=== PATIENT | female | born 1950 | race Caucasian/White ===

== ENCOUNTER 2016-08-28 16:53 | Emergency (ER) | payer OTHER ==
[~2016-08-28] VITALS: Ht 157.5 cm; Wt 90.4 kg
[~2016-08-28 16:53] MED LIST: ALBU18002 INH; FLUO20CA35 PO; LORA-741 PO; METO50TA16 PO; ONDA4TAB46 PO; ROPI4TAB3 PO; ZOLP10TA PO
[2016-08-28 17:01] VITALS: TEMP 37; Ht 157.5 cm; Wt 90.4 kg
[2016-08-28] MEDS ORDERED: HIV POST EXPOSURE PROPHYLAXIS KIT ONE (17:15)
--- NOTE | 2016-08-28 17:26 | EMERGENCY ROOM VISIT NOTE ---
ED Visit Note First contact with patient: 16:57 I did evaluate and examine this patient myself. I did guide management for the patient. I agree with the APC's assessment as discussed. Please see the APC's dictation for further details. I did independently review the x-rays and blood work. The patient was reaching into a toilet paper dispenser and a syringe with needle attached was impaled into her hand. It is unclear if there was anything in the syringe. There is nothing visible in the syringe itself which appears to be spring-loaded. 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 She denies any history of HIV. Given the nature of the injury , one must assume malicious intent and therefore I recommended postexposure prophylaxis. I did discuss risks and benefits with her. She did agree to postexposure prophylaxis. She will follow up closely with her doctor.
[2016-08-28] MEDS ORDERED: ONDANSETRON 4MG OD TAB PO ONE (17:45)
[2016-08-28] MEDS ORDERED: ROPI2TAB6 PO (17:59)
[2016-08-28] MEDS ORDERED: ALPR-411 PO (18:01)
--- NOTE | 2016-08-28 18:03 | DIAGNOSTIC IMAGING REPORT ---
LEFT HAND MIN 3 VIEWS ROUTINE CLINICAL HISTORY: L hand needle stick COMPARISON: None FINDINGS: Alignment of left hand is anatomic. There is severe arthritis of the left first carpometacarpal joint with extensive osteophytosis. No radiopaque foreign bodies are identified. There is no acute fracture. IMPRESSION: No acute fracture or radiopaque foreign body within the left hand. Electronically signed by: Yuan Petty M.D. 08/28/2016 6:02 PM Dictated Date/Time: 08/28/2016 6:00 PM
[2016-08-28] MEDS ORDERED: ONDA4TAB10 SL (18:08)
[2016-08-28] MEDS ORDERED: RALT400T PO (18:08)
[2016-08-28] MEDS ORDERED: CEPH500C PO (18:08)
[2016-08-28] MEDS ORDERED: TRVHP PO (18:08)
[2016-08-28 18:19] LABS: BASO % 0.9 %; BASO ABS # 0.06 K/uL (0-0.2); COMPLETE YES; EOS % 1.8 %; HEMATOCRIT 37.5 % (37-47); IG% 0.1 %; LYMPH % 20.3 %; LYMPH ABS # 1.39 K/uL (1.2-3.4); MEAN CELL VOLUME 83.5 fL (80-100); MEAN CORPUSCULAR HEMOGLOBIN 27.4 pg (25-34); MEAN CORPUSCULAR HGB CONC 32.8 g/dl (32-36); MEAN PLATELET VOLUME 9.7 fL (7.4-10.4); MONO % 10.9 %; PLATELET COUNT 280 K/uL (130-400); RED BLOOD COUNT 4.49 M/uL (4.2-5.4); WHITE BLOOD COUNT 6.85 K/uL (4.8-10.8)
[2016-08-28 18:30] LABS: PARTIAL THROMBOPLASTIN RATIO 0.8; PROTHROMBIN TIME (PATIENT) 10.3 SECONDS (9.0-12.0)
[2016-08-28 18:38] LABS: ALT/SGPT 22 U/L (12-78); AST/SGOT 14 U/L (15-37); BLOOD UREA NITROGEN 7 mg/dl (7-18); BUN/CREATININE RATIO 9.6 (10-20); CALCIUM 8.9 mg/dl (8.5-10.1); CARBON DIOXIDE 27 mmol/L (21-32); CHLORIDE 100 mmol/L (98-107); CREATININE 0.71 mg/dl (0.60-1.20); GLUCOSE 88 mg/dl (70-99); POTASSIUM 3.5 mmol/L (3.5-5.1); SODIUM 135 mmol/L (136-145)
[2016-08-28 18:40] VITALS: BP 160/90; PULSE 51; O2SAT 96
[2016-08-28 18:42] LABS: ALKALINE PHOSPHATASE 123 U/L (45-117)
[2016-08-28 18:47] LABS: HEPATITIS B AB POS
--- NOTE | 2016-08-28 19:44 | EMERGENCY ROOM VISIT NOTE ---
History First contact with patient: 16:57 Chief Complaint: NEEDLE STICK Stated Complaint: NEEDLE STUCK IN HAND History of Present Illness The patient is a 65 year old female who presents to the Emergency Room for evaluation of a needle stick injury to the left palm. The patient reports that she was reaching into a toilet roll dispenser at [facility] when she felt something sharp in her hand. As she was pulling her hand out of the dispenser, she heard something rattling around, and when pulling her handout, found a syringe and needle impaled in her hand. She did not try to remove it. She advised management at the store, who called for an ambulance to transport the patient to the emergency department. The patient reports that she was feeling slightly woozy and nauseated shortly after the injury happened. 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 Her tetanus immunization is also up-to-date. The patient is [id number]. The injury happened approximately one hour prior to arrival. Review of Systems 10 system review was performed and was negative except for pertinent positives and negatives as indicated in history of present illness Past Medical/Surgical History Medical Problems: (1) Anxiety Disorder, Unspecified (2) Diab Ashlie Wo Compl, Type Ii Or Unspec Type, Not Uncntrld (3) Diaphragmatic Hernia Without Obstruction Or Gangrene (4) Diverticulosis Colon (W/O Ment Of Hemorrhage) (5) Gastro-Esophageal Reflux Disease Without Esophagitis (6) Hyperlipidemia, Unspecified (7) Hypertension Nos (8) Hypothyroidism Nos (9) Idiopathic Scoliosis (10) Iron Deficiency Anemia, Unspecified (11) Lumbago (12) Major Depressive Disorder, Single Episode, Unspecified (13) Obesity (14) Obstructive Sleep Apnea (Adult) (Pediatric) (15) Osteoporosis Nos (16) Restless Legs Syndrome Family History FH: cancer Social History Smoking Status: Never Smoker Alcohol Use: none Drug Use: none Marital Status: Housing Status: lives with family Occupation Status: employed Current/Historical Medications Scheduled Cephalexin Monohydrate (Keflex), 500 MG PO TID Emtricitabine/Temofovir (Truvada 200/300MG), 1 TAB PO DAILY Fluoxetine (Prozac), 20 MG PO QAM Lorazepam (Ativan), 0.25 MG PO Q6H Metoprolol Tartrate (Lopressor) (Lopressor), 50 MG PO QAM Metoprolol Tartrate (Lopressor) (Lopressor), 100 MG PO HS Ondasetron Odt (Zofran Odt), 4 MG SL Q6H Raltegravir Potassium (Isentress), 400 MG PO BID Ropinirole (Requip), 2 MG PO HS Scheduled PRN Albuterol Sulfate (Proair Respiclick), 1-2 PUFF INH Q4H PRN for Shortness of Breath Alprazolam (Xanax), 0.5 MG PO BID PRN for Anxiety Zolpidem Tartrate (Ambien), 10 MG PO HS PRN for Sleep Allergies Coded Allergies: Latex1 -Allergic Contact Dermititis (Verified Allergy, Mild, RASH, 08/28/16) Nitroglycerin (Verified Allergy, Unknown, ITCHY AND HEADACHE AND VOMITTING , 08/28/16) Opioid Analgesics (Verified Allergy, Unknown, "VERY SENSITIVE" N/V, 08/28/16 ) Potassium Chloride (Verified Allergy, Unknown, HAD TO HAVE A CATH, 08/28/16) Physical Exam Vital Signs Date Time Temp Pulse Resp B/P (MAP) Pulse Ox O2 Delivery O2 Flow Rate FiO2 08/28/16 18:40 51 18 160/90 96 08/28/16 17:01 37.0 68 18 192/99 96 Room Air Physical Exam CONSTITUTIONAL: Healthy and well nourished. Alert and oriented X 3 with positive affect. Patient appears in mild discomfort. HEENT: Normocephalic, atraumatic. Pupils equal, round and reactive. NECK: Full active range of motion without discomfort. MUSCULOSKELETAL: Examination of the left hand shows a syringe and attached needle entering the palm of the hand, and directed toward the fourth metacarpal head region. Patient does have discomfort with flexion and extension of the fingers. Capillary refill of the fingertips is less than 2 seconds. There is no skin blanching at the site of injection, and there is no exit wound through the dorsum of the hand or fingers. INTEGUMENTARY: No rash or other significant dermatologic conditions noted. NEUROLOGIC: Left hand and fingers are sensory intact. Medical Decision & Procedures ER Provider Diagnostic Interpretation: My interpretation of left hand x-rays does not show any obvious bony injuries or radiopaque foreign body. Radiologist report is as follows: LEFT HAND MIN 3 VIEWS ROUTINE CLINICAL HISTORY: L hand needle stick COMPARISON: None FINDINGS: Alignment of left hand is anatomic. There is severe arthritis of the left first carpometacarpal joint with extensive osteophytosis. No radiopaque foreign bodies are identified. There is no acute fracture. IMPRESSION: No acute fracture or radiopaque foreign body within the left hand. Laboratory Results 08/28/16 18:05 Red Blood Count 4.49, Mean Corpuscular Volume 83.5, Mean Corpuscular Hemoglobin 27.4, Mean Corpuscular Hemoglobin Concent 32.8, Mean Platelet Volume 9.7, Neutrophils (%) (Auto) 66.0, Lymphocytes (%) (Auto) 20.3, Monocytes (%) (Auto) 10.9, Eosinophils (%) (Auto) 1.8, Basophils (%) (Auto) 0.9, Neutrophils # (Auto ) 4.52, Lymphocytes # (Auto) 1.39, Monocytes # (Auto) 0.75, Eosinophils # (Auto ) 0.12, Basophils # (Auto) 0.06 08/28/16 18:05 Test 08/28/16 18:05 White Blood Count 6.85 K/uL (4.8-10.8) Red Blood Count 4.49 M/uL (4.2-5.4) Hemoglobin 12.3 g/dL (12.0-16.0) Hematocrit 37.5 % (37-47) Mean Corpuscular Volume 83.5 fL (80-100) Mean Corpuscular Hemoglobin 27.4 pg (25-34) Mean Corpuscular Hemoglobin Concent 32.8 g/dl (32-36) Platelet Count 280 K/uL (130-400) Mean Platelet Volume 9.7 fL (7.4-10.4) Neutrophils (%) (Auto) 66.0 % Lymphocytes (%) (Auto) 20.3 % Monocytes (%) (Auto) 10.9 % Eosinophils (%) (Auto) 1.8 % Basophils (%) (Auto) 0.9 % Neutrophils # (Auto) 4.52 K/uL (1.4-6.5) Lymphocytes # (Auto) 1.39 K/uL (1.2-3.4) Monocytes # (Auto) 0.75 K/uL (0.11-0.59) Eosinophils # (Auto) 0.12 K/uL (0-0.5) Basophils # (Auto) 0.06 K/uL (0-0.2) RDW Standard Deviation 42.3 fL (36.4-46.3) RDW Coefficient of Variation 14.0 % (11.5-14.5) Immature Granulocyte % (Auto) 0.1 % Immature Granulocyte # (Auto) 0.01 K/uL (0.00-0.02) Prothrombin Time 10.3 SECONDS (9.0-12.0) Prothromb Time International Ratio 1.0 (0.9-1.1) Activated Partial Thromboplast Time 19.8 SECONDS (21.0-31.0) Partial Thromboplastin Ratio 0.8 Anion Gap 8.0 mmol/L (3-11) Est Creatinine Clear Calc Drug Dose 80.4 ml/min Estimated GFR () 102.2 Estimated GFR (Non- 88.1 BUN/Creatinine Ratio 9.6 (10-20) Calcium Level 8.9 mg/dl (8.5-10.1) Total Bilirubin 0.4 mg/dl (0.2-1) Direct Bilirubin < 0.1 mg/dl (0-0.2) Aspartate Amino Transf (AST/SGOT) 14 U/L (15-37) Alanine Aminotransferase (ALT/SGPT) 22 U/L (12-78) Alkaline Phosphatase 123 U/L (45-117) Total Protein 7.3 gm/dl (6.4-8.2) Albumin 3.6 gm/dl (3.4-5.0) Hepatitis B Surface Antigen NEG (NEG) Hepatitis B Surface Antibody POS Medications Administered Medications (Trade) Dose Ordered Sig/Mary Route Start Time Stop Time Status Last Admin Dose Admin Miscellaneous (Hiv Post Exposure Prophylaxis Kit) 1 ea NOW ONCE N/A 08/28/16 17:15 08/28/16 17:27 DC 08/28/16 18:06 1 EA Ondansetron HCl (Zofran Odt) 4 mg ONE ONCE PO 08/28/16 17:45 08/28/16 17:46 DC 08/28/16 18:05 4 MG ED Course Patient history and physical exam were performed. Nurse's notes were reviewed. Blood pressure is elevated, but did improve while in the emergency department with persistent elevation. Physical exam showed a syringe and needle impaled within the palm of the left hand. I did suggest performing an x-ray to determine where the needle was situated, assessing the possibility of intraosseous or other bony injury. I also discussed my concern for this being a malicious event, which is concerning for possible blood-borne pathogen. I did suggest performing lab work and starting the patient on HIV post exposure prophylaxis. The patient was also seen and examined by Dr. Mathew, ED attending physician, who also expressed his concern and also suggested HIV post exposure prophylaxis. Side effects of the medication were discussed with the patient, as well as the duration of treatment. The patient did elect HIV post exposure prophylaxis, and signed an informed consent for baseline HIV testing. IV access was established, and labs were drawn, including HIV test. Lab work was grossly normal. The patient was given Zofran ODT for her nausea. An x-ray of the hand was normal, noting that the syringe/needle was removed by Dr. Mathew prior to x-ray. The patient received a home kit for HIV postexposure prophylaxis, including Truvada and Isentress, which should cover for 3 days. The patient was provided the balance prescription for these 2 medications for a total one week. She was also provided prescriptions for Keflex and Zofran ODT. The patient was instructed to follow-up with her PCP to review her test results toward middle of next week, and to see how she is tolerating her medications. The patient reports that she no longer had any drowsiness or nausea, and was discharged with her . Medical Decision See previous section. I do feel that the patient is at high risk for possible blood-borne pathogen given the duration of this event and a large hollow bore needle. Given the high risk for malicious activity, I do feel that the patient warrants HIV postexposure prophylaxis. Impression Primary Impression: Needle stick of left hand Departure Information Dispostion Home / Self-Care Prescriptions Cephalexin Monohydrate (Keflex) 500 Mg Cap 500 MG PO TID for 7 Days, #21 CAP Prov: Mick Siddiqi PA 08/28/16 Ondasetron Odt (ZOFRAN ODT) 4 Mg Tab 4 MG SL Q6H for Nausea, #20 TAB Prov: Mick Siddiqi PA 08/28/16 Raltegravir Potassium (ISENTRESS) 400 Mg Tab 400 MG PO BID, #8 TAB Prov: Mick Siddiqi PA 08/28/16 Emtricitabine/Temofovir (Truvada 200/300MG) Tab 1 TAB PO DAILY, #4 TAB Prov: Mikc Siddiqi PA 08/28/16 Forms HOME CARE DOCUMENTATION FORM, IMPORTANT VISIT INFORMATION Patient Instructions My [facility] Additional Instructions Take Truvada and Isentriss as prescribed. Zofran ODT if needed for nausea. Follow-up with your family doctor early next week to review lab work and discuss a continued three-week treatment of your medications, pending tolerance.
--- NOTE | 2016-08-31 01:22 | EMERGENCY ROOM VISIT NOTE ---
ED Visit Note First contact with patient: 16:57 I was asked by the ED charge nurse to speak again with the patient regarding her current HIV postexposure prophylaxis medications. The patient underwent outpatient x-rays of her facial bones this afternoon on 08/30/16, after suffering a fall due to weakness. These x-rays were ordered by the patient's PCP, Dr. Pettit. The patient reports that she has had noticeable weakness and nausea after starting the medications. The Zofran ODT prescription that was prescribed by me is helping with the nausea. The patient's and son were with her today as well. The reports that Kendra is now refusing to cover her medical expenses, including her prescription medication costs. She was told that her medications would cost approximately $1000 per pill, and taking 3 pills for the next 28 days is cost prohibitive. The family admits that they have not attempted to check with their pharmacist at [facility] to see what her insurance will cover. I did discuss the case with Roselia, our clinical pharmacist, who did call [facility] pharmacy to confirm the cost of her medication. She also spoke with the patient regarding the relative risk of michele blood -borne pathogens, treatment regimen and side effects. We also explained to the family that the hospital was unable to provide these medications. I have a suspicion that since the patient has had significant side effects from the medications that she may have to stop them anyway. I did suggest that she discuss this further with her PCP. The family was happy with the discussion that was provided. I also explained that they could always have her PCP refer her to the Infectious Disease office as well, and the patient reported that she did not feel that it was necessary and will discuss further with Dr. Pettit. I did review the previous note regarding the phone conversation between the patient's son and Gail Valencia, Administration and Service Excellence, regarding location of the syringe that impaled the patient's hand. The family did not make any mention of this conversation during my time with them.
== END 2016-08-28 18:42 | disposition home or self-care (01) ==
LOC: EDBD 16:53 → C.EDB 16:54
DX: S61.442A Puncture wound with foreign body of left hand, initial encounter (principal); W46.0XXA Contact with hypodermic needle, initial encounter; F41.9 Anxiety disorder, unspecified; E11.9 Type 2 diabetes mellitus without complications; K21.9 Gastro-esophageal reflux disease without esophagitis; E78.5 Hyperlipidemia, unspecified; I10 Essential (primary) hypertension; E03.9 Hypothyroidism, unspecified; M41.20 Other idiopathic scoliosis, site unspecified; F32.9 Major depressive disorder, single episode, unspecified; E66.9 Obesity, unspecified; G47.33 Obstructive sleep apnea (adult) (pediatric); M81.0 Age-related osteoporosis without current pathological fracture; Z80.9 Family history of malignant neoplasm, unspecified; Z79.899 Other long term (current) drug therapy

== ENCOUNTER → 2016-08-30 | Outpatient (CLI) | payer OTHER ==
[~2016-08-30] MED LIST changes: +ALPR-411 PO; +CEPH500C PO; +ONDA4TAB10 SL; -ONDA4TAB46 PO; +RALT400T PO; +ROPI2TAB6 PO; -ROPI4TAB3 PO; +TRVHP PO
--- NOTE | 2016-08-30 18:51 | DIAGNOSTIC IMAGING REPORT ---
FACIAL BONES MIN 3 VIEWS RTN CLINICAL HISTORY: Syncope with left facial injury. COMPARISON STUDY: Head CT May 29, 2011. FINDINGS: No acute facial fracture is identified by radiography. There are no air-fluid levels within maxillary sinuses. Orbital floors are grossly intact. IMPRESSION: No facial fracture identified by radiography. Electronically signed by: Yuan Petty M.D. 08/30/2016 6:50 PM Dictated Date/Time: 08/30/2016 6:49 PM
== END | disposition home or self-care (01) ==
LOC: C.RAD 17:48
PROVIDERS: ATTEND Family Medicine
DX: R55 Syncope and collapse (principal); S09.93XA Unspecified injury of face, initial encounter; X58.XXXA Exposure to other specified factors, initial encounter

== ENCOUNTER 2017-06-03 11:53 | Inpatient (IN) | payer OTHER ==
[2017-06-02 20:00] VITALS: O2SAT 94
[~2017-06-03] VITALS: Ht 154.9 cm; Wt 83.0 kg
[~2017-06-03 11:53] MED LIST changes: -CEPH500C PO; -ONDA4TAB10 SL; -RALT400T PO; -TRVHP PO
[2017-06-03] MEDS ORDERED: FLUO40CA8 PO (12:25)
[2017-06-03 12:30] LABS: HEMATOCRIT 43.1 % (37-47); MEAN CELL VOLUME 84.3 fL (80-100); MEAN CORPUSCULAR HEMOGLOBIN 29.4 pg (25-34); MEAN CORPUSCULAR HGB CONC 34.8 g/dl (32-36); MEAN PLATELET VOLUME 8.9 fL (7.4-10.4); PLATELET COUNT 499 K/uL (130-400); RED CELL DISTRIBUTION WIDTH CV 13.6 % (11.5-14.5); RED CELL DISTRIBUTION WIDTH SD 41.6 fL (36.4-46.3)
[2017-06-03] MEDS ORDERED: FAMOTIDINE 20MG/5ML IV PUSH IV STA (12:35)
[2017-06-03 12:38] LABS: PTT PATIENT 25.7 SECONDS (21.0-31.0)
[2017-06-03 12:42] LABS: ALBUMIN 4.3 gm/dl (3.4-5.0); ALT/SGPT 28 U/L (12-78); AST/SGOT 22 U/L (15-37); BLOOD UREA NITROGEN 7 mg/dl (7-18); CALCIUM 9.5 mg/dl (8.5-10.1); CARBON DIOXIDE 21 mmol/L (21-32); CREATININE 0.85 mg/dl (0.60-1.20); GLUCOSE 147 mg/dl (70-99); SODIUM 128 mmol/L (136-145)
[2017-06-03 12:47] LABS: ALKALINE PHOSPHATASE 151 U/L (45-117); CKMB < 0.5 ng/ml (0.5-3.6); TOTAL PROTEIN 9.3 gm/dl (6.4-8.2)
--- NOTE | 2017-06-03 13:06 | DIAGNOSTIC IMAGING REPORT ---
CHEST ONE VIEW PORTABLE CLINICAL HISTORY: Chest pain. COMPARISON STUDY: Chest CT December 30, 2014. FINDINGS: There may be calcific tendinitis of the left rotator cuff. No pneumothorax or pleural effusion is noted. There is no evidence for pulmonary edema. Cardiomediastinal silhouette is stable. There is no consolidation to suggest pneumonia. IMPRESSION: No acute cardiopulmonary findings. Electronically signed by: Yuan Petty M.D. 06/03/2017 1:04 PM Dictated Date/Time: 06/03/2017 1:04 PM
[2017-06-03] MEDS ORDERED: SODIUM CHLORIDE 0.9% 1000ML 1,000 ML IV STA (14:14)
[2017-06-03] MEDS ORDERED: POTASSIUM CHLORIDE 10 MEQ TABCR PO STA (14:14)
[2017-06-03] MEDS ORDERED: ONDANSETRON INJ 2 MG/ML 2 ML VIAL IV STA (14:36)
[2017-06-03] MEDS ORDERED: LORAZEPAM 2 MG/ML 1 ML VIAL IV STA (14:36)
--- NOTE | 2017-06-03 15:41 | History and Physical ---
History & Physical Date & Time of Service: Jun 03, 2017 at 14:46 Chief Complaint: Chest Pain Primary Care Physician: Cierra Lincoln M.D. History of Present Illness Source: patient Ms. Alexis has been having chest pain since yesterday with weakness and nausea. She has a history of hiatal hernia which she had surgery for two years ago. She is often nauseas at baseline but today she had a large coffee ground emesis. No dark tarry stools or blood in her stool. She does not take NSAIDs, ASA or anticoagulation. The chest pain is substernal and came on while she was at rest sitting. It does not get better or worse with activity or with eating. She is sob which comes and goes. She coughs all the time which is her baseline. She has had palpitations and dizziness since yesterday ROS Constitutional: no chills, aches, sweats or fever Respiratory: see HPI Cardiac: see HPI GI: see HPI : no dysuria or hesitancy Extremities: generalized weakness Skin: no rash All other systems reviewed and negative Pmhx: hypoglycemia, htn, reactive airway, bladder distention Past Medical/Surgical History Medical Problems: (1) Anemia (2) Anxiety Disorder, Unspecified (3) Diab Ashlie Wo Compl, Type Ii Or Unspec Type, Not Uncntrld (4) Diaphragmatic Hernia Without Obstruction Or Gangrene (5) Diverticulosis Colon (W/O Ment Of Hemorrhage) (6) Gastric volvulus (7) Gastro-Esophageal Reflux Disease Without Esophagitis (8) Hyperlipidemia, Unspecified (9) Hypertension Nos (10) Hypothyroidism Nos (11) LAMBERTO (iron deficiency anemia) (12) Idiopathic Scoliosis (13) Iron Deficiency Anemia, Unspecified (14) Left knee pain (15) Lumbago (16) Major Depressive Disorder, Single Episode, Unspecified (17) Obesity (18) Obstructive Sleep Apnea (Adult) (Pediatric) (19) Osteoporosis Nos (20) Popliteal cyst (21) Restless Legs Syndrome Surgical Problems: (1) Status post Hank fundoplication Family History FH: cancer Mother and father had COPD, emphysema, heart conditions Social History Smoking Status: Never Smoker Alcohol Use: occasionally Drug Use: none Marital Status: Housing status: lives with significant other Occupational Status: retired Immunizations History of Influenza Vaccine: No History of Tetanus Vaccine?: No History of Pneumococcal: No History of Hepatitis B Vaccine: Yes Allergies Coded Allergies: Latex1 -Allergic Contact Dermititis (Verified Allergy, Mild, RASH, 06/03/17) Nitroglycerin (Verified Allergy, Unknown, ITCHY AND HEADACHE AND VOMITTING , 06/03/17) Opioid Analgesics (Verified Allergy, Unknown, "VERY SENSITIVE" N/V, 06/03/17 ) Potassium Chloride (Verified Allergy, Unknown, HAD TO HAVE A CATH, 06/03/17) Home Medications Scheduled Fluoxetine (Prozac), 40 MG PO DAILY Metoprolol Tartrate (Lopressor) (Lopressor), 50 MG PO QAM Metoprolol Tartrate (Lopressor) (Lopressor), 100 MG PO HS Ropinirole (Requip), 2 MG PO HS Scheduled PRN Albuterol Sulfate (Proair Respiclick), 1-2 PUFF INH Q4H PRN for Shortness of Breath Alprazolam (Xanax), 0.5 MG PO BID PRN for Anxiety Zolpidem Tartrate (Ambien), 10 MG PO HS PRN for Sleep Physical Exam Vital Signs Date Time Temp Pulse Resp B/P (MAP) Pulse Ox O2 Delivery O2 Flow Rate FiO2 06/03/17 13:53 72 18 97 06/03/17 13:31 134/92 06/03/17 13:23 73 19 95 06/03/17 13:01 163/99 06/03/17 12:53 72 16 94 06/03/17 12:31 153/100 06/03/17 12:23 68 14 95 06/03/17 12:20 95 Room Air 06/03/17 12:10 37.0 68 18 167/101 95 Room Air 06/03/17 12:07 167/101 06/03/17 12:06 69 General: no distress Eyes: normal inspection, PERLL Respiratory: chest non tender, clear to auscultation, normal breath sounds, no respiratory distress, no accessory muscle use Cardiac: regular rate and rhythm, no rub or gallop, no murmur, no edema, no jvd , chest pain reproducible to palpation of chest left of sternum GI/: active bowel sounds, upper left quadrant tenderness to palpation, soft, non distended Extremities: normal range of motion, normal strength, non tender Neuro/Psych: alert and oriented x 3, normal mood and affect Skin: normal color, dry Diagnostics Laboratory Results Results Past 24 Hours Test 06/03/17 11:50 06/03/17 12:27 Range/Units White Blood Count 15.00 4.8-10.8 K/uL Red Blood Count 5.11 4.2-5.4 M/uL Hemoglobin 15.0 12.0-16.0 g/dL Hematocrit 43.1 37-47 % Mean Corpuscular Volume 84.3 80-100 fL Mean Corpuscular Hemoglobin 29.4 25-34 pg Mean Corpuscular Hemoglobin Concent 34.8 32-36 g/dl RDW Standard Deviation 41.6 36.4-46.3 fL RDW Coefficient of Variation 13.6 11.5-14.5 % Platelet Count 499 130-400 K/uL Mean Platelet Volume 8.9 7.4-10.4 fL Prothrombin Time 10.2 9.0-12.0 SECONDS Prothromb Time International Ratio 1.0 0.9-1.1 Activated Partial Thromboplast Time 25.7 21.0-31.0 SECONDS Partial Thromboplastin Ratio 1.0 Sodium Level 128 136-145 mmol/L Potassium Level 3.0 3.5-5.1 mmol/L Chloride Level 93 98-107 mmol/L Carbon Dioxide Level 21 21-32 mmol/L Anion Gap 14.0 3-11 mmol/L Blood Urea Nitrogen 7 7-18 mg/dl Creatinine 0.85 0.60-1.20 mg/dl Est Creatinine Clear Calc Drug Dose 62.1 ml/min Estimated GFR () 81.6 Estimated GFR (Non- 70.4 BUN/Creatinine Ratio 7.7 10-20 Random Glucose 147 70-99 mg/dl Calcium Level 9.5 8.5-10.1 mg/dl Total Bilirubin 0.5 0.2-1 mg/dl Aspartate Amino Transf (AST/SGOT) 22 15-37 U/L Alanine Aminotransferase (ALT/SGPT) 28 12-78 U/L Alkaline Phosphatase 151 45-117 U/L Total Creatine Kinase 30 26-192 U/L Creatine Kinase MB < 0.5 0.5-3.6 ng/ml Creatine Kinase MB Ratio 0-3.0 Total Protein 9.3 6.4-8.2 gm/dl Albumin 4.3 3.4-5.0 gm/dl Globulin 5.0 2.5-4.0 gm/dl Albumin/Globulin Ratio 0.9 0.9-2 Bedside Troponin I < 0.030 0-0.045 ng/ml CXR normal EKG Normal sinus rhythm Possible Left atrial enlargement Nonspecific T wave abnormality Abnormal ECG When compared with ECG of 29-DEC-2014 21:58, T wave inversion more evident in Inferior leads Nonspecific T wave abnormality now evident in Anterolateral leads Confirmed by TRINITY MCCULLOUGH ([id number]) on 06/03/2017 1:43:16 PM Impression Assessment and Plan Ms. Alexis is a 66 year old woman here for chest pain R/o CAD/CP - admit tele obs - EKG daily and with chest pain, initial EKG showed more prominent T wave inversion in inferior lead and new T wave inversions in anterolateral leads - trend troponins, initial troponin wnl - lipids, A1c am - will hold off on ASA or other platelets given coffee ground emesis - patient's chest pain is reproducible to palpation so I think it is less likely that her chest pain is cardiac Coffee ground emesis, abdominal pain - lipase, repeat hgb pending - consult GI - protonix IV push, GI cocktail - NPO except meds, chips and sips until seen by GI Dehydration, hyponatremia, hypokalemia - due to poor intake - Hgb 15, plt 499 - likely due to dehydration - NS 40K @ 120 ml/hr - patient has an allergy to IV potassium as she states that it caused her to have to go to lab head due to chest/jaw pain the last time she received it, however given the risk of administering po given her hematemesis, will add potassium to her fluids so that it runs slow enough to avoid causing her to have a pain reaction. - 1g IV magnesium - will check level in am - prp am Difficulty swallowing, chronic cough - Speech eval Anxiety - continue home Xanax Full code No chemoprophylaxis due to coffee ground emesis Resident Physician Supervision Note: I was present with Giovanni Sorensen DISPLAY MAKER during the history and exam. I discussed the case with the resident and agree with the findings and plan as documented in the note. Any exceptions or clarifications are listed here: 66 y/o F Hx hiatal hernia surgerym chronic dysphagia, GERD, HTN, DM II, HPL - presents with acute CP and SOB followed by episode of coffee ground emesis. She denies a fever or previous such episodes. She obtained relief with NTG. Initial labs are notable for hypokalemia and hyponatremia. OE AAO x 3 S1,2 R - L sided chest wall pain with palpations CTAB NT, ND No CCE P: CP - Suspect GI source - trend Hb, PPI, GI consult - we will obtain a gastro- occult if vomiting recurs - she is assigned to telemetry for R/O of an SD although we will not currently treat with ASA or any anticoagulation - initial trop and EKG do not support ischemia Electrolytes will be repleted Will obtain a swallow eval as she reports dysphagia and coughing when she eats Documented By: Leighton Sandhu Advanced Directives Existing Advance Directive: No Existing Living Will: No Existing Power of Health And Wellness Coach: No Existing Health Care Proxy: No Resuscitation Status Full code VTE Prophylaxis Will order VTE Prophylaxis: Yes Reason for no VTE drug order: Contraindicated
[2017-06-03] MEDS ORDERED: ONDANSETRON INJ 2 MG/ML 2 ML VIAL IV PRN ×2 (15:45→18:30)
[2017-06-03] MEDS ORDERED: GI COCKTAIL PO PRN (15:45)
--- NOTE | 2017-06-03 15:57 | EMERGENCY ROOM VISIT NOTE ---
History Report prepared by Harman: Mairtza Elena Under the Supervision of: Dr. William Zaragoza M.D. 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 The patient presents to the ED by EMS. Her pain was an 8/10 at onset. She received aspirin and nitro in route. She currently rates her discomfort as a 5/10 in severity. The pain sometimes changes with movement. She reports a brief hot flash with the pain. She reports an episode of coffee ground emesis today. She has had ongoing generalized weakness. She reports chronic nausea and cough. She has constipation which she attributes to Zofran. She has a history of esophageal hernia and pericarditis. She has had cardiac catheterizations in the past. Pt denies LOC, headache, fevers, chills, diaphoresis, visual changes, neck pain, breathing difficulties, abdominal pain, back pain, melena, hematochezia, urinary symptoms, numbness, lymphadenopathy, rash, or other complaints. 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 Review of Systems See HPI for pertinent positives and negatives. A total of ten systems were reviewed and were otherwise negative. Past Medical & Surgical Medical Problems: (1) Anxiety Disorder, Unspecified (2) Chest pain (3) Diab Ashlie Wo Compl, Type Ii Or Unspec Type, Not Uncntrld (4) Diaphragmatic Hernia Without Obstruction Or Gangrene (5) Diverticulosis Colon (W/O Ment Of Hemorrhage) (6) Gastric volvulus (7) Gastro-Esophageal Reflux Disease Without Esophagitis (8) Hyperlipidemia, Unspecified (9) Hypertension Nos (10) Hypothyroidism Nos (11) LAMBERTO (iron deficiency anemia) (12) Idiopathic Scoliosis (13) Iron Deficiency Anemia, Unspecified (14) Lumbago (15) Major Depressive Disorder, Single Episode, Unspecified (16) Obesity (17) Obstructive Sleep Apnea (Adult) (Pediatric) (18) Osteoporosis Nos (19) Restless Legs Syndrome Surgical Problems: (1) Status post Hank fundoplication Family History FH: cancer Social History Smoking Status: Never Smoker Alcohol Use: none Drug Use: none Marital Status: Housing Status: lives with family Occupation Status: employed Current/Historical Medications Scheduled Fluoxetine (Prozac), 40 MG PO DAILY Metoprolol Tartrate (Lopressor) (Lopressor), 50 MG PO QAM Metoprolol Tartrate (Lopressor) (Lopressor), 100 MG PO HS Ropinirole (Requip), 2 MG PO HS Scheduled PRN Albuterol Sulfate (Proair Respiclick), 1-2 PUFF INH Q4H PRN for Shortness of Breath Alprazolam (Xanax), 0.5 MG PO BID PRN for Anxiety Zolpidem Tartrate (Ambien), 10 MG PO HS PRN for Sleep Allergies Coded Allergies: Latex1 -Allergic Contact Dermititis (Verified Allergy, Mild, RASH, 06/03/17) Nitroglycerin (Verified Allergy, Unknown, ITCHY AND HEADACHE AND VOMITTING , 06/03/17) Opioid Analgesics (Verified Allergy, Unknown, "VERY SENSITIVE" N/V, 06/03/17 ) Potassium Chloride (Verified Allergy, Unknown, HAD TO HAVE A CATH, 06/03/17) Physical Exam Vital Signs Date Time Temp Pulse Resp B/P (MAP) Pulse Ox O2 Delivery O2 Flow Rate FiO2 06/03/17 15:50 71 06/03/17 15:41 71 18 96 Room Air 06/03/17 13:53 72 18 97 06/03/17 13:31 134/92 06/03/17 13:23 73 19 95 06/03/17 13:01 163/99 06/03/17 12:53 72 16 94 06/03/17 12:31 153/100 06/03/17 12:23 68 14 95 06/03/17 12:20 95 Room Air 06/03/17 12:10 37.0 68 18 167/101 95 Room Air 06/03/17 12:07 167/101 06/03/17 12:06 69 Physical Exam GENERAL: Awake, alert, well-appearing, in no distress HENT: Normocephalic, atraumatic. Oropharynx unremarkable. EYES: Normal conjunctiva. Sclera non-icteric. NECK: Supple. No nuchal rigidity. FROM. No masses. RESPIRATORY: Clear to auscultation. No wheezes. No rales. Normal respiratory effort. CARDIAC: Normal rate. Normal rhythm. No murmurs. No rubs. Extremities warm and well perfused. Pulses equal. No JVD. GI: Soft, non-distended. No tenderness to palpation. No rebound or guarding. No masses. RECTAL: Deferred. MUSCULOSKELETAL: Atraumatic. Chest examination reveals no tenderness. The back is symmetrical on inspection without obvious abnormality. There is no CVA tenderness to palpation. No joint edema. LOWER EXTREMITIES: Calves are equal size bilaterally and non-tender. No edema. No discoloration. NEURO: Normal sensorium. No sensory or motor deficits noted. SKIN: No rash or jaundice noted. Medical Decision & Procedures ER Provider Diagnostic Interpretation: Radiology results as stated below per my review and radiologist interpretation: CHEST ONE VIEW PORTABLE CLINICAL HISTORY: Chest pain. COMPARISON STUDY: Chest CT December 30, 2014. FINDINGS: There may be calcific tendinitis of the left rotator cuff. No pneumothorax or pleural effusion is noted. There is no evidence for pulmonary edema. Cardiomediastinal silhouette is stable. There is no consolidation to suggest pneumonia. IMPRESSION: No acute cardiopulmonary findings. Electronically signed by: Yuan Petty M.D. 06/03/2017 1:04 PM Dictated Date/Time: 06/03/2017 1:04 PM Laboratory Results 06/03/17 11:50 06/03/17 11:50 Test 06/03/17 11:50 06/03/17 12:27 06/03/17 15:44 Red Blood Count 5.11 M/uL (4.2-5.4) Mean Corpuscular Volume 84.3 fL (80-100) Mean Corpuscular Hemoglobin 29.4 pg (25-34) Mean Corpuscular Hemoglobin Concent 34.8 g/dl (32-36) RDW Standard Deviation 41.6 fL (36.4-46.3) RDW Coefficient of Variation 13.6 % (11.5-14.5) Mean Platelet Volume 8.9 fL (7.4-10.4) Prothrombin Time 10.2 SECONDS (9.0-12.0) Prothromb Time International Ratio 1.0 (0.9-1.1) Activated Partial Thromboplast Time 25.7 SECONDS (21.0-31.0) Partial Thromboplastin Ratio 1.0 Anion Gap 14.0 mmol/L (3-11) Est Creatinine Clear Calc Drug Dose 62.1 ml/min Estimated GFR () 81.6 Estimated GFR (Non- 70.4 BUN/Creatinine Ratio 7.7 (10-20) Calcium Level 9.5 mg/dl (8.5-10.1) Total Bilirubin 0.5 mg/dl (0.2-1) Aspartate Amino Transf (AST/SGOT) 22 U/L (15-37) Alanine Aminotransferase (ALT/SGPT) 28 U/L (12-78) Alkaline Phosphatase 151 U/L (45-117) Total Creatine Kinase 30 U/L (26-192) Creatine Kinase MB < 0.5 ng/ml (0.5-3.6) Creatine Kinase MB Ratio (0-3.0) Total Protein 9.3 gm/dl (6.4-8.2) Albumin 4.3 gm/dl (3.4-5.0) Globulin 5.0 gm/dl (2.5-4.0) Albumin/Globulin Ratio 0.9 (0.9-2) Bedside Troponin I < 0.030 ng/ml (0-0.045) Laboratory results reviewed by me Medications Administered Medications (Trade) Dose Ordered Sig/Mary Route Start Time Stop Time Status Last Admin Dose Admin Famotidine (Pepcid 20mg Iv Push) 20 mg ONE STAT IV 06/03/17 12:35 06/03/17 12:36 DC 06/03/17 12:43 20 MG Sodium Chloride 1,000 ml @ 125 mls/hr Q8H STAT IV 06/03/17 14:14 06/03/17 22:13 06/03/17 15:30 125 MLS/HR Potassium Chloride (Klor-Con M10) 20 meq NOW STAT PO 06/03/17 14:14 06/03/17 14:16 DC 06/03/17 14:25 20 MEQ Lorazepam (Ativan Inj) 0.5 mg NOW STAT IV 06/03/17 14:36 06/03/17 14:38 DC 06/03/17 14:36 0.5 MG Ondansetron HCl (Zofran Inj) 4 mg NOW STAT IV 06/03/17 14:36 06/03/17 14:38 DC 06/03/17 14:36 4 MG ECG Per My Interpretation Indication: chest pain Rate (beats per minute): 71 Rhythm: normal sinus Findings: nonspecific-ST abn, other (left atrial enlargement) Comparison ECG Date: 29-Dec-2014 Change: Nonspecific T wave abnormality in anterior new. ED Course 1227: The patient was evaluated in room A10. A complete history and physical exam was performed. 1235: Famotidine 20 mg IV. 1346: I reevaluated the patient. I updated her on the results. 1414: Potassium Chloride 20 meq PO, NSS 1000 ml @ 125 mls/hr IV. 1420: I reevaluated the patient. She was feeling nauseous and anxious. I discussed the test results and treatment plan with her. The patient will be evaluated for further management. 1433: I discussed the patient's case with Dr. Sandhu, [facility] [place]. The patient will be evaluated for further treatment and disposition. 1436: Zofran Inj 4 mg IV, Lorazepam 0.5 mg IV. Medical Decision Prior records/ancillary studies reviewed. Triage Nursing notes reviewed and agree them. Additional history obtained from the family. The patient's history was concerning for chest pain. Differential diagnosis: Etiologies such as cardiac ischemia, aortic dissection, pulmonary embolism, pneumonia, pneumothorax, musculoskeletal, infections, pericarditis, myocarditis , esophageal rupture, gastrointestinal, as well as others were entertained. Physical examination: As above. ER treatment provided: IV Pepcid Normal saline hydration Oral potassium IV Zofran IV Ativan On reassessment the patient felt better. Diagnostic interpretation by me: The electrocardiogram was negative for pathologic change. The labs revealed a mild leukocytosis on CBC. Chemistry panel revealed hyponatremia and hypokalemia. Cardiac markers negative. Imaging studies: Chest x-ray as above The patient has some acute changes on her electric cardiogram. She has electrolyte abnormalities as well as a mild leukocytosis. Further management will be necessary in the hospital. Consultation: A consultation was placed with the hospitalist. The case was discussed and diagnostics were reviewed. The patient was evaluated in the ER for further treatment. Medication Reconcilliation Current Medication List: was personally reviewed by me Blood Pressure Screening Patient's blood pressure: Elevated blood pressure Referred to hospitalist. Consults Time Called: 1425 Consulting Physician: Dr. Sandhu [facility] hospitalist Returned Call: 1433 Discussed the patient's case. The patient will be evaluated for further treatment and disposition. Impression Primary Impression: Substernal chest pain Additional Impressions: Acute electrocardiogram changes Hyponatremia Hypokalemia Scribe Attestation The scribe's documentation has been prepared under my direction and personally reviewed by me in its entirety. I confirm that the note above accurately reflects all work, treatment, procedures, and medical decision making performed by me. Departure Information Dispostion Being Evaluated By Hospitalist Referrals Cierra Lincoln M.D. (PCP) Patient Instructions My [facility] Problem Qualifiers
[2017-06-03 16:13] LABS: HEMATOCRIT 41.5 % (37-47); HEMOGLOBIN 14.4 g/dL (12.0-16.0)
[2017-06-03] MEDS ORDERED: ALBUTEROL HFA 8 GM INHALER INH PRN (16:15)
[2017-06-03 16:45] VITALS: BP 122/90; PULSE 79; TEMP 36.9; O2SAT 94; Ht 154.9 cm; Wt 83.0 kg
[2017-06-03] MEDS ORDERED: MAGNESIUM SULFATE 1GM / D5W 1 GM in PREMIXED IN D5W 100 ML IV ONE (16:45)
[2017-06-03] MEDS ORDERED: ALUMINUM/MAGNESIUM SUSP 72 ML, LIDOCAINE HCL 2% VISCOUS SOLN 24 ML, BARCODE IDENTIFIER ... PO PRN ×2 (16:45)
[2017-06-03] MEDS: POTASSIUM CHLORIDE INJ 40 MEQ in SODIUM CHLORIDE 0.9% 1000ML 1,000 ML IV SCH (16:58)
[2017-06-03 18:22] LABS: HEMATOCRIT 39.7 % (37-47); HEMOGLOBIN 13.7 g/dL (12.0-16.0)
[2017-06-03 19:59] VITALS: BP 154/90; PULSE 76; TEMP 36.8; O2SAT 94
[2017-06-03] MEDS: ROPINIROLE HCL 1 MG TAB PO SCH (21:07)
[2017-06-03] MEDS: PANTOprazole INJ 40 MG in SYRINGE 0 ML IV SCH (21:08)
[2017-06-03] MEDS: METOPROLOL TARTRATE 50 MG TAB PO SCH (21:08)
[2017-06-03] MEDS: ZOLPIDEM TARTRATE 10 MG TAB PO PRN (23:15)
[2017-06-04] VITALS (9 sets, daily range): BP systolic 106–160; BP diastolic 66–91; PULSE 52–69; TEMP 36.4–37.2; O2SAT 92–96
[2017-06-04 00:11] LABS: HEMATOCRIT 37.6 % (37-47); HEMOGLOBIN 12.9 g/dL (12.0-16.0)
[2017-06-04] MEDS: ALPRAZOLAM 0.5 MG TAB PO PRN ×2 (01:43→23:57)
[2017-06-04] MEDS: POTASSIUM CHLORIDE INJ 40 MEQ in SODIUM CHLORIDE 0.9% 1000ML 1,000 ML IV SCH ×3 (02:47→18:18)
[2017-06-04 06:34] LABS: HEMATOCRIT 36.5 % (37-47); HEMOGLOBIN 12.5 g/dL (12.0-16.0); MEAN CELL VOLUME 85.5 fL (80-100); MEAN CORPUSCULAR HEMOGLOBIN 29.3 pg (25-34); MEAN CORPUSCULAR HGB CONC 34.2 g/dl (32-36); MEAN PLATELET VOLUME 8.4 fL (7.4-10.4); PLATELET COUNT 348 K/uL (130-400); RED CELL DISTRIBUTION WIDTH SD 43.6 fL (36.4-46.3); WHITE BLOOD COUNT 10.16 K/uL (4.8-10.8)
[2017-06-04 07:20] LABS: CALCIUM 8.7 mg/dl (8.5-10.1); CREATININE 0.96 mg/dl (0.60-1.20); POTASSIUM 3.5 mmol/L (3.5-5.1)
[2017-06-04 08:09] LABS: HEMOGLOBIN A1C 5.4 % (4.5-5.6)
[2017-06-04] MEDS: PANTOprazole INJ 40 MG in SYRINGE 0 ML IV SCH ×2 (08:23→20:41)
[2017-06-04] MEDS: METOPROLOL TARTRATE 50 MG TAB PO SCH ×2 (08:23→21:00)
[2017-06-04] MEDS: FLUOXETINE HCL 20 MG CAP PO SCH (08:23)
--- NOTE | 2017-06-04 13:15 | Progress Note ---
Subjective Date of Service: Jun 04, 2017. Subjective this is having less intense symptoms but still with some chest pressure and pain , did not have any additional vomitus and is not having some melena, when quizzed she feels this is similar to her typical Hiatal hernia issues and she did have some wretching associated with it, she has has no typical angina symptoms and gives a history of pericarditis Problem List Medical Problems: (1) Acute electrocardiogram changes Status: Acute (2) Hypokalemia Status: Acute (3) Hyponatremia Status: Acute (4) Substernal chest pain Status: Acute Review of Systems Constitutional: No fever, No chills, No weakness, No fatigue ENT: No hearing loss, No sore throat Respiratory: No cough, No sputum, No shortness of breath, No dyspnea on exertion Cardiac: + chest pain, No PND Abdomen: + pain, No nausea, No vomiting, No diarrhea Neurologic: No memory loss, No weakness Psychiatric: No depression symptoms, No anxiety Objective Vital Signs Date Time Temp Pulse Resp B/P (MAP) Pulse Ox O2 Delivery O2 Flow Rate FiO2 06/04/17 07:56 37.1 63 18 137/66 (89) 93 Room Air 06/04/17 04:00 37.2 69 20 143/82 (102) 92 Room Air 06/04/17 04:00 92 Room Air 06/04/17 00:41 36.6 67 17 106/87 (93) 96 Room Air 06/04/17 00:00 96 Room Air 06/03/17 19:59 36.8 76 20 154/90 (111) 94 Room Air 06/03/17 16:45 36.9 79 18 122/90 94 Room Air 06/03/17 16:24 137/107 06/03/17 16:07 157/103 06/03/17 16:04 167/111 06/03/17 15:50 71 06/03/17 15:41 71 18 96 Room Air 06/03/17 13:53 72 18 97 06/03/17 13:31 134/92 06/03/17 13:23 73 19 95 06/03/17 13:01 163/99 06/03/17 12:53 72 16 94 06/03/17 12:31 153/100 06/03/17 12:23 68 14 95 4/6/18 12:20 95 Room Air 06/03/17 12:10 37.0 68 18 167/101 95 Room Air 06/03/17 12:07 167/101 06/03/17 12:06 69 Physical Exam General Appearance: WD/WN, + mild distress Eyes: normal inspection, sclerae normal Neck: supple, no JVD Respiratory/Chest: chest non-tender, lungs clear, normal breath sounds Cardiovascular: regular rate, rhythm, no murmur Abdomen: normal bowel sounds, non tender, soft Extremities: no pedal edema, no calf tenderness Neurologic/Psychiatric: alert, oriented x 3 Laboratory Results Last 24 Hours Test 06/03/17 11:50 06/03/17 12:27 06/03/17 15:44 06/03/17 18:00 White Blood Count 15.00 K/uL Red Blood Count 5.11 M/uL Hemoglobin 15.0 g/dL 14.4 g/dL 13.7 g/dL Hematocrit 43.1 % 41.5 % 39.7 % Mean Corpuscular Volume 84.3 fL Mean Corpuscular Hemoglobin 29.4 pg Mean Corpuscular Hemoglobin Concent 34.8 g/dl RDW Standard Deviation 41.6 fL RDW Coefficient of Variation 13.6 % Platelet Count 499 K/uL Mean Platelet Volume 8.9 fL Prothrombin Time 10.2 SECONDS Prothromb Time International Ratio 1.0 Activated Partial Thromboplast Time 25.7 SECONDS Partial Thromboplastin Ratio 1.0 Sodium Level 128 mmol/L Potassium Level 3.0 mmol/L Chloride Level 93 mmol/L Carbon Dioxide Level 21 mmol/L Anion Gap 14.0 mmol/L Blood Urea Nitrogen 7 mg/dl Creatinine 0.85 mg/dl Est Creatinine Clear Calc Drug Dose 62.1 ml/min Estimated GFR () 81.6 Estimated GFR (Non- 70.4 BUN/Creatinine Ratio 7.7 Random Glucose 147 mg/dl Calcium Level 9.5 mg/dl Total Bilirubin 0.5 mg/dl Aspartate Amino Transf (AST/SGOT) 22 U/L Alanine Aminotransferase (ALT/SGPT) 28 U/L Alkaline Phosphatase 151 U/L Total Creatine Kinase 30 U/L Creatine Kinase MB < 0.5 ng/ml Creatine Kinase MB Ratio Total Protein 9.3 gm/dl Albumin 4.3 gm/dl Globulin 5.0 gm/dl Albumin/Globulin Ratio 0.9 Bedside Troponin I < 0.030 ng/ml Lipase 82 U/L Troponin I < 0.015 ng/ml Test 06/03/17 23:57 06/04/17 00:07 06/04/17 06:04 06/04/17 06:24 Hemoglobin 12.9 g/dL 12.5 g/dL Hematocrit 37.6 % 36.5 % Troponin I < 0.015 ng/ml Urine Color DK YELLOW Urine Appearance CLOUDY Urine pH 5.0 Urine Specific [place] 1.028 Urine Protein 2+ Urine Glucose (UA) NEG Urine Ketones TRACE Urine Occult Blood 1+ Urine Nitrite NEG Urine Bilirubin NEG Urine Urobilinogen NEG Urine Leukocyte Esterase MODERATE Urine WBC (Auto) >30 /hpf Urine RBC (Auto) 0-4 /hpf Urine Hyaline Casts (Auto) 10-30 /lpf Urine Epithelial Cells (Auto) >30 /lpf Urine Bacteria (Auto) 4+ Urine Crystals CALCIUM OXALATE Urine Pathogenic Casts /lpf White Blood Count 10.16 K/uL Red Blood Count 4.27 M/uL Mean Corpuscular Volume 85.5 fL Mean Corpuscular Hemoglobin 29.3 pg Mean Corpuscular Hemoglobin Concent 34.2 g/dl RDW Standard Deviation 43.6 fL RDW Coefficient of Variation 14.0 % Platelet Count 348 K/uL Mean Platelet Volume 8.4 fL Sodium Level 133 mmol/L Potassium Level 3.5 mmol/L Chloride Level 103 mmol/L Carbon Dioxide Level 21 mmol/L Anion Gap 9.0 mmol/L Blood Urea Nitrogen 15 mg/dl Creatinine 0.96 mg/dl Est Creatinine Clear Calc Drug Dose 54.9 ml/min Estimated GFR () 70.4 Estimated GFR (Non- 60.8 BUN/Creatinine Ratio 16.0 Random Glucose 95 mg/dl Calcium Level 8.7 mg/dl Magnesium Level 2.1 mg/dl Triglycerides Level 223 mg/dl Cholesterol Level 256 mg/dl HDL Cholesterol 33 mg/dl LDL Cholesterol, Calculated 178 mg/dl VLDL Cholesterol, Calculated 45 mg/dl Cholesterol/HDL Ratio 7.8 Assessment and Plan Ms. Alexis is a 66 year old woman here for chest pain, had coffee ground emesis and history of surgery for Hiatal hermia ECG with T wave inversion that seems new she does give a history of pericarditis in the distant past associated with T wave changes, no concurrent chest pain -no abnormal trend of troponins - initially held ASA or other platelets given coffee ground emesis she does carry risk factors of htn, dm and family history Coffee ground emesis, abdominal pain, history of Hiatial hernia repair with wretching could be luana wies like issue consult GI, protonix IV bid allow clear liquids hyponatremia, hypokalemia, ivf Anxiety home Xanax, insomnia, using ambien Full code No chemoprophylaxis due to coffee ground emesis
--- NOTE | 2017-06-04 15:22 | Gastroenterology Progress Note ---
Progress Note Date of Service: Jun 04, 2017 Subjective Pt evaluation today including: conversation w/ patient, conversation w/ family (), physical exam, chart review, lab review, review of studies, review of inpatient medication list CC f/u nausea, coffee ground emesis, dysphagia HPI DR Laws saw patient in consult yesterday and told me about patient but do not see dictation in chart. Pt states she has coughing with eating but is not clear if she has bolus slowing throughout esophagus. She will get intermittent nausea also. Just prior to this admit had coffee ground emesis. Today she states mild abd pain. Tolerated clear liquids and no emesis. Small hard stool this am. Review of Systems Respiratory: + shortness of breath (she states weeks or months predating this admit) Cardiac: No chest pain Medications Current Inpatient Medications Medications (Trade) Dose Ordered Sig/Mary Route Start Time Stop Time Status Last Admin Dose Admin Potassium Chloride 40 meq/ Sodium Chloride 1,020 ml @ 120 mls/hr Q8H30M IV 06/03/17 16:45 07/03/17 16:44 06/04/17 09:57 120 MLS/HR Pantoprazole Sodium 40 mg/ Syringe 10 ml @ 5 mls/min DAILY@09,21 IV 06/03/17 21:00 07/03/17 20:59 06/04/17 08:23 5 MLS/MIN Alprazolam (Xanax Tab) 0.5 mg BID PRN PO 06/03/17 15:15 07/03/17 15:14 06/04/17 01:43 0.5 MG Fluoxetine HCl (Prozac Cap) 40 mg DAILY PO 06/04/17 09:00 07/04/17 08:59 06/04/17 08:23 40 MG Metoprolol Tartrate (Lopressor Tab) 50 mg QAM PO 06/04/17 09:00 07/04/17 08:59 06/04/17 08:23 50 MG Metoprolol Tartrate (Lopressor Tab) 100 mg HS PO 06/03/17 21:00 07/03/17 20:59 06/03/17 21:08 100 MG Ropinirole HCl (Requip Tab) 2 mg HS PO 06/03/17 21:00 07/03/17 20:59 06/03/17 21:07 2 MG Zolpidem Tartrate (Ambien Tab) 10 mg HS PRN PO 06/03/17 15:15 07/03/17 15:14 06/03/17 23:15 10 MG Albuterol (Ventolin Hfa Inhaler) 2 puffs Q4H PRN INH 06/03/17 16:15 07/03/17 16:14 Ondansetron HCl (Zofran Inj) 4 mg Q6H PRN IV 06/03/17 15:45 07/03/17 15:44 Al Hydroxide/Mg Hydroxide/ Lidocaine HCl/ Barcode Q4H PRN PO 06/03/17 16:45 07/03/17 16:44 Ondansetron HCl (Zofran Inj) 4 mg Q4H PRN IV 06/03/17 18:30 07/03/17 18:29 Objective Vital Signs Date Time Temp Pulse Resp B/P (MAP) Pulse Ox O2 Delivery O2 Flow Rate FiO2 06/04/17 12:00 Room Air 06/04/17 11:48 36.4 61 18 128/84 (99) 93 Room Air 06/04/17 08:00 Room Air 06/04/17 07:56 37.1 63 18 137/66 (89) 93 Room Air 06/04/17 04:00 37.2 69 20 143/82 (102) 92 Room Air 06/04/17 04:00 92 Room Air 06/04/17 00:41 36.6 67 17 106/87 (93) 96 Room Air 06/04/17 00:00 96 Room Air 06/03/17 19:59 36.8 76 20 154/90 (111) 94 Room Air 06/03/17 16:45 36.9 79 18 122/90 94 Room Air 06/03/17 16:24 137/107 06/03/17 16:07 157/103 06/03/17 16:04 167/111 06/03/17 15:50 71 06/03/17 15:41 71 18 96 Room Air Physical Exam General Appearance: WD/WN, no apparent distress Respiratory/Chest: lungs clear, no respiratory distress Cardiovascular: regular rate, rhythm, no murmur Abdomen: normal bowel sounds, non tender, soft, no organomegaly, no pulsatile mass Neurologic/Psych: alert, normal mood/affect, oriented x 3 Skin: normal color Laboratory Results Last 24 Hours Test 06/03/17 15:44 06/03/17 18:00 06/03/17 23:57 06/04/17 00:07 Hemoglobin 14.4 g/dL 13.7 g/dL 12.9 g/dL Hematocrit 41.5 % 39.7 % 37.6 % Lipase 82 U/L Troponin I < 0.015 ng/ml < 0.015 ng/ml Test 06/04/17 06:04 06/04/17 06:24 Urine Color DK YELLOW Urine Appearance CLOUDY Urine pH 5.0 Urine Specific [place] 1.028 Urine Protein 2+ Urine Glucose (UA) NEG Urine Ketones TRACE Urine Occult Blood 1+ Urine Nitrite NEG Urine Bilirubin NEG Urine Urobilinogen NEG Urine Leukocyte Esterase MODERATE Urine WBC (Auto) >30 /hpf Urine RBC (Auto) 0-4 /hpf Urine Hyaline Casts (Auto) 10-30 /lpf Urine Epithelial Cells (Auto) >30 /lpf Urine Bacteria (Auto) 4+ Urine Crystals CALCIUM OXALATE Urine Pathogenic Casts /lpf White Blood Count 10.16 K/uL Red Blood Count 4.27 M/uL Hemoglobin 12.5 g/dL Hematocrit 36.5 % Mean Corpuscular Volume 85.5 fL Mean Corpuscular Hemoglobin 29.3 pg Mean Corpuscular Hemoglobin Concent 34.2 g/dl RDW Standard Deviation 43.6 fL RDW Coefficient of Variation 14.0 % Platelet Count 348 K/uL Mean Platelet Volume 8.4 fL Sodium Level 133 mmol/L Potassium Level 3.5 mmol/L Chloride Level 103 mmol/L Carbon Dioxide Level 21 mmol/L Anion Gap 9.0 mmol/L Blood Urea Nitrogen 15 mg/dl Creatinine 0.96 mg/dl Est Creatinine Clear Calc Drug Dose 54.9 ml/min Estimated GFR () 70.4 Estimated GFR (Non- 60.8 BUN/Creatinine Ratio 16.0 Random Glucose 95 mg/dl Estimated Average Glucose 108 mg/dl Hemoglobin A1c 5.4 % Calcium Level 8.7 mg/dl Magnesium Level 2.1 mg/dl Triglycerides Level 223 mg/dl Cholesterol Level 256 mg/dl HDL Cholesterol 33 mg/dl LDL Cholesterol, Calculated 178 mg/dl VLDL Cholesterol, Calculated 45 mg/dl Cholesterol/HDL Ratio 7.8 Assessment and Plan nausea coffee ground emesis dysphagia s/p Hank fundoplication Hgb dropped but no melena or red stools or ongoing hematesis to suggest active bleeding. Continue ppi bid. Coughing with eating suggests oropharygeal dysphagia so recommend elective videofluoro swallow study with speech path. For workup for possible esophageal dysphagia and coffee ground emesis recommend EGD if cleared from cardio/pulmonary standpoint or barium swallow/UGI. If tolerates clears well today could advance to soft tomorrow.
--- NOTE | 2017-06-04 15:45 | ECHOCARDIOGRAM REPORT ---
*NOTICE TO RECEIVING REPUBLICAN AGENCY This information is strictly Confidential and protected under [place] law. [place] law prohibits you from making any further disclosure of this information unless further disclosure is expressly permitted by the written consent of the person to whom it pertains or is authorized by law. A general authorization for the release of medical or other information is not sufficient for this purpose. Hospital accepts no responsibility if the information is made available to any other person, INCLUDING THE PATIENT. Interpretation Summary * Name: MIGUEL ROSALES Study Date: 06/04/2017 09:06 AM BP: 137/66 mmHg * Patient Location: .2E\S\E212\S\1 HR: 49 * : 1950 (M/d/yyyy) Gender: Female Height: 61 in * Age: 66 yrs Ethnicity: [place] Weight: 183 lb * Ordering Physician: Morales Brand * Referring Physician: Self, Referred * Performed By: Obie Mohamud RDCS * * Reason For Study: Chest pain * BSA: 1.8 m2 * -- Conclusions -- * The left ventricle is normal in size. * Left ventricular systolic function is normal. * Ejection Fraction = 60-65%. * The left ventricular wall motion is normal. * There is moderate concentric left ventricular hypertrophy. * Grade I diastolic dysfunction, (abnormal relaxation pattern). * There is mild mitral regurgitation. * The left atrium is mildly dilated. * There is mild tricuspid regurgitation. * Right ventricular systolic pressure is normal. Procedure Details * A complete two-dimensional transthoracic echocardiogram was performed (2D, M-mode, Doppler and color flow Doppler). * The study was technically adequate. Left Ventricle * The left ventricle is normal in size. * There is moderate concentric left ventricular hypertrophy. * Left ventricular systolic function is normal. * Ejection Fraction = 60-65%. * The left ventricular wall motion is normal. Right Ventricle * The right ventricle is normal in size and function. Atria * The left atrium is mildly dilated. * Right atrial size is normal. * The interatrial septum is intact with no evidence for an atrial septal defect. Mitral Valve * There is mild mitral annular calcification. * There is mild mitral regurgitation. Tricuspid Valve * The tricuspid valve is normal in structure and function. * There is mild tricuspid regurgitation. * Right ventricular systolic pressure is normal. Aortic Valve * The aortic valve is trileaflet. * The aortic valve opens well. * Aortic valve sclerosis mild, without significant aortic valvular stenosis. * No hemodynamically significant valvular aortic stenosis. * There is no significant aortic regurgitation. Pulmonic Valve * The pulmonic valve is not well seen, but is grossly normal. * There is no significant pulmonary regurgitation. Great Vessels * Ascending aorta of normal dimension * The aortic root is normal size. * No obvious dissection could be visualized. * The pulmonary artery is normal size. Pericardium/Pleural * There is no pericardial effusion. Great Vessels * Normal inferior vena cava diameter and respiratory variation suggests normal central venous pressure. Left Ventricular Diastolic Function * Grade I diastolic dysfunction, (abnormal relaxation pattern). MMode 2D Measurements and Calculations IVSd 1.3 cm IVSs 1.7 cm LVIDd 5.1 cm LVIDs 3.3 cm LVPWd 1.3 cm LVPWs 1.7 cm IVS/LVPW 1.0 FS 35.4 % EDV(Teich) 123.7 ml ESV(Teich) 44.0 ml EF(Teich) 64.4 % EDV(cubed) 132.5 ml ESV(cubed) 35.8 ml EF(cubed) 73.0 % % IVS thick 29.4 % % LVPW thick 31.9 % LV mass(C)d 266.7 grams LV mass(C)dI 146.6 grams/m\S\2 LV mass(C)s 217.1 grams LV mass(C)sI 119.3 grams/m\S\2 SV(Teich) 79.7 ml SI(Teich) 43.8 ml/m\S\2 SV(cubed) 96.7 ml SI(cubed) 53.2 ml/m\S\2 EPSS 0.78 cm Ao root diam 2.9 cm Ao root area 6.6 cm\S\2 ACS 1.7 cm LA dimension 4.6 cm asc Aorta Diam 3.8 cm LA/Ao 1.6 LVOT diam 2.1 cm LVOT area 3.5 cm\S\2 LVAd ap4 28.7 cm\S\2 LVLd ap4 7.8 cm EDV(MOD-sp4) 86.7 ml EDV(sp4-el) 89.9 ml LVAs ap4 15.7 cm\S\2 LVLs ap4 6.2 cm ESV(MOD-sp4) 33.5 ml ESV(sp4-el) 33.8 ml EF(MOD-sp4) 61.4 % EF(sp4-el) 62.5 % LVAd ap2 25.5 cm\S\2 LVLd ap2 7.7 cm EDV(MOD-sp2) 69.1 ml EDV(sp2-el) 72.0 ml LVAs ap2 13.9 cm\S\2 LVLs ap2 6.3 cm ESV(MOD-sp2) 24.9 ml ESV(sp2-el) 25.7 ml EF(MOD-sp2) 64.0 % EF(sp2-el) 64.3 % LVLd %diff -1.28 % EDV(MOD-bp) 78.2 ml LVLs %diff 1.9 % ESV(MOD-bp) 28.6 ml EF(MOD-bp) 63.4 % SV(MOD-sp4) 53.2 ml SI(MOD-sp4) 29.3 ml/m\S\2 SV(MOD-sp2) 44.2 ml SI(MOD-sp2) 24.3 ml/m\S\2 SV(MOD-bp) 49.6 ml SI(MOD-bp) 27.3 ml/m\S\2 SV(sp4-el) 56.2 ml SI(sp4-el) 30.9 ml/m\S\2 SV(sp2-el) 46.3 ml SI(sp2-el) 25.4 ml/m\S\2 Doppler Measurements and Calculations MV E max raymond 67.0 cm/sec MV A max raymond 96.2 cm/sec MV E/A 0.70 MV dec time 0.25 sec Ao V2 max 155.3 cm/sec Ao max PG 9.6 mmHg Ao max PG (full) 6.5 mmHg SMILEY(V,A) 2.0 cm\S\2 SMILEY(V,D) 2.0 cm\S\2 LV V1 max PG 3.2 mmHg LV V1 max 89.3 cm/sec PA V2 max 158.4 cm/sec PA max PG 10.0 mmHg PA acc slope 582.4 cm/sec\S\2 PA acc time 0.12 sec TR max raymond 230.1 cm/sec PA pr(Accel) 24.8 mmHg
[2017-06-04] MEDS: ZOLPIDEM TARTRATE 10 MG TAB PO PRN (22:13)
[2017-06-04] MEDS: ROPINIROLE HCL 1 MG TAB PO SCH (22:14)
[2017-06-05] VITALS (7 sets, daily range): BP systolic 142–166; BP diastolic 79–96; PULSE 53–62; TEMP 36.4–37.1; O2SAT 95–96
[2017-06-05] MEDS: POTASSIUM CHLORIDE INJ 40 MEQ in SODIUM CHLORIDE 0.9% 1000ML 1,000 ML IV SCH ×2 (02:36→11:15)
[2017-06-05 07:44] LABS: BASO % 0.7 %; BASO ABS # 0.05 K/uL (0-0.2); EOS % 2.4 %; EOS ABS # 0.18 K/uL (0-0.5); HEMATOCRIT 35.4 % (37-47); HEMOGLOBIN 11.7 g/dL (12.0-16.0); IG# 0.02 K/uL (0.00-0.02); LYMPH % 27.9 %; MEAN CELL VOLUME 86.8 fL (80-100); MEAN CORPUSCULAR HEMOGLOBIN 28.7 pg (25-34); MEAN CORPUSCULAR HGB CONC 33.1 g/dl (32-36); MEAN PLATELET VOLUME 8.7 fL (7.4-10.4); MONO % 10.3 %; MONO ABS # 0.78 K/uL (0.11-0.59); NEUT % 58.4 %; NEUT ABS # 4.41 K/uL (1.4-6.5); PLATELET COUNT 324 K/uL (130-400); RED CELL DISTRIBUTION WIDTH SD 44.3 fL (36.4-46.3); WHITE BLOOD COUNT 7.54 K/uL (4.8-10.8)
[2017-06-05] MEDS: METOPROLOL TARTRATE 50 MG TAB PO SCH ×2 (07:51→23:20)
[2017-06-05] MEDS: FLUOXETINE HCL 20 MG CAP PO SCH (07:52)
[2017-06-05] MEDS: PANTOprazole INJ 40 MG in SYRINGE 0 ML IV SCH ×2 (07:52→21:09)
[2017-06-05 08:26] LABS: CALCIUM 8.4 mg/dl (8.5-10.1); CREATININE 0.61 mg/dl (0.60-1.20); POTASSIUM 3.8 mmol/L (3.5-5.1); TOTAL PROTEIN 6.3 gm/dl (6.4-8.2)
--- NOTE | 2017-06-05 08:31 | Progress Note ---
Subjective Date of Service: Jun 05, 2017. Subjective pt remains with difficulty swallowing and dropping hgb but has not had any dark bowel movements, she does not have exertional chest pain but does have some exertional dyspnea Problem List Medical Problems: (1) Acute electrocardiogram changes Status: Acute (2) Hypokalemia Status: Acute (3) Hyponatremia Status: Acute (4) Substernal chest pain Status: Acute Review of Systems Constitutional: No fever, No chills, No weakness, No fatigue Respiratory: + dyspnea on exertion, No cough, No shortness of breath Cardiac: No chest pain, No edema Abdomen: + problem reported (anorexia), No pain, No nausea, No vomiting, No diarrhea Female : + urinary frequency, No dysuria Objective Vital Signs Date Time Temp Pulse Resp B/P (MAP) Pulse Ox O2 Delivery O2 Flow Rate FiO2 06/05/17 07:58 36.4 53 18 156/88 (110) 95 Room Air 06/05/17 04:23 36.5 62 19 142/96 (111) 95 Room Air 06/05/17 04:00 Room Air 06/05/17 00:16 37.0 60 20 96 Room Air 06/05/17 00:00 96 Room Air 06/04/17 23:58 156/82 (106) 06/04/17 20:39 52 160/88 (112) 06/04/17 20:00 95 Room Air 06/04/17 16:00 Room Air 06/04/17 15:56 37.1 59 18 147/91 (109) 94 Room Air 06/04/17 12:00 Room Air 06/04/17 11:48 36.4 61 18 128/84 (99) 93 Room Air Physical Exam General Appearance: WD/WN, + mild distress Eyes: normal inspection, sclerae normal Respiratory/Chest: chest non-tender, lungs clear, normal breath sounds Cardiovascular: regular rate, rhythm, no murmur Abdomen: normal bowel sounds, non tender, soft Extremities: no pedal edema, no calf tenderness Neurologic/Psychiatric: no motor/sensory deficits, oriented x 3 Laboratory Results Last 24 Hours Test 06/05/17 06:51 White Blood Count 7.54 K/uL Red Blood Count 4.08 M/uL Hemoglobin 11.7 g/dL Hematocrit 35.4 % Mean Corpuscular Volume 86.8 fL Mean Corpuscular Hemoglobin 28.7 pg Mean Corpuscular Hemoglobin Concent 33.1 g/dl Platelet Count 324 K/uL Mean Platelet Volume 8.7 fL Neutrophils (%) (Auto) 58.4 % Lymphocytes (%) (Auto) 27.9 % Monocytes (%) (Auto) 10.3 % Eosinophils (%) (Auto) 2.4 % Basophils (%) (Auto) 0.7 % Neutrophils # (Auto) 4.41 K/uL Lymphocytes # (Auto) 2.10 K/uL Monocytes # (Auto) 0.78 K/uL Eosinophils # (Auto) 0.18 K/uL Basophils # (Auto) 0.05 K/uL RDW Standard Deviation 44.3 fL RDW Coefficient of Variation 14.0 % Immature Granulocyte % (Auto) 0.3 % Immature Granulocyte # (Auto) 0.02 K/uL Sodium Level 134 mmol/L Potassium Level 3.8 mmol/L Chloride Level 104 mmol/L Carbon Dioxide Level 21 mmol/L Anion Gap 10.0 mmol/L Blood Urea Nitrogen 7 mg/dl Creatinine 0.61 mg/dl Est Creatinine Clear Calc Drug Dose 86.4 ml/min Estimated GFR () 108.0 Estimated GFR (Non- 93.1 BUN/Creatinine Ratio 11.9 Random Glucose 80 mg/dl Calcium Level 8.4 mg/dl Total Bilirubin 0.5 mg/dl Aspartate Amino Transf (AST/SGOT) 14 U/L Alanine Aminotransferase (ALT/SGPT) 17 U/L Alkaline Phosphatase 98 U/L Total Protein 6.3 gm/dl Albumin 3.0 gm/dl Globulin 3.3 gm/dl Albumin/Globulin Ratio 0.9 Assessment and Plan Ms. Alexis is a 66 year old woman here for chest pain, had coffee ground emesis and history of surgery for Hiatal hermia ECG with T wave inversion she does give a history of previous pericarditis in the distant past associated with T wave changes, no concurrent chest pain -no abnormal trend of troponins - initially held ASA or other platelets given coffee ground emesis she does carry risk factors of htn, dm and family history, given the desire for possible EGD that would require anesthesia will have cardiology opinion but given the lack of subjective symptoms doubt that the pt has unstable angina or ACS Coffee ground emesis, abdominal pain, history of Hiatial hernia repair with wretching could be luana wies like issue consult GI Dr Sidhu, recommends radiology study, will order barium swallow and maybe EGD if cardiac issues are cleared, continue protonix IV bid allow clear liquids hyponatremia, hypokalemia, ivf replete Anxiety home Xanax, insomnia, using ambien gram negative uti poa, awaiting sensitivities and start cipro Full code No chemoprophylaxis due to coffee ground emesis
[2017-06-05] MEDS ORDERED: NURSING VERBAL MED ORDER ONE (11:30)
[2017-06-05] MEDS: CIPROFLOXACIN / D5W 400 MG in PREMIXED IN D5W 200 ML IV SCH ×2 (14:43→23:20)
--- NOTE | 2017-06-05 15:20 | Gastroenterology Progress Note ---
Progress Note Date of Service: Jun 05, 2017 Subjective Pt evaluation today including: conversation w/ patient, conversation w/ family (), physical exam, chart review, lab review, review of studies, review of inpatient medication list cc f/u dysphagia, coffee ground emesis HPI Some nausea post abx for UTI. Had in last 24 hours good bm and states was yellow in color and not black nor bloody. No abd pain. Review of Systems Respiratory: + shortness of breath (improved) Cardiac: + chest pain (off and on) Medications Current Inpatient Medications Medications (Trade) Dose Ordered Sig/Mary Route Start Time Stop Time Status Last Admin Dose Admin Pantoprazole Sodium 40 mg/ Syringe 10 ml @ 5 mls/min DAILY@ IV 06/03/17 21:00 07/03/17 20:59 06/05/17 07:52 5 MLS/MIN Alprazolam (Xanax Tab) 0.5 mg BID PRN PO 06/03/17 15:15 07/03/17 15:14 06/04/17 23:57 0.5 MG Fluoxetine HCl (Prozac Cap) 40 mg DAILY PO 06/04/17 09:00 07/04/17 08:59 06/05/17 07:52 40 MG Metoprolol Tartrate (Lopressor Tab) 50 mg QAM PO 06/04/17 09:00 07/04/17 08:59 06/05/17 07:51 50 MG Metoprolol Tartrate (Lopressor Tab) 100 mg HS PO 06/03/17 21:00 07/03/17 20:59 06/03/17 21:08 100 MG Ropinirole HCl (Requip Tab) 2 mg HS PO 06/03/17 21:00 07/03/17 20:59 06/04/17 22:14 2 MG Zolpidem Tartrate (Ambien Tab) 10 mg HS PRN PO 06/03/17 15:15 07/03/17 15:14 06/04/17 22:13 10 MG Albuterol (Ventolin Hfa Inhaler) 2 puffs Q4H PRN INH 06/03/17 16:15 07/03/17 16:14 Ondansetron HCl (Zofran Inj) 4 mg Q6H PRN IV 06/03/17 15:45 07/03/17 15:44 06/05/17 14:47 4 MG Al Hydroxide/Mg Hydroxide/ Lidocaine HCl/ Barcode Q4H PRN PO 06/03/17 16:45 07/03/17 16:44 Ondansetron HCl (Zofran Inj) 4 mg Q4H PRN IV 06/03/17 18:30 07/03/17 18:29 Ciprofloxacin/ Dextrose 400 mg/ Prmx 200 ml @ 100 mls/hr Q12 IV 06/05/17 15:00 06/10/17 14:59 06/05/17 14:43 100 MLS/HR Objective Vital Signs Date Time Temp Pulse Resp B/P (MAP) Pulse Ox O2 Delivery O2 Flow Rate FiO2 06/05/17 12:00 Room Air 06/05/17 11:46 37.1 57 18 165/79 (107) 96 Room Air 06/05/17 08:00 Room Air 06/05/17 07:58 36.4 53 18 156/88 (110) 95 Room Air 06/05/17 04:23 36.5 62 19 142/96 (111) 95 Room Air 06/05/17 04:00 Room Air 06/05/17 00:16 37.0 60 20 96 Room Air 06/05/17 00:00 96 Room Air 06/04/17 23:58 156/82 (106) 06/04/17 20:39 52 160/88 (112) 06/04/17 20:00 95 Room Air 06/04/17 16:00 Room Air 06/04/17 15:56 37.1 59 18 147/91 (109) 94 Room Air Physical Exam General Appearance: WD/WN, no apparent distress Respiratory/Chest: lungs clear, no respiratory distress Cardiovascular: no edema, no murmur Abdomen: normal bowel sounds, non tender, soft, no organomegaly, no pulsatile mass Neurologic/Psych: alert, normal mood/affect, oriented x 3 Skin: normal color Laboratory Results Last 24 Hours Test 06/05/17 06:51 White Blood Count 7.54 K/uL Red Blood Count 4.08 M/uL Hemoglobin 11.7 g/dL Hematocrit 35.4 % Mean Corpuscular Volume 86.8 fL Mean Corpuscular Hemoglobin 28.7 pg Mean Corpuscular Hemoglobin Concent 33.1 g/dl Platelet Count 324 K/uL Mean Platelet Volume 8.7 fL Neutrophils (%) (Auto) 58.4 % Lymphocytes (%) (Auto) 27.9 % Monocytes (%) (Auto) 10.3 % Eosinophils (%) (Auto) 2.4 % Basophils (%) (Auto) 0.7 % Neutrophils # (Auto) 4.41 K/uL Lymphocytes # (Auto) 2.10 K/uL Monocytes # (Auto) 0.78 K/uL Eosinophils # (Auto) 0.18 K/uL Basophils # (Auto) 0.05 K/uL RDW Standard Deviation 44.3 fL RDW Coefficient of Variation 14.0 % Immature Granulocyte % (Auto) 0.3 % Immature Granulocyte # (Auto) 0.02 K/uL Sodium Level 134 mmol/L Potassium Level 3.8 mmol/L Chloride Level 104 mmol/L Carbon Dioxide Level 21 mmol/L Anion Gap 10.0 mmol/L Blood Urea Nitrogen 7 mg/dl Creatinine 0.61 mg/dl Est Creatinine Clear Calc Drug Dose 86.4 ml/min Estimated GFR () 108.0 Estimated GFR (Non- 93.1 BUN/Creatinine Ratio 11.9 Random Glucose 80 mg/dl Calcium Level 8.4 mg/dl Total Bilirubin 0.5 mg/dl Aspartate Amino Transf (AST/SGOT) 14 U/L Alanine Aminotransferase (ALT/SGPT) 17 U/L Alkaline Phosphatase 98 U/L Total Protein 6.3 gm/dl Albumin 3.0 gm/dl Globulin 3.3 gm/dl Albumin/Globulin Ratio 0.9 Assessment and Plan nausea--off and on coffee ground emesis--resolved dysphagia--oropharyngeal and/or esophageal s/p Hank fundoplication anemia--drop in Hgb but no gross GI bleeding noted so suspect diluational Discussed with DR Brand and he is ordering cardiology consult tomorrow. In meantim recommend videofluoro swallow study and barium swallow. Elective EGD post cardiac clearance. I am going off service tomorrow 06/05/[address] Keen is assuming GI care then.
[2017-06-05] MEDS: ZOLPIDEM TARTRATE 10 MG TAB PO PRN (21:09)
[2017-06-05] MEDS: ROPINIROLE HCL 1 MG TAB PO SCH (21:09)
[2017-06-05] MEDS: ALPRAZOLAM 0.5 MG TAB PO PRN (23:20)
[2017-06-06] VITALS: BP 167/88; PULSE 60; TEMP 37; O2SAT 94
[2017-06-06 03:59] VITALS: BP 165/76; PULSE 58; TEMP 37; O2SAT 95
[2017-06-06 06:34] LABS: BASO % 0.5 %; BASO ABS # 0.04 K/uL (0-0.2); EOS % 2.6 %; EOS ABS # 0.19 K/uL (0-0.5); HEMATOCRIT 35.3 % (37-47); HEMOGLOBIN 11.9 g/dL (12.0-16.0); IG# 0.01 K/uL (0.00-0.02); LYMPH % 25.2 %; LYMPH ABS # 1.87 K/uL (1.2-3.4); MEAN CELL VOLUME 85.7 fL (80-100); MEAN CORPUSCULAR HEMOGLOBIN 28.9 pg (25-34); MEAN CORPUSCULAR HGB CONC 33.7 g/dl (32-36); MEAN PLATELET VOLUME 8.3 fL (7.4-10.4); MONO ABS # 0.67 K/uL (0.11-0.59); NEUT % 62.6 %; NEUT ABS # 4.64 K/uL (1.4-6.5); PLATELET COUNT 310 K/uL (130-400); RED CELL DISTRIBUTION WIDTH CV 13.8 % (11.5-14.5); RED CELL DISTRIBUTION WIDTH SD 42.9 fL (36.4-46.3); WHITE BLOOD COUNT 7.42 K/uL (4.8-10.8)
[2017-06-06 07:14] LABS: ALBUMIN 3.2 gm/dl (3.4-5.0); CALCIUM 8.6 mg/dl (8.5-10.1); CREATININE 0.75 mg/dl (0.60-1.20); POTASSIUM 3.3 mmol/L (3.5-5.1)
[2017-06-06 07:17] LABS: TOTAL PROTEIN 6.5 gm/dl (6.4-8.2)
[2017-06-06] MEDS: PANTOprazole INJ 40 MG in SYRINGE 0 ML IV SCH ×2 (07:36→20:58)
[2017-06-06] MEDS: CIPROFLOXACIN / D5W 400 MG in PREMIXED IN D5W 200 ML IV SCH (07:36)
[2017-06-06] MEDS: METOPROLOL TARTRATE 50 MG TAB PO SCH ×2 (07:37→20:58)
[2017-06-06] MEDS: FLUOXETINE HCL 20 MG CAP PO SCH (07:38)
--- NOTE | 2017-06-06 07:56 | GASTROINTESTINAL CONSULTATION ---
DATE OF CONSULTATION: 06/03/2017 CHIEF COMPLAINT: Chest pain, coffee-ground emesis, abdominal bloating, intermittent dysphagia. HISTORY OF PRESENT ILLNESS: Mrs. Alexis is a 66-year-old white female who presented to the Emergency Room today. Initially, consult was placed to [facility], although the patient had been seen by Dr. Keen for procedures in the past and she has had surgery at for a large hiatal hernia reduction and Hank fundoplication. The patient was experiencing approximately 1 day of nausea, vomiting, weakness and coffee-ground material that happened after some vomiting had occurred. The patient denies any melena or bright red blood per rectum. She denies the use currently of any NSAIDs, aspirin, and does not report a history of peptic ulcer disease. She did report that at times over the past couple weeks, she would have a white mucus type material that she would vomit or bring up as well as a sense of increased difficulty handling foods with bloating, intermittent solid dysphagia, although liquids can occasionally bother the patient. There is also an aspect of breathing disturbances that she has had for some time. Chronic cough has been present for many years of uncertain etiology. The patient was admitted for subsequent workup. PAST MEDICAL HISTORY: Extensive including anemia, anxiety disorder, diabetes, hiatal hernia, colonic diverticulosis, GERD with Hank fundoplication, history of gastric volvulus, iron deficiency anemia, obesity, restless leg syndrome. SOCIAL HISTORY: The patient denies tobacco use, only occasionally drinks alcoholic beverages. Is and lives with significant other, is currently retired. FAMILY HISTORY: Significant for mother and father with COPD and heart conditions but there is no history of gastrointestinal malignancy or chronic gastrointestinal disorders according to the patient. ALLERGIES: INCLUDE LATEX, NITROGLYCERIN, OPIOIDS, POTASSIUM CHLORIDE SALTS, ALTHOUGH THIS MAY BE PAIN DURING INSTALLATION AT THE IV SITE. HOME MEDICATIONS: Include Prozac, Lopressor and Requip 2 mg at bedtime. She also takes p.r.n. albuterol, Xanax and Ambien. REVIEW OF SYSTEMS: Otherwise noncontributory based on 13-point exam except for mentioned above. She did have ovary removed but her uterus is intact and had an appendectomy as well. This is in addition to the gastric surgery noted above. PHYSICAL EXAMINATION: VITAL SIGNS: On admission, heart rate 69, afebrile at 37.1, blood pressure 167/101, 95% on room air, respirations 18, heart rate 68. GENERAL: The patient is awake, alert and oriented x3. HEENT: Sclerae are somewhat pale in color, conjunctivae moist. Oral mucosa moist. HEART: Normal S1, S2. LUNGS: Overall clear to auscultation without rales, rhonchi or wheezes. I do not appreciate focal tenderness with palpation along the breast bone. NECK: Normal range of motion. There is no evidence of thyromegaly or supraclavicular adenopathy. ABDOMEN: Soft, obese, currently nontender, without rebound or guarding. There are positive bowel sounds. EXTREMITIES: Show trace edema bilaterally. RECTAL: Deferred. LABORATORY STUDIES: Include at noon white count 15. Hemoglobin has slowly trended downward through 1800 hours tonight from 14.4 to 13.7. Platelets 499,000. Potassium is low at 3.0, sodium is low at 128. BUN and creatinine are 7 and 0.85. Total bilirubin 0.5, AST 22, ALT 28, alkaline phosphatase 151, CK total 30 with MB less than 0.5. Troponins less than 0.30. Lipase 82, albumin 4.3. INR is normal at 1.0. CURRENT HOSPITAL MEDICATIONS: Include fluoxetine, metoprolol, pantoprazole 40 mg daily IV, Requip, Zofran, albuterol inhaler p.r.n., Xanax, Ambien. Imaging studies showed a chest x-ray that was unremarkable for acute disease. I did review prior EGD from Dr. Keen in February and April of 2015. Apparently, large hiatal hernias were identified and Bravos were placed, although according to the patient, the first one had dislodged and a second one was placed. She subsequently underwent surgery at [facility] for her large hiatal hernia and fundoplication. IMPRESSION AND PLAN: Mrs. Alexis is a 66-year-old white female with chest pain, report of coffee-ground emesis on a single occasion, overall stable hemoglobin, intermittent chest discomfort with dysphagia to solids greater than liquids, without weight loss. There is a sense of bloating. There is also a component of white mucus that she seems to vomit up or regurgitate. There is also chronic cough involved as well as shortness of breath and dyspnea. She is not aware of any prior pulmonary status. I made the following recommendations: Certainly, her symptoms may be related to reflux, a small Sendy-Metz tear without ongoing bleeding reported. It is possible that the surgical repair has moved or shifted such that some of the hiatal hernia has returned. I believe it is reasonable to perform a barium swallow with a barium tablet and we will attempt to arrange this for the weekend. If there is any active bleeding that occurs, upper endoscopy may be necessary over the weekend. At some point, from her breathing standpoint, it may be reasonable for the patient to have an evaluation by pulmonary medicine with PFTs and it is unclear if some of her breathing may be related to chronic reflux. All questions answered for the patient and her . Dr. Sidhu will be covering the service over the weekend. Please note this dictation was performed on the day of the consult - 06/03/2017 but was held in pending status by [employer]/trans[facility] until Tuesday06/06/17 and not visible as draft status in EMR. SUKUMAR
[2017-06-06 08:00] VITALS: BP 167/80; PULSE 56; TEMP 37.1; O2SAT 94
--- NOTE | 2017-06-06 09:37 | Cardiology Consultation ---
Cardiology Consultation Date of Consultation: Jun 06, 2017. Requesting Physician: Dr. Gonzalez Reason for Consultation: Chest pain Pt evaluation today including: conversation w/ patient, physical exam, lab review, review of studies, review of inpatient medication list History of Present Illness This is a 66-year-old woman who has a history of a chest pain syndrome, but no known coronary artery disease. She presented with coffee-ground emesis. She also has a long history of chest discomfort as well as other symptoms. She describes having chest discomfort associated with shortness of breath with exertion, she tells me she had stress testing done at [facility] several years ago before esophageal surgery and does not know for sure the results but thinks there were no abnormalities (at least it was not recommended that she have further treatment or evaluation). She told me that she has severe shortness of breath at home, she cannot get up and walk across the room to turn on the television without having shortness of breath, she tells me that that occurred over the last several months although she also told me that it occurred 2 years ago when she was at [facility] but that it was related to her surgical need at that time. She describes substernal tightness with exertion, she describes severe chest discomfort on admission at the time when she was having a cough, vomiting and shortness of breath. Evaluation here has included echocardiography which shows normal left ventricular size and function as well as electrocardiography where she does have some inferior and anterolateral T-wave abnormalities which are nonspecific. Of note, we have electrocardiograms going back to [address]-T abnormalities are present however anterior T-wave abnormalities appear to be new. Her cardiac enzymes were negative this admission despite prolonged chest discomfort. Family History FH: cancer Social History Smoking Status: Never Smoker History of Alcohol Use: No Review of Systems Constitutional: No fever, No weight loss, No weakness Respiratory: + see HPI, + shortness of breath, + dyspnea on exertion Cardiac: + see HPI, + chest pain Abdomen: + vomiting, + GI bleeding (Hematemesis reported), No pain, No nausea, No diarrhea Female : No problem reported Neurologic: No paralysis, No weakness, No numbness/tingling, No balance problems Heme: No abnormal bleeding/bruising, No clotting problems Endo: No fatigue Skin: No problem reported All Other Systems: Reviewed and Negative Allergies Coded Allergies: Latex1 -Allergic Contact Dermititis (Verified Allergy, Mild, RASH, 06/03/17) Nitroglycerin (Verified Allergy, Unknown, ITCHY AND HEADACHE AND VOMITTING , 06/03/17) Opioid Analgesics (Verified Allergy, Unknown, "VERY SENSITIVE" N/V, 06/03/17 ) Potassium Chloride (Verified Allergy, Unknown, HAD TO HAVE A CATH, 06/03/17) Medications Current Inpatient Medications Medications (Trade) Dose Ordered Sig/Mary Route Start Time Stop Time Status Last Admin Dose Admin Pantoprazole Sodium 40 mg/ Syringe 10 ml @ 5 mls/min DAILY@, IV 06/03/17 21:00 07/03/17 20:59 06/06/17 07:36 5 MLS/MIN Alprazolam (Xanax Tab) 0.5 mg BID PRN PO 06/03/17 15:15 07/03/17 15:14 06/05/17 23:20 0.5 MG Fluoxetine HCl (Prozac Cap) 40 mg DAILY PO 06/04/17 09:00 07/04/17 08:59 06/06/17 07:38 40 MG Metoprolol Tartrate (Lopressor Tab) 50 mg QAM PO 06/04/17 09:00 07/04/17 08:59 06/06/17 07:37 50 MG Metoprolol Tartrate (Lopressor Tab) 100 mg HS PO 06/03/17 21:00 07/03/17 20:59 06/05/17 23:20 100 MG Ropinirole HCl (Requip Tab) 2 mg HS PO 06/03/17 21:00 07/03/17 20:59 06/05/17 21:09 2 MG Zolpidem Tartrate (Ambien Tab) 10 mg HS PRN PO 06/03/17 15:15 07/03/17 15:14 06/05/17 21:09 10 MG Albuterol (Ventolin Hfa Inhaler) 2 puffs Q4H PRN INH 06/03/17 16:15 07/03/17 16:14 Ondansetron HCl (Zofran Inj) 4 mg Q6H PRN IV 06/03/17 15:45 07/03/17 15:44 06/05/17 14:47 4 MG Al Hydroxide/Mg Hydroxide/ Lidocaine HCl/ Barcode Q4H PRN PO 06/03/17 16:45 07/03/17 16:44 Ondansetron HCl (Zofran Inj) 4 mg Q4H PRN IV 06/03/17 18:30 07/03/17 18:29 Ciprofloxacin/ Dextrose 400 mg/ Prmx 200 ml @ 100 mls/hr Q12 IV 06/05/17 15:00 06/10/17 14:59 06/06/17 07:36 100 MLS/HR Physical Exam Vital Signs Past 12 Hours Date Time Temp Pulse Resp B/P (MAP) Pulse Ox O2 Delivery O2 Flow Rate FiO2 06/06/17 08:00 37.1 56 16 167/80 (109) 94 Room Air 06/06/17 07:30 Room Air 06/06/17 04:00 Room Air 95.0 06/06/17 03:59 37.0 58 16 165/76 (105) 95 Room Air 06/06/17 00:00 37.0 60 167/88 (114) 94 Room Air 06/06/17 00:00 Room Air 98.0 Constitutional: General Apperance: heathly-appearing Level of Distress: NAD Psychiatric: Mental Status: active & alert Head: normocephalic Eyes: EOM: EOMI ENMT: normal ENT inspection, hearing grossly normal Neck: supple, no masses Lungs: Respiratory effort: no dyspnea, good air movement Auscultation: breath sounds normal, no wheezing Cardiovascular: Heart Auscultation: RRR, no murmurs, no rubs, no gallops Peripheral Pulses: Bruits: none appreciated Abdomen: Bowel Sounds: normal Inspection & Palpation: soft, no tenderness, guarding & rebound, no masses Musculoskeletal: normal strength (5/5 throughout) Extremities: no edema Neurologic: Cranial Nerves: grossly intact Sensation: grossly intact Data Laboratory Results: Last 24 Hours Test 06/06/17 06:21 White Blood Count 7.42 K/uL Red Blood Count 4.12 M/uL Hemoglobin 11.9 g/dL Hematocrit 35.3 % Mean Corpuscular Volume 85.7 fL Mean Corpuscular Hemoglobin 28.9 pg Mean Corpuscular Hemoglobin Concent 33.7 g/dl Platelet Count 310 K/uL Mean Platelet Volume 8.3 fL Neutrophils (%) (Auto) 62.6 % Lymphocytes (%) (Auto) 25.2 % Monocytes (%) (Auto) 9.0 % Eosinophils (%) (Auto) 2.6 % Basophils (%) (Auto) 0.5 % Neutrophils # (Auto) 4.64 K/uL Lymphocytes # (Auto) 1.87 K/uL Monocytes # (Auto) 0.67 K/uL Eosinophils # (Auto) 0.19 K/uL Basophils # (Auto) 0.04 K/uL RDW Standard Deviation 42.9 fL RDW Coefficient of Variation 13.8 % Immature Granulocyte % (Auto) 0.1 % Immature Granulocyte # (Auto) 0.01 K/uL Sodium Level 133 mmol/L Potassium Level 3.3 mmol/L Chloride Level 101 mmol/L Carbon Dioxide Level 23 mmol/L Anion Gap 9.0 mmol/L Blood Urea Nitrogen 6 mg/dl Creatinine 0.75 mg/dl Est Creatinine Clear Calc Drug Dose 70.3 ml/min Estimated GFR () 94.9 Estimated GFR (Non- 81.9 BUN/Creatinine Ratio 7.7 Random Glucose 94 mg/dl Calcium Level 8.6 mg/dl Total Bilirubin 0.5 mg/dl Aspartate Amino Transf (AST/SGOT) 14 U/L Alanine Aminotransferase (ALT/SGPT) 16 U/L Alkaline Phosphatase 99 U/L Total Protein 6.5 gm/dl Albumin 3.2 gm/dl Globulin 3.3 gm/dl Albumin/Globulin Ratio 1.0 Imaging: Echocardiography shows normal left ventricular size and function and no other significant abnormality. EKG: Sinus rhythm with nonspecific inferior ST-T abnormalities, nonspecific anterolateral T-wave abnormalities as well. Telemetry reviewed: Sinus rhythm and sinus bradycardia with premature atrial beats. No significant arrhythmia. Assessment & Plan 1. Chest discomfort: Her symptoms are little hard to evaluate, she has a long history of chest discomfort but tells me that she had quite severe discomfort when she presented this time. She tells me it lasted about an hour, the enzymes are negative. This would make it unlikely that this is cardiac in etiology however her electrocardiogram is a little bit abnormal, she has had inferior T-wave abnormalities in the past but not anterior ones which are now present. Although these are nonspecific I think it is worrisome in light of the chest discomfort. I think I would feel better performing a stress test, she tells me that she cannot walk on a treadmill therefore I am going to schedule a dobutamine echo for this morning. 2. Dyspnea on exertion: She does not appear to be in heart failure and she does not have left ventricular dysfunction. It is possible this is an anginal equivalent, if the stress test is negative then I doubt this is cardiac symptoms. Thank you for allowing me to participate in her care.
[2017-06-06] MEDS ORDERED: DOBUTamine HCL 12.5 MG/ML 20 ML VIAL ONE (10:12)
[2017-06-06] MEDS ORDERED: ATROPINE SULFATE 0.1 MG/ML 5ML SYR ONE ×3 (10:12→11:06)
[2017-06-06] MEDS ORDERED: METOPROLOL TARTRATE 1 MG/ML VIAL ONE ×2 (10:12→10:13)
[2017-06-06] MEDS ORDERED: PERFLUTREN LIPID MICROSPHERE (DEFINITY) IV ONE (11:18)
--- NOTE | 2017-06-06 12:36 | DOBUTAMINE ECHO ---
*NOTICE TO RECEIVING CONSTITUTION PARTY AGENCY This information is strictly Confidential and protected under [place] law. [place] law prohibits you from making any further disclosure of this information unless further disclosure is expressly permitted by the written consent of the person to whom it pertains or is authorized by law. A general authorization for the release of medical or other information is not sufficient for this purpose. Hospital accepts no responsibility if the information is made available to any other person, INCLUDING THE PATIENT. Interpretation Summary * Name: MIGUEL ROSALES Study Date: 06/06/2017 09:57 AM BP: 145/95 mmHg * Patient Location: .2E\S\E212\S\1 HR: 59 * : 1950 (M/d/yyyy) Gender: Female Height: 61 in * Age: 66 yrs Ethnicity: CA Weight: 183 lb * Ordering Physician: lAexis Boucher * Performed By: Kennedi Juares RDCS * * Reason For Study: CHEST PAIN * BSA: 1.8 m2 * -- Conclusions -- * Normal dobutamine echocardiogram without evidence of inducible ischemia At the workload achieved (82% MPHR) Procedure Details * DOBUTAMINE ECHO, CPT#08638 * A contrast injection of Definity was performed to improve assessment of LV function. * Contrast was injected into an intravenous site in the left arm. * One vial of Definity ultrasound contrast was diluted in normal saline to a total volume of 10 ml. A total of '5' ml of solution was administered during imaging. * Lot # [id number] of Definity utilized for procedure. * Expiration date 06/16. * The attending nurse who injected the contrast agent was VIK WILL RN. Stress Parameters * Normal baseline electrocardiogram. * Stress ECG: No ST changes. No arrhythmias. * There were occasional PVCs * Rest heart rate was '59' BPM. * Rest blood pressure was '145/95' * Maximum heart rate achieved was 125 bpm. * Maximum heart rate was 82 % of maximum age-predicted heart rate. * Maximum blood pressure was '221/110' * Total exercise time was '10:38' * Maximum Dobutamine infusion rate was '50' mcg/kg/min. * A total of 2 mg of intravenous Atropine was used to supplement Dobutamine for heart rate response. * Dobutamine infusion was terminated due to end of protocol/maximum medication doses * A total of 10 mg of IV Metoprolol was administered to reverse Dobutamine-induced tachycardia. * Target Heart Rate was not achieved due to chest pain. * The patient exhibited chest pain during the drug infusion. * Target heart rate not achieved. Left Ventricular Findings with Stress * Baseline EKG was normal. There was an occasional PVC with dobutamine infusion but no significant ST segement changes Baseline echocardiogram was normal with normal augmentation during peak dobutamine infusion and no inducible wall motion abnormalities.
--- NOTE | 2017-06-06 13:32 | Progress Note ---
Subjective Date of Service: Jun 06, 2017. Subjective Pt evaluation today including: conversation w/ patient, physical exam, chart review, lab review, review of inpatient medication list Pain: controlled PO Intake: adequate feeling good currently has no chest pain Problem List Medical Problems: (1) Acute electrocardiogram changes Status: Acute (2) Hypokalemia Status: Acute (3) Hyponatremia Status: Acute (4) Substernal chest pain Status: Acute Review of Systems Review of system Constitutional: No fever / no chills / no sweats / no weakness / no fatigue Eyes: no blurring of vision / no eye pain / no discharge / no redness ENT: no hearing loss / no epistaxis /no swallowing problems Respiratory: no cough / no wheezing / no SOB / no hemoptysis Cardiovascular: no Chest pain / no lower extremity edema / no palpitation Abdomen: no pain / no nausea / no vomiting / no constipation Musculoskeletal: no joint pain / no muscle pain / no joint swelling Genitourinary: no dysuria / no incontinence / no urinary retention Neurologic: no focal weakness / no numbness/tingling / no ataxia Psychiatric: no depression symptoms / no anxiety / no insomnia Endocrine: no excessive thirst / no excessive urination Hematologic: no abnormal bleeding / no bruising / no LN swelling Skin: No rash / no pallor Objective Vital Signs Date Time Temp Pulse Resp B/P (MAP) Pulse Ox O2 Delivery O2 Flow Rate FiO2 06/06/17 08:00 37.1 56 16 167/80 (109) 94 Room Air 06/06/17 07:30 Room Air 06/06/17 04:00 Room Air 95.0 06/06/17 03:59 37.0 58 16 165/76 (105) 95 Room Air 06/06/17 00:00 37.0 60 167/88 (114) 94 Room Air 06/06/17 00:00 Room Air 98.0 06/05/17 20:00 Room Air 06/05/17 19:17 37.0 61 18 161/89 (113) 96 Room Air 06/05/17 16:00 36.7 59 18 166/79 (108) 95 Room Air 06/05/17 16:00 Room Air Physical Exam Comments: Physical examination General patient appears to be comfortable, not in acute distress HEENT: Atraumatic , normocephalic /no jaundice /no pallor /anicteric /no dry mucous membrane /normal external ear inspection Neck: Supple /no swelling /central trach Heart: S1/S2 normal/regular rate and rhythm/no gallop /no rub /no murmur Lungs: Clear to auscultation bilaterally/normal chest with expansion/no rhonchi/ no rales/no wheezing/no use of accessory muscles of respiration Abdomen: Soft/nontender/no guarding/no rebound/no organomegaly/no pulsatile mass Musculoskeletal: No swelling/no edema/no tenderness/normal range of motion Neuro exam: Awake alert oriented 3/cranial nerves II through XII appear to be intact/sensation intact/moves all extremities/no abnormal movements Psychiatric evaluation: No depressed mood/normal affect Skin: No rash on exposed skin area/no erythema Extremity: Normal pulse/no pitting edema/no clubbing or cyanosis Endocrine/lymphatic: No obvious lymphadenopathy /no lymphedema Laboratory Results Last 24 Hours Test 06/06/17 06:21 White Blood Count 7.42 K/uL Red Blood Count 4.12 M/uL Hemoglobin 11.9 g/dL Hematocrit 35.3 % Mean Corpuscular Volume 85.7 fL Mean Corpuscular Hemoglobin 28.9 pg Mean Corpuscular Hemoglobin Concent 33.7 g/dl Platelet Count 310 K/uL Mean Platelet Volume 8.3 fL Neutrophils (%) (Auto) 62.6 % Lymphocytes (%) (Auto) 25.2 % Monocytes (%) (Auto) 9.0 % Eosinophils (%) (Auto) 2.6 % Basophils (%) (Auto) 0.5 % Neutrophils # (Auto) 4.64 K/uL Lymphocytes # (Auto) 1.87 K/uL Monocytes # (Auto) 0.67 K/uL Eosinophils # (Auto) 0.19 K/uL Basophils # (Auto) 0.04 K/uL RDW Standard Deviation 42.9 fL RDW Coefficient of Variation 13.8 % Immature Granulocyte % (Auto) 0.1 % Immature Granulocyte # (Auto) 0.01 K/uL Sodium Level 133 mmol/L Potassium Level 3.3 mmol/L Chloride Level 101 mmol/L Carbon Dioxide Level 23 mmol/L Anion Gap 9.0 mmol/L Blood Urea Nitrogen 6 mg/dl Creatinine 0.75 mg/dl Est Creatinine Clear Calc Drug Dose 70.3 ml/min Estimated GFR () 94.9 Estimated GFR (Non- 81.9 BUN/Creatinine Ratio 7.7 Random Glucose 94 mg/dl Calcium Level 8.6 mg/dl Total Bilirubin 0.5 mg/dl Aspartate Amino Transf (AST/SGOT) 14 U/L Alanine Aminotransferase (ALT/SGPT) 16 U/L Alkaline Phosphatase 99 U/L Total Protein 6.5 gm/dl Albumin 3.2 gm/dl Globulin 3.3 gm/dl Albumin/Globulin Ratio 1.0 Assessment and Plan Mrs. Alexis is a 66-year-old white female with Hx of hiatal hernia s/p fundal plication 2 years ago. 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
--- NOTE | 2017-06-06 14:17 | DIAGNOSTIC IMAGING REPORT ---
(BARIUM SWALLOW) ESOPHAGUS CLINICAL HISTORY: 66 years-old Female presenting with odynophagia, coffee grounds and previous Hank fundoplication. TECHNIQUE: A standard air contrast barium esophagram is performed. Multiple spot images of the esophagus are acquired both upright and prone. COMPARISON: 12/31/2014. FINDINGS: The patient was able to ingest barium, but was unable to ingest the barium pill. Normal mucosal pattern of the esophagus. No evidence of intrinsic or extrinsic mass lesion. No aspiration observed. No gross evidence of a pharyngeal mass. Tertiary contractions indicating dysmotility. The gastroesophageal junction distended normally. The gastroesophageal junction appears to be located above the diaphragm, although this may in part be related to postsurgical change. No gastroesophageal reflux could be elicited despite provocative maneuvers. Fluoroscopy dosage (mGy): Not available. Fluoroscopy time: 1.3 minutes. Number of fluoroscopic spot images: 24. IMPRESSION: 1. Dysmotility suggests presbyesophagus. 2. Small hiatal hernia versus postsurgical changes of the gastroesophageal junction from prior Hank. 3. The patient was unable to ingest the barium pill, which was expectorated. Electronically signed by: Matt Galeano M.D. 06/06/2017 2:16 PM Dictated Date/Time: 06/06/2017 2:13 PM
[2017-06-06 15:38] VITALS: BP 172/94; PULSE 64; TEMP 37; O2SAT 95
--- NOTE | 2017-06-06 15:50 | PROGRESS NOTE ---
DATE: 06/06/2017 Patient has had no further vomiting. Her hemoglobin today is 11.9, which is down from 13.7, 3 days ago. She did undergo a barium swallow today which was successful only for liquids. She was not able to swallow the barium tablet. She could not get it from the back of her throat into her esophagus which usually indicates some oropharyngeal dysphagia. 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 There was evidence of a previous Hank fundoplication at the GE junction. IMPRESSION: Patient is having difficulty swallowing, probably from a motility disorder. She did have some vomiting of blood earlier. I plan on proceeding with an EGD tomorrow to evaluate for that. Dr. Laws will actually be doing the procedure tomorrow afternoon.
[2017-06-06 19:31] VITALS: BP 162/76; PULSE 61; TEMP 36.8; O2SAT 95
[2017-06-06 20:00] VITALS: O2SAT 95
[2017-06-06] MEDS: CEFAZOLIN IV 1,000 MG in SYRINGE 0 ML IV SCH (20:57)
[2017-06-06] MEDS: ZOLPIDEM TARTRATE 10 MG TAB PO PRN (20:58)
[2017-06-06] MEDS: ROPINIROLE HCL 1 MG TAB PO SCH (20:58)
[2017-06-07] VITALS (10 sets, daily range): BP systolic 134–156; BP diastolic 67–79; PULSE 46–59; TEMP 36.6–36.7; O2SAT 94–96
[2017-06-07] MEDS: ALPRAZOLAM 0.5 MG TAB PO PRN ×2 (00:41→16:47)
[2017-06-07] MEDS: CEFAZOLIN IV 1,000 MG in SYRINGE 0 ML IV SCH ×3 (03:34→20:22)
[2017-06-07 06:38] LABS: HEMATOCRIT 35.7 % (37-47); MEAN CELL VOLUME 85.6 fL (80-100); MEAN CORPUSCULAR HEMOGLOBIN 28.8 pg (25-34); MEAN CORPUSCULAR HGB CONC 33.6 g/dl (32-36); MEAN PLATELET VOLUME 8.5 fL (7.4-10.4); PLATELET COUNT 303 K/uL (130-400); RED CELL DISTRIBUTION WIDTH CV 13.6 % (11.5-14.5); RED CELL DISTRIBUTION WIDTH SD 42.2 fL (36.4-46.3)
[2017-06-07 07:12] LABS: CALCIUM 8.8 mg/dl (8.5-10.1); CREATININE 0.77 mg/dl (0.60-1.20); POTASSIUM 3.2 mmol/L (3.5-5.1)
[2017-06-07] MEDS: METOPROLOL TARTRATE 50 MG TAB PO SCH ×2 (08:58→20:38)
[2017-06-07] MEDS: PANTOprazole INJ 40 MG in SYRINGE 0 ML IV SCH ×2 (09:00→20:22)
[2017-06-07] MEDS ORDERED: NURSING VERBAL MED ORDER ONE ×2 (09:30→16:15)
[2017-06-07] MEDS ORDERED: POTASSIUM CHLR 10MEQ / WTR IV ONE (09:45)
--- NOTE | 2017-06-07 13:50 | History & Physical Bridge Note ---
H&P Re-Evaluation Bridge Note: I have examined the patient, reviewed the History & Physical and in the interval since the performance of the History & Physical I have noted the following changes of clinical significance: No changes noted
--- NOTE | 2017-06-07 14:37 | GI REPORT ---
Procedure Date: 06/07/2017 2:03 PM Procedure: Upper GI endoscopy Indications: Dysphagia Medicines: Propofol per Anesthesia Complications: No immediate complications. Estimated blood loss: Minimal. Estimated Blood Loss: Estimated blood loss was minimal. Procedure: Pre-Anesthesia Assessment: - Prior to the procedure, a History and Physical was performed, and patient medications and allergies were reviewed. The patient's tolerance of previous anesthesia was also reviewed. The risks and benefits of the procedure and the sedation options and risks were discussed with the patient. All questions were answered, and informed consent was obtained. Prior Anticoagulants: The patient has taken no previous anticoagulant or antiplatelet agents. ASA Grade Assessment: III - A patient with severe systemic disease. After reviewing the risks and benefits, the patient was deemed in satisfactory condition to undergo the procedure. After obtaining informed consent, the endoscope was passed under direct vision. Throughout the procedure, the patient's blood pressure, pulse, and oxygen saturations were monitored continuously. The Scope was introduced through the mouth, and advanced to the second part of duodenum. The upper GI endoscopy was accomplished without difficulty. The patient tolerated the procedure well. Findings: LA Grade A (one or more mucosal breaks less than 5 mm, not extending between tops of 2 mucosal folds) esophagitis with no bleeding was found 35 to 36 cm from the incisors. A low-grade of narrowing, non-obstructing and mild Schatzki ring (acquired) was found at the gastroesophageal junction. A guidewire was placed and the scope was withdrawn. Dilation was performed with a Savary dilator with no resistance at 54 Fr. A medium amount of food (residue) was found in the gastric body. Diffuse mildly erythematous mucosa without bleeding was found in the gastric antrum. Biopsies were taken with a cold forceps for histology. Estimated blood loss was minimal. Verification of patient identification for the specimen was done by the physician and order entry technician using the patient's name and medical record number. The exam of the stomach was otherwise normal. The examined duodenum was normal. The cardia and gastric fundus were normal on retroflexion. Impression: - LA Grade A reflux esophagitis. - Low-grade of narrowing, non-obstructing and mild Schatzki ring. Dilated. - A medium amount of food (residue) in the stomach. - Erythematous mucosa in the antrum. Biopsied. - Normal examined duodenum. Recommendation: - Discharge patient to home (ambulatory). - Resume regular diet. - Continue present medications. - Await pathology results. - Return to referring physician as previously scheduled. - Consider gastric emptying scan. Gastroparesis diet. PPI therapy for mild esophagitis MD Joe Sheridan MD 06/07/2017 2:37:30 PM This report has been signed electronically. Note Initiated On: 06/07/2017 2:03 PM I attest to the content of the Intraoperative Record and orders documented therein, exceptions below
[2017-06-07] MEDS ORDERED: PROPOFOL IV EMULSION 10 MG/ML 20 ML VIAL IV ONE (14:38)
[2017-06-07] MEDS ORDERED: LIDOCAINE HCL 2% 2 ML VIAL (20MG/ML) ONE (14:38)
--- NOTE | 2017-06-07 14:50 | Anesthesiology Progress Note ---
Anesthesia Post Op Note Date & Time Jun 07, 2017 at 14:50 Vital Signs Pain Intensity: 0 Vital Signs Past 12 Hours Date Time Temp Pulse Resp B/P (MAP) Pulse Ox O2 Delivery O2 Flow Rate FiO2 06/07/17 14:36 57 16 140/98 (112) 95 Room Air 06/07/17 13:43 36.8 48 16 175/80 (111) 96 Room Air 06/07/17 11:54 36.6 50 16 144/71 (95) 94 Room Air 06/07/17 11:30 Room Air 06/07/17 08:57 50 06/07/17 08:01 36.6 53 20 142/67 (92) 96 Room Air 06/07/17 08:00 Room Air 06/07/17 04:00 95 Room Air 06/07/17 03:38 36.6 53 18 148/79 (102) 95 Room Air Notes Mental Status: alert / awake / arousable, participated in evaluation Pt Amnestic to Procedure: Yes Nausea / Vomiting: adequately controlled Pain: adequately controlled Airway Patency, RR, SpO2: stable & adequate BP & HR: stable & adequate Hydration State: stable & adequate Anesthetic Complications: no major complications apparent
[2017-06-07] MEDS ORDERED: POTASSIUM CHLORIDE 20 MEQ/15 ML UDC PO ONE (16:15)
--- NOTE | 2017-06-07 16:30 | Cardiology Follow-Up ---
Subjective Date of Service: Jun 07, 2017. Pt evaluation today including: conversation w/ patient, physical exam, lab review, review of studies, review of inpatient medication list History of Present Illness This is a 66-year-old woman who has a history of a chest pain syndrome, but no known coronary artery disease. She presented with coffee-ground emesis. She also has a long history of chest discomfort as well as other symptoms. She describes having chest discomfort associated with shortness of breath with exertion, she tells me she had stress testing done at [facility] several years ago before esophageal surgery and does not know for sure the results but thinks there were no abnormalities (at least it was not recommended that she have further treatment or evaluation). She told me that she has severe shortness of breath at home, she cannot get up and walk across the room to turn on the television without having shortness of breath, she tells me that that occurred over the last several months although she also told me that it occurred 2 years ago when she was at [place] but that it was related to her surgical need at that time. She describes substernal tightness with exertion, she describes severe chest discomfort on admission at the time when she was having a cough, vomiting and shortness of breath. Evaluation here has included echocardiography which shows normal left ventricular size and function as well as electrocardiography where she does have some inferior and anterolateral T-wave abnormalities which are nonspecific. Of note, we have electrocardiograms going back to [address]-T abnormalities are present however anterior T-wave abnormalities appear to be new. Her cardiac enzymes were negative this admission despite prolonged chest discomfort. A dobutamine stress echo done June 06, 2017 was negative for ischemia. She therefore underwent EGD. Today she feels fairly well, she is still complaining of some mild chest discomfort, similar to before. No other complaints. Social History Smoking Status: Never Smoker History of Alcohol Use: No Review of Systems Respiratory: + see HPI, + shortness of breath, + dyspnea on exertion Cardiac: + see HPI, + chest pain Medications Cardiovascular: Item Value Date Time Metoprolol 50 mg 06/04/17 0900 Tartrate QAM/PO (Lopressor Tab) Metoprolol 100 mg 06/03/17 2100 Tartrate HS/PO 06/06/172057 (Lopressor Tab) Objective Vital Signs Past 12 Hours Date Time Temp Pulse Resp B/P (MAP) Pulse Ox O2 Delivery O2 Flow Rate FiO2 06/07/17 15:45 Room Air 06/07/17 15:05 51 16 167/89 (115) 95 Room Air 06/07/17 14:50 50 16 146/90 (108) 94 Room Air 06/07/17 14:36 57 16 140/98 (112) 95 Room Air 06/07/17 13:43 36.8 48 16 175/80 (111) 96 Room Air 06/07/17 11:54 36.6 50 16 144/71 (95) 94 Room Air 06/07/17 11:30 Room Air 06/07/17 08:57 50 06/07/17 08:01 36.6 53 20 142/67 (92) 96 Room Air 06/07/17 08:00 Room Air Last Recorded Weight-Kilograms: 83.500 Intake & Output 8-Hour Column 06/07/17 06/08/17 06/08/17 16:00 00:00 08:00 Output Total 550 ml Balance -550 ml 24-Hour Column 06/08/17 08:00 Output Total 550 ml Balance -550 ml Physical Exam Constitutional: General Apperance: heathly-appearing Level of Distress: NAD Lungs: Respiratory effort: no dyspnea, good air movement Auscultation: breath sounds normal, no wheezing Cardiovascular: Heart Auscultation: RRR, no murmurs, no rubs, no gallops Peripheral Pulses: Bruits: none appreciated Extremities: no edema Data Laboratory Results: Last 24 Hours Test 06/07/17 06:25 White Blood Count 7.80 K/uL Red Blood Count 4.17 M/uL Hemoglobin 12.0 g/dL Hematocrit 35.7 % Mean Corpuscular Volume 85.6 fL Mean Corpuscular Hemoglobin 28.8 pg Mean Corpuscular Hemoglobin Concent 33.6 g/dl RDW Standard Deviation 42.2 fL RDW Coefficient of Variation 13.6 % Platelet Count 303 K/uL Mean Platelet Volume 8.5 fL Sodium Level 131 mmol/L Potassium Level 3.2 mmol/L Chloride Level 99 mmol/L Carbon Dioxide Level 24 mmol/L Anion Gap 8.0 mmol/L Blood Urea Nitrogen 8 mg/dl Creatinine 0.77 mg/dl Est Creatinine Clear Calc Drug Dose 68.5 ml/min Estimated GFR () 92.0 Estimated GFR (Non- 79.3 BUN/Creatinine Ratio 10.1 Random Glucose 97 mg/dl Calcium Level 8.8 mg/dl Telemetry reviewed: Sinus bradycardia, no significant arrhythmia Assessment and Plan 1. Chest discomfort: She continues to have vague chest discomfort, there is no evidence that this is cardiac and I believe it to be noncardiac, very possibly GI. I would not pursue any further cardiovascular testing. 2. Dyspnea on exertion: She does not appear to be in heart failure and she does not have left ventricular dysfunction. She does have a resting bradycardia , perhaps she has an appropriate heart rate response with activity which could explain dyspnea on exertion. At the moment we cannot test for that, perhaps we can ambulate her in the marshall before she goes home. If not we can consider ambulatory monitoring to see if the shortness of breath correlates in any way with heart rate. 3. Bradycardia: She has sinus bradycardia, her heart rate has been running quite low here although she is on fairly high doses of metoprolol tartrate. It may be worth a consideration of switching her to by systolic which has less effect on heart rate, it is also good antihypertensive. She tells me that the blood pressures only thing that has controlled her blood pressure although that still remained somewhat high. Avoiding negative chronotropic medications might be a good idea although it is possible she will need beta-blockade for adequate blood pressure control. I have not made these changes. Thank you for allowing me to participate in her care.
[2017-06-07] MEDS: FLUOXETINE HCL 20 MG CAP PO SCH (16:43)
--- NOTE | 2017-06-07 16:58 | GASTROENTEROLOGY PROGRESS NOTE ---
DATE: 06/07/2017 Gastroenterology inpatient update note. The patient underwent upper endoscopy today. Evidence of mild esophagitis, small hiatal hernia, nonobstructing Schatzki ring low grade, and mild erythema in the stomach which was biopsied. There was also retained gastric contents. The patient is not diabetic by her history. Barium study performed yesterday showed evidence of presbyesophagus and hiatal hernia, although a barium tablet could not be tolerated by the patient. IMPRESSION: 1. Await biopsies from the stomach to rule out H. pylori. 2. Advance diet as tolerated. Would consider a course of PPI therapy, Protonix 40 mg daily or equivalent for 4 months. Would adhere to gastroparesis diet and could consider gastric emptying scan if not recently performed. The patient denied a history of diabetes although is currently not on any antidiabetic medications at home or here.
--- NOTE | 2017-06-07 20:11 | Progress Note ---
Subjective Date of Service: Jun 07, 2017. Subjective Pt evaluation today including: conversation w/ patient, physical exam, chart review, lab review, review of studies, review of inpatient medication list Pain: Controlled PO Intake: Adequate Voiding: no voiding problems, no incontinence Status post EGD Tolerating procedure well Problem List Medical Problems: (1) Acute electrocardiogram changes Status: Acute (2) Hypokalemia Status: Acute (3) Hyponatremia Status: Acute (4) Substernal chest pain Status: Acute Review of Systems Review of system Constitutional: No fever / no chills / no sweats / no weakness / no fatigue Eyes: no blurring of vision / no eye pain / no discharge / no redness ENT: no hearing loss / no epistaxis /no swallowing problems Respiratory: Chronic intermittent cough occasionally productive with clear sputum/ no wheezing / no SOB / no hemoptysis Cardiovascular: no Chest pain / no lower extremity edema / no palpitation Abdomen: no pain / no nausea / no vomiting / no constipation Musculoskeletal: no joint pain / no muscle pain / no joint swelling Genitourinary: no dysuria / no incontinence / no urinary retention Neurologic: no focal weakness / no numbness/tingling / no ataxia Psychiatric: no depression symptoms / no anxiety / no insomnia Endocrine: no excessive thirst / no excessive urination Hematologic: no abnormal bleeding / no bruising / no LN swelling Skin: No rash / no pallor Objective Vital Signs Date Time Temp Pulse Resp B/P (MAP) Pulse Ox O2 Delivery O2 Flow Rate FiO2 06/07/17 19:25 36.6 52 18 134/74 (94) 94 Room Air 06/07/17 15:45 Room Air 06/07/17 15:44 36.6 46 18 151/76 (101) 96 Room Air 06/07/17 15:05 51 16 167/89 (115) 95 Room Air 06/07/17 14:50 50 16 146/90 (108) 94 Room Air 06/07/17 14:36 57 16 140/98 (112) 95 Room Air 06/07/17 13:43 36.8 48 16 175/80 (111) 96 Room Air 06/07/17 11:54 36.6 50 16 144/71 (95) 94 Room Air 06/07/17 11:30 Room Air 06/07/17 08:57 50 06/07/17 08:01 36.6 53 20 142/67 (92) 96 Room Air 06/07/17 08:00 Room Air 06/07/17 04:00 95 Room Air 06/07/17 03:38 36.6 53 18 148/79 (102) 95 Room Air 06/07/17 00:16 36.7 57 18 156/78 (104) 94 Room Air 06/07/17 00:00 95 Room Air Physical Exam Comments: Physical examination General patient appears to be comfortable, not in acute distress HEENT: Atraumatic , normocephalic /no jaundice /no pallor /anicteric /no dry mucous membrane /normal external ear inspection Neck: Supple /no swelling /central trach Heart: S1/S2 normal/regular rate and rhythm/no gallop /no rub /no murmur Lungs: Clear to auscultation bilaterally/normal chest with expansion/no rhonchi/ no rales/no wheezing/no use of accessory muscles of respiration Abdomen: Soft with mild epigastric tenderness r/no guarding/no rebound/no organomegaly/no pulsatile mass Musculoskeletal: No swelling/no edema/no tenderness/normal range of motion Neuro exam: Awake alert oriented 3/cranial nerves II through XII appear to be intact/sensation intact/moves all extremities/no abnormal movements Psychiatric evaluation: No depressed mood/normal affect Skin: No rash on exposed skin area/no erythema Extremity: Normal pulse/no pitting edema/no clubbing or cyanosis Endocrine/lymphatic: No obvious lymphadenopathy /no lymphedema Laboratory Results Last 24 Hours Test 06/07/17 06:25 White Blood Count 7.80 K/uL Red Blood Count 4.17 M/uL Hemoglobin 12.0 g/dL Hematocrit 35.7 % Mean Corpuscular Volume 85.6 fL Mean Corpuscular Hemoglobin 28.8 pg Mean Corpuscular Hemoglobin Concent 33.6 g/dl RDW Standard Deviation 42.2 fL RDW Coefficient of Variation 13.6 % Platelet Count 303 K/uL Mean Platelet Volume 8.5 fL Sodium Level 131 mmol/L Potassium Level 3.2 mmol/L Chloride Level 99 mmol/L Carbon Dioxide Level 24 mmol/L Anion Gap 8.0 mmol/L Blood Urea Nitrogen 8 mg/dl Creatinine 0.77 mg/dl Est Creatinine Clear Calc Drug Dose 68.5 ml/min Estimated GFR () 92.0 Estimated GFR (Non- 79.3 BUN/Creatinine Ratio 10.1 Random Glucose 97 mg/dl Calcium Level 8.8 mg/dl Assessment and Plan Mrs. Alexis is a 66-year-old white female with Hx of hiatal hernia s/p fundal plication 2 years ago. 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 there was some food remnants and stomach indicating possible delayed emptying No history of diabetes but gastric emptying study is being considered by GI Continue Protonix as per GI recommendations hyponatremia, hypokalemia, ivf replete Anxiety continue home Xanax, insomnia, using ambien sensitive kleb pneumo UTI, continue cefazolin add lactinex No chemoprophylaxis due to possible upper GI bleed SCDs Full code
[2017-06-07] MEDS: ROPINIROLE HCL 1 MG TAB PO SCH (20:25)
[2017-06-07] MEDS: ZOLPIDEM TARTRATE 10 MG TAB PO PRN (20:25)
[2017-06-08] MEDS: CEFAZOLIN IV 1,000 MG in SYRINGE 0 ML IV SCH ×3 (03:09→11:42)
[2017-06-08 03:13] VITALS: BP 168/78; PULSE 62; TEMP 36.6; O2SAT 94
[2017-06-08 07:47] LABS: BASO % 0.8 %; BASO ABS # 0.06 K/uL (0-0.2); EOS % 2.1 %; EOS ABS # 0.16 K/uL (0-0.5); HEMATOCRIT 36.9 % (37-47); HEMOGLOBIN 12.5 g/dL (12.0-16.0); IG# 0.02 K/uL (0.00-0.02); LYMPH % 24.3 %; LYMPH ABS # 1.82 K/uL (1.2-3.4); MEAN CORPUSCULAR HEMOGLOBIN 28.8 pg (25-34); MEAN CORPUSCULAR HGB CONC 33.9 g/dl (32-36); MONO % 9.2 %; MONO ABS # 0.69 K/uL (0.11-0.59); NEUT % 63.3 %; NEUT ABS # 4.74 K/uL (1.4-6.5); PLATELET COUNT 330 K/uL (130-400); RED CELL DISTRIBUTION WIDTH CV 13.6 % (11.5-14.5); RED CELL DISTRIBUTION WIDTH SD 42.2 fL (36.4-46.3); WHITE BLOOD COUNT 7.49 K/uL (4.8-10.8)
[2017-06-08 08:08] VITALS: BP 157/89; PULSE 62; TEMP 36.3; O2SAT 96
[2017-06-08 08:15] LABS: ALBUMIN 3.3 gm/dl (3.4-5.0); CALCIUM 8.6 mg/dl (8.5-10.1); CREATININE 0.6 mg/dl (0.60-1.20)
[2017-06-08 08:18] LABS: TOTAL PROTEIN 6.7 gm/dl (6.4-8.2)
[2017-06-08] MEDS: METOPROLOL TARTRATE 50 MG TAB PO SCH (08:40)
[2017-06-08] MEDS: LACTOBACILLUS ACIDOPHILUS (FLORANEX) TAB PO SCH ×2 (08:40→11:42)
[2017-06-08] MEDS: PANTOprazole INJ 40 MG in SYRINGE 0 ML IV SCH (08:40)
[2017-06-08] MEDS: FLUOXETINE HCL 20 MG CAP PO SCH (09:16)
--- NOTE | 2017-06-08 09:42 | Cardiology Follow-Up ---
Subjective Date of Service: Jun 08, 2017. Pt evaluation today including: conversation w/ patient, physical exam, lab review, review of inpatient medication list History of Present Illness This is a 66-year-old woman who has a history of a chest pain syndrome, but no known coronary artery disease. She presented with coffee-ground emesis. She also has a long history of chest discomfort as well as other symptoms. She describes having chest discomfort associated with shortness of breath with exertion, she tells me she had stress testing done at [facility] several years ago before esophageal surgery and does not know for sure the results but thinks there were no abnormalities (at least it was not recommended that she have further treatment or evaluation). She told me that she has severe shortness of breath at home, she cannot get up and walk across the room to turn on the television without having shortness of breath, she tells me that that occurred over the last several months although she also told me that it occurred 2 years ago when she was at [place] but that it was related to her surgical need at that time. She describes substernal tightness with exertion, she describes severe chest discomfort on admission at the time when she was having a cough, vomiting and shortness of breath. Evaluation here has included echocardiography which shows normal left ventricular size and function as well as electrocardiography where she does have some inferior and anterolateral T-wave abnormalities which are nonspecific. Of note, we have electrocardiograms going back to [address]-T abnormalities are present however anterior T-wave abnormalities appear to be new. Her cardiac enzymes were negative this admission despite prolonged chest discomfort. A dobutamine stress echo done June 06, 2017 was negative for ischemia. She therefore underwent EGD. Today she she is complaining of some abdominal discomfort and some diarrhea, no cardiovascular complaints. Social History Smoking Status: Never Smoker History of Alcohol Use: No Review of Systems Respiratory: + see HPI, + shortness of breath, + dyspnea on exertion Cardiac: + see HPI Medications Cardiovascular: Item Value Date Time Metoprolol 50 mg 06/04/17 0900 Tartrate QAM/PO 06/08/17 0840 (Lopressor Tab) Metoprolol 100 mg 06/03/17 2100 Tartrate HS/PO (Lopressor Tab) Objective Vital Signs Past 12 Hours Date Time Temp Pulse Resp B/P (MAP) Pulse Ox O2 Delivery O2 Flow Rate FiO2 06/08/17 08:08 36.3 62 20 157/89 (111) 96 Room Air 06/08/17 04:00 Room Air 06/08/17 03:13 36.6 62 16 168/78 (108) 94 Room Air 06/08/17 00:01 Room Air 06/07/17 23:37 36.6 59 18 153/77 (102) 94 Room Air Last Recorded Weight-Kilograms: 83.000 Physical Exam Constitutional: General Apperance: heathly-appearing Level of Distress: NAD Lungs: Respiratory effort: no dyspnea, good air movement Auscultation: breath sounds normal, no wheezing Cardiovascular: Heart Auscultation: RRR, no murmurs, no rubs, no gallops Peripheral Pulses: Bruits: none appreciated Extremities: no edema Data Laboratory Results: Last 24 Hours Test 06/08/17 07:04 White Blood Count 7.49 K/uL Red Blood Count 4.34 M/uL Hemoglobin 12.5 g/dL Hematocrit 36.9 % Mean Corpuscular Volume 85.0 fL Mean Corpuscular Hemoglobin 28.8 pg Mean Corpuscular Hemoglobin Concent 33.9 g/dl Platelet Count 330 K/uL Mean Platelet Volume 9.0 fL Neutrophils (%) (Auto) 63.3 % Lymphocytes (%) (Auto) 24.3 % Monocytes (%) (Auto) 9.2 % Eosinophils (%) (Auto) 2.1 % Basophils (%) (Auto) 0.8 % Neutrophils # (Auto) 4.74 K/uL Lymphocytes # (Auto) 1.82 K/uL Monocytes # (Auto) 0.69 K/uL Eosinophils # (Auto) 0.16 K/uL Basophils # (Auto) 0.06 K/uL RDW Standard Deviation 42.2 fL RDW Coefficient of Variation 13.6 % Immature Granulocyte % (Auto) 0.3 % Immature Granulocyte # (Auto) 0.02 K/uL Sodium Level 134 mmol/L Potassium Level 3.0 mmol/L Chloride Level 102 mmol/L Carbon Dioxide Level 24 mmol/L Anion Gap 8.0 mmol/L Blood Urea Nitrogen 6 mg/dl Creatinine 0.60 mg/dl Est Creatinine Clear Calc Drug Dose 87.6 ml/min Estimated GFR () 108.5 Estimated GFR (Non- 93.7 BUN/Creatinine Ratio 9.4 Random Glucose 86 mg/dl Calcium Level 8.6 mg/dl Magnesium Level 1.9 mg/dl Total Bilirubin 0.4 mg/dl Aspartate Amino Transf (AST/SGOT) 13 U/L Alanine Aminotransferase (ALT/SGPT) 13 U/L Alkaline Phosphatase 100 U/L Total Protein 6.7 gm/dl Albumin 3.3 gm/dl Globulin 3.4 gm/dl Albumin/Globulin Ratio 1.0 Telemetry reviewed: Sinus rhythm and sinus bradycardia, heart rate as low as the 40s overnight. Assessment and Plan 1. Chest discomfort: This has improved and there is no evidence that this is cardiac and I believe it to be noncardiac, very possibly GI. I would not pursue any further cardiovascular testing. 2. Dyspnea on exertion: She described worsening of dyspnea on exertion on admission however she does not appear to be in heart failure and she does not have left ventricular dysfunction. She does have a resting bradycardia, perhaps she has an appropriate heart rate response with activity which could explain dyspnea on exertion. At the moment we cannot test for that, perhaps we can ambulate her in the marshall before she goes home. If not we can consider ambulatory monitoring to see if the shortness of breath correlates in any way with heart rate. 3. Bradycardia: She continues to have sinus bradycardia, with heart rates as low as about 40 bpm. This is at night and is not dangerous, however I am concerned that her bradycardia may be responsible for some of her symptoms, additionally her blood pressure has been quite high. I am going to stop her metoprolol tartrate and switch her to Bystolic. 4. Hypertension: She has ongoing hypertension as well as sinus bradycardia, her rate does not get dangerously low and she is on high dose beta-blockade. She tells me that beta-blockade is the only thing that has helped her hypertension, but her blood pressure is still quite elevated. I am going to try Bystolic which often works better for her hypertension has less effect on heart rate but is in the same class. Thank you for allowing me to participate in her care.
[2017-06-08] MEDS ORDERED: POTASSIUM CHLORIDE 20 MEQ/15 ML UDC PO SCH (09:57)
[2017-06-08] MEDS ORDERED: NEBIVOLOL HCL 5 MG TAB PO SCH (11:00)
[2017-06-08 11:19] VITALS: BP 161/86; PULSE 55; TEMP 37; O2SAT 96
[2017-06-08] MEDS ORDERED: PANT40TA PO (15:35)
[2017-06-08] MEDS ORDERED: NEBI20TA2 PO (15:35)
[2017-06-08] MEDS ORDERED: POTA10SO10 PO (15:35)
--- NOTE | 2017-06-08 15:36 | Discharge Instructions ---
Discharge Instructions Date of Service Jun 08, 2017. Admission Reason for Admission: Chest Pain Discharge Discharge Diagnosis / Problem: chest pain secondary to GERD Discharge Goals Goal(s): Decrease discomfort Activity Recommendations Activity Limitations: resume your previous activity . Current Hospital Diet Patient's current hospital diet: Clear Liquid Diet Discharge Diet Recommended Diet: Regular Diet, Low Sodium Diet (2gm Na) Procedures Procedures Performed: EGD, BX, ESOPHAGEAL DILATION Pending Studies Studies pending at discharge: yes List of pending studies: stomach biopsy results to be followed up with GI physician in 2 weeks Laboratory Results Hemoglobin A1c Test 06/04/17 06:24 Range/Units Estimated Average Glucose 108 mg/dl Hemoglobin A1c 5.4 4.5-5.6 % Lipid Panel Test 06/04/17 06:24 Range/Units Triglycerides Level 223 H 0-150 mg/dl Cholesterol Level 256 H 0-200 mg/dl HDL Cholesterol 33 mg/dl Cholesterol/HDL Ratio 7.8 LDL Cholesterol, Calculated 178 mg/dl Medical Emergencies . Who to Call and When: Medical Emergencies: If at any time you feel your situation is an emergency, please call 911 immediately. . Non-Emergent Contact Non-Emergency issues call your: Primary Care Provider, Catalogue Librarian, Circuit Breaker Supervisor Call Non-Emergent contact if: you have a fever . . "Provider Documentation" section prepared by Franko Varner. .
--- NOTE | 2017-06-08 15:53 | Discharge Summary ---
Discharge Summary Date of Service Jun 08, 2017. Discharge Summary Admission Date: Jun 03, 2017 at 15:24 Discharge Date: Jun 08, 2017 Discharge Disposition: Home Principal Diagnosis: coffee ground emesis Problems/Secondary Diagnoses: Chest pain likely musculoskeletal , ACS ruled out coffee ground emesis sensitive kleb pneumo UTI POA Essential HTN Immunizations: Have You Had Influenza Vaccine: No History of Tetanus Vaccine?: No History of Pneumococcal: No History of Hepatitis B Vaccine: Yes Procedures: stress test * -- Conclusions -- * Normal dobutamine echocardiogram without evidence of inducible ischemia At the workload achieved (82% MPHR) * echo * -- Conclusions -- * The left ventricle is normal in size. * Left ventricular systolic function is normal. * Ejection Fraction = 60-65%. * The left ventricular wall motion is normal. * There is moderate concentric left ventricular hypertrophy. * Grade I diastolic dysfunction, (abnormal relaxation pattern). * There is mild mitral regurgitation. * The left atrium is mildly dilated. * There is mild tricuspid regurgitation. * Right ventricular systolic pressure is normal. Medication Reconciliation New Medications: Nebivolol Hcl (Bystolic) 20 Mg Tab 1 TAB PO DAILY for 30 Days, #30 TAB 1 Refill Pantoprazole Sodium (Protonix) 40 Mg Tab 40 MG PO DAILY for 120 Days, #120 TAB Potassium Chloride (Potassium Chloride) 10 % Liq 40 MEQ PO QAM for 30 Days, #450 ML Continued Medications: Albuterol Sulfate (Proair Respiclick) 108 Mcg/Act Aer 1-2 PUFF INH Q4H PRN for Shortness of Breath Alprazolam (Xanax) 0.5 Mg Tab 0.5 MG PO BID PRN for Anxiety, TAB Fluoxetine (Prozac) 40 Mg Cap 40 MG PO DAILY, CAP Ropinirole (Requip) 2 Mg Tab 2 MG PO HS, TAB TAKE 2 MG AT BEDTIME NEEDED FOR RESTLESS LEGS Zolpidem Tartrate (Ambien) 10 Mg Tab 10 MG PO HS PRN for Sleep, TAB Discontinued Medications: Metoprolol Tartrate (Lopressor) (Lopressor) 50 Mg Tab 50 MG PO QAM, TAB Metoprolol Tartrate (Lopressor) (Lopressor) 50 Mg Tab 100 MG PO HS, TAB Referrals At Discharge Follow up Referrals: Single Stroke Preformer Referral - Within 1-2 Weeks with Alexis Boucher M.D. Waste Picker Referral - Within 1-2 Weeks with Joe Laws M.D. Discharge Exam Review of system Constitutional: No fever / no chills / no sweats / no weakness / no fatigue Eyes: no blurring of vision / no eye pain / no discharge / no redness ENT: no hearing loss / no epistaxis /no swallowing problems Respiratory: no cough / no wheezing / no SOB / no hemoptysis Cardiovascular: no Chest pain / no lower extremity edema / no palpitation Abdomen: no pain / no nausea / no vomiting / no constipation Musculoskeletal: no joint pain / no muscle pain / no joint swelling Genitourinary: no dysuria / no incontinence / no urinary retention Neurologic: no focal weakness / no numbness/tingling / no ataxia Psychiatric: no depression symptoms / no anxiety / no insomnia Endocrine: no excessive thirst / no excessive urination Hematologic: no abnormal bleeding / no bruising / no LN swelling Skin: No rash / no pallor Physical examination General patient appears to be comfortable, not in acute distress HEENT: Atraumatic , normocephalic /no jaundice /no pallor /anicteric /no dry mucous membrane /normal external ear inspection Neck: Supple /no swelling /central trach Heart: S1/S2 normal/regular rate and rhythm/no gallop /no rub /no murmur Lungs: Clear to auscultation bilaterally/normal chest with expansion/no rhonchi/ no rales/no wheezing/no use of accessory muscles of respiration Abdomen: Soft/nontender/no guarding/no rebound/no organomegaly/no pulsatile mass Musculoskeletal: No swelling/no edema/no tenderness/normal range of motion Neuro exam: Awake alert oriented 3/cranial nerves II through XII appear to be intact/sensation intact/moves all extremities/no abnormal movements Psychiatric evaluation: No depressed mood/normal affect Skin: No rash on exposed skin area/no erythema Extremity: Normal pulse/no pitting edema/no clubbing or cyanosis Endocrine/lymphatic: No obvious lymphadenopathy /no lymphedema Hospital Course HPI as per admission note "Ms. Alexis has been having chest pain since yesterday with weakness and nausea. She has a history of hiatal hernia which she had surgery for two years ago. She is often nauseas at baseline but today she had a large coffee ground emesis. No dark tarry stools or blood in her stool. She does not take NSAIDs, ASA or anticoagulation. The chest pain is substernal and came on while she was at rest sitting. It does not get better or worse with activity or with eating. She is sob which comes and goes. She coughs all the time which is her baseline. She has had palpitations and dizziness since yesterday" Mrs. Alexis is a 66-year-old white female with Hx of hiatal hernia s/p fundal plication 2 years ago. presented with intermittent substernal chest, dysphagia to solids>liquids and coffee-ground emesis started on PPI BID IV. seen by GI who requested a facilities engineer clearance for EGD seen by facilities engineer, S/P negative nuclear stress test. her metoprolol was switched to Bystolic. she was found to have sensitive kleb pneumo UTI POA, initially started on levofloxacin then switched to cefazolin plus lactinex 2D echo noted, normal EF consult GI Dr Sidhu appreciated, status post barium swallow and EGD Both show evidence of previous by esophagus/hiatal hernia/mild esophagitis/ nonobstructive schatzki ring/mild erythema And despite of patient being n.p.o. there was some food remnants and stomach indicating possible delayed emptying No history of diabetes but gastric emptying study is being considered by GI Continue Protonix for 4 month as per GI recommendations started on potassium supplement for hypokalemia, if bystolic is not sufficient to fix her blood pressure then consider potassium sparing diuretic or ACEI stable for discharge Total Time Spent: Greater than 30 minutes This includes examination of the patient, discharge planning, medication reconciliation, and communication with other providers. Discharge Instructions Please refer to the electronic Patient Visit Report (Discharge Instructions) for additional information.
[2017-06-08 16:06] VITALS: BP 161/86; PULSE 55; TEMP 37; O2SAT 96
--- NOTE | 2017-06-08 17:07 | GASTROENTEROLOGY PROGRESS NOTE ---
DATE: 06/08/2017 HISTORY OF PRESENT ILLNESS: Chart reviewed, patient examined. The patient doing well overall. No significant dysphagia, though she has not had any solid foods today. The endoscope yesterday revealed a nonobstructing Schatzki ring, small hiatal hernia and retained gastric contents. The gastric biopsies are pending. Medications were reviewed and include Bystolic, potassium, Ancef, fluoxetine, Requip, Zofran, pantoprazole, Xanax. LABORATORY STUDIES: Blood work today, white count 7.4, hemoglobin 12.5, BUN and creatinine 6 and 0.6, potassium is low at 3.0. REVIEW OF SYSTEMS: Otherwise noncontributory based on 13-point exam except for mentioned above. PHYSICAL EXAMINATION: VITAL SIGNS: The patient's vital signs today, afebrile 37.0, blood pressure 161/86, heart rate 55, respirations 28, pulse ox 96% on room air. GENERAL: The patient is awake, alert and oriented x3, resting comfortably in bed. HEENT: Sclerae are anicteric, conjunctivae moist. Oral mucosa moist. HEART: Normal S1, S2. LUNGS: Clear to auscultation. ABDOMEN: Soft, flat, nontender, nondistended. Good bowel sounds. EXTREMITIES: Without clubbing, cyanosis or edema. RECTAL: Deferred. IMPRESSION AND PLAN: The patient with symptoms of dysphagia with barium study showing presbyesophagus, small hiatal hernia. This endoscopy showed a small Schatzki ring that was dilated to 52 [place] and retained gastric contents of unclear etiology. There is no outlet obstruction. Biopsies were taken of the antrum for H. pylori status. The patient may be discharged this evening or tomorrow. Would continue PPI, at least 40 mg daily of Protonix or similar agent. Await biopsy results and will follow with the patient in GI clinic in several weeks. At some point, a gastric emptying scan may be beneficial and this will be arranged in the outpatient setting. All questions answered.
== END 2017-06-08 17:00 | disposition home or self-care (01) | DRG 690 ==
LOC: EDBD 11:53 → C.EDA 11:54 → C.2E 15:24 → ENRESERV 15:36
PROVIDERS: ADMIT Internal Medicine; ATTEND Internal Medicine
PROC: 0DB68ZX Excision of Stomach, Via Natural or Artificial Opening Endoscopic, Diagnostic (ICD-10-PCS; principal; 2017-06-07 13:37)
PROC: 0D748ZZ Dilation of Esophagogastric Junction, Via Natural or Artificial Opening Endoscopic (ICD-10-PCS; principal; 2017-06-07 13:37)
DX: N39.0 Urinary tract infection, site not specified (principal); E87.0 Hyperosmolality and hypernatremia; Z82.49 Family history of ischemic heart disease and other diseases of the circulatory system; Z88.5 Allergy status to narcotic agent; I25.10 Atherosclerotic heart disease of native coronary artery without angina pectoris; E86.0 Dehydration; E87.6 Hypokalemia; R13.10 Dysphagia, unspecified; F41.9 Anxiety disorder, unspecified; I10 Essential (primary) hypertension; R11.10 Vomiting, unspecified

== ENCOUNTER 2019-10-16 10:21 | Inpatient (IN) ==
[2019-10-16 10:51] LABS: Basophils # (auto) 0.05 K/uL (0-0.2); Basophils % (auto) 0.4 %; Eosinophils # (auto) 0.22 K/uL (0-0.5); Eosinophils % (auto) 1.7 %; Hematocrit (blood only) 39.6 % (37-47); Hemoglobin 13.6 g/dL (12.0-16.0); Immature Granulocytes # (auto) 0.05 K/uL (0.00-0.02); Immature Granulocytes % (auto) 0.4 %; Lymphocytes # (auto) 1.65 K/uL (1.2-3.4); Lymphocytes % (auto) 12.9 %; Mean Corpuscular Hemoglobin 28.2 pg (25-34); Mean Corpuscular Hgb Conc 34.3 g/dL (32-36); Mean Platelet Volume 8.9 fL (7.4-10.4); Monocytes # (auto) 1.13 K/uL (0.11-0.59); Monocytes % (auto) 8.9 %; Neutrophils # (auto) 9.66 K/uL (1.4-6.5); Neutrophils % (auto) 75.7 %; Platelet Count 373 K/uL (130-400); RDW Coefficient of Variation 13.9 % (11.5-14.5); RDW Standard Deviation 41.8 fL (36.4-46.3); Red Blood Count 4.83 M/uL (4.2-5.4); White Blood Count 12.76 K/uL (4.8-10.8)
--- NOTE | 2019-10-16 10:51 | Emergency Department Note ---
Impression & Plan Pulmonary embolism, Chest pain, Pneumonia ED Provider Note NAME: MIGUEL ROSALES AGE: 68 SEX: F : 1950 ARRIVES VIA: Walk-In INFORMANT: Patient, ED PROVIDER(S): Raymond Duffy DO CHIEF COMPLAINT: Chest pain HPI: The patient is a 68-year-old female who presented to the emergency department for an evaluation of cough and difficulty breathing as well as chest pain. The patient states that her symptoms began approximately 3 weeks ago. She started noticing a cough. She states the cough was not overly productive. She states that she started to notice difficulty breathing. She started having worsening difficulty breathing and called her primary care physician. She was not seen at her primary care physician's office but was sent for a COVID-19 swab which reportedly was negative approximately 10 days ago. She states that she then started to notice right upper quadrant pain as well as right shoulder pain. She states she has right lower chest pain which radiates into her right neck and her right jaw. She states the symptoms are significantly worsened with any ambulation. She denies having any nausea or vomiting. She denies having any rectal bleeding. She has noticed low-grade fever at home. The patient states he is taken no medication for pain. She states this chest pain is worsened with movement as well as breathing. She denies having any lower extremity swelling or pain. ROS: See above HPI for pertinent positives & negatives. A total of 10 systems reviewed and were otherwise negative. PAST MEDICAL HISTORY: See Below PAST SURGICAL HISTORY: See Below FAMILY HISTORY: See Below SOCIAL HISTORY: See Below HOME MEDICATIONS: See Below ALLERGIES: See Below VITALS: See Below PHYSICAL EXAMINATION: GENERAL: The patient is awake and alert. She is somewhat anxious appearing and appears to be uncomfortable. EYES: The conjunctivae are clear. The pupils are round and reactive. EARS, NOSE, MOUTH AND THROAT: The nose is without any evidence of any deformity. Mucous membranes are moist. Tongue is midline. NECK: The neck is nontender and supple. RESPIRATORY: Splinting respirations were noted. Lung sounds were clear. CARDIOVASCULAR: Regular rate and rhythm noted there no murmurs rubs or gallops normal S1 normal S2. GASTROINTESTINAL: The abdomen is mildly distended but soft. There is no specific guarding rigidity appreciated. MUSCULOSKELETAL/EXTREMITIES: There is no evidence of gross deformity full range of motion is noted in the hips and shoulders. SKIN: There is no obvious evidence of any rash. No calf tenderness was elicited. NEUROLOGIC: Patient is awake alert and oriented x3. MEDICAL DECISION MAKING: The patient is a 68-year-old female who presented to the emergency department for an evaluation of 3 weeks of cough and chest pain. The patient initially called her primary care physician but was sent for a COVID test. When the cover test was returned negative she was told that this was likely bronchitis. She was not evaluated by the primary care physician. Today she started having worsening symptoms including chest pain which was worsened over the last 3 days. The patient's EKG does not show significant ischemic changes compared to previous but her d-dimer was elevated. She had noted infiltrates on chest x- ray. For this reason CT of the chest was obtained to evaluate for pulmonary venous thromboembolic disease. I discussed the patient's laboratory and radiographic studies with her. She was treated with IV antibiotics in the emergency department. She was also treated with IV pain medication. She was feeling somewhat improved on subsequent reevaluation. I discussed her case with the on-call [facility] hospitalist group. They have agreed to evaluate the patient in the emergency department for further management and disposition. The patient was started on heparin in the emergency department. Triage Nursing notes reviewed. Prior medical records reviewed Vital Signs: reviewed and remarkable for elevated blood pressure. Differential diagnosis: Cardiac ischemia, aortic dissection, pulmonary embolism, pneumothorax, pneumonia, pericarditis, myocarditis, esophageal rupture, GERD, cholecystitis, pancreatitis, musculoskeletal, as well as other pathologies. ER treatment provided: See below Diagnostics interpreted by me: ECG: EKG was obtained in the emergency department. My interpretation is normal sinus rhythm at 86 bpm. There is no ectopy. Low lateral ST depressions were noted. This was compared to a tracing from April 282018. The lateral ch anges appear new compared to the earlier tracing. Otherwise no specific changes were noted. A second EKG was obtained in the emergency department. My interpretation is normal sinus rhythm at 80 bpm. There is no ectopy. There is no acute ST segment abnormalities noted. This was compared to the earlier tracing. A resolution of the previously noted ST segment abnormalities was noted. Cardiac Monitoring: An order was placed for continuous cardiac monitoring. The monitor shows a rate of 85 with sinus rhythm. Laboratory studies: As stated above and show below. Imaging studies: See below Consultation(s): 1300: I discussed this case with Dr. Dumont [facility] to evaluate the patient in the emergency department for further management and disposition. ED COURSE: Procedures: none PDMP:reviewed and no issues Critical Care: I have personally spent greater than 45 minutes of critical care time in the direct management of this patient. This includes bedside care, interpretation of diagnostic studies, and testing, discussion with consultants, patient, and family members, and other required patient management activities. This 45 minutes is in excess of all separately billable procedures. Past Med/Surg History Medical History Anxiety Anxiety disorder, unspecified Balance problem NO DEFINITIVE DX= PCP MONITORING; PLAN FOR FUTURE NEURO REFERRAL Borderline personality disorder Chronic pain of left knee Depression Dyspnea GERD (gastroesophageal reflux disease) CONTROLLED History of blood transfusion S/P CHILDBIRTH History of endometriosis HTN (hypertension) Hyperlipidemia Hyperlipidemia, unspecified Hypokalemia LAMBERTO (iron deficiency anemia) Idiopathic scoliosis Iron deficiency anemia, unspecified Lumbago Major depressive disorder, single episode, unspecified Obesity Panic attacks Panic disorder Premature ventricular contractions (PVCs) (VPCs) Reactive airway disease Restless leg Restless legs syndrome Tremor Weakness generalized Surgical History History of bladder suspension procedure History of cardiac cath X2; 15 YEARS AGO= NO STENTS History of hernia repair History of surgery ENDOMETRIOMA REMOVAL + PARTIAL UNILATERAL OOPHORECTOMY + APPENDECTOMY History of surgical removal of ganglion cyst LEFT WRIST History of tooth extraction S/p bilateral blepharoplasty Status post Hank fundoplication Family History Grandmother (Paternal) Family hx of colon cancer Grandmother (Maternal) Family hx of colon cancer Social History Smoking Status: Never smoker Second Hand Exposure: Yes (as a child); Hx Alcohol Use: No Hx Substance Use: Yes Substance Use Type Other:: HX BENZODIAZEPINE ABUSE PER RECORDS Preferred Language: Montserratian Communication Ability: Effective Therapist Respiratory Required: No Beliefs That Will Affect Care: None Current Living Situation: Spouse Feels Safe at Home: Yes Allergies Allergies Allergy/AdvReac Type Severity Reaction Status Date / Time nitroglycerin Allergy Severe PRURITIS, Verified 03/09/19 09:45 HEADACHE, VOMITING latex Allergy Mild RASH Verified 03/09/19 09:45 potassium chloride AdvReac Mild "DID NOT Verified 03/09/19 09:45 TOLERATE" WITH IV Opioid Analgesics AdvReac Intermediate "VERY Uncoded 03/09/19 09:45 SENSITIVE" N/V Home Meds Home Medications Medication Instructions Recorded Confirmed fluoxetine 80 mg PO QAM 02/08/18 11/29/18 levalbuterol tartrate 2 puff INHALATION Q6 PRN 02/08/18 11/29/18 ondansetron HCl 4 mg PO TID PRN 02/08/18 11/29/18 pantoprazole 40 mg PO QPM 02/08/18 11/29/18 valsartan 160 mg PO QAM 02/08/18 11/29/18 ropinirole 4 mg PO HS 07/07/18 11/29/18 Previous Rx's Medication Instructions Recorded primidone 50 mg tablet 50 mg PO TID 30 Days #90 tab 05/15/19 Results & Data (ED) Vital Signs Vital Signs - 24 hr 10/16/19 10:09 10/16/19 10:25 10/16/19 10:38 Temperature 36.8 C Temperature Source Oral Pulse Rate 84 91 H Pulse Rate from SpO2 Sensor Pulse Rhythm Regular Pulse Strength Normal Respiratory Rate 24 24 Respiratory Effort / Characteristics Non-Labored Spontaneous Respiratory Depth Normal Respiratory Pattern Regular Blood Pressure 147/87 H 167/95 H Blood Pressure Mean 100 119 Blood Pressure Position Sitting Pulse Oximetry 95 Oxygen Delivery Method Room Air Nasal Cannula Oxygen Flow Rate 2 Sepsis Recent Fever Within 48 Hours No Sepsis New/Unexplained Change in Mental Status No Sepsis Action Taken by Nursing No Action Required 10/16/19 10:43 10/16/19 11:00 10/16/19 11:30 Temperature Temperature Source Pulse Rate 83 78 79 Pulse Rate from SpO2 Sensor Pulse Rhythm Pulse Strength Respiratory Rate 20 21 25 H Respiratory Effort / Characteristics Respiratory Depth Respiratory Pattern Blood Pressure Blood Pressure Mean Blood Pressure Position Pulse Oximetry Oxygen Delivery Method Oxygen Flow Rate Sepsis Recent Fever Within 48 Hours Sepsis New/Unexplained Change in Mental Status Sepsis Action Taken by Nursing 10/16/19 11:40 10/16/19 12:00 10/16/19 12:37 Temperature Temperature Source Pulse Rate 85 72 79 Pulse Rate from SpO2 Sensor 72 78 Pulse Rhythm Pulse Strength Respiratory Rate 15 21 Respiratory Effort / Characteristics Respiratory Depth Respiratory Pattern Blood Pressure 159/119 H 163/82 H Blood Pressure Mean 139 92 Blood Pressure Position Pulse Oximetry 96 93 Oxygen Delivery Method Oxygen Flow Rate Sepsis Recent Fever Within 48 Hours Sepsis New/Unexplained Change in Mental Status Sepsis Action Taken by Detention Medications Current Medication List: was personally reviewed by me Laboratory Data Attestation: I reviewed the patient's lab results. Result diagrams: 10/16/19 10:40 10/16/19 10:40 Lab Results 10/16/19 10/16/19 10/16/19 Range/Units 10:40 10:40 10:40 WBC 12.76 H (4.8-10.8) K/uL RBC 4.83 (4.2-5.4) M/uL Hgb 13.6 (12.0-16.0) g/dL Hct 39.6 (37-47) % MCV 82.0 (80-100) fL MCH 28.2 (25-34) pg MCHC 34.3 (32-36) g/dL RDW Std Deviation 41.8 (36.4-46.3) fL RDW Coeff of Ldai 13.9 (11.5-14.5) % Plt Count 373 (130-400) K/uL MPV 8.9 (7.4-10.4) fL Immature Gran % (Auto) 0.4 % Neut % (Auto) 75.7 % Lymph % (Auto) 12.9 % Atkinson % (Auto) 8.9 % Eos % (Auto) 1.7 % Baso % (Auto) 0.4 % Neut # (Auto) 9.66 H (1.4-6.5) K/uL Lymph # (Auto) 1.65 (1.2-3.4) K/uL Atkinson # (Auto) 1.13 H (0.11-0.59) K/uL Eos # (Auto) 0.22 (0-0.5) K/uL Baso # (Auto) 0.05 (0-0.2) K/uL Immature Gran # (Auto) 0.05 H (0.00-0.02) K/uL PT 11.0 (9.0-12.0) Seconds INR 1.0 (0.9-1.1) APTT 25.6 (21.0-31.0) Seconds PTT Ratio 0.9 D-Dimer (0-500) ug/L FEU Sodium 129 L (136-145) mmol/L Potassium 3.5 (3.5-5.1) mmol/L Chloride 94 L (98-107) mmol/L Carbon Dioxide 24 (21-32) mmol/L Anion Gap 11.0 (3-11) BUN 12 (7-18) mg/dl Creatinine 0.95 (0.6-1.2) mg/dl Est Cr Clr Drug Dosing 56.0 ml/min Est GFR ( Amer) 70.3 Est GFR (Non-Af Amer) 60.7 BUN/Creatinine Ratio 12.6 (10-20) Glucose 119 H (70-99) mg/dl Lactate (0.4-2.0) mmol/L Calcium 8.9 (8.5-10.1) mg/dl Magnesium 1.9 (1.8-2.4) mg/dl Total Bilirubin 0.6 (0.2-1) mg/dl AST 17 (15-37) U/L ALT 20 (12-78) U/L Alkaline Phosphatase 162 H (45-117) U/L Troponin I < 0.015 (0-0.045) ng/ml Total Protein 8.1 (6.4-8.2) gm/dl Albumin 3.7 (3.4-5.0) gm/dl Globulin 4.4 H (2.5-4.0) gm/dl Albumin/Globulin Ratio 0.8 L (0.9-2) Lipase 94 (73-393) U/L COVID-19 Eval Order COVID-19 PCR (Negative) 10/16/19 10/16/19 10/16/19 Range/Units 11:37 11:37 12:12 WBC (4.8-10.8) K/uL RBC (4.2-5.4) M/uL Hgb (12.0-16.0) g/dL Hct (37-47) % MCV (80-100) fL MCH (25-34) pg MCHC (32-36) g/dL RDW Std Deviation (36.4-46.3) fL RDW Coeff of Ladi (11.5-14.5) % Plt Count (130-400) K/uL MPV (7.4-10.4) fL Immature Gran % (Auto) % Neut % (Auto) % Lymph % (Auto) % Atkinson % (Auto) % Eos % (Auto) % Baso % (Auto) % Neut # (Auto) (1.4-6.5) K/uL Lymph # (Auto) (1.2-3.4) K/uL Atkinson # (Auto) (0.11-0.59) K/uL Eos # (Auto) (0-0.5) K/uL Baso # (Auto) (0-0.2) K/uL Immature Gran # (Auto) (0.00-0.02) K/uL PT (9.0-12.0) Seconds INR (0.9-1.1) APTT (21.0-31.0) Seconds PTT Ratio D-Dimer 1480 H* (0-500) ug/L FEU Sodium (136-145) mmol/L Potassium (3.5-5.1) mmol/L Chloride (98-107) mmol/L Carbon Dioxide (21-32) mmol/L Anion Gap (3-11) BUN (7-18) mg/dl Creatinine (0.6-1.2) mg/dl Est Cr Clr Drug Dosing ml/min Est GFR ( Amer) Est GFR (Non-Af Amer) BUN/Creatinine Ratio (10-20) Glucose (70-99) mg/dl Lactate 0.9 (0.4-2.0) mmol/L Calcium (8.5-10.1) mg/dl Magnesium (1.8-2.4) mg/dl Total Bilirubin (0.2-1) mg/dl AST (15-37) U/L ALT (12-78) U/L Alkaline Phosphatase (45-117) U/L Troponin I (0-0.045) ng/ml Total Protein (6.4-8.2) gm/dl Albumin (3.4-5.0) gm/dl Globulin (2.5-4.0) gm/dl Albumin/Globulin Ratio (0.9-2) Lipase (73-393) U/L COVID-19 Eval Order Covid19 Done at [facility] COVID-19 PCR (Negative) 10/16/19 Range/Units 12:12 WBC (4.8-10.8) K/uL RBC (4.2-5.4) M/uL Hgb (12.0-16.0) g/dL Hct (37-47) % MCV (80-100) fL MCH (25-34) pg MCHC (32-36) g/dL RDW Std Deviation (36.4-46.3) fL RDW Coeff of Ladi (11.5-14.5) % Plt Count (130-400) K/uL MPV (7.4-10.4) fL Immature Gran % (Auto) % Neut % (Auto) % Lymph % (Auto) % Atkinson % (Auto) % Eos % (Auto) % Baso % (Auto) % Neut # (Auto) (1.4-6.5) K/uL Lymph # (Auto) (1.2-3.4) K/uL Atkinson # (Auto) (0.11-0.59) K/uL Eos # (Auto) (0-0.5) K/uL Baso # (Auto) (0-0.2) K/uL Immature Gran # (Auto) (0.00-0.02) K/uL PT (9.0-12.0) Seconds INR (0.9-1.1) APTT (21.0-31.0) Seconds PTT Ratio D-Dimer (0-500) ug/L FEU Sodium (136-145) mmol/L Potassium (3.5-5.1) mmol/L Chloride (98-107) mmol/L Carbon Dioxide (21-32) mmol/L Anion Gap (3-11) BUN (7-18) mg/dl Creatinine (0.6-1.2) mg/dl Est Cr Clr Drug Dosing ml/min Est GFR ( Amer) Est GFR (Non-Af Amer) BUN/Creatinine Ratio (10-20) Glucose (70-99) mg/dl Lactate (0.4-2.0) mmol/L Calcium (8.5-10.1) mg/dl Magnesium (1.8-2.4) mg/dl Total Bilirubin (0.2-1) mg/dl AST (15-37) U/L ALT (12-78) U/L Alkaline Phosphatase (45-117) U/L Troponin I (0-0.045) ng/ml Total Protein (6.4-8.2) gm/dl Albumin (3.4-5.0) gm/dl Globulin (2.5-4.0) gm/dl Albumin/Globulin Ratio (0.9-2) Lipase (73-393) U/L COVID-19 Eval Order COVID-19 PCR NEGATIVE (Negative) Administered Medications Fentanyl Citrate (Fentanyl Citrate 100 Mcg/2 Ml Vial) 50 mcg IV Q15M PRN PRN Reason: Pain Stop: 10/30/19 11:39 Last Admin: 10/16/19 11:44 Dose: 50 mcg Documented by: [id number] Discontinued Medications Ioversol (Optiray 320 125ml) 119 ml IV ONCE ONE Stop: 10/16/19 12:31 Last Admin: 10/16/19 12:33 Dose: 119 ml Documented by: [id number] Ondansetron HCl (Ondansetron Inj 2 Mg/Ml 2 Ml Vial) 4 mg IV NOW STA Stop: 10/16/19 11:41 Last Admin: 10/16/19 11:44 Dose: 4 mg Documented by: [id number] Imaging Data Radiologist's Impression: CT ANGIOGRAM OF THE CHEST; CT SCAN OF THE ABDOMEN AND PELVIS WITH IV CONTRAST CLINICAL HISTORY: Atypical chest pain. Right upper quadrant abdominal pain. COMPARISON STUDY: Chest CT dated 12/30/2014. TECHNIQUE: Following the IV administration of 119 of Optiray 320, CT angiogram of the chest is performed from the upper abdomen to the thoracic inlet utilizing the pulmonary embolus protocol. Images are reviewed in the axial, sagittal, coronal planes. 3-D MIPS images are created and assessed. Subsequently, CT scan of the abdomen and pelvis was performed from the lung bases to the proximal femora. Images are reviewed in the axial, sagittal, and coronal planes. IV contrast was administered without complication. A dose lowering technique was utilized adhering to the principles of ALARA. The examination is degraded by streak artifact from the right arm which could not be elevated above the chest or abdomen. There is also motion artifact. CT DOSE: 1625.55 mGycm FINDINGS: CHEST: Thyroid: Imaged portions of the thyroid gland are normal in size and attenuation. Thoracic aorta: There is atherosclerotic calcification of the thoracic aorta, which is normal in caliber and demonstrates standard 3-vessel arch anatomy. No dissection is seen. Pulmonary vasculature: The pulmonary trunk is normal in caliber. There is pulmonary embolus within the distal right main pulmonary artery. This extends into the right upper and right lower lobar pulmonary arteries. Segmental and subsegmental pulmonary emboli are present within branches of the right upper, middle, and lower lobes. Segmental and subsegmental pulmonary emboli are also seen within branches of the left upper and left lower lobe pulmonary arteries. Evaluation of the peripheral branches is degraded by motion artifact. Heart: The heart is normal in size noting trace pericardial effusion. Lungs and pleural spaces: Evaluation of the lung parenchyma is degraded by motion artifact. There is volume loss in the right lung with atelectasis at the right lung base and mild hyperinflation of the left lung. There is trace right pleural effusion. The trachea and central airways are clear. Subpleural opacities are noted at the right lung base. Additional foci of scarring are seen throughout the right lung. Mediastinum: There is no mediastinal lymphadenopathy. Josie: Clear. Axillae: There is no axillary lymphadenopathy. Bony thorax: The skeletal structures are osteopenic. Degenerative change and hyperkyphosis is noted throughout the thoracic spine. Arthritic change is seen in the shoulders. No lytic or blastic lesions are identified. ABDOMEN AND PELVIS: Liver: The contrast-enhanced liver is normal in size, contour, and attenuation. There is no intrahepatic or ductal dilatation. The hepatic veins and portal veins are patent. Gallbladder: Unremarkable. Spleen: Normal in size and attenuation. Pancreas: Unremarkable. Adrenal glands: Nodular thickening of the adrenal glands is similar to the [address] Kidneys: The contrast enhanced kidneys demonstrate cortical atrophy and are without hydronephrosis. The kidneys enhance symmetrically. A 2 cm cyst arises from the lower pole on the left. Abdominal vasculature: The abdominal aorta is normal in course and caliber noting moderate atherosclerotic calcification. Stomach and bowel: A small hiatal hernia is noted. Fundoplication change is suggested at the fundus. There is mild colonic diverticulosis without CT evidence of acute diverticulitis. No bowel obstruction is seen. The cecum is located in the left lower quadrant. The appendix is not clearly visualized. Peritoneum: There is no intraperitoneal free air or abdominal ascites. Lymphadenopathy: None. Pelvic viscera: The bladder is normal as visualized. The endometrium appears significantly thickened for age measuring up to 1.5 cm. No adnexal lesion is seen. Skeletal structures: The skeletal structures are osteopenic. There is moderate lumbosacral spondylosis. No lytic or blastic lesions are seen. IMPRESSION: 1. Streak and motion degraded examination. 2. Bilateral pulmonary embolus as above. 3. Trace right pleural effusion. 4. Subpleural opacities are seen at the right lung base and there is volume loss in the right lung. This is nonspecific and could represent atelectasis, a mild infectious/inflammatory pneumonitis, and/or possibly developing pulmonary infarct. Clinical correlation will be required. 5. No acute infectious or inflammatory findings are identified in the abdomen or pelvis. 6. The endometrium appears significantly thickened and abnormal for age measuring up to 1.5 cm. Nonemergent gynecology follow-up and pelvic ultrasound is recommended for further assessment. 7. Additional findings as above. ACT 112: Negative or not required by law. Electronically signed by: Dennys Fontenot M.D. 10/16/2019 12:52 PM Dictated: 10/16/19 1239 Transcribed: 10/16/19 1239 SINGLE VIEW CHEST CLINICAL HISTORY: Dyspnea. FINDINGS: An AP, portable, upright chest radiograph is compared to study dated 04/28/2018 and correlated with chest CT dated 12/30/2014. The examination is mildly degraded by portable technique and patient rotation. The heart is mildly enlarged noting atherosclerotic calcification of the thoracic aorta. The pulmonary vasculature is noncongested. Chronic interstitial thickening is similar to previous. Airspace opacities are noted at both lung bases. No air space consolidation or large pleural effusion is identified. No pneumothorax is seen. The skeletal structures are osteopenic. The bony thorax is grossly intact. Calcific tendinopathy is noted in left shoulder. IMPRESSION: Airspace opacities are noted at both lung bases an likely represent scarring/atelectasis. Correlate clinically for evidence of a superimposed infectious/inflammatory pneumonitis. ACT 112: Negative or not required by law. Electronically signed by: Dennys Fontenot M.D. 10/16/2019 10:59 AM Dictated: 10/16/19 1056 Transcribed: 10/16/19 1056 Blood Pressure Blood Pressure Findings: Elevated blood pressure Blood Pressure Disposition: further management by hospitalist Discharge Plan Visit Data Chief Complaint: Shortness of Breath/Dyspnea Stated Complaint: SOB ED Provider: Raymond Duffy Discharge Problem: Pulmonary embolism, Chest pain, Pneumonia Patient Disposition: Being Evaluated by Hospitalist Condition: Good Forms Stand Alone Forms: My [facility] Medical Prescriptions Prescriptions: No Action primidone 50 mg tablet 50 mg PO TID 30 Days Qty: 90 RF: 5 fluoxetine 40 mg capsule 80 mg PO QAM RF: 0 ondansetron HCl 4 mg tablet 4 mg PO TID PRN (Reason: Nausea) RF: 0 pantoprazole 40 mg tablet,delayed release (DR/EC) 40 mg PO QPM RF: 0 valsartan 160 mg tablet 160 mg PO QAM RF: 0 levalbuterol tartrate 45 mcg/actuation HFA aerosol inhaler 2 puff Inhalation Q6 PRN (Reason: Shortness Of Breath Or Wheezing) RF: 0 ropinirole 4 mg Tablet 4 mg PO HS RF: 0 Referrals Referrals: Cierra Lincoln MD [Primary Care Provider] - Discharge Problem: Pulmonary embolism Qualifiers: Pulmonary embolism type: unspecified Chronicity: acute Acute cor pulmonale presence: unspecified Qualified Code(s): I26.99 - Other pulmonary embolism without acute cor pulmonale Chest pain Qualifiers: Chest pain type: unspecified Qualified Code(s): R07.9 - Chest pain, unspecified Pneumonia Qualifiers: Pneumonia type: due to unspecified organism Laterality: right Lung location: lower lobe of lung Qualified Code(s): J18.9 - Pneumonia, unspecified organism
--- NOTE | 2019-10-16 11:00 | XRay Report ---
SINGLE VIEW CHEST CLINICAL HISTORY: Dyspnea. FINDINGS: An AP, portable, upright chest radiograph is compared to study dated 04/28/2018 and correlate d with chest CT dated 12/30/2014. The examination is mildly degraded by portable technique and patient rotation. The heart is mildly enlarged noting atherosclerotic calcification of the thoracic aorta. The pulmonary vasculature is noncongested. Chronic interstitial thickening is similar to previous. A irspace opacities are noted at both lung bases. No airspace consolidation or large pleural effusion i s identified. No pneumothorax is seen. The skeletal structures are osteopenic. The bony thorax is je ssly intact. Calcific tendinopathy is noted in left shoulder. IMPRESSION: Airspace opacities are noted at both lung bases an likely represent scarring/atelectasis. Correlate clinically for evidence of a superimposed infectious/inflammatory pneumonitis. ACT 112: Negative or not required by law. Electronically signed by: Dennys Fontenot M.D. 10/16/2019 10:59 AM
[2019-10-16 11:06] LABS: Partial Thromboplastin Ratio 0.9; Partial Thromboplastin Time 25.6 Seconds (21.0-31.0)
[2019-10-16 11:16] LABS: Alanine Aminotransferase 20 U/L (12-78); Albumin Level 3.7 gm/dl (3.4-5.0); Aspartate Aminotransferase 17 U/L (15-37); BUN Creatinine Ratio 12.6 (10-20); Blood Urea Nitrogen 12 mg/dl (7-18); Calcium 8.9 mg/dl (8.5-10.1); Carbon Dioxide 24 mmol/L (21-32); Chloride 94 mmol/L (98-107); Est GFR (African American) 70.3; Est GFR (Non-African American) 60.7; Glucose 119 mg/dl (70-99); Lipase 94 U/L (73-393); Magnesium 1.9 mg/dl (1.8-2.4); Potassium 3.5 mmol/L (3.5-5.1); Sodium 129 mmol/L (136-145)
[2019-10-16 11:21] LABS: Albumin Globulin Ratio 0.8 (0.9-2); Alkaline Phosphatase 162 U/L (45-117); Bilirubin,Total 0.6 mg/dl (0.2-1); Globulin 4.4 gm/dl (2.5-4.0); Total Protein 8.1 gm/dl (6.4-8.2); Troponin I < 0.015 ng/ml (0-0.045)
[2019-10-16] MEDS ORDERED: fentaNYL citrate 100 MCG/2 ML VIAL IV PRN (11:40)
[2019-10-16] MEDS ORDERED: ONDANSETRON INJ 2 MG/ML 2 ML VIAL IV STA (11:40)
[2019-10-16 12:28] LABS: D Dimer 1480 ug/L FEU (0-500)
[2019-10-16] MEDS ORDERED: OPTIRAY 320 125ml IV ONE (12:30)
[2019-10-16] MEDS ORDERED: PIPERACILLIN/TAZOBACTAM 4.5 GM/120 ML BAG IV ONE (12:54)
[2019-10-16] MEDS ORDERED: PIPERACILL/TAZOBAC CONSULT ACTIVE PRN (12:54)
--- NOTE | 2019-10-16 12:54 | CT Scan Report ---
CT ANGIOGRAM OF THE CHEST; CT SCAN OF THE ABDOMEN AND PELVIS WITH IV CONTRAST CLINICAL HISTORY: Atypical chest pain. Right upper quadrant abdominal pain. COMPARISON STUDY: Chest CT dated 12/30/2014. TECHNIQUE: Following the IV administration of 119 of Optiray 320, CT angiogram of the chest is perfor med from the upper abdomen to the thoracic inlet utilizing the pulmonary embolus protocol. Images are reviewed in the axial, sagittal, coronal planes. 3-D MIPS images are created and assessed. Subsequen tly, CT scan of the abdomen and pelvis was performed from the lung bases to the proximal femora. Imag es are reviewed in the axial, sagittal, and coronal planes. IV contrast was administered without comp lication. A dose lowering technique was utilized adhering to the principles of ALARA. The examination is degraded by streak artifact from the right arm which could not be elevated above the chest or abd omen. There is also motion artifact. CT DOSE: 1625.55 mGycm FINDINGS: CHEST: Thyroid: Imaged portions of the thyroid gland are normal in size and attenuation. Thoracic aorta: There is atherosclerotic calcification of the thoracic aorta, which is normal in ryley molly and demonstrates standard 3-vessel arch anatomy. No dissection is seen. Pulmonary vasculature: The pulmonary trunk is normal in caliber. There is pulmonary embolus within th e distal right main pulmonary artery. This extends into the right upper and right lower lobar pulmona ry arteries. Segmental and subsegmental pulmonary emboli are present within branches of the right upp er, middle, and lower lobes. Segmental and subsegmental pulmonary emboli are also seen within branche s of the left upper and left lower lobe pulmonary arteries. Evaluation of the peripheral branches is degraded by motion artifact. Heart: The heart is normal in size noting trace pericardial effusion. Lungs and pleural spaces: Evaluation of the lung parenchyma is degraded by motion artifact. There is volume loss in the right lung with atelectasis at the right lung base and mild hyperinflation of the left lung. There is trace right pleural effusion. The trachea and central airways are clear. Subpleur al opacities are noted at the right lung base. Additional foci of scarring are seen throughout the ri ght lung. Mediastinum: There is no mediastinal lymphadenopathy. Josie: Clear. Axillae: There is no axillary lymphadenopathy. Bony thorax: The skeletal structures are osteopenic. Degenerative change and hyperkyphosis is noted t hroughout the thoracic spine. Arthritic change is seen in the shoulders. No lytic or blastic lesions are identified. ABDOMEN AND PELVIS: Liver: The contrast-enhanced liver is normal in size, contour, and attenuation. There is no intrahepa tic or ductal dilatation. The hepatic veins and portal veins are patent. Gallbladder: Unremarkable. Spleen: Normal in size and attenuation. Pancreas: Unremarkable. Adrenal glands: Nodular thickening of the adrenal glands is similar to the [address] Kidneys: The contrast enhanced kidneys demonstrate cortical atrophy and are without hydronephrosis. T he kidneys enhance symmetrically. A 2 cm cyst arises from the lower pole on the left. Abdominal vasculature: The abdominal aorta is normal in course and caliber noting moderate atheroscle rotic calcification. Stomach and bowel: A small hiatal hernia is noted. Fundoplication change is suggested at the fundus. There is mild colonic diverticulosis without CT evidence of acute diverticulitis. No bowel obstructio n is seen. The cecum is located in the left lower quadrant. The appendix is not clearly visualized. Peritoneum: There is no intraperitoneal free air or abdominal ascites. Lymphadenopathy: None. Pelvic viscera: The bladder is normal as visualized. The endometrium appears significantly thickened for age measuring up to 1.5 cm. No adnexal lesion is seen. Skeletal structures: The skeletal structures are osteopenic. There is moderate lumbosacral spondylosi s. No lytic or blastic lesions are seen. IMPRESSION: 1. Streak and motion degraded examination. 2. Bilateral pulmonary embolus as above. 3. Trace right pleural effusion. 4. Subpleural opacities are seen at the right lung base and there is volume loss in the right lung. T his is nonspecific and could represent atelectasis, a mild infectious/inflammatory pneumonitis, and/o r possibly developing pulmonary infarct. Clinical correlation will be required. 5. No acute infectious or inflammatory findings are identified in the abdomen or pelvis. 6. The endometrium appears significantly thickened and abnormal for age measuring up to 1.5 cm. Nonem ergent gynecology follow-up and pelvic ultrasound is recommended for further assessment. 7. Additional findings as above. ACT 112: Negative or not required by law. Electronically signed by: Dennys Fontenot M.D. 10/16/2019 12:52 PM
--- NOTE | 2019-10-16 13:10 | Electrocardiogram Report ---
Test Reason : Blood Pressure : / mmHG Vent. Rate : 086 BPM Atrial Rate : 086 BPM P-R Int : 166 ms QRS Dur : 092 ms QT Int : 414 ms P-R-T Axes : 032 015 024 degrees QTc Int : 495 ms Normal sinus rhythm Nonspecific ST abnormality Prolonged QT Abnormal ECG When compared with ECG of 28-APR-2018 15:10, Premature ventricular complexes are no longer Present Confirmed by Raymond Downs ([id number]) on 10/16/2019 1:10:26 PM Referred By: SELF Confirmed By:Raymond Downs
--- NOTE | 2019-10-16 13:15 | History & Physical Report ---
Date of Service October 16, 2019 Assessment & Plan (1) Pulmonary embolism: Unprovoked. IV heparin standard with bolus (2) Pneumonia: Possible. Will cover with antibiotics given degree of consolidation on CT I do not feel she requires pseudomonas coverage however and will continue treatment with IV Unasyn to be stepped down to Augmentin + azithromycin once improving COVID-19 negative, isolation precautions removed Procalcitonin negative, will repeat in AM to assess continued need for antibiotics (3) Chest pain: Pleuritic pain secondary to PE above Use acetaminophen 1st line, then oxycodone. Toradol if oxycodone inneffective or having side effects to this - give prior Hank's Fundoplication and concurrent anticoagulation will need to monitor for worsening epigastric pain. (4) Abnormal CT scan, pelvis: US pelvis to assess endometrial lining given if cancerous would make her PEs provoked therefore justifying further inpatient workup. If suspected can cerous would also guide anticoagulation choice. (5) Restless legs syndrome: Continue ropinirole 4 mg p.o. at bedtime (6) HTN (hypertension): Continue amlodipine 10 mg p.o. every morning, valsartan 320 mg p.o. every morning, clonidine as needed (7) Hyponatremia: IV normal saline for hydration and correction of sodium. Would recommend against hydrochlorothiazide use. Repeat BMP in a.m, if not improving consider SIADH. (8) GERD (gastroesophageal reflux disease): Continue pantoprazole 40 mg p.o. at bedtime (9) Essential tremor: Continue primidone 50 mg p.o. 3 times daily (10) Peripheral neuropathy: Notable history of this been on any medication (11) Anxiety disorder, unspecified: Continue fluoxetine 80 mg p.o. every morning, hydroxyzine as needed (12) Hyperlipidemia, unspecified: Continue simvastatin 20 mg p.o. at bedtime Admission and Anticipated Discharge Date Admission Date: 10/16/2019 History of Present Illness Chief Complaint: Shortness of breath and chest pain Primary Care Provider: Cierra Lincoln MD Brook Alexis is a 68-year-old female who presents to the ER with shortness of breath and right sided chest pain. She has a chronic cough which is been present for years secondary to reactive airway disease and reflux. However 3 weeks ago she had slow progression of worsening cough which was originally treated with [id number] medications for bronchitis. She used her inhaler without much benefit. Over the last 3 days she has had progressively worse right-sided chest pain below her ribs with radiation to her clavicle and jaw. Better when lying on her right side and she is much more comfortable after fentanyl given in the ER. Is a sharp and aching pain worse on inspiration and exertion. She feels less short of breath since coming to the ER. No recent long-haul flights, car journeys, surgeries. She denies any leg swelling or pain in her calves. With regards to her abnormal CAT scan with thickening of uterus wall she denies any abdominal pain, bloating, vagina bleeding. Menopause at 56-57 years old abdominal pain or bloating. Her periods were regular throughout her life. Prior endometriosis which resolved after 1 surgery. . Not seen a creche attendant in a long time. Other cancer screening is up-to-date per patient recollection with prior normal colonoscopy per patient recollection 1.5 years ago. Last mammogram was unremarkable 2 years ago. Allergies Allergy/AdvReac Type Severity Reaction Status Date / Time nitroglycerin Allergy Severe PRURITIS, Verified 10/16/19 14:51 HEADACHE, VOMITING latex Allergy Mild RASH Verified 10/16/19 14:51 potassium chloride AdvReac Mild "DID NOT Verified 10/16/19 14:51 TOLERATE" WITH IV Opioid Analgesics AdvReac Intermediate "VERY Uncoded 10/16/19 14:51 SENSITIVE" N/V Home Medications Home Medications Medication Instructions Recorded Confirmed Type fluoxetine 80 mg PO QAM 02/08/18 10/16/19 History levalbuterol tartrate 2 puff INHALATION Q6 PRN 02/08/18 10/16/19 History ondansetron HCl 4 mg PO TID PRN 02/08/18 10/16/19 History pantoprazole 40 mg PO HS 02/08/18 10/16/19 History ropinirole 4 mg PO HS 07/07/18 10/16/19 History primidone 50 mg tablet 50 mg PO TID 30 Days #90 tab 05/15/19 10/16/19 Rx amlodipine 10 mg PO QAM 10/16/19 10/16/19 History clonidine HCl 0.1 mg PO BID PRN 10/16/19 10/16/19 History cyanocobalamin (vitamin B-12) 1,000 mcg IM MONTHLY 10/16/19 10/16/19 History hydrochlorothiazide 25 mg PO DAILY PRN 10/16/19 10/16/19 History hydroxyzine HCl 10 mg PO TID PRN 10/16/19 10/16/19 History simvastatin 20 mg PO HS 10/16/19 10/16/19 History valsartan 320 mg PO QAM 10/16/19 10/16/19 History Past Med/Surg History Medical History (Updated 10/17/19 @ 16:13 by Raymond Downs MD) Anxiety Anxiety disorder, unspecified Balance problem NO DEFINITIVE DX= PCP MONITORING; PLAN FOR FUTURE NEURO REFERRAL Borderline personality disorder Chronic pain of left knee Depression Dyspnea GERD (gastroesophageal reflux disease) CONTROLLED History of blood transfusion 1969' S/P CHILDBIRTH History of endometriosis HTN (hypertension) Hyperlipidemia Hyperlipidemia, unspecified Hypokalemia LAMBERTO (iron deficiency anemia) Idiopathic scoliosis Iron deficiency anemia, unspecified Lumbago Major depressive disorder, single episode, unspecified Obesity Panic attacks Panic disorder Premature ventricular contractions (PVCs) (VPCs) Reactive airway disease Restless leg Restless legs syndrome Tremor Weakness generalized Surgical History History of bladder suspension procedure History of cardiac cath X2; 15 YEARS AGO= NO STENTS History of hernia repair History of surgery ENDOMETRIOMA REMOVAL + PARTIAL UNILATERAL OOPHORECTOMY + APPENDECTOMY History of surgical removal of ganglion cyst LEFT WRIST History of tooth extraction S/p bilateral blepharoplasty Status post Hank fundoplication Family History Grandmother (Paternal) Family hx of colon cancer Grandmother (Maternal) Family hx of colon cancer Social History Smoking Status: Never smoker Second Hand Exposure: Yes (as a child); Hx Alcohol Use: No Hx Substance Use: No Preferred Language: Mosotho Communication Ability: Effective Vending Machine Technician Required: No Beliefs That Will Affect Care: None Current Living Situation: Spouse Feels Safe at Home: Yes Safety Concerns: Feels Safe At This Time Review of Systems Review of Systems: All systems reviewed & are unremarkable except as noted in HPI & below Physical Exam Constitutional: well developed, well nourished and + obese; no acute distress (While lying on her right side) Eyes: PERRL, conjunctivae normal, anicteric sclerae ENMT: external ear and nose normal, oropharynx normal Neck: trachea midline, no thyromegaly Respiratory: normal respiratory effort, + cough and able to speak in complete sentences; no respiratory distress Auscultation: + crackles (Right-sided throughout); no diminished lung sounds, no rales and no rhonchi Cardiovascular: Rate/Rhythm: regular rate and regular rhythm Heart Sounds: no murmur Vessels: no JVD Extremities: normal capillary refill and + pedal edema (Trace ankles bilaterally equal); no calf tenderness Gastrointestinal (Abdomen): normal bowel sounds, soft, nontender, no h epatosplenomegaly Musculoskeletal: no cyanosis or clubbing, extremities motor strength 5/5 Skin: no rashes, warm and dry Neurologic: moves all extremities and awake; not confused Psychiatric: A+Ox3, euthymic affect Lymphatic: no cervical or axillary lymphadenopathy Results & Data Results & Data ([facility]) Vital Signs (Past 12 Hours) Vital Signs Temp Pulse Resp BP Pulse Ox 10/16/19 12:37 79 21 163/82 H 93 10/16/19 12:00 72 15 96 10/16/19 11:40 85 159/119 H 10/16/19 11:30 79 25 H 10/16/19 11:00 78 21 10/16/19 10:43 83 20 10/16/19 10:25 36.8 C 91 H 24 167/95 H 95 10/16/19 10:09 84 24 147/87 H Diagnostic Findings SINGLE VIEW CHEST IMPRESSION: Airspace opacities are noted at both lung bases an likely represent scarring/atelectasis. Correlate clinically for evidence of a superimposed infectious/inflammatory pneumonitis. CT ANGIOGRAM OF THE CHEST; CT SCAN OF THE ABDOMEN AND PELVIS WITH IV CONTRAST IMPRESSION: 1. Streak and motion degraded examination. 2. Bilateral pulmonary embolus as above. 3. Trace right pleural effusion. 4. Subpleural opacities are seen at the right lung base and there is volume loss in the right lung. This is nonspecific and could represent atelectasis, a mild infectious/inflammatory pneumonitis, and/or possibly developing pulmonary infarct. Clinical correlation will be required. 5. No acute infectious or inflammatory findings are identified in the abdomen or pelvis. 6. The endometrium appears significantly thickened and abnormal for age measuring up to 1.5 cm. Nonemergent gynecology follow-up and pelvic ultrasound is recommended for further assessment. 7. Additional findings as above. ECG Indication: chest pain Rate (beats per minute): 80 Rhythm: normal sinus Findings: no acute ischemic change Comparison ECG Date: from (October 16, 2019) Change: no significant change Code Status & VTE Plan Code Status Full VTE Prophylaxis Plan VTE Prophylaxis will be ordered: Yes PG Care Time/CCT Total # of Minutes Spent Total Time Spent with Patient: Total time spent is greater than 50% in coordination of care (as documented) at patient's floor/unit and/or counseling patient: Coding Level of Care Code 83258 Initial Inpt Care Lvl 3 Diagnoses Pulmonary embolism I26.99 Acute cor pulmonale presence: unspecified Chronicity: acute Pulmonary embolism type: unspecified Pneumonia J18.9 Laterality: right Lung location: lower lobe of lung Pneumonia type: due to unspecified organism Chest pain R07.[address] scan, pelvis R93.5 Restless legs syndrome G25.81 HTN (hypertension) I10 Hyponatremia E87.1 GERD (gastroesophageal reflux disease) K21.9 Essential tremor G25.0 Peripheral neuropathy G62.9 Anxiety disorder, unspecified F41.9 Hyperlipidemia, unspecified E78.5 (1) Pulmonary embolism Acute cor pulmonale presence: unspecified Chronicity: acute Pulmonary embolism type: unspecified Qualified Code(s): I26.99 - Other pulmonary embolism without acute cor pulmonale (2) Pneumonia Laterality: right Lung location: lower lobe of lung Pneumonia type: due to unspecified organism Qualified Code(s): J18.9 - Pneumonia, unspecified organism
[2019-10-16] MEDS ORDERED: HEPARIN SOD 5,000 UNIT/0.5 ML VIAL ONE (13:28)
[2019-10-16] MEDS: HEPARIN SODIUM/DEXTROSE 25,000 UNITS/500 ML BAG IV SCH (14:15)
--- NOTE | 2019-10-16 15:46 | Electrocardiogram Report ---
Test Reason : Blood Pressure : / mmHG Vent. Rate : 080 BPM Atrial Rate : 080 BPM P-R Int : 176 ms QRS Dur : 092 ms QT Int : 426 ms P-R-T Axes : 021 020 019 degrees QTc Int : 491 ms Poor data quality, interpretation may be adversely affected Normal sinus rhythm Normal ECG When compared with ECG of 16-OCT-2019 10:38, No significant change was found Confirmed by Raymond Downs ([id number]) on 10/16/2019 3:46:06 PM Referred By: Cierra Lincoln Confirmed By:Raymond Downs
[2019-10-16] MEDS ORDERED: KETOROLAC TROMETHAMINE 15 MG/ML VIAL IV PRN (17:00)
[2019-10-16] MEDS ORDERED: ALUMINUM/MAGNESIUM SUSP 30 ML UDC PO PRN (17:00)
[2019-10-16] MEDS ORDERED: POLYETHYLENE (MIRALAX) 17 GM PACK PO PRN (17:00)
[2019-10-16] MEDS ORDERED: ACETAMINOPHEN 325 MG TAB PO PRN (17:00)
[2019-10-16] MEDS: SODIUM CHLORIDE 0.9% 1000ML 1,000 ML IV SCH (17:15)
[2019-10-16] MEDS ORDERED: AZITHROMYCIN 500 MG in DEXTROSE 5% 250 ML IV ONE (17:30)
[2019-10-16 19:08] LABS: Appearance Urine Clear (Clear); Bacteria Urine Automated 1+ (Negative); Bilirubin Urine Negative (Negative); Blood Urine Negative (Negative); Cast Urine Automated 0 /lpf (0-5); Color Urine Yellow; Epithelial Cell Urine Auto 20-30 /lpf (0-5); Glucose Urine UA Negative (Negative); Ketones Urine Negative (Negative); Leukocyte Esterase Urine Negative (Negative); Nitrite Urine Positive (Negative); Protein Urine Negative (Negative); RBC Urine Automated 0-4 /hpf (0-4); Specific Gravity Urine > 1.045 (1.000-1.030); Urobilinogen Urine Negative (Negative); pH Urine 6.5 (4.5-7.5)
--- NOTE | 2019-10-16 19:47 | Ultrasound Report ---
EXAMINATION: PELVIC ULTRASOUND (transabdominal and endovaginal scanning) CLINICAL HISTORY: Abnormal wall thickening of uterus on CT COMPARISON STUDY: CT scan dated 10/16/2019 FINDINGS: Following transabdominal scanning, endovaginal scanning was performed to better evaluate the endometr ium given the abnormal CT findings. The uterus was poorly visualized transabdominally. The uterus measured 6.4 x 3.9 x 5.6 cm. There is a suspected complex 1 cm nabothian gland cyst versus fibroid The endometrial stripe measured 14 mm with cystic spaces.. Neither ovary was visualized. There was no evidence of pathologic free pelvic fluid. IMPRESSION: 1. Thickened endometrium measuring 14 mm with cystic spaces. This is abnormal for age and raises the possibility of cystic hyperplasia or endometrial carcinoma. Gynecologic consultation is recommended. ACT 112: Negative or not required by law. Electronically signed by: Mohinder Moore M.D. 10/16/2019 7:46 PM
[2019-10-16] MEDS: OXYCODONE HCL IR 5 MG TAB (IMMEDIATE RELEASE) PO PRN (20:29)
[2019-10-16] MEDS: PANTOprazole 40 MG TAB PO SCH (20:29)
[2019-10-16] MEDS: SIMVASTATIN 20 MG TAB PO SCH (20:29)
[2019-10-16] MEDS: ROPINIROLE HCL 1 MG TABLET PO SCH (20:29)
[2019-10-16] MEDS: PRIMIDONE 50 MG TAB PO SCH (20:30)
[2019-10-16] MEDS: ONDANSETRON INJ 2 MG/ML 2 ML VIAL IV PRN (20:34)
[2019-10-16 20:45] LABS: Partial Thromboplastin Ratio 1.5; Partial Thromboplastin Time 41.7 Seconds (21.0-31.0)
[2019-10-16] MEDS: AMPICILLIN/SULBACTAM SOD 1,500 MG in 0.9 % SODIUM CHLORIDE 100 ML IV SCH (22:25)
[2019-10-16] MEDS ORDERED: HEPARIN IV BOLUS 3,000 UNITS in SYRINGE 0 ML IV ONE (23:32)
[2019-10-17] MEDS: SODIUM CHLORIDE 0.9% 1000ML 1,000 ML IV SCH ×4 (00:08→23:19)
[2019-10-17] MEDS: AMPICILLIN/SULBACTAM SOD 1,500 MG in 0.9 % SODIUM CHLORIDE 100 ML IV SCH ×4 (03:18→22:42)
[2019-10-17] MEDS: OXYCODONE HCL IR 5 MG TAB (IMMEDIATE RELEASE) PO PRN ×3 (03:20→20:11)
[2019-10-17] MEDS: ONDANSETRON INJ 2 MG/ML 2 ML VIAL IV PRN ×3 (03:20→20:10)
[2019-10-17 07:00] LABS: Basophils # (auto) 0.04 K/uL (0-0.2); Basophils % (auto) 0.4 %; Eosinophils # (auto) 0.28 K/uL (0-0.5); Hematocrit (blood only) 33.9 % (37-47); Hemoglobin 11.3 g/dL (12.0-16.0); Immature Granulocytes # (auto) 0.02 K/uL (0.00-0.02); Immature Granulocytes % (auto) 0.2 %; Lymphocytes # (auto) 2.34 K/uL (1.2-3.4); Lymphocytes % (auto) 25.2 %; Mean Corpuscular Hemoglobin 27.4 pg (25-34); Mean Corpuscular Hgb Conc 33.3 g/dL (32-36); Mean Corpuscular Volume 82.1 fL (80-100); Mean Platelet Volume 8.6 fL (7.4-10.4); Monocytes # (auto) 0.86 K/uL (0.11-0.59); Monocytes % (auto) 9.2 %; Neutrophils # (auto) 5.76 K/uL (1.4-6.5); Platelet Count 328 K/uL (130-400); RDW Standard Deviation 42.6 fL (36.4-46.3); Red Blood Count 4.13 M/uL (4.2-5.4)
[2019-10-17 07:11] LABS: INR 1.1 (0.9-1.1); Prothrombin Time 11.2 Seconds (9.0-12.0)
[2019-10-17 07:21] LABS: Partial Thromboplastin Ratio 2.2
[2019-10-17 07:39] LABS: BUN Creatinine Ratio 11.9 (10-20); Est GFR (African American) 104.8; Est GFR (Non-African American) 90.4
[2019-10-17] MEDS: PRIMIDONE 50 MG TAB PO SCH ×3 (07:46→20:12)
[2019-10-17] MEDS: AMLODIPINE BESYLATE 5 MG TAB PO SCH (07:47)
[2019-10-17] MEDS: AZITHROMYCIN 250 MG TAB PO SCH (07:47)
[2019-10-17] MEDS: VALSARTAN 80 MG TAB PO SCH (07:47)
[2019-10-17] MEDS: FLUOXETINE HCL 20 MG CAP PO SCH (07:47)
[2019-10-17 09:00] LABS: Calcium 8.2 mg/dl (8.5-10.1)
[2019-10-17] MEDS ORDERED: METOPROLOL TARTRATE 1 MG/ML VIAL IV STA ×3 (13:21→14:16)
[2019-10-17] MEDS: HEPARIN SODIUM/DEXTROSE 25,000 UNITS/500 ML BAG IV SCH (13:30)
[2019-10-17] MEDS: POTASSIUM CHLORIDE / WTR 10 MEQ/100 ML PLCT IV SCH ×4 (13:56→17:44)
[2019-10-17] MEDS: POTASSIUM CHLORIDE 20 MEQ TABCR PO SCH ×2 (13:56→20:12)
[2019-10-17] MEDS ORDERED: AMIODARONE / D5W 150 MG/100 ML BAG IV STA (14:09)
[2019-10-17] MEDS ORDERED: AMIODARONE IV BOLUS & DRIP IV STA (14:09)
[2019-10-17] MEDS ORDERED: AMIODARONE / D5W 360 MG/200 ML BAG IV ONE (14:09)
[2019-10-17] MEDS ORDERED: STAT IV Infusion **Titration per Protocol STA (14:09)
[2019-10-17] MEDS ORDERED: 0.2 MICRON FILTER SET 1 EA IV ONE (14:09)
[2019-10-17] MEDS ORDERED: MAGNESIUM OXIDE 400 MG TAB PO ONE (15:00)
--- NOTE | 2019-10-17 16:16 | Cardiology Consultation ---
Date of Consultation October 17, 2019 Assessment & Plan (1) PAF (paroxysmal atrial fibrillation): -the patient has converted to sinus rhythm with intravenous amiodarone. -this is her 1st and only episode according to her report. -would plan to use amiodarone for 6-8 weeks while her pulmonary status improves. (2) Pulmonary embolism: -apparently an unprovoked event. -continues on intravenous heparin at this time. -will be on long-term anticoagulation as an outpatient. (3) HTN (hypertension): -borderline control at this time. (4) Hyperlipidemia, unspecified: -continue simvastatin. History of Present Illness Attending Physician: Ion Pena History of Present Illness Mrs. Alexis is a 68-year-old female admitted yesterday with acute bilateral pulmonary emboli. The patient developed atrial fibrillation earlier today, therefore, this consultation was ordered. The patient was in her usual state of health until approximately 3 days prior to presentation. She began to note progressive shortness of breath and right-sided pleuritic chest pain. She presented to the emergency room and her evaluation revealed a pulmonary embolus within the distal right main pulmonary artery extending into the right upper right lower lobe pulmonary arteries. There also pulmonary emboli seen within the branches of the left upper and left lower lobe pulmonary arteries. Her event was felt to be unprovoked. At approximately 1:00 this afternoon, the patient had the abrupt onset of palpitations. The monitor noted atrial fibrillation with a rapid ventricular response. I spoke with Dr. Pena and we decided to start the patient on intravenous amiodarone. Fortunately, she converted to sinus rhythm at approximately 3:30 p.m.. The patient noted her palpitations to resolve. The patient has never had a prior history of atrial fibrillation. She has never been on long-term anticoagulation. The patient did have a cardiac catheterization performed back in 1999 which showed no evidence of coronary artery disease. Currently, patient is resting comfortably in bed without complaints. Past medical and surgical history 1. Hypertension 2. Hypercholesterolemia 3. Paroxysmal atrial fibrillation-September 2019 4. Reactive airways disease 5. GERD 6. Restless legs syndrome 7. Anxiety 8. Borderline personality disorder 9. Obesity 10. Essential tremor 11. Chronic anemia 12. Chronic low back pain 13. Peripheral neuropathy 14. History of endometriosis 15. Hank fundoplication 16. Unilateral oophorectomy 17. Appendectomy 18. 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 Allergies Allergy/AdvReac Type Severity Reaction Status Date / Time nitroglycerin Allergy Severe PRURITIS, Verified 10/16/19 14:51 HEADACHE, VOMITING latex Allergy Mild RASH Verified 10/16/19 14:51 potassium chloride AdvReac Mild "DID NOT Verified 10/16/19 14:51 TOLERATE" WITH IV Opioid Analgesics AdvReac Intermediate "VERY Uncoded 10/16/19 14:51 SENSITIVE" N/V Home Medications Home Medications Medication Instructions Recorded Confirmed Type fluoxetine 80 mg PO QAM 02/08/18 10/16/19 History levalbuterol tartrate 2 puff INHALATION Q6 PRN 02/08/18 10/16/19 History ondansetron HCl 4 mg PO TID PRN 02/08/18 10/16/19 History pantoprazole 40 mg PO HS 02/08/18 10/16/19 History ropinirole 4 mg PO HS 07/07/18 10/16/19 History primidone 50 mg tablet 50 mg PO TID 30 Days #90 tab 05/15/19 10/16/19 Rx amlodipine 10 mg PO QAM 10/16/19 10/16/19 History clonidine HCl 0.1 mg PO BID PRN 10/16/19 10/16/19 History cyanocobalamin (vitamin B-12) 1,000 mcg IM MONTHLY 10/16/19 10/16/19 History hydrochlorothiazide 25 mg PO DAILY PRN 10/16/19 10/16/19 History hydroxyzine HCl 10 mg PO TID PRN 10/16/19 10/16/19 History simvastatin 20 mg PO HS 10/16/19 10/16/19 History valsartan 320 mg PO QAM 10/16/19 10/16/19 History Patient History Medical History (Updated 10/17/19 @ 16:13 by Raymond Downs MD) Anxiety Anxiety disorder, unspecified Balance problem NO DEFINITIVE DX= PCP MONITORING; PLAN FOR FUTURE NEURO REFERRAL Borderline personality disorder Chronic pain of left knee Depression Dyspnea GERD (gastroesophageal reflux disease) CONTROLLED History of blood transfusion 1969' S/P CHILDBIRTH History of endometriosis HTN (hypertension) Hyperlipidemia Hyperlipidemia, unspecified Hypokalemia LAMBERTO (iron deficiency anemia) Idiopathic scoliosis Iron deficiency anemia, unspecified Lumbago Major depressive disorder, single episode, unspecified Obesity Panic attacks Panic disorder Premature ventricular contractions (PVCs) (VPCs) Reactive airway disease Restless leg Restless legs syndrome Tremor Weakness generalized Surgical History History of bladder suspension procedure History of cardiac cath X2; 15 YEARS AGO= NO STENTS History of hernia repair History of surgery ENDOMETRIOMA REMOVAL + PARTIAL UNILATERAL OOPHORECTOMY + APPENDECTOMY History of surgical removal of ganglion cyst LEFT WRIST History of tooth extraction S/p bilateral blepharoplasty Status post Hank fundoplication Family History Grandmother (Paternal) Family hx of colon cancer Grandmother (Maternal) Family hx of colon cancer Social History Smoking Status: Never smoker Second Hand Exposure: Yes (as a child); Hx Alcohol Use: No Hx Substance Use: No Preferred Language: Cuban Communication Ability: Effective 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 HEENT exam is negative. Neck is supple with full carotid upstrokes. There are no carotid bruits. Jugular venous pressure is flat at 90. There is no thyromegaly. Cardiovascular exam reveals regular rhythm with a normal S1 and S2. No S3 or murmurs are noted. Lungs are clear without rales, rhonchi, or wheezes. Abdomen is soft and nontender without bruits. Extremities reveal intact radial artery pulses bilaterally. There is no peripheral edema. Results & Data ([facility]) Vital Signs (Past 12 Hours) Vital Signs Temp Pulse Pulse Resp BP Pulse Ox 10/17/19 15:46 37.3 C 79 18 153/78 H 94 10/17/19 15:20 81 10/17/19 13:12 162/91 H 10/17/19 11:30 36.9 C 79 18 193/102 H 93 10/17/19 08:00 73 10/17/19 07:11 37.3 C 72 18 158/89 H 91 Laboratory Results CBC notes hemoglobin 11.3, crit 33.9, white count 9.3, and platelet count [id number]. Electrolytes note a sodium of 132, potassium 3.2, chloride 101, bicarb 23, BUN 8, creatinine 0.64, glucose of 106. Troponin I level is undetectable less than 0.015. Diagnostic Findings EKG notes normal sinus rhythm with a nonspecific ST abnormality. monitoring coordinator currently notes sinus rhythm. Chest x-ray showed airspace opacities and bases. CT scan of the chest is described above. PG Care Time/CCT Total # of Minutes Spent Total Time Spent with Patient: Total time spent is greater than 50% in coordination of care (as documented) at patient's floor/unit and/or counseling patient: Coding Level of Care Code 86771 Initial Inpt Care Lvl 3 Diagnoses PAF (paroxysmal atrial fibrillation) I48.0 Pulmonary embolism I26.99 Acute cor pulmonale presence: unspecified Chronicity: acute Pulmonary embolism type: unspecified HTN (hypertension) I10 Hyperlipidemia, unspecified E78.5 (1) Pulmonary embolism Acute cor pulmonale presence: unspecified Chronicity: acute Pulmonary embolism type: unspecified Qualified Code(s): I26.99 - Other pulmonary embolism without acute cor pulmonale
[2019-10-17] MEDS ORDERED: Nursing to Pharmacy Communication SCH (16:45)
[2019-10-17] MEDS ORDERED: AMIODARONE / D5W 360 MG/200 ML BAG IV SCH (20:09)
[2019-10-17] MEDS: METOPROLOL TARTRATE 25 MG TAB PO SCH (20:11)
[2019-10-17] MEDS: MAGNESIUM OXIDE 400 MG TAB PO SCH (20:11)
[2019-10-17] MEDS: ROPINIROLE HCL 1 MG TABLET PO SCH (20:13)
[2019-10-17] MEDS: SIMVASTATIN 20 MG TAB PO SCH (20:13)
[2019-10-17] MEDS: PANTOprazole 40 MG TAB PO SCH (20:13)
--- NOTE | 2019-10-17 21:13 | Hospitalist Progress Note ---
Date of Service October 17, 2019 Assessment & Plan (1) Pulmonary embolism: Unprovoked. IV heparin standard with bolus Patient will likely be discharged on eliquis. However due to new A. fib, will monitor for another day. (2) PAF (paroxysmal atrial fibrillation): Patient developed Atrial fibrillation. Likely secondary to pulmonary embolism. Patient required 3 doses of metoprolol, patient was being monitored, with the first 2 doses she improved but HR remained in the 110s. Once she received her third dose, her HR improved and she converted. I also had a discussion with the new car make ready worker who had recommended amiodarone, however given that she spontaenously converted. This order was discontinued prior to administration. (3) Pneumonia: Possible. Will cover with antibiotics given degree of consolidation on CT I do not feel she requires pseudomonas coverage however and will continue treatment with IV Unasyn to be stepped down to Augmentin + azithromycin once improving COVID-19 negative, isolation precautions removed Procalcitonin negative (4) Chest pain: Pleuritic pain secondary to PE above Use acetaminophen 1st line, then oxycodone. Toradol if oxycodone inneffective or having side effects to this - give prior Hank's Fundoplication and concurrent anticoagulation will need to monitor for worsening epigastric pain. (5) Abnormal CT scan, pelvis: US pelvis to assess lining of uterus given if cancerous would make her PEs provoked therefore justifying further inpatient workup. If suspected cancerous would also guide anticoagulation choice. (6) Restless legs syndrome: Continue ropinirole 4 mg p.o. at bedtime (7) HTN (hypertension): Continue amlodipine 10 mg p.o. every morning, valsartan 320 mg p.o. every morning, clonidine as needed (8) Hyponatremia: IV normal saline for hydration and correction of sodium. Would recommend against hydrochlorothiazide use. Repeat BMP in a.m, if not improving consider SIADH. (9) GERD (gastroesophageal reflux disease): Continue pantoprazole 40 mg p.o. at bedtime (10) Essential tremor: Continue primidone 50 mg p.o. 3 times daily (11) Peripheral neuropathy: Notable history of this been on any medication (12) Anxiety disorder, unspecified: Continue fluoxetine 80 mg p.o. every morning, hydroxyzine as needed (13) Hyperlipidemia, unspecified: Continue simvastatin 20 mg p.o. at bedtime Admission and Anticipated Discharge Date Admission Date: October 16, 2019 Subjective 68 yo female reports feeling well She has no new complaints. On second visit, she reports having palpitations and A FEELING OF UNEASINESS. On thrid visit, patient felt back to normal after 3rd dose of metoprolol. Review of Systems Review of Systems: All systems reviewed & are unremarkable except as noted in HPI & below Physical Exam Physical Exam: On initial eval: Constitutional: well developed, well nourished and + obese; no acute distress (While lying on her right side) Eyes: PERRL, conjunctivae normal, anicteric sclerae ENMT: external ear and nose normal, oropharynx normal Neck: trachea midline, no thyromegaly Respiratory: normal respiratory effort, + cough and able to speak in complete sentences; no respiratory distress Auscultation: + crackles (Right- sided throughout); no diminished lung sounds, no rales and no rhonchi Cardiovascular: Rate/Rhythm: regular rate and regular rhythm Heart Sounds: no murmur Vessels: no JVD Extremities: normal capillary refill and + pedal edema (Trace ankles bilaterally equal); no calf tenderness Gastrointestinal (Abdomen): normal bowel sounds, soft, nontender, no hepatosplenomegaly Musculoskeletal: no cyanosis or clubbing, extremities motor strength 5/5 Skin: no rashes, warm and dry Neurologic: moves all extremities and awake; not confused Psychiatric: A+Ox3, euthymic affect Lymphatic: no cervical or axillary lymphadenopathy On repeat: heart rate was irregularly irregular Results & Data Results & Data ([facility]) Vital Signs (Past 12 Hours) Vital Signs Temp Pulse Pulse Resp BP Pulse Ox 10/17/19 19:32 37.1 C 78 19 155/94 H 95 10/17/19 15:46 37.3 C 79 18 153/78 H 94 10/17/19 15:20 81 10/17/19 13:12 162/91 H 10/17/19 11:30 36.9 C 79 18 193/102 H 93 PG Care Time/CCT Total # of Minutes Spent Total Time Spent with Patient: Total time spent is greater than 50% in coordination of care (as documented) at patient's floor/unit and/or counseling patient: Prolonged Care Time Prolonged Care Time: Yes Total Prolonged Care Time: 75 from 12:50 to 13:00 13:10 to 13:50 14:02 to 14:22 16:00 to 16:05 Coding Level of Care Code 75777 Subseq Hosp Care Lvl 3 Diagnoses Pulmonary embolism I26.99 Acute cor pulmonale presence: unspecified Chronicity: acute Pulmonary embolism type: unspecified PAF (paroxysmal atrial fibrillation) I48.0 Pneumonia J18.9 Laterality: right Lung location: lower lobe of lung Pneumonia type: due to unspecified organism Chest pain R07.[address] scan, pelvis R93.5 Restless legs syndrome G25.81 HTN (hypertension) I10 Hyponatremia E87.1 GERD (gastroesophageal reflux disease) K21.9 Essential tremor G25.0 Peripheral neuropathy G62.9 Anxiety disorder, unspecified F41.9 Hyperlipidemia, unspecified E78.5 Additional Codes Prolonged Care Time - Prolonged Care Time: Yes ([id number]) Time Spent (min) 65 (1) Pulmonary embolism Acute cor pulmonale presence: unspecified Chronicity: acute Pulmonary embolism type: unspecified Qualified Code(s): I26.99 - Other pulmonary embolism without acute cor pulmonale (2) Pneumonia Laterality: right Lung location: lower lobe of lung Pneumonia type: due to unspecified organism Qualified Code(s): J18.9 - Pneumonia, unspecified organism
[2019-10-18] MEDS: OXYCODONE HCL IR 5 MG TAB (IMMEDIATE RELEASE) PO PRN ×2 (03:05→15:24)
[2019-10-18] MEDS: ONDANSETRON INJ 2 MG/ML 2 ML VIAL IV PRN ×2 (03:05→15:24)
[2019-10-18] MEDS: AMPICILLIN/SULBACTAM SOD 1,500 MG in 0.9 % SODIUM CHLORIDE 100 ML IV SCH ×4 (04:14→23:06)
[2019-10-18 06:48] LABS: INR 1.1 (0.9-1.1); Partial Thromboplastin Ratio 1.8; Partial Thromboplastin Time 49.9 Seconds (21.0-31.0); Prothrombin Time 11.3 Seconds (9.0-12.0)
[2019-10-18] MEDS: SODIUM CHLORIDE 0.9% 1000ML 1,000 ML IV SCH ×3 (08:06→23:47)
[2019-10-18] MEDS: FLUOXETINE HCL 20 MG CAP PO SCH (08:06)
[2019-10-18] MEDS: AMLODIPINE BESYLATE 5 MG TAB PO SCH (08:07)
[2019-10-18] MEDS: MAGNESIUM OXIDE 400 MG TAB PO SCH ×2 (08:07→20:21)
[2019-10-18] MEDS: AZITHROMYCIN 250 MG TAB PO SCH (08:07)
[2019-10-18] MEDS: VALSARTAN 80 MG TAB PO SCH (08:08)
[2019-10-18] MEDS: METOPROLOL TARTRATE 25 MG TAB PO SCH ×2 (08:08→20:21)
[2019-10-18] MEDS: PRIMIDONE 50 MG TAB PO SCH ×3 (08:08→20:21)
[2019-10-18] MEDS: POTASSIUM CHLORIDE 20 MEQ TABCR PO SCH ×3 (08:08→20:21)
--- NOTE | 2019-10-18 09:49 | Cardiology Progress Note ---
Date of Service October 18, 2019 Assessment & Plan (1) PAF (paroxysmal atrial fibrillation): -converted to sinus rhythm with intravenous amiodarone. -this is her 1st and only episode according to her report. -would plan to use amiodarone 200 mg b.i.d. for 6-8 weeks while her pulmo nary status improves. (2) Pulmonary embolism: -apparently an unprovoked event. -continues on intravenous heparin at this time. -will be on long-term anticoagulation as an outpatient. (3) HTN (hypertension): -borderline control at this time. (4) Hyperlipidemia, unspecified: -continue simvastatin. Admission and Anticipated Discharge Date Admission Date: October 16, 2019 Subjective The patient is resting comfortably at the bedside without complaints of chest pain, dyspnea, or palpitations. Physical Exam Physical Exam: In general is obese white female lying supine in bed without complaints. HEENT exam is negative. Neck is supple with full carotid upstrokes. There are no carotid bruits. Jugular venous pressure is flat at 90. There is no thyromegaly. Cardiovascular exam reveals regular rhythm with a normal S1 and S2. No S3 or murmurs are noted. Lungs are clear without rales, rhonchi, or wheezes. Abdomen is soft and nontender without bruits. Extremities reveal intact radial artery pulses bilaterally. There is no peripheral edema. Results & Data ([facility]) Vital Signs (Past 12 Hours) Vital Signs Temp Pulse Pulse Resp BP Pulse Ox 10/18/19 07:29 36.7 C 65 18 179/93 H 96 10/18/19 03:58 37 C 60 19 148/84 H 94 10/18/19 00:13 82 10/17/19 23:16 37 C 72 18 153/80 H 90 Diagnostic Findings laundry presser notes normal sinus rhythm. PG Care Time/CCT Total # of Minutes Spent Total Time Spent with Patient: Total time spent is greater than 50% in coordination of care (as documented) at patient's floor/unit and/or counseling patient: Coding Level of Care Code 91497 Subseq Hosp Care Lvl 3 Diagnoses PAF (paroxysmal atrial fibrillation) I48.0 Pulmonary embolism I26.99 Acute cor pulmonale presence: unspecified Chronicity: acute Pulmonary embolism type: unspecified HTN (hypertension) I10 Hyperlipidemia, unspecified E78.5 (1) Pulmonary embolism Acute cor pulmonale presence: unspecified Chronicity: acute Pulmonary embolism type: unspecified Qualified Code(s): I26.99 - Other pulmonary embolism without acute cor pulmonale
[2019-10-18] MEDS: HEPARIN SODIUM/DEXTROSE 25,000 UNITS/500 ML BAG IV SCH (11:15)
[2019-10-18 11:30] LABS: BUN Creatinine Ratio 6.9 (10-20); Calcium 8.1 mg/dl (8.5-10.1); Creatinine Clr Calc Pharmacy 89.8 ml/min; Est GFR (Non-African American) 92.4; Potassium 3.4 mmol/L (3.5-5.1)
[2019-10-18 11:41] LABS: Basophils # (auto) 0.08 K/uL (0-0.2); Basophils % (auto) 0.8 %; Eosinophils # (auto) 0.56 K/uL (0-0.5); Eosinophils % (auto) 5.9 %; Hematocrit (blood only) 34.8 % (37-47); Hemoglobin 11.3 g/dL (12.0-16.0); Immature Granulocytes # (auto) 0.04 K/uL (0.00-0.02); Immature Granulocytes % (auto) 0.4 %; Lymphocytes # (auto) 2.51 K/uL (1.2-3.4); Lymphocytes % (auto) 26.6 %; Mean Corpuscular Hemoglobin 27.2 pg (25-34); Mean Corpuscular Hgb Conc 32.5 g/dL (32-36); Mean Corpuscular Volume 83.9 fL (80-100); Mean Platelet Volume 9.3 fL (7.4-10.4); Monocytes # (auto) 0.97 K/uL (0.11-0.59); Monocytes % (auto) 10.3 %; Neutrophils # (auto) 5.26 K/uL (1.4-6.5); Platelet Count 399 K/uL (130-400); RDW Standard Deviation 42.9 fL (36.4-46.3); Red Blood Count 4.15 M/uL (4.2-5.4); White Blood Count 9.42 K/uL (4.8-10.8)
--- NOTE | 2019-10-18 13:37 | OB/GYN Consultation ---
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 Concern for endometrial malignancy, particularly in the setting of pulmonary emboli. Patient was counseled that the next steps in her care depend upon obtaining a biopsy of the endometrium to determine if a malignancy is in fact present. This can be accomplished via pipelle biopsy in an office setting once she is able to tolerate supine position without desaturating; therefore not performed today, and defer until after anticoagulant therapy is successful in reducing the symptoms of her PEs. She is to make an outpatient appointment with my office, info added to her discharge paperwork accordingly. Once results of biopsy are obtained, if malignancy is present she is aware that her care will require transfer to a Clinical Care Coordinator eligibility specialist at a tertiary center; likely [facility] or [place]. History of Present Illness Reason for Consultation: Endometrial abnormality on imaging, PE's Attending Physician: Ion Pena History of Present Illness 68yo with admission on internal medicine service currently. She presented due to acute SOB and cough with chest pain, and was found to have large pulmonary emboli. In the course of her workup, CT of the Abd/Pelv revealed abnormal thickening of the uterine wall. A follow up ultrasound was done showing the uterine lining to be 14mm and cystic in nature. The pelvis was otherwise normal with nonvisualized ovaries. I am asked to consult on this patient due to suspicion of endometrial malignancy, possibly contributing to the formation of PE's. The patient is interviewed in her room, where a support person is seated with her. She is cooperative but not an excellent historian with regards to her prior [employer] care. She denies any vaginal bleeding, not even a streak, since menopause which was at a "normal age." She denies ever using HRT. She does note her last visit with [facility] or any form of pelvic healthcare was 10 plus years ago. She thinks she may have had one abnormal pap that was normal when repeated, but does not believe she had colpo or LEEP. She does have a history of unilateral oophorectomy due to endometrioma but cannot remember with certainty which ovary remains. She had appendectomy concurrently so thinks it may have been the right ovary that was removed. She had three normal pregnancies with term vaginal births, but notes each delivery was complicated by retained placenta and hemorrhage. She denies having ever had D&C or surgery to remove any placental portions and states her only management was "they gave me a lot of blood." Allergies Allergy/AdvReac Type Severity Reaction Status Date / Time nitroglycerin Allergy Severe PRURITIS, Verified 10/16/19 14:51 HEADACHE, VOMITING latex Allergy Mild RASH Verified 10/16/19 14:51 potassium chloride AdvReac Mild "DID NOT Verified 10/16/19 14:51 TOLERATE" WITH IV Opioid Analgesics AdvReac Intermediate "VERY Uncoded 10/16/19 14:51 SENSITIVE" N/V Home Medications Home Medications Medication Instructions Recorded Confirmed Type fluoxetine 80 mg PO QAM 02/08/18 10/16/19 History levalbuterol tartrate 2 puff INHALATION Q6 PRN 02/08/18 10/16/19 History ondansetron HCl 4 mg PO TID PRN 02/08/18 10/16/19 History pantoprazole 40 mg PO HS 02/08/18 10/16/19 History ropinirole 4 mg PO HS 07/07/18 10/16/19 History primidone 50 mg tablet 50 mg PO TID 30 Days #90 tab 05/15/19 10/16/19 Rx amlodipine 10 mg PO QAM 10/16/19 10/16/19 History clonidine HCl 0.1 mg PO BID PRN 10/16/19 10/16/19 History cyanocobalamin (vitamin B-12) 1,000 mcg IM MONTHLY 10/16/19 10/16/19 History hydrochlorothiazide 25 mg PO DAILY PRN 10/16/19 10/16/19 History hydroxyzine HCl 10 mg PO TID PRN 10/16/19 10/16/19 History simvastatin 20 mg PO HS 10/16/19 10/16/19 History valsartan 320 mg PO QAM 10/16/19 10/16/19 History Patient History Medical History Anxiety Anxiety disorder, unspecified Balance problem NO DEFINITIVE DX= PCP MONITORING; PLAN FOR FUTURE NEURO REFERRAL Borderline personality disorder Chronic pain of left knee Depression Dyspnea GERD (gastroesophageal reflux disease) CONTROLLED History of blood transfusion 1969' S/P CHILDBIRTH History of endometriosis HTN (hypertension) Hyperlipidemia Hyperlipidemia, unspecified Hypokalemia LAMBERTO (iron deficiency anemia) Idiopathic scoliosis Iron deficiency anemia, unspecified Lumbago Major depressive disorder, single episode, unspecified Obesity Panic attacks Panic disorder Premature ventricular contractions (PVCs) (VPCs) Reactive airway disease Restless leg Restless legs syndrome Tremor Weakness generalized Surgical History History of bladder suspension procedure History of cardiac cath X2; 15 YEARS AGO= NO STENTS History of hernia repair History of surgery ENDOMETRIOMA REMOVAL + PARTIAL UNILATERAL OOPHORECTOMY + APPENDECTOMY History of surgical removal of ganglion cyst LEFT WRIST History of tooth extraction S/p bilateral blepharoplasty Status post Hank fundoplication Family History Grandmother (Paternal) Family hx of colon cancer Grandmother (Maternal) Family hx of colon cancer Social History Smoking Status: Never smoker Second Hand Exposure: Yes (as a child); Hx Alcohol Use: No Hx Substance Use: No Preferred Language: Jordanian Communication Ability: Effective [employer] Information [employer] Officer Required: No Beliefs That Will Affect Care: None Current Living Situation: Spouse Feels Safe at Home: Yes Safety Concerns: Feels Safe At This Time Review of Systems Review of Systems: All systems reviewed & are unremarkable except as noted in HPI & below Physical Exam Constitutional: WD/WN, vitals as above Sitting semi-vance's, receiving IV heparin, calm, cooperative, well groomed. Eyes: PERRL, conjunctivae normal, anicteric sclerae ENMT: external ear and nose normal, oropharynx normal (either dentures or veneers suspected; teeth very straight and white) Neck: trachea midline, no thyromegaly Respiratory: normal respiratory effort; no respiratory distress and does not use accessory muscles Cardiovascular: Rate/Rhythm: regular rate Skin: no rashes, warm and dry Neurologic: awake; not confused Speech / Cognition: normal speech Psychiatric: A+Ox3, euthymic affect Results & Data ([facility]) Vital Signs (Past 12 Hours) Vital Signs Temp Pulse Resp BP Pulse Ox 10/18/19 11:24 98.6 F 63 20 164/87 H 96 10/18/19 07:29 98.1 F 65 18 179/93 H 96 10/18/19 03:58 98.6 F 60 19 148/84 H 94 Laboratory Results Laboratory Results - last 24 hr 10/18/19 10/18/19 10/18/19 05:55 05:59 05:59 WBC 9.42 RBC 4.15 L Hgb 11.3 L Hct 34.8 L MCV 83.9 MCH 27.2 MCHC 32.5 RDW Std Deviation 42.9 RDW Coeff of Ladi 14.0 Plt Count 399 MPV 9.3 Immature Gran % (Auto) 0.4 Neut % (Auto) 56.0 Lymph % (Auto) 26.6 Callahan % (Auto) 10.3 Eos % (Auto) 5.9 Baso % (Auto) 0.8 Neut # (Auto) 5.26 Lymph # (Auto) 2.51 Callahan # (Auto) 0.97 H Eos # (Auto) 0.56 H Baso # (Auto) 0.08 Immature Gran # (Auto) 0.04 H PT 11.3 INR 1.1 APTT 49.9 H* PTT Ratio 1.8 Sodium 137 Potassium 3.4 L Chloride 105 Carbon Dioxide 24 Anion Gap 8.0 BUN 4 L Creatinine 0.60 Est Cr Clr Drug Dosing 89.8 Est GFR ( Amer) 107.0 Est GFR (Non-Af Amer) 92.4 BUN/Creatinine Ratio 6.9 L Glucose 108 H Calcium 8.1 L Diagnostic Findings Laboratory Results WBC 9.42 K/uL (4.8-10.8) 10/18/19 05:59 RBC 4.15 M/uL (4.2-5.4) L 10/18/19 05:59 Hgb 11.3 g/dL (12.0-16.0) L 10/18/19 05:59 Hct 34.8 % (37-47) L 10/18/19 05:59 MCV 83.9 fL (80-100) 10/18/19 05:59 MCH 27.2 pg (25-34) 10/18/19 05:59 MCHC 32.5 g/dL (32-36) 10/18/19 05:59 RDW Std Deviation 42.9 fL (36.4-46.3) 10/18/19 05:59 RDW Coeff of Ladi 14.0 % (11.5-14.5) 10/18/19 05:59 Plt Count 399 K/uL (130-400) 10/18/19 05:59 MPV 9.3 fL (7.4-10.4) 10/18/19 05:59 Immature Gran % (Auto) 0.4 % 10/18/19 05:59 Neut % (Auto) 56.0 % 10/18/19 05:59 Lymph % (Auto) 26.6 % 10/18/19 05:59 Callahan % (Auto) 10.3 % 10/18/19 05:59 Eos % (Auto) 5.9 % 10/18/19 05:59 Baso % (Auto) 0.8 % 10/18/19 05:59 Neut # (Auto) 5.26 K/uL (1.4-6.5) 10/18/19 05:59 Lymph # (Auto) 2.51 K/uL (1.2-3.4) 10/18/19 05:59 Callahan # (Auto) 0.97 K/uL (0.11-0.59) H 10/18/19 05:59 Eos # (Auto) 0.56 K/uL (0-0.5) H 10/18/19 05:59 Baso # (Auto) 0.08 K/uL (0-0.2) 10/18/19 05:59 Immature Gran # (Auto) 0.04 K/uL (0.00-0.02) H 10/18/19 05:59 PT 11.3 Seconds (9.0-12.0) 10/18/19 05:55 INR 1.1 (0.9-1.1) 10/18/19 05:55 APTT 49.9 Seconds (21.0-31.0) H* 10/18/19 05:55 PTT Ratio 1.8 10/18/19 05:55 D-Dimer 1480 ug/L FEU (0-500) H* 10/16/19 11:37 Sodium 137 mmol/L (136-145) 10/18/19 05:59 Potassium 3.4 mmol/L (3.5-5.1) L 10/18/19 05:59 Chloride 105 mmol/L (98-107) 10/18/19 05:59 Carbon Dioxide 24 mmol/L (21-32) 10/18/19 05:59 Anion Gap 8.0 (3-11) 10/18/19 05:59 BUN 4 mg/dl (7-18) L 10/18/19 05:59 Creatinine 0.60 mg/dl (0.6-1.2) 10/18/19 05:59 Est Cr Clr Drug Dosing 89.8 ml/min 10/18/19 05:59 Est GFR ( Amer) 107.0 10/18/19 05:59 Est GFR (Non-Af Amer) 92.4 10/18/19 05:59 BUN/Creatinine Ratio 6.9 (10-20) L 10/18/19 05:59 Glucose 108 mg/dl (70-99) H 10/18/19 05:59 Lactate 0.9 mmol/L (0.4-2.0) 10/16/19 11:37 Calcium 8.1 mg/dl (8.5-10.1) L 10/18/19 05:59 Magnesium 1.9 mg/dl (1.8-2.4) 10/16/19 10:40 Iron 31 mcg/dl (35-150) L 10/17/19 06:46 Transferrin 207 mg/dl (200-360) 10/17/19 06:46 Transferrin % Sat 11 % (15-50) L 10/17/19 06:46 Total Bilirubin 0.6 mg/dl (0.2-1) 10/16/19 10:40 AST 17 U/L (15-37) 10/16/19 10:40 ALT 20 U/L (12-78) 10/16/19 10:40 Alkaline Phosphatase 162 U/L (45-117) H 10/16/19 10:40 Troponin I < 0.015 ng/ml (0-0.045) 10/16/19 10:40 Total Protein 8.1 gm/dl (6.4-8.2) 10/16/19 10:40 Albumin 3.7 gm/dl (3.4-5.0) 10/16/19 10:40 Globulin 4.4 gm/dl (2.5-4.0) H 10/16/19 10:40 Albumin/Globulin Ratio 0.8 (0.9-2) L 10/16/19 10:40 Lipase 94 U/L (73-393) 10/16/19 10:40 Procalcitonin 0.06 ng/ml (0-0.5) 10/17/19 06:46 Urine Color Yellow 10/16/19 18:40 Urine Appearance Clear (Clear) 10/16/19 18:40 Urine pH 6.5 (4.5-7.5) 10/16/19 18:40 Ur Specific [place] > 1.045 (1.000-1.030) H 10/16/19 18:40 Urine Protein Negative (Negative) 10/16/19 18:40 Urine Glucose (UA) Negative (Negative) 10/16/19 18:40 Urine Ketones Negative (Negative) 10/16/19 18:40 Urine Blood Negative (Negative) 10/16/19 18:40 Urine Nitrite Positive (Negative) A 10/16/19 18:40 Urine Bilirubin Negative (Negative) 10/16/19 18:40 Urine Urobilinogen Negative (Negative) 10/16/19 18:40 Ur Leukocyte Esterase Negative (Negative) 10/16/19 18:40 Urine WBC (Auto) 5-10 /hpf (0-5) H 10/16/19 18:40 Urine RBC (Auto) 0-4 /hpf (0-4) 10/16/19 18:40 U Hyaline Cast (Auto) 0 /lpf (0-5) 10/16/19 18:40 U Epithel Cells (Auto) 20-30 /lpf (0-5) H 10/16/19 18:40 Urine Bacteria (Auto) 1+ (Negative) H 10/16/19 18:40 COVID-19 Eval Order Covid19 Done at [facility] 10/16/19 12:12 COVID-19 PCR NEGATIVE (Negative) 10/16/19 12:12 CT and US of pelvis reviewed personally. PG Care Time/CCT Total # of Minutes Spent Total Time Spent with Patient: Total time spent is greater than 50% in coordination of care (as documented) at patient's floor/unit and/or counseling patient: Coding Level of Care Code 35656 Inpt Consult Level 5 Diagnoses Endometrial thickening on ultrasound R93.89
[2019-10-18] MEDS: hydrOXYzine HCl 10 MG TAB PO PRN ×2 (15:25→20:26)
[2019-10-18] MEDS: PANTOprazole 40 MG TAB PO SCH (20:21)
[2019-10-18] MEDS: SIMVASTATIN 20 MG TAB PO SCH (20:21)
[2019-10-18] MEDS: ROPINIROLE HCL 1 MG TABLET PO SCH (20:21)
--- NOTE | 2019-10-18 22:38 | Hospitalist Progress Note ---
Date of Service October 18, 2019 Assessment & Plan (1) Pulmonary embolism: Unprovoked. IV heparin standard with bolus Continue ON IV heparin. Patient will likely be discharged on eliquis. Atrial fib subsided, it was short lived, likely precipated by P/E will remain on beta sohail, may require this as outpatient. (2) PAF (paroxysmal atrial fibrillation): Patient developed Atrial fibrillation. Likely secondary to pulmonary embolism. Patient required 3 doses of metoprolol, patient was being monitored, with the first 2 doses she improved but HR remained in the 110s. Once she received her third dose, her HR improved and she converted. (3) Pneumonia: Possible. Will cover with antibiotics given degree of consolidation on CT I do not feel she requires pseudomonas coverage however and will continue dakota atment with IV Unasyn to be stepped down to Augmentin + azithromycin once improving COVID-19 negative, isolation precautions removed Procalcitonin negative (4) Chest pain: Pleuritic pain secondary to PE above Use acetaminophen 1st line, then oxycodone. Toradol if oxycodone inneffective or having side effects to this - give prior Hank's Fundoplication and concurrent anticoagulation will need to monitor for worsening epigastric pain. (5) Abnormal CT scan, pelvis: US pelvis to assess endometrial lining given if cancerous would make her PEs provoked therefore justifying further inpatient workup. If suspected cancerous would also guide anticoagulation choice. (6) Restless legs syndrome: Continue ropinirole 4 mg p.o. at bedtime (7) HTN (hypertension): Continue amlodipine 10 mg p.o. every morning, valsartan 320 mg p.o. every morning, clonidine as needed (8) Hyponatremia: IV normal saline for hydration and correction of sodium. Would recommend against hydrochlorothiazide use. Repeat BMP in a.m, if not improving consider SIADH. (9) GERD (gastroesophageal reflux disease): Continue pantoprazole 40 mg p.o. at bedtime (10) Essential tremor: Continue primidone 50 mg p.o. 3 times daily (11) Peripheral neuropathy: Notable history of this been on any medication (12) Anxiety disorder, unspecified: Continue fluoxetine 80 mg p.o. every morning, hydroxyzine as needed (13) Hyperlipidemia, unspecified: Continue simvastatin 20 mg p.o. at bedtime (14) Endometrial thickening on ultrasound: consulted associate product integrity engineer, patient will need an outpatient biopsy. Patient is aware, and will get this scheduled. Admission and Anticipated Discharge Date Admission Date: October 16, 2019 Subjective Patient reports feeling better. She has no new complaints at this time. is at bedside, would prefer that she stay another night. Review of Systems Review of Systems: All systems reviewed & are unremarkable except as noted in HPI & below Physical Exam Physical Exam: Constitutional: well developed, well nourished and + obese; no acute distress (While lying on her right side) Eyes: PERRL, conjunctivae normal, anicteric sclerae ENMT: external ear and nose normal, oropharynx normal Neck: trachea midline, no thyromegaly Respiratory: normal respiratory effort, no diminished lung sounds, no rales and no rhonchi Cardiovascular: Rate/Rhythm: regular rate and regular rhythm Heart Sounds: no murmur Vessels: no JVD Extremities: normal capillary refill and + pedal edema (Trace ankles bilaterally equal); no calf tenderness Gastrointestinal (Abdomen): normal bowel sounds, soft, nontender, no hepatosplenomegaly Musculoskeletal: no cyanosis or clubbing, extremities motor strength 5/5 Skin: no rashes, warm and dry Neurologic: moves all extremities and awake; not confused Psychiatric: A+Ox3, euthymic affect Lymphatic: no cervical or axillary lymphadenopathy Results & Data Results & Data ([facility]) Vital Signs (Past 12 Hours) Vital Signs Temp Pulse Resp BP Pulse Ox 10/18/19 19:00 36.8 C 96 H 18 180/98 H 95 10/18/19 15:51 36.9 C 69 20 186/118 H 96 10/18/19 11:24 37 C 63 20 164/87 H 96 PG Care Time/CCT Total # of Minutes Spent Total Time Spent with Patient: Total time spent is greater than 50% in coordination of care (as documented) at patient's floor/unit and/or counseling patient: Coding Level of Care Code 86694 Subseq Hosp Care Lvl 3 Diagnoses Pulmonary embolism I26.99 Acute cor pulmonale presence: unspecified Chronicity: acute Pulmonary embolism type: unspecified PAF (paroxysmal atrial fibrillation) I48.0 Pneumonia J18.9 Laterality: right Lung location: lower lobe of lung Pneumonia type: due to unspecified organism Chest pain R07.[address] scan, pelvis R93.5 Restless legs syndrome G25.81 HTN (hypertension) I10 Hyponatremia E87.1 GERD (gastroesophageal reflux disease) K21.9 Essential tremor G25.0 Peripheral neuropathy G62.9 Anxiety disorder, unspecified F41.9 Hyperlipidemia, unspecified E78.5 Endometrial thickening on ultrasound R93.89 Time Spent (min) 40 (1) Pulmonary embolism Acute cor pulmonale presence: unspecified Chronicity: acute Pulmonary embolism type: unspecified Qualified Code(s): I26.99 - Other pulmonary embolism without acute cor pulmonale (2) Pneumonia Laterality: right Lung location: lower lobe of lung Pneumonia type: due to unspecified organism Qualified Code(s): J18.9 - Pneumonia, unspecified organism
[2019-10-19] MEDS: AMPICILLIN/SULBACTAM SOD 1,500 MG in 0.9 % SODIUM CHLORIDE 100 ML IV SCH ×2 (04:27→09:42)
[2019-10-19] MEDS: HEPARIN SODIUM/DEXTROSE 25,000 UNITS/500 ML BAG IV SCH ×2 (06:50→10:37)
[2019-10-19 09:41] LABS: INR 1.1 (0.9-1.1); Partial Thromboplastin Ratio 1.7; Prothrombin Time 11.3 Seconds (9.0-12.0)
[2019-10-19] MEDS: FLUOXETINE HCL 20 MG CAP PO SCH (09:42)
[2019-10-19] MEDS: SODIUM CHLORIDE 0.9% 1000ML 1,000 ML IV SCH (09:42)
[2019-10-19] MEDS: VALSARTAN 80 MG TAB PO SCH (09:43)
[2019-10-19] MEDS: METOPROLOL TARTRATE 25 MG TAB PO SCH (09:43)
[2019-10-19] MEDS: MAGNESIUM OXIDE 400 MG TAB PO SCH (09:43)
[2019-10-19] MEDS: AMLODIPINE BESYLATE 5 MG TAB PO SCH (09:43)
[2019-10-19] MEDS: POTASSIUM CHLORIDE 20 MEQ TABCR PO SCH (09:43)
[2019-10-19] MEDS: AZITHROMYCIN 250 MG TAB PO SCH (09:43)
[2019-10-19] MEDS: PRIMIDONE 50 MG TAB PO SCH (09:43)
[2019-10-19 09:47] LABS: Partial Thromboplastin Time 46.1 Seconds (21.0-31.0)
[2019-10-19] MEDS ORDERED: STOP HEPARIN DRIP ORDER ONE (10:30)
[2019-10-19] MEDS ORDERED: hydroCHLOROthiazide 25 MG TAB PO STA (10:38)
[2019-10-19] MEDS ORDERED: APIXABAN 5 MG TABLET PO SCH (11:00)
--- NOTE | 2019-10-19 11:32 | Cardiology Progress Note ---
Date of Service October 19, 2019 Assessment & Plan (1) PAF (paroxysmal atrial fibrillation): -converted to sinus rhythm with intravenous metoprolol. -this is her 1st and only episode and clearly related to her pulmonary embolism. (2) Pulmonary embolism: -apparently an unprovoked event. -converted from heparin to Eliquis. (3) HTN (hypertension): -borderline control at this time. (4) Hyperlipidemia, unspecified: -continue simvastatin. Admission and Anticipated Discharge Date Admission Date: October 16, 2019 Subjective The patient is resting comfortably in bed and notices mild pleuritic chest discomfort. No palpitations. Physical Exam Physical Exam: In general is obese white female lying supine in bed without complaints. HEENT exam is negative. Neck is supple with full carotid upstrokes. There are no carotid bruits. Jugular venous pressure is flat at 90. There is no thyromegaly. Cardiovascular exam reveals regular rhythm with a normal S1 and S2. No S3 or murmurs are noted. Lungs are clear without rales, rhonchi, or wheezes. Abdomen is soft and nontender without bruits. Extremities reveal intact radial artery pulses bilaterally. There is no peripheral edema. Results & Data ([facility]) Vital Signs (Past 12 Hours) Vital Signs Temp Pulse Pulse Resp BP Pulse Ox 10/19/19 11:28 36.9 C 67 17 188/91 H 96 10/19/19 08:05 36.9 C 67 17 96 10/19/19 03:55 36.7 C 89 20 188/91 H 94 10/19/19 00:07 66 10/18/19 23:31 148/82 H Diagnostic Findings shelter monitor notes normal sinus rhythm with an occasional PVC. PG Care Time/CCT Total # of Minutes Spent Total Time Spent with Patient: Total time spent is greater than 50% in coordin ation of care (as documented) at patient's floor/unit and/or counseling patient: Coding Level of Care Code 26016 Subseq Hosp Care Lvl 3 Diagnoses PAF (paroxysmal atrial fibrillation) I48.0 Pulmonary embolism I26.99 Acute cor pulmonale presence: unspecified Chronicity: acute Pulmonary embolism type: unspecified HTN (hypertension) I10 Hyperlipidemia, unspecified E78.5 (1) Pulmonary embolism Acute cor pulmonale presence: unspecified Chronicity: acute Pulmonary embolism type: unspecified Qualified Code(s): I26.99 - Other pulmonary embolism without acute cor pulmonale
--- NOTE | 2019-10-28 09:27 | Discharge Summary ---
Date of Service October 19, 2019 Admission HPI Per Admitting Provider Brook Alexis is a 68-year-old female who presents to the ER with shortness of breath and right sided chest pain. She has a chronic cough which is been present for years secondary to reactive airway disease and reflux. However 3 weeks ago she had slow progression of worsening cough which was originally treated with [id number] medications for bronchitis. She used her inhaler without much benefit. Over the last 3 days she has had progressively worse right-sided chest pain below her ribs with radiation to her clavicle and jaw. Better when lying on her right side and she is much more comfortable after f entanyl given in the ER. Is a sharp and aching pain worse on inspiration and exertion. She feels less short of breath since coming to the ER. No recent long-haul flights, car journeys, surgeries. She denies any leg swelling or pain in her calves. With regards to her abnormal CAT scan with thickening of uterus wall she denies any abdominal pain, bloating, vagina bleeding. Menopause at 56-57 years old abdominal pain or bloating. Her periods were regular throughout her life. Prior endometriosis which resolved after 1 surgery. . Not seen a rn security in a long time. Other cancer screening is up-to-date per patient recollection with prior normal colonoscopy per patient recollection 1.5 years ago. Last mammogram was unremarkable 2 years ago. Principal Diagnosis Acute Pulmonary Emboli Discharge Exam Constitutional: well developed, well nourished and + obese; no acute distress (While lying on her right side) Eyes: PERRL, conjunctivae normal, anicteric sclerae ENMT: external ear and nose normal, oropharynx normal Neck: trachea midline, no thyromegaly Respiratory: normal respiratory effort, no diminished lung sounds, no rales and no rhonchi Cardiovascular: Rate/Rhythm: regular rate and regular rhythm Heart Sounds: no murmur Vessels: no JVD Extremities: normal capillary refill and + pedal edema (Trace ankles bilaterally equal); no calf tenderness Gastrointestinal (Abdomen): normal bowel sounds, soft, nontender, no hepatosplenomegaly Musculoskeletal: no cyanosis or clubbing, extremities motor strength 5/5 Skin: no rashes, warm and dry Neurologic: moves all extremities and awake; not confused Psychiatric: A+Ox3, euthymic affect Lymphatic: no cervical or axillary lymphadenopathy Discharge Data Allergies Allergy/AdvReac Type Severity Reaction Status Date / Time nitroglycerin Allergy Severe PRURITIS, Verified 10/26/19 12:08 HEADACHE, VOMITING latex Allergy Mild RASH Verified 10/26/19 12:08 potassium chloride AdvReac Mild "DID NOT Verified 10/26/19 12:08 TOLERATE" WITH IV Opioid Analgesics AdvReac Intermediate "VERY Uncoded 10/16/19 14:51 SENSITIVE" N/V Consultations 10/16/19 12:55 ED Decision to Admit Stat 10/17/19 14:17 Consult Cardiology Routine 10/18/19 12:12 Consult Gynecology Routine Ordered Studies 10/16/19 11:52 CT abd pelvis IV con only Stat CT angio chest PE protocol Stat 10/16/19 17:00 US pelvic complete Routine US transvaginal Routine Hospital Course (1) Pulmonary embolism: Unprovoked. IV heparin standard with bolus Was treated ON IV heparin. Patient will be discharged on eliquis. Discussed side effects and bleeding risk with patient. Atrial fib subsided, it was short lived, likely precipitated by P/E will remain on beta sohail, may require this as outpatient. (2) PAF (paroxysmal atrial fibrillation): Patient developed Atrial fibrillation. Likely secondary to pulmonary embolism. Patient required 3 doses of metoprolol, patient was being monitored, with the first 2 doses she improved but HR remained in the 110s. Once she received her third dose, her HR improved and she converted. Will place her on long acting metorpolol, this will also help with the BP. (3) Pneumonia: Possible. Will cover with antibiotics given degree of consolidation on CT I do not feel she requires pseudomonas coverage however and will continue treatment with IV Unasyn to be stepped down to Augmentin + azithromycin once improving COVID-19 negative, isolation precautions removed Procalcitonin negative (4) Chest pain: Pleuritic pain secondary to PE above Use acetaminophen 1st line, then oxycodone. Toradol if oxycodone inneffective or having side effects to this - give prior Hank's Fundoplication and concurrent anticoagulation will need to monitor for worsening epigastric pain. (5) Abnormal CT scan, pelvis: US pelvis to assess endometrial lining given if cancerous would make her PEs provoked therefore justifying further inpatient workup. If suspected cancerous would also guide anticoagulation choice. (6) Restless legs syndrome: Continue ropinirole 4 mg p.o. at bedtime (7) HTN (hypertension): Continue amlodipine 10 mg p.o. every morning, valsartan 320 mg p.o. every morning, clonidine as needed (8) Hyponatremia: IV normal saline for hydration and correction of sodium. Would recommend against hydrochlorothiazide use. Repeat BMP in a.m, if not improving consider SIADH. (9) GERD (gastroesophageal reflux disease): Continue pantoprazole 40 mg p.o. at bedtime (10) Essential tremor: Continue primidone 50 mg p.o. 3 times daily (11) Peripheral neuropathy: Notable history of this been on any medication (12) Anxiety disorder, unspecified: Continue fluoxetine 80 mg p.o. every morning, hydroxyzine as needed (13) Hyperlipidemia, unspecified: Continue simvastatin 20 mg p.o. at bedtime (14) Endometrial thickening on ultrasound: consulted heating engineer, patient will need an outpatient biopsy. Patient is aware, and will get this scheduled. Total Time Total Time Spent Total Time Spent (In Minutes): 32 Discharge Plan Discharge Items Patient Disposition: Home - Self-Care Reason For Visit: PE, PNEUMONIA Discharge Diagnosis: Pneumonia Condition on Discharge: Good Activity: Resume your previous activity Non-emergency contact: Primary Care Provider Call non-emergency contact if: you have any medication questions Follow-up/Referrals: Cierra Lincoln MD [Primary Care Provider] - Diet: Regular Addtl Attending Provider Instructions: You have been hospitalized for an acute medical problem. During your stay at [facility], we have made an effort to correct the problem that brought you to the hospital while keeping you as comfortable as possible. Medications were used to bring your condition under control and your discharge instructions will include directions for any medications you should take after leaving the hospital. Please make sure you see your Primary Care Provider as pa rt of your follow up plan. Continue Eliquis 10 mg by more twice a day for 13 doses (6 days and a half), then 5 mg PO BID. Addtl Frozen Food Department Manager Provider Instructions: Please contact the NURSERY ATTENDANT Office to make an appointment for endometrial biopsy. This test should be done as soon as you are able to lie flat on your back for 10 minutes without becoming short of breath. The [facility] NURSERY ATTENDANT office is reachable at [phone]. Pending Studies at Discharge: No Stand-Alone Forms: My [facility], Smoking Cessation Medications and DC Order Prescriptions: New Eliquis 5 mg tablet See Rx Instructions .ROUTE .COMPLEX Qty: 73 RF: 0 metoprolol succinate 50 mg tablet extended release 24 hr 50 mg PO PM Qty: 30 RF: 0 potassium chloride 10 mEq tablet,ER particles/crystals 10 meq PO DAILY Qty: 30 RF: 0 Continued primidone 50 mg tablet 50 mg PO TID 30 Days Qty: 90 RF: 5 fluoxetine 40 mg capsule 80 mg PO QAM RF: 0 ondansetron HCl 4 mg tablet 4 mg PO TID PRN (Reason: Nausea) RF: 0 pantoprazole 40 mg tablet,delayed release (DR/EC) 40 mg PO HS RF: 0 levalbuterol tartrate 45 mcg/actuation HFA aerosol inhaler 2 puff Inhalation Q6 PRN (Reason: Shortness Of Breath Or Wheezing) RF: 0 ropinirole 4 mg Tablet 4 mg PO HS RF: 0 amlodipine 10 mg tablet 10 mg PO QAM RF: 0 simvastatin 20 mg tablet 20 mg PO HS RF: 0 cyanocobalamin (vitamin B-12) 1,000 mcg/mL solution 1,000 mcg IM MONTHLY RF: 0 hydroxyzine HCl 10 mg tablet 10 mg PO TID PRN (Reason: Anxiety) RF: 0 valsartan 320 mg tablet 320 mg PO QAM RF: 0 Changed hydrochlorothiazide 25 mg tablet 25 mg PO DAILY Qty: 0 RF: 0 Discontinued clonidine HCl 0.1 mg tablet 0.1 mg PO BID PRN (Reason: Hypertension) RF: 0 Discharge Orders: Discharge Order (Routine); Ordered 10/19/19 Ordered By: Ion Pena Admission Data Admit Date/Time: 10/16/19 13:13 Attending Provider: Ion Pena Admit Provider: Timi Dumont Primary Care Provider: Cierra Lincoln Other Providers: Timi Dumont ; Raymond Downs ; Lana Hodges Other Interventions: Discharge Summary Assessment (RN) Last Done: 10/19/19 11:28 Coding Level of Care Code D/C Day Management >30 mins Diagnoses Pulmonary embolism I26.99 Acute cor pulmonale presence: unspecified Chronicity: acute Pulmonary embolism type: unspecified PAF (paroxysmal atrial fibrillation) I48.0 Pneumonia J18.9 Laterality: right Lung location: lower lobe of lung Pneumonia type: due to unspecified organism Chest pain R07.[address] scan, pelvis R93.5 Restless legs syndrome G25.81 HTN (hypertension) I10 Hyponatremia E87.1 GERD (gastroesophageal reflux disease) K21.9 Essential tremor G25.0 Peripheral neuropathy G62.9 Anxiety disorder, unspecified F41.9 Hyperlipidemia, unspecified E78.5 Endometrial thickening on ultrasound R93.89 Time Spent (min) 32
== END 2019-10-19 11:45 | disposition home or self-care (01) | DRG 175 ==
LOC: ED 10:21 → SUATTDRO 13:13 → 2N 13:13 → 2W 10-17 09:27

== ENCOUNTER 2020-05-27 13:48 | Observation (INO) ==
[2020-05-27] MEDS ORDERED: diphenhydrAMINE 50 MG/ML VIAL IV STA (14:07)
[2020-05-27] MEDS ORDERED: METOCLOPRAMIDE HCL INJ 5 MG/ML 2 ML VIAL IV ONE (14:07)
[2020-05-27] MEDS ORDERED: SODIUM CHLORIDE 0.9% 1000ML 1,000 ML IV ONE (14:07)
[2020-05-27] MEDS ORDERED: ACETAMINOPHEN 1,000 MG/100 ML VIAL IV STA (14:07)
--- NOTE | 2020-05-27 14:28 | Emergency Department Note ---
Impression & Plan Hypertensive urgency, Hypercalcemia, Headache, Hypomagnesemia, Dehydration ED Provider Note NAME: MIGUEL ROSALES AGE: 69 SEX: F ARRIVES VIA: Walk-In INFORMANT: Patient, ED PROVIDER(S): Ludwig Orozco MD CHIEF COMPLAINT: Headache, elevated blood pressure. PLAN: Disposition: Admit MEDICAL DECISION MAKING: The patient is a pleasant 69-year-old woman with a past medical history of hypertension, anxiety, essential tremor, PE on Eliquis, GERD who presents to the emergency department with progressive worsening headache which began yesterday with radiation down her right side of her neck where she noted her blood pressure was increasingly elevated and reports she worried about all night and did not sleep and so her headache became worsened today as did her blood pressure. She reports that she takes her blood pressure as prescribed and does not miss doses. She further reports taking an extra dose of all her blood pressure medications today but did not feel this helped. Otherwise she reports some associated nausea but is similar to her chronic nausea. She reports some mild shortness of breath but this is similar to her chronic shortness of breath. She denies any diarrhea or urinary symptoms. Of note, she did receive her second vaccination for COVID-19 2 weeks ago. On arrival the patient is anxious appearing but no acute distress, afebrile with blood pressure 190/118's and vital signs otherwise stable. She appears clinically dry. She has no focal neurologic deficits. EKG without overt acute ischemia. Chest x-ray negative for acute cardiopulmonary process. WBC, H/H within normal limits. Platelets 418, n onspecific. Chemistry without metabolic acidosis. Potassium 3.3 and magnesium 1.3 with repletion provided. Calcium is 12.5 likely contributing to the patient's symptoms. Troponin negative/undetectable. Lipase within normal limits. TSH 5.1 but free T4 within normal limits. CT of the head and CT of the head and neck were performed negative for ICH, ischemia or severe narrowing or occlusion of large vessels. Upon reevaluation the patient was feeling improved after IV fluid hydration, APAP, Reglan, diphenhydramine. BP improved. However, given the patient's electrolyte abnormalities she was in agreement for plan for admission. Dr. Dumont, [place] [facility] [place] hospitalist will evaluate the patient for admission. Triage Nursing notes reviewed and agree them. Prior medical records reviewed Vital Signs: reviewed and remarkable for hypertension Differential diagnosis: Migraine headache, meningitis, sinusitis, CO exposure, ICH, SAH, infection, tumor, headache, sinus thrombosis, arterial dissection, as well as other pathologies. ER treatment provided: See below. Diagnostics interpreted by me: ECG: Normal sinus rhythm, 79 bpm, no ectopy, no overt ST elevation or depression, QTC 447, QRS 100. Cardiac Monitoring: An order for continuous cardiac monitoring was placed and demonstrated Normal sinus rhythm, 79 bpm, no ectopy Laboratory studies: See below Imaging studies: XR chest 1V portable CLINICAL HISTORY: Atypical chest pain. COMPARISON STUDY: Chest CT February 26, 2020. FINDINGS: Lung volumes are normal. No consolidation is noted. There is no evidence for pulmonary edema. Cardiomegaly is noted. This is unchanged. There may be calcific tendinitis of the left rotator cuff. There is elevation of the right humeral head. There is osteoarthritis of both glenohumeral joints. IMPRESSION: No acute cardiopulmonary findings. -- UNENHANCED CT OF THE BRAIN; CT ANGIOGRAM OF THE BRAIN; CT ANGIOGRAM OF THE NECK CLINICAL HISTORY: Headache. Hypertension. Neck pain. Dizziness. COMPARISON STUDY: CT angiogram of the head and neck dated 08/13/2017. TECHNIQUE: Unenhanced axial CT scan of the brain is performed. Subsequently, following the IV administration of 119 of Optiray 320, CT angiogram of the head and neck was performed from the aortic arch to the vertex. Images are reviewed in the axial, sagittal, and coronal planes. 3-D MIPS images are created and asse ssed. IV contrast was administered without complication. All measurements were calculated based on NASCET criteria. A dose lowering technique was utilized adhering to the principles of ALARA. CT DOSE: 1054.54 mGy.cm FINDINGS: Brain parenchyma: There is age-related involutional change noting moderate subcortical and periventricular microangiopathic disease. There is no hemorrhage, mass effect, or evidence of acute territorial ischemia by CT criteria. There is no evidence of enhancing mass lesion on the angiogram phase images. The ventricles, sulci, and cisterns are prominent secondary to in volutional change. Crane-white matter differentiation is preserved. No extra- axial fluid collection is seen. Thoracic aorta: There is mild atherosclerotic calcification of the thoracic aorta. Visualized portions of the thoracic aorta are normal in caliber. The aortic arch demonstrates standard 3-vessel anatomy. Right carotid arterial system: The right common carotid artery is widely patent. Atherosclerotic plaque causes less than 50% stenosis of the proximal right internal carotid artery. The remainder of the right internal carotid artery and the right external carotid artery are patent. Left carotid arterial system: The left common carotid artery is widely patent, as are the left internal and external carotid arteries. Calcified plaque is noted in the carotid bulb. Vertebral arteries: The vertebral arteries are widely patent bilaterally and codominant in the neck. Subclavian arteries: Widely patent bilaterally. Intracranial vasculature: There is atherosclerotic calcification of the cavernous carotid and vertebral arteries The internal carotid arteries are patent at the skull base, as are the anterior and middle cerebral arteries bilaterally. The vertebrobasilar system and posterior cerebral arteries are widely patent. There is mild left-sided dominance. There is no aneurysm, high- grade stenosis, or focal vessel cut off seen throughout the intracranial circulation. Jugular veins: Patent bilaterally. Dural sinuses: Patent. Lung apices: Partially visualized upper lobe lung parenchyma appears clear. Soft tissues: The visualized pharyngeal soft tissues are normal in appearance noting angiographic phase technique. The oropharyngeal airway appears widely patent. The salivary and thyroid glands are normal in appearance. No cervical lymphadenopathy is seen. Skeletal structures: The skeletal structures are osteopenic. The calvarium appears intact. The cervical spine is maintained noting multilevel spondylosis. No lytic or blastic lesion is seen. Orbits: The bony orbits are intact. Orbital contents are normal as imaged. Sinuses and mastoids: The paranasal sinuses are clear. The mastoid air cells are well pneumatized. IMPRESSION: 1. There is no hemorrhage, mass effect, or evidence of acute territorial ischemia by CT criteria. 2. Unremarkable CT angiogram of the brain. 3. Unremarkable CT angiogram of the neck. Consultation(s): Dr. Dumont, [place] [facility] [place] hospitalist will evaluate the patient for admission. HPI: The patient is a pleasant 69-year-old woman with a past medical history of hypertension, anxiety, essential tremor, PE on Eliquis, GERD who presents to the emergency department with progressive worsening headache which began yesterday with radiation down her right side of her neck where she noted her blood pressure was increasingly elevated and reports she worried about all night and did not sleep and so her headache became worsened today as did her blood pressure. She reports that she takes her blood pressure as prescribed and does not miss doses. She further reports taking an extra dose of all her blood pressure medications today but did not feel this helped. Otherwise she reports some associated nausea but is similar to her chronic nausea. She reports some mild shortness of breath but this is similar to her chronic shortness of breath. She denies any diarrhea or urinary symptoms. Of note, she did receive her second vaccination for COVID-19 2 weeks ago. ROS: See above HPI for pertinent positives & negatives. A total of 10 systems reviewed and were otherwise negative. PAST MEDICAL HISTORY:See Below PAST SURGICAL HISTORY:See Below FAMILY HISTORY:See Below SOCIAL HISTORY:See Below HOME MEDICATIONS:See Below ALLERGIES:See Below VITALS:See Below PHYSICAL EXAMINATION: GENERAL: Awake, alert, anxious-appearing, in no distress HENT: Normocephalic, atraumatic. Oropharynx with dry mucous membranes and otherwise unremarkable. EYES: Normal conjunctiva. Sclera non-icteric. EOMI. No nystamgus. PEARRL. NECK: Supple. No nuchal rigidity. FROM. No JVD. RESPIRATORY: Clear to auscultation. CARDIAC: Regular rate, normal rhythm. Extremities warm and well perfused. Pulses equal. ABDOMEN: Soft, non-distended. No tenderness to palpation. No rebound or guarding. No masses. RECTAL: Deferred. MUSCULOSKELETAL: Chest examination reveals no tenderness. The back is symmetrical on inspection without obvious abnormality. There is no CVA tenderness to palpation. No joint edema. LOWER EXTREMITIES: Calves are equal size bilaterally and non-tender. No edema. No discoloration. NEURO: Normal sensorium. No sensory or motor deficits noted. 5/5 strength and SILT x 4 extremities. Cerebellar function intact including [id number], alternating palms, [id number]. SKIN: No rash or jaundice noted. ED COURSE: Critical Care: I have personally spent greater than 35 minutes of critical care time in the direct management of this patient. This includes bedside care, interpretation of diagnostic studies, and testing, discussion with consultants, patient, and family members, and other required patient management activities. This 35 minutes is in excess of all separately billable procedures. Ludwig Orozco MD Past Med/Surg History Medical History Anxiety Atrial fibrillation single episode 09/2019 converted with IV amiodarone in setting of PNA/PE- did not feel that further cardiac evaluation/testing needed from cardiology perspective during admission Balance problem under surveillance by PCP, no definitive diagnosis Depression GERD (gastroesophageal reflux disease) controlled History of blood transfusion 1970s after each childbirth History of endometriosis HTN (hypertension) Hx pulmonary embolism 09/2019- on Eliquis Hyperlipidemia LAMBERTO (iron deficiency anemia) Idiopathic scoliosis Osteoporosis Panic attacks Premature ventricular contractions (PVCs) (VPCs) Reactive airway disease Restless leg Tremor benign essential tremor (left hand)- controlled on primidone Surgical History History of bladder suspension procedure History of cardiac cath X2; 15+ years ago- no stents History of hernia repair open ventral hernia repair: 07/20/18: Grade view 1, MAC#3, ETT 7.0 at [facility] History of surgery ENDOMETRIOMA REMOVAL + PARTIAL UNILATERAL OOPHORECTOMY + APPENDECTOMY History of surgical removal of ganglion cyst LEFT WRIST History of tooth extraction Hx of colonoscopy S/p bilateral blepharoplasty Status post Hank fundoplication Family History Grandmother (Paternal) Family hx of colon cancer Grandmother (Maternal) Family hx of colon cancer Social History Smoking Status: Never smoker Second Hand Exposure: No; Hx Alcohol Use: Yes Alcohol type: wine Hx Substance Use: No Preferred Language: Wolof Communication Ability: Effective 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 Beliefs That Will Affect Care: None Current Living Situation: Spouse Feels Safe at Home: Yes Assistive Devices: Cane, Denture - Upper, Denture - Lower and Glasses Allergies Allergies Allergy/AdvReac Type Severity Reaction Status Date / Time nitroglycerin Allergy Severe pruritis, Verified 05/27/20 15:19 headache, vomiting with patch (see comments) latex Allergy Mild rash Verified 05/27/20 15:19 potassium chloride AdvReac Mild "did not Verified 05/27/20 15:19 tolerate" IV potassium Opioid Analgesics AdvReac Intermediate N/V, "very Uncoded 05/27/20 15:19 sensitive" Home Meds Home Medications Medication Instructions Recorded Confirmed levalbuterol tartrate 2 puff INHALATION Q6 PRN 02/08/18 05/27/20 ondansetron HCl 4 mg PO TID PRN 02/08/18 05/27/20 pantoprazole 40 mg PO BID 02/08/18 05/27/20 ropinirole 4 mg PO HS 07/07/18 05/27/20 cyanocobalamin (vitamin B-12) 1,000 mcg IM MONTHLY 10/16/19 05/27/20 hydroxyzine HCl 10 mg PO TID PRN 10/16/19 05/27/20 simvastatin 20 mg PO HS 10/16/19 05/27/20 valsartan 320 mg PO QAM 10/16/19 05/27/20 Eliquis 5 mg PO BID 12/25/19 05/27/20 potassium chloride 10 meq PO DAILY 12/25/19 05/27/20 levothyroxine 25 mcg PO QAM 05/27/20 05/27/20 Previous Rx's Medication Instructions Recorded primidone 50 mg tablet 50 mg PO TID 30 Days #90 tab 04/11/20 amlodipine [Norvasc] 10 mg PO PM #30 tab 05/29/20 carvedilol 6.25 mg PO BID #60 tab 05/29/20 spironolactone 50 mg PO QAM #30 tab 05/29/20 Results & Data (ED) Vital Signs Vital Signs - 24 hr 05/27/20 13:50 05/27/20 14:37 05/27/20 14:39 Temperature 36.7 C Temperature Source Temporal Artery Scan Pulse Rate 85 81 80 Pulse Rate [Right Finger] Pulse Rate from SpO2 Sensor 74 81 Respiratory Rate 20 13 18 Respiratory Effort / Characteristics Non-Labored Spontaneous Respiratory Depth Normal Blood Pressure 197/118 H 150/82 H Blood Pressure [Right Arm] Blood Pressure Mean 144 104 Blood Pressure Mean [Right Arm] Pulse Oximetry 93 92 94 Oxygen Delivery Method Room Air Sepsis Recent Fever Within 48 Hours Yes Sepsis New/Unexplained Change in Mental Status N/A Sepsis Action Taken by Nursing No Action Required 05/27/20 14:40 05/27/20 14:50 05/27/20 15:00 Temperature Temperature Source Pulse Rate 78 72 70 Pulse Rate [Right Finger] Pulse Rate from SpO2 Sensor 78 73 70 Respiratory Rate 17 16 16 Respiratory Effort / Characteristics Respiratory Depth Blood Pressure 165/92 H Blood Pressure [Right Arm] Blood Pressure Mean 116 Blood Pressure Mean [Right Arm] Pulse Oximetry 95 97 97 Oxygen Delivery Method Sepsis Recent Fever Within 48 Hours Sepsis New/Unexplained Change in Mental Status Sepsis Action Taken by Nursing 05/27/20 15:01 05/27/20 15:10 05/27/20 15:20 Temperature Temperature Source Pulse Rate 69 72 73 Pulse Rate [Right Finger] Pulse Rate from SpO2 Sensor 69 68 64 Respiratory Rate 17 18 17 Respiratory Effort / Characteristics Respiratory Depth Blood Pressure Blood Pressure [Right Arm] Blood Pressure Mean Blood Pressure Mean [Right Arm] Pulse Oximetry 97 98 94 Oxygen Delivery Method Sepsis Recent Fever Within 48 Hours Sepsis New/Unexplained Change in Mental Status Sepsis Action Taken by Nursing 05/27/20 15:30 05/27/20 15:31 05/27/20 15:40 Temperature Temperature Source Pulse Rate 72 84 78 Pulse Rate [Right Finger] Pulse Rate from SpO2 Sensor 65 Respiratory Rate 20 18 28 H Respiratory Effort / Characteristics Respiratory Depth Blood Pressure 157/87 H Blood Pressure [Right Arm] Blood Pressure Mean 110 Blood Pressure Mean [Right Arm] Pulse Oximetry 94 Oxygen Delivery Method Sepsis Recent Fever Within 48 Hours Sepsis New/Unexplained Change in Mental Status Sepsis Action Taken by Nursing 05/27/20 16:20 Temperature Temperature Source Pulse Rate Pulse Rate [Right Finger] 70 Pulse Rate from SpO2 Sensor Respiratory Rate 20 Respiratory Effort / Characteristics Non-Labored Respiratory Depth Normal Blood Pressure Blood Pressure [Right Arm] 186/92 H Blood Pressure Mean Blood Pressure Mean [Right Arm] 123 Pulse Oximetry Oxygen Delivery Method Sepsis Recent Fever Within 48 Hours Sepsis New/Unexplained Change in Mental Status Sepsis Action Taken by Nursing Laboratory Data Result diagrams: 05/28/20 06:48 05/29/20 07:11 Lab Results 05/27/20 05/27/20 05/27/20 Range/Units 14:23 14:23 16:21 WBC 10.18 (4.8-10.8) K/uL RBC 4.77 (4.2-5.4) M/uL Hgb 13.4 (12.0-16.0) g/dL Hct 38.6 (37-47) % MCV 80.9 (80-100) fL MCH 28.1 (25-34) pg MCHC 34.7 (32-36) g/dL RDW Std Deviation 41.8 (36.4-46.3) fL RDW Coeff of Ladi 14.0 (11.5-14.5) % Plt Count 418 H (130-400) K/uL MPV 8.9 (7.4-10.4) fL Immature Gran % (Auto) 0.3 % Neut % (Auto) 69.1 % Lymph % (Auto) 19.9 % Benson % (Auto) 8.1 % Eos % (Auto) 1.9 % Baso % (Auto) 0.7 % Neut # (Auto) 7.04 H (1.4-6.5) K/uL Lymph # (Auto) 2.03 (1.2-3.4) K/uL Benson # (Auto) 0.82 H (0.11-0.59) K/uL Eos # (Auto) 0.19 (0-0.5) K/uL Baso # (Auto) 0.07 (0-0.2) K/uL Immature Gran # (Auto) 0.03 H (0.00-0.02) K/uL Sodium 133 L (136-145) mmol/L Potassium 3.3 L (3.5-5.1) mmol/L Chloride 98 (98-107) mmol/L Carbon Dioxide 28 (21-32) mmol/L Anion Gap 7.0 (3-11) BUN 9 (7-18) mg/dl Creatinine 0.91 (0.6-1.2) mg/dl Est Cr Clr Drug Dosing 58.5 ml/min Est GFR ( Amer) 73.6 Est GFR (Non-Af Amer) 63.5 BUN/Creatinine Ratio 9.6 L (10-20) Glucose 131 H (70-99) mg/dl Calcium 12.5 H* (8.5-10.1) mg/dl Phosphorus 4.6 (2.5-4.9) mg/dl Magnesium 1.3 L (1.8-2.4) mg/dl Total Bilirubin 0.4 (0.2-1) mg/dl Direct Bilirubin < 0.1 (0-0.2) mg/dl AST 19 (15-37) U/L ALT 26 (12-78) U/L Alkaline Phosphatase 163 H (45-117) U/L Troponin I < 0.015 (0-0.045) ng/ml Total Protein 8.5 H (6.4-8.2) gm/dl Albumin 4.1 (3.4-5.0) gm/dl Globulin 4.4 H (2.5-4.0) gm/dl Albumin/Globulin Ratio 0.9 (0.9-2) Lipase 108 (73-393) U/L TSH 5.180 H (0.300-4.500) uIu/ml Free T4 0.86 (0.8-1.6) ng/dl Urine Color Yellow Urine Appearance Clear (Clear) Urine pH 7.0 (4.5-7.5) Ur Specific [place] 1.015 (1.000-1.030) Urine Protein Negative (Negative) Urine Glucose (UA) Negative (Negative) Urine Ketones Negative (Negative) Urine Blood Trace-intact H (Negative) Urine Nitrite Negative (Negative) Urine Bilirubin Negative (Negative) Urine Urobilinogen Negative (Negative) Ur Leukocyte Esterase Negative (Negative) Urine RBC 0-4 (0-4) /hpf Urine WBC 0-5 (0-5) /hpf Ur Epithelial Cells 0-5 (0-5) /lpf Urine Bacteria 1+ H (Negative) COVID-19 Eval Order SARS-CoV-2 (PCR) (Negative) Influenza Type A (PCR) (Neg) Influenza Type B (PCR) (Neg) RSV (RT-PCR) (Neg) 05/27/20 05/27/20 Range/Units 16:47 16:47 WBC (4.8-10.8) K/uL RBC (4.2-5.4) M/uL Hgb (12.0-16.0) g/dL Hct (37-47) % MCV (80-100) fL MCH (25-34) pg MCHC (32-36) g/dL RDW Std Deviation (36.4-46.3) fL RDW Coeff of Ladi (11.5-14.5) % Plt Count (130-400) K/uL MPV (7.4-10.4) fL Immature Gran % (Auto) % Neut % (Auto) % Lymph % (Auto) % Benson % (Auto) % Eos % (Auto) % Baso % (Auto) % Neut # (Auto) (1.4-6.5) K/uL Lymph # (Auto) (1.2-3.4) K/uL Benson # (Auto) (0.11-0.59) K/uL Eos # (Auto) (0-0.5) K/uL Baso # (Auto) (0-0.2) K/uL Immature Gran # (Auto) (0.00-0.02) K/uL Sodium (136-145) mmol/L Potassium (3.5-5.1) mmol/L Chloride (98-107) mmol/L Carbon Dioxide (21-32) mmol/L Anion Gap (3-11) BUN (7-18) mg/dl Creatinine (0.6-1.2) mg/dl Est Cr Clr Drug Dosing ml/min Est GFR ( Amer) Est GFR (Non-Af Amer) BUN/Creatinine Ratio (10-20) Glucose (70-99) mg/dl Calcium (8.5-10.1) mg/dl Phosphorus (2.5-4.9) mg/dl Magnesium (1.8-2.4) mg/dl Total Bilirubin (0.2-1) mg/dl Direct Bilirubin (0-0.2) mg/dl AST (15-37) U/L ALT (12-78) U/L Alkaline Phosphatase (45-117) U/L Troponin I (0-0.045) ng/ml Total Protein (6.4-8.2) gm/dl Albumin (3.4-5.0) gm/dl Globulin (2.5-4.0) gm/dl Albumin/Globulin Ratio (0.9-2) Lipase (73-393) U/L TSH (0.300-4.500) uIu/ml Free T4 (0.8-1.6) ng/dl Urine Color Urine Appearance (Clear) Urine pH (4.5-7.5) Ur Specific [place] (1.000-1.030) Urine Protein (Negative) Urine Glucose (UA) (Negative) Urine Ketones (Negative) Urine Blood (Negative) Urine Nitrite (Negative) Urine Bilirubin (Negative) Urine Urobilinogen (Negative) Ur Leukocyte Esterase (Negative) Urine RBC (0-4) /hpf Urine WBC (0-5) /hpf Ur Epithelial Cells (0-5) /lpf Urine Bacteria (Negative) COVID-19 Eval Order CovFluRsv at [facility] SARS-CoV-2 (PCR) NEGATIVE (Negative) Influenza Type A (PCR) Negative (Neg) Influenza Type B (PCR) Negative (Neg) RSV (RT-PCR) Negative (Neg) Administered Medications Discontinued Medications Acetaminophen (Acetaminophen 325 Mg Tab) 650 mg PO Q4H PRN PRN Reason: Pain or Fever Stop: 06/26/20 19:55 Last Admin: 05/28/20 06:01 Dose: 650 mg Documented by: [id number] Amlodipine Besylate (Amlodipine Besylate 5 Mg Tab) 10 mg PO QAM ANA Stop: 06/27/20 08:59 Last Admin: 05/28/20 08:24 Dose: 10 mg Documented by: [id number] Apixaban (Apixaban 5 Mg Tablet) 5 mg PO BID ANA Stop: 06/26/20 20:59 Last Admin: 05/29/20 09:03 Dose: 5 mg Documented by: [id number] Admin: 05/28/20 20:32 Dose: 5 mg Documented by: [id number] Admin: 05/28/20 08:27 Dose: 5 mg Documented by: [id number] Admin: 05/27/20 20:45 Dose: 5 mg Documented by: [id number] Carvedilol (Carvedilol 6.25 Mg Tab) 6.25 mg PO BID ANA Stop: 06/27/20 08:59 Last Admin: 05/29/20 09:03 Dose: 6.25 mg Documented by: [id number] Admin: 05/28/20 20:31 Dose: 6.25 mg Documented by: [id number] Admin: 05/28/20 08:24 Dose: 6.25 mg Documented by: [id number] Diphenhydramine HCl (Diphenhydramine 50 Mg/Ml Vial) 12.5 mg IV NOW STA Stop: 05/27/20 14:08 Last Admin: 05/27/20 14:33 Dose: 12.5 mg Documented by: [id number] Famotidine (Famotidine 20 Mg Tab) 20 mg PO Q24H PRN PRN Reason: GERD Stop: 06/26/20 19:55 Last Admin: 05/27/20 20:46 Dose: 20 mg Documented by: [id number] Hydroxyzine HCl (Hydroxyzine Hcl 10 Mg Tab) 10 mg PO TID PRN PRN Reason: Anxiety Stop: 06/26/20 19:55 Last Admin: 05/28/20 21:15 Dose: 10 mg Documented by: [id number] Admin: 05/28/20 13:54 Dose: 10 mg Documented by: [id number] Admin: 05/28/20 08:28 Dose: 10 mg Documented by: [id number] Admin: 05/27/20 20:45 Dose: 10 mg Documented by: [id number] Sodium Chloride (Nss 1000ml) 1,000 mls @ 999 mls/hr IV .Q1H1M ONE Stop: 05/27/20 15:07 Last Infusion: 05/27/20 19:04 Dose: 0 mls/hr Documented by: [id number] Admin: 05/27/20 14:32 Dose: 999 mls/hr Documented by: [id number] Acetaminophen (Ofirmev) 1,000 mg in 100 mls @ 400 mls/hr IV NOW STA Stop: 05/27/20 14:21 Last Infusion: 05/27/20 19:03 Dose: 0 mls/hr Documented by: [id number] Admin: 05/27/20 14:33 Dose: 400 mls/hr Documented by: [id number] Magnesium Sulfate/Dextrose (Magnesium Sulfate / D5w) 1 gm in 100 mls @ 100 mls/hr IV Q1H ANA Stop: 05/27/20 17:35 Last Infusion: 05/27/20 19:04 Dose: 0 mls/hr Documented by: [id number] Admin: 05/27/20 17:33 Dose: 100 mls/hr Documented by: [id number] Infusion: 05/27/20 17:15 Dose: 100 mls/hr Documented by: [id number] Admin: 05/27/20 16:15 Dose: 100 mls/hr Documented by: [id number] Sodium Chloride (Nss 1000ml) 1,000 mls @ 250 mls/hr IV .Q4H ANA Stop: 06/26/20 15:44 Last Admin: 05/28/20 08:29 Dose: Not Given Documented by: [id number] Infusion: 05/28/20 02:50 Dose: 0 mls/hr Documented by: [id number] Infusion: 05/27/20 23:18 Dose: 250 mls/hr Documented by: [id number] Infusion: 05/27/20 20:49 Dose: 0 mls/hr Documented by: [id number] Admin: 05/27/20 20:01 Dose: 250 mls/hr Documented by: [id number] Sodium Chloride (Nss 1000ml) 1,000 mls @ 80 mls/hr IV .[id number] ANA Stop: 05/28/20 11:14 Last Infusion: 05/28/20 13:55 Dose: 0 mls/hr Documented by: [id number] Admin: 05/28/20 02:01 Dose: 80 mls/hr Documented by: [id number] Ioversol (Optiray 320 125ml) 119 ml IV ONCE ONE Stop: 05/27/20 15:53 Last Admin: 05/27/20 15:53 Dose: 119 ml Documented by: [id number] Levothyroxine Sodium (Levothyroxine Sodium 25 Mcg Tablet) 25 mcg PO DAILYBB ANA Stop: 06/27/20 06:29 Last Admin: 05/29/20 05:48 Dose: 25 mcg Documented by: [id number] Admin: 05/28/20 05:59 Dose: 25 mcg Documented by: [id number] Magnesium Oxide (Magnesium Oxide 400 Mg Tab) 400 mg PO BID ANA Stop: 06/26/20 20:59 Last Admin: 05/29/20 09:03 Dose: 400 mg Documented by: [id number] Admin: 05/28/20 20:32 Dose: 400 mg Documented by: [id number] Admin: 05/28/20 08:26 Dose: 400 mg Documented by: [id number] Admin: 05/27/20 20:45 Dose: 400 mg Documented by: [id number] Metoclopramide HCl (Metoclopramide Hcl Inj 5 Mg/Ml 2 Ml Vial) 5 mg IV ONE ONE Stop: 05/27/20 14:08 Last Admin: 05/27/20 14:32 Dose: 5 mg Documented by: [id number] Pantoprazole Sodium (Pantoprazole 40 Mg Tab) 40 mg PO BID ANA Stop: 06/26/20 20:59 Last Admin: 05/29/20 09:04 Dose: 40 mg Documented by: [id number] Admin: 05/28/20 20:31 Dose: 40 mg Documented by: [id number] Admin: 05/28/20 08:24 Dose: 40 mg Documented by: [id number] Admin: 05/27/20 20:46 Dose: 40 mg Documented by: [id number] Potassium Chloride (Potassium Chloride Crtab 20 Meq Tabcr) 40 meq PO NOW STA Stop: 05/27/20 15:37 Last Admin: 05/27/20 16:09 Dose: 40 meq Documented by: [id number] Potassium Chloride (Potassium Chloride 10 Meq Tabcr) 10 meq PO BID17 ANA Stop: 06/27/20 08:59 Last Admin: 05/29/20 09:03 Dose: 10 meq Documented by: [id number] Admin: 05/28/20 16:23 Dose: 10 meq Documented by: [id number] Admin: 05/28/20 08:25 Dose: 10 meq Documented by: [id number] Primidone (Primidone 50 Mg Tab) 50 mg PO TID ANA Stop: 06/26/20 20:59 Last Admin: 05/29/20 09:03 Dose: 50 mg Documented by: [id number] Admin: 05/28/20 20:31 Dose: 50 mg Documented by: [id number] Admin: 05/28/20 13:54 Dose: 50 mg Documented by: [id number] Admin: 05/28/20 08:26 Dose: 50 mg Documented by: [id number] Admin: 05/27/20 20:46 Dose: 50 mg Documented by: [id number] Ropinirole HCl (Ropinirole Hcl 1 Mg Tablet) 4 mg PO HS ANA Stop: 06/26/20 20:59 Last Admin: 05/28/20 20:33 Dose: 4 mg Documented by: [id number] Admin: 05/27/20 20:47 Dose: 4 mg Documented by: [id number] Simvastatin (Simvastatin 20 Mg Tab) 20 mg PO HS [facility] Stop: 06/26/20 20:59 Last Admin: 05/28/20 20:30 Dose: 20 mg Documented by: [id number] Admin: 05/27/20 20:47 Dose: 20 mg Documented by: [id number] Spironolactone (Spironolactone 25 Mg Tab) 50 mg PO QAM ANA Stop: 06/27/20 08:59 Last Admin: 05/29/20 09:03 Dose: 50 mg Documented by: [id number] Admin: 05/28/20 08:25 Dose: 50 mg Documented by: [id number] Valsartan (Valsartan 80 Mg Tab) 320 mg PO QAM ANA Stop: 06/27/20 08:59 Last Admin: 05/29/20 09:03 Dose: 320 mg Documented by: [id number] Admin: 05/28/20 08:25 Dose: 320 mg Documented by: [id number] Zolpidem Tartrate (Zolpidem Tartrate 5 Mg Tab) 5 mg PO HS PRN PRN Reason: Sleep Stop: 06/26/20 19:55 Last Admin: 05/28/20 20:47 Dose: 5 mg Documented by: [id number] Admin: 05/27/20 20:55 Dose: 5 mg Documented by: [id number] Discharge Plan Visit Data Chief Complaint: Hypertension Stated Complaint: ELEVATED BLOODPRESSURE/NECK PAIN RIGHT SIDE ED Provider: Ludwig Orozco Discharge Problem: Hypertensive urgency, Hypercalcemia, Headache, Hypomagnesemia, Dehydration Patient Disposition: Admitted As Inpatient Discharge Instructions Interventions: ED Discharge Assessment Last Done: 05/27/20 19:32 Discharge Problem: Headache Qualifiers: Headache type: tension-type Headache chronicity pattern: unspecified pattern Intractability: not intractable Qualified Code(s): G44.209 - Tension-type headache, unspecified, not intractable
[2020-05-27 14:46] LABS: Basophils # (auto) 0.07 K/uL (0-0.2); Basophils % (auto) 0.7 %; Eosinophils # (auto) 0.19 K/uL (0-0.5); Eosinophils % (auto) 1.9 %; Hematocrit (blood only) 38.6 % (37-47); Hemoglobin 13.4 g/dL (12.0-16.0); Immature Granulocytes # (auto) 0.03 K/uL (0.00-0.02); Immature Granulocytes % (auto) 0.3 %; Lymphocytes # (auto) 2.03 K/uL (1.2-3.4); Lymphocytes % (auto) 19.9 %; Mean Corpuscular Hemoglobin 28.1 pg (25-34); Mean Corpuscular Hgb Conc 34.7 g/dL (32-36); Mean Corpuscular Volume 80.9 fL (80-100); Mean Platelet Volume 8.9 fL (7.4-10.4); Monocytes # (auto) 0.82 K/uL (0.11-0.59); Monocytes % (auto) 8.1 %; Neutrophils # (auto) 7.04 K/uL (1.4-6.5); Neutrophils % (auto) 69.1 %; Platelet Count 418 K/uL (130-400); RDW Standard Deviation 41.8 fL (36.4-46.3); Red Blood Count 4.77 M/uL (4.2-5.4); White Blood Count 10.18 K/uL (4.8-10.8)
--- NOTE | 2020-05-27 14:48 | XRay Report ---
XR chest 1V portable CLINICAL HISTORY: Atypical chest pain. COMPARISON STUDY: Chest CT February 26, 2020. FINDINGS: Lung volumes are normal. No consolidation is noted. There is no evidence for pulmonary joe a. Cardiomegaly is noted. This is unchanged. There may be calcific tendinitis of the left rotator cuf f. There is elevation of the right humeral head. There is osteoarthritis of both glenohumeral joints. IMPRESSION: No acute cardiopulmonary findings. ACT 112: Negative or not required by law. Electronically signed by: Yuan Petty M.D. 05/27/2020 2:47 PM
[2020-05-27 15:15] LABS: Alanine Aminotransferase 26 U/L (12-78); Albumin Level 4.1 gm/dl (3.4-5.0); Aspartate Aminotransferase 19 U/L (15-37); BUN Creatinine Ratio 9.6 (10-20); Bilirubin Direct < 0.1 mg/dl (0-0.2); Blood Urea Nitrogen 9 mg/dl (7-18); Calcium 12.5 mg/dl (8.5-10.1); Carbon Dioxide 28 mmol/L (21-32); Chloride 98 mmol/L (98-107); Creatinine Clr Calc Pharmacy 58.5 ml/min; Est GFR (African American) 73.6; Est GFR (Non-African American) 63.5; Glucose 131 mg/dl (70-99); Lipase 108 U/L (73-393); Magnesium 1.3 mg/dl (1.8-2.4); Phosphorus 4.6 mg/dl (2.5-4.9); Potassium 3.3 mmol/L (3.5-5.1); Sodium 133 mmol/L (136-145)
[2020-05-27 15:19] LABS: Albumin Globulin Ratio 0.9 (0.9-2); Alkaline Phosphatase 163 U/L (45-117); Bilirubin,Total 0.4 mg/dl (0.2-1); Globulin 4.4 gm/dl (2.5-4.0); Total Protein 8.5 gm/dl (6.4-8.2); Troponin I < 0.015 ng/ml (0-0.045)
[2020-05-27 15:34] LABS: T4 Free Thyroxine 0.86 ng/dl (0.8-1.6)
[2020-05-27] MEDS ORDERED: POTASSIUM CHLORIDE CRTAB 20 MEQ TABCR PO STA (15:36)
[2020-05-27] MEDS ORDERED: OPTIRAY 320 125ml IV ONE (15:52)
--- NOTE | 2020-05-27 16:14 | CT Scan Report ---
UNENHANCED CT OF THE BRAIN; CT ANGIOGRAM OF THE BRAIN; CT ANGIOGRAM OF THE NECK CLINICAL HISTORY: Headache. Hypertension. Neck pain. Dizziness. COMPARISON STUDY: CT angiogram of the head and neck dated 08/13/2017. TECHNIQUE: Unenhanced axial CT scan of the brain is performed. Subsequently, following the IV adminis tration of 119 of [address] [address], CT angiogram of the head and neck was performed from the aortic arch t o the vertex. Images are reviewed in the axial, sagittal, and coronal planes. 3-D MIPS images are cre ated and assessed. IV contrast was administered without complication. All measurements were calculate d based on NASCET criteria. A dose lowering technique was utilized adhering to the principles of ALA RA. CT DOSE: 1054.54 mGy.cm FINDINGS: Brain parenchyma: There is age-related involutional change noting moderate subcortical and periventri cular microangiopathic disease. There is no hemorrhage, mass effect, or evidence of acute territorial ischemia by CT criteria. There is no evidence of enhancing mass lesion on the angiogram phase images . The ventricles, sulci, and cisterns are prominent secondary to involutional change. Crane-white serina er differentiation is preserved. No extra-axial fluid collection is seen. Thoracic aorta: There is mild atherosclerotic calcification of the thoracic aorta. Visualized portion s of the thoracic aorta are normal in caliber. The aortic arch demonstrates standard 3-vessel anatomy . Right carotid arterial system: The right common carotid artery is widely patent. Atherosclerotic plaq ue causes less than 50% stenosis of the proximal right internal carotid artery. The remainder of the right internal carotid artery and the right external carotid artery are patent. Left carotid arterial system: The left common carotid artery is widely patent, as are the left automotive internet sales consultant al and external carotid arteries. Calcified plaque is noted in the carotid bulb. Vertebral arteries: The vertebral arteries are widely patent bilaterally and codominant in the neck. Subclavian arteries: Widely patent bilaterally. Intracranial vasculature: There is atherosclerotic calcification of the cavernous carotid and vertebr al arteries The internal carotid arteries are patent at the skull base, as are the anterior and middl e cerebral arteries bilaterally. The vertebrobasilar system and posterior cerebral arteries are widel y patent. There is mild left-sided dominance. There is no aneurysm, high-grade stenosis, or focal ves paula cut off seen throughout the intracranial circulation. Jugular veins: Patent bilaterally. Dural sinuses: Patent. Lung apices: Partially visualized upper lobe lung parenchyma appears clear. Soft tissues: The visualized pharyngeal soft tissues are normal in appearance noting angiographic pha se technique. The oropharyngeal airway appears widely patent. The salivary and thyroid glands are nor mal in appearance. No cervical lymphadenopathy is seen. Skeletal structures: The skeletal structures are osteopenic. The calvarium appears intact. The cervic al spine is maintained noting multilevel spondylosis. No lytic or blastic lesion is seen. Orbits: The bony orbits are intact. Orbital contents are normal as imaged. Sinuses and mastoids: The paranasal sinuses are clear. The mastoid air cells are well pneumatized. IMPRESSION: 1. There is no hemorrhage, mass effect, or evidence of acute territorial ischemia by CT criteria. 2. Unremarkable CT angiogram of the brain. 3. Unremarkable CT angiogram of the neck. ACT 112: Negative or not required by law. Electronically signed by: Dennys Fontenot M.D. 05/27/2020 4:13 PM
[2020-05-27] MEDS: MAGNESIUM SULFATE / D5W 1 GM/100 ML BAG IV SCH ×2 (16:15→17:33)
[2020-05-27 16:39] LABS: Appearance Urine Clear (Clear); Bilirubin Urine Negative (Negative); Blood Urine Trace-intact (Negative); Color Urine Yellow; Glucose Urine UA Negative (Negative); Ketones Urine Negative (Negative); Leukocyte Esterase Urine Negative (Negative); Nitrite Urine Negative (Negative); Protein Urine Negative (Negative); Specific Gravity Urine 1.015 (1.000-1.030); Urobilinogen Urine Negative (Negative)
[2020-05-27 16:48] LABS: Epithelial Cell Urine 0-5 /lpf (0-5)
[2020-05-27 16:49] LABS: Bacteria Urine 1+ (Negative); RBC Urine 0-4 /hpf (0-4); WBC Urine 0-5 /hpf (0-5)
--- NOTE | 2020-05-27 18:04 | History & Physical Report ---
Date of Service May 27, 2020 Assessment & Plan (1) Hypertensive urgency: If MRI negative for an acute stroke will switch metoprolol succinate for carvedilol twice daily in addition to increasing spironolactone from 25 mg to 50 mg p.o. daily Labile hypertension with 80/40 2 weeks ago (suspect secondary to clonidine use). Recently as high as 218. (2) Hypercalcemia: Suspect secondary to recent tums use. IV fluids overnight and will repeat level in AM prior to any more extensive workup. Treatment for GERD as below Possibly symptomatic due to underlying anxiety and gastrointestinal symptoms (3) GERD (gastroesophageal reflux disease): Recommend small meals due to reduced gastric motility. Continue pantoprazole 40mg PO BID. Add famotidine or Carafate if continued GERD (4) Essential tremor: Continue primidone 50 mg 3 times daily (5) Headache: Suspect tension headache due to increased trapezius muscle spasm Acetaminophen as needed. Stretching exercises. (6) Restless legs syndrome: Continue ropinirole 4 mg p.o. at bedtime. Possibly contributing towards orthostatic hypotension/hypertension/dizziness/headache/gastrointestinal symptoms. Consider reducing dose if symptoms persistent. (7) Anxiety disorder, unspecified: Will defer to PCP to consider SSRI if necessary. (8) Hx pulmonary embolism: Continue apixaban 5 mg p.o. twice daily Admission and Anticipated Discharge Date Admission Date: May 27, 2020 History of Present Illness Chief Complaint: Headache, elevated blood pressure, neck pain Primary Care Provider: Cierra Lincoln MD Brook Alexis is a 69 year old right hand dominant female who presents to the ER with multiple symptoms but mainly concerned about her elevated blood pressure. She reports her problems started 3 days ago with an increase in her blood pressure. She reports usually having a labile blood pressure for which she takes additional clonidine if sBP > 160 but it can dip as low as 80/40 within the last few weeks. Systolic as high as 218 at home. This elevated blood pressure has caused her significant anxiety and she has slept well for the past 2 nights. Her symptoms started yesterday including bilateral aching headache (severity 5/10 currently, 7-8/10 on arrival to ER), right neck pain, little off balance, generally not her normal self, bilateral eyes burning (which she relates to not sleeping) and increased anxiety. She reports having similar symptoms every time her blood pressure increases. She was very concerned she may have a stroke therefore this morning she took double dose of her metoprolol, amlodipine and valsartan however reports this made no difference to her blood pressure therefore decided to come to the ER. In the ER she was noted to be significantly hypercalcemic. She reports taking excessive amounts of tums (x5/day) the last 2 weeks due to worsening reflux but cannot relate to any specific foods that have made this worse. She feel the majority of her symptoms are related to slow GI motility although EGD from February also showed esophagitis at that time. Allergies Allergy/AdvReac Type Severity Reaction Status Date / Time nitroglycerin Allergy Severe pruritis, Verified 05/27/20 15:19 headache, vomiting with patch (see comments) latex Allergy Mild rash Verified 05/27/20 15:19 potassium chloride AdvReac Mild "did not Verified 05/27/20 15:19 tolerate" IV potassium Opioid Analgesics AdvReac Intermediate N/V, "very Uncoded 05/27/20 15:19 sensitive" Home Medications Medication Instructions Recorded Confirmed Type levalbuterol tartrate 2 puff INHALATION Q6 PRN 02/08/18 05/27/20 History ondansetron HCl 4 mg PO TID PRN 02/08/18 05/27/20 History pantoprazole 40 mg PO BID 02/08/18 05/27/20 History ropinirole 4 mg PO HS 07/07/18 05/27/20 History amlodipine 10 mg PO QAM 10/16/19 05/27/20 History cyanocobalamin (vitamin B-12) 1,000 mcg IM MONTHLY 10/16/19 05/27/20 History hydroxyzine HCl 10 mg PO TID PRN 10/16/19 05/27/20 History simvastatin 20 mg PO HS 10/16/19 05/27/20 History valsartan 320 mg PO QAM 10/16/19 05/27/20 History Eliquis 5 mg PO BID 12/25/19 05/27/20 History potassium chloride 10 meq PO DAILY 12/25/19 05/27/20 History spironolactone 25 mg PO QAM 03/24/20 05/27/20 History primidone 50 mg tablet 50 mg PO TID 30 Days #90 tab 04/11/20 05/27/20 Rx clonidine HCl 0.1 mg PO BID PRN 05/27/20 05/27/20 History levothyroxine 25 mcg PO QAM 05/27/20 05/27/20 History metoprolol succinate 50 mg PO QAM 05/27/20 05/27/20 History Past Med/Surg History Medical History Anxiety Atrial fibrillation single episode 09/2019 converted with IV amiodarone in setting of PNA/PE- did not feel that further cardiac evaluation/testing needed from cardiology perspective during admission Balance problem under surveillance by PCP, no definitive diagnosis Depression GERD (gastroesophageal reflux disease) controlled History of blood transfusion 1970s after each childbirth History of endometriosis HTN (hypertension) Hx pulmonary embolism 09/2019- on Eliquis Hyperlipidemia LAMBERTO (iron deficiency anemia) Idiopathic scoliosis Osteoporosis Panic attacks Premature ventricular contractions (PVCs) (VPCs) Reactive airway disease Restless leg Tremor benign essential tremor (left hand)- controlled on primidone Surgical History History of bladder suspension procedure History of cardiac cath X2; 15+ years ago- no stents History of hernia repair open ventral hernia repair: 07/20/18: Grade view 1, MAC#3, ETT 7.0 at [facility] History of surgery ENDOMETRIOMA REMOVAL + PARTIAL UNILATERAL OOPHORECTOMY + APPENDECTOMY History of surgical removal of ganglion cyst LEFT WRIST History of tooth extraction Hx of colonoscopy S/p bilateral blepharoplasty Status post Hank fundoplication Family History Grandmother (Paternal) Family hx of colon cancer Grandmother (Maternal) Family hx of colon cancer Social History Smoking Status: Never smoker Second Hand Exposure: No; Do You Dip or Chew Tobacco: No; Hx Alcohol Use: Yes Alcohol type: wine Hx Substance Use: No Preferred Language: Canadian Communication Ability: Effective Operator Control Room Required: No Beliefs That Will Affect Care: None Current Living Situation: Spouse Other Information That Helps Us Care for You: No Feels Safe at Home: Yes Safety Concerns: Feels Safe At This Time Assistive Devices: Cane and Glasses Review of Systems Review of Systems: All systems reviewed & are unremarkable except as noted in HPI & below Physical Exam Constitutional: WD/WN, vitals as above + obese Eyes: PERRL, conjunctivae normal, anicteric sclerae ENMT: external ear and nose normal, oropharynx normal Neck: trachea midline Respiratory: normal respiratory effort, lungs clear to auscultation Cardiovascular: RRR, no murmur, no edema Gastrointestinal (Abdomen): normal bowel sounds, soft, nontender, no hepatosplenomegaly Musculoskeletal: no cyanosis or clubbing, extremities motor strength 5/5 Skin: no rashes, warm and dry Neurologic: CN's II-XI intact bilaterally, moves all extremities, + focal motor deficit (mild reduced pants presser strength on right) and awake; not confused Speech / Cognition: normal speech Motor/Sensory: + pronator drift (RUE mildly weak compared to left); no tremor Psychiatric: A+Ox3, euthymic affect Genitourinary: no CVA tenderness Results & Data Results & Data ([facility]) Vital Signs (Past 12 Hours) Vital Signs Temp Pulse Pulse Resp BP BP Pulse Ox 05/27/20 16:20 70 20 186/92 H 05/27/20 15:40 78 28 H 05/27/20 15:31 84 18 157/87 H 94 05/27/20 15:30 72 20 05/27/20 15:20 73 17 94 05/27/20 15:10 72 18 98 05/27/20 15:01 69 17 97 05/27/20 15:00 70 16 165/92 H 97 05/27/20 14:50 72 16 97 05/27/20 14:40 78 17 95 05/27/20 14:39 80 18 94 05/27/20 14:37 81 13 150/82 H 92 05/27/20 13:50 36.7 C 85 20 197/118 H 93 [address] OF THE BRAIN; CT ANGIOGRAM OF THE BRAIN; CT ANGIOGRAM OF THE NECK IMPRESSION: 1. There is no hemorrhage, mass effect, or evidence of acute territorial ischemia by CT criteria. 2. Unremarkable CT angiogram of the brain. 3. Unremarkable CT angiogram of the neck. XR chest 1V portable IMPRESSION: No acute cardiopulmonary findings. Medications Administered ER Medications Given: NSS 1L bolus, then 250 ml/hr Acetaminophen 1g IV Metoclopramide 5mg IV Diphenhydramine 12.5mg IV Mg sulphate 1g IV Potassium chloride 40 meq PO ECG Indication: other Rate (beats per minute): 79 Rhythm: normal sinus Findings: + T-wave inversion (inferior) Comparison ECG Date: from (Feb 26, 2020) Change: the following changes noted (Inverted T waves in inferior leads replaced T wave flattening) Code Status & VTE Plan Code Status Full VTE Prophylaxis Plan VTE Prophylaxis will be ordered: Yes PG Care Time/CCT Total # of Minutes Spent Total Time Spent with Patient: Total time spent is greater than 50% in coordination of care (as documented) at patient's floor/unit and/or counseling patient: Coding Level of Care Code 44163 Initial Inpt Care Lvl 3 Diagnoses Hypertensive urgency I16.0 Hypercalcemia E83.52 GERD (gastroesophageal reflux disease) K21.9 Essential tremor G25.0 Headache R51.9 Restless legs syndrome G25.81 Anxiety disorder, unspecified F41.9 Hx pulmonary embolism Z86.711
[2020-05-27 18:06] LABS: Influenza A virus by PCR Negative (Neg); Influenza B virus by PCR Negative (Neg); RSV by PCR Negative (Neg); SARS CoV2 RNA(COVID-19) InHosp NEGATIVE (Negative)
[2020-05-27] MEDS ORDERED: FAMOTIDINE 20 MG TAB PO PRN (19:56)
[2020-05-27] MEDS ORDERED: ACETAMINOPHEN 325 MG TAB PO PRN (19:56)
[2020-05-27] MEDS: SODIUM CHLORIDE 0.9% 1000ML 1,000 ML IV SCH (20:01)
[2020-05-27] MEDS: MAGNESIUM OXIDE 400 MG TAB PO SCH (20:45)
[2020-05-27] MEDS: hydrOXYzine HCl 10 MG TAB PO PRN (20:45)
[2020-05-27] MEDS: APIXABAN 5 MG TABLET PO SCH (20:45)
[2020-05-27] MEDS: PANTOprazole 40 MG TAB PO SCH (20:46)
[2020-05-27] MEDS: PRIMIDONE 50 MG TAB PO SCH (20:46)
[2020-05-27] MEDS: rOPINIRole HCL 1 MG TABLET PO SCH (20:47)
[2020-05-27] MEDS: SIMVASTATIN 20 MG TAB PO SCH (20:47)
[2020-05-27] MEDS: ZOLPIDEM TARTRATE 5 MG TAB PO PRN (20:55)
[2020-05-27] MEDS ORDERED: hydrALAZINE HCL 20 MG/ML VIAL IV PRN (22:44)
[2020-05-27] MEDS ORDERED: SODIUM CHLORIDE 0.9% 1000ML 1,000 ML IV SCH (22:45)
[2020-05-28] MEDS: LEVOTHYROXINE SODIUM 25 MCG TABLET PO SCH (05:59)
[2020-05-28 07:30] LABS: Basophils # (auto) 0.05 K/uL (0-0.2); Basophils % (auto) 0.5 %; Eosinophils # (auto) 0.28 K/uL (0-0.5); Hematocrit (blood only) 36.6 % (37-47); Hemoglobin 12.2 g/dL (12.0-16.0); Immature Granulocytes # (auto) 0.03 K/uL (0.00-0.02); Immature Granulocytes % (auto) 0.3 %; Lymphocytes # (auto) 1.69 K/uL (1.2-3.4); Lymphocytes % (auto) 18.2 %; Mean Corpuscular Hemoglobin 27.5 pg (25-34); Mean Corpuscular Hgb Conc 33.3 g/dL (32-36); Mean Corpuscular Volume 82.4 fL (80-100); Monocytes # (auto) 0.91 K/uL (0.11-0.59); Monocytes % (auto) 9.8 %; Neutrophils # (auto) 6.35 K/uL (1.4-6.5); Neutrophils % (auto) 68.2 %; Platelet Count 324 K/uL (130-400); RDW Coefficient of Variation 14.1 % (11.5-14.5); RDW Standard Deviation 42.6 fL (36.4-46.3); Red Blood Count 4.44 M/uL (4.2-5.4); White Blood Count 9.31 K/uL (4.8-10.8)
[2020-05-28 08:15] LABS: BUN Creatinine Ratio 10.5 (10-20); Calcium 9.1 mg/dl (8.5-10.1); Creatinine Clr Calc Pharmacy 67.1 ml/min; Est GFR (Non-African American) 74.2; Magnesium 1.3 mg/dl (1.8-2.4); Potassium 3.2 mmol/L (3.5-5.1)
[2020-05-28] MEDS: PANTOprazole 40 MG TAB PO SCH ×2 (08:24→20:31)
[2020-05-28] MEDS: carvediloL 6.25 MG TAB PO SCH ×2 (08:24→20:31)
[2020-05-28] MEDS: POTASSIUM CHLORIDE 10 MEQ TABCR PO SCH ×2 (08:25→16:23)
[2020-05-28] MEDS: SPIRONOLACTONE 25 MG TAB PO SCH (08:25)
[2020-05-28] MEDS: VALSARTAN 80 MG TAB PO SCH (08:25)
[2020-05-28] MEDS: MAGNESIUM OXIDE 400 MG TAB PO SCH ×2 (08:26→20:32)
[2020-05-28] MEDS: PRIMIDONE 50 MG TAB PO SCH ×3 (08:26→20:31)
[2020-05-28] MEDS: APIXABAN 5 MG TABLET PO SCH ×2 (08:27→20:32)
--- NOTE | 2020-05-28 08:27 | Magnetic Resonance Report ---
Brain MRI WITHOUT CONTRAST HISTORY: Right upper extremity weakness. TECHNIQUE: Multiplanar multisequence MRI of the brain was performed without the use of contrast. COMPARISON STUDY: Head CT 05/27/2020. Brain MRI 08/14/2017. FINDINGS: There is no mass, hematoma, midline shift, or acute infarct. The paranasal sinuses are damari r. The mastoid air cells are clear. The ventricles and sulci demonstrate mild age-related involutiona l changes. Scattered foci of T2 hyperintensity seen within the periventricular and subcortical white matter are nonspecific but suggestive of moderate microvascular ischemic changes. The major vascular flow voids at the skull base are well-maintained. IMPRESSION: No significant change compared to the prior study. No acute intracranial abnormality. ACT 112: Negative or not required by law. Electronically signed by: Gray Sanders M.D. 05/28/2020 8:26 AM
[2020-05-28] MEDS: hydrOXYzine HCl 10 MG TAB PO PRN ×3 (08:28→21:15)
[2020-05-28] MEDS: SODIUM CHLORIDE 0.9% 1000ML 1,000 ML IV SCH (08:29)
[2020-05-28] MEDS ORDERED: amLODIPine BESYLATE 5 MG TAB PO SCH (09:00)
--- NOTE | 2020-05-28 14:29 | Electrocardiogram Report ---
Test Reason : Blood Pressure : / mmHG Vent. Rate : 079 BPM Atrial Rate : 079 BPM P-R Int : 170 ms QRS Dur : 100 ms QT Int : 390 ms P-R-T Axes : 039 005 002 degrees QTc Int : 447 ms Poor data quality, interpretation may be adversely affected Normal sinus rhythm Normal ECG When compared with ECG of 26-FEB-2020 12:15, Inverted T waves have replaced nonspecific T wave abnormality in Inferior leads Confirmed by Raymond Downs ([id number]) on 05/28/2020 2:29:01 PM Referred By: REFERRED SELF Confirmed By:Raymond Downs
[2020-05-28] MEDS: SIMVASTATIN 20 MG TAB PO SCH (20:30)
[2020-05-28] MEDS: rOPINIRole HCL 1 MG TABLET PO SCH (20:33)
[2020-05-28] MEDS: ZOLPIDEM TARTRATE 5 MG TAB PO PRN (20:47)
--- NOTE | 2020-05-28 20:56 | Hospitalist Progress Note ---
Date of Service May 28, 2020 Assessment & Plan (1) Hypertensive urgency: If MRI negative for an acute stroke will switch metoprolol succinate for carvedilol twice daily in addition to increasing spironolactone from 25 mg to 50 mg p.o. daily Labile hypertension with 80/40 2 weeks ago (suspect secondary to clonidine use). Recently as high as 218. BP appears to be more controlled today. Will monitor BP, if it maintains will discharge in AM. Will likely move amlodipine to on 05/29 (2) Hypercalcemia: Suspect secondary to recent tums use. Treatment for GERD as below Possibly symptomatic due to underlying anxiety and gastrointestinal symptoms. Calcium responded to IVF. (3) GERD (gastroesophageal reflux disease): Recommend small meals due to reduced gastric motility. Continue pantoprazole 40mg PO BID. Add famotidine or Carafate if continued GERD (4) Essential tremor: Continue primidone 50 mg 3 times daily (5) Headache: Suspect tension headache due to increased trapezius muscle spasm Acetaminophen as needed. Stretching exercises. (6) Restless legs syndrome: Continue ropinirole 4 mg p.o. at bedtime. Possibly contributing towards orthostatic hypotension/hypertension/dizziness/headache/gastrointestinal symptoms. Consider reducing dose if symptoms persistent. (7) Anxiety disorder, unspecified: Will defer to PCP to consider SSRI if necessary. (8) Hx pulmonary embolism: Continue apixaban 5 mg p.o. twice daily Admission and Anticipated Discharge Date Admission Date: May 27, 2020 Subjective 69 yo female reports feeling better. She has no new complaints at this time. Review of Systems Review of Systems: All systems reviewed & are unremarkable except as noted in HPI & below Physical Exam Physical Exam: Constitutional: WD/WN, vitals as above + obese Eyes: PERRL, conjunctivae normal, anicteric sclerae ENMT: external ear and nose normal, oropharynx normal Neck: trachea midline Respiratory: normal respiratory effort, lungs clear to auscultation Cardiovascular: RRR, no murmur, no edema Gastrointestinal (Abdomen): normal bowel sounds, soft, nontender, no hepatos plenomegaly Musculoskeletal: no cyanosis or clubbing, extremities motor strength 5/5 Skin: no rashes, warm and dry Neurologic: CN's II-XI intact bilaterally, moves all extremities, + focal motor deficit (mild reduced gas distribution and emergency clerk strength on right) and awake; not confused Speech / Cognition: normal speech Motor/Sensory: + pronator drift (RUE mildly weak compared to left); no tremor Psychiatric: A+Ox3, euthymic affect Genitourinary: no CVA tenderness Results & Data Results & Data ([facility]) Vital Signs (Past 12 Hours) Vital Signs Temp Pulse Pulse Resp BP Pulse Ox 05/28/20 20:39 36.9 C 86 18 120/80 96 05/28/20 15:19 37 C 83 18 128/82 95 05/28/20 14:40 83 05/28/20 11:16 36.8 C 97 H 18 141/85 H 94 PG Care Time/CCT Total # of Minutes Spent Total Time Spent with Patient: Total time spent is greater than 50% in coordination of care (as documented) at patient's floor/unit and/or counseling patient: Coding Level of Care Code 21047 Subseq Hosp Care Lvl 3 Diagnoses Hypertensive urgency I16.0 Hypercalcemia E83.52 GERD (gastroesophageal reflux disease) K21.9 Essential tremor G25.0 Headache R51.9 Restless legs syndrome G25.81 Anxiety disorder, unspecified F41.9 Hx pulmonary embolism Z86.711 Time Spent (min) 35
[2020-05-29] MEDS: LEVOTHYROXINE SODIUM 25 MCG TABLET PO SCH (05:48)
[2020-05-29 08:06] LABS: BUN Creatinine Ratio 17.4 (10-20); Calcium 8.4 mg/dl (8.5-10.1); Creatinine Clr Calc Pharmacy 69.7 ml/min; Est GFR (African American) 88.6; Est GFR (Non-African American) 76.5; Potassium 3.7 mmol/L (3.5-5.1)
[2020-05-29] MEDS: POTASSIUM CHLORIDE 10 MEQ TABCR PO SCH (09:03)
[2020-05-29] MEDS: carvediloL 6.25 MG TAB PO SCH (09:03)
[2020-05-29] MEDS: SPIRONOLACTONE 25 MG TAB PO SCH (09:03)
[2020-05-29] MEDS: PRIMIDONE 50 MG TAB PO SCH (09:03)
[2020-05-29] MEDS: VALSARTAN 80 MG TAB PO SCH (09:03)
[2020-05-29] MEDS: MAGNESIUM OXIDE 400 MG TAB PO SCH (09:03)
[2020-05-29] MEDS: APIXABAN 5 MG TABLET PO SCH (09:03)
[2020-05-29] MEDS: PANTOprazole 40 MG TAB PO SCH (09:04)
[2020-05-29] MEDS ORDERED: amLODIPine BESYLATE 5 MG TAB PO SCH (21:00)
--- NOTE | 2020-06-05 22:47 | Discharge Summary ---
Date of Service May 29, 2020 Admission HPI Per Admitting Provider Brook Alexis is a 69 year old right hand dominant female who presents to the ER with multiple symptoms but mainly concerned about her elevated blood pressure. She reports her problems started 3 days ago with an increase in her blood pressure. She reports usually having a labile blood pressure for which she takes additional clonidine if sBP > 160 but it can dip as low as 80/40 within the last few weeks. Systolic as high as 218 at home. This elevated blood pressure has caused her significant anxiety and she has slept well for the past 2 nights. Her symptoms started yesterday including bilateral aching headache (s everity 07/07 currently, 7-10/07 on arrival to ER), right neck pain, little off balance, generally not her normal self, bilateral eyes burning (which she relates to not sleeping) and increased anxiety. She reports having similar symptoms every time her blood pressure increases. She was very concerned she may have a stroke therefore this morning she took double dose of her metoprolol, amlodipine and valsartan however reports this made no difference to her blood pressure therefore decided to come to the ER. In the ER she was noted to be significantly hypercalcemic. She reports taking excessive amounts of tums (x5/day) the last 2 weeks due to worsening reflux but cannot relate to any specific foods that have made this worse. She feel the majority of her symptoms are related to slow GI motility although EGD from February also showed esophagitis at that time. Principal Diagnosis Hypertensive urgency Discharge Exam Constitutional: WD/WN, vitals as above + obese Eyes: PERRL, conjunctivae normal, anicteric sclerae ENMT: external ear and nose normal, oropharynx normal Neck: trachea midline Respiratory: normal respiratory effort, lungs clear to auscultation Cardiovascular: RRR, no murmur, no edema Gastrointestinal (Abdomen): normal bowel sounds, soft, nontender, no hepatosplenomegaly Musculoskeletal: no cyanosis or clubbing, extremities motor strength 5/5 Skin: no rashes, warm and dry Neurologic: CN's II-XI intact bilaterally, moves all extremities, + focal motor deficit (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) and awake; not confused Speech / Cognition: normal speech Motor/Sensory: + pronator drift (RUE mildly weak compared to left); no tremor Psychiatric: A+Ox3, euthymic affect Genitourinary: no CVA tenderness Discharge Data Allergies Allergy/AdvReac Type Severity Reaction Status Date / Time nitroglycerin Allergy Severe pruritis, Verified 05/27/20 15:19 headache, vomiting with patch (see comments) latex Allergy Mild rash Verified 05/27/20 15:19 potassium chloride AdvReac Mild "did not Verified 05/27/20 15:19 tolerate" IV potassium Opioid Analgesics AdvReac Intermediate N/V, "very Uncoded 05/27/20 15:19 sensitive" Consultations 05/27/20 16:39 ED Decision to Admit Stat Ordered Studies 05/27/20 14:07 CT head/brain wo con Stat 05/27/20 14:13 CT angio head w con Stat CT angio neck with con Stat 05/27/20 18:10 MR brain wo con Urgent Hospital Course (1) Hypertensive urgency: MRI negative for an acute stroke will switch metoprolol succinate for carvedilol twice daily in addition to increasing spironolactone from 25 mg to 50 mg p.o. daily Labile hypertension with 80/40 2 weeks ago (suspect secondary to clonidine use). Recently as high as 218. BP became more controlled. moved amlodipine to at discharge (2) Hypercalcemia: Suspect secondary to recent tums use. Treatment for GERD as below Possibly symptomatic due to underlying anxiety and gastrointestinal symptoms. Calcium responded to IVF. (3) GERD (gastroesophageal reflux disease): Recommend small meals due to reduced gastric motility. Continue pantoprazole 40mg PO BID. Add famotidine or Carafate if continued GERD (4) Essential tremor: Continue primidone 50 mg 3 times daily (5) Headache: Suspect tension headache due to increased trapezius muscle spasm Acetaminophen as needed. Stretching exercises. (6) Restless legs syndrome: Continue ropinirole 4 mg p.o. at bedtime. Possibly contributing towards orthostatic hypotension/hypertension/dizziness/headache/gastrointestinal symptoms. Consider reducing dose if symptoms persistent. (7) Anxiety disorder, unspecified: Will defer to PCP to consider SSRI if necessary. (8) Hx pulmonary embolism: Continue apixaban 5 mg p.o. twice daily Total Time Total Time Spent Total Time Spent (In Minutes): 32 Total Time Includes: Examination of the Patient, Discharge Planning and Medication Reconciliation Discharge Plan Discharge Items Patient Disposition: Home - Self-Care Reason For Visit: HYPERTENSIVE URGENCY, HYPOCALCEMIA RIGHT UPPER EXT Discharge Diagnosis: HYPERTENSIVE URGENCY Activity: Resume your previous activity Non-emergency contact: Primary Care Provider Call non-emergency contact if: you have any medication questions Follow-up/Referrals: Cierra Lincoln MD [Primary Care Provider] - 06/09/20 8:50 am Diet: Regular Addtl Attending Provider Instructions: You were found to have elevated blood pressure. Your blood pressure was better controlled while you were here. Your blood pressure medications were tweaked, and will recommend holding clonidine. Pending Studies at Discharge: No Stand-Alone Forms: My [facility] [employer], Smoking Cessation Medications and DC Order Prescriptions: New spironolactone 25 mg Tablet 50 mg PO QAM Qty: 30 RF: 0 carvedilol 6.25 mg Tablet 6.25 mg PO BID Qty: 60 RF: 0 amlodipine [Norvasc] 5 mg Tablet 10 mg PO PM Qty: 30 RF: 0 Continued primidone 50 mg tablet 50 mg PO TID 30 Days Qty: 90 RF: 5 ondansetron HCl 4 mg tablet 4 mg PO TID PRN (Reason: Nausea) RF: 0 pantoprazole 40 mg tablet,delayed release (DR/EC) 40 mg PO BID RF: 0 levalbuterol tartrate 45 mcg/actuation HFA aerosol inhaler 2 puff Inhalation Q6 PRN (Reason: Shortness Of Breath Or Wheezing) RF: 0 potassium chloride 10 mEq tablet,ER particles/crystals 10 meq PO DAILY RF: 0 Eliquis 5 mg tablet 5 mg PO BID RF: 0 ropinirole 4 mg Tablet 4 mg PO HS RF: 0 simvastatin 20 mg tablet 20 mg PO HS RF: 0 cyanocobalamin (vitamin B-12) 1,000 mcg/mL solution 1,000 mcg IM MONTHLY RF: 0 hydroxyzine HCl 10 mg tablet 10 mg PO TID PRN (Reason: Anxiety) RF: 0 valsartan 320 mg tablet 320 mg PO QAM RF: 0 levothyroxine 25 mcg tablet 25 mcg PO QAM RF: 0 Discontinued amlodipine 10 mg tablet 10 mg PO QAM RF: 0 spironolactone 25 mg Tablet 25 mg PO QAM RF: 0 clonidine HCl 0.1 mg tablet 0.1 mg PO BID PRN (Reason: SBP >160 OR DBP >90) RF: 0 metoprolol succinate 50 mg tablet extended release 24 hr 50 mg PO QAM RF: 0 Discharge Orders: Discharge Order (Routine); Ordered 05/29/20 Ordered By: Ion Pena Admission Data Admit Date/Time: 05/27/20 18:25 Attending Provider: Ion Pena Admit Provider: Timi Dumont Primary Care Provider: Cierra Lincoln Other Interventions: Discharge Summary Assessment (RN) Last Done: 05/29/20 11:41 Coding Level of Care Code D/C Day Management >30 mins Diagnoses Hypertensive urgency I16.0 Hypercalcemia E83.52 GERD (gastroesophageal reflux disease) K21.9 Essential tremor G25.0 Headache R51.9 Restless legs syndrome G25.81 Anxiety disorder, unspecified F41.9 Hx pulmonary embolism Z86.711
== END 2020-05-29 12:42 | disposition home or self-care (01) ==
LOC: ED 13:48 → INTOOBSV 18:25 → SUATTDRO 18:25 → 2N 18:25

== ENCOUNTER 2023-08-10 08:34 | Observation (INO) ==
--- NOTE | 2023-08-10 08:48 | Emergency Department Note ---
Impression & Plan Pulmonary emboli, Chest pain, Noncompliance with medication regimen ED Provider Note NAME: MIGUEL ROSALES AGE: 72 SEX: F : 1950 ARRIVES VIA: Walk-In INFORMANT: Patient, triage note, , prior records ED PROVIDER(S): Scott Foster MD CHIEF COMPLAINT: Chest pain, shortness of breath MEDICAL DECISION MAKING: Patient presents with chest pains and shortness of breath. IV was established and blood work was obtained along with a D-dimer EKG troponin. Initial EKG with PVCs but no signs of obvious ischemia. Troponin and BNP negative. Patient with a normal white count H&H and platelet count. Kidney function unremarkable. Repeat troponin ordered and bio fire negative. D-dimer is elevated so CT angiography of the chest was ordered. Patient was noted to have segmental and subsegmental right lower lobe PEs. I did speak with Dr. Luis with anticoagulation specialist stated the patient may benefit from Lovenox to Coumadin transition due to concern for cost and compliance. I did convey this to the patient subsequently did speak with the inpatient hospital service Con Mukherjee PA-C and Dr. Dumont. Patient was ordered Lovenox 1 mg/kg twice daily. Critical Care: I have personally spent 35 minutes of critical care time in direct management of this patient. This includes bedside care, interpretation of diagnostic studies, and testing, discussion with consultants, patient, and family members, and other require inpatient management activities. This 35 minutes is in excess of all separately billable procedures. Discussion w/ other healthcare providers: Dr. Luis with anticoagulation specialist Con Wright PA-C and Dr. Dumont Prior /Outside records reviewed: I reviewed a emergency department visit note from July [address] Foster. The patient was seen for leg swelling at that time. She was noted to have a Romero's cyst of the knee at that time. No evidence of DVT. Differential diagnosis: Cardiac ischemia, aortic dissection, pulmonary embolism, pneumothorax, pneumonia, pericarditis, myocarditis, GERD, cholecystitis, pancreatitis, musculoskeletal, as well as other pathologies were considered. Diagnostics, as interpreted by me: ECG: Sinus with PVCs, rate of 80, normal intervals, normal axis no ST elevations Cardiac monitoring: An order was placed for continuous cardiac monitoring. The monitor shows a rate of 82 with sinus rhythm. Patient was placed on pulse oximetry Medical decision rules: Heart score, Wells score Imaging studies: I informally interpreted the patient's Chest x-ray does not show obvious pneumonia or pneumothorax with formal report to follow. HPI: Patient presents due to concern for chest and arm pain. The patient states she has had associated shortness of breath. Patient states that her chest pain is left-sided currently 7 out of 10 described as achy is intermittent in nature. States that she does not specifically note that the pain worsens with any exertion or activity. Patient states that the pain will go to her left arm. The patient has had nonproductive cough. Patient states that symptoms been ongoing the last 2 to 3 days. Patient states that her pain has not really changed but that he she believes her breathing is worse. She reportedly was told that she had a heart murmur about 10 days ago during a wellness visit and has a pending echo. The patient does have associated ROMANO. Patient does take Eliquis but ran out of it about 2 to 3 days prior. No falls or trauma. Patient believes that her legs are more swollen. Patient denies any asymmetry. Patient states that she is not currently on a diuretic. PAST MEDICAL HISTORY: See Below PAST SURGICAL HISTORY: See Below SOCIAL HISTORY: See Below HOME MEDICATIONS: See Below ALLERGIES: See Below VITALS: See Below PHYSICAL EXAMINATION: GENERAL: NAD, non-toxic. EYE EXAM: Normal conjunctiva. PERRL, no anisocoria and EOM's grossly intact w/o pain. OROPHARYNX: Moist mucus membranes, false teeth in place. NECK: Trachea midline, no stridor. Supple, no nuchal rigidity, no adenopathy, non-tender. No signs of meningismus. FROM of the neck with good chin to chest and neck extension. LUNGS: Clear to auscultation. Normal chest wall mechanics. HEART: NSR, no MRG. ABDOMEN: Abdomen soft, non-tender, no masses, no rebound or guarding. BACK: No CVA TTP. SKIN: No rashes and no bruising. UPPER EXTREMITIES: Upper extremities are grossly normal. LOWER EXTREMITIES: Grossly normal, trace pretibial edema without calf pain or erythema. NEURO EXAM: A&O x3, cranial nerves II-XII grossly intact, normal speech, moves all 4 extremities. Past Med/Surg History Problem List Left knee pain (Acute) Obesity Altered mental status Chest pain Lethargic Weakness generalized (Chronic) Restless legs syndrome (Chronic) Panic disorder (Chronic) Major depressive disorder, single episode, unspecified (Chronic) Lumbago (Chronic) Hypokalemia (Chronic) Hyperlipidemia, unspecified (Chronic) Dyspnea (Chronic) Chronic pain of left knee (Chronic) Anxiety disorder, unspecified (Chronic) Ataxia (Chronic) Essential tremor Cerebrovascular disease Peripheral neuropathy Pulmonary embolism (Acute) Chest pain (Acute) Pneumonia (Acute) Abnormal CT scan, pelvis Endometrial thickening on ultrasound Hypercalcemia Hypertensive urgency Headache Hypertensive urgency (Acute) Hypercalcemia (Acute) Headache (Acute) Hypomagnesemia (Acute) Dehydration (Acute) Perioral tremor COVID-19 (Acute) History of colon polyps Encounter for pre-operative examination Colon cancer screening Urinary incontinence Change in bowel movement Osteoarthritis of right foot Hallux valgus (acquired), right foot Hammertoe of second toe of right foot Pain in right foot Hx pulmonary embolism 09/2019- on Eliquis Idiopathic scoliosis (Chronic) Status post Hank fundoplication Depression GERD (gastroesophageal reflux disease) has chronic cough HTN (hypertension) Medical History Anxiety and depression History of COVID-19 11/2020; cough, congestion, loss of taste, fatigue; c/o ongoing fatigue Atrial fibrillation single episode 09/2019 converted with IV amiodarone in setting of PNA/PE Follows with [facility] Cardiology Osteoporosis PAF (paroxysmal atrial fibrillation) Hyponatremia Tremor benign essential tremor (left hand)- controlled History of blood transfusion after each childbirth--last 1984 Restless leg Balance problem under surveillance by PCP, no definitive diagnosis History of endometriosis Panic attacks Premature ventricular contractions (PVCs) (VPCs) Hyperlipidemia Reactive airway disease LAMBERTO (iron deficiency anemia) Surgical History H/O foot surgery Right foot first tarsometatarsal joint arthrodesis with application of Lapiplasty plates History of anesthesia reaction difficulty waking History of esophagogastroduodenoscopy (EGD) Hx of colonoscopy last 05/2021 @ [facility] History of surgery ENDOMETRIOMA REMOVAL + PARTIAL UNILATERAL OOPHORECTOMY + APPENDECTOMY History of hernia repair open ventral hernia repair: 07/20/18: Grade view 1, MAC#3, ETT 7.0 at [facility] History of bladder suspension procedure History of tooth extraction History of surgical removal of ganglion cyst LEFT WRIST S/p bilateral blepharoplasty History of cardiac cath X2; 15+ years ago- no stents Family History Grandmother (Paternal) Family hx of colon cancer Grandmother (Maternal) Family hx of colon cancer Other No family history of adverse response to anesthesia Social History Smoking Status: Never smoker Second Hand Exposure: No; Do You Dip or Chew Tobacco: No; Hx Alcohol Use: Yes Alcohol type: wine Preferred Language: Urdu Communication Ability: Effective Core Manager Required: No Beliefs That Will Affect Care: None Current Living Situation: Spouse Feels Safe at Home: Yes Assistive Devices: Cane, Denture - Upper, Denture - Lower and Glasses Allergies Allergies Allergy/AdvReac Type Severity Reaction Status Date / Time nitroglycerin Allergy Severe pruritis, Verified 09/16/22 12:40 headache, vomiting with patch (see comments) latex Allergy Mild rash Verified 09/16/22 12:40 potassium chloride AdvReac Mild "did not Verified 09/16/22 12:40 tolerate" IV potassium Opioid Analgesics AdvReac Intermediate N/V, "very Uncoded 09/16/22 12:40 sensitive" Home Meds Home Medications Medication Instructions Recorded Confirmed ondansetron HCl 4 mg tablet 4 mg PO TID PRN Nausea 02/08/18 09/16/22 pantoprazole 40 mg tablet,delayed 40 mg PO BID 02/08/18 09/16/22 release cyanocobalamin (vitamin B-12) 1,000 mcg IM MONTHLY 10/16/19 09/16/22 1,000 mcg/mL injection solution hydroxyzine HCl 10 mg tablet 10 mg PO TID 10/16/19 09/16/22 simvastatin 20 mg tablet 20 mg PO HS 10/16/19 09/16/22 apixaban 5 mg tablet (Eliquis) 5 mg PO BID 12/25/19 09/16/22 amlodipine 10 mg tablet 10 mg PO QPM 12/04/20 09/16/22 ropinirole 3 mg tablet 3 mg PO HS 12/04/20 09/16/22 metoprolol succinate 25 mg 25 mg PO HS 06/22/21 09/16/22 tablet,extended release 24 hr (Toprol XL) levothyroxine 50 mcg tablet See Rx Instructions .Route .COMPLEX 02/05/22 09/16/22 sucralfate 1 gram tablet 1 g PO ACHS 06/29/22 09/16/22 famotidine 20 mg tablet 40 mg PO BID 08/14/22 09/16/22 hydralazine 10 mg tablet 10 mg PO BID 08/14/22 09/16/22 ropinirole 4 mg tablet 4 mg PO HS 08/14/22 09/16/22 Previous Rx's Medication Instructions Recorded bumetanide 0.5 mg tablet 0.5 mg PO Q OTHER DAY #9 tabs 08/14/22 gabapentin 100 mg capsule 200 mg (2 x 100 mg) PO TID 30 days 07/27/23 #180 caps Results & Data (ED) Vital Signs Vital Signs - 24 hr 08/10/23 08:41 08/10/23 08:54 08/10/23 08:55 Temperature 36.9 C Temperature Source Temporal Artery Scan Pulse Rate 84 83 Pulse Rate from SpO2 Sensor Pulse Rhythm Regular Pulse Strength Normal Respiratory Rate 20 Respiratory Effort / Characteristics Non-Labored Spontaneous Non-Labored Spontaneous Respiratory Depth Normal Normal Respiratory Pattern Regular Blood Pressure 122/76 Blood Pressure Mean 91 Blood Pressure Position Sitting Pulse Oximetry 99 Oxygen Delivery Method Room Air Room Air Sepsis Recent Fever Within 48 Hours No Sepsis New/Unexplained Change in Mental Status No Sepsis Action Taken by Nursing No Action Required 08/10/23 09:05 08/10/23 09:33 08/10/23 10:06 Temperature Temperature Source Pulse Rate 83 75 73 Pulse Rate from SpO2 Sensor 74 73 Pulse Rhythm Regular Pulse Strength Respiratory Rate 20 19 16 Respiratory Effort / Characteristics Respiratory Depth Respiratory Pattern Blood Pressure 106/68 120/69 Blood Pressure Mean 80 86 Blood Pressure Position Pulse Oximetry 99 94 93 Oxygen Delivery Method Room Air Sepsis Recent Fever Within 48 Hours Sepsis New/Unexplained Change in Mental Status Sepsis Action Taken by Nursing 08/10/23 11:00 08/10/23 11:30 Temperature Temperature Source Pulse Rate 75 70 Pulse Rate from SpO2 Sensor 75 Pulse Rhythm Pulse Strength Respiratory Rate 16 17 Respiratory Effort / Characteristics Respiratory Depth Respiratory Pattern Blood Pressure 105/69 123/85 Blood Pressure Mean 81 97 Blood Pressure Position Pulse Oximetry 95 Oxygen Delivery Method Sepsis Recent Fever Within 48 Hours Sepsis New/Unexplained Change in Mental Status Sepsis Action Taken by Long Term Medications Current Medication List: was personally reviewed by me Laboratory Data Attestation: I reviewed the patient's lab results. 08/10/23 09:02 08/10/23 09:02 Lab Results 08/10/23 08/10/23 08/10/23 Range/Units 09:02 09:10 11:14 WBC 10.01 (4.8-10.8) K/ul RBC 4.98 (4.20-5.40) M/uL Hgb 12.6 (12.0-16.0) g/dl Hct 39.9 (37.0-47.0) % MCV 80.1 (80.0-100.0) fL MCH 25.3 (25.0-34.0) pg MCHC 31.6 L (32.0-36.0) g/dL RDW Std Deviation 43.9 (36.4-46.3) fL RDW Coeff of Ladi 15.3 H (11.5-14.5) % Plt Count 357 (130-400) K/uL MPV 9.4 (9.4-12.4) fL Immature Gran % (Auto) 0.5 % Neut % (Auto) 69.2 % Lymph % (Auto) 19.8 % [place] % (Auto) 6.9 % Eos % (Auto) 2.6 % Baso % (Auto) 1.0 % Neut # (Auto) 6.93 H (1.40-6.50) K/uL Lymph # (Auto) 1.98 (1.20-3.40) K/uL [place] # (Auto) 0.69 H (0.11-0.59) K/uL Eos # (Auto) 0.26 (0.00-0.50) K/uL Baso # (Auto) 0.10 (0.00-0.20) K/uL Immature Gran # (Auto) 0.05 (0.01-0.20) K/uL PT 10.3 (9.0-12.0) Seconds INR 0.9 (0.9-1.1) APTT 25 (21-31) Seconds PTT Ratio 0.9 D-Dimer 1320 H* (0-500) ug/L FEU Sodium 138 (136-145) mmol/L Potassium 3.9 (3.5-5.1) mmol/L Chloride 105 (98-107) mmol/L Carbon Dioxide 23 (21-32) mmol/L Anion Gap 10 (3-11) BUN 23 (6-23) mg/dl Creatinine 0.92 (0.6-1.2) mg/dl Est Cr Clr Drug Dosing Not Reportable Est GFR ( Amer) 71.1 ml/min Est GFR (Non-Af Amer) 61.3 ml/min BUN/Creatinine Ratio 25.0 H (10-20) Glucose 134 H (70-99(Fasting)) mg/dl Calcium 9.7 (8.6-10.3) mg/dl Total Bilirubin 0.5 (0.2-1.0) mg/dl AST 19 (13-39) U/L ALT 15 (7-52) U/L Alkaline Phosphatase 108 H (34-104) U/L Troponin I High Sens 9.9 7.3 (0-14) pg/ml B-Natriuretic Peptide 44 (0-100) pg/ml Total Protein 8.2 (6.0-8.3) gm/dl Albumin 4.5 (3.4-5.0) gm/dl Globulin 3.7 (2.5-4.0) gm/dl Albumin/Globulin Ratio 1.2 (0.9-2) Lipase 28 (11-82) U/L Adenovirus (PCR) Not Detected (NotDetected) B. pertussis DNA (PCR) Not Detected (NotDetected) B.parapertussis DNA PCR Not Detected (NotDetected) C. pneumoniae DNA (PCR) Not Detected (NotDetected) Coronavirus OC43 (PCR) Not Detected (NotDetected) Coronavirus HKU1 (PCR) Not Detected (NotDetected) Coronavirus 229E (PCR) Not Detected (NotDetected) SARS-CoV-2 (PCR) Not Detected (NotDetected) Coronavirus NL63 (PCR) Not Detected (NotDetected) Human Metapneumovir PCR Not Detected (NotDetected) Influenza Type A (PCR) Not Detected (NotDetected) Influenza Type B (PCR) Not Detected (NotDetected) M. pneumoniae (PCR) Not Detected (NotDetected) Parainfluenza 1 (PCR) Not Detected (NotDetected) Parainfluenza 2 (PCR) Not Detected (NotDetected) Parainfluenza 3 (PCR) Not Detected (NotDetected) Parainfluenza 4 (PCR) Not Detected (NotDetected) RSV (PCR) Not Detected (NotDetected) Entero/Rhino (PCR) Not Detected (NotDetected) Administered Medications Discontinued Medications Ioversol (Optiray 320 125ml) 118 ml IV ONCE ONE Stop: 08/10/23 10:33 Last Admin: 08/10/23 10:33 Dose: 118 ml Documented By: [facility] Imaging Data Radiologist's Impression: Chest X-Ray 08/10/23 09:01 XR chest 1V portable HISTORY: 72 years-old Female Chest pain, nonspecific acute chest pain COMPARISON: 08/14/2022 TECHNIQUE: AP view of the chest FINDINGS: Cardiomediastinal and hilar silhouettes are unchanged. Mild chronic interstitial coarsening. No pneumothorax, pleural effusion or lobar airspace consolidation. Bones appear grossly intact. Right-sided rotator cuff calcific tendinosis. IMPRESSION: Cardiomegaly with chronic interstitial coarsening. ACT 112: Negative or not required by law. The above report was generated using voice recognition software. It may contain grammatical, syntax or spelling errors. Electronically signed by: John Valdez M.D. 08/10/2023 9:49 AM Chest CTA 08/10/23 10:16 CT ANGIOGRAPHY OF THE CHEST, PULMONARY EMBOLUS PROTOCOL CLINICAL HISTORY: PE, +dimer, off meds COMPARISON STUDY: Chest CT February 26, 2020. Chest radiograph performed earlier today. TECHNIQUE: Following IV administration of 118 mL of Optiray, helical axial images of the chest were obtained utilizing the pulmonary embolus protocol. Maximal intensity projections and sagittal and coronal reformats were viewed on an independent 3D workstation. IV contrast was administered without complication. Automated exposure control was utilized for the study. A dose lowering technique was utilized adhering to the principles of ALARA. CT DOSE: 726.85 mGy.cm FINDINGS: There are several segmental and subsegmental pulmonary emboli within the right lower lobe. No central pulmonary emboli are present. The heart is moderately enlarged. No thoracic aortic dissection. There is no thoracic lymphadenopathy. Central airways are patent. There is no pneumothorax or pleural effusion. Lungs are suboptimally assessed due to respiratory motion. Groundglass favor atelectasis. There is no evidence for pulmonary infarct. Visualized portions of the upper abdomen are unremarkable. IMPRESSION: 1. Several segmental and subsegmental pulmonary emboli within the right lower lobe. 2. Cardiomegaly. ACT 112: Negative or not required by law. Electronically signed by: Yuan Petty M.D. 08/10/2023 10:59 AM Discharge Plan Visit Data Chief Complaint: Chest Pain Stated Complaint: CHEST PAINS, SOB, LEFT ARM PAIN , COUGHING ED Provider: Scott Foster Discharge Problem: Pulmonary emboli, Chest pain, Noncompliance with medication regimen Forms Stand Alone Forms: [facility] [place] Prescriptions Prescriptions: No Action gabapentin 100 mg capsule 200 mg PO TID 30 Days Qty: 180 5RF Patient Comments: PT ONLY TAKING 100MG TID ondansetron HCl 4 mg tablet 4 mg PO TID PRN (Reason: Nausea) pantoprazole 40 mg tablet,delayed release (DR/EC) 40 mg PO BID Eliquis 5 mg tablet 5 mg PO BID Rx Instructions: LAST FILLED 04/23/22 FOR 30 DAYS/60 TABS. simvastatin 20 mg tablet 20 mg PO HS Rx Instructions: LAST FILLED 12/07/21 FOR 90 DAYS/90 TABS. cyanocobalamin (vitamin B-12) 1,000 mcg/mL solution 1,000 mcg IM MONTHLY hydroxyzine HCl 10 mg tablet 10 mg PO TID Rx Instructions: LAST FILLED 07/10/22 FOR 30 DAYS/90 TABS. ropinirole 3 mg tablet 3 mg PO HS Rx Instructions: FILLED 08/11/22 amlodipine 10 mg tablet 10 mg PO QPM metoprolol succinate [Toprol XL] 25 mg Tablet Extended Release 24 Hr 25 mg PO HS levothyroxine 50 mcg Tablet See Rx Instructions .ROUTE .COMPLEX Rx Instructions: LAST FILLED 10/14/21 FOR 90 DAYS. TAKES 50 MCG EVERY DAY, ON SUNDAYS TAKES 100 MCG. sucralfate 1 gram Tablet 1 g PO ACHS hydralazine 10 mg tablet 10 mg PO BID famotidine 20 mg tablet 40 mg PO BID ropinirole 4 mg tablet 4 mg PO HS Rx Instructions: FILLED 08/11/22 bumetanide 0.5 mg tablet 0.5 mg PO Q OTHER DAY Qty: 9 0RF Rx Instructions: Tuesday dosing Referrals Referrals: Cierra Lincoln MD [Primary Care Provider] - Discharge Problem: Pulmonary emboli Qualifiers: Pulmonary embolism type: other Chronicity: acute Acute cor pulmonale presence: without acute cor pulmonale Qualified Code(s): I26.99 - Other pulmonary embolism without acute cor pulmonale Chest pain Qualifiers: Chest pain type: unspecified Qualified Code(s): R07.9 - Chest pain, unspecified
[2023-08-10 09:28] LABS: Eosinophils # (auto) 0.26 K/uL (0.00-0.50); Eosinophils % (auto) 2.6 %; Hematocrit (blood only) 39.9 % (37.0-47.0); Hemoglobin 12.6 g/dl (12.0-16.0); Immature Granulocytes # (auto) 0.05 K/uL (0.01-0.20); Immature Granulocytes % (auto) 0.5 %; Lymphocytes # (auto) 1.98 K/uL (1.20-3.40); Lymphocytes % (auto) 19.8 %; Mean Corpuscular Hemoglobin 25.3 pg (25.0-34.0); Mean Corpuscular Hgb Conc 31.6 g/dL (32.0-36.0); Mean Corpuscular Volume 80.1 fL (80.0-100.0); Mean Platelet Volume 9.4 fL (9.4-12.4); Monocytes # (auto) 0.69 K/uL (0.11-0.59); Monocytes % (auto) 6.9 %; Neutrophils # (auto) 6.93 K/uL (1.40-6.50); Neutrophils % (auto) 69.2 %; Platelet Count 357 K/uL (130-400); RDW Coefficient of Variation 15.3 % (11.5-14.5); RDW Standard Deviation 43.9 fL (36.4-46.3); Red Blood Count 4.98 M/uL (4.20-5.40); White Blood Count 10.01 K/ul (4.8-10.8)
[2023-08-10 09:41] LABS: Alanine Aminotransferase 15 U/L (7-52); Albumin Globulin Ratio 1.2 (0.9-2); Albumin Level 4.5 gm/dl (3.4-5.0); Alkaline Phosphatase 108 U/L (34-104); Anion Gap 10 (3-11); Aspartate Aminotransferase 19 U/L (13-39); Bilirubin,Total 0.5 mg/dl (0.2-1.0); Blood Urea Nitrogen 23 mg/dl (6-23); Calcium 9.7 mg/dl (8.6-10.3); Carbon Dioxide 23 mmol/L (21-32); Chloride 105 mmol/L (98-107); Est GFR (African American) 71.1 ml/min; Est GFR (Non-African American) 61.3 ml/min; Globulin 3.7 gm/dl (2.5-4.0); Glucose 134 mg/dl (70-99(Fasting)); Lipase 28 U/L (11-82); Potassium 3.9 mmol/L (3.5-5.1); Sodium 138 mmol/L (136-145); Total Protein 8.2 gm/dl (6.0-8.3)
[2023-08-10 09:47] LABS: Troponin I High Sensitivity 9.9 pg/ml (0-14)
--- NOTE | 2023-08-10 09:51 | XRay Report ---
XR chest 1V portable HISTORY: 72 years-old Female Chest pain, nonspecific acute chest pain COMPARISON: 08/14/2022 TECHNIQUE: AP view of the chest FINDINGS: Cardiomediastinal and hilar silhouettes are unchanged. Mild chronic interstitial coarsening. No pneum othorax, pleural effusion or lobar airspace consolidation. Bones appear grossly intact. Right-sided r otator cuff calcific tendinosis. IMPRESSION: Cardiomegaly with chronic interstitial coarsening. ACT 112: Negative or not required by law. The above report was generated using voice recognition software. It may contain grammatical, syntax o r spelling errors. Electronically signed by: John Valdez M.D. 08/10/2023 9:49 AM
[2023-08-10 09:56] LABS: INR 0.9 (0.9-1.1); Partial Thromboplastin Ratio 0.9; Partial Thromboplastin Time 25 Seconds (21-31); Prothrombin Time 10.3 Seconds (9.0-12.0)
--- NOTE | 2023-08-10 09:58 | Electrocardiogram Report ---
Test Reason : Blood Pressure : / mmHG Vent. Rate : 080 BPM Atrial Rate : 080 BPM P-R Int : 182 ms QRS Dur : 090 ms QT Int : 388 ms P-R-T Axes : 054 047 068 degrees QTc Int : 447 ms Sinus rhythm with frequent Premature ventricular complexes Nonspecific T wave abnormality Abnormal ECG When compared with ECG of 14-AUG-2022 15:39, Premature ventricular complexes are now Present Nonspecific T wave abnormality no longer evident in Inferior leads Nonspecific T wave abnormality no longer evident in Anterior leads Confirmed by Julio Harper ([id number]) on 08/10/2023 9:58:24 AM Referred By: Confirmed By:Jono Haprer
[2023-08-10 10:10] LABS: D Dimer 1320 ug/L FEU (0-500)
[2023-08-10 10:11] LABS: Adenovirus PCR Not Detected (NotDetected); Bordetella parapertussis PCR Not Detected (NotDetected); Bordetella pertussis PCR Not Detected (NotDetected); Chlamydia pneumoniae PCR Not Detected (NotDetected); Coronavirus 229E PCR Not Detected (NotDetected); Coronavirus CoV-2 (COVID19)PCR Not Detected (NotDetected); Coronavirus HKU1 PCR Not Detected (NotDetected); Coronavirus NL63 PCR Not Detected (NotDetected); Coronavirus OC43PCR Not Detected (NotDetected); Human Metapneumovirus PCR Not Detected (NotDetected); Influenza A PCR Not Detected (NotDetected); Influenza B PCR Not Detected (NotDetected); Mycoplasma pneumoniae PCR Not Detected (NotDetected); Parainfluenza Virus 1 PCR Not Detected (NotDetected); Parainfluenza Virus 2 PCR Not Detected (NotDetected); Parainfluenza Virus 3 PCR Not Detected (NotDetected); Parainfluenza Virus 4 PCR Not Detected (NotDetected); Respiratory Syncytial VirusPCR Not Detected (NotDetected); Rhinovirus/Enterovirus PCR Not Detected (NotDetected)
[2023-08-10] MEDS: OPTIRAY 320 125ml IV ONE (10:33)
--- NOTE | 2023-08-10 11:00 | CT Scan Report ---
CT ANGIOGRAPHY OF THE CHEST, PULMONARY EMBOLUS PROTOCOL CLINICAL HISTORY: PE, +dimer, off meds COMPARISON STUDY: Chest CT February 26, 2020. Chest radiograph performed earlier today. TECHNIQUE: Following IV administration of 118 mL of Optiray, helical axial images of the chest were o btained utilizing the pulmonary embolus protocol. Maximal intensity projections and sagittal and cor onal reformats were viewed on an independent 3D workstation. IV contrast was administered without co mplication. Automated exposure control was utilized for the study. A dose lowering technique was ut ilized adhering to the principles of ALARA. CT DOSE: 726.85 mGy.cm FINDINGS: There are several segmental and subsegmental pulmonary emboli within the right lower lobe. No central pulmonary emboli are present. The heart is moderately enlarged. No thoracic aortic dissec tion. There is no thoracic lymphadenopathy. Central airways are patent. There is no pneumothorax or p leural effusion. Lungs are suboptimally assessed due to respiratory motion. Groundglass favor atelect asis. There is no evidence for pulmonary infarct. Visualized portions of the upper abdomen are unrema rkable. IMPRESSION: 1. Several segmental and subsegmental pulmonary emboli within the right lower lobe. 2. Cardiomegaly. ACT 112: Negative or not required by law. Electronically signed by: Yuan Petty M.D. 08/10/2023 10:59 AM
--- NOTE | 2023-08-10 11:47 | History & Physical Report ---
Date of Service August 10, 2023 Assessment & Plan (1) Pulmonary embolism: Plan: Admit to med/telemetry on pulse oximetry. Currently hemodynamically stable, stable on room air, nontoxic-appearing Presented to the ED today due to approximately 4 days of increased dyspnea on exertion, shortness of breath at rest, left-sided chest/arm pain with exertion. Found to have several segmental and subsegmental pulmonary emboli within the right lower lobe Patient has had 2 high-sensitivity troponin levels within normal limits, no acute ST segment or T wave changes on EKG Suspect her pulmonary emboli are due to running out of [place] approximately 4 days ago and multiple long car trips in the past 72 hours Will start patient on 1 mg/kg SQ Lovenox twice daily, and bridge to warfarin Will start Lovenox at the time of admission and start 10 mg p.o. warfarin this afternoon x 2 doses, can plan to start 5 mg warfarin daily on day 3 depending on INR level Incentive spirometry, as needed O2 to keep SpO2 at or above 92% Will obtain echocardiogram and bilateral venous Dopplers for further assessment As needed Tylenol and morphine for pain Heart healthy diet with 2 g sodium restriction A.m. CBC, BMP, mag, PT/INR (2) Chest pain: Plan: Patient has been experiencing left-sided chest/left arm pain with exertion over the past 4 days Also notes pleuritic chest pain with deep inspiration Cardiac workup in the ER including EKG and 2 high-sensitivity troponin levels have been within normal limits Suspect her chest and left upper extremity discomfort is due to her recently diagnosed pulmonary emboli Continue Lovenox/ warfarin Will continue to monitor on telemetry, will follow echocardiogram ordered on admission (3) HTN (hypertension): Plan: Currently stable Will plan to continue hydralazine, metoprolol, amlodipine, and home Bumex (4) Atrial fibrillation: Plan: EKG today shows rate controlled sinus rhythm with frequent PVCs Starting Lovenox/warfarin bridge today Continue home metoprolol (5) GERD (gastroesophageal reflux disease): Plan: Continue twice daily pantoprazole Plan The patient was discussed with Dr. Dumont at the time of the admission History of Present Illness Chief Complaint: Chest pain, left arm pain, SOB/ROMANO Primary Care Provider: Cierra Lincoln MD Brook is a 72-year-old female with a past medical history significant for previous PE/A-fib on Eliquis, hypertension, GERD, anxiety, and hyperlipidemia who presented to the [facility] ER on 08/10/2023 with a chief complaint of approximately 2 to 3 days of chest pain with associated left arm pain and shortness of breath. Vitals remained stable in the ER. Labs were significant for a D-dimer of 1320, high-sensitivity troponin within normal limits, and full respiratory bio fire negative. Chest x-ray was read as cardiomegaly with chronic interstitial coarsening. CTA of the chest with PE protocol was read as several segmental and sub-segmental pulmonary emboli with right lower lobe. The ED staff spoke with the on-call anticoagulation specialist who recommended starting Lovenox at 1 mg/kg twice daily and transitioning to Coumadin. Prior to admission the patient was ordered her initial dose of SQ Lovenox. Patient was sitting in bed in no acute distress at time of exam with her bedside, she had just returned from walking to and from the bathroom and did note increased dyspnea on exertion/shortness of breath. She states that approximately 4 days ago she started to develop increased lower extremity swelling, left-sided chest/left arm pain exacerbated with exertion, shortness of breath even at rest, and nonproductive cough starting yesterday. She ran out of her home Eliquis 4 days ago as well due to cost and unfortunately her r equiring recent pacemaker placement and being started on multiple new medications which are expensive as well. When asked, she denies reducing her recent dose of Eliquis to try make it last longer, she was taking it as prescribed until it ran out 4 days ago. When asked, they state that they recently had grandchildren born at [facility] approximately 4 days ago and have been driving 2 hours there and back on Tuesday and Tuesday of this past week. She denies having to hold her Eliquis in the recent past for any procedures. Denies recent alcohol or tobacco use. The patient denies recent fever, chills, new paresthesias/unilateral weakness, changes in vision, hearing, taste, smell, hemoptysis, abdominal pain, nausea, vomiting, diarrhea, dysuria, hematuria, melena, bloody BM's, recent trauma. We discussed CODE STATUS, she wishes to be full code. Please refer to Dr. Dumont attestation for any changes to the treatment plan. Allergies Allergy/AdvReac Type Severity Reaction Status Date / Time nitroglycerin Allergy Severe pruritis, Verified 08/10/23 12:38 headache, vomiting with patch (see comments) latex Allergy Mild rash Verified 08/10/23 12:38 potassium chloride AdvReac Mild "did not Verified 08/10/23 12:38 tolerate" IV potassium Home Medications Medication Instructions Recorded Confirmed Type ondansetron HCl 4 mg tablet 4 mg PO TID PRN Nausea 02/08/18 08/10/23 History pantoprazole 40 mg tablet,delayed 40 mg PO BID 02/08/18 08/10/23 History release simvastatin 20 mg tablet 20 mg PO HS 10/16/19 08/10/23 History amlodipine 10 mg tablet 10 mg PO QPM 12/04/20 08/10/23 History famotidine 20 mg tablet 20 mg PO QAM 08/14/22 08/10/23 History ropinirole 4 mg tablet 4 mg PO HS 08/14/22 08/10/23 History gabapentin 100 mg capsule 200 mg (2 x 100 mg) PO TID 30 days 07/27/23 08/10/23 Rx #180 caps esomeprazole magnesium 40 mg 40 mg PO QAM 08/10/23 08/10/23 History capsule,delayed release hydroxyzine HCl 10 mg tablet 10 mg PO BID PRN Anxiety 08/10/23 08/10/23 History valsartan 320 mg tablet 320 mg PO QAM 08/10/23 08/10/23 History warfarin 3 mg tablet 3 mg PO DAILY@1600 #30 tabs 08/14/23 Rx Past Med/Surg History Problem List Left knee pain (Acute) Obesity Altered mental status Chest pain Lethargic Weakness generalized (Chronic) Restless legs syndrome (Chronic) Panic disorder (Chronic) Major depressive disorder, single episode, unspecified (Chronic) Lumbago (Chronic) Hypokalemia (Chronic) Hyperlipidemia, unspecified (Chronic) Dyspnea (Chronic) Chronic pain of left knee (Chronic) Anxiety disorder, unspecified (Chronic) Ataxia (Chronic) Essential tremor Cerebrovascular disease Peripheral neuropathy Pulmonary embolism (Acute) Chest pain (Acute) Pneumonia (Acute) Abnormal CT scan, pelvis Endometrial thickening on ultrasound Hypercalcemia Hypertensive urgency Headache Hypertensive urgency (Acute) Hypercalcemia (Acute) Headache (Acute) Hypomagnesemia (Acute) Dehydration (Acute) Perioral tremor COVID-19 (Acute) History of colon polyps Encounter for pre-operative examination Colon cancer screening Urinary incontinence Change in bowel movement Osteoarthritis of right foot Hallux valgus (acquired), right foot Hammertoe of second toe of right foot Pain in right foot Hx pulmonary embolism 09/2019- on Eliquis Idiopathic scoliosis (Chronic) Status post Hank fundoplication Depression GERD (gastroesophageal reflux disease) has chronic cough HTN (hypertension) Medical History Anxiety and depression History of COVID-19 11/2020; cough, congestion, loss of taste, fatigue; c/o ongoing fatigue Atrial fibrillation single episode 09/2019 converted with IV amiodarone in setting of PNA/PE Follows with [facility] Cardiology Osteoporosis PAF (paroxysmal atrial fibrillation) Hyponatremia Tremor benign essential tremor (left hand)- controlled History of blood transfusion after each childbirth--last 1984 Restless leg Balance problem under surveillance by PCP, no definitive diagnosis History of endometriosis Panic attacks Premature ventricular contractions (PVCs) (VPCs) Hyperlipidemia Reactive airway disease LAMBERTO (iron deficiency anemia) Surgical History H/O foot surgery Right foot first tarsometatarsal joint arthrodesis with application of Lapiplasty plates History of anesthesia reaction difficulty waking History of esophagogastroduodenoscopy (EGD) Hx of colonoscopy last 05/2021 @ [facility] History of surgery ENDOMETRIOMA REMOVAL + PARTIAL UNILATERAL OOPHORECTOMY + APPENDECTOMY History of hernia repair open ventral hernia repair: 07/20/18: Grade view 1, MAC#3, ETT 7.0 at [facility] History of bladder suspension procedure History of tooth extraction History of surgical removal of ganglion cyst LEFT WRIST S/p bilateral blepharoplasty History of cardiac cath X2; 15+ years ago- no stents Family History Grandmother (Paternal) Family hx of colon cancer Grandmother (Maternal) Family hx of colon cancer Other No family history of adverse response to anesthesia Social History Smoking Status: Never smoker Second Hand Exposure: No; Do You Dip or Chew Tobacco: No; Hx Alcohol Use: Yes Alcohol type: wine Preferred Language: [place] Communication Ability: Effective 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 Beliefs That Will Affect Care: None Current Living Situation: Spouse Feels Safe at Home: Yes Assistive Devices: None Physical Exam Physical Exam: Physical Exam: General: In no acute distress, stated age, well-nourished, non-toxic appearing HEENT: Normocephalic, atraumatic, no scleral icterus, pupils around round, symmetrical, and reactive to light, moist mucus membranes, no JVD, trachea midline, no thyromegaly Chest/Pulm: No respiratory distress, symmetrical chest expansion, clear breath sounds throughout Cardiac: RRR, 3/6 systolic murmur noted Abdomen: Negative for ascites and bruising, normoactive bowel sounds, soft, non-tender to palpation throughout Musculoskeletal: Symmetrical and without signs of acute trauma, upper and lower extremities with full ROM, no atrophy, spasticity, or flaccidity Extremities: Radial, dorsalis pedis, and posterior tibial pulses are intact and symmetrical, symmetrical 1+ edema noted in the BL LE's Skin: Warm, dry, no rashes , lesions, or scars noted Neuro: Alert and oriented to person, place, month, year, and president, no focal defects, no tremors noted Psych: No acute distress, calm and cooperative during the exam Results & Data Results & Data Vital Signs (Past 12 Hours) Vital Signs Temp Pulse Resp BP Pulse Ox O2 Del Method 08/10/23 11:00 75 16 105/69 95 08/10/23 10:06 73 16 120/69 93 08/10/23 09:33 75 19 106/68 94 08/10/23 09:05 83 20 99 Room Air 08/10/23 08:55 83 08/10/23 08:54 Room Air 08/10/23 08:41 36.9 C 84 20 122/76 99 Room Air Laboratory Results Abnormal lab results 08/10/23 Range/Units 09:02 MCHC 31.6 L (32.0-36.0) g/dL RDW Coeff of Ladi 15.3 H (11.5-14.5) % Neut # (Auto) 6.93 H (1.40-6.50) K/uL [place] # (Auto) 0.69 H (0.11-0.59) K/uL D-Dimer 1320 H* (0-500) ug/L FEU BUN/Creatinine Ratio 25.0 H (10-20) Glucose 134 H (70-99(Fasting)) mg/dl Alkaline Phosphatase 108 H (34-104) U/L Diagnostic Findings Chest X-Ray 08/10/23 09:01 XR chest 1V portable HISTORY: 72 years-old Female Chest pain, nonspecific acute chest pain COMPARISON: 08/14/2022 TECHNIQUE: AP view of the chest FINDINGS: Cardiomediastinal and hilar silhouettes are unchanged. Mild chronic interstitial coarsening. No pneumothorax, pleural effusion or lobar airspace consolidation. Bones appear grossly intact. Right-sided rotator cuff calcific tendinosis. IMPRESSION: Cardiomegaly with chronic interstitial coarsening. ACT 112: Negative or not required by law. The above report was generated using voice recognition software. It may contain grammatical, syntax or spelling errors. Electronically signed by: John Valdez M.D. 08/10/2023 9:49 AM Chest CTA 08/10/23 10:16 CT ANGIOGRAPHY OF THE CHEST, PULMONARY EMBOLUS PROTOCOL CLINICAL HISTORY: PE, +dimer, off meds COMPARISON STUDY: Chest CT February 26, 2020. Chest radiograph performed earlier today. TECHNIQUE: Following IV administration of 118 mL of Optiray, helical axial images of the chest were obtained utilizing the pulmonary embolus protocol. Maximal intensity projections and sagittal and coronal reformats were viewed on an independent 3D workstation. IV contrast was administered without complication. Automated exposure control was utilized for the study. A dose lowering technique was utilized adhering to the principles of ALARA. CT DOSE: 726.85 mGy.cm FINDINGS: There are several segmental and subsegmental pulmonary emboli within the right lower lobe. No central pulmonary emboli are present. The heart is moderately enlarged. No thoracic aortic dissection. There is no thoracic lymphadenopathy. Central airways are patent. There is no pneumothorax or pleural effusion. Lungs are suboptimally assessed due to respiratory motion. Groundglass favor atelectasis. There is no evidence for pulmonary infarct. Visualized portions of the upper abdomen are unremarkable. IMPRESSION: 1. Several segmental and subsegmental pulmonary emboli within the right lower lobe. 2. Cardiomegaly. ACT 112: Negative or not required by law. Electronically signed by: Yuan Petty M.D. 08/10/2023 10:59 AM ECG Additional Comments: Sinus rhythm with frequent Premature ventricular complexes Nonspecific T wave abnormality Abnormal ECG When compared with ECG of 14-AUG-2022 15:39, Premature ventricular complexes are now Present Nonspecific T wave abnormality no longer evident in Inferior leads Nonspecific T wave abnormality no longer evident in Anterior leads Confirmed by Julio Harper ([id number]) on 08/10/2023 9:58:24 AM Code Status & VTE Plan Code Status Full code VTE Prophylaxis Plan VTE Prophylaxis will be ordered: Yes Supervising Physician Co-Signing Physician Notes I personally saw and examined the patient. I verified all conway points and agree with Con Wright PA-C with the following exceptions and/or additions: 72 year old female with history of PE presents to the ER with shortness of breath on exertion and bilateral lower extremity swelling. She is supposed to be taking Eliquis but ran out 4 days ago O/E HS RRR, systolic murmur, Chest CTAB, Abdo SNT, 1+ b/l equal LE edema A/P Pulmonary embolism - Lovenox 1mg/kg BID with plan to bridge to wararin 10mg daily, US venous dopplers. PG Care Time/CCT Total # of Minutes Spent Total Time Spent with Patient: Total time spent is greater than 50% in coordination of care (as documented) at patient's floor/unit and/or counseling patient: Coding [place] [id number] INT INP/OBS CARE 2/55MIN Patient Type Established Medical Decision Making Moderate Complexity Diagnoses Pulmonary embolism I26.99 Acute cor pulmonale presence: unspecified Chronicity: acute Pulmonary embolism type: unspecified Chest pain R07.9 Chest pain type: unspecified HTN (hypertension) I10 Atrial fibrillation I48.91 GERD (gastroesophageal reflux disease) K21.9 (1) Pulmonary embolism Acute cor pulmonale presence: unspecified Chronicity: acute Pulmonary embolism type: unspecified Qualified Code(s): I26.99 - Other pulmonary embolism without acute cor pulmonale (2) Chest pain Chest pain type: unspecified Qualified Code(s): R07.9 - Chest pain, unspecified
[2023-08-10] MEDS ORDERED: ACETAMINOPHEN 325 MG TAB PO PRN (12:07)
[2023-08-10] MEDS ORDERED: MoRPHine SULFATE 2 MG/ML CARP IV PRN (12:07)
[2023-08-10] MEDS ORDERED: ENOXAPARIN 1 MG/KG SQ SCH ×2 (12:15)
[2023-08-10] MEDS ORDERED: hydrOXYzine HCl 10 MG TAB PO PRN (13:54)
--- NOTE | 2023-08-10 15:29 | Ultrasound Report ---
BILATERAL LOWER EXTREMITY VENOUS DOPPLER CLINICAL HISTORY: New PE's, please monitor for DVT COMPARISON STUDY: Bilateral lower extremity venous Doppler ultrasound August 14, 2022. TECHNIQUE: Sonography of the deep venous system of the bilateral lower extremities was performed. Co mpression and augmentation were evaluated. FINDINGS: The bilateral common femoral, superficial femoral and popliteal veins were compressible. A ugmentation was normal. Flow was shown within the deep calf vessels. A tiny right popliteal cyst niurka ures 3.3 x 2.8 x 0.7 cm. IMPRESSION: No evidence of deep venous thrombus within the bilateral lower extremities. ACT 112: Negative or not required by law. Electronically signed by: Yuan Petty M.D. 08/10/2023 3:26 PM
[2023-08-10] MEDS: WARFARIN SOD 10 MG TAB PO SCH (17:45)
[2023-08-10] MEDS: ENOXAPARIN 100 MG/1ML SYR SQ SCH (17:45)
[2023-08-10] MEDS: GABAPENTIN 100 MG CAP PO SCH (17:46)
[2023-08-10] MEDS: ONDANSETRON INJ 2 MG/ML 2 ML VIAL IV PRN (19:33)
[2023-08-10] MEDS: amLODIPine BESYLATE 5 MG TAB PO SCH (20:00)
[2023-08-10] MEDS: PANTOprazole 40 MG TAB PO SCH (20:02)
[2023-08-10] MEDS: rOPINIRole HCL 2 MG TABLET PO SCH (20:02)
[2023-08-10] MEDS: SIMVASTATIN 20 MG TAB PO SCH (20:03)
--- OUTSIDE RECORDS SUMMARY | 2023-08-11 04:20 | External Medical Summary | Continuity of Care Document ---
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 Role Phone Cierra Lincoln Primary Care Physician [phone] Encounter [id number] Date(s): 08/05/23 - 08/05/23 [facility] [address], [address] [place] [address] [phone] Discharge Disposition: Home or Self Care Attending Physician: MD Lincoln Amy L Allergies, Adverse Reactions, Alerts Substance Criticality Severity Reaction Reaction Severity Status potassium chloride 1 Shortne ss of breath pain in arm IV Active benzodiazepines addiction Acti ve Nitroglyn E-R flushing headache Vomiting Active Latex contact rash Active Allergy Not found in Search 2 Unable to assess criticality Severe severe sensitivity to any opiate Active 1Only if IV infused per patient 2severe sensitivity to any opiate Immunizations Given and Recorded Vaccine Date Status Refusal Reason SARS-CoV-2 (COVID-19) mRNA-vacc - [id number] 12/15/22 Recorded zoster vaccine, inactivated 11/13/22 Recorded SARS-CoV-2 mRNA (Pfizer 12+) bivalent 12/11/21 Rec orded SARS-CoV-2 (COVID-19) mRNA BNT-162b2 vax 1 01/10/21 Recorded SARS-CoV-2 (COVID-19) mRNA BNT-162b2 vax 2 05/17/20 Recorded SARS-CoV-2 (COVID-19) mRNA BNT-162b2 vax 3 04/26/20 Recorded influenza virus vaccine, inactivated 12/11/19 Give n influenza virus vaccine, inactivated 01/12/19 Give n influenza virus vaccine, inactivated 11/29/16 Give n influenza virus vaccine, inactivated 11/18/15 Give n 1Result Comment: 2022-01-20: Historical information-source unspecified 2Result Comment: 2020-12-08: Historical information-source unspecified 3Result Comment: 2020-12-08: Historical information-source unspecified Medications BD 1 mL Allergy Syringe 28G x 1/2" Start: 06/25/19 2:27:00 PM EDT, See Instructions, Disp# 1 kit, Refills: 5, to be used to adminster Vitamin B12 injection, Pharmacy: [id number] Start Date: 06/25/19 Status: Ordered BD TB SYRINGE 27GX1/2" BD TB SYRINGE 27GX1/2", See Instructions, Disp# 1 syringe, Refills: 5, TO BE USED TO ADMINSTER VITAMIN B12 INJECTION, Pharmacy [id number] Start Date: 07/11/20 Status: Ordered BD TB SYRINGE 27GX1/2" Start: 10/15/21 8:14:00 PM EDT, BD TB SYRINGE 27GX1/2", See Instructions, Disp# 1 unknown unit, Refills: 5, TO BE USED TO ADMINSTER VITAMIN B12 INJECTION, Pharmacy [id number] Start Date: 10/15/21 Status: Ordered BD TB SYRINGE 27GX1/2" Start: 06/25/19 2:27:00 PM EDT, See Instructions, Disp# 1, Refills: 5, TO BE USED TO ADMINSTER VITAMIN B12 INJECTION, Pharmacy: [facility] #[id number], TO BE USED TO ADMINSTER VITAMIN B12 INJECTION Start Date: 06/25/19 Status: Ordered cyanocobalamin 1000 mcg/mL injectable solution Start: 10/15/21 8:14:00 PM EDT, See Instructions, Disp# 3 mL, Refills: 5, INJECT 1,000MCG EVERY MONTH, Pharmacy: [id number] Start Date: 10/15/21 Status: Ordered Eliquis 5 mg oral tablet Start: 04/25/23 11:53:00 AM EST, 1 tab, PO, bid, Disp# 60 tab, Refills: 11, Pharmacy: [id number] Start Date: 04/25/23 Stop Date: 04/19/24 Status: Ordered esomeprazole 40 mg oral delayed release capsule Start: 04/21/23 7:14:00 AM EST, 1 cap, PO, Daily, Disp# 90 cap, Refills: 1, Pharmacy: [facility] Start Date: 04/21/23 Status: Ordered famotidine 20 mg oral tablet Start: 05/27/22 11:29:00 AM EDT, 2 tab, PO, bid, Disp# 360 tab, Refills: 1, Pharmacy: [facility] Start Date: 05/27/22 Stop Date: 11/23/22 Status: Ordered hydrALAZINE 10 mg oral tablet Start: 08/27/22 8:19:00 AM EDT, 1 tab, PO, bid, Disp# 180 tab, Refills: 3, for BLOOD PRESSURE, Pharmacy: [facility] Start Date: 08/27/22 Status: Ordered hydrOXYzine hydrochloride 10 mg oral tablet Start: 05/30/23 7:53:00 AM EDT, 1 tab, PO, bid, Disp# 180 tab, Refills: 1, PRN: NEEDED FOR ANXIETY, Pharmacy: [facility] [address] Start Date: 05/30/23 Status: Ordered levothyroxine 50 mcg (0.05 mg) oral tablet Start: 06/30/21 4:51:00 PM EDT, See Instructions, Disp# 34 tab, Refills: 3, 1 tab PO Daily for 6 days, then 2 po daily on one day of week, Note to Pharmacy: Please cancel rx for 25 mcg once daily, Pharmacy: [facility] Start Date: 06/30/21 Status: Ordered Lexapro 10 mg oral tablet Start: 06/09/21 5:50:00 PM EDT, 1 tab, PO, Daily, Disp# 30 tab, Refills: 6, Pharmacy: [facility] [address] Start Date: 06/09/21 Status: Ordered Lidocaine Viscous 2% mucous membrane solution Start: 05/27/22 11:26:00 AM EDT, 5 mL, topical, ac, Disp# 100 mL, Refills: 1, PRN: as needed for mouth sore pain, Pharmacy: [facility] [address] Start Date: 05/27/22 Stop Date: 07/08/22 Status: Ordered metoprolol succinate 25 mg oral tablet, extended release Start: 05/07/21 10:02:00 AM EST, 1 tab, PO, Daily, Disp# 30 tab, Refills: 5, Pharmacy: [facility] [address] Start Date: 05/07/21 Status: Ordered ondansetron 4 mg oral tablet See Instructions, Disp# 270 tab, Refills: 0, TAKE 1 TABLET BY MOUTH EVERY 8 HOURS, Pharmacy: [facility] [id number] Start Date: 07/11/20 Status: Ordered pantoprazole 40 mg oral delayed release tablet Start: 04/21/23 7:14:00 AM EST, See Instructions, Disp# 90 tab, Refills: 1, TAKE 1 TABLET BY MOUTH EVERY DAY, Pharmacy: [facility] [address] Start Date: 04/21/23 Status: Ordered rOPINIRole 4 mg oral tablet Start: 07/06/23 8:00:00 AM EDT, 1 tab, PO, qhs, Disp# 30 tab, Refills: 5, Pharmacy: [facility] [address] Start Date: 07/06/23 Status: Ordered simvastatin 40 mg oral tablet Start: 08/30/22 5:20:00 PM EDT, 1 tab, PO, qPM, Disp# 90 tab, Refills: 3, Note to Pharmacy: D/C 20 mgdose, Pharmacy: [facility] [address] Start Date: 08/30/22 Stop Date: 08/25/23 Status: Ordered sucralfate 1 g oral tablet Start: 05/27/22 11:24:00 AM EDT, 1 tab, PO, ac and hs, Disp# 120 tab, Refills: 1, on an empty stomach, Pharmacy: [facility] [address] Start Date: 05/27/22 Stop Date: 07/26/22 Status: Ordered valsartan 320 mg oral tablet See Instructions, Disp# 90 tab, Refills: 3, TAKE 1 TABLET BY MOUTH EVERY DAY, Pharmacy: [facility] [id number] Start Date: 05/12/21 Status: Ordered Vitamin D3 50,000 intl units (1250 mcg) oral capsule Start: 06/15/20 9:37:00 AM EDT, 1 cap, PO, q7days, Disp# 8 cap, Pharmacy: [facility] #[id number] Start Date: 06/15/20 Stop Date: 08/10/20 Status: Ordered Voltaren 1% topical gel Start: 05/08/18 8:59:00 AM EDT, 1 appl, topical, qid, Disp# 100 g, Refills: 2, not to exceed 16 grams/day/single joint of lower extremities, PRN: Pain, Pharmacy: [facility] #[id number] Start Date: 05/08/18 Stop Date: 08/06/18 Status: Ordered Problem List Condition Confirmation Course Effective Dates Status H ealth Status Informant Adjustment disorder with depressed mood Confirmed Active Ankle edema Confirmed Active Anxiety Confirmed Active Aortic heart murmur Confirmed Active Generalized weakness Confirmed Active Benzodiazepine (tranquilizer) overdose Confirmed Active Pes anserine bursitis Confirmed Active 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 Active Chronic cough Confirmed Active Urinary and fecal incontinence Confirmed Active Dysphagia Confirmed Active Edema Confirmed Active Endometrial thickening on ultrasound Confirmed Active Benign essential tremor Confirmed Active Facial tic Confirmed Active Fatigue Confirmed Active Esophagitis, reflux Confirmed Active Gastroparesis Confirmed Active Hiatal hernia with GERD and esophagitis Confirmed Active Left hip pain Confirmed Active HTN (hypertension) Confirmed Active HTN (hypertension) Confirmed Active Hypothyroidism Confirmed Active Balance problem Confirmed Active Intestinal metaplasia of gastric cardia Confirmed Active Mild persistent reactive airway disease without complication Confirmed Active Anxious depression Confirmed Active Panic disorder Confirmed Active Annual physical exam Confirmed Active Encounter for PPD test Confirmed Active Meniscus tear Confirmed Active Chest tightness Confirmed Active Weight disorder Confirmed Active Procedures Procedure Date Related Diagnosis Body Site Status GASTRIC EMPTYING IMAG STUDY 1, 2 10/13/22 Completed Upper GI (gastrointestinal) endoscopy 3 07/07/22 Completed Colonoscopy 4 06/24/21 Completed Colonoscopy 5 06/24/21 Completed Colonoscopy 6, 7 01/08/21 Complete d Mammogram 8 08/19/20 Completed Chest x-ray 9 05/27/[address] angio of head/neck 10 05/27/20 Completed MRI 11 05/27/20 Completed Videoswallow 12 04/11/20 Completed Upper GI endoscopy 13 03/28/20 Com pleted Diagnostic hysteroscopy 01/28/20 C ompleted CXR - Chest X-ray 14 11/24/19 Comp leted Hernia repair 15 07/20/18 Complete d Ultrasound 16 05/11/18 Completed CXR - Chest X-ray 17 08/23/17 Comp leted Barium swallow 18 08/15/17 Complet ed MRA of neck 19 08/14/17 Completed MRI of brain and brain stem with contrast 20 08/14/[address] angiogram of head, neck a nd thorax 21 08/13/[address] of cervical spine 22 08/13/[address] of head 23 08/13/[address] of head 24 08/13/17 Completed CXR - Chest X-ray 25 08/13/17 Comp leted Pathology report 26 06/07/17 Compl eted Barium swallow 27 06/06/17 Complet ed Stress echocardiography usin g dobutamine 28 06/06/17 Completed Cardiac echo 29 06/04/17 Completed Chest x-ray 30 06/03/17 Completed Stress echocardiography usin g dobutamine 06/03/17 Completed Upper GI endoscopy 31, 32 06/03/17 Completed Facial bones X-ray 33 08/30/16 Com pleted Hand X-ray 34 08/28/16 Completed Colonoscopy 35, 36 01/08/16 Comple oz Spirometry 37 11/25/15 Completed Paraesophageal hernia 07/11/15 Com pleted Perez pH capsule 38 05/16/15 Compl eted Upper GI endoscopy 39 05/16/15 Com pleted Ambulatory pH monitoring with Perez 40 03/07/15 Completed Upper GI endoscopy 41 03/07/15 Com pleted Colonoscopy 42 02/28/09 Completed Cystectomy hand 2005 Completed Eyelid lift 43 2005 Completed Cardiac catheterization 2003 C ompleted Sling procedure of bladder neck 1991 Completed EA - Endometrial ablation 1989 Completed Excision of ganglion cyst 44 Completed Oral surgery Completed 1Tracer remaining was 66% at 1 hour, 35 % at 2 hours and 10% at 4 hours with normals being 30-90%, 30-60% and 10%. 2Normal gastric emptying study without evidence of gastroparesis or rapid gastric emptying 3[facility] Impression: 1. LA Grade D reflux esophagitis with no bleeding 2. Excessive gastric fluid 3. Normal examined duodenum 4. No specimens collected 4int. hemorrhoids, poor prep; repeat in 3 yrs due to poor prep 5Internal hemorrhoids. Prep poor in placed obscuring mucosa, particularly in the right colon. The examination was otherwise normal on direct and retroflexion views. No specimens collected. 6Three 3 to 5 mm polyps in the transverse colon and in the ascending colon, removed with a cold snare. Resected and retrieved. Non bleeding hemorrhoids. 7path - tubular adenoma X 2; next scope in 3 yrs 8NO mammographic evidence of malignancy. 1 year screening is recommended. 9[facility] Impression: 1. No acute cardiopulmonary findings 10[facility] Impression: 1. Therre is no hemorrhage, mass effect, or evidence of acute territorial eschemia by CT criteria 2. Unremarkable CT angiogram of the brain 3. Unremarkable CT angiogram of the neck 11BRAIN MRI WITHOUT CONTRAST IMPRESSION: No significant change compared to the prior study. No acute intracranial abnormality. 12[facility] Video swallow by speech path normal radiology reading and normal speech path evaluation of swallowing. 13LA Grade B reflux esophagitis. Z-line regular, 35 cm from donald incisors. A medium amount of food (residue) in the stomach. Normal examined duodenum. No specimens collected. Full liquid diet for 1 week 14No acute process. 15ventral 16US abdomen limited Impression: A fat-containing nonreducible right upper quandrant abdominal wall hernia. This correspounds to the patient's palpable abnormality. 17Cardiomegaly without acute process. 18[facility] Impression: 1. Mild esophageal dysmotility 2. Postoperative changes from prior Hank fundoplication 3. No appreciable gastroesophageal reflux 19No significant stenosis within the bilateral common carotid, internal carotid or vertebral arteries. 201. No acute intracranial findings. 2. No intracranial mass or pathologic enhancement. 3. Moderate presumed small vessel disease. 21No evidence of hemodynamically significant carotid or vertebral artery stenosis. No evidence of dissection. 22No evidence of acute fracute or traumatic subluxation. 23No significant abnormalities. 24No acute intracranial findings. 25Stable mild chronic interstitial thickening. No acute findings. 26[facility] Stomach, antrum/body: 1. Mild chronic gastritis with intestinal metaplasia 2. Negative for dysplasia and carcinoma 3. H. Pylori immunoperoxidase stain negative 271. Dysmotility suggests presbyesophagus. 2. Small hiatal hernia versus postsurgical changes of the gastroesophageal junction from prior Hank. 3. The patient was unable to ingest the barium pill, which was expectorated. 28nml without inducible ischemia @ 82% MPHR 29LV size & function nml; EF 60-65%; mod. concentric LVH; Grade I diastolic dysfunction; mild MR & TR; LA mildly dilated 30[facility] Impression: 1. No acute cardiopulmonary findings 31Pathology results: Stomach, antrum/body, biopsies: 1) Mild chronic gastritis with intestinal metaplasia. 2) Negative for dysplasia and carcinoma. 3) H. pylori immunoperoxidase stain negative. 32Impression: LA Grade A reflux esophagitis. Low-grade of narrowing, non-obstructing and mild Schatzki ring. Dilated. a medium amount of food (residue) in the stomach. Erythematous mucosa in the antrum. Biopsied. Normal examined duodenum. 33IMPRESSION: NO FACIAL FRACTURE IDENTIFIED BY RADIOGRAPHY. 34[facility] Impression: 1. No acute fracture or radiopaque foreign body within the left hand 35[facility] Impression: 1. One 5 mm polyp in the descending colon. Resected and retrieved 2. Non bleeding internal hemorrhoids 36tubular adenoma 37[facility] Impression: 1. The spirometry reveals mild obstruction with no change in the airflow with the use of albuterol 38Significant acid reflux with positive correlation with chest pain symptom. 39Large hiatus hernia The examination was otherwise normal Normal mucosa was found in the entire esophagus The Perez ph capsule was deployed. No specimens collected 40Premature displacement of the Perez clip after only a few hrs after the pt's first meal makes the results uninterpretable and invalid. 41Large hiatus hernia Normal mucosa was found in the entire esophagus The examination was otherwise normal The Perez pH capsule was deployed. No specimens collected. 42polyps 43blepharoplasty 44left wrist Social History Social History Type Response Smoking Status Never smoked cigaret padmini Sex Female Patient Care team information Care Team Personnel Name: GATITO Breaux Tara Position: Nurse Pract - Family Med Member Role: Lifetime Relationship Address: Address: [address] [place] [id number] [place] Name: MD Salazar, Cierra Burrows Position: Physician - Family Med Member Role: Primary Care Provider Address: Address: [address] [facility] [address] [place] [address] [place] Name: GATITO Dean Shari A Position: Nurse Pract - Family Med Member Role: Lifetime Relationship Address: Address: [address] [facility] [address] [place] [address] [place] Care Team Related Persons Name: OKSANA ROSALES Name: KOLBY ROSALES Address: home [address] [place] [address], [phone]
--- OUTSIDE RECORDS SUMMARY | 2023-08-11 04:20 | External Medical Summary | Continuity of Care Document ---
Author Name Unknown Organization [place] [id number] [facility] Address [address] [place] [phone] Care Team Providers Care Ironer Hand Name Role Phone Cierra Lincoln Primary Care Physician [phone] [id number] Date(s): 07/26/23 - 07/26/23 [facility] [address], [address] [place] [address] [phone] Encounter Diagnosis Chest tightness(Discharge Diagnosis) - 07/26/23 HTN (hypertension)(Discharge Diagnosis) - 07/25/23 Esophagitis, reflux(Discharge Diagnosis) - 07/25/23 Balance problem(Discharge Diagnosis) - 07/26/23 Urinary and fecal incontinence(Discharge Diagnosis) - 07/26/23 Anxious depression(Discharge Diagnosis) - 07/25/23 Acute pulmonary embolus(Discharge Diagnosis) - 07/25/23 Ankle edema(Discharge Diagnosis) - 07/26/23 Encounter for PPD test(Discharge Diagnosis) - 07/26/23 Aortic heart murmur(Discharge Diagnosis) - 07/26/23 Discharge Disposition: Home or Self Care Attending [...] per patient 2severe sensitivity to any opiate Assessment and Plan Extracted from: Title:Office Visit Note Author:MD Lincoln Amy L D ate:07/26/23 1.Chest tightness STATUS: new complaint,stable. DATA: hx, exam&EKGreviewed. GOAL: evaluate& txcauseofsx. PLAN: her sx arenot entirelytypicalforangina, however,thereissome slightlateral T-waveflattening oncurrentEKG, whichis more noticeable oncurrenttracing.WillorderstressECHO. I didadviseher that if sxwouldworsen or accelerate inany way, sheneeds togo to ER,immediately. 2.Aortic heart murmur STATUS : newfinding, stable. DATA : hx & exam reviewed. GOAL : evaluatefor valvulards. PLAN : obtainECHO,consider cardiology eval,pending these results. 3.Balance problem STATUS: newcomplaint, worse. DATA: hx, exam&gaitreviewed. GOAL: eval & txcauseof sx/gait dysfunction. PLAN: unclearcause, iewhetherduetodeconditioningvs multiple otherpossiblecauses.Her gaitwas observedupon leaving the exam& appeared normal,butslow.Cont current monitoring. Once cardiac status has been evaluated, may need to consider PT eval. 4.Esophagitis, reflux STATUS: Chronic, stable. DATA: hx & examreviewed. GOAL: relieve sx of acid reflux. PLAN: unclearwhatother tx couldbe offered,sinceshe vibha Famotidine, Carafate & 2 PPI's. Will needtofollowupwithGI, onceotherissuesare stabilized, as above.Stay vigilant with diet & non-pharmacological measures. 5.Urinary and fecal incontinence STATUS: Chronic stable. DATA: hxreviewed. GOAL: restorecontinence. PLAN: she may needrepeaturogyneeval,onceotherissueshavebeenevaluated. 6.HTN (hypertension) Status : chronic, controlled. Data : BP readings reviewed. Goal : maintain normal BP. Plan : continue current BP meds. Get electrolytes & renal function. 7.Acute pulmonary embolus STATUS: Chronic stable. DATA: hxreviewed. GOAL: preventrecurrence PL AN: unclear whyshe wasadvisedtobe onindefiniteanti-coagulation.I willreviewchartnotes&/or hospitalrecordstoverify.If this iscorrect,candiscussconvertingtoCoumadin. 8.Ankle edema STATUS: Chronic stable. DATA: hx & exam reviewed. GOAL: resolve edema. PLAN: unclearetiology.Obtainpro-BNP, CBC& TSH.Awaitresults of ECHO.If alltesting isconsistent withvenous insufficiency,will need todiscusssalt restriction & elevation. 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 10.Anxious depression Status : chronic, improved. Data : hx reviewed. Goal : maintain remission. Plan : continue same meds. Return in 2-3 months, after cardiac eval. Time:Total time spent with this patient on day of evaluation including chart review, ordering, education and coordination of care elements: 48_ minutes Immunizations Given and Recorded Vaccine Date Status Refusal Reason SARS-CoV-2 (COVID-19) mRNA-vacc - [id number] 12/15/22 Recorded zoster vaccine, inactivated 11/13/22 Recorded [...] used to adminster Vitamin B12 injection, Pharmacy: [id number] Start Date: 06/25/19 Status: Ordered BD TB SYRINGE 27GX1/2" BD TB SYRINGE 27GX1/2", See Instructions, Disp# 1 syringe, Refills: 5, TO BE USED TO ADMINSTER VITAMIN B12 INJECTION, Pharmacy [id number] Start Date: 07/11/20 Status: Ordered BD TB SYRINGE 27GX1/2" Start: 10/15/21 8:14:00 PM EDT, BD TB SYRINGE 27GX1/2", See Instructions, Disp# 1 unknown unit, Refills: 5, TO BE USED TO ADMINSTER VITAMIN B12 INJECTION, Pharmacy [id number] Start Date: 10/15/21 Status: Ordered BD TB SYRINGE 27GX1/2" Start: 06/25/19 2:27:00 PM EDT, See Instructions, Disp# 1, Refills: 5, TO BE USED TO ADMINSTER VITAMIN B12 INJECTION, Pharmacy: [facility]/pharmacy #[id number], TO BE USED TO ADMINSTER VITAMIN B12 INJECTION Start Date: 06/25/19 Status: Ordered cyanocobalamin 1000 mcg/mL injectable solution Start: 10/15/21 8:14:00 PM EDT, See Instructions, Disp# 3 mL, Refills: 5, INJECT 1,000MCG EVERY MONTH, Pharmacy: [facility] [place] [id number] Start Date: 10/15/21 Status: Ordered Eliquis 5 mg oral tablet Start: 04/25/23 11:53:00 AM EST, 1 tab, PO, bid, Disp# 60 tab, Refills: 11, Pharmacy: [id number] Start Date: 04/25/23 Stop Date: 04/19/24 Status: Ordered esomeprazole 40 mg oral delayed release capsule Start: 04/21/23 7:14:00 AM EST, 1 cap, PO, Daily, Disp# 90 cap, Refills: 1, Pharmacy: [facility] Start Date: 04/21/23 Status: Ordered famotidine 20 mg oral tablet Start: 05/27/22 11:29:00 AM EDT, 2 tab, PO, bid, Disp# 360 tab, Refills: 1, Pharmacy: [facility] Start Date: 05/27/22 Stop Date: 11/23/22 Status: Ordered hydrALAZINE 10 mg oral tablet Start: 08/27/22 8:19:00 AM EDT, 1 tab, PO, bid, Disp# 180 tab, Refills: 3, for BLOOD PRESSURE, Pharmacy: [facility] Start Date: 08/27/22 Status: Ordered hydrOXYzine hydrochloride 10 mg oral tablet Start: 05/30/23 7:53:00 AM EDT, 1 tab, PO, bid, Disp# 180 tab, Refills: 1, PRN: NEEDED FOR ANXIETY, Pharmacy: [facility] Start Date: 05/30/23 Status: Ordered levothyroxine 50 mcg (0.05 mg) oral tablet Start: 06/30/21 4:51:00 PM EDT, See Instructions, Disp# 34 tab, Refills: 3, 1 tab PO Daily for 6 days, then 2 po daily on one day of week, Note to Pharmacy: Please cancel rx for 25 mcg once daily, Pharmacy: [facility] 2[facility] Start Date: 06/30/21 Status: Ordered Lexapro 10 mg oral tablet Start: 06/09/21 5:50:00 PM EDT, 1 tab, PO, Daily, Disp# 30 tab, Refills: 6, Pharmacy: [facility] [address] Start Date: 06/09/21 Status: Ordered Lidocaine Viscous 2% mucous membrane solution Start: 05/27/22 11:26:00 AM EDT, 5 mL, topical, ac, Disp# 100 mL, Refills: 1, PRN: as needed for mouth sore pain, Pharmacy: [facility] [address] Start Date: 05/27/22 Stop Date: 07/08/22 Status: Ordered metoprolol succinate 25 mg oral tablet, extended release Start: 05/07/21 10:02:00 AM EST, 1 tab, PO, Daily, Disp# 30 tab, Refills: 5, Pharmacy: [facility] [address] Start Date: 05/07/21 Status: Ordered ondansetron 4 mg oral tablet See Instructions, Disp# 270 tab, Refills: 0, TAKE 1 TABLET BY MOUTH EVERY 8 HOURS, Pharmacy: [facility] [id number] Start Date: 07/11/20 Status: Ordered pantoprazole 40 mg oral delayed release tablet Start: 04/21/23 7:14:00 AM EST, See Instructions, Disp# 90 tab, Refills: 1, TAKE 1 TABLET BY MOUTH EVERY DAY, Pharmacy: [facility] [address] Start Date: 04/21/23 Status: Ordered rOPINIRole 4 mg oral tablet Start: 07/06/23 8:00:00 AM EDT, 1 tab, PO, qhs, Disp# 30 tab, Refills: 5, Pharmacy: [facility] Start Date: 07/06/23 Status: Ordered simvastatin 40 mg oral tablet Start: 08/30/22 5:20:00 PM EDT, 1 tab, PO, qPM, Disp# 90 tab, Refills: 3, Note to Pharmacy: D/C 20 mgdose, Pharmacy: [facility] Start Date: 08/30/22 Stop Date: 08/25/23 Status: Ordered sucralfate 1 g oral tablet Start: 05/27/22 11:24:00 AM EDT, 1 tab, PO, ac and hs, Disp# 120 tab, Refills: 1, on an empty stomach, Pharmacy: [facility] Start Date: 05/27/22 Stop Date: 07/26/22 Status: Ordered valsartan 320 mg oral tablet See Instructions, Disp# 90 tab, Refills: 3, TAKE 1 TABLET BY MOUTH EVERY DAY, Pharmacy: [id number] Start Date: 05/12/21 Status: Ordered Vitamin D3 50,000 intl units (1250 mcg) oral capsule Start: 06/15/20 9:37:00 AM EDT, 1 cap, PO, q7days, Disp# 8 cap, Pharmacy: [facility] #[id number] Start Date: 06/15/20 Stop Date: 08/10/20 Status: Ordered Voltaren 1% topical gel Start: 05/08/18 8:59:00 AM EDT, 1 appl, topical, qid, Disp# 100 g, Refills: 2, not to exceed 16 grams/day/single joint of lower extremities, PRN: Pain, Pharmacy: [id number] Start Date: 05/08/18 Stop Date: 08/06/18 Status: Ordered Mental Status 07/26/23 Barriers to Learning one year None evide nt Mandatory Health Literacy Documentation Yes Health Literacy Communication Barriers N ever Primary Language Belarusian Problem List Condition Confirmation Course Effective Dates [...] tightness Confirmed Active Weight disorder Confirmed Active Diagnosis Diagnosis Type Effective Dates Health Status Clinical Service Informant HTN (hypertension) Discharge Diagnosis 07/25/23 Non-Specified Anxious depression Discharge Diagnosis 07/25/23 Non-Specified Esophagitis, reflux Discharge Diagnosis 07/25/23 Non-Specified Acute pulmonary embolus Discharge Diagnosis 07/25/23 Non-Specified Chest tightness Discharge Diagnosis 07/26/23 Non-Specified Balance problem Discharge Diagnosis 07/26/23 Non-Specified Aortic heart murmur Discharge Diagnosis 07/26/23 Non-Specified Ankle edema Discharge Diagnosis 07/26/23 Non-Specified Encounter for PPD test Discharge Diagnosis 07/26/23 Non-Specified Urinary and fecal incontinence Discharge Diagnosis 07/26/23 Non-Specified Procedures Procedure Date Related Diagnosis Body Site [...] of gastroparesis or rapid gastric emptying 3[facility] Impression: 1. LA Grade D reflux esophagitis [...] malignancy. 1 year screening is recommended. 9[facility] Impression: 1. No acute cardiopulmonary findings 10[facility] Impression: 1. Therre is no hemorrhage, mass effect, or evidence of acute territorial eschemia by CT criteria 2. Unremarkable CT angiogram of the brain 3. Unremarkable CT angiogram of the neck 11BRAIN MRI WITHOUT CONTRAST IMPRESSION: No significant change compared to the prior study. No acute intracranial abnormality. 12[facility] Video swallow by speech path normal radiology [...] palpable abnormality. 17Cardiomegaly without acute process. 18[facility] Impression: 1. Mild esophageal dysmotility 2. Postoperative [...] chronic interstitial thickening. No acute findings. 26[facility] Stomach, antrum/body: 1. Mild chronic gastritis with [...] MR & TR; LA mildly dilated 30[facility] Impression: 1. No acute cardiopulmonary findings 31Pathology [...] NO FACIAL FRACTURE IDENTIFIED BY RADIOGRAPHY. 34[facility] Impression: 1. No acute fracture or radiopaque foreign body within the left hand 35[facility] Impression: 1. One 5 mm polyp in the descending colon. Resected and retrieved 2. Non bleeding internal hemorrhoids 36tubular adenoma 37[facility] Impression: 1. The spirometry reveals mild obstruction [...] No specimens collected. 42polyps 43blepharoplasty 44left wrist Vital Signs Most recent to oldest [Reference Range]: 1 Patient Weight 86 kg (07/26/23 11:05 AM) Heart Rate 90 bpm (07/26/23 11:05 AM) Respiratory Rate 18 br/min (07/26/23 11:05 AM) Blood Pressure 122/78mmHg (07/26/23 11:05 AM) Cuff Pulse Pressure 44 mmHg (07/26/23 11:05 AM) BP Location # 1 Right Arm (07/26/23 11:05 AM) Social History Social History Type Response Smoking Status Never smoked cigaret padmini Sex Female Radiology * Contributor_system, MUSE01: VERIFY, PERFORM Event Display: EKG Authored Date: Please click on link to see image. FCM Outpt Note * MD Salazar, Cierra L: PERFORM Event Display: FCM Outpt Note Authored Date: Chief Complaint check up, would like ppd test, discuss reflux, fluid in lower extremities, BP fluctuations, balanceissues History of Present Illness * This patient is being followed longitudinally for chronic serious medical problems by Dr. Cierra Lincoln. Their most recent visitwith Dr. Lincoln: 08/26/21. SEPARATE PROBLEMS IN ADDITION TO HEALTH MAINTENANCE: Also presents to address NEW or CHRONIC medical issues. NEW CONCERNS(s): 1) Swelling in ankles& feet - currentepisodehasbeenpresentforpast2 weeks. Shefeels thatthis started after she had bunionectomy about 1 yr ago. Herlegs& feetswell e veryday, thoughthey dogo downa little bit overnight.She has pain in legs "like zippy little pains." 2) Pulmonaryembolus-this was found bpnjo1irzzo ago, when she was sick with pneumonia. It was her first blood clot & she has nofamilyhxof clots.Shethinks that she was told that she hadstay onblood thinner forever. She has had trouble with not being able to afford it. 3) Balanceproblems-she reports "I can't walk." She feelsthat thisisbecauseshe'ssoslow& haspoorbalance. Inaddition,she'soSOB that shecan hardlygoveryfar. Sheoftenstumbles. 4) Chesttightnessin center ofchest - shecan get this sometimes with exertion, & itcanbe associatedwithSOB, &nausea, butnot sweating.Shedoesnot know ifthis isrelatedtoherheartburn,or not. 5)GERD- eventhoughshe isonmultiplemedsfor this,shefeels thattheyonlyhelp alittlebit. Sheadmits thatshemissedherlastappt withGI& wassupposed tore scheduleit. She hasnotcalledthemback. Shestillhas heartburnalmost everyday. 6)Fecal/urinaryincontinence- shehadseenaspecialistatH[place],whotold herto have surgery. However,shenever gotback tothem& wonderedif sheshouldtry toschedulesurgerynow. CHRONIC PROBLEMS FOLLOW UP: See list detailed in the Assessment and Plan. Review of Systems Review of Systems- Constitutional: +fatigue, +weight gain. HEENT: no vision changes, or sinus congestion. Respiratory: no cough, +SOB, nowheezing. Cardiac: +chest pain, somepalpitations, +pedal edema. GI: + abdominal pain&nausea, novomiting, + fecal incontinence. : + urinaryincontinence. Neurologic: no headaches. Musculoskeletal: +joint pains. Physical Exam Vitals & Measurements HR:90(Monitored) RR:18 BP:122/78 SpO2:96% WT:86.000kg(Dosing) WT:86kg PHQ2 Data(Data Documented on:07/26/2023 11:05) Emotional health assessment NEGATIVE PE : Alert, in NAD. HEENT - PERRL. TM's - normal. Nares - clear. Oropharynx - normal. Neck - supple, without thyromegaly or lymphadenopathy. Lungs - clear, with good breath sounds bilaterally. Heart - RRR with II/ harshholosystolicmurmur at RUSB. LE's- 2+pedal edema of ankles & feet. Pedal pulses palpable bilat, despite edema. Abdomen - +BS, soft, NT without HSM or mass. Neuro - alert & oriented, speech & cognition normal. Skin - warm & dry. Psych - affect appropriate. EKG - NSR @ 77 BPM, with several PVC's, Diffuse mild T-wave flattening in lateral leads, comparedto previous tracing from 2021. Assessment/Plan 1.Chest tightness STATUS: new complaint,stable. DATA: hx, exam&EKGreviewed. GOAL: evaluate& txcauseofsx. PLAN: her sx arenot entirelytypicalforangina, however,thereissome slightlateral T-waveflattening oncurrentEKG, whichis more noticeable oncurrenttracing.WillorderstressECHO. I didadviseher that if sxwouldworsen or accelerate inany way, sheneeds togo to ER,immediately. 2.Aortic heart murmur STATUS : newfinding, stable. DATA : hx & exam reviewed. GOAL : evaluatefor valvulards. PLAN : obtainECHO,consider cardiology eval,pending these results. 3.Balance problem STATUS: newcomplaint, worse. DATA: hx, exam&gaitreviewed. GOAL: eval & txcauseof sx/gait dysfunction. PLAN: unclearcause, iewhetherduetodeconditioningvs multiple otherpossiblecauses.Her gaitwas observedupon leaving the exam& appeared normal,butslow.Cont current monitoring. Once cardiac status has been evaluated, may need to consider PT eval. 4.Esophagitis, reflux STATUS: Chronic, stable. DATA: hx & examreviewed. GOAL: relieve sx of acid reflux. PLAN: unclearwhatother tx couldbe offered,sinceshe vibha Famotidine, Carafate & 2 PPI's. Will needtofollowupwithGI, onceotherissuesare stabilized, as above.Stayvigilant with diet & non-pharmacological measures. 5.Urinary and fecal incontinence STATUS: Chronic stable. DATA: hxreviewed. GOAL: restorecontinence. PLAN: she may needrepeaturogyneeval,onceotherissueshavebeenevaluated. 6.HTN (hypertension) Status : chronic, controlled. Data : BP readings reviewed. Goal : maintain normal BP. Plan : continue current BP meds. Get electrolytes & renal function. 7.Acute pulmonary embolus STATUS: Chronic stable. DATA: hxreviewed. GOAL: preventrecurrence PLAN: unclear whyshe wasadvisedtobe onindefiniteanti- coagulation.I willreviewchartnotes&/or hospitalrecordstoverify.If this iscorrect,candiscussconverting toCoumadin. 8.Ankle edema STATUS: Chronic stable. DATA: hx & exam reviewed. GOAL: resolve edema. PLAN: unclearetiology.Obtainpro-BNP, CBC& TSH.Awaitresults of ECHO.If alltesting isconsistent withvenous insufficiency,will need todiscusssalt restriction & elevation. 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 10.Anxious depression Status : chronic, improved. Data : hx reviewed. Goal : maintain remission. Plan : continue same meds. Return in 2-3 months, after cardiac eval. 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 Dysphagia Edema Encounter for PPD test Endometrial thickening on ultrasound Esophagitis, reflux Facial tic Fatigue Gastroparesis Generalized weakness Hiatal hernia with GERD and esophagitis HTN (hypertension) HTN (hypertension) Hypothyroidism Intestinal metaplasia of gastric cardia Left hip pain Meniscus tear Mild persistent reactive airway disease without complication Panic disorder Pes anserine bursitis Urinary and fecal incontinence Weight disorder Resolved Acute dyspnea Acute head injury Acute pulmonary embolus Bereavement Cerebral concussion Chest discomfort Cough Facial trauma Fever Left arm pain Left knee pain Needlestick injury accident Needlestick injury of finger Syncope, vasovagal Procedure/Surgical History GASTRIC EMPTYING IMAG STUDY| Service Date: 10/13/2022Upper GI (gastrointestinal) endoscopy| Service Date: 3Colonoscopy| Service Date: 06/24/2021olonoscopy| Service Date: 06/24/2021olonoscopy| Service Date: 01/08/2021Mammogram| Service Date: 08/19/2020MRI| Service Date: 1CT angio of head/neck| Service Date: 05/27/2020hest x-ray| Service Date: 05/27/2020Videoswallow| Service Date: 04/11/2020Upper GI endoscopy| Service Date: 03/28/2020iagnostic hysteroscopy| Service Date: 01/28/2020CXR - Chest X-ray| Service Date: 11/24/2019Hernia repair| Service Date: 07/20/2018Ultrasound| Service Date: 05/11/2018CXR - Chest X- ray| Service Date: 08/23/2017Barium swallow| Service Date: 08/15/2017MRI of brain and brain stem with contrast| Service Date: 08/14/2017MRA of neck| Service Date: 08/14/2017CT of head| Service Date: 08/13/2017CT angiogram of head, neck and thorax| Service Date: 08/13/2017CXR - Chest X-ray| Service Date: 08/13/2017CT of cervical spine| Service Date: 08/13/2017CT of head| Service Date: 08/13/2017Pathology report| Service Date: 06/07/2017Barium swallow| Service Date: 06/06/2017Stress echocardiography using dobutamine| Service Date: 06/06/2017Cardiac echo| Service Date: 06/04/2017Upper GI endoscopy| Service Date: 06/03/2017Stress echocardiography using dobutamine| Service Date: 06/03/2017Chest x-ray| Service Date: 06/03/2017Facial bones X-ray| Service Date: 08/30/2016Hand X-ray| Service Date: 08/28/2016Colonoscopy| Service Date: 01/08/2016Spirometry| Service Date: 11/25/2015Paraesophageal hernia| Service Date: 07/11/2015Bravo pH capsule| Service Date: 05/16/2015Upper GI endoscopy| Service Date: 05/16/2015Ambulatory pH monitoring with Perez| Service Date: 03/07/2015Upper GI endoscopy| Service Date: 03/07/2015Colonoscopy| Service Date: 02/28/2009Eyelid lift| Service Date: 2005Cystectomy hand| Service Date: 2005Cardiac catheterization| Service Date: 2003Sling procedure of bladder neck| Service Date: 1991EA - Endometrial ablation| Service Date: 1989Excision of ganglion cystOral surgery Medications apixaban(Eliquis 5 mg oral tablet), 5 mg= 1 tab, PO, bid, 11 refills cholecalciferol(Vitamin D3 50,000 intl units (1250 mcg) oral capsule), 37798 Int_Unit= 1 cap, PO, q7days cyanocobalamin(cyanocobalamin 1000 mcg/mL injectable solution), See Instructions diclofenac topical(Voltaren 1% topical gel), 1 appl, topical, qid, PRN, 2 refills escitalopram(Lexapro 10 mg oral tablet), 10 mg= 1 tab, PO, Daily, 6 refills esomeprazole(esomeprazole 40 mg oral delayed release capsule), 40 mg= 1 cap, PO, Daily, 1 refills famotidine(famotidine 20 mg oral tablet), 40 mg= 2 tab, PO, bid, 1 refills hydrALAZINE(hydrALAZINE 10 mg oral tablet), 10 mg= 1 tab, PO, bid, 3 refills hydrOXYzine(hydrOXYzine hydrochloride 10 mg oral tablet), 1 tab, PO, bid, PRN, 1 refills levothyroxine(levothyroxine 50 mcg (0.05 mg) oral tablet), See Instructions, 3 refills lidocaine topical(Lidocaine Viscous 2% mucous membrane solution), 0.1 g= 5 mL, topical, ac, PRN, 1 refills metoprolol(metoprolol succinate 25 mg oral tablet, extended release), 25 mg= 1 tab, PO, Daily, 5 refills ondansetron(ondansetron 4 mg oral tablet), See Instructions pantoprazole(pantoprazole 40 mg oral delayed release tablet), See Instructions, 1 refills rOPINIRole(rOPINIRole 4 mg oral tablet), 1 tab, PO, qhs simvastatin(simvastatin 40 mg oral tablet), 40 mg= 1 tab, PO, qPM, 3 refills sucralfate(sucralfate 1 g oral tablet), 1 g= 1 tab, PO, ac and hs, 1 refills syringe(BD 1 mL Allergy Syringe 28G x 1/2"), See Instructions, 5 refills syringe(BD TB SYRINGE 27GX1/2"), See Instructions, 5 refills unlisted medication(BD TB SYRINGE 27GX1/2"), See Instructions unlisted medication(BD TB SYRINGE 27GX1/2"), See Instructions valsartan(valsartan 320 mg oral tablet), See Instructions Allergies Allergy Not found in Search(Severe)severe sensitivity to any opiate Latexcontact rash Nitroglyn E-Rflushing, headache, Vomiting benzodiazepinesaddiction potassium chlorideShortness of breath, pain in arm, IV Social History Smoking Status Never smoked cigarettes Alcohol Frequency:1-2 times per year Exercise - Does not exercise Sexual Sexually active:No Self described orientation:Heterosexual Tobacco - Denies Tobacco Use Use:Never smoker Family History Alcoholism: Mother, Father, Brother, PGF and PGM. Cancer of colon: MGF, MGM and PGM. Heart attack: Father and Brother. Hypertension: Mother, Father, Sister, Brother, MGM and PGM. Respiratory disease: Mother, Father and MGF. Stroke: MGM. Health Status Family Member(s) Immunizations Vaccine Date Status SARS-CoV-2 (COVID-19) mRNA-vacc - [id number] 12/15/2022 Recorded zoster vaccine, inactivated 11/13/2022 Recorded SARS-CoV-2 mRNA (Pfizer 12+) bivalent 12/11/2021 Recorded SARS-CoV-2 (COVID-19) mRNA BNT-162b2 vax 01/10/2021 Recorded Comments : 2022-01-20: Historical information-source unspecified SARS-CoV-2 (COVID-19) mRNA BNT-162b2 vax 05/17/2020 Recorded Comments : 2020-12-08: Historical information-source unspecified SARS-CoV-2 (COVID-19) mRNA BNT-162b2 vax 04/26/2020 Recorded Comments : 2020-12-08: Historical information-source unspecified influenza virus vaccine, inactivated 12/11/2019 Given influenza virus vaccine, inactivated 01/12/2019 Given influenza virus vaccine, inactivated 11/29/2016 Given influenza virus vaccine, inactivated 11/18/2015 Given Recommendations Health Maintenance Pending(in the next year) OverDue Breast Cancer Screening due08/20/22and every 731day Adult Influenza Vaccine due08/27/22and every 1year Due Adult COVID-19 Vaccination due07/26/23Unknown Frequency Adult Social Determinants of Health Screening due07/26/23Unknown Frequency Adult Tdap/Td Vaccine due07/26/23Unknown Frequency Medicare Annual Wellness Visit due07/26/23and every 1year Pneumococcal Vaccine Older Adults due07/26/23One-time only Shingles Vaccine due07/26/23One-time only Satisfied(in the past 1 year) Satisfied Body Mass Index on04/25/23.Satisfied by MAT Handy, Ashlye Lipid Screening on08/27/22.Satisfied by Contributor_system, [email or web address] Shingles Vaccine on11/13/22.Satisfied by MD Salazar, Cierra Burrows Electronic Signature on File Electronically Reviewed/Signed by: Cierra Lincoln MD Author Signature Dt/Tm:07/26/2023 04:29 PM Medical Transcription Editor [facility] [address], [address] [place] [address] [facility] Patient Care team information Care Team Personnel Name: GATITO Breaux Tara Position: Nurse Pract - Family Med Member Role: Lifetime Relationship Address: Address: [address] [place] [address] [place] Name: MD Lincoln Amy L Position: Physician - Family Med Member Role: Primary Care Provider Address: Address: [address] [facility] [address] [place] [address] Name: GATITO Dean Shari A Position: Nurse Pract - Family Med Member Role: Lifetime Relationship Address: Address: [address] [facility] [address] [place] [address] Care Team Related Persons Name: OKSANA ROSALES Name: KOLBY ROSALES Address: home [address] [place] [address], [phone]
--- OUTSIDE RECORDS SUMMARY | 2023-08-11 04:20 | External Medical Summary | Continuity of Care Document ---
Author Name Unknown Organization [address] Address [address] [place] [id number] Care Team Providers Care Merchandise Examiner Name Role Phone Cierra Lincoln Stormy Primary Care Physician [phone] Encounter [facility] [id number] Date(s): 04/25/23 - 04/25/[address] [place] [address] [place] [phone] Encounter Diagnosis Body mass index [BMI] 34.0-34.9, adult(Discharge Diagnosis) - 04/25/23 Chronic GERD(Discharge Diagnosis) - 04/25/23 Anticoagulated(Discharge Diagnosis) - 04/25/23 Discharge Disposition: Home or Self Care Attending Physician: GATITO Rob Katy Marie Allergies, Adverse Reactions, Alerts Substance Reaction Severity Status potassium chloride 1 Shortness of breath pain in arm IV Active benzodiazepines addiction Active Nitroglyn E-R flushing headache Vomiting Active Latex contact rash Active Allergy Not found in Search 2 severe sensitivity to an y opiate Severe Active 1Only if IV infused per patient 2severe sensitivity to any opiate Assessment and Plan Extracted from: Title:Office Visit Note Author:GATITO Rob Kat y Marie Date:04/25/23 Anticoagulated Problem isChronic Goal:maintenance Data:_ Plan:Discussed the importance of taking her medications as prescribed. Discussedpossiblerisk of not taking anticoagulation therapy. Encouraged her to follow-up with her PCP. She needs a new prescription for Eliquis. We did discuss other medication optionsshe would like to trythe Eliquis again and see if they can get financial assistance. Body mass index [BMI] 34.0-34.9, adult Chronic GERD Problem isChronic Goal:maintenance Data:_ Plan:Since the patient is on several different medications and high doses we discussed the option of referring Rito down in [place] for second opinion or further management. Encouraged bland diet and symptomatic control at this time. Patient verbalizes understanding and agreement with the plan. We discussed return and ER precautions. Immunizations Given and Recorded Vaccine Date Status Refusal Reason SARS-CoV-2 (COVID-19) mRNA BNT-162b2 vax 1 01/10/21 [...] Allergy Syringe 28G x 1/2" Start: 06/25/19 14:27:00 EDT, See Instructions, Disp# 1 kit, Refills: 5, to be used to adminster Vitamin B12 injection, Pharmacy: [id number] Start Date: 06/25/19 Status: Ordered BD TB SYRINGE 27GX1/2" BD TB SYRINGE 27GX1/2", See Instructions, Disp# 1 syringe, Refills: 5, TO BE USED TO ADMINSTER VITAMIN B12 INJECTION, Pharmacy [id number] Start Date: 07/11/20 Status: Ordered BD TB SYRINGE 27GX1/2" Start: 10/15/21 20:14:00 EDT, BD TB SYRINGE 27GX1/2", See Instructions, Disp# 1 unknown unit, Refills: 5, TO BE USED TO ADMINSTER VITAMIN B12 INJECTION, Pharmacy [id number] Start Date: 10/15/21 Status: Ordered BD TB SYRINGE 27GX1/2" Start: 06/25/19 14:27:00 EDT, See Instructions, Disp# 1, Refills: 5, TO BE USED TO ADMINSTER VITAMIN B12 INJECTION, Pharmacy: [facility] #[id number], TO BE USED TO ADMINSTER VITAMIN B12 INJECTION Start Date: 06/25/19 Status: Ordered cyanocobalamin 1000 mcg/mL injectable solution Start: 10/15/21 20:14:00 EDT, See Instructions, Disp# 3 mL, Refills: 5, INJECT 1,000MCG EVERY MONTH, Pharmacy: [id number] Start Date: 10/15/21 Status: Ordered Eliquis 5 mg oral tablet Start: 04/25/23 11:53:00 EST, 1 tab, PO, bid, Disp# 60 tab, Refills: 11, Pharmacy: [facility] Start Date: 04/25/23 Stop Date: 04/19/24 Status: Ordered esomeprazole 40 mg oral delayed release capsule Start: 04/21/23 7:14:00 EST, 1 cap, PO, Daily, Disp# 90 cap, Refills: 1, Pharmacy: [facility] Start Date: 04/21/23 Status: Ordered famotidine 20 mg oral tablet Start: 05/27/22 11:29:00 EDT, 2 tab, PO, bid, Disp# 360 tab, Refills: 1, Pharmacy: [facility] Start Date: 05/27/22 Stop Date: 11/23/22 Status: Ordered hydrALAZINE 10 mg oral tablet Start: 08/27/22 8:19:00 EDT, 1 tab, PO, bid, Disp# 180 tab, Refills: 3, for BLOOD PRESSURE, Pharmacy: [facility] Start Date: 08/27/22 Status: Ordered hydrOXYzine hydrochloride 10 mg oral tablet Start: 03/09/23 8:01:00 EST, 1 tab, PO, bid, Disp# 180 tab, Refills: 1, PRN: NEEDED FOR ANXIETY,Pharmacy: [id number] Start Date: 03/09/23 Status: Ordered levothyroxine 50 mcg (0.05 mg) oral tablet Start: 06/30/21 16:51:00 EDT, See Instructions, Disp# 34 tab, Refills: 3, 1 tab PO Daily for 6 days, then 2 po daily on one day of week, Note to Pharmacy: Please cancel rx for 25 mcg once daily, Pharmacy: [facility] Start Date: 06/30/21 Status: Ordered Lexapro 10 mg oral tablet Start: 06/09/21 17:50:00 EDT, 1 tab, PO, Daily, Disp# 30 tab, Refills: 6, Pharmacy: [facility] Start Date: 06/09/21 Status: Ordered Lidocaine Viscous 2% mucous membrane solution Start: 05/27/22 11:26:00 EDT, 5 mL, topical, ac, Disp# 100 mL, Refills: 1, PRN: as needed for mouthsore pain, Pharmacy: [facility] Start Date: 05/27/22 Stop Date: 07/08/22 Status: Ordered metoprolol succinate 25 mg oral tablet, extended release Start: 05/07/21 10:02:00 EST, 1 tab, PO, Daily, Disp# 30 tab, Refills: 5, Pharmacy: [facility] Start Date: 05/07/21 Status: Ordered ondansetron 4 mg oral tablet See Instructions, Disp# 270 tab, Refills: 0, TAKE 1 TABLET BY MOUTH EVERY 8 HOURS, Pharmacy: [facility] [id number] Start Date: 07/11/20 Status: Ordered pantoprazole 40 mg oral delayed release tablet Start: 04/21/23 7:14:00 EST, See Instructions, Disp# 90 tab, Refills: 1, TAKE 1 TABLET BY MOUTH EVERY DAY, Pharmacy: [facility] Start Date: 04/21/23 Status: Ordered rOPINIRole 4 mg oral tablet Start: 12/13/22 16:07:00 EDT, 1 tab, PO, qhs, Disp# 30 tab, Refills: 6, Pharmacy: [facility] Start Date: 12/13/22 Status: Ordered simvastatin 40 mg oral tablet Start: 08/30/22 17:20:00 EDT, 1 tab, PO, qPM, Disp# 90 tab, Refills: 3, Note to Pharmacy: D/C 20 mgdose, Pharmacy: [facility] Start Date: 08/30/22 Stop Date: 08/25/23 Status: Ordered sucralfate 1 g oral tablet Start: 05/27/22 11:24:00 EDT, 1 tab, PO, ac and hs, Disp# 120 tab, Refills: 1, on an empty stomach,Pharmacy: [facility] Start Date: 05/27/22 Stop Date: 07/26/22 Status: Ordered valsartan 320 mg oral tablet See Instructions, Disp# 90 tab, Refills: 3, TAKE 1 TABLET BY MOUTH EVERY DAY, Pharmacy: [id number] Start Date: 05/12/21 Status: Ordered Vitamin D3 50,000 intl units (1250 mcg) oral capsule Start: 06/15/20 9:37:00 EDT, 1 cap, PO, q7days, Disp# 8 cap, Pharmacy: [id number] Start Date: 06/15/20 Stop Date: 08/10/20 Status: Ordered Voltaren 1% topical gel Start: 05/08/18 8:59:00 EDT, 1 appl, topical, qid, Disp# 100 g, Refills: 2, not to exceed 16 grams/day/single joint of lower extremities, PRN: Pain, Pharmacy: [facility][id number] Start Date: 05/08/18 Stop Date: 08/06/18 Status: Ordered Mental Status 04/25/23 Barriers to Learning one year None evide nt Mandatory Health Literacy Documentation Yes Health Literacy Communication Barriers N ever Primary Language Citizen Of [place] Problem List Condition Confirmation Course Effective Dates Status H ealth Status Informant Adjustment disorder with depressed mood Confirmed Active Anxiety Confirmed Active Generalized weakness Confirmed Active Benzodiazepine (tranquilizer) overdose Confirmed Active Pes anserine bursitis Confirmed Active Chronic cough Confirmed Active Dysphagia Confirmed Active Edema Confirmed Active Endometrial thickening on ultrasound Confirmed Active Benign essential tremor Confirmed Active Facial tic Confirmed Active Fatigue Confirmed Active Esophagitis, reflux Confirmed Active Gastroparesis Confirmed Active Hiatal hernia with GERD and esophagitis Confirmed Active Left hip pain Confirmed Active HTN (hypertension) Confirmed Active HTN (hypertension) Confirmed Active Hypothyroidism Confirmed Active Intestinal metaplasia of gastric cardia Confirmed Active Mild persistent reactive airway disease without complication Confirmed Active Anxious depression Confirmed Active Panic disorder Confirmed Active Meniscus tear Confirmed Active Weight disorder Confirmed Active Diagnosis Diagnosis Type Effective Dates Health Status Clinical Service Informant Anticoagulated Discharge Diagnosis 04/25/23 Non-Specified Body mass index [BMI] 34.0-34.9, adult Discharge Diagnosis 04/25/23 Non-Specified Chronic GERD Discharge Diagnosis 04/25/23 Non-Specified Procedures Procedure Date Related Diagnosis Body [...] of gastroparesis or rapid gastric emptying 3[facility] Impression: 1. LA Grade D reflux esophagitis [...] malignancy. 1 year screening is recommended. 9[facility] Impression: 1. No acute cardiopulmonary findings 10[facility] Impression: 1. Therre is no hemorrhage, mass effect, or evidence of acute territorial eschemia by CT criteria 2. Unremarkable CT angiogram of the brain 3. Unremarkable CT angiogram of the neck 11BRAIN MRI WITHOUT CONTRAST IMPRESSION: No significant change compared to the prior study. No acute intracranial abnormality. 12[facility] Video swallow by speech path [...] palpable abnormality. 17Cardiomegaly without acute process. 18[facility] Impression: 1. Mild esophageal dysmotility 2. Postoperative [...] chronic interstitial thickening. No acute findings. 26[facility] Stomach, antrum/body: 1. Mild chronic gastritis with [...] MR & TR; LA mildly dilated 30[facility] Impression: 1. No acute cardiopulmonary findings 31Pathology [...] NO FACIAL FRACTURE IDENTIFIED BY RADIOGRAPHY. 34[facility] Impression: 1. No acute fracture or radiopaque foreign body within the left hand 35[facility] Impression: 1. One 5 mm polyp in the descending colon. Resected and retrieved 2. Non bleeding internal hemorrhoids 36tubular adenoma 37[facility] Impression: 1. The spirometry reveals mild obstruction [...] Most recent to oldest [Reference Range]: 1 Height 159 cm (04/25/23 11:29 AM) Patient Weight 87.3 kg (04/25/23 11:29 AM) Body Mass Index 34.53 kg/m2 (04/25/23 11:29 AM) Temperature [36.5-37.9 DegC] 37.6 DegC (04/25/23 11:29 AM) Blood Pressure 150/100mmHg (04/25/23 11:29 AM) Cuff Pulse Pressure 50 mmHg (04/25/23 11:29 AM) Social History Social History Type Response Smoking Status Never smoked cigaret padmini Sex Female FCM Outpt Note * GATITO Rob, Ashley Douglass: PERFORM Event Display: FCM Outpt Note Authored Date: [id number] Chief Complaint Pt is here to discuss digestive issues heartburn, gagging, nausea, diarrhea and constipation. Also having left jaw pain for about 2 weeks History of Present Illness Brook is a 72 year old female who presents for ongoing and worsening GERD symptoms. She reports that 3+ times a week she have an attack of epigastric pain and burning that makes her throat and jaw hurt. She will usually get a coughing fit right before this occurs. She also notes that she ate chili the other night which made her symptoms much worse. She also notes that she has not been taking her Eliquis "for some time" because it is expensive andthey fell into the donut hole with insurance. She was on thisfora PE. Review of Systems A total of 10 systems were reviewed. Pertinent positive and negatives addressed in HPI, all other findings are negative. Physical Exam Vitals & Measurements T:37.6C BP:150/100 SpO2:96% HT:159cm WT:87.3kg WT:87.300kg(Dosing) BMI:34.53 PHQ2 Data(Data Documented on:04/25/2023 11:24) Emotional health assessment NEGATIVE Constitutional: Alert and oriented, No acute distress, Well-appearing, Normal mood and affect Respiratory: Lung sounds are clear, equal chest rise and fall with breathing, no pursed lip breathing Cardiovascular: Heart sounds regular rate and rhythm, without gallop or murmur, no edema HEENT: Normocephalic, atraumatic, conjunctiva are clear, sclera non-icteric Gastrointestinal: abdomen is soft and non-tender to palpation, normoactive BS, no organomegaly/masses/hernia Skin: Warm, pink, dry, intact Assessment/Plan Anticoagulated Problem isChronic Goal:maintenance Data:_ Plan:Discussed the importance of taking her medications as prescribed. Discussedpossiblerisk of not taking anticoagulation therapy. Encouraged her to follow-up with her PCP. She needs a new prescription for Eliquis. We did discuss other medication optionsshe would like to trythe Eliquis again and see if they can get financial assistance. Body mass index [BMI] 34.0-34.9, adult Chronic GERD Problem isChronic Goal:maintenance Data:_ Plan:Since the patient is on several different medications and high doses we discussed the optionof referring toGI down in [place] for second opinion or further management. Encouraged bland diet and symptomatic control at this time. Patient verbalizes understanding and agreement with the plan. We discussed return and ER precautions. Problem List/Past Medical History Ongoing Adjustment disorder with depressed mood Anxiety Anxious depression Benign essential tremor Benzodiazepine (tranquilizer) overdose Chronic cough Dysphagia Edema Endometrial thickening on ultrasound Esophagitis, reflux Facial tic Fatigue Gastroparesis Generalized weakness Hiatal hernia with GERD and esophagitis HTN (hypertension) HTN (hypertension) Hypothyroidism Intestinal metaplasia of gastric cardia Left hip pain Meniscus tear Mild persistent reactive airway disease without complication Panic disorder Pes anserine bursitis Weight disorder Historical Acute dyspnea Acute head injury Acute pulmonary embolus Bereavement Cerebral concussion Chest discomfort Cough Facial trauma Fever Left arm pain Left knee pain Needlestick injury accident Needlestick injury of finger Syncope, vasovagal Procedure/Surgical History GASTRIC EMPTYING IMAG STUDY (10/13/2022)Upper GI (gastrointestinal) endoscopy (07/07/2022)Colonoscopy (06/24/2021)Colonoscopy (06/24/2021)Colonoscopy (01/08/2021)Mammogram (08/19/2020)MRI (05/27/2020)CT angio of head/neck (05/27/2020)Chest x-ray (05/27/2020)Videoswallow (04/11/2020)Upper GI endoscopy (03/28/2020)Diagnostic hysteroscopy (01/28/2020)CXR - Chest X-ray (11/24/2019)Hernia repair (07/20/2018)Ultrasound (05/11/2018)CXR - Chest X-ray (08/23/2017)Barium swallow (08/15/2017)MRI of brain and brain stem with contrast (08/14/2017)MRA of neck (08/14/2017)CT of head (08/13/2017)CT angiogram of head, neck and thorax (08/13/2017)CXR - Chest X-ray (08/13/2017)CT of cervical spine (08/13/2017)CT of head (08/13/2017)Pathology report (06/07/2017)Barium swallow (06/06/2017)Stress echocardiography using dobutamine (06/06/2017)Cardiac echo (06/04/2017)Upper GI endoscopy (06/03/2017)Stress echocardiography using dobutamine (06/03/2017)Chest x-ray (06/03/2017)Facial bones X-ray (08/30/2016)HandX-ray (08/28/2016)Colonoscopy (01/08/2016)Spirometry (11/25/2015)Paraesophageal hernia (07/11/2015)Perez pH capsule (05/16/2015)Upper GI endoscopy (05/16/2015)Ambulatory pH monitoring with Perez (03/07/2015)Upper GI endoscopy (03/07/2015)Colonoscopy (02/28/2009)Eyelid lift (2005)Cystectomy hand (2005)Cardiac catheterization (2003)Sling procedure of bladder neck(1991)EA - Endometrial ablation (1989)Excision of ganglion cystOral surgery Medications apixaban(Eliquis 5 mg oral tablet), 5 mg= 1 tab, PO, bid, 11 refills cholecalciferol(Vitamin D3 50,000 intl units (1250 mcg) oral capsule), [address]70 Int_Unit= 1 cap, PO, q7days cyanocobalamin(cyanocobalamin 1000 [...] mg oral tablet), 1 tab, PO, bid, PRN levothyroxine(levothyroxine 50 mcg (0.05 mg) oral tablet), [...] Member(s) Immunizations Vaccine Date Status SARS-CoV-2 (COVID-19) mRNA BNT-162b2 vax 01/10/2021 Recorded [...] due08/27/22and every 1year Due Adult COVID-19 Vaccination due04/25/23Unknown Frequency Adult Social Determinants of Health Screening due04/25/23Unknown Frequency Adult Tdap/Td Vaccine due04/25/23Unknown Frequency Medicare Annual Wellness Visit due04/25/23and every 1year Pneumococcal Vaccine Older Adults due04/25/23One-time only Shingles Vaccine due04/25/23One-time only Satisfied(in the past 1 year) Satisfied Body Mass Index on04/25/23.Satisfied by MAT Handy Carli Lipid Screening on08/27/22.Satisfied by Contributor_system, [employer] Electronic Signature on File CC: Elaine Orozco, DO [address] [address] Electronically Reviewed/Signed by: GATITO Millard Author Signature Dt/Tm:04/25/2023 12:49 PM Department of Family Medicine [facility] Patient Care team information Care Team Personnel Name: GATITO Breaux Tara Position: Nurse Pract - Family Med Member Role: Lifetime Relationship Address: Address: [address] [place] [address], [place] [address] [place] Name: MD Salazar, Cierra L Position: Physician - Family Med Member Role: Primary Care Provider Address: Address: [address] [facility] [address] [place] [address] [place] Name: GATITO Dean Shari A Position: Nurse Pract - Family Med Member Role: Lifetime Relationship Address: Address: [address] [facility] [address] [place] [address] Care Team Related Persons Name: OKSANA ROSALES Name: KOLBY ROSALES Address: [address], [id number]
--- OUTSIDE RECORDS SUMMARY | 2023-08-11 04:20 | External Medical Summary | Continuity of Care Document ---
Author Name Unknown Organization [facility] [address] Address [address] [place], [place] [id number] Care Team Providers Care Information Technology Instructor Name Role Phone Cierra Lincoln Primary Care Physician [phone] [facility]counter [facility] [id number] Date(s): 07/27/23 - 07/27/23 [facility] [address] SHAI 1 [facility] 303 [facility], [facility] 1 [place], [place] [phone] Encounter Diagnosis Other chest pain(Final) - Other nonrheumatic aortic valve disorders(Final) - Effusion, unspecified ankle(Final) - Essential (primary) hypertension(Final) - Other abnormalities of gait and mobility(Final) - Discharge Disposition: Home or Self Care Attending Physician: MD Lincoln Amy L Referring Physician: MD Lincoln Amy L Allergies, Adverse [...] Status Refusal Reason SARS-CoV-2 (COVID-19) mRNA-vacc - [id number] 12/15/22 Recorded zoster vaccine, inactivated 11/13/22 Recorded [...] used to adminster Vitamin B12 injection, Pharmacy: [facility] [id number] Start Date: 06/25/19 Status: Ordered BD TB SYRINGE 27GX1/2" BD TB SYRINGE 27GX1/2", See Instructions, Disp# 1 syringe, Refills: 5, TO BE USED TO ADMINSTER VITAMIN B12 INJECTION, Pharmacy [facility] STORE [id number] Start Date: 07/11/20 Status: Ordered BD TB SYRINGE 27GX1/2" Start: 10/15/21 8:14:00 PM EDT, BD TB SYRINGE 27GX1/2", See Instructions, Disp# 1 unknown unit, Refills: 5, TO BE USED TO ADMINSTER VITAMIN B12 INJECTION, Pharmacy [facility] STORE [id number] Start Date: 10/15/21 Status: Ordered BD TB SYRINGE 27GX1/2" Start: 06/25/19 2:27:00 PM EDT, See Instructions, Disp# 1, Refills: 5, TO BE USED TO ADMINSTER VITAMIN B12 INJECTION, Pharmacy: [facility]/pharmacy #[id number], TO BE USED TO ADMINSTER VITAMIN B12 INJECTION Start Date: 06/25/19 Status: Ordered cyanocobalamin 1000 mcg/mL injectable solution Start: 10/15/21 8:14:00 PM EDT, See Instructions, Disp# 3 mL, Refills: 5, INJECT 1,000MCG EVERY MONTH, Pharmacy: [facility] STORE [id number] Start Date: 10/15/21 Status: Ordered Eliquis 5 mg oral tablet Start: 04/25/23 11:53:00 AM EST, 1 tab, PO, bid, Disp# 60 tab, Refills: 11, Pharmacy: [facility] 2229 Start Date: 04/25/23 Stop Date: 04/19/24 Status: Ordered esomeprazole 40 mg oral delayed release capsule Start: 04/21/23 7:14:00 AM EST, 1 cap, PO, Daily, Disp# 90 cap, Refills: 1, Pharmacy: [facility] 2229 Start Date: 04/21/23 Status: Ordered famotidine 20 mg oral tablet Start: 05/27/22 11:29:00 AM EDT, 2 tab, PO, bid, Disp# 360 tab, Refills: 1, Pharmacy: [facility] 2229 Start Date: 05/27/22 Stop Date: 11/23/22 Status: Ordered hydrALAZINE 10 mg oral tablet Start: 08/27/22 8:19:00 AM EDT, 1 tab, PO, bid, Disp# 180 tab, Refills: 3, for BLOOD PRESSURE, Pharmacy: [facility] 2229 Start Date: 08/27/22 Status: Ordered hydrOXYzine hydrochloride 10 mg oral tablet Start: 05/30/23 7:53:00 AM EDT, 1 tab, PO, bid, Disp# 180 tab, Refills: 1, PRN: NEEDED FOR ANXIETY, Pharmacy: [facility] 2229 Start Date: 05/30/23 Status: Ordered levothyroxine 50 mcg (0.05 mg) oral tablet Start: 06/30/21 4:51:00 PM EDT, See Instructions, Disp# 34 tab, Refills: 3, 1 tab PO Daily for 6 days, then 2 po daily on one day of week, Note to Pharmacy: Please cancel rx for 25 mcg once daily, Pharmacy: [facility] 2229 Start Date: 06/30/21 Status: Ordered Lexapro 10 mg oral tablet Start: 06/09/21 5:50:00 PM EDT, 1 tab, PO, Daily, Disp# 30 tab, Refills: 6, Pharmacy: [facility] 2229 Start Date: 06/09/21 Status: Ordered Lidocaine Viscous 2% mucous membrane solution Start: 05/27/22 11:26:00 AM EDT, 5 mL, topical, ac, Disp# 100 mL, Refills: 1, PRN: as needed for mouth sore pain, Pharmacy: [facility] 2229 Start Date: 05/27/22 Stop Date: 07/08/22 Status: Ordered metoprolol succinate 25 mg oral tablet, extended release Start: 05/07/21 10:02:00 AM EST, 1 tab, PO, Daily, Disp# 30 tab, Refills: 5, Pharmacy: [facility] 2229 Start Date: 05/07/21 Status: Ordered ondansetron 4 mg oral tablet See Instructions, Disp# 270 tab, Refills: 0, TAKE 1 TABLET BY MOUTH EVERY 8 HOURS, Pharmacy: [facility] [id number] Start Date: 07/11/20 Status: Ordered pantoprazole 40 mg oral delayed release tablet Start: 04/21/23 7:14:00 AM EST, See Instructions, Disp# 90 tab, Refills: 1, TAKE 1 TABLET BY MOUTH EVERY DAY, Pharmacy: [facility] 2229 Start Date: 04/21/23 Status: Ordered rOPINIRole 4 mg oral tablet Start: 07/06/23 8:00:00 AM EDT, 1 tab, PO, qhs, Disp# 30 tab, Refills: 5, Pharmacy: [facility] 2229 Start Date: 07/06/23 Status: Ordered simvastatin 40 mg oral tablet Start: 08/30/22 5:20:00 PM EDT, 1 tab, PO, qPM, Disp# 90 tab, Refills: 3, Note to Pharmacy: D/C 20 mgdose, Pharmacy: [facility] 2229 Start Date: 08/30/22 Stop Date: 08/25/23 Status: Ordered sucralfate 1 g oral tablet Start: 05/27/22 11:24:00 AM EDT, 1 tab, PO, ac and hs, Disp# 120 tab, Refills: 1, on an empty stomach, Pharmacy: [facility] 2229 Start Date: 05/27/22 Stop Date: 07/26/22 Status: Ordered valsartan 320 mg oral tablet See Instructions, Disp# 90 tab, Refills: 3, TAKE 1 TABLET BY MOUTH EVERY DAY, Pharmacy: [facility] [id number] Start Date: 05/12/21 Status: Ordered Vitamin D3 50,000 intl units (1250 mcg) oral capsule Start: 06/15/20 9:37:00 AM EDT, 1 cap, PO, q7days, Disp# 8 cap, [id number] Start Date: 06/15/20 Stop Date: 08/10/20 Status: Ordered Voltaren 1% topical gel Start: 05/08/18 8:59:00 AM EDT, 1 appl, topical, qid, Disp# 100 g, Refills: 2, not to exceed 16 grams/day/single joint of lower extremities, PRN: Pain, [id number] Start Date: 05/08/18 Stop Date: 08/06/18 [...] evidence of gastroparesis or rapid [facility] empt[facility]: 1. LA Grade D reflux [...] the prior study. No acute intracranial abnormality. 12[facility] Video swallow by speech path normal radiology [...] No specimens collected. 42polyps 43blepharoplasty 44left wrist Results Laboratory List Name Date Complete Blood Count w Differential (CBC ,DIFFH) 07/27/23 Comprehensive Metabolic Panel (COMP META B PANEL) 07/27/23 Hemoglobin A1C (HEMOGLOBIN, A1C) 07/27/23 Lipid Profile (LIPOPROTEINS) 07/27/23 NT-Pro BNP 07/27/23 Thyroid Stimulating Hormone (TSH) 4 Most recent to oldest [Reference Range]: 1 eGFR CKD-EPI [>60 mL/min/1.73 m2] 70 mL/ min/1.73 m2 1 (07/27/23 11:59 AM) Estimated Average Glucose 117 mg/dL (07/27/23 11:59 AM) Non-HDL 215 mg/dL 2 (07/27/23 11:59 AM) BNP, NT-Pro [<125 pg/mL] 83 pg/mL (07/27/23 11:59 AM) Estimated CrCl 58.47 mL/min (07/27/23 12:41 PM) MPV [9.0-12.2 fL] 10.1 fL (07/27/23 11:59 AM) Immature Gran% 0.7 % (07/27/23 11: AM) Neut% 63.6 % (07/27/23 11:59 AM) Lymph% 23.4 % (07/27/23 11:59 AM) Mora% 8.7 % (07/27/23 11:59 AM) Baso% 1.2 % (07/27/23 11 AM) Eos% 2.4 % (07/27/23 11:59 AM) Immat Gran, Abs [0-0.4 K/uL] 0.07 K/uL (07/27/23 11:59 AM) Neut, Abs [2.0-7.7 K/uL] 6.61 K/uL (07/27/23 11:59 AM) Lymph, Abs [1.0-3.4 K/uL] 2.44 K/uL (07/27/23 11:59 AM) Mora, Abs [0-1.0 K/uL] 0.91 K/uL (07/27/23 11:59 AM) Baso, Abs [0-0.1 K/uL] 0.13 K/uL *HI* (07/27/23 11:59 AM) Eos, Abs [0-0.5 K/uL] 0.25 K/uL (07/27/23 11:59 AM) Type of Diff: AUTO *Unknown* (07/27/23 11:59 AM) RDW [11.5-14.2 %] 15.2 % *HI* (07/27/23 11:59 AM) Anion Gap [5-14 mmol/L] 8 mmol/L (07/27/23 11:59 AM) Alb [3.5-5.0 g/dL] 4.5 g/dL (07/27/23 11:59 AM) Alk Phos [38-126 unit/L] 99 unit/L (07/27/23 AM) ALT [<35 unit/L] 20 unit/L (07/27/23 AM) AST [15-46 unit/L] 25 unit/L (07/27/23 AM) BUN [7-20 mg/dL] 13 mg/dL (07/27/23 AM) Ca [8.4-10.2 mg/dL] 9.1 mg/dL (07/27/23 AM) Chol/HDL 5 (07/27/23 AM) Chol [125-200 mg/dL] 269 mg/dL *HI* (07/27/23) Cl- [96-107 mmol/L] 108 mmol/L *HI* (07/27/23 AM) HCO3 [22-30 mmol/L] 24 mmol/L (07/27/23 AM) Cret [0.60-1.00 mg/dL] 0.87 mg/dL (07/27/23 AM) HbA1c [<5.7 %] 5.7 % 3 *HI* (07/27/23 AM) Glu [74-106 mg/dL] 130 mg/dL *HI* (07/27/23 AM) Hct [35-44 %] 40.5 % (07/27/23 AM) HDL [>35 mg/dL] 54 mg/dL (07/27/23 AM) Hgb [11.7-15.0 g/dL] 12.5 g/dL (07/27/23 AM) K [3.5-5.1 mmol/L] 3.8 mmol/L (07/27/23 AM) LDL Chol, Calculated [50-130 mg/dL] 172 mg/dL *HI* (07/27/23 AM) MCH [28-33 pg] 26.0 pg *LOW* (07/27/23 AM) MCHC [32-36 g/dL] 30.9 g/dL *LOW* (07/27/23 AM) MCV [81-96 fL] 84.2 fL (5/29/24 11:59 AM) Na [137-145 mmol/L] 140 mmol/L (07/27/23 11:59 AM) Plts [150-350 K/uL] 347 K/uL (07/27/23 11:59 AM) RBC [3.90-5.00 M/uL] 4.81 M/uL (07/27/23 11:59 AM) T Bili [0.2-1.3 mg/dL] 0.7 mg/dL (07/27/23 11:59 AM) Prot [6.3-8.2 g/dL] 8.2 g/dL (07/27/23 11:59 AM) TG [<200 mg/dL] 216 mg/dL *HI* (07/27/23 11:59 AM) TSH [0.47-4.68 uIU/mL] 2.63 uIU/mL 4 (07/27/23 11:59 AM) WBC [4.0-10.4 K/uL] 10.41 K/uL *HI* (07/27/23 11:59 AM) 1Result Comment: Testing Performed By: Dept of Pathology [facility], [address] [place] [address] 2Result Comment: Testing Performed By: Dept of Pathology [address] [address] 3Result Comment: ADA Recommended [place] Reference Range: Normal: <5.7% Prediabetes: 5.7-6.4% Diabetes: >6.4% 4Result Comment: Testing Performed By: Dept of Pathology [facility], [address] [place] [address], [place] [address] Social History Social History Type Response Smoking Status Never smoked cigaret padmini Sex Female Patient Care team information Care Team Personnel Name: GATITO Breaux Tara Position: Nurse Pract - Family Med Member Role: Lifetime Relationship Address: Address: [address] [place] [address] [place] Name: MD Lincoln Amy L Position: Physician - Family Med Member Role: Primary Care Provider Address: Address: [address] [place] [address] [place] Name: GATITO Dean Shari A Position: Nurse Pract - Family Med Member Role: Lifetime Relationship Address: Address: [address] [place] [address], [place] [address] Care Team Related Persons Name: OKSANA ROSALES Name: KOLBY ROSALES Address: [address], [id number]
--- OUTSIDE RECORDS SUMMARY | 2023-08-11 04:20 | External Medical Summary | Continuity of Care Document ---
Author Name Unknown Organization [place] [address] Address [address] [place], [place] [id number] Care Team Providers Care Materials Development Engineer Name Role Phone Cierra Lincoln Primary Care Physician [phone] [id number] Date(s): 07/29/23 - 07/29/23 [facility] [address], [address] [place] [address] [phone] Discharge Disposition: Home or Self Care Attending [...] Status Refusal Reason SARS-CoV-2 (COVID-19) mRNA-vacc - [id number] 12/15/22 Recorded zoster vaccine, inactivated 11/13/22 Recorded [...] used to adminster Vitamin B12 injection, Pharmacy: [facility] 2229 Start Date: 06/25/19 Status: Ordered BD TB SYRINGE 27GX1/2" BD TB SYRINGE 27GX1/2", See Instructions, Disp# 1 syringe, Refills: 5, TO BE USED TO ADMINSTER VITAMIN B12 INJECTION, Pharmacy [facility] STORE [id number] Start Date: 07/11/20 Status: Ordered BD TB SYRINGE 27GX1/2" Start: 10/15/21 8:14:00 PM EDT, BD TB SYRINGE 27GX1/2", See Instructions, Disp# 1 unknown unit, Refills: 5, TO BE USED TO ADMINSTER VITAMIN B12 INJECTION, Pharmacy [facility] STORE [id number] Start Date: 10/15/21 Status: Ordered BD TB SYRINGE 27GX1/2" Start: 06/25/19 2:27:00 PM EDT, See Instructions, Disp# 1, Refills: 5, TO BE USED TO ADMINSTER VITAMIN B12 INJECTION, Pharmacy: [facility]/pharmacy #[id number], TO BE USED TO ADMINSTER VITAMIN B12 INJECTION Start Date: 06/25/19 Status: Ordered cyanocobalamin 1000 mcg/mL injectable solution Start: 10/15/21 8:14:00 PM EDT, See Instructions, Disp# 3 mL, Refills: 5, INJECT 1,000MCG EVERY MONTH, Pharmacy: [facility] STORE [id number] Start Date: 10/15/21 Status: Ordered Eliquis 5 mg oral tablet Start: 04/25/23 11:53:00 AM EST, 1 tab, PO, bid, Disp# 60 tab, Refills: 11, Pharmacy: [facility] 2229 Start Date: 04/25/23 Stop Date: 04/19/24 Status: Ordered esomeprazole 40 mg oral delayed release capsule Start: 04/21/23 7:14:00 AM EST, 1 cap, PO, Daily, Disp# 90 cap, Refills: 1, Pharmacy: [facility] Start Date: 04/21/23 Status: Ordered famotidine 20 mg oral tablet Start: 05/27/22 11:29:00 AM EDT, 2 tab, PO, bid, Disp# 360 tab, Refills: 1, Pharmacy: [facility] Start Date: 05/27/22 Stop Date: 11/23/22 Status: Ordered hydrALAZINE 10 mg oral tablet Start: 08/27/22 8:19:00 AM EDT, 1 tab, PO, bid, Disp# 180 tab, Refills: 3, for BLOOD PRESSURE, Pharmacy: [facility] 2229 Start Date: 08/27/22 Status: Ordered hydrOXYzine hydrochloride 10 mg oral tablet Start: 05/30/23 7:53:00 AM EDT, 1 tab, PO, bid, Disp# 180 tab, Refills: 1, PRN: NEEDED FOR ANXIETY, Pharmacy: [facility] 2229 Start Date: 05/30/23 Status: Ordered levothyroxine 50 mcg (0.05 mg) oral tablet Start: 06/30/21 4:51:00 PM EDT, See Instructions, Disp# 34 tab, Refills: 3, 1 tab PO Daily for 6 days, then 2 po daily on one day of week, Note to Pharmacy: Please cancel rx for 25 mcg once daily, Pharmacy: [facility] 2229 Start Date: 06/30/21 Status: Ordered Lexapro 10 mg oral tablet Start: 06/09/21 5:50:00 PM EDT, 1 tab, PO, Daily, Disp# 30 tab, Refills: 6, Pharmacy: [facility] 2229 Start Date: 06/09/21 Status: Ordered Lidocaine Viscous 2% mucous membrane solution Start: 05/27/22 11:26:00 AM EDT, 5 mL, topical, ac, Disp# 100 mL, Refills: 1, PRN: as needed for mouth sore pain, Pharmacy: [facility] 2229 Start Date: 05/27/22 Stop Date: 07/08/22 Status: Ordered metoprolol succinate 25 mg oral tablet, extended release Start: 05/07/21 10:02:00 AM EST, 1 tab, PO, Daily, Disp# 30 tab, Refills: 5, Pharmacy: [facility] 2229 Start Date: 05/07/21 Status: Ordered ondansetron 4 mg oral tablet See Instructions, Disp# 270 tab, Refills: 0, TAKE 1 TABLET BY MOUTH EVERY 8 HOURS, Pharmacy: [facility] [address]11 Start Date: 07/11/20 Status: Ordered pantoprazole 40 mg oral delayed release tablet Start: 04/21/23 7:14:00 AM EST, See Instructions, Disp# 90 tab, Refills: 1, TAKE 1 TABLET BY MOUTH EVERY DAY, Pharmacy: [facility] 2229 Start Date: 04/21/23 Status: Ordered rOPINIRole 4 mg oral tablet Start: 07/06/23 8:00:00 AM EDT, 1 tab, PO, qhs, Disp# 30 tab, Refills: 5, Pharmacy: [facility] 2229 Start Date: 07/06/23 Status: Ordered simvastatin 40 mg oral tablet Start: 08/30/22 5:20:00 PM EDT, 1 tab, PO, qPM, Disp# 90 tab, Refills: 3, Note to Pharmacy: D/C 20 mgdose, Pharmacy: [facility] 2229 Start Date: 08/30/22 Stop Date: 08/25/23 Status: Ordered sucralfate 1 g oral tablet Start: 05/27/22 11:24:00 AM EDT, 1 tab, PO, ac and hs, Disp# 120 tab, Refills: 1, on an empty stomach, Pharmacy: [facility] 2229 Start Date: 05/27/22 Stop Date: 07/26/22 Status: Ordered valsartan 320 mg oral tablet See Instructions, Disp# 90 tab, Refills: 3, TAKE 1 TABLET BY MOUTH EVERY DAY, Pharmacy: [facility] [id number] Start Date: 05/12/21 Status: Ordered Vitamin D3 50,000 intl units (1250 mcg) oral capsule Start: 06/15/20 9:37:00 AM EDT, 1 cap, PO, q7days, Disp# 8 cap, Pharmacy: [facility]/pharmacy #[id number] Start Date: 06/15/20 Stop Date: 08/10/20 Status: Ordered Voltaren 1% topical gel Start: 05/08/18 8:59:00 AM EDT, 1 appl, topical, qid, Disp# 100 g, Refills: 2, not to exceed 16 grams/day/single joint of lower extremities, PRN: Pain, Pharmacy: [facility]/pharmacy #[id number] Start Date: 05/08/18 Stop Date: 08/06/18 [...] of gastroparesis or rapid gastric emptying 3[facility] Impression: 1. LA Grade D [...] malignancy. 1 year screening is recommended. 9[facility] Impression: 1. No acute cardiopulmonary findings 10[facility] Impression: 1. Therre is no hemorrhage, mass effect, or evidence of acute territorial eschemia by CT criteria 2. Unremarkable CT angiogram of the brain 3. Unremarkable CT angiogram of the neck 11BRAIN MRI WITHOUT CONTRAST IMPRESSION: No significant change compared to the prior study. No acute intracranial abnormality. 12[facility] Video swallow by speech path normal radiology [...] palpable abnormality. 17Cardiomegaly without acute process. 18[facility] Impression: 1. Mild esophageal dysmotility [...] chronic interstitial thickening. No acute findings. 26[facility] Stomach, antrum/body: 1. Mild chronic [...] MR & TR; LA mildly dilated 30[facility] Impression: 1. No acute cardiopulmonary [...] NO FACIAL FRACTURE IDENTIFIED BY RADIOGRAPHY. 34[facility] Impression: 1. No acute fracture or radiopaque foreign body within the left hand 35[facility] Impression: 1. One 5 mm polyp in the descending colon. Resected and retrieved 2. Non bleeding internal hemorrhoids 36tubular adenoma 37[facility] Impression: 1. The spirometry reveals [...] 44left wrist Results Laboratory List Name Date PPD Reading Outpt 07/29/23 Most recent to oldest [Reference Range]: 1 PPD mm of Induration 0 mm (07/29/23 10:27 AM) PPD Interpretation Negative (07/29/23 10:27 AM) Social History Social History Type Response Smoking Status Never smoked cigaret padmini Sex Female Patient Care team information Care Team Personnel Name: GATITO Breaux Tara Position: Nurse Pract - Family Med Member Role: Lifetime Relationship Address: Address: [address] [place] [address] [place] Name: MD Salazar, Cierra Burrows Position: Physician - Family Med Member Role: Primary Care Provider Address: Address: [address] [place] [address] [place] Name: GATITO Dean Shari A Position: Nurse Pract - Family Med Member Role: Lifetime Relationship Address: Address: [address] [facility] [address] [place] [address] [place] Care Team Related Persons Name: OKSANA ROSALES Name: KOLBY ROSALES Address: [address], [id number]
[2023-08-11] MEDS: FAMOTIDINE 20 MG TAB PO SCH (08:18)
[2023-08-11] MEDS: VALSARTAN 80 MG TAB PO SCH (08:21)
[2023-08-11 08:25] LABS: Basophils # (auto) 0.07 K/uL (0.00-0.20); Basophils % (auto) 0.9 %; Eosinophils # (auto) 0.21 K/uL (0.00-0.50); Eosinophils % (auto) 2.8 %; Hematocrit (blood only) 34.4 % (37.0-47.0); Hemoglobin 10.7 g/dl (12.0-16.0); Immature Granulocytes # (auto) 0.02 K/uL (0.01-0.20); Immature Granulocytes % (auto) 0.3 %; Lymphocytes # (auto) 2.31 K/uL (1.20-3.40); Lymphocytes % (auto) 30.7 %; Mean Corpuscular Hemoglobin 25.4 pg (25.0-34.0); Mean Corpuscular Hgb Conc 31.1 g/dL (32.0-36.0); Mean Corpuscular Volume 81.7 fL (80.0-100.0); Mean Platelet Volume 9.3 fL (9.4-12.4); Monocytes # (auto) 0.62 K/uL (0.11-0.59); Monocytes % (auto) 8.2 %; Neutrophils # (auto) 4.29 K/uL (1.40-6.50); Neutrophils % (auto) 57.1 %; Platelet Count 301 K/uL (130-400); RDW Coefficient of Variation 15.2 % (11.5-14.5); RDW Standard Deviation 45.6 fL (36.4-46.3); Red Blood Count 4.21 M/uL (4.20-5.40); White Blood Count 7.52 K/ul (4.8-10.8)
[2023-08-11 08:38] LABS: Albumin Globulin Ratio 1.3 (0.9-2); Albumin Level 3.7 gm/dl (3.4-5.0); BUN Creatinine Ratio 21.2 (10-20); Bilirubin,Total 0.4 mg/dl (0.2-1.0); Calcium 8.8 mg/dl (8.6-10.3); Creatinine Clr Calc Pharmacy 58.2 ml/min; Est GFR (African American) 78.2 ml/min; Est GFR (Non-African American) 67.5 ml/min; Globulin 2.8 gm/dl (2.5-4.0); Potassium 3.9 mmol/L (3.5-5.1); Total Protein 6.5 gm/dl (6.0-8.3)
[2023-08-11] MEDS ORDERED: PANTOprazole 40 MG TAB PO SCH (09:00)
--- NOTE | 2023-08-11 10:46 | Hospitalist Progress Note ---
Date of Service August 11, 2023 Assessment & Plan (1) Pulmonary embolism: Plan: Admit to med/telemetry on pulse oximetry. Currently hemodynamically stable, stable on room air, nontoxic-appearing Presented to the ED today due to approximately 4 days of increased dyspnea on exertion, shortness of breath at rest, left-sided chest/arm pain with exertion. Found to have several segmental and subsegmental pulmonary emboli within the right lower lobe Patient has had 2 high-sensitivity troponin levels within normal limits, no acute ST segment or T wave changes on EKG Suspect her pulmonary emboli are due to running out of CHOBOLABS approximately 4 days ago and multiple long car trips in the past 72 hours on 1 mg/kg SQ Lovenox twice daily, and bridge to warfarin Lovenox at the time of admission and start 10 mg p.o. warfarin this afternoon x 2 doses, can plan to start 5 mg warfarin daily on day 3 depending on INR level Incentive spirometry, as needed O2 to keep SpO2 at or above 92% Will obtain echocardiogram and bilateral venous Dopplers for further assessment As needed Tylenol and morphine for pain Heart healthy diet with 2 g sodium restriction A.m. CBC, BMP, mag, PT/INR (2) Chest pain: Plan: Patient has been experiencing left-sided chest/left arm pain with exertion over the past 4 days Also notes pleuritic chest pain with deep inspiration Cardiac workup in the ER including EKG and 2 high-sensitivity troponin levels have been within normal limits Suspect her chest and left upper extremity discomfort is due to her recently diagnosed pulmonary emboli Continue Lovenox/ warfarin Will continue to monitor on telemetry, will follow echocardiogram ordered on admission (3) HTN (hypertension): Plan: Currently stable Will plan to continue hydralazine, metoprolol, amlodipine, and home Bumex (4) Atrial fibrillation: Plan: EKG today shows rate controlled sinus rhythm with frequent PVCs Starting Lovenox/warfarin bridge today Continue home metoprolol (5) GERD (gastroesophageal reflux disease): Plan: Continue twice daily pantoprazole Plan The patient was discussed with Dr. Dumont at the time of the admission Admission and Anticipated Discharge Date Admission Date: August 10, 2023 Subjective Patient denies any chest pain or shortness of breath Review of Systems Review of Systems: All systems reviewed & are unremarkable except as noted in Subjective Physical Exam Physical Exam: head atraumatic neck supple chest CTA b/l heart S1S2 regular abdomen soft, nt, nd , bs extremities no edema neuro AAO X 3 Results & Data Results & Data Vital Signs (Past 12 Hours) Vital Signs Temp Pulse Pulse Resp BP Pulse Ox O2 Del Method 08/11/23 08:15 111/71 08/11/23 07:54 36.7 C 71 20 95/59 L 92 Room Air 08/11/23 07:13 73 08/11/23 03:44 36.7 C 78 20 110/68 93 Room Air 08/11/23 01:42 Room Air 08/10/23 23:50 37.0 C 75 20 103/62 93 Room Air Laboratory Results Abnormal lab results 08/11/23 Range/Units 07:52 Hgb 10.7 L (12.0-16.0) g/dl Hct 34.4 L (37.0-47.0) % MCHC 31.1 L (32.0-36.0) g/dL RDW Coeff of Ladi 15.2 H (11.5-14.5) % MPV 9.3 L (9.4-12.4) fL [place] # (Auto) 0.62 H (0.11-0.59) K/uL BUN/Creatinine Ratio 21.2 H (10-20) Glucose 107 H (70-99(Fasting)) mg/dl PG Care Time/CCT Total # of Minutes Spent Total Time Spent with Patient: Total time spent is greater than 50% in coordination of care (as documented) at patient's floor/unit and/or counseling patient: Coding Level of Care Code 01254 SUB INP/OBS CARE 2/35MIN Diagnoses Pulmonary embolism I26.99 Acute cor pulmonale presence: unspecified Chronicity: acute Pulmonary embolism type: unspecified Chest pain R07.9 Chest pain type: unspecified HTN (hypertension) I10 Atrial fibrillation I48.91 GERD (gastroesophageal reflux disease) K21.9 (1) Pulmonary embolism Acute cor pulmonale presence: unspecified Chronicity: acute Pulmonary embolism type: unspecified Qualified Code(s): I26.99 - Other pulmonary embolism without acute cor pulmonale (2) Chest pain Chest pain type: unspecified Qualified Code(s): R07.9 - Chest pain, unspecified
--- NOTE | 2023-08-11 12:01 | XCELERA ---
[id number] \\[email or web address]\[id number]
[2023-08-11 14:00] LABS: INR 1.1 (0.9-1.1); Prothrombin Time 12.2 Seconds (9.0-12.0)
[2023-08-11 15:18] LABS: INR 1.1 (0.9-1.1); Prothrombin Time 12.3 Seconds (9.0-12.0)
[2023-08-11] MEDS: hydrOXYzine HCl 10 MG TAB PO PRN (20:53)
[2023-08-12 05:52] LABS: Basophils # (auto) 0.08 K/uL (0.00-0.20); Eosinophils # (auto) 0.27 K/uL (0.00-0.50); Eosinophils % (auto) 3.5 %; Hematocrit (blood only) 34.5 % (37.0-47.0); Hemoglobin 10.9 g/dl (12.0-16.0); Immature Granulocytes # (auto) 0.02 K/uL (0.01-0.20); Immature Granulocytes % (auto) 0.3 %; Lymphocytes # (auto) 2.43 K/uL (1.20-3.40); Lymphocytes % (auto) 31.1 %; Mean Corpuscular Hemoglobin 25.7 pg (25.0-34.0); Mean Corpuscular Hgb Conc 31.6 g/dL (32.0-36.0); Mean Corpuscular Volume 81.4 fL (80.0-100.0); Mean Platelet Volume 9.3 fL (9.4-12.4); Monocytes # (auto) 0.72 K/uL (0.11-0.59); Monocytes % (auto) 9.2 %; Neutrophils % (auto) 54.9 %; Platelet Count 290 K/uL (130-400); RDW Coefficient of Variation 15.2 % (11.5-14.5); Red Blood Count 4.24 M/uL (4.20-5.40); White Blood Count 7.82 K/ul (4.8-10.8)
[2023-08-12 06:04] LABS: Albumin Globulin Ratio 1.3 (0.9-2); Albumin Level 3.8 gm/dl (3.4-5.0); BUN Creatinine Ratio 22.2 (10-20); Bilirubin,Total 0.3 mg/dl (0.2-1.0); Creatinine Clr Calc Pharmacy 61.1 ml/min; Est GFR (African American) 82.9 ml/min; Est GFR (Non-African American) 71.5 ml/min; Magnesium 1.9 mg/dl (1.7-2.4); Potassium 3.7 mmol/L (3.5-5.1); Total Protein 6.8 gm/dl (6.0-8.3)
[2023-08-12] MEDS ORDERED: ACETAMINOPHEN 500 MG TAB PO PRN (06:04)
[2023-08-12 06:21] LABS: INR 1.9 (0.9-1.1); Prothrombin Time 19.4 Seconds (9.0-12.0)
--- NOTE | 2023-08-12 13:39 | Hospitalist Progress Note ---
Date of Service August 12, 2023 Assessment & Plan (1) Pulmonary embolism: Plan: Admit to med/telemetry on pulse oximetry. Currently hemodynamically stable, stable on room air, nontoxic-appearing Presented to the ED today due to approximately 4 days of increased dyspnea on exertion, shortness of breath at rest, left-sided chest/arm pain with exertion. Found to have several segmental and subsegmental pulmonary emboli within the right lower lobe Patient has had 2 high-sensitivity troponin levels within normal limits, no acute ST segment or T wave changes on EKG Suspect her pulmonary emboli are due to running out of [employer] approximately 4 days ago and multiple long car trips in the past 72 hours on 1 mg/kg SQ Lovenox twice daily, and bridge to warfarin Lovenox at the time of admission and start 10 mg p.o. warfarin this afternoon x 2 doses, can plan to start 5 mg warfarin daily on day 3 depending on INR level Incentive spirometry, as needed O2 to keep SpO2 at or above 92% Will obtain echocardiogram and bilateral venous Dopplers for further assessment As needed Tylenol and morphine for pain Heart healthy diet with 2 g sodium restriction INR 1.9 , on Lovenox, coumadin 5 mg today repeat INR in am (2) Chest pain: Plan: Patient has been experiencing left-sided chest/left arm pain with exertion over the past 4 days Also notes pleuritic chest pain with deep inspiration Cardiac workup in the ER including EKG and 2 high-sensitivity troponin levels have been within normal limits Suspect her chest and left upper extremity discomfort is due to her recently diagnosed pulmonary emboli Continue Lovenox/ warfarin Will continue to monitor on telemetry,echocardiogram report noticed (3) HTN (hypertension): Plan: Currently stable Will plan to continue hydralazine, metoprolol, amlodipine, and home Bumex (4) Atrial fibrillation: Plan: EKG today shows rate controlled sinus rhythm with frequent PVCs Starting Lovenox/warfarin bridge today Continue home metoprolol (5) GERD (gastroesophageal reflux disease): Plan: Continue twice daily pantoprazole Plan The patient was discussed with Dr. Dumont at the time of the admission Admission and Anticipated Discharge Date Admission Date: August 10, 2023 Subjective Patient denies any chest pain or shortness of breath Results & Data Results & Data Vital Signs (Past 12 Hours) Vital Signs Temp Pulse Pulse Resp BP BP Pulse Ox 08/12/23 11:39 36.4 C L 65 18 111/72 93 08/12/23 08:18 08/12/23 07:47 69 08/12/23 07:44 36.6 C 71 17 115/71 92 08/12/23 03:51 36.4 C L 65 16 101/63 96 O2 Del Method 08/12/23 11:39 Room Air 08/12/23 08:18 Room Air 08/12/23 07:47 08/12/23 07:44 Room Air 08/12/23 03:51 Room Air PG Care Time/CCT Total # of Minutes Spent Total Time Spent with Patient: Total time spent is greater than 50% in coordination of care (as documented) at patient's floor/unit and/or counseling patient: Coding Level of Care Code 08072 SUB INP/OBS CARE 3/50MIN Diagnoses Pulmonary embolism I26.99 Acute cor pulmonale presence: unspecified Chronicity: acute Pulmonary embolism type: unspecified Chest pain R07.9 Chest pain type: unspecified HTN (hypertension) I10 Atrial fibrillation I48.91 GERD (gastroesophageal reflux disease) K21.9 (1) Pulmonary embolism Acute cor pulmonale presence: unspecified Chronicity: acute Pulmonary embolism type: unspecified Qualified Code(s): I26.99 - Other pulmonary embolism without acute cor pulmonale (2) Chest pain Chest pain type: unspecified Qualified Code(s): R07.9 - Chest pain, unspecified
[2023-08-12] MEDS ORDERED: guaiFENesin SUGAR FREE 200 MG/10 ML UDC PO PRN (14:28)
[2023-08-12] MEDS: WARFARIN SOD 5 MG TAB PO SCH (15:23)
[2023-08-13 07:10] LABS: Basophils % (auto) 1.3 %; Eosinophils # (auto) 0.17 K/uL (0.00-0.50); Eosinophils % (auto) 2.1 %; Hematocrit (blood only) 36.1 % (37.0-47.0); Hemoglobin 11.5 g/dl (12.0-16.0); Immature Granulocytes # (auto) 0.03 K/uL (0.01-0.20); Immature Granulocytes % (auto) 0.4 %; Lymphocytes # (auto) 2.14 K/uL (1.20-3.40); Lymphocytes % (auto) 26.9 %; Mean Corpuscular Hemoglobin 25.5 pg (25.0-34.0); Mean Corpuscular Hgb Conc 31.9 g/dL (32.0-36.0); Mean Platelet Volume 9.2 fL (9.4-12.4); Monocytes # (auto) 0.63 K/uL (0.11-0.59); Monocytes % (auto) 7.9 %; Neutrophils # (auto) 4.89 K/uL (1.40-6.50); Neutrophils % (auto) 61.4 %; Platelet Count 298 K/uL (130-400); RDW Coefficient of Variation 14.9 % (11.5-14.5); RDW Standard Deviation 43.2 fL (36.4-46.3); Red Blood Count 4.51 M/uL (4.20-5.40); White Blood Count 7.96 K/ul (4.8-10.8)
[2023-08-13 07:34] LABS: INR 3.7 (0.9-1.1); Prothrombin Time 36.2 Seconds (9.0-12.0)
[2023-08-13 07:38] LABS: Albumin Globulin Ratio 1.2 (0.9-2); Albumin Level 3.8 gm/dl (3.4-5.0); BUN Creatinine Ratio 18.6 (10-20); Bilirubin,Total 0.3 mg/dl (0.2-1.0); Creatinine Clr Calc Pharmacy 71.2 ml/min; Est GFR (African American) 98.9 ml/min; Est GFR (Non-African American) 85.4 ml/min; Globulin 3.1 gm/dl (2.5-4.0); Magnesium 1.9 mg/dl (1.7-2.4); Potassium 3.8 mmol/L (3.5-5.1); Total Protein 6.9 gm/dl (6.0-8.3)
--- NOTE | 2023-08-13 13:15 | Hospitalist Progress Note ---
Date of Service August 13, 2023 Assessment & Plan (1) Pulmonary embolism: Plan: Admit to med/telemetry on pulse oximetry. Currently hemodynamically stable, stable on room air, nontoxic-appearing Presented to the ED today due to approximately 4 days of increased dyspnea on exertion, shortness of breath at rest, left-sided chest/arm pain with exertion. Found to have several segmental and subsegmental pulmonary emboli within the right lower lobe Patient has had 2 high-sensitivity troponin levels within normal limits, no acute ST segment or T wave changes on EKG Suspect her pulmonary emboli are due to running out of [employer] approximately 4 days ago and multiple long car trips in the past 72 hours on 1 mg/kg SQ Lovenox twice daily, and bridge to warfarin Lovenox at the time of admission and start 10 mg p.o. warfarin this afternoon x 2 doses, can plan to start 5 mg warfarin daily on day 3 depending on INR level Incentive spirometry, as needed O2 to keep SpO2 at or above 92% Will obtain echocardiogram and bilateral venous Dopplers for further assessment As needed Tylenol and morphine for pain Heart healthy diet with 2 g sodium restriction INR 1.9 , on Lovenox, coumadin 5 mg today 08/12 INR 3.5 , stop Lovenox, Coumadin 3 mg, repeat INR in am (2) Chest pain: Plan: Patient has been experiencing left-sided chest/left arm pain with exertion over the past 4 days Also notes pleuritic chest pain with deep inspiration Cardiac workup in the ER including EKG and 2 high-sensitivity troponin levels have been within normal limits Suspect her chest and left upper extremity discomfort is due to her recently diagnosed pulmonary emboli Continue Lovenox/ warfarin Will continue to monitor on telemetry,echocardiogram report noticed stress test as outpatient (3) HTN (hypertension): Plan: Currently stable Will plan to continue hydralazine, metoprolol, amlodipine, and home Bumex (4) Atrial fibrillation: Plan: EKG today shows rate controlled sinus rhythm with frequent PVCs Continue home metoprolol - on Coumadin , INR 3.5 (5) GERD (gastroesophageal reflux disease): Plan: Continue twice daily pantoprazole Plan The patient was discussed with Dr. Dumont at the time of the admission Admission and Anticipated Discharge Date Admission Date: August 10, 2023 Subjective Patient reports intermittent chest pain Review of Systems Review of Systems: All systems reviewed & are unremarkable except as noted in Subjective Physical Exam Physical Exam: head atraumatic neck supple chest CTA b/l heart S1S2 regular abdomen soft, nt, nd , bs extremities no edema neuro AAO X 3 Results & Data Results & Data Vital Signs (Past 12 Hours) Vital Signs Temp Pulse Pulse Resp BP Pulse Ox O2 Del Method 08/13/23 12:30 36.4 C L 82 18 144/71 H 96 Room Air 08/13/23 10:54 Room Air 08/13/23 07:58 36.7 C 69 18 130/79 92 Room Air 08/13/23 07:09 66 08/13/23 03:37 36.6 C 70 18 114/72 95 Room Air PG Care Time/CCT Total # of Minutes Spent Total Time Spent with Patient: Total time spent is greater than 50% in coordination of care (as documented) at patient's floor/unit and/or counseling patient: Coding Level of Care Code 16178 SUB INP/OBS CARE 2/35MIN Diagnoses Pulmonary embolism I26.99 Acute cor pulmonale presence: unspecified Chronicity: acute Pulmonary embolism type: unspecified Chest pain R07.9 Chest pain type: unspecified HTN (hypertension) I10 Atrial fibrillation I48.91 GERD (gastroesophageal reflux disease) K21.9 (1) Pulmonary embolism Acute cor pulmonale presence: unspecified Chronicity: acute Pulmonary embolism type: unspecified Qualified Code(s): I26.99 - Other pulmonary embolism without acute cor pulmonale (2) Chest pain Chest pain type: unspecified Qualified Code(s): R07.9 - Chest pain, unspecified
[2023-08-13] MEDS: WARFARIN SOD 3 MG TAB PO SCH (15:44)
[2023-08-14 08:02] LABS: INR 3.6 (0.9-1.1); Prothrombin Time 34.7 Seconds (9.0-12.0)
--- NOTE | 2023-08-14 11:09 | Discharge Summary ---
Date of Service August 14, 2023 Admission HPI Per Admitting Provider Brook is a 72-year-old female with a past medical history significant for previous PE/A-fib on Eliquis, hypertension, GERD, anxiety, and hyperlipidemia who presented to the [facility] ER on 08/10/2023 with a chief complaint of approximately 2 to 3 days of chest pain with associated left arm pain and shortness of breath. Vitals remained stable in the ER. Labs were significant for a D-dimer of 1320, high-sensitivity troponin within normal limits, and full respiratory bio fire negative. Chest x-ray was read as cardiomegaly with chronic interstitial coarsening. CTA of the chest with PE protocol was read as several segmental and sub-segmental pulmonary emboli with right lower lobe. The ED staff spoke with the on-call anticoagulation specialist who recommended starting Lovenox at 1 mg/kg twice daily and transitioning to Coumadin. Prior to admission the patient was ordered her initial dose of SQ Lovenox. Patient was sitting in bed in no acute distress at time of exam with her bedside, she had just returned from walking to and from the bathroom and did note increased dyspnea on exertion/shortness of breath. She states that approximately 4 days ago she started to develop increased lower extremity swelling, left-sided chest/left arm pain exacerbated with exertion, shortness of breath even at rest, and nonproductive cough starting yesterday. She ran out of her home Eliquis 4 days ago as well due to cost and unfortunately her requiring recent pacemaker placement and being started on multiple new medications which are expensive as well. When asked, she denies reducing her recent dose of Eliquis to try make it last longer, she was taking it as prescribed until it ran out 4 days ago. When asked, they state that they recently had grandchildren born at [facility] approximately 4 days ago and have been driving 2 hours there and back on Tuesday and Tuesday of this past week. She denies having to hold her Eliquis in the recent past for any procedures. Denies recent alcohol or tobacco use. The patient denies recent fever, chills, new paresthesias/unilateral weakness, changes in vision, hearing, taste, smell, hemoptysis, abdominal pain, nausea, vomiting, diarrhea, dysuria, hematuria, melena, bloody BM's, recent trauma. We discussed CODE STATUS, she wishes to be full code. Please refer to Dr. Dumont attestation for any changes to the treatment plan. Principal Diagnosis PE Discharge Exam head atraumatic neck supple chest CTA b/l heart S1S2 regular abdomen soft, nt, nd , bs extremities no edema neuro AAO X 3 Discharge Data Allergies Allergy/AdvReac Type Severity Reaction Status Date / Time nitroglycerin Allergy Severe pruritis, Verified 08/10/23 12:38 headache, vomiting with patch (see comments) latex Allergy Mild rash Verified 08/10/23 12:38 potassium chloride AdvReac Mild "did not Verified 08/10/23 12:38 tolerate" IV potassium Consultations 08/10/23 12:20 ED Decision to Admit Stat Ordered Studies 08/10/23 10:16 CT angio chest PE protocol Stat 08/10/23 12:07 US venous doppler [facility] Urgent Hospital Course (1) Pulmonary embolism: Admit to med/telemetry on pulse oximetry. Currently hemodynamically stable, stable on room air, nontoxic-appearing Presented to the ED today due to approximately 4 days of increased dyspnea on exertion, shortness of breath at rest, left-sided chest/arm pain with exertion. Found to have several segmental and subsegmental pulmonary emboli within the right lower lobe Patient has had 2 high-sensitivity troponin levels within normal limits, no acute ST segment or T wave changes on EKG Suspect her pulmonary emboli are due to running out of [employer] approximately 4 days ago and multiple long car trips in the past 72 hours on 1 mg/kg SQ Lovenox twice daily, and bridge to warfarin Lovenox at the time of admission and start 10 mg p.o. warfarin this afternoon x 2 doses, can plan to start 5 mg warfarin daily on day 3 depending on INR level Incentive spirometry, as needed O2 to keep SpO2 at or above 92% Will obtain echocardiogram and bilateral venous Dopplers for further assessment As needed Tylenol and morphine for pain Heart healthy diet with 2 g sodium restriction INR 1.9 , on Lovenox, coumadin 5 mg today 08/12 INR 3.7, stop Lovenox, Coumadin 3 mg, repeat INR in am 08/13 INR 3.6 , continue Coumadin 3 mg , INR in AM discharge home (2) Atrial fibrillation: EKG today shows rate controlled sinus rhythm with frequent PVCs Continue home metoprolol - on Coumadin , INR 3.5 Plan The patient was discussed with Dr. Dumont at the time of the admission Total Time Total Time Spent Total Time Spent (In Minutes): 45 minutes Discharge Plan Discharge Items Patient Disposition: Home - Self-Care Reason For Visit: NEW PE'S Discharge Diagnosis: PE Activity: Resume your previous activity Non-emergency contact: Primary Care Provider Call non-emergency contact if: your symptoms worsen Follow-up/Referrals: Cierra Lincoln MD [Primary Care Provider] - (PLEASE CALL YOUR PRIMARY CARE PROVIDER TO SCHEDULE A HOSPITAL DISCHARGE FOLLOW-UP APPOINTMENT WITHIN 7-10 DAYS) Diet: Heart Healthy Ambulatory Orders: Prothrombin Time INR (Timed) Timeframe: 1 Day Location: Determined by Patient Ordered By: Nancy Boone Attending Provider Instructions: please check INR tomorrow Pending Studies at Discharge: No Studies:: inr tomorrow Stand-Alone Forms: [employer], Work/School Release, Smoking Cessation Medications and DC Order Prescriptions: New warfarin 3 mg Tablet 3 mg PO DAILY@1600 Qty: 30 0RF Continued gabapentin 100 mg capsule 200 mg PO TID 30 Days Qty: 180 5RF Patient Comments: PT ONLY TAKING 100MG TID ondansetron HCl 4 mg tablet 4 mg PO TID PRN (Reason: Nausea) pantoprazole 40 mg tablet,delayed release (DR/EC) 40 mg PO BID simvastatin 20 mg tablet 20 mg PO HS amlodipine 10 mg tablet 10 mg PO QPM famotidine 20 mg tablet 20 mg PO QAM ropinirole 4 mg tablet 4 mg PO HS Rx Instructions: FILLED 08/11/22 esomeprazole magnesium 40 mg capsule,delayed release(DR/EC) 40 mg PO QAM valsartan 320 mg Tablet 320 mg PO QAM hydroxyzine HCl 10 mg tablet 10 mg PO BID PRN (Reason: Anxiety) Discontinued Eliquis 5 mg tablet 5 mg PO QAM Discharge Orders: Discharge Order (Routine); Ordered 08/14/23 Ordered By: Nancy Hercules/Other Patient Handouts: Warfarin Oral Tablet Admission Data Admit Date/Time: 08/10/23 11:47 Attending Provider: Nancy Soto Admit Provider: Timi Dumont Primary Care Provider: Cierra Lincoln Other Providers: Julia,Timi M. Other Interventions: Discharge Summary Assessment (RN) Last Done: 08/14/23 11:26 Coding Level of Care Code 04354 INP/OBS DISCH >30 MIN Diagnoses Pulmonary embolism I26.99 Acute cor pulmonale presence: unspecified Chronicity: acute Pulmonary embolism type: unspecified Atrial fibrillation I48.91
== END 2023-08-14 11:55 | disposition home or self-care (01) | DRG 176 ==
LOC: ED 08:34 → INTOOBSV 11:47 → SUATTDRO 11:47 → EDINP 11:47 → 2N 15:34

== ENCOUNTER 2023-11-04 09:06 | Inpatient (IN) ==
--- NOTE | 2023-11-04 10:00 | Pre Anesthesia Assessment ---
Date of Service November 04, 2023 Pre Sedation Assessment Vital Signs Pulse Resp BP Pulse Ox O2 Del Method 11/04/23 09:21 73 18 119/75 96 Room Air Cardiovascular RRR, no murmur, no edema Respiratory normal respiratory effort, lungs clear to auscultation Pre-Sedation Airway Assessment Smoking Status: Never smoker Short, Thick Neck: Yes Thyromental Distance: < 3.5 Finger Breadths Oral Cavity: + Dentures Mallampati Class: III ASA: ASA3 NPO Status Date of Last Intake of Fluids: 11/03/23 Time of Last Intake of Fluids: : Date of Last Intake of Solid Food: 11/03/23 Time of Last Intake of Solid Foods: : Notes The planned sedation has been discussed with the patient. Informed Consent was obtained. I have identified the patient, determined the appropriateness of sedation and have assessed the patient immediately prior to the procedure. All medicine(s) and interventions are by my order.
--- NOTE | 2023-11-04 10:02 | History & Physical Bridge Note ---
Date of Service November 04, 2023 History & Physical Bridge Note I have examined the patient, reviewed the History & Physical and in the interval since the performance of the History & Physical I have noted the following changes of clinical significance: no changes noted Persistent worsening ROMANO treatment for PE/DVT ongoing with coumadin. Dr Vela requests [facility], C, cors.
[2023-11-04] MEDS: niCARdipine HCL INJ 2.5 MG/ML 10 ML AMP ONE (10:39)
[2023-11-04] MEDS: NITROGLYCERIN/D5W 100MCG/ML 20ML SYR ONE (10:40)
--- OUTSIDE RECORDS SUMMARY | 2023-11-04 10:45 | External Medical Summary | Continuity of Care Document ---
Author Name Unknown Organization [facility] [address] Address [address] [place], [place] [id number] Care Team Providers Care Solar Sales Advisor Name Role Phone Cierra Lincoln Primary Care Physician [phone] [id number] Date(s): 10/28/23 - 10/28/23 [facility] [address] 1 [facility], [facility] 1 [place], [place] [phone] Encounter Diagnosis Gastro-esophageal reflux disease with esophagitis, without bleeding(Final) - Ulcer of esophagus without bleeding(Final) - Discharge Disposition: Home or Self Care Attending Physician: MD Sidhu Brian D Referring Physician: MD Sidhu Brian D Allergies, Adverse Reactions, Alerts Substance Criticality Severity [...] Status Refusal Reason SARS-CoV-2 (COVID-19) mRNA-vacc - [id number] 12/15/22 Recorded zoster vaccine, inactivated 11/13/22 Recorded SARS-CoV-2 mRNA (Pfizer 12+) bivalent 12/11/21 Rec orded SARS-CoV-2 (COVID-19) mRNA BNT-162b2 vax 1 01/10/21 Recorded SARS-CoV-2 (COVID-19) mRNA BNT-162b2 vax 2 05/17/20 Recorded SARS-CoV-2 (COVID-19) mRNA BNT-162b2 vax 3 2/27/21 Recorded influenza virus vaccine, inactivated 12/11/19 Give n influenza virus vaccine, inactivated 01/12/19 Give n influenza virus vaccine, inactivated 11/29/16 Give n influenza virus vaccine, inactivated 11/18/15 Give n 1Result Comment: 2022-01-20: Historical information-source unspecified 2Result Comment: 2020-12-08: Historical information-source unspecified 3Result Comment: 2020-12-08: Historical information-source unspecified Medications amLODIPine 10 mg oral tablet Start: 09/21/23 12:11:00 PM EDT, 1 tab, PO, Daily, Disp# 90 tab, Refills: 3, Pharmacy: [facility] Start Date: 09/21/23 Status: Ordered BD 1 mL Allergy Syringe 28G x 1/2" Start: 06/25/19 2:27:00 PM EDT, See Instructions, Disp# 1 kit, Refills: 5, to be used to adminster Vitamin B12 injection, Pharmacy: [facility] Start Date: 06/25/19 Status: Ordered BD TB SYRINGE 27GX1/2" BD TB SYRINGE 27GX1/2", See Instructions, Disp# 1 syringe, Refills: 5, TO BE USED TO ADMINSTER VITAMIN B12 INJECTION, Pharmacy [id number] Start Date: 07/11/20 Status: Ordered BD TB SYRINGE 27GX1/2" Start: 10/15/21 8:14:00 PM EDT, BD TB SYRINGE 27GX1/2", See Instructions, Disp# 1 unknown unit, Refills: 5, TO BE USED TO ADMINSTER VITAMIN B12 INJECTION, Pharmacy [id number] Start Date: 10/15/21 Status: Ordered BD TB SYRINGE 27GX1/2" Start: 06/25/19 2:27:00 PM EDT, See Instructions, Disp# 1, Refills: 5, TO BE USED TO ADMINSTER VITAMIN B12 INJECTION, Pharmacy: [facility]/pharmacy #[id number], TO BE USED TO ADMINSTER VITAMIN B12 INJECTION Start Date: 06/25/19 Status: Ordered cyanocobalamin 1000 mcg/mL injectable solution Start: 10/15/21 8:14:00 PM EDT, See Instructions, Disp# 3 mL, Refills: 5, INJECT 1,000MCG EVERY MONTH, Pharmacy: [id number] Start Date: 10/15/21 Status: Ordered esomeprazole 40 mg oral delayed release capsule Start: 04/21/23 7:14:00 AM EST, 1 cap, PO, Daily, Disp# 90 cap, Refills: 1, Pharmacy: [facility] 2229 Start Date: 04/21/23 Status: Ordered famotidine 20 mg oral tablet Start: 05/27/22 11:29:00 AM EDT, 2 tab, PO, bid, Disp# 360 tab, Refills: 1, Pharmacy: [facility] 2229 Start Date: 05/27/22 Stop Date: 11/23/22 Status: Ordered FLUoxetine 10 mg oral capsule Start: 10/07/23 9:41:00 AM EDT, 1 cap, PO, Daily, Disp# 30 cap, Refills: 6, Pharmacy: [facility] 2229 Start Date: 10/07/23 Status: Ordered hydrALAZINE 10 mg oral tablet Start: 08/27/22 8:19:00 AM EDT, 1 tab, PO, bid, Disp# 180 tab, Refills: 3, for BLOOD PRESSURE, Pharmacy: [facility] 2229 Start Date: 08/27/22 Status: Ordered hydrOXYzine hydrochloride 10 mg oral tablet Start: 05/30/23 7:53:00 AM EDT, 1 tab, PO, bid, Disp# 180 tab, Refills: 1, PRN: NEEDED FOR ANXIETY, Pharmacy: [facility] 2229 Start Date: 05/30/23 Status: Ordered levothyroxine 50 mcg (0.05 mg) oral tablet Start: 06/30/21 4:51:00 PM EDT, See Instructions, Disp# 34 tab, Refills: 3, 1 tab PO Daily for 6 days, then 2 po daily on one day of week, Note to Pharmacy: Please cancel rx for 25 mcg once daily, Pharmacy: [facility] 2229 Start Date: 06/30/21 Status: Ordered Lidocaine Viscous 2% mucous membrane solution Start: 05/27/22 11:26:00 AM EDT, 5 mL, topical, ac, Disp# 100 mL, Refills: 1, PRN: as needed for mouth sore pain, Pharmacy: [facility] 2229 Start Date: 05/27/22 Stop Date: 07/08/22 Status: Ordered Lovenox 100 mg/mL injectable solution Start: 10/25/23 1:24:00 PM EDT, 0.9 mL, subQ, q12h, Disp# 10 pen_needle, Refills: 1, bridging for cardiac cath pre and post-date to be determined, Note to Pharmacy: q 12 hours as directed for procedure, Stop: 11/25/23 1:29:00 PM EDT, Pharmacy: [facility] 2229, Earliest Fill Date: 10/26/23 Start Date: 10/25/23 Stop Date: 11/25/23 Status: Ordered ondansetron 4 mg oral tablet See Instructions, Disp# 270 tab, Refills: 0, TAKE 1 TABLET BY MOUTH EVERY 8 HOURS, Pharmacy: [facility] Start Date: 07/11/20 Status: Ordered pantoprazole 40 mg oral delayed release tablet Start: 09/23/23 7:25:00 AM EDT, See Instructions, Disp# 90 tab, Refills: 0, TAKE 1 TABLET BY MOUTH EVERY DAY, Note to Pharmacy: Pt will need an appt for further refills., Pharmacy: [facility] Start Date: 09/23/23 Status: Ordered rOPINIRole 4 mg oral tablet Start: 07/06/23 8:00:00 AM EDT, 1 tab, PO, qhs, Disp# 30 tab, Refills: 5, Pharmacy: [facility] Start Date: 07/06/23 Status: Ordered simvastatin 40 mg oral tablet Start: 08/30/22 5:20:00 PM EDT, 1 tab, PO, qPM, Disp# 90 tab, Refills: 3, Note to Pharmacy: D/C 20 mgdose, Pharmacy: [facility] Start Date: 08/30/22 Stop Date: 08/25/23 Status: Ordered sucralfate 1 g oral tablet Start: 05/27/22 11:24:00 AM EDT, 1 tab, PO, ac and hs, Disp# 120 tab, Refills: 1, on an empty stomach, Pharmacy: [facility] Start Date: 05/27/22 Stop Date: 07/26/22 Status: Ordered valsartan 320 mg oral tablet See Instructions, Disp# 90 tab, Refills: 3, TAKE 1 TABLET BY MOUTH EVERY DAY, Pharmacy: [facility] Start Date: 05/12/21 Status: Ordered Vitamin D3 50,000 intl units (1250 mcg) oral capsule Start: 06/15/20 9:37:00 AM EDT, 1 cap, PO, q7days, Disp# 8 cap, Pharmacy: [facility]/pharmacy #[id number] Start Date: 06/15/20 Stop Date: 08/10/20 Status: Ordered Voltaren 1% topical gel Start: 05/08/18 8:59:00 AM EDT, 1 appl, topical, qid, Disp# 100 g, Refills: 2, not to exceed 16 grams/day/single joint of lower extremities, PRN: Pain, Pharmacy: [facility]/pharmacy #[id number] Start Date: 05/08/18 Stop Date: 08/06/18 Status: Ordered Voquezna 20 mg oral tablet Start: 10/12/23 2:57:00 PM EDT, 1 tab, PO, Daily, Disp# 30 tab, Refills: 1, do not crush or chew, for 2 months and then back down to 10 mg, Pharmacy: [facility] Start Date: 10/12/23 Status: Ordered warfarin 3 mg oral tablet Start: 09/14/23 5:38:00 PM EDT, 2 tab, PO, Daily, Disp# 90 tab, Refills: 2, Pharmacy: [facility] Start Date: 09/14/23 Status: Ordered Problem List Condition Confirmation Course Effective Dates Status H ealth Status Informant Adjustment disorder with depressed mood Confirmed Active Ankle edema Confirmed Active Anxiety Confirmed Active Aortic heart murmur Confirmed Active Generalized weakness Confirmed Active Benzodiazepine (tranquilizer) overdose Confirmed Active Pes anserine bursitis Confirmed Active Chronic cough Confirmed Active Urinary and fecal incontinence Confirmed Active Urinary and fecal incontinence Confirmed Active Dysphagia Confirmed Active Edema Confirmed Active Endometrial thickening on ultrasound Confirmed Active Erosive esophagitis Confirmed Active Benign essential tremor Confirmed Active [...] complication Confirmed Active Anxious depression Confirmed Active Nonadherence to medication Confirmed Active Panic disorder Confirmed Active Annual physical exam Confirmed Active Encounter for PPD test Confirmed Active Poor balance Confirmed Active Meniscus tear Confirmed Active Chest [...] pleted Colonoscopy 42 02/28/09 Completed Cystectomy hand 2006 Completed Eyelid lift 43 2006 Completed Cardiac catheterization 2003 C ompleted Sling [...] of gastroparesis or rapid gastric emptying 3[facility] Impression: 1. LA Grade D reflux [...] malignancy. 1 year screening is recommended. 9[facility] Impression: 1. No acute cardiopulmonary findings 10[facility] Impression: 1. Therre is no hemorrhage, mass effect, or evidence of acute territorial eschemia by CT criteria 2. Unremarkable CT angiogram of the brain 3. Unremarkable CT angiogram of the neck 11BRAIN MRI WITHOUT CONTRAST IMPRESSION: No significant change compared to the prior study. No acute intracranial abnormality. 12[facility] Video swallow by speech path normal [...] palpable abnormality. 17Cardiomegaly without acute process. 18[facility] Impression: 1. Mild esophageal dysmotility 2. [...] chronic interstitial thickening. No acute findings. 26[facility] Stomach, antrum/body: 1. Mild chronic gastritis [...] MR & TR; LA mildly dilated 30[facility] Impression: 1. No acute cardiopulmonary findings [...] NO FACIAL FRACTURE IDENTIFIED BY RADIOGRAPHY. 34[facility] Impression: 1. No acute fracture or radiopaque foreign body within the left hand 35[facility] Impression: 1. One 5 mm polyp in the descending colon. Resected and retrieved 2. Non bleeding internal hemorrhoids 36tubular adenoma 37[facility] Impression: 1. The spirometry reveals mild [...] 44left wrist Results Laboratory List Name Date Magnesium Level (MAGNESIUM) 10/28/23 Vitamin B12 Level (VITAMIN B12) 10/28/23 Most recent to oldest [Reference Range]: 1 B12 [211-946 pg/mL] 345 pg/mL (10/28/23 11:27 AM) Mg [1.6-2.3 mg/dL] 1.8 mg/dL 1 (10/28/23 11:27 AM) 1Result Comment: Testing Performed By: [facility] [address] [place] [id number] Social History Social History Type Response Smoking Status Never smoked cigaret padmini Sex Female Sex Representation Female (finding) Patient Care team information Care Team Personnel Name: GATITO Breaux Tara Position: Nurse Pract - Family Med Member Role: Lifetime Relationship Address: [address] [place] [address] [place] Name: MD Lincoln Amy L Position: Physician - Family Med Member Role: Primary Care Provider Address: [address] [place] [address] [place] Name: GATITO Dean Shari A Position: Nurse Pract - Family Med Member Role: Lifetime Relationship Address: [address] [place] [address] [place] Care Team Related Persons Name: OKSANA ROSALES Name: KOLBY ROSALES
--- OUTSIDE RECORDS SUMMARY | 2023-11-04 10:45 | External Medical Summary | Continuity of Care Document ---
Author Name Unknown Organization [facility] [address] Address [address] [place], [place] [address] Care Team Providers Care Vice President Quality Improvement Name Role Phone Cierra Lincoln Stormy Primary Care Physician [phone] [id number] Date[facility]s): 10/28/23 - 10/28/23 [facility] [address] 1 [facility] [address] [facility], [facility] 1 [place], [place] [phone] Encounter Diagnosis Shortness of breath(Final) - Nonrheumatic aortic (valve) stenosis(Final) - Pulmonary hypertension, unspecified(Final) - Discharge Disposition: Home or Self Care Attending Physician: DO Vela Michelle L Referring Physician: DO Vela Michelle L Allergies, Adverse Reactions, Alerts Substance Criticality [...] Status Refusal Reason SARS-CoV-2 (COVID-19) mRNA-vacc - [id number] 12/15/22 Recorded zoster vaccine, inactivated 11/13/22 Recorded [...] Daily, Disp# 90 tab, Refills: 3, Pharmacy: [facility] Start Date: 09/21/23 Status: Ordered BD 1 mL Allergy Syringe 28G x 1/2" Start: 06/25/19 2:27:00 PM EDT, See Instructions, Disp# 1 kit, Refills: 5, to be used to adminster Vitamin B12 injection, Pharmacy: [facility] Start Date: 06/25/19 Status: Ordered BD TB SYRINGE 27GX1/2" BD TB SYRINGE 27GX1/2", See Instructions, Disp# 1 syringe, Refills: 5, TO BE USED TO ADMINSTER VITAMIN B12 INJECTION, [id number] Start Date: 07/11/20 Status: Ordered BD TB SYRINGE 27GX1/2" Start: 10/15/21 8:14:00 PM EDT, BD TB SYRINGE 27GX1/2", See Instructions, Disp# 1 unknown unit, Refills: 5, TO BE USED TO ADMINSTER VITAMIN B12 INJECTION, [id number] Start Date: 10/15/21 Status: Ordered BD TB SYRINGE 27GX1/2" Start: 06/25/19 2:27:00 PM EDT, See Instructions, Disp# 1, Refills: 5, TO BE USED TO ADMINSTER VITAMIN B12 INJECTION, Pharmacy: [facility]/pharmacy #[id number], TO BE USED TO ADMINSTER VITAMIN B12 INJECTION Start Date: 06/25/19 Status: Ordered cyanocobalamin 1000 mcg/mL injectable solution Start: 10/15/21 8:14:00 PM EDT, See Instructions, Disp# 3 mL, Refills: 5, INJECT 1,000MCG EVERY MONTH, Pharmacy: [facility] Start Date: 10/15/21 Status: Ordered esomeprazole 40 mg oral delayed release capsule Start: 04/21/23 7:14:00 AM EST, 1 cap, PO, Daily, Disp# 90 cap, Refills: 1, Pharmacy: [facility]229 Start Date: 04/21/23 Status: Ordered famotidine 20 mg oral tablet Start: 05/27/22 11:29:00 AM EDT, 2 tab, PO, bid, Disp# 360 tab, Refills: 1, Pharmacy: [facility] Start Date: 05/27/22 Stop Date: 11/23/22 Status: Ordered FLUoxetine 10 mg oral capsule Start: 10/07/23 9:41:00 AM EDT, 1 cap, PO, Daily, Disp# 30 cap, Refills: 6, Pharmacy: [facility] Start Date: 10/07/23 Status: Ordered hydrALAZINE 10 mg oral tablet Start: 08/27/22 8:19:00 AM EDT, 1 tab, PO, bid, Disp# 180 tab, Refills: 3, for BLOOD PRESSURE, Pharmacy: [facility] Start Date: 08/27/22 Status: Ordered hydrOXYzine hydrochloride 10 mg oral tablet Start: 05/30/23 7:53:00 AM EDT, 1 tab, PO, bid, Disp# 180 tab, Refills: 1, PRN: NEEDED FOR ANXIETY, Pharmacy: [facility] Start Date: 05/30/23 Status: Ordered levothyroxine 50 mcg (0.05 mg) oral tablet Start: 06/30/21 4:51:00 PM EDT, See Instructions, Disp# 34 tab, Refills: 3, 1 tab PO Daily for 6 days, then 2 po daily on one day of week, Note to Pharmacy: Please cancel rx for 25 mcg once daily, Pharmacy: [facility] Start Date: 06/30/21 Status: Ordered Lidocaine Viscous 2% mucous membrane solution Start: 05/27/22 11:26:00 AM EDT, 5 mL, topical, ac, Disp# 100 mL, Refills: 1, PRN: as needed for mouth sore pain, Pharmacy: [facility] Start Date: 05/27/22 Stop Date: 07/08/22 Status: Ordered Lovenox 100 mg/mL injectable solution Start: 10/25/23 1:24:00 PM EDT, 0.9 mL, subQ, q12h, Disp# 10 pen_needle, Refills: 1, bridging for cardiac cath pre and post-date to be determined, Note to Pharmacy: q 12 hours as directed for procedure, Stop: 11/25/23 1:29:00 PM EDT, Pharmacy: [facility], Earliest Fill Date: 10/26/23 Start Date: 10/25/23 Stop Date: 11/25/23 Status: Ordered ondansetron 4 mg oral tablet See Instructions, Disp# 270 tab, Refills: 0, TAKE 1 TABLET BY MOUTH EVERY 8 HOURS, Pharmacy: [id number] Start Date: 07/11/20 Status: Ordered pantoprazole 40 mg oral delayed release tablet Start: 09/23/23 7:25:00 AM EDT, See Instructions, Disp# 90 tab, Refills: 0, TAKE 1 TABLET BY MOUTH EVERY DAY, Note to Pharmacy: Pt will need an appt for further refills., Pharmacy: [facility] Start Date: 09/23/23 Status: Ordered rOPINIRole 4 mg oral tablet Start: 07/06/23 8:00:00 AM EDT, 1 tab, PO, qhs, Disp# 30 tab, Refills: 5, Pharmacy: [facility] Start Date: 07/06/23 Status: Ordered simvastatin 40 mg oral tablet Start: 08/30/22 5:20:00 PM EDT, 1 tab, PO, qPM, Disp# 90 tab, Refills: 3, Note to Pharmacy: D/C 20 mgdose, Pharmacy: [facility] Start Date: 08/30/22 Stop Date: 08/25/23 Status: Ordered sucralfate 1 g oral tablet Start: 05/27/22 11:24:00 AM EDT, 1 tab, PO, ac and hs, Disp# 120 tab, Refills: 1, on an empty stomach, Pharmacy: [facility] Start Date: 05/27/22 Stop Date: 07/26/22 Status: Ordered valsartan 320 mg oral tablet See Instructions, Disp# 90 tab, Refills: 3, TAKE 1 TABLET BY MOUTH EVERY DAY, Pharmacy: [facility] Start Date: 05/12/21 Status: Ordered Vitamin D3 50,000 intl units (1250 mcg) oral capsule Start: 06/15/20 9:37:00 AM EDT, 1 cap, PO, q7days, Disp# 8 cap, [id number] Start Date: 06/15/20 Stop Date: 08/10/20 Status: Ordered Voltaren 1% topical gel Start: 05/08/18 8:59:00 AM EDT, 1 appl, topical, qid, Disp# 100 g, Refills: 2, not to exceed 16 grams/day/single joint of lower extremities, PRN: Pain, Pharmacy: [id number] Start Date: 05/08/18 Stop Date: 08/06/18 Status: Ordered Voquezna 20 mg oral tablet Start: 10/12/23 2:57:00 PM EDT, 1 tab, PO, Daily, Disp# 30 tab, Refills: 1, do not crush or chew, for 2 months and then back down to 10 mg, Pharmacy: [facility] Start Date: 10/12/23 Status: Ordered warfarin 3 mg oral tablet Start: 09/14/23 5:38:00 PM EDT, 2 tab, PO, Daily, Disp# 90 tab, Refills: 2, Pharmacy: [facility] Start Date: 09/14/23 Status: Ordered [...] Cystectomy hand 2006 Completed Eyelid lift 43 2005 Completed Cardiac [...] of gastroparesis or rapid gastric emptying 3[facility] Impression: 1. LA Grade D [...] malignancy. 1 year screening is recommended. 9[facility] Impression: 1. No acute cardiopulmonary findings 10[facility] Impression: 1. Therre is no hemorrhage, mass effect, or evidence of acute territorial eschemia by CT criteria 2. Unremarkable CT angiogram of the brain 3. Unremarkable CT angiogram of the neck 11BRAIN MRI WITHOUT CONTRAST IMPRESSION: No significant change compared to the prior study. No acute intracranial abnormality. 12[facility] Video swallow by speech path normal [...] palpable abnormality. 17Cardiomegaly without acute process. 18[facility] Impression: 1. Mild esophageal dysmotility [...] chronic interstitial thickening. No acute findings. 26[facility] Stomach, antrum/body: 1. Mild chronic [...] MR & TR; LA mildly dilated 30[facility] Impression: 1. No acute cardiopulmonary [...] NO FACIAL FRACTURE IDENTIFIED BY RADIOGRAPHY. 34[facility] Impression: 1. No acute fracture or radiopaque foreign body within the left hand 35[facility] Impression: 1. One 5 mm polyp in the descending colon. Resected and retrieved 2. Non bleeding internal hemorrhoids 36tubular adenoma 37[facility] Impression: 1. The spirometry reveals [...] 44left wrist Results Laboratory List Name Date Anti-Thrombin III.Level (ANTITHROMBIN II I) 10/28/23 Basic Metabolic Panel (BASIC METAB PANEL ) 10/28/23 Complete Blood Count w Differential (CBC ,DIFFH) 10/28/23 Homocysteine.Level (HOMOCYSTEINE, PLASMA ) 10/28/23 NT-Pro BNP 10/28/23 Prothrombin Time w/ INR (PROTIME WITH IN R) 10/28/23 Most recent to oldest [Reference Range]: 1 Homocysteine(p) [<15.0 umol/L] 11.8 umol /L (10/28/23 11:30 AM) eGFR CKD-EPI [>60 mL/min/1.73 m2] 83 mL/ min/1.73 m2 1 (10/28/23 11:29 AM) BNP, NT-Pro [<125 pg/mL] 114 pg/mL (10/28/23 11:30 AM) Estimated CrCl 70.28 mL/min (10/28/23 12:09 PM) MPV [9.0-12.2 fL] 9.8 fL (10/28/23 11:29 AM) Immature Gran% 0.8 % (10/28/23 11:29 AM) Neut% 65.5 % (10/28/23 11:29 AM) Lymph% 21.9 % (10/28/23 11:29 AM) Apache% 8.1 % (10/28/23 11:29 AM) Baso% 1.1 % (10/28/23 11:29 AM) Eos% 2.6 % (10/28/23 11:29 AM) Immat Gran, Abs [0-0.4 K/uL] 0.08 K/uL (10/28/23 11:29 AM) Neut, Abs [2.0-7.7 K/uL] 6.78 K/uL (10/28/23 11:29 AM) Lymph, Abs [1.0-3.4 K/uL] 2.27 K/uL (10/28/23 11:29 AM) Apache, Abs [0-1.0 K/uL] 0.84 K/uL (10/28/23 AM) Baso, Abs [0-0.1 K/uL] 0.11 K/uL *HI* (10/28/23 AM) Eos, Abs [0-0.5 K/uL] 0.27 K/uL (10/28/23 AM) Type of Diff: AUTO *Unknown* (10/28/23) RDW [11.5-14.2 %] 14.7 % *HI* (10/28/23 AM) Anion Gap [5-14 mmol/L] 7 mmol/L (10/28/23 AM) BUN [7-20 mg/dL] 16 mg/dL (10/28/23 AM) Ca [8.4-10.2 mg/dL] 9.1 mg/dL (10/28/23 AM) Cl- [96-107 mmol/L] 106 mmol/L (10/28/23 AM) HCO3 [22-30 mmol/L] 24 mmol/L (10/28/23 AM) Cret [0.60-1.00 mg/dL] 0.75 mg/dL (10/28/23 AM) Glu [74-106 mg/dL] 124 mg/dL *HI* (10/28/23 AM) Hct [35-44 %] 36.6 % (10/28/23 AM) Hgb [11.7-15.0 g/dL] 11.4 g/dL *LOW* (10/28/23 AM) INR [0.9-1.1] 3.4 2 *HI* (10/28/23 AM) K [3.5-5.1 mmol/L] 3.5 mmol/L (10/28/23 AM) MCH [28-33 pg] 26.0 pg *LOW* (10/28/23 AM) MCHC [32-36 g/dL] 31.1 g/dL *LOW* (8/30/24 11:29 AM) MCV [81-96 fL] 83.6 fL (10/28/23 11:29 AM) Na [137-145 mmol/L] 137 mmol/L (10/28/23 11:29 AM) Plts [150-350 K/uL] 369 K/uL *HI* (10/28/23 11:29 AM) PT [12.0-14.2 seconds] 33.5 seconds *HI* (10/28/23 11:29 AM) RBC [3.90-5.00 M/uL] 4.38 M/uL (10/28/23 11:29 AM) WBC [4.0-10.4 K/uL] 10.35 K/uL (10/28/23 11:29 AM) AT III [80-123 %] 130 % *HI* (10/28/23 11:30 AM) 1Result Comment: Testing Performed By: Dept of Pathology [facility], [address] [place] [id number] 2Result Comment: Suggested therapeutic range for low-intensity Coumadin therapy for venous thromboembolism is INR 2.0-3.0 (ex: atrial fibrillation, history of TIA/stroke). For high risk patients, the suggested therapeutic range is INR 2.5-3.5 (ex: mechanical prosthetic valves). Testing Performed By: Dept of Pathology [facility], [address] [place] [address] Social History Social History Type Response Smoking Status Never smoked cigaret padmini Sex Female Sex Representation Female (finding) Patient Care team information Care Team Personnel Name: GATITO Breaux Tara Position: Nurse Pract - Family Med Member Role: Lifetime Relationship Address: [address] [place] [id number] [place] Name: MD Salazar, Cierra Burrows Position: Physician - Family Med Member Role: Primary Care Provider Address: [address] [place] [address] 1 [place] [address] [place] Name: GATITO Dean Shari A Position: Nurse Pract - Family Med Member Role: Lifetime Relationship Address: [address] [facility] [address] [place] [address] [place] Care Team Related Persons Name: OKSANA ROSALES Name: KOLBY ROSALES
--- OUTSIDE RECORDS SUMMARY | 2023-11-04 10:45 | External Medical Summary | Continuity of Care Document ---
Author Name Unknown Organization [place] [address] [address] Address [address], [place] [id number] Care Team Providers Care Racking Technician Name Role Phone Cierra Lincoln Primary Care Physician [phone] [id number] Date(s): 10/18/23 - 10/18/23 [facility] [address], [address] [place] [address] [phone] Discharge Disposition: Home or Self Care Attending [...] Status Refusal Reason SARS-CoV-2 (COVID-19) mRNA-vacc - [id number] 12/15/22 Recorded zoster vaccine, inactivated 11/13/22 Recorded [...] Daily, Disp# 90 tab, Refills: 3, Pharmacy: [id number] Start Date: 09/21/23 Status: Ordered BD 1 mL Allergy Syringe 28G x 1/2" Start: 06/25/19 2:27:00 PM EDT, See Instructions, Disp# 1 kit, Refills: 5, to be used to adminster Vitamin B12 injection, Pharmacy: [id number] Start Date: 06/25/19 Status: Ordered BD TB SYRINGE 27GX1/2" BD TB SYRINGE 27GX1/2", See Instructions, Disp# 1 syringe, Refills: 5, TO BE USED TO ADMINSTER VITAMIN B12 INJECTION, Pharmacy [id number] Start Date: 07/11/20 Status: Ordered BD TB SYRINGE 27GX1/2" Start: 10/15/21 8:14:00 PM EDT, BD TB SYRINGE 27GX1/2", See Instructions, Disp# 1 unknown unit, Refills: 5, TO BE USED TO ADMINSTER VITAMIN B12 INJECTION, Pharmacy [id number] Start Date: 10/15/21 Status: Ordered BD TB [...] INJECT 1,000MCG EVERY MONTH, Pharmacy: [id number] Start Date: 10/15/21 Status: Ordered esomeprazole 40 mg oral delayed release capsule Start: 04/21/23 7:14:00 AM EST, 1 cap, PO, Daily, Disp# 90 cap, Refills: 1, Pharmacy: [facility] Start Date: 04/21/23 Status: Ordered famotidine 20 mg oral tablet Start: 05/27/22 11:29:00 AM EDT, 2 tab, PO, bid, Disp# 360 tab, Refills: 1, Pharmacy: [facility] Start Date: 05/27/22 Stop Date: 11/23/22 Status: Ordered FLUoxetine 10 mg oral capsule Start: 10/07/23 9:41:00 AM EDT, 1 cap, PO, Daily, Disp# 30 cap, Refills: 6, Pharmacy: [facility] Start Date: 10/07/23 Status: Ordered hydrALAZINE 10 mg oral tablet Start: 08/27/22 8:19:00 AM EDT, 1 tab, PO, bid, Disp# 180 tab, Refills: 3, for BLOOD PRESSURE, Pharmacy: [facility] Start Date: 08/27/22 Status: Ordered hydrOXYzine hydrochloride 10 mg oral tablet Start: 05/30/23 7:53:00 AM EDT, 1 tab, PO, bid, Disp# 180 tab, Refills: 1, PRN: NEEDED FOR ANXIETY, Pharmacy: [facility] Start Date: 05/30/23 Status: Ordered levothyroxine 50 mcg (0.05 mg) oral tablet Start: 06/30/21 4:51:00 PM EDT, See Instructions, Disp# 34 tab, Refills: 3, 1 tab PO Daily for 6 days, then 2 po daily on one day of week, Note to Pharmacy: Please cancel rx for 25 mcg once daily, Pharmacy: [facility] Start Date: 06/30/21 Status: Ordered Lidocaine Viscous 2% mucous membrane solution Start: 05/27/22 11:26:00 AM EDT, 5 mL, topical, ac, Disp# 100 mL, Refills: 1, PRN: as needed for mouth sore pain, Pharmacy: [facility] Start Date: 05/27/22 Stop Date: 07/08/22 Status: Ordered metoprolol succinate 25 mg oral tablet, extended release Start: 05/07/21 10:02:00 AM EST, 1 tab, PO, Daily, Disp# 30 tab, Refills: 5, Pharmacy: [facility] Start Date: 05/07/21 Status: Ordered ondansetron 4 mg oral tablet See Instructions, Disp# 270 tab, Refills: 0, TAKE 1 TABLET BY MOUTH EVERY 8 HOURS, Pharmacy: [facility] [id number] Start Date: 07/11/20 Status: Ordered pantoprazole 40 mg oral delayed release tablet Start: 09/23/23 7:25:00 AM EDT, See Instructions, Disp# 90 tab, Refills: 0, TAKE 1 TABLET BY MOUTH EVERY DAY, Note to Pharmacy: Pt will need an appt for further refills., Pharmacy: [facility] Start Date: 09/23/23 Status: Ordered rOPINIRole 4 mg oral tablet Start: 07/06/23 8:00:00 AM EDT, 1 tab, PO, qhs, Disp# 30 tab, Refills: 5, Pharmacy: [facility] Start Date: 07/06/23 Status: Ordered simvastatin 40 mg oral tablet Start: 08/30/22 5:20:00 PM EDT, 1 tab, PO, qPM, Disp# 90 tab, Refills: 3, Note to Pharmacy: D/C 20 mgdose, Pharmacy: [facility] Start Date: 08/30/22 Stop Date: 08/25/23 Status: Ordered sucralfate 1 g oral tablet Start: 05/27/22 11:24:00 AM EDT, 1 tab, PO, ac and hs, Disp# 120 tab, Refills: 1, on an empty stomach, Pharmacy: [facility] Start Date: 05/27/22 Stop Date: 07/26/22 Status: Ordered valsartan 320 mg oral tablet See Instructions, Disp# 90 tab, Refills: 3, TAKE 1 TABLET BY MOUTH EVERY DAY, Pharmacy: [id number] Start Date: 05/12/21 Status: Ordered Vitamin D3 50,000 intl units (1250 mcg) oral capsule Start: 06/15/20 9:37:00 AM EDT, 1 cap, PO, q7days, Disp# 8 cap, Pharmacy: [id number] Start Date: 06/15/20 Stop Date: 08/10/20 Status: Ordered Voltaren 1% topical gel Start: 05/08/18 8:59:00 AM EDT, 1 appl, topical, qid, Disp# 100 g, Refills: 2, not to exceed 16 grams/day/single joint of lower extremities, PRN: Pain, Pharmacy: [facility][id number] Start Date: 05/08/18 Stop Date: 08/06/18 Status: Ordered Voquezna 20 mg oral tablet Start: 10/12/23 2:57:00 PM EDT, 1 tab, PO, Daily, Disp# 30 tab, Refills: 1, do not crush or chew, for 2 months and then back down to 10 mg, Pharmacy: [facility] Start Date: 10/12/23 Status: Ordered warfarin 3 mg oral tablet Start: 09/14/23 5:38:00 PM EDT, 2 tab, PO, Daily, Disp# 90 tab, Refills: 2, Pharmacy: [facility] Start Date: 09/14/23 Status: [...] evidence of gastroparesis or rapid gastric emptying [address] [place] [address] Impression: 1. LA Grade D reflux esophagitis [...] malignancy. 1 year screening is recommended. 9[facility] Impression: 1. No acute cardiopulmonary findings 10[facility] Impression: 1. Therre is no hemorrhage, mass effect, or evidence of acute territorial eschemia by CT criteria 2. Unremarkable CT angiogram of the brain 3. Unremarkable CT angiogram of the neck 11BRAIN MRI WITHOUT CONTRAST IMPRESSION: No significant change compared to the prior study. No acute intracranial abnormality. 12[facility] Video swallow by speech path normal [...] palpable abnormality. 17Cardiomegaly without acute process. 18[facility] Impression: 1. Mild esophageal dysmotility 2. Postoperative [...] chronic interstitial thickening. No acute findings. 26[facility] Stomach, antrum/body: 1. Mild chronic gastritis with [...] MR & TR; LA mildly dilated 30[facility] Impression: 1. No acute cardiopulmonary findings 31Pathology [...] NO FACIAL FRACTURE IDENTIFIED BY RADIOGRAPHY. 34[facility] Impression: 1. No acute fracture or radiopaque foreign body within the left hand 35[facility] Impression: 1. One 5 mm polyp in the descending colon. Resected and retrieved 2. Non bleeding internal hemorrhoids 36tubular adenoma 37[facility] Impression: 1. The spirometry reveals mild obstruction [...] specimens collected. 42polyps 43blepharoplasty 44left wrist Results Radiology Reports * Exam Date Time Procedure Performing Provider Status 10/18/23 4:02 PM Echo TransTHORacic TTE Complete Claudia Portillo; Final Notes: (Echo TransTHORacic TTE Complete) Reason For Exam: new murmur Echo TransTHORacic TTE Complete Report Signatures Finalized by Dr. Citlali Vela DO on 10/18/2023 07:32 PM [place] Act 112: No-No further action needed Summary 1. Normal left ventricular size and systolic function with no regional wall motion abnormalities. 2. Ejection fraction as calculated by Biplane Simpsons method is 70%. 3. Mild to moderate left ventricular hypertrophy. 4. Grade I diastolic dysfunction of the left ventricle (impaired relaxation pattern) with elevated left atrial pressure. 5. Mildly dilated left atrium size. 6. Normal right ventricular size and function. 7. Calcified, tricuspid aortic valve with restriction of the non-coronary cusp. Mild to moderate aortic stenosis (LVOT/AV ratio 0.40; AV mean PG 19 mmHg). 8. Mild to moderate tricuspid valve regurgitation. 9. Top normal estimated pulmonary artery pressures, estimated PASP is 33 mmHg. 10. Compared to the previous study performed 01/22/2020, the degree of aortic stenosis has worsened from mild to mild-moderate. 11. Cardiology consultation is scheduled 10/24/2023. Patient Info Name: MIGUEL ROSALES Age: 72 years : 1950 Gender: Female Ht: 155 cm Wt: 86 kg BSA: 1.97 m2 HR: 74 bpm Heart Rhythm: Sinus Rhythm Technical Quality: Good Exam Date: 10/18/2023 3:19 PM Exam Location: [facility] Patient Status: Outpatient Staff Ordering Physician: Cierra Lincoln Smalltalk Developer: Claudia Portillo RDCS, T Attending Physician: Cierra Lincoln Study Info CPT 80793 - Indications I350 - Nonrheumatic aortic (valve) stenosis Procedure(s) * A complete two-dimensional, color flow and Doppler transthoracic echocardiogram was performed. Exam Type: Cardiac Basic Left Ventricle Normal left ventricular size and systolic function with no regional wall motion abnormalities. Ejection fraction as calculated by Biplane Simpsons method is 70%. Mild to moderate left ventricular hypertrophy. Grade I diastolic dysfunction of the left ventricle (impaired relaxation pattern) with elevated left atrial pressure. Right Ventricle Normal right ventricular size and function. TAPSE is normal, 1.9 cm. Prominent moderator band in right ventricle. Left Atrium Mildly dilated left atrium size. Right Atrium Normal right atrial size. Atrial Septum Lipomatous hypertrophy of the atrial septum; Appears intact. Aortic Valve Calcified, tricuspid aortic valve with restriction of the non-coronary cusp. Mild to moderate aortic stenosis (LVOT/AV ratio 0.40; AV mean PG 19 mmHg). Pulmonic Valve Unremarkable pulmonic valve. Mitral Valve Mildly calcified mitral valve annulus. Trace to mild mitral valve regurgitation. Tricuspid Valve Mild to moderate tricuspid valve regurgitation. Top normal estimated pulmonary artery pressures, estimated PASP is 33 mmHg. Pericardium/Pleural No pericardial effusion. Inferior Vena Cava Normal IVC size and inspiratory collapse. Estimated right atrial pressure is 3 mmHg. Aorta Normal aortic root, ascending aorta and aortic arch. Calcified aortic root, sinotubular junction and aortic arch. Left Ventricular Outflow Tract Name Value Normal LVOT 2D LVOT Diameter 2.3 cm LVOT Doppler LVOT Peak Velocity 1.20 m/s LVOT Mean Gradient 3 mmHg LVOT VTI 25.30 cm LVOT VTI/AV VTI Ratio 0.40 LVOT Stroke Volume 109.62 ml LVOT Stroke Volume Index 0.06 l/m2 LVOT Cardiac Output 8.11 l/min LVOT Cardiac Index 4.12 L/min/m2 Pulmonic Valve Name Value Normal PV 2D RVOT Diameter (2D) 3.0 cm 1.7-2.7 RVOT Doppler RVOT Peak Velocity 0.49 m/s PV Doppler PV Peak Velocity 0.93 m/s Mitral Valve Name Value Normal MV Doppler MV PHT 75 ms MV Diastolic Function MV E Peak Velocity 0.65 m/s <=0.50 MV A Peak Velocity 0.90 m/s MV E/A 0.72 <=0.80 MV Decel Time 257 ms MV Annular TDI MV Septal s' Velocity 5.25 cm/s MV Septal e' Velocity 4.58 cm/s >=7.00 MV E/e' (Septal) 14.2 <=8.0 MV Lateral s' Velocity 7.13 cm/s MV Lateral e' Velocity 4.50 cm/s >=10.00 MV E/e' (Lateral) 14.49 <=8.00 MV e' Average 4.54 MV E/e' (Average) 14.36 <=14.00 Tricuspid Valve Name Value Normal TV Regurgitation Doppler TR Peak Velocity 2.73 m/s <=2.80 Estimated PAP/RSVP RA Pressure 3 mmHg <=5 PA Systolic Pressure 33 mmHg <40 TV Diastolic Function TV E Peak Velocity 0.46 m/s TV A Peak Velocity 0.57 m/s TV E/A 0.81 0.80-2.00 TV Decel Time 232 ms >=120 TV Annular TDI TV Lateral Magdalena s' Velocity 20.2 cm/s 9.5-18.7 TV Lateral Magdalena e' Velocity 11.3 cm/s <7.8 TV E/e' 4.05 2.00-6.00 Aorta Name Value Normal Ascending Aorta Sinus of Valsalva Diameter 3.1 cm 2.7-3.3 Sinus of Valsalva Index 1.58 cm/m2 1.60-2.00 Prox Asc Ao Diameter 3.5 cm 2.3-3.1 Prox Asc Ao Diameter Index 1.80 cm/m2 1.30-1.90 Thoracic Aorta Ao Arch Diameter 2.6 cm Desc Ao Peak Velocity 0.59 m/s Desc Ao Peak Gradient 1 mmHg Venous Name Value Normal IVC/SVC IVC Diameter (Insp 2D) 0.5 cm IVC Diameter (Exp 2D) 1.0 cm <=2.1 IVC Diameter Percent Change (2D) 47 % >=50 Aortic Valve Name Value Normal AV Doppler AV Peak Velocity 3.01 m/s <2.00 AV Peak Gradient 36 mmHg AV Mean Gradient 19 mmHg <20 AV VTI 62.86 cm AV Area (Cont Eq VTI) 1.7 cm2 >=2.0 AV Area Index (Cont Eq VTI) 0.89 cm2/m2 AV Area (Cont Eq [place]) 1.7 cm2 AV Area Index (Cont Eq [place]) 0.88 cm2/m2 AV V1/V2 Ratio 0.40 AV Regurgitation 2D LVOT Area 4.3 cm2 Ventricles Name Value Normal LV Dimensions 2D/MM IVS Diastolic Thickness (2D) 1.3 cm 0.6-0.9 LVID Diastole (2D) 4.5 cm 3.3-5.1 LVIW Diastolic Thickness (2D) 1.2 cm 0.6-0.9 LVID Systole (2D) 2.9 cm 2.2-3.5 LVOT Diameter 2.3 cm LV Mass (2D Cubed) 204.03 g 67.00-162.00 LV Mass Index (2D Cubed) 0.01 g/cm2 0.00-0.01 Relative Wall Thickness (2D) 0.53 LV Fractional Shortening/Ejection Fraction 2D/MM LV Fractional Shortening (2D) 35 % 27-45 LV Diastolic Volume (4C MOD) 101 ml LV Diastolic Volume (2C MOD) 96 ml LV Diastolic Volume (BP MOD) 98 ml 46-106 LV Diastolic Volume Index (BP MOD) 49.80 ml/m2 29.00-61.00 LV Systolic Volume (BP MOD) 29 ml 14-42 LV Systolic Volume Index (BP MOD) 14.51 ml/m2 8.00-24.00 LV EF (BP MOD) 70 % 58-69 LV SV (BP MOD) 69.44 ml RV Dimensions 2D/MM RV Basal Diastolic Dimension 3.6 cm 2.5-4.1 TAPSE 1.9 cm >=1.7 Atria Name Value Normal LA Dimensions LA Area (4C) 21.5 cm2 LA Length (4C) 5.6 cm LA Area (2C) 19.9 cm2 LA Length (2C) 5.7 cm LA Volume (4C A-L) 69.93 ml LA Volume (2C A-L) 59.15 ml LA Volume (BP A-L) 65 ml 22-52 LA Volume Index (BP A-L) 32.88 ml/m2 <=34.00 RA Dimensions RA Area (4C) 15.5 cm2 <=18.0 Final Signed by:DO Vela Michelle L Signed (Electronic Signature):10/18/2023 3:19 p Social History Social History Type Response Smoking Status Never smoked cigaret padmini Sex Female Sex Representation Female (finding) Patient Care team information Care Team Personnel Name: GATITO Breaux Tara Position: Nurse Pract - Family Med Member Role: Lifetime Relationship Address: [address] [place] [address] Name: MD Salazar, Cierra Burrows Position: Physician - Family Med Member Role: Primary Care Provider Address: [address] [place] [address] Name: GATITO Dean Shari A Position: Nurse Pract - Family Med Member Role: Lifetime Relationship Address: [address] Care Team Related Persons Name: OKSANA ROSALES Name: KOLBY ROSALES
--- OUTSIDE RECORDS SUMMARY | 2023-11-04 10:45 | External Medical Summary | Continuity of Care Document ---
Author Name Unknown Organization [place] [address] [facility] Address [address] [place] [address] [id number] Care Team Providers Care Manager Lvn Name Role Phone Cierra Lincoln Primary Care Physician [phone] [id number] Date(s): 10/24/23 - 10/24/23 [facility] [address], [address] [place] [address] [phone] Encounter Diagnosis SOB (shortness of breath)(Discharge Diagnosis) - 10/24/23 Aortic stenosis, moderate(Discharge Diagnosis) - 10/24/23 Pulmonary hypertension(Discharge Diagnosis) - 10/24/23 Pulmonary embolus(Discharge Diagnosis) - 10/24/23 Paroxysmal atrial fibrillation(Discharge Diagnosis) - 10/25/23 Discharge Disposition: Home or Self Care Attending Physician: DO Vela Michelle L Referring Physician: MD Lincoln Amy L [...] any opiate Assessment and Plan Extracted from: Title:Cardiology Office Visit Note Author:DO Vela Michelle L Date:10/25/23 1.SOB (shortness of breath ) 2.Pulmonary embolus Recurrentpulmonary embolus:InitialPE was in 2020in setting of pneumonia also developed paroxysmal atrial fibrillationon Eliquis Recurrent pulmonary emboluswhile takingEliquisEliquis now switched towarfarin. 3.Aortic stenosis, moderate By gradients heraortic stenosis appears to be moremild to perhaps moderate. 4.Pulmonary hypertension 5.Paroxysmal atrial fibrillation As far as I can tell this only occurred in the setting of her prior pneumonia back in 2019with the pulmonary embolus. Will recommend that she undergo right and left heart catheterization to define her pulmonarypressures as well asassess theaortic valvular disease. I am not suspicious that she has coronary disease at this point however that will also be ruled out. She will need to be bridged with Lovenox given the recurrent pulmonary embolus. Depending on the results of her catheterization, further recommendations will follow. I have also ordered her to have pulmonary function test performedas well asambulatory pulse oxto assess her oxygen saturations with exercise. If her PFTs or the pulse ox come back abnormalshe may need to seepulmonary medicine as well. I ordered a hypercoagulable workup on herminus the protein S and protein C given that she is onCoumadin at this time. Thank you for allowing me to participate in the care of this very nice woman. I look forward to participating in her care with you. Depending on the results of her catheterization further recommendations will follow. I will follow-up with her after the procedureand make further recommendations. I will also manage the bridging of her Lovenox for the catheterization. Immunizations Given and Recorded Vaccine Date Status Refusal Reason SARS-CoV-2 (COVID-19) mRNA-vacc - [id number] 12/15/22 Recorded zoster vaccine, inactivated 11/13/22 Recorded [...] Daily, Disp# 90 tab, Refills: 3, Pharmacy: [facility] 2229 Start Date: 09/21/23 Status: Ordered BD 1 mL Allergy Syringe 28G x 1/2" Start: 06/25/19 2:27:00 PM EDT, See Instructions, Disp# 1 kit, Refills: 5, to be used to adminster Vitamin B12 injection, Pharmacy: [facility] 2229 Start Date: 06/25/19 Status: Ordered BD TB SYRINGE 27GX1/2" BD TB SYRINGE 27GX1/2", See Instructions, Disp# 1 syringe, Refills: 5, TO BE USED TO ADMINSTER VITAMIN B12 INJECTION, Pharmacy [id number] Start Date: 07/11/20 Status: Ordered BD TB SYRINGE 27GX1/2" Start: 10/15/21 8:14:00 PM EDT, BD TB SYRINGE 27GX1/2", See Instructions, Disp# 1 unknown unit, Refills: 5, TO BE USED TO ADMINSTER VITAMIN B12 INJECTION, Pharmacy [id number] Start Date: 10/15/21 Status: Ordered BD TB SYRINGE 27GX1/2" Start: 06/25/19 2:27:00 PM EDT, See Instructions, Disp# 1, Refills: 5, TO BE USED TO ADMINSTER VITAMIN B12 INJECTION, Pharmacy: [facility]/pharmacy #[id number], TO BE USED TO ADMINSTER VITAMIN B12 INJECTION Start Date: 06/25/19 Status: Ordered cyanocobalamin 1000 mcg/mL injectable solution Start: 10/15/21 8:14:00 PM EDT, See Instructions, Disp# 3 mL, Refills: 5, INJECT 1,000MCG EVERY MONTH, Pharmacy: [facility] Start Date: 10/15/21 Status: Ordered esomeprazole 40 mg oral delayed release capsule Start: 04/21/23 7:14:00 AM EST, 1 cap, PO, Daily, Disp# 90 cap, Refills: 1, Pharmacy: [facility] 2229 Start Date: 04/21/23 Status: Ordered famotidine 20 mg oral tablet Start: 05/27/22 11:29:00 AM EDT, 2 tab, PO, bid, Disp# 360 tab, Refills: 1, Pharmacy: [facility] 2229 Start Date: 05/27/22 Stop Date: 11/23/22 Status: Ordered FLUoxetine 10 mg oral capsule Start: 10/07/23 9:41:00 AM EDT, 1 cap, PO, Daily, Disp# 30 cap, Refills: 6, Pharmacy: [facility] 2229 Start Date: 10/07/23 Status: Ordered hydrALAZINE 10 mg oral tablet Start: 08/27/22 8:19:00 AM EDT, 1 tab, PO, bid, Disp# 180 tab, Refills: 3, for BLOOD PRESSURE, Pharmacy: [facility] 2229 Start Date: 08/27/22 Status: Ordered hydrOXYzine hydrochloride 10 mg oral tablet Start: 05/30/23 7:53:00 AM EDT, 1 tab, PO, bid, Disp# 180 tab, Refills: 1, PRN: NEEDED FOR ANXIETY, Pharmacy: [facility] 2229 Start Date: 05/30/23 Status: Ordered levothyroxine 50 mcg (0.05 mg) oral tablet Start: 06/30/21 4:51:00 PM EDT, See Instructions, Disp# 34 tab, Refills: 3, 1 tab PO Daily for 6 days, then 2 po daily on one day of week, Note to Pharmacy: Please cancel rx for 25 mcg once daily, Pharmacy: [facility] 2229 Start Date: 06/30/21 Status: Ordered Lidocaine Viscous 2% mucous membrane solution Start: 05/27/22 11:26:00 AM EDT, 5 mL, topical, ac, Disp# 100 mL, Refills: 1, PRN: as needed for mouth sore pain, Pharmacy: [facility] 2229 Start Date: 05/27/22 Stop Date: 07/08/22 Status: Ordered Lovenox 100 mg/mL injectable solution Start: 10/25/23 1:24:00 PM EDT, 0.9 mL, subQ, q12h, Disp# 10 pen_needle, Refills: 1, bridging for cardiac cath pre and post-date to be determined, Note to Pharmacy: q 12 hours as directed for procedure, Stop: 11/25/23 1:29:00 PM EDT, Pharmacy: [facility] 223, Earliest Fill Date: 10/26/23 Start Date: 10/25/23 Stop Date: 11/25/23 Status: Ordered ondansetron 4 mg oral tablet See Instructions, Disp# 270 tab, Refills: 0, TAKE 1 TABLET BY MOUTH EVERY 8 HOURS, Pharmacy: [facility] [id number] Start Date: 07/11/20 Status: Ordered pantoprazole 40 mg oral delayed release tablet Start: 09/23/23 7:25:00 AM EDT, See Instructions, Disp# 90 tab, Refills: 0, TAKE 1 TABLET BY MOUTH EVERY DAY, Note to Pharmacy: Pt will need an appt for further refills., Pharmacy: [facility] Start Date: 09/23/23 Status: Ordered rOPINIRole 4 mg oral tablet Start: 07/06/23 8:00:00 AM EDT, 1 tab, PO, qhs, Disp# 30 tab, Refills: 5, Pharmacy: [facility] Start Date: 07/06/23 Status: [...] 1 TABLET BY MOUTH EVERY DAY, Pharmacy: [id number] Start Date: 05/12/21 Status: Ordered Vitamin D3 50,000 intl units (1250 mcg) oral capsule Start: 06/15/20 9:37:00 AM EDT, 1 cap, PO, q7days, Disp# 8 cap, Pharmacy: [facility]/pharmacy #[id number] Start Date: 06/15/20 Stop Date: 08/10/20 Status: Ordered Voltaren 1% topical gel Start: 05/08/18 8:59:00 AM EDT, 1 appl, topical, qid, Disp# 100 g, Refills: 2, not to exceed 16 grams/day/single joint of lower extremities, PRN: Pain, Pharmacy: [facility]/pharmacy #[id number] Start Date: 05/08/18 Stop Date: 08/06/18 [...] Pharmacy 2229 Start Date: 09/14/23 Status: Ordered Mental Status 10/24/23 Barriers to Learning one year None evide nt Mandatory Health Literacy Documentation Yes Health Literacy Communication Barriers N ever Primary Language Maldivian Problem List Condition Confirmation Course Effective Dates [...] Effective Dates Health Status Clinical Service Informant Aortic stenosis, moderate Discharge Diagnosis 10/24/23 Non-Specified SOB (shortness of breath) Discharge Diagnosis 10/24/23 Non-Specified Pulmonary hypertension Discharge Diagnosis 10/24/23 Non-Specified Pulmonary embolus Discharge Diagnosis 10/24/23 Non-Specified Paroxysmal atrial fibrillation Discharge Diagnosis 10/25/23 Non-Specified Procedures Procedure Date Related Diagnosis Body [...] of gastroparesis or rapid gastric emptying 3[facility] Impression: 1. LA Grade D reflux esophagitis [...] malignancy. 1 year screening is recommended. 9[facility] Impression: 1. No acute cardiopulmonary findings 10[facility] Impression: 1. Therre is no hemorrhage, mass effect, or evidence of acute territorial eschemia by CT criteria 2. Unremarkable CT angiogram of the brain 3. Unremarkable CT angiogram of the neck 11BRAIN MRI WITHOUT CONTRAST IMPRESSION: No significant change compared to the prior study. No acute intracranial abnormality. 12[facility] Video swallow by speech path normal [...] palpable abnormality. 17Cardiomegaly without acute process. 18[facility] Impression: 1. Mild esophageal dysmotility 2. Postoperative [...] chronic interstitial thickening. No acute findings. 26[facility] Stomach, antrum/body: 1. Mild chronic gastritis with [...] MR & TR; LA mildly dilated 30[facility] Impression: 1. No acute cardiopulmonary findings 31Pathology [...] NO FACIAL FRACTURE IDENTIFIED BY RADIOGRAPHY. 34[facility] Impression: 1. No acute fracture or radiopaque foreign body within the left hand 35[facility] Impression: 1. One 5 mm polyp in the descending colon. Resected and retrieved 2. Non bleeding internal hemorrhoids 36tubular adenoma 37[facility] Impression: 1. The spirometry reveals mild obstruction [...] to oldest [Reference Range]: 1 Patient Weight 91.9 kg (10/24/23 3:15 PM) Heart Rate 82 bpm (10/24/23 3:15 PM) Respiratory Rate 18 br/min (10/24/23 3:15 PM) Blood Pressure 144/84mmHg (10/24/23 3:15 PM) Cuff Pulse Pressure 60 mmHg (10/24/23 3:15 PM) Social History Social History Type Response Smoking Status Never smoked cigaret padmini Sex Female Sex Representation Female (finding) Cardiology Outpatient Note * DO Vela Michelle L: PERFORM, MODIFY Event Display: Cardiology Outpt Note Authored Date: [id number] Primary Care Provider MD Lincoln Amy L Referring Provider MD Lincoln Amy L Reason for Consultation Evaluate shortness of breathrecent echo withincreasing aortic stenosis Chief Complaint here for new heart murmur, had ekg, echo. c/o sob and fatigue + swelling to bilateral lower extremities. this has gone on for a couple of months- getting worse. hx of htn. History of Present Illness Lalo a72 Elly is here for evaluation ofrecent increase and worsening of her shortness of breath. She has had shortness of breath for quite some time. She has a history of 2 prior catheterizations however these were both done decades ago she thinks when she was in her 40s orearly 50s. She was told that she hadnormal coronary arteries at the time.She was recently noted to have aheart murmurand a2D echo shows mild to perhaps moderateaortic stenosiswith gradients that were slightly higher than her priorecho [id number]. She has noted the increasing shortness of breath however since back in 2019 in the setting of pneumoniaand (not COVID however)she developeda pulmonary embolusas well as paroxysmal atrial fibrillation. She was treated with Eliquis and was on thisforthe last 3to 4 years. She is quick to admit that due to the cost of the medication however at times she wasskipping doses. Earlierthis summ er in July, while she reports that she was actually takingthe Eliquisshe becamemuch more short of breathandpresented to the emergency roomand was found to havemultipleright lower lobesegmental and subsegmental pulmonary embolus. At this time becausethis occurred in the settingof her taking Eliquis, she was changed over toCoumadin. So she has been on Coumadin since July and I wouldmention however reviewing her protimesthat she has been subtherapeutic with an INR under 2much of the time sincethe Coumadin was started. She reportsshortness of breath with mosthousehold ADLs. She is unable to vacuum. She is unable to walk 1 flight of stairs she is unable to walk 1 block without having to stop and catch her breath. I do not think we have done an assessment on her of her oxygen saturationswith ambulation at this point. I was able to pull up her records from in the hospital andmarah did not undergo blood work to evaluate her for a hypercoagulable state. Unfortunately now because she is on Coumadinwe will not be able to check protein S or protein C levels however we can check some the otherconditions. Her shortness of breath seems to be fairly significantand her aortic stenosismaybe contributing to this to some extent however it is difficult to say. Because she has had stress testingwithin the last 2 yearswith a dobutamine stress echo that wasinterpreted as normal, I am not going to repeat stress testing on her however I am going torecommend we go right to right and left heart catheterization to define herpulmonary pressuresas well as the significance of the aortic stenosis contributing toher shortness of breath. She is aware that we will need to bridge her with Lovenox forthe procedure. She will need to take 1 mg/kg SQ every 12 hours. That we will give her a dose of approximately 90mg every 12 hours. When we schedule the catheterization I will come upwith a Lovenox schedule for her to follow. If were going to maintain her on Coumadin, we need to make sure her INR stay therapeutic and is close to 25 aspossible. If her hypercoagulable workup comes back abnormal I would considerreferring her onto hematology as well. I will have further recommendations after the catheterization is performed. In the meantimeIwill continueon her current medications. I would note however thatmetoprolol is listed as an active medication on her list however she reports that she is not taking this medication. Review of Systems General: no fevers, chills, weight loss of gain HEENT: no changes in vision or hearing; no recent falls or head trauma Cardiac: No other symptoms other than reported in HPI Pulmonary: No symptoms other than reported in HPI Abdomen: No changes in bowel habits, nausea, vomiting, no BRBPR : no changes in urine frequency Extremities: no edema or claudication Physical Exam Vitals & Measurements HR:82(Monitored) RR:18 BP:144/84 SpO2:98% WT:91.9kg WT:91.900kg(Dosing) Patient is awake alert and oriented x3and in no acute distress;she does have some conversational dyspnea HEENT:2+ carotid upstrokes, no evidence of carotid bruits;mild JVD LUNGS:Diminished breath sounds bilaterally but are essentially clear HEART:Regular rate and rhythmgrade 1/6 to 2/6 systoliccrescendo decrescendo murmur at thebase of the heartconsistent with aorticstenosis ABDOMEN:Soft nontender nondistended positive bowel sounds EXTREMITIES:No evidence of clubbing cyanosis. Trace edema PSYCHIATRIC:Patients affect appeared appropriate EKG ,08/10/2023EKG in the hospital in the setting of pulmonary embolus shows normal sinus rhythm with ventricular bigeminy Assessment/Plan 1.SOB (shortness of breath) 2.Pulmonary embolus Recurrentpulmonary embolus:InitialPE was in 2020in setting of pneumonia also developed paroxysmal atrial fibrillationon Eliquis Recurrent pulmonary emboluswhile takingEliquisEliquis now switched towarfarin. 3.Aortic stenosis, moderate By gradients heraortic stenosis appears to be moremild to perhaps moderate. 4.Pulmonary hypertension 5.Paroxysmal atrial fibrillation As far as I can tell this only occurred in the setting of her prior pneumonia back in 2020with the pulmonary embolus. Will recommend that she undergo right and left heart catheterization to define her pulmonarypressures as well asassess theaortic valvular disease. I am not suspicious that she has coronary disease at this point however that will also be ruled out. She will need to be bridged with Lovenox given the recurrent pulmonary embolus. Depending on the results of her catheterization, further recommendations will follow. I have also ordered her to have pulmonary function test performedas well asambulatory pulse oxto assess her oxygen saturations with exercise. If her PFTs or the pulse ox come back abnormalshe may need to seepulmonary medicine as well. I ordered a hypercoagulable workup on herminus the protein S and protein C given that she is onCoumadin at this time. Thank you for allowing me to participate in the care of this very nice woman. I look forward to participating in her care with you. Depending on the results of her catheterization further recommendations will follow. I will follow-up with her after the procedureand make further recommendations. I will also manage the bridging of her Lovenox for the catheterization. Problem List/Past Medical History Ongoing Adjustment disorder with depressed mood Ankle edema Annual physical exam Anxiety Anxious depression Aortic heart murmur Balance problem Benign essential tremor Benzodiazepine (tranquilizer) overdose Chest tightness Chronic cough Dysphagia Edema Encounter for PPD test Endometrial thickening on ultrasound Erosive esophagitis Esophagitis, reflux Facial tic Fatigue Gastroparesis Generalized weakness Hiatal hernia with GERD and esophagitis HTN (hypertension) Hypothyroidism Intestinal metaplasia of gastric cardia Left hip pain Meniscus tear Mild persistent reactive airway disease without complication Nonadherence to medication Panic disorder Pes anserine bursitis Poor balance Urinary and fecal incontinence Weight disorder Resolved Acute dyspnea Acute head injury Bereavement Cerebral concussion Chest discomfort Cough Facial trauma Fever Left arm pain Left knee pain Needlestick injury accident Needlestick injury of finger Syncope, vasovagal Procedure/Surgical History GASTRIC EMPTYING IMAG STUDY| Service Date: 10/13/2022Upper GI (gastrointestinal) endoscopy| Service Date: 3Colonoscopy| Service Date: 06/24/2021olonoscopy| Service Date: 06/24/2021olonoscopy| Service Date: 01/08/2021Mammogram| Service Date: 08/19/2020MRI| Service Date: 05/27/2020T angio of head/neck| Service Date: 05/27/2020hest x-ray| [...] Service Date: 1989Excision of ganglion cystOral surgery Cardiac History History of2 prior cardiac catheterizations in her 40s and 48spatient reports having normal coronary arteries. Pulmonary embolus in the setting ofpneumonia 2020 also developed paroxysmal atrial fibrillationstarted on Eliquis. Recurrent pulmonary embolus while on Eliquis08/18/2023 Mild to perhaps moderate aortic stenosisby echo10/18/2023EKGs from the hospital showed normal sinus rhythm there are noacute ST-T wave changes noted Medications amLODIPine(amLODIPine 10 mg oral tablet), 1 tab, PO, Daily cholecalciferol(Vitamin D3 50,000 intl units (1250 mcg) oral capsule), 17472 Int_Unit= 1 cap, PO, q7days cyanocobalamin(cyanocobalamin 1000 mcg/mL injectable solution), See Instructions diclofenac topical(Voltaren 1% topical gel), 1 appl, topical, qid, PRN, 2 refills enoxaparin(Lovenox 100 mg/mL injectable solution), 90 mg= 0.9 mL, 1 mg/kg, subQ, q12h, 1 refills esomeprazole(esomeprazole 40 mg oral delayed release capsule), 40 mg= 1 cap, PO, Daily, 1 refills famotidine(famotidine 20 mg oral tablet), 40 mg= 2 tab, PO, bid, 1 refills FLUoxetine(FLUoxetine 10 mg oral capsule), 10 mg= 1 cap, PO, Daily, 6 refills hydrALAZINE(hydrALAZINE 10 mg oral tablet), 10 mg= 1 tab, PO, bid, 3 refills hydrOXYzine(hydrOXYzine hydrochloride 10 mg oral tablet), 1 tab, PO, bid, PRN, 1 refills levothyroxine(levothyroxine 50 mcg (0.05 mg) oral tablet), See Instructions, 3 refills lidocaine topical(Lidocaine Viscous 2% mucous membrane solution), 0.1 g= 5 mL, topical, ac, PRN, 1 refills ondansetron(ondansetron 4 mg oral tablet), See Instructions pantoprazole(pantoprazole 40 mg oral delayed release tablet), See Instructions rOPINIRole(rOPINIRole 4 mg oral tablet), 1 tab, [...] valsartan(valsartan 320 mg oral tablet), See Instructions vonoprazan(Voquezna 20 mg oral tablet), 20 mg= 1 tab, PO, Daily, 1 refills warfarin(warfarin 3 mg oral tablet), 6 mg= 2 tab, PO, Daily, 2 refills Allergies Allergy Not found in Search(Severe)severe sensitivity [...] MGF. Stroke: MGM. Health Status Family Member(s) Lab Results Test Name Test Result Date/Time INR 1.3 10/07/2023 09:51 EDT INR 2.5 09/22/2023 11:35 EDT INR 1.8 09/09/2023 13:47 EDT INR 1.5 09/02/2023 14:39 EDT INR 3.1 08/25/2023 14:07 EDT INR 2.9 08/18/2023 14:06 EDT INR 2.4 08/15/2023 13:53 EDT PT 16.3 seconds 10/07/2023 09:51 EDT PT 27.6 seconds 09/22/2023 11:35 EDT PT 21.0 seconds 09/09/2023 13:47 EDT PT 17.8 seconds 09/02/2023 14:39 EDT PT 32.8 seconds 08/25/2023 14:07 EDT PT 30.9 seconds 08/18/2023 14:06 EDT PT 26.2 seconds 08/15/2023 13:53 EDT Electronic Signature on File Electronically Reviewed/Signed by: Citlali Vela DO Author Signature Dt/Tm:10/25/2023 01:34 PM Division of General Cardiology Electronically Reviewed/Signed by: Citlali Vela DO Cosigner Signature Dt/Tm: 10/25/2023 01:36PM Division of General Cardiology MLS Patient Care team information Care Team Personnel Name: GATITO Breaux Tara Position: Nurse Pract - Family Med Member Role: Lifetime Relationship Address: [address] [place] [id number] [place] Name: MD Salazar, Cierra Burrows Position: Physician - Family Med Member Role: Primary Care Provider Address: [address] [address] [place] Name: GATITO Dean Shari A Position: Nurse Pract - Family Med Member Role: Lifetime Relationship Address: [address] [facility] [address] [place] [id number] [place] Care Team Related Persons Name: OKSANA ROSALES Name: KOLBY ROSALES
--- OUTSIDE RECORDS SUMMARY | 2023-11-04 10:46 | External Medical Summary | Continuity of Care Document ---
Author Name Unknown Organization [facility] [address] [facility] Address [address] [place] [address] [phone] Care Team Providers Care Semiconductor Assembler Name Role Phone Cierra Lincoln Primary Care Physician [phone] Encounter [facility] [id number] Date(s): 10/07/23 - 10/07/23 [facility] [address], [address] [place] [address] [phone] Encounter Diagnosis Chest tightness(Discharge Diagnosis) - 10/06/23 Aortic heart murmur(Discharge Diagnosis) - 10/06/23 Mild persistent reactive airway disease without complication(Discharge Diagnosis) - 10/06/23 HTN (hypertension)(Discharge Diagnosis) - 10/06/23 Benign essential tremor(Discharge Diagnosis) - 10/06/23 Balance problem(Discharge Diagnosis) - 10/06/23 Anxious depression(Discharge Diagnosis) - 10/06/23 Discharge Disposition: Home or Self Care Attending [...] Visit Note Author:MD Lincoln Amy L D ate:10/07/23 1.Chest tightness STATUS : chronic, stable. DATA : hx & exam reviewed. GOAL : evaluate& txcauseofchestpain. Maintain euvolemia, stable cardiac rhythm. PLAN : she willbe establishing with cardiology in next fewweeks. She needsstress test,butwill need toinvestigatewhen thiscanbe done,inconjunction withher PE/anticoagulation. 2.Aortic heart murmur STATUS: Chronic stable. DATA: hx & examreviewed. GOAL: evaluate& tx causeof murmur. PLAN: murmurwas muchlessprominentontoday'svisit.[place] scheduledon10/17.Cont current monitoring. 3.HTN (hypertension) Status : chronic, controlled. Data : BP readings reviewed. Goal : maintain normal BP. Plan : continue current BPmeds. Hadstableelectrolytes & renal function done in 07/21. 4.Balance problem STATUS: Chronic, worse. DATA: hx, exam& neuronotereviewed. GOAL: evaluate& tx causeofher neuro sx. PLAN: discussedthat in hisnote,hementionednormal pressurehydrocephalus as something jerrell ruledout, notasdefinitedx.Discussedparkinsonism & use of Sinemetfor this. 5.Anxious depression Status : chronic, worse. Data : hx reviewed. Goal : achieve&maintain remission. Plan : thankfully, sheconvincinglydeniesSI.Butwouldsuspect thisisexacerbating allofherotherproblems.Shequitgoingtopsychiatry &quittaking hermedsfor unclearreasons.Discussed, will start Fluoxetine 10mg daily. GISSELL. Phone follow up in 3-4 weeks. 6.Benign essential tremor STATUS: Chronic, worse. DATA: hx, exam& neuronotereviewed. GOAL: evaluate& tx causeofher tremor. PLAN: Discussedparkinsonism & use of Sinemetfor this. 7.Mild persistent reactive airway disease without complication STATUS: Chronic, stable. DATA: hx & examreviewed. GOAL: control allergic sx.Maintain respiratory stability. PLAN: ifallofhrcardiac work up provesto benegative,may needtoconsiderpulm eval. Return [id number]. Time:Total time spent with this patient on day of evaluation including chart review, ordering, education and coordination of care elements: 42_ minutes Immunizations Given and Recorded Vaccine Date Status Refusal Reason SARS-CoV-2 (COVID-19) mRNA-vacc - [id number] 12/15/22 Recorded zoster vaccine, inactivated 11/13/22 Recorded [...] Daily, Disp# 90 tab, Refills: 3, Pharmacy: [id number] Start Date: 09/21/23 Status: Ordered BD 1 mL Allergy Syringe 28G x 1/2" Start: 06/25/19 2:27:00 PM EDT, See Instructions, Disp# 1 kit, Refills: 5, to be used to adminster Vitamin B12 injection, Pharmacy: [facility] Start Date: 06/25/19 Status: Ordered BD TB SYRINGE 27GX1/2" BD TB SYRINGE 27GX1/2", See Instructions, Disp# 1 syringe, Refills: 5, TO BE USED TO ADMINSTER VITAMIN B12 INJECTION, Pharmacy [id number] Start Date: 07/11/20 Status: Ordered BD TB SYRINGE 27GX1/2" Start: 10/15/21 8:14:00 PM EDT, BD TB SYRINGE 27GX1/2", See Instructions, Disp# 1 unknown unit, Refills: 5, TO BE USED TO ADMINSTER VITAMIN B12 INJECTION, Pharmacy [id number] Start Date: 10/15/21 Status: Ordered BD TB SYRINGE 27GX1/2" Start: 06/25/19 2:27:00 PM EDT, See Instructions, Disp# 1, Refills: 5, TO BE USED TO ADMINSTER VITAMIN B12 INJECTION, Pharmacy: [facility]/pharmacy #[id number], TO BE USED TO ADMINSTER VITAMIN B12 INJECTION Start Date: 06/25/19 Status: Ordered cyanocobalamin 1000 mcg/mL injectable solution Start: 10/15/21 8:14:00 PM EDT, See Instructions, Disp# 3 mL, Refills: 5, INJECT 1,000MCG EVERY MONTH, Pharmacy: [id number] Start Date: 10/15/21 Status: Ordered esomeprazole 40 mg oral delayed release capsule Start: 04/21/23 7:14:00 AM EST, 1 cap, PO, Daily, Disp# 90 cap, Refills: 1, Pharmacy: [facility] Start Date: 04/21/23 Status: Ordered famotidine 20 mg oral tablet Start: 05/27/22 11:29:00 AM EDT, 2 tab, PO, bid, Disp# 360 tab, Refills: 1, Pharmacy: [facility] Start Date: 05/27/22 Stop Date: 11/23/22 Status: Ordered FLUoxetine 10 mg oral capsule Start: 10/07/23 9:41:00 AM EDT, 1 cap, PO, Daily, Disp# 30 cap, Refills: 6, Pharmacy: [facility] Start Date: 10/07/23 Status: Ordered hydrALAZINE 10 mg oral tablet Start: 08/27/22 8:19:00 AM EDT, 1 tab, PO, bid, Disp# 180 tab, Refills: 3, for BLOOD PRESSURE, Pharmacy: [facility] Start Date: 08/27/22 Status: Ordered hydrOXYzine hydrochloride 10 mg oral tablet Start: 05/30/23 7:53:00 AM EDT, 1 tab, PO, bid, Disp# 180 tab, Refills: 1, PRN: NEEDED FOR ANXIETY, Pharmacy: [facility] Start Date: 05/30/23 Status: Ordered levothyroxine 50 mcg (0.05 mg) oral tablet Start: 06/30/21 4:51:00 PM EDT, See Instructions, Disp# 34 tab, Refills: 3, 1 tab PO Daily for 6 days, then 2 po daily on one day of week, Note to Pharmacy: Please cancel rx for 25 mcg once daily, Pharmacy: [facility] 2229 Start Date: 06/30/21 Status: Ordered Lexapro 10 mg oral tablet Start: 06/09/21 5:50:00 PM EDT, 1 tab, PO, Daily, Disp# 30 tab, Refills: 6, Pharmacy: [facility] 2229 Start Date: 06/09/21 Status: Ordered Lidocaine Viscous 2% mucous membrane solution Start: 05/27/22 11:26:00 AM EDT, 5 mL, topical, ac, Disp# 100 mL, Refills: 1, PRN: as needed for mouth sore pain, Pharmacy: [facility] 2229 Start Date: 05/27/22 Stop Date: 07/08/22 Status: Ordered metoprolol succinate 25 mg oral tablet, extended release Start: 05/07/21 10:02:00 AM EST, 1 tab, PO, Daily, Disp# 30 tab, Refills: 5, Pharmacy: [facility] 2229 Start Date: 05/07/21 Status: Ordered ondansetron 4 mg oral tablet See Instructions, Disp# 270 tab, Refills: 0, TAKE 1 TABLET BY MOUTH EVERY 8 HOURS, Pharmacy: [facility] [id number] Start Date: 07/11/20 Status: Ordered pantoprazole 40 mg oral delayed release tablet Start: 09/23/23 7:25:00 AM EDT, See Instructions, Disp# 90 tab, Refills: 0, TAKE 1 TABLET BY MOUTH EVERY DAY, Note to Pharmacy: Pt will need an appt for further refills., Pharmacy: [facility] Start Date: 09/23/23 Status: Ordered rOPINIRole 4 mg oral tablet Start: 07/06/23 8:00:00 AM EDT, 1 tab, PO, qhs, Disp# 30 tab, Refills: 5, Pharmacy: [facility] Start Date: 07/06/23 Status: Ordered simvastatin 40 mg oral tablet Start: 08/30/22 5:20:00 PM EDT, 1 tab, PO, qPM, Disp# 90 tab, Refills: 3, Note to Pharmacy: D/C 20 mgdose, Pharmacy: [facility] 2229 Start Date: 08/30/22 Stop Date: 08/25/23 Status: Ordered sucralfate 1 g oral tablet Start: 05/27/22 11:24:00 AM EDT, 1 tab, PO, ac and hs, Disp# 120 tab, Refills: 1, on an empty stomach, Pharmacy: [facility] Start Date: 05/27/22 Stop Date: 07/26/22 Status: Ordered valsartan 320 mg oral tablet See Instructions, Disp# 90 tab, Refills: 3, TAKE 1 TABLET BY MOUTH EVERY DAY, Pharmacy: [id number] Start Date: 05/12/21 Status: Ordered Vitamin D3 50,000 intl units (1250 mcg) oral capsule Start: 06/15/20 9:37:00 AM EDT, 1 cap, PO, q7days, Disp# 8 cap, [id number] Start Date: 06/15/20 Stop Date: 08/10/20 Status: Ordered Voltaren 1% topical gel Start: 05/08/18 8:59:00 AM EDT, 1 appl, topical, qid, Disp# 100 g, Refills: 2, not to exceed 16 grams/day/single joint of lower extremities, PRN: Pain, [id number] Start Date: 05/08/18 Stop Date: 08/06/18 Status: Ordered warfarin 3 mg oral tablet Start: 09/14/23 5:38:00 PM EDT, 2 tab, PO, Daily, Disp# 90 tab, Refills: 2, Pharmacy: [facility] Start Date: 09/14/23 Status: Ordered Mental Status 10/07/23 Barriers to Learning one year None evide nt Mandatory Health Literacy Documentation Yes Health Literacy Communication Barriers N ever Primary Language Turkish Problem List Condition Confirmation Course Effective Dates [...] Effective Dates Health Status Clinical Service Informant Mild persistent reactive airway disease without complication Discharge Diagnosis 10/06/23 Non-Specified HTN (hypertension) Discharge Diagnosis 10/06/23 Non-Specified Aortic heart murmur Discharge Diagnosis 10/06/23 Non-Specified Anxious depression Discharge Diagnosis 10/06/23 Non-Specified Balance problem Discharge Diagnosis 10/06/23 Non-Specified Benign essential tremor Discharge Diagnosis 10/06/23 Non-Specified Chest tightness Discharge Diagnosis 10/06/23 Non-Specified Procedures Procedure Date Related Diagnosis Body [...] of gastroparesis or rapid gastric emptying 3[facility] Impression: 1. LA Grade D reflux esophagitis [...] malignancy. 1 year screening is recommended. 9[facility] Impression: 1. No acute cardiopulmonary findings 10[facility] Impression: 1. Therre is no hemorrhage, mass effect, or evidence of acute territorial eschemia by CT criteria 2. Unremarkable CT angiogram of the brain 3. Unremarkable CT angiogram of the neck 11BRAIN MRI WITHOUT CONTRAST IMPRESSION: No significant change compared to the prior study. No acute intracranial abnormality. 12[facility] Video swallow by speech path [...] palpable abnormality. 17Cardiomegaly without acute process. 18[facility] Impression: 1. Mild esophageal dysmotility 2. Postoperative [...] chronic interstitial thickening. No acute findings. 26[facility] Stomach, antrum/body: 1. Mild chronic gastritis with [...] MR & TR; LA mildly dilated 30[facility] Impression: 1. No acute cardiopulmonary findings 31Pathology [...] NO FACIAL FRACTURE IDENTIFIED BY RADIOGRAPHY. 34[facility] Impression: 1. No acute fracture or radiopaque foreign body within the left hand 35[facility] Impression: 1. One 5 mm polyp in the descending colon. Resected and retrieved 2. Non bleeding internal hemorrhoids 36tubular adenoma 37[facility] Impression: 1. The spirometry reveals mild obstruction [...] Most recent to oldest [Reference Range]: 1 Heart Rate 74 bpm (10/07/23 9:19 AM) Respiratory Rate 18 br/min (10/07/23 9:19 AM) Blood Pressure 112/80mmHg (10/07/23 9:19 AM) Cuff Pulse Pressure 32 mmHg (10/07/23 9:19 AM) BP Location # 1 Left Arm (10/07/23 9:19 AM) Social History Social History Type Response Smoking Status Never smoked cigaret padmini Sex Female Sex Representation Female (finding) [facility] Outpt Note * MD Salazar, Cierra Burrows: PERFORM Event Display: [facility] Outpt Note Authored Date: [id number] Chief Complaint Check up, feeling overwhelmed with all her health issues History of Present Illness * This patient is being followed longitudinally for chronic serious medical problems by Dr. Cierra Lincoln. Their most recent visitwith Dr. Lincoln:09/02/23. Here for recheckoffollowing concerns : 1) Chest pain - she is still getting chest tightness & left shoulder pain. She gets it a few times per week. It is not getting any worse. 2) AFib- she is not having any problems with palpitations. No bleeding or recent falls. 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 She felt that he told her that it was also due to normal pressure hydrocephalus. He talked to her about getting a shunt, which scared her. She does have return visit, but did not want to try taking Sinemet. However, it really bothers her that "I can't walk." 4) Adjustment d/o w/depressed mood - she admits that she is depressed. At times, wonders about "letting all my problems go." She means that she wonders whether she should just stop all of her meds &quit going to doctors. She would never try to kill or hurt herself. Herenergyis poor. Review of Systems Review of Systems- Constitutional: +fatigue, nochanges in weight. HEENT: no vision changes, or sinus congestion. Respiratory: no cough, +SOB, or wheezing. Cardiac: +chest pain, nopalpitations or pedal edema. GI: no abdominal pain, vomiting or change in bowel habits. : no dysuria. Neurologic: no headaches. Physical Exam Vitals & Measurements HR:74(Monitored) RR:18 BP:112/80 SpO2:98% PHQ2 Data(Data Documented on:10/07/2023 09:19) Emotional health assessment NEGATIVE PE : Alert, in NAD. HEENT - PERRL. TM's - clear. Nares - clear. Oropharynx - normal. Neck - supple, without thyromegaly or lymphadenopathy. Lungs - clear, with good breath sounds bilaterally. Heart - RRR. No pedal edema. Abdomen - +BS, soft, NT without HSM or mass. Neuro - alert & oriented, speech & cognition normal. Skin - warm & dry. Psych - affect appropriate. Assessment/Plan 1.Chest tightness STATUS : chronic, stable. DATA : hx & exam reviewed. GOAL : evaluate& txcauseofchestpain. Maintain euvolemia, stable cardiac rhythm. PLAN : she willbe establishing with cardiology in next fewweeks. She needsstress test,butwill need toinvestigatewhen thiscanbe done,inconjunction withher PE/anticoagulation. 2.Aortic heart murmur STATUS: Chronic stable. DATA: hx & examreviewed. GOAL: evaluate& tx causeof murmur. PLAN: murmurwas muchlessprominentontoday'svisit.[place] scheduledon[place]17.Cont current monitoring. 3.HTN (hypertension) Status : chronic, controlled. Data : BP readings reviewed. Goal : maintain normal BP. Plan : continue current BPmeds. Hadstableelectrolytes & renal function done in 07/21. 4.Balance problem STATUS: Chronic, worse. DATA: hx, exam& neuronotereviewed. GOAL: evaluate& tx causeofher neuro sx. PLAN: discussedthat in hisnote,hementionednormal pressurehydrocephalus as something jerrell ruledout, notasdefinitedx.Discussedparkinsonism & use of Sinemetfor this. 5.Anxious depression Status : chronic, worse. Data : hx reviewed. Goal : achieve&maintain remission. Plan : thankfully, sheconvincinglydeniesSI.Butwouldsuspect thisisexacerbating all ofherotherproblems.Shequitgoingtopsychiatry &quittaking hermedsfor unclearreasons.Discussed, will start Fluoxetine 10mg daily. GISSELL. Phone follow up in 3-4 weeks. 6.Benign essential tremor STATUS: Chronic, worse. DATA: hx, exam& neuronotereviewed. GOAL: evaluate& tx causeofher tremor. PLAN: Discussedparkinsonism & use of Sinemetfor this. 7.Mild persistent reactive airway disease without complication STATUS: Chronic, stable. DATA: hx & examreviewed. GOAL: control allergic sx.Maintain respiratory stability. PLAN: ifallofhrcardiac work up provesto benegative,may needtoconsiderpulm eval. Return [id number]. Time:Total time spent with this patient on day of evaluation including chart review, ordering, education and coordination of care elements: 42_ minutes Problem List/Past Medical History Ongoing Adjustment [...] bursitis Poor balance Urinary and fecal incontinence Urinary and fecal incontinence Weight disorder Resolved [...] X-ray| Service Date: 08/30/2016Hand X-ray| Service Date: 07/01/2017Colonoscopy| Service Date: 01/08/2016Spirometry| Service Date: 11/25/2015Paraesophageal hernia| [...] Date: 1989Excision of ganglion cystOral surgery Medications amLODIPine(amLODIPine 10 mg oral tablet), 1 tab, PO, Daily cholecalciferol(Vitamin D3 50,000 intl units (1250 mcg) oral capsule), [address]267 Int_Unit= 1 cap, PO, q7days cyanocobalamin(cyanocobalamin 1000 [...] valsartan(valsartan 320 mg oral tablet), See Instructions warfarin(warfarin 3 mg oral tablet), 6 mg= [...] Vaccine Date Status SARS-CoV-2 (COVID-19) mRNA-vacc - [id number] 12/15/2022 Recorded zoster vaccine, inactivated 11/13/2022 Recorded [...] Screening due08/20/22and every 731day Adult Influenza Vaccine due08/28/23and every 1year Due Adult COVID-19 Vaccination due10/07/23Unknown Frequency Adult Social Determinants of Health Screening due10/07/23Unknown Frequency Adult Tdap/Td Vaccine due10/07/23Unknown Frequency Medicare Annual Wellness Visit due10/07/23and every 1year Pneumococcal Vaccine Older Adults due10/07/23One-time only Shingles Vaccine due10/07/23One-time only Due In Future Body Mass Index not due until09/02/24and every day Satisfied(in the past 1 year) Satisfied Body Mass Index on04/25/23.Satisfied by MAT Handy, Ashley Lipid Screening on07/27/23.Satisfied by Contributor_system, [id number] Shingles Vaccine on11/13/22.Satisfied by MD Lincoln Amy L Electronic Signature on File Electronically Reviewed/Signed by: Cierra Lincoln MD Author Signature Dt/Tm:10/07/2023 01:04 PM [facility] [address] [place] [address] [facility] Patient Care team information Care Team Personnel Name: GATITO Breaux Tara Position: Nurse Pract - Family Med Member Role: Lifetime Relationship Address: [address] [place] [id number] [place] Name: MD Lincoln Amy L Position: Physician - Family Med Member Role: Primary Care Provider Address: [address] [place] [id number] [place] Name: GATITO Dean Shari A Position: Nurse Pract - Family Med Member Role: Lifetime Relationship Address: [address] [place] [address], [address] Care Team Related Persons Name: OKSANA ROSALES Name: KOLBY ROSALES
--- OUTSIDE RECORDS SUMMARY | 2023-11-04 10:46 | External Medical Summary | Continuity of Care Document ---
Author Name Unknown Organization [facility] [address] Address [address] [place], [place] [id number] Care Team Providers Care Ditch Rider Name Role Phone Cierra Lincoln Primary Care Physician [phone] [facility]counter [id number] Date(s): 10/07/23 - 10/07/23 [facility] [address] [facility] [address] [facility] [address] [place], [place] [phone] Encounter Diagnosis Other pulmonary embolism without acute cor pulmonale(Final) - Discharge Disposition: Home or Self Care [...] Status Refusal Reason SARS-CoV-2 (COVID-19) mRNA-vacc - [id number] 12/15/22 Recorded zoster vaccine, inactivated 11/13/22 Recorded [...] Daily, Disp# 90 tab, Refills: 3, Pharmacy: [id number] Start Date: 09/21/23 Status: Ordered BD 1 mL Allergy Syringe 28G x 1/2" Start: 06/25/19 2:27:00 PM EDT, See Instructions, Disp# 1 kit, Refills: 5, to be used to adminster Vitamin B12 injection, Pharmacy: [id number] Start Date: 06/25/19 Status: Ordered BD TB SYRINGE 27GX1/2" BD TB SYRINGE 27GX1/2", See Instructions, Disp# 1 syringe, Refills: 5, TO BE USED TO ADMINSTER VITAMIN B12 INJECTION, [facility]acy [id number] Start Date: 07/11/20 Status: Ordered BD TB SYRINGE 27GX1/2" Start: 10/15/21 8:14:00 PM EDT, BD TB SYRINGE 27GX1/2", See Instructions, Disp# 1 unknown unit, Refills: 5, TO BE USED TO ADMINSTER VITAMIN B12 INJECTION, [facility]acy [id number] Start Date: 10/15/21 Status: Ordered BD TB SYRINGE 27GX1/2" Start: 06/25/19 2:27:00 PM EDT, See Instructions, Disp# 1, Refills: 5, TO BE USED TO ADMINSTER VITAMIN B12 INJECTION, Pharmacy: [facility]/pharmacy #[id number], TO BE USED TO ADMINSTER VITAMIN B12 INJECTION Start Date: 06/25/19 Status: Ordered cyanocobalamin 1000 mcg/mL injectable solution Start: 10/15/21 8:14:00 PM EDT, See Instructions, Disp# 3 mL, Refills: 5, INJECT 1,000MCG EVERY MONTH, Pharmacy: [id number] Start Date: 10/15/21 Status: Ordered esomeprazole 40 mg oral delayed release capsule Start: 04/21/23 7:14:00 AM EST, 1 cap, PO, Daily, Disp# 90 cap, Refills: 1, Pharmacy: [facility] Start Date: 04/21/23 Status: Ordered famotidine 20 mg oral tablet Start: 05/27/22 11:29:00 AM EDT, 2 tab, PO, bid, Disp# 360 tab, Refills: 1, Pharmacy: [facility] Start Date: 05/27/22 Stop Date: 11/23/22 Status: Ordered FLUoxetine 10 mg oral capsule Start: 10/07/23 9:41:00 AM EDT, 1 cap, PO, Daily, Disp# 30 cap, Refills: 6, Pharmacy: [facility] Start Date: 10/07/23 Status: Ordered hydrALAZINE 10 mg oral tablet Start: 08/27/22 8:19:00 AM EDT, 1 tab, PO, bid, Disp# 180 tab, Refills: 3, for BLOOD PRESSURE, Pharmacy: [facility] Start Date: 08/27/22 Status: Ordered hydrOXYzine hydrochloride 10 mg oral tablet Start: 05/30/23 7:53:00 AM EDT, 1 tab, PO, bid, Disp# 180 tab, Refills: 1, PRN: NEEDED FOR ANXIETY, Pharmacy: [facility] Start Date: 05/30/23 Status: Ordered levothyroxine 50 mcg (0.05 mg) oral tablet Start: 06/30/21 4:51:00 PM EDT, See Instructions, Disp# 34 tab, Refills: 3, 1 tab PO Daily for 6 days, then 2 po daily on one day of week, Note to Pharmacy: Please cancel rx for 25 mcg once daily, Pharmacy: [facility] Start Date: 06/30/21 Status: Ordered Lexapro 10 mg oral tablet Start: 06/09/21 5:50:00 PM EDT, 1 tab, PO, Daily, Disp# 30 tab, Refills: 6, Pharmacy: [facility] Start Date: 06/09/21 Status: Ordered Lidocaine Viscous 2% mucous membrane solution Start: 05/27/22 11:26:00 AM EDT, 5 mL, topical, ac, Disp# 100 mL, Refills: 1, PRN: as needed for mouth sore pain, Pharmacy: [facility] Start Date: 05/27/22 Stop Date: 07/08/22 Status: Ordered metoprolol succinate 25 mg oral tablet, extended release Start: 05/07/21 10:02:00 AM EST, 1 tab, PO, Daily, Disp# 30 tab, Refills: 5, Pharmacy: [facility] Start Date: 05/07/21 Status: Ordered ondansetron 4 mg oral tablet See Instructions, Disp# 270 tab, Refills: 0, TAKE 1 TABLET BY MOUTH EVERY 8 HOURS, Pharmacy: [facility] Start Date: 07/11/20 Status: Ordered pantoprazole 40 mg oral delayed release tablet Start: 09/23/23 7:25:00 AM EDT, See Instructions, Disp# 90 tab, Refills: 0, TAKE 1 TABLET BY MOUTH EVERY DAY, Note to Pharmacy: Pt will need an appt for further refills., Pharmacy: [facility] Start Date: 09/23/23 Status: Ordered rOPINIRole 4 mg oral tablet Start: 07/06/23 8:00:00 AM EDT, 1 tab, PO, qhs, Disp# 30 tab, Refills: 5, Pharmacy: [facility] Start Date: 07/06/23 Status: Ordered simvastatin 40 mg oral tablet Start: 08/30/22 5:20:00 PM EDT, 1 tab, PO, qPM, Disp# 90 tab, Refills: 3, Note to Pharmacy: D/C 20 mgdose, Pharmacy: [facility] Start Date: 08/30/22 Stop Date: 08/25/23 Status: Ordered sucralfate 1 g oral tablet Start: 05/27/22 11:24:00 AM EDT, 1 tab, PO, ac and hs, Disp# 120 tab, Refills: 1, on an empty stomach, Pharmacy: [facility] Start Date: 05/27/22 Stop Date: 07/26/22 Status: Ordered valsartan 320 mg oral tablet See Instructions, Disp# 90 tab, Refills: 3, TAKE 1 TABLET BY MOUTH EVERY DAY, Pharmacy: [facility] Start Date: 05/12/21 Status: Ordered Vitamin D3 50,000 intl units (1250 mcg) oral capsule Start: 06/15/20 9:37:00 AM EDT, 1 cap, PO, q7days, Disp# 8 cap, [id number] Start Date: 06/15/20 Stop Date: 08/10/20 Status: Ordered Voltaren 1% topical gel Start: 05/08/18 8:59:00 AM EDT, 1 appl, topical, qid, Disp# 100 g, Refills: 2, not to exceed 16 grams/day/single joint of lower extremities, PRN: Pain, Pharmacy: [facility] #[id number] Start Date: 05/08/18 Stop Date: 08/06/18 Status: Ordered warfarin 3 mg oral tablet Start: 09/14/23 5:38:00 PM EDT, 2 tab, PO, Daily, Disp# 90 tab, Refills: 2, Pharmacy: [facility] Start Date: 09/14/23 [...] evidence of gastroparesis or rapid [facility]: 1. LA Grade D reflux esophagitis [...] malignancy. 1 year screening is recommended. 9[facility] Impression: 1. No acute cardiopulmonary findings 10[facility] Impression: 1. Therre is no hemorrhage, mass effect, or evidence of acute territorial eschemia by CT criteria 2. Unremarkable CT angiogram of the brain 3. Unremarkable CT angiogram of the neck 11BRAIN MRI WITHOUT CONTRAST IMPRESSION: No significant change compared to the prior study. No acute intracranial abnormality. 12[facility] Video swallow by speech path [...] palpable abnormality. 17Cardiomegaly without acute process. 18[facility] Impression: 1. Mild esophageal dysmotility 2. [...] chronic interstitial thickening. No acute findings. 26[facility] Stomach, antrum/body: 1. Mild chronic gastritis [...] MR & TR; LA mildly dilated 30[facility] Impression: 1. No acute cardiopulmonary findings [...] NO FACIAL FRACTURE IDENTIFIED BY RADIOGRAPHY. 34[facility] Impression: 1. No acute fracture or radiopaque foreign body within the left hand 35[facility] Impression: 1. One 5 mm polyp in the descending colon. Resected and retrieved 2. Non bleeding internal hemorrhoids 36tubular adenoma 37[facility] Impression: 1. The spirometry reveals mild [...] 44left wrist Results Laboratory List Name Date Prothrombin Time w/ INR (PROTIME WITH IN R) 10/07/23 Most recent to oldest [Reference Range]: 1 INR [0.9-1.1] 1.3 1 *HI* (10/07/23 9:51 AM) PT [12.0-14.2 seconds] 16.3 seconds *HI* (10/07/23 9:51 AM) 1Result Comment: Suggested therapeutic range for low-intensity Coumadin therapy for venous thromboembolism is INR 2.0-3.0 (ex: atrial fibrillation, history of TIA/stroke). For high risk patients, the suggested therapeutic range is INR 2.5-3.5 (ex: mechanical prosthetic valves). Testing Performed By: Dept of Pathology [facility], [address] [place] [address] Social History Social History Type Response Smoking Status Never smoked cigaret padmini Sex Female Sex Representation Female (finding) Patient Care team information Care Team Personnel Name: GATITO Breaux Tara Position: Nurse Pract - Family Med Member Role: Lifetime Relationship Address: [address] [place] [id number] [place] Name: MD Salazar, Cierra Burrows Position: Physician - Family Med Member Role: Primary Care Provider Address: [address] [place] [address] 1 [place] [address] [place] Name: GATITO Dean Shari A Position: Nurse Pract - Family Med Member Role: Lifetime Relationship Address: [address] [place] [id number] [place] Care Team Related Persons Name: OKSANA ROSALES Name: KOLBY ROSALES
--- OUTSIDE RECORDS SUMMARY | 2023-11-04 10:46 | External Medical Summary | Continuity of Care Document ---
Author Name Unknown Organization [address] [id number] Care Team Providers Care Pilot Instructor Name Role Phone Cierra Lincoln Primary Care Physician [phone] Encounter [facility] [id number] Date(s): 10/12/23 - 10/12/[address] [address] [phone] Encounter Diagnosis Esophagitis, reflux(Discharge Diagnosis) - 10/12/23 Erosive esophagitis(Discharge Diagnosis) - 10/12/23 Discharge Disposition: Home or Self Care Attending Physician: MD Sidhu Brian D Allergies, Adverse [...] any opiate Assessment and Plan Extracted from: Title:GI follow up Author:MD Sidhu Brian D Da te:10/12/23 Patient: MIGUEL ROSALES Age: 72 years Sex: Female : 1950 Associated Diagnoses: None Author: MD Sidhu Brian D Chief Complaint 10/12/2023 14:39 EDT Yearly follow up. History of Present Illness 03/20/20 Consult Kell GomezA-C for GERD and nausea. Reviewed summary of 2016 EGD with perez with significant gerd correlating with chest pain, and large HH. [place] [facility]. Reviewed EGD report [address] Laws at [facility] for dysphagia which showed grade A esophagitis, mild schatzis ring dilated with 54F Savarya, medium food residue in stomach, antral erythema path mild gastritis with intestinal metaplasia, neg for H.pylori, Reviewed 05/2017 barium swallow esophageal dysmotility c/w presbyesophagus, small hiatal hernia, s/p Steve, and she could not ingest the barium pill. Repeat barium swallow 07/2017 report reviewed mild esophageal dysmotility, s/p steve and no reflux Reviwed colonscopy done at [facility] 12/2015 shwoing tubular adenoma colon polyp. Reviewed US limited for RUQ mass showing 4.5 cm ventral hernia. Reviewed [facility] OV with Kell Ledesma in uncontrolled GERD noted and protonix 40 mg bid suggested and also nausea being treated with Zofran. Pt also with hx of PE being managed on apixaban. Pt has been taking zofran and protoonix for several years. She states she continued on protonix after the steve. She states 09/2019 she had pneumonia and pulm embolus and states reflux and GERD worse. She states she has burning in substernal and up in back of throat. Has mucous and jaw pain. She feels fluid in back of throat and will cough and dry heave. She has some symptoms every day but will get severe attacks 4 days a week. She is not sure is protonix 40 mg bid ac is any better than once daily. Evening may be worse. Feels better with head elevated in positiion on right it helps some. Pt has gained 178 to 205 over 5 years. She has coughing with eating but no definite esophageal dysphagia (no food catching). 04/18/2020 This is a telephone visit. Pt had appointment scheduled by scheduling. I informed patient of billable nature of visit and any co-pays apply. The nurse called patient at and did medicine reconciliation then transferred the phone call to me. I identified the patient with name and date of . The call was not related to a visit or procedure that occurred within 7 days prior. I am at [facility] and patient at home located in [place]. I spent 18 minutes speaking with the patient. Reviewed report of EGD done by Dr Keen at [facility] Grade B esophagitis noted and medium amount of food in gastric body. She thinks she ate normal meal no later then about 6 pm. Reviewed video fluoro swallow study by speech path done 04/11/2020 normal. 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 GERD is better overall but still some burning and choking. Continues on protonix bid. Shortness of breathe and wheezing improved. Pt states blood pressure fluctuating wildly. 08/05/2022 DATA reviewed: COLO 12/2020 Case 3 polyps TC/AC 3-5 mm removed path tubular adenoma, small internal hemorrhoids. COLO to TI 05/2021 Dr Sidhu at [facility] medium IH, poor prep in places, repeat colo 12/2023. PCP OV DR Yarbrough for GERD EGD 07/07/2022 at [facility] with DR Washington grade D esophagitis, excessive fluid in fundus/body/antrum. Takes sucralfate before each meal and at bedtime. Takes Zofran prn Nexium 40 mg once a day in am after a meal. Also on protonix 40 mg before breakast ant before supper. Take famotidine 2 of the 20 mg tabs in mornning and at bedtime. Burning in chest and throat and mouth mostly in evening. Sometimes early evening and sometimes will wake up at night. Does a lot of gagging but does not vomit. She has head of bed elevated about 4 inches. Wedge pillow now and again. Chronic dysphagia. Has trouble with lot of foods such as lettuce and bread. 10/11/2022 DATA reviewed: Labs by me 08/30/2022 gastrin 359 H (upper normal 100) Gastric empty study ordered by me 09/2022 normal. Labs by others 07/27/2023 CMP gluc 130, CBC WBC 10.4 H, lipids chol 269 H, trigs 216 H, ER visits 07/2023 for chest pain and diagnosed with pulm emboli Labs from ER 07/2023 CBC nl, CMP gluc 134 H, alk phos 108 H, OV DR Lincoln 10/07/2023 afib, tremor, HTN, depression, balance problems. She states she had the pulmonary emboli while Elliquis, She states recent heart murmur and may have normal pressure hydrocephalus. She states she has to really watch what she eats and when she eats it to help control GERD. She drinks mildkshakes and ice cream to help control gerd but can still can get flares. She takes protonix 40 mg once a day opposite of Esomeprazole 40 mg once a day, famotidine 40 mg bid an sucralfate prn (she takes if mouth is sore. Head of bed is elevated. Review of Systems Constitutional: Fatigue. Eye: Negative. Ear/Nose/Mouth/Throat: Negative. Respiratory: Shortness of breath, Cough, Wheezing. Cardiovascular: Peripheral edema. Gastrointestinal: Negative except as documented in history of present illness. Genitourinary: Negative. Hematology/Lymphatics: Negative. Endocrine: Negative. Immunologic: Negative. Musculoskeletal: Joint pain, muscle weakness. Integumentary: Negative. Neurologic: Abnormal balance. Psychiatric: Anxiety, Depression. Health Status Allergies: Allergic Reactions (Selected) Severe Allergy Not found in Search- Severe sensitivity to any opiate. Severity Not Documented Nitroglyn E-R- Vomiting, flushing and headache. Potassium chloride- Shortness of breath, pain in arm and iv. Nonallergic Reactions (Selected) Severity Not Documented Benzodiazepines- Addiction. Latex- Contact rash.. Current medications: (Selected) Prescriptions Prescribed BD 1 mL Allergy Syringe 28G x 1/2": See Instructions, to be used to adminster Vitamin B12 injection, 1 kit, 5 Refill(s) BD TB SYRINGE 27GX1/2": See Instructions, TO BE USED TO ADMINSTER VITAMIN B12 INJECTION, 1 syringe, 5 Refill(s) BD TB SYRINGE 27GX1/2": See Instructions, TO BE USED TO ADMINSTER VITAMIN B12 INJECTION, 1 syringe, 5 Refill(s) BD TB SYRINGE 27GX1/2": See Instructions, TO BE USED TO ADMINSTER VITAMIN B12 INJECTION, 1 unknown unit, 5 Refill(s) FLUoxetine 10 mg oral capsule: 1 cap, PO, Daily, 30 cap, 6 Refill(s) Lexapro 10 mg oral tablet: 1 tab, PO, Daily, 30 tab, 6 Refill(s) Lidocaine Viscous 2% mucous membrane solution: 5 mL, topical, ac, for 21 day, PRN: as needed for mouth sore pain, 100 mL, 1 Refill(s) Vitamin D3 50,000 intl units (1250 mcg) oral capsule: 1 cap, PO, q7days, for 8 weeks, 8 cap Voltaren 1% topical gel: 1 appl, topical, qid, for 30 day, not to exceed 16 grams/day/single joint of lower extremities, PRN: Pain, 100 g, 2 Refill(s) amLODIPine 10 mg oral tablet: 1 tab, PO, Daily, 90 tab, 3 Refill(s) cyanocobalamin 1000 mcg/mL injectable solution: See Instructions, INJECT 1,000MCG EVERY MONTH, 3 mL, 5 Refill(s) esomeprazole 40 mg oral delayed release capsule: 1 cap, PO, Daily, 90 cap, 1 Refill(s) famotidine 20 mg oral tablet: 2 tab, PO, bid, for 90 day, 360 tab, 1 Refill(s) hydrALAZINE 10 mg oral tablet: 1 tab, PO, bid, for BLOOD PRESSURE, 180 tab, 3 Refill(s) hydrOXYzine hydrochloride 10 mg oral tablet: 1 tab, PO, bid, PRN: NEEDED FOR ANXIETY, 180 tab, 1 Refill(s) levothyroxine 50 mcg (0.05 mg) oral tablet: See Instructions, 1 tab PO Daily for 6 days, then 2 po daily on one day of week, 34 tab, 3 Refill(s) metoprolol succinate 25 mg oral tablet, extended release: 1 tab, PO, Daily, 30 tab, 5 Refill(s) ondansetron 4 mg oral tablet: See Instructions, TAKE 1 TABLET BY MOUTH EVERY 8 HOURS, 270 tab, 0 Refill(s) pantoprazole 40 mg oral delayed release tablet: See Instructions, TAKE 1 TABLET BY MOUTH EVERY DAY, 90 tab, 0 Refill(s) rOPINIRole 4 mg oral tablet: 1 tab, PO, qhs, 30 tab, 5 Refill(s) simvastatin 40 mg oral tablet: 1 tab, PO, qPM, for 90 day, 90 tab, 3 Refill(s) sucralfate 1 g oral tablet: 1 tab, PO, ac and hs, for 30 day, on an empty stomach, 120 tab, 1 Refill(s) valsartan 320 mg oral tablet: See Instructions, TAKE 1 TABLET BY MOUTH EVERY DAY, 90 tab, 3 Refill(s) warfarin 3 mg oral tablet: 2 tab, PO, Daily, 90 tab, 2 Refill(s). Problem list: Medical Adjustment disorder with depressed mood / SNOMED CT 89088008 / Confirmed Ankle edema / SNOMED CT 92040889 / Confirmed Annual physical exam / SNOMED CT 017841002 / Confirmed Anxiety / SNOMED CT 18914633 / Confirmed Anxious depression / SNOMED CT 787732512 / Confirmed Aortic heart murmur / SNOMED CT 308529518 / Confirmed Balance problem / SNOMED CT 5857521104 / Confirmed Benign essential tremor / SNOMED CT 8269262526 / Confirmed Benzodiazepine (tranquilizer) overdose / SNOMED CT 695924665 / Confirmed Chest tightness / SNOMED CT 913650682 / Confirmed Chronic cough / SNOMED CT 236384599 / Confirmed Dysphagia / SNOMED CT 79020182 / Confirmed Edema / SNOMED CT 222829739 / Confirmed Encounter for PPD test / SNOMED CT 308616032 / Confirmed Endometrial thickening on ultrasound / SNOMED CT 5906704603 / Confirmed Esophagitis, reflux / SNOMED CT 469619087 / Confirmed Facial tic / SNOMED CT 892793243 / Confirmed Fatigue / SNOMED CT 525467626 / Confirmed Gastroparesis / SNOMED CT 001317512 / Confirmed Generalized weakness / SNOMED CT 31519164 / Confirmed Hiatal hernia with GERD and esophagitis / SNOMED CT 5719181223 / Confirmed HTN (hypertension) / SNOMED CT 8032426375 / Confirmed HTN (hypertension) / SNOMED CT 9730733787 / Confirmed Hypothyroidism / SNOMED CT 13823470 / Confirmed Intestinal metaplasia of gastric cardia / SNOMED CT 7546384261 / Confirmed Left hip pain / SNOMED CT 05400676 / Confirmed Meniscus tear / SNOMED CT 287442221 / Confirmed Mild persistent reactive airway disease without complication / SNOMED CT 9789444311 / Confirmed Nonadherence to medication / SNOMED CT 047816509 / Confirmed Panic disorder / SNOMED CT 0678661272 / Confirmed Pes anserine bursitis / SNOMED CT 241016080 / Confirmed Poor balance / SNOMED CT 576389706 / Confirmed Urinary and fecal incontinence / SNOMED CT 572537038 / Confirmed Urinary and fecal incontinence / SNOMED CT 046800025 / Confirmed Weight disorder / SNOMED CT 626479661 / Confirmed Resolved: Acute dyspnea / SNOMED CT 153879892 Resolved: Acute head injury / SNOMED CT 204016059 Resolved: Acute pulmonary embolus / SNOMED CT 7655683302 Resolved: Bereavement / SNOMED CT 193813809 Resolved: Cerebral concussion / SNOMED CT 3195522711 Resolved: Chest discomfort / SNOMED CT 507187486 Resolved: Cough / SNOMED CT 93005902 Resolved: Facial trauma / SNOMED CT 347288092 Resolved: Fever / SNOMED CT 7871950900 Resolved: Left arm pain / SNOMED CT 050862967 Resolved: Left knee pain / SNOMED CT 27798665 Resolved: Needlestick injury accident / SNOMED CT 981510589 Resolved: Needlestick injury of finger / SNOMED CT 548687675 Resolved: Syncope, vasovagal / SNOMED CT 8240570983 Canceled: Acute COVID-19 / SNOMED CT 3324146149 Canceled: Acute UTI / SNOMED CT 8103769110 Canceled: Benzodiazepine misuse / SNOMED CT 5057062258 Canceled: Breast cancer screening by mammogram / SNOMED CT 655948831 Canceled: Chest tightness / SNOMED CT 328861161 Canceled: Combined urinary and fecal incontinence in child / SNOMED CT 2259427050 Canceled: Cough / SNOMED CT 75779334 Canceled: GERD (gastroesophageal reflux disease) / SNOMED CT 924238660 Canceled: GERD without esophagitis / SNOMED CT 8115467566 Canceled: Nausea / SNOMED CT 4428350952 Canceled: Paraesophageal hernia / SNOMED CT 8575992 Canceled: Pre-op exam / SNOMED CT 347463365 Canceled: Recurrent UTI / SNOMED CT 928344021 Canceled: Urgency of urination / SNOMED CT 687835653 All Problems Adjustment disorder with depressed mood / SNOMED CT 64593703 / Confirmed Ankle edema / SNOMED CT 03825612 / Confirmed Annual physical exam / SNOMED CT 114524116 / Confirmed Anxiety / SNOMED CT 05581965 / Confirmed Anxious depression / SNOMED CT 223179445 / Confirmed Aortic heart murmur / SNOMED CT 583219070 / Confirmed Balance problem / SNOMED CT 3552923107 / Confirmed Benign essential tremor / SNOMED CT 9142142930 / Confirmed Benzodiazepine (tranquilizer) overdose / SNOMED CT 436209768 / Confirmed Chest tightness / SNOMED CT 701073275 / Confirmed Chronic cough / SNOMED CT 920355255 / Confirmed Dysphagia / SNOMED CT 47728324 / Confirmed Edema / SNOMED CT 932772656 / Confirmed Encounter for PPD test / SNOMED CT 508191337 / Confirmed Endometrial thickening on ultrasound / SNOMED CT 7986733253 / Confirmed Esophagitis, reflux / SNOMED CT 310191497 / Confirmed Facial tic / SNOMED CT 873483386 / Confirmed Fatigue / SNOMED CT 409103208 / Confirmed Gastroparesis / SNOMED CT 427313542 / Confirmed Generalized weakness / SNOMED CT 61405585 / Confirmed Hiatal hernia with GERD and esophagitis / SNOMED CT 0990710874 / Confirmed HTN (hypertension) / SNOMED CT 8469858898 / Confirmed HTN (hypertension) / SNOMED CT 4736836964 / Confirmed Hypothyroidism / SNOMED CT 48536681 / Confirmed Intestinal metaplasia of gastric cardia / SNOMED CT 5179578258 / Confirmed Left hip pain / SNOMED CT 47594927 / Confirmed Meniscus tear / SNOMED CT 601268714 / Confirmed Mild persistent reactive airway disease without complication / SNOMED CT 3998882161 / Confirmed Nonadherence to medication / SNOMED CT 160528783 / Confirmed Panic disorder / SNOMED CT 8153843967 / Confirmed Pes anserine bursitis / SNOMED CT 066817284 / Confirmed Poor balance / SNOMED CT 428925954 / Confirmed Urinary and fecal incontinence / SNOMED CT 487952998 / Confirmed Urinary and fecal incontinence / SNOMED CT 995956627 / Confirmed Weight disorder / SNOMED CT 201187168 / Confirmed Resolved: Acute dyspnea / SNOMED CT 693570015 Resolved: Acute head injury / SNOMED CT 862306627 Resolved: Acute pulmonary embolus / SNOMED CT 4418764371 Resolved: Bereavement / SNOMED CT 017633182 Resolved: Cerebral concussion / SNOMED CT 4627549159 Resolved: Chest discomfort / SNOMED CT 564306918 Resolved: Cough / SNOMED CT 74238989 Resolved: Facial trauma / SNOMED CT 358824901 Resolved: Fever / SNOMED CT 7875763923 Resolved: Left arm pain / SNOMED CT 948768470 Resolved: Left knee pain / SNOMED CT 82876078 Resolved: Needlestick injury accident / SNOMED CT 864179931 Resolved: Needlestick injury of finger / SNOMED CT 039624231 Resolved: Syncope, vasovagal / SNOMED CT 5913432731 Canceled: Acute COVID-19 / SNOMED CT 2661209173 Canceled: Acute UTI / SNOMED CT 8278776962 Canceled: Benzodiazepine misuse / SNOMED CT 2049981577 Canceled: Breast cancer screening by mammogram / SNOMED CT 638915294 Canceled: Chest tightness / SNOMED CT 387596167 Canceled: Combined urinary and fecal incontinence in child / SNOMED CT 9160148358 Canceled: Cough / SNOMED CT 90317317 Canceled: GERD (gastroesophageal reflux disease) / SNOMED CT 312731684 Canceled: GERD without esophagitis / SNOMED CT 2737080001 Canceled: Nausea / SNOMED CT 8683771279 Canceled: Paraesophageal hernia / SNOMED CT 6045599 Canceled: Pre-op exam / SNOMED CT 784065348 Canceled: Recurrent UTI / SNOMED CT 571759842 Canceled: Urgency of urination / SNOMED CT 000579618. Histories Past Medical History: Resolved Left knee pain (78957842): Resolved. Acute dyspnea (904706141): Resolved. Chest discomfort (919585639): Resolved. Bereavement (539410240): Resolved. Needlestick injury of finger (475529317): Resolved. Syncope, vasovagal (1504432171): Resolved. Facial trauma (829349098): Resolved. Needlestick injury accident (795805625): Resolved. Acute head injury (746531796): Resolved. Cerebral concussion (9749101737): Resolved. Left arm pain (621071215): Resolved. Fever (4283755776): Resolved. Cough (77905793): Resolved. Acute pulmonary embolus (9228443453): Resolved.. Family History: Hypertension Mother Father Sister Brother MGM PGM Respiratory disease Mother Father MGF Alcoholism Father Mother PGM PGF Brother Cancer of colon MGM MGF PGM Stroke MGM Heart attack Father Brother . Procedure history: GASTRIC EMPTYING IMAG STUDY (16410) on 10/13/2022 at 71 Years. Comments: 10/14/2022 12:13 TIFFANY Sidhu MD, Jaswant Stone Tracer remaining was 66% at 1 hour, 35 % at 2 hours and 10% at 4 hours with normals being 30-90%, 30-60% and 10%. 10/14/2022 10:57 TIFFANY Salazar LPN, Linda Normal gastric emptying study without evidence of gastroparesis or rapid gastric emptying Upper GI (gastrointestinal) endoscopy ([id number]) on 07/07/2022 at 71 Years. Comments: 07/08/2022 07:34 TIFFANY Candelaria LPN, Jorge Mckeon [facility] Impression: 1. LA Grade D reflux esophagitis with no bleeding 2. Excessive gastric fluid 3. Normal examined duodenum 4. No specimens collected Colonoscopy ([id number]) on 06/24/2021 at 70 Years. Comments: 06/24/2021 16:50 TIFFANY Lozada LPN, Karli R Internal hemorrhoids. Prep poor in placed obscuring mucosa, particularly in the right colon. The examination was otherwise normal on direct and retroflexion views. No specimens collected. Colonoscopy ([id number]) on 06/24/2021 at 70 Years. Comments: 06/25/2021 20:28 TIFFANY Lincoln MD, Cierra Burrows int. hemorrhoids, poor prep; repeat in 3 yrs due to poor prep Colonoscopy ([id number]) on 01/08/2021 at 70 Years. Comments: 05/19/2021 21:37 TIFFANY Lincoln MD, Amy L path - tubular adenoma X 2; next scope in 3 yrs 05/19/2021 17:12 TIFFANY Lozada LPN, Karli R Three 3 to 5 mm polyps in the transverse colon and in the ascending colon, removed with a cold snare. Resected and retrieved. Non bleeding hemorrhoids. Mammogram ([id number]) on 08/19/2020 at 69 Years. Comments: 08/20/2020 15:30 TIFFANY Lozada LPN, Karli R NO mammographic evidence of malignancy. 1 year screening is recommended. Chest x-ray ([id number]) on 05/27/2020 at 69 Years. Comments: 05/30/2020 09:20 TIFFANY Candelaria LPN, Andrew E [facility] Impression: 1. No acute cardiopulmonary findings CT angio of head/neck (20005) on 05/27/2020 at 69 Years. Comments: 05/30/2020 09:24 TIFFANY Candelaria LPN, Andrew E [facility] Impression: 1. Therre is no hemorrhage, mass effect, or evidence of acute territorial eschemia by CT criteria 2. Unremarkable CT angiogram of the brain 3. Unremarkable CT angiogram of the neck MRI ([id number]) on 05/27/2020 at 69 Years. Comments: 06/09/2020 14:27 TIFFANY Lee LPN, Diah BRAIN MRI WITHOUT CONTRAST IMPRESSION: No significant change compared to the prior study. No acute intracranial abnormality. Videoswallow ([id number]) on 04/11/2020 at 69 Years. Comments: 04/14/2020 06:32 ROSSANA Sidhu MD, Jaswant Stone [facility] Video swallow by speech path normal radiology reading and normal speech path evaluation of swallowing. Upper GI endoscopy ([id number]) on 03/28/2020 at 69 Years. Comments: 04/02/2020 10:48 ROSSANA Salazar LPN, Erin LA Grade B reflux esophagitis. Z-line regular, 35 cm from donald incisors. A medium amount of food (residue) in the stomach. Normal examined duodenum. No specimens collected. Full liquid diet for 1 week Diagnostic hysteroscopy ([id number]) on 01/28/2020 at 69 Years. CXR - Chest X-ray ([id number]) on 11/24/2019 at 69 Years. Comments: 11/26/2019 09:40 TIFFANY Lozada LPN, Karli R No acute process. Hernia repair ([id number]) on 07/20/2018 at 67 Years. Comments: 07/21/2018 13:36 TIFFANY Ledesma PA-C, Jessica A ventral Ultrasound ([id number]) on 05/11/2018 at 67 Years. Comments: 05/12/2018 07:26 TIFFANY Lee LPN, Diah US abdomen limited Impression: A fat-containing nonreducible right upper quandrant abdominal wall hernia. This correspounds to the patient's palpable abnormality. CXR - Chest X-ray ([id number]) on 08/23/2017 at 66 Years. Comments: 08/24/2017 10:07 TIFFANY Lozada LPN, Karli R Cardiomegaly without acute process. Barium swallow ([id number]) on 08/15/2017 at 66 Years. Comments: 08/15/2017 17:03 TIFFANY Candelaria LPN, Andrew E [facility] Impression: 1. Mild esophageal dysmotility 2. Postoperative changes from prior Steve fundoplication 3. No appreciable gastroesophageal reflux MRA of neck ([id number]) on 08/14/2017 at 66 Years. Comments: 08/15/2017 08:36 TIFFANY Lozada LPN, Karli R No significant stenosis within the bilateral common carotid, internal carotid or vertebral arteries. MRI of brain and brain stem with contrast ([id number]) on 08/14/2017 at 66 Years. Comments: 08/15/2017 08:38 TIFFANY Lozada LPN, Karli R 1. No acute intracranial findings. 2. No intracranial mass or pathologic enhancement. 3. Moderate presumed small vessel disease. CT of head ([id number]) on 08/13/2017 at 66 Years. Comments: 08/15/2017 07:51 TIFFANY Lozada LPN, Karli R No acute intracranial findings. CT of cervical spine ([id number]) on 08/13/2017 at 66 Years. Comments: 08/15/2017 07:52 TIFFANY Lozada LPN, Karli R No evidence of acute fracute or traumatic subluxation. CXR - Chest X-ray ([id number]) on 08/13/2017 at 66 Years. Comments: 08/15/2017 07:53 TIFFANY Lozdaa LPN, Karli R Stable mild chronic interstitial thickening. No acute findings. CT angiogram of head, neck and thorax ([id number]) on 08/13/2017 at 66 Years. Comments: 08/15/2017 08:07 TIFFANY Lozada LPN, Karli R No evidence of hemodynamically significant carotid or vertebral artery stenosis. No evidence of dissection. CT of head ([id number]) on 08/13/2017 at 66 Years. Comments: 08/15/2017 08:08 TIFFANY Lozada LPN, Karli R No significant abnormalities. Pathology report ([id number]) on 06/07/2017 at 66 Years. Comments: 06/14/2017 07:44 TIFFANY Candelaria LPN, Andrew E [facility] Stomach, antrum/body: 1. Mild chronic gastritis with intestinal metaplasia 2. Negative for dysplasia and carcinoma 3. H. Pylori immunoperoxidase stain negative Barium swallow ([id number]) on 06/06/2017 at 66 Years. Comments: 06/07/2017 07:40 TIFFANY Lozada LPN, Karli R 1. Dysmotility suggests presbyesophagus. 2. Small hiatal hernia versus postsurgical changes of the gastroesophageal junction from prior Steve. 3. The patient was unable to ingest the barium pill, which was expectorated. Stress echocardiography using dobutamine ([id number]) on 06/06/2017 at 66 Years. Comments: 06/08/2017 20:16 TIFFANY Lincoln MD, Amy L nml without inducible ischemia @ 82% MPHR Cardiac echo ([id number]) on 06/04/2017 at 66 Years. Comments: 06/08/2017 20:15 TIFFANY Lincoln MD, Amy L LV size & function nml; EF 60-65%; mod. concentric LVH; Grade I diastolic dysfunction; mild MR & TR; LA mildly dilated Chest x-ray ([id number]) on 06/03/2017 at 66 Years. Comments: 06/06/2017 11:00 TIFFANY Candelaria LPN, Andrew E [facility] Impression: 1. No acute cardiopulmonary findings Stress echocardiography using dobutamine ([id number]) on 06/03/2017 at 66 Years. Upper GI endoscopy ([id number]) on 06/03/2017 at 66 Years. Comments: 06/09/2017 17:52 TIFFANY Salazar LPN, Erin Pathology results: Stomach, antrum/body, biopsies: 1) Mild chronic gastritis with intestinal metaplasia. 2) Negative for dysplasia and carcinoma. 3) H. pylori immunoperoxidase stain negative. 06/07/2017 17:22 TIFFANY Waters LPN, Kimbra J Impression: LA Grade A reflux esophagitis. Low-grade of narrowing, non-obstructing and mild Schatzki ring. Dilated. a medium amount of food (residue) in the stomach. Erythematous mucosa in the antrum. Biopsied. Normal examined duodenum. Facial bones X-ray ([id number]) on 08/30/2016 at 65 Years. Comments: 09/01/2016 09:42 TIFFANY Henry LPN, Allison IMPRESSION: NO FACIAL FRACTURE IDENTIFIED BY RADIOGRAPHY. Hand X-ray ([id number]) on 08/28/2016 at 65 Years. Comments: 08/30/2016 13:26 TIFFANY Candelaria LPN, Andrew [facility] Impression: 1. No acute fracture or radiopaque foreign body within the left hand Colonoscopy ([id number]) on 01/08/2016 at 65 Years. Comments: 01/13/2016 21:25 ROSSANA Lincoln MD, Amy L tubular adenoma 01/08/2016 17:11 ROSSANA Candelaria LPN, Jorge [facility] Impression: 1. One 5 mm polyp in the descending colon. Resected and retrieved 2. Non bleeding internal hemorrhoids Spirometry ([id number]) on 11/25/2015 at 65 Years. Comments: 11/27/2015 15:14 TIFFANY Candelaria LPN Jorge [facility] Impression: 1. The spirometry reveals mild obstruction with no change in the airflow with the use of albuterol Paraesophageal hernia ([id number]) on 07/11/2015 at 64 Years. Upper GI endoscopy ([id number]) on 05/16/2015 at 64 Years. Comments: 05/16/2015 17:31 TIFFANY Esparza LPN, Mayerling L Large hiatus hernia The examination was otherwise normal Normal mucosa was found in the entire esophagus The Perez ph capsule was deployed. No specimens collected Perez pH capsule ([id number]) on 05/16/2015 at 64 Years. Comments: 05/23/2015 17:05 TIFFANY Salazar LPN, Erin Significant acid reflux with positive correlation with chest pain symptom. Upper GI endoscopy ([id number]) on 03/07/2015 at 64 Years. Comments: 03/10/2015 08:09 ROSSANA Esparza LPN, Mayerling L Large hiatus hernia Normal mucosa was found in the entire esophagus The examination was otherwise normal The Perez pH capsule was deployed. No specimens collected. Ambulatory pH monitoring with Perez ([id number]) on 03/07/2015 at 64 Years. Comments: 03/17/2015 17:37 ROSSANA Esparza LPN, Mayerling L Premature displacement of the Perez clip after only a few hrs after the pt's first meal makes the results uninterpretable and invalid. Colonoscopy ([id number]) on 02/28/2009 at 58 Years. Comments: 11/18/2015 16:37 TIFFANY Lincoln MD, Amy L polyps Cystectomy hand ([id number]) in 2005 at 55 Years. Eyelid lift ([id number]) in 2005 at 55 Years. Comments: 11/18/2015 16:35 TIFFANY Lincoln MD, Amy L blepharoplasty Cardiac catheterization ([id number]) in 2003 at 53 Years. Sling procedure of bladder neck ([id number]) in 1991 at 41 Years. EA - Endometrial ablation ([id number]) in 1989 at 39 Years. Oral surgery ([id number]). Excision of ganglion cyst ([id number]). Comments: 11/18/2015 16:36 TIFFANY Lincoln MD, Amy L left wrist. Social History Social & Psychosocial Habits Alcohol 10/12/2023 Frequency: 1-2 times per year Exercise 10/12/2023 Risk Assessment: Does not exercise Sexual 10/12/2023 Sexually active: No Self described orientation: Heterosexual Tobacco 10/12/2023 Risk Assessment: Denies Tobacco Use 10/12/2023 Use: Never smoker . Physical Examination Vital Signs 10/12/2023 14:39 EDT Heart Rate 85 bpm Respiratory Rate 17 br/min Systolic Blood Pressure 120 mmHg Diastolic Blood Pressure 76 mmHg SpO2 97 % Measurements from flowsheet : Measurements 10/12/2023 14:41 EDT Osteoporosis Screening Tool 3.42 10/12/2023 14:39 EDT Patient Weight 91.1 kg Weight 91.100 kg Weight Method Standing Scale Gastrointestinal: Soft, Non-tender, Non-distended, Normal bowel sounds. Impression and Plan gerd--grade D esophagitis on PPI, gastrin 359 08/2022 c/w PPI and not gastrinoma, contine the nexium, protonix and famotidone. A repeat Steve would be difficult. Continue elevation of head of bed. use prn sucralfate. Discussed new product on market Voquenza will order and if not expensive then patient states she can try it. Will add that to regiment for now. gastric intestinal metaplasia-----no surveillance at this point given high risk for sedation and also cannot be off anticoagulation hx of colon polyps--colo due 12/2023 2 day prep but no further surveillance given high risk of sedation and cannot be off anticoagulatin. pulmonary embolus 07/2023 while on Elliquis--now on coumadine OV 2 months. Addendum by MD Nahum, Roselia Stone on October 12, 2023 15:02 EDT per package insert Voquenza 20 mg for 8 weeks then 10 mg up to 6 months. Will check Mg and B12 also since that can go low on PPI and Voqueza Pt states bowels seems to be impacted and hard or else incontinent with diarrhea. Would recommend miralax 1 scoop of miralax for obstipation. Immunizations Given and Recorded Vaccine Date Status Refusal Reason SARS-CoV-2 (COVID-19) mRNA-vacc - [id number] 12/15/22 Recorded zoster vaccine, inactivated 11/13/22 Recorded [...] Daily, Disp# 90 tab, Refills: 3, Pharmacy: [id number] Start Date: 09/21/23 Status: Ordered BD 1 mL Allergy Syringe 28G x 1/2" Start: 06/25/19 2:27:00 PM EDT, See Instructions, Disp# 1 kit, Refills: 5, to be used to adminster Vitamin B12 injection, Pharmacy: [id number] Start Date: 06/25/19 Status: Ordered BD TB SYRINGE 27GX1/2" BD TB SYRINGE 27GX1/2", See Instructions, Disp# 1 syringe, Refills: 5, TO BE USED TO ADMINSTER VITAMIN B12 INJECTION, Pharmacy [id number] Start Date: 07/11/20 Status: Ordered BD TB SYRINGE 27GX1/2" Start: 10/15/21 8:14:00 PM EDT, BD TB SYRINGE 27GX1/2", See Instructions, Disp# 1 unknown unit, Refills: 5, TO BE USED TO ADMINSTER VITAMIN B12 INJECTION, Pharmacy [id number] Start Date: 10/15/21 Status: Ordered BD TB SYRINGE 27GX1/2" Start: 06/25/19 2:27:00 PM EDT, See Instructions, Disp# 1, Refills: 5, TO BE USED TO ADMINSTER VITAMIN B12 INJECTION, Pharmacy: [id number], TO BE USED TO ADMINSTER VITAMIN B12 INJECTION Start Date: 06/25/19 Status: Ordered cyanocobalamin 1000 mcg/mL injectable solution Start: 10/15/21 8:14:00 PM EDT, See Instructions, Disp# 3 mL, Refills: 5, INJECT 1,000MCG EVERY MONTH, Pharmacy: [id number] Start Date: 10/15/21 Status: Ordered esomeprazole 40 mg oral delayed release capsule Start: 04/21/23 7:14:00 AM EST, 1 cap, PO, Daily, Disp# 90 cap, Refills: 1, Pharmacy: [facility] Start Date: 04/21/23 Status: Ordered famotidine 20 mg oral tablet Start: 05/27/22 11:29:00 AM EDT, 2 tab, PO, bid, Disp# 360 tab, Refills: 1, Pharmacy: [facility] Start Date: 05/27/22 Stop Date: 11/23/22 Status: Ordered FLUoxetine 10 mg oral capsule Start: 10/07/23 9:41:00 AM EDT, 1 cap, PO, Daily, Disp# 30 cap, Refills: 6, Pharmacy: [facility] Start Date: 10/07/23 Status: Ordered hydrALAZINE 10 mg oral tablet Start: 08/27/22 8:19:00 AM EDT, 1 tab, PO, bid, Disp# 180 tab, Refills: 3, for BLOOD PRESSURE, Pharmacy: [facility] Start Date: 08/27/22 Status: Ordered hydrOXYzine hydrochloride 10 mg oral tablet Start: 05/30/23 7:53:00 AM EDT, 1 tab, PO, bid, Disp# 180 tab, Refills: 1, PRN: NEEDED FOR ANXIETY, Pharmacy: [facility] Start Date: 05/30/23 Status: Ordered levothyroxine 50 mcg (0.05 mg) oral tablet Start: 06/30/21 4:51:00 PM EDT, See Instructions, Disp# 34 tab, Refills: 3, 1 tab PO Daily for 6 days, then 2 po daily on one day of week, Note to Pharmacy: Please cancel rx for 25 mcg once daily, Pharmacy: [facility] Start Date: 06/30/21 Status: Ordered Lidocaine Viscous 2% mucous membrane solution Start: 05/27/22 11:26:00 AM EDT, 5 mL, topical, ac, Disp# 100 mL, Refills: 1, PRN: as needed for mouth sore pain, Pharmacy: [facility] Start Date: 05/27/22 Stop Date: 07/08/22 Status: Ordered metoprolol succinate 25 mg oral tablet, extended release Start: 05/07/21 10:02:00 AM EST, 1 tab, PO, Daily, Disp# 30 tab, Refills: 5, Pharmacy: [facility] Start Date: 05/07/21 Status: Ordered ondansetron 4 mg oral tablet See Instructions, Disp# 270 tab, Refills: 0, TAKE 1 TABLET BY MOUTH EVERY 8 HOURS, Pharmacy: [facility] [id number] Start Date: 07/11/20 Status: Ordered pantoprazole 40 mg oral delayed release tablet Start: 09/23/23 7:25:00 AM EDT, See Instructions, Disp# 90 tab, Refills: 0, TAKE 1 TABLET BY MOUTH EVERY DAY, Note to Pharmacy: Pt will need an appt for further refills., Pharmacy: [facility] Start Date: 09/23/23 Status: Ordered rOPINIRole 4 mg oral tablet Start: 07/06/23 8:00:00 AM EDT, 1 tab, PO, qhs, Disp# 30 tab, Refills: 5, Pharmacy: [facility] Start Date: 07/06/23 Status: Ordered simvastatin 40 mg oral tablet Start: 08/30/22 5:20:00 PM EDT, 1 tab, PO, qPM, Disp# 90 tab, Refills: 3, Note to Pharmacy: D/C 20 mgdose, Pharmacy: [facility] Start Date: 08/30/22 Stop Date: 08/25/23 Status: Ordered sucralfate 1 g oral tablet Start: 05/27/22 11:24:00 AM EDT, 1 tab, PO, ac and hs, Disp# 120 tab, Refills: 1, on an empty stomach, Pharmacy: [facility] Start Date: 05/27/22 Stop Date: 07/26/22 Status: Ordered valsartan 320 mg oral tablet See Instructions, Disp# 90 tab, Refills: 3, TAKE 1 TABLET BY MOUTH EVERY DAY, Pharmacy: [id number] Start Date: 05/12/21 Status: Ordered Vitamin D3 50,000 intl units (1250 mcg) oral capsule Start: 06/15/20 9:37:00 AM EDT, 1 cap, PO, q7days, Disp# 8 cap, [id number] Start Date: 06/15/20 Stop Date: 08/10/20 Status: Ordered Voltaren 1% topical gel Start: 05/08/18 8:59:00 AM EDT, 1 appl, topical, qid, Disp# 100 g, Refills: 2, not to exceed 16 grams/day/single joint of lower extremities, PRN: Pain, Pharmacy: [id number] Start Date: 05/08/18 Stop Date: 08/06/18 Status: Ordered Voquezna 20 mg oral tablet Start: 10/12/23 2:57:00 PM EDT, 1 tab, PO, Daily, Disp# 30 tab, Refills: 1, do not crush or chew, for 2 months and then back down to 10 mg, Pharmacy: [facility] Start Date: 10/12/23 Status: Ordered warfarin 3 mg oral tablet Start: 09/14/23 5:38:00 PM EDT, 2 tab, PO, Daily, Disp# 90 tab, Refills: 2, Pharmacy: [facility] Start Date: 09/14/23 Status: Ordered Mental Status 10/12/23 Barriers to Learning one year None evide nt Mandatory Health Literacy Documentation Yes Health Literacy Communication Barriers N ever Primary Language Tristanian Problem List Condition Confirmation Course Effective Dates [...] Effective Dates Health Status Clinical Service Informant Esophagitis, reflux Discharge Diagnosis 10/12/23 Erosive esophagitis Discharge Diagnosis 10/12/23 Procedures Procedure Date Related Diagnosis Body Site [...] evidence of gastroparesis or rapid gastric emptying [address] [place] [address] Impression: 1. LA Grade D reflux esophagitis [...] malignancy. 1 year screening is recommended. 9[facility] Impression: 1. No acute cardiopulmonary findings 10[facility] Impression: 1. Therre is no hemorrhage, mass effect, or evidence of acute territorial eschemia by CT criteria 2. Unremarkable CT angiogram of the brain 3. Unremarkable CT angiogram of the neck 11BRAIN MRI WITHOUT CONTRAST IMPRESSION: No significant change compared to the prior study. No acute intracranial abnormality. 12[facility] Video swallow by speech path normal radiology [...] palpable abnormality. 17Cardiomegaly without acute process. 18[facility] Impression: 1. Mild esophageal dysmotility 2. Postoperative changes from prior Steve fundoplication 3. No appreciable gastroesophageal reflux 19No [...] chronic interstitial thickening. No acute findings. 26[facility] Stomach, antrum/body: 1. Mild chronic gastritis with intestinal metaplasia 2. Negative for dysplasia and carcinoma 3. H. Pylori immunoperoxidase stain negative 271. Dysmotility suggests presbyesophagus. 2. Small hiatal hernia versus postsurgical changes of the gastroesophageal junction from prior Steve. 3. The patient was unable to ingest the barium pill, which was expectorated. 28nml without inducible ischemia @ 82% MPHR 29LV size & function nml; EF 60-65%; mod. concentric LVH; Grade I diastolic dysfunction; mild MR & TR; LA mildly dilated 30[facility] Impression: 1. No acute cardiopulmonary findings [...] NO FACIAL FRACTURE IDENTIFIED BY RADIOGRAPHY. 34[facility] Impression: 1. No acute fracture or radiopaque foreign body within the left hand 35[facility] Impression: 1. One 5 mm polyp in the descending colon. Resected and retrieved 2. Non bleeding internal hemorrhoids 36tubular adenoma 37[facility] Impression: 1. The spirometry reveals mild [...] to oldest [Reference Range]: 1 Patient Weight 91.1 kg (10/12/23 2:39 PM) Heart Rate 85 bpm (10/12/23 2:39 PM) Respiratory Rate 17 br/min (10/12/23 2:39 PM) Blood Pressure 120/76mmHg (10/12/23 2:39 PM) Social History Social History Type Response Smoking Status Never smoked cigaret padmini Sex Female Sex Representation Female (finding) Gastroenterology Outpatient Note * MD Sidhu Brian D: PERFORM, SIGN, VERIFY, SIGN, MODIFY Event Display: Gastroenterology Outpt Note Authored Date: [id number] Patient: MIGUEL ROSALES Age: 72 years Sex: Female : 1950 Associated Diagnoses: None Author: MD Sidhu Brian D Chief Complaint 10/12/2023 14:39 EDT Yearly follow up. History of Present Illness 03/20/20 Consult Kell Ledesma fPA-C for GERD and nausea. Reviewed summary of 2015 EGD with perez withsignificant gerd correlating with chest pain, and large HH. [place] [facility] [place]. Reviewed EGD report [address] Laws at [facility] for dysphagia which showed grade A esophagitis, mild schatzis ring dilated with 54F Savarya, medium food residue in stomach, antral erythema path mild gastritis with intestinal metaplasia, neg for H.pylori, Reviewed 05/2017 barium swallow esophageal dysmotility c/w presbyesophagus, small hiatal hernia, s/p Steve, and she could not ingest the barium pill. Repeat barium swallow 07/2017 report reviewed mild esophageal dysmotility, s/p steve and no refluxReviwed colonscopy done at [facility] 12/2015 shwoing tubular adenoma colon polyp. Reviewed US limited for RUQ mass showing 4.5 cm ventral hernia. Reviewed [facility] OV with Kell Ledesma in uncontrolled GERD noted and protonix 40 mg bid suggested and also nausea being treated with Zofran. Pt also with hx of PE being managed on apixaban. Pt has been taking zofran and protoonix for several years. She states she continued on protonix after the steve. She states 09/2019 she had pneumonia and pulm embolus and states reflux and GERD worse. She states she has burning in substernal and up in back of throat. Has mucous and jaw pain. She feels fluid in back of throat and will cough and dry heave. She has some symptoms every day but will get severe attacks 4 days a week. She is not sure is protonix 40 mg bid ac is any better than once daily. Evening may be worse. Feels better with head elevated in positiion on right it helps some. Pt has gained 178 to 205 over 5 years. She has coughing with eating but no definite esophageal dysphagia (no food catching). 04/18/2020 This is a telephone visit. Pt had appointment scheduled by scheduling. I informed patientof billable nature of visit and any co-pays apply. The nurse called patient at and did medicine reconciliation then transferred the phone call to me. I identified the patient with name and date of . The call was not related to a visit or procedure that occurred within 7 days prior. I am at [facility] office and patient at home located in [place]. I spent 18 minutes speaking with the patient. Reviewed report of EGD done by Dr Keen at [facility] Grade B esophagitis noted and medium amount of food in gastric body. She thinks she ate normal meal no later then about 6 pm. Reviewed video fluoro swallow study by speech path done 04/11/2020 normal. 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 GERD is better overall butstill some burning and choking. Continues on protonix bid. Shortness of breathe and wheezing improved. Pt states blood pressure fluctuating wildly. 08/05/2022 DATA reviewed: COLO 12/2020 Case 3 polyps TC/AC 3-5 mm removed path tubular adenoma, small internal hemorrhoids. COLO to TI 05/2021 Dr Sidhu at [facility] medium IH, poor prep in places, repeat colo 12/2023. PCP OV DR Yarbrough for GERD EGD 07/07/2022 at [facility] with DR Washington grade D esophagitis, excessive fluid in fundus/body/antrum. Takes sucralfate before each meal and at bedtime. Takes Zofran prn Nexium 40 mg once a day in am after a meal. Also on protonix 40 mg before breakast ant before supper. Take famotidine 2 of the 20 mg tabs in mornning and at bedtime. Burning in chest and throat and mouth mostly in evening. Sometimes early evening and sometimes willwake up at night. Does a lot of gagging but does not vomit. She has head of bed elevated about 4 inches. Wedge pillow now and again. Chronic dysphagia. Has trouble with lot of foods such as lettuce and bread. 10/11/2022 DATA reviewed: Labs by me 08/30/2022 gastrin 359 H (upper normal 100) Gastric empty study ordered by me 09/2022 normal. Labs by others 07/27/2023 CMP gluc 130, CBC WBC 10.4 H, lipids chol 269 H, trigs 216 H, ER visits 07/2023 for chest pain and diagnosed with pulm emboli Labs from ER 07/2023 CBC nl, CMP gluc 134 H, alk phos 108 H, OV DR Lincoln 10/07/2023 afib, tremor, HTN, depression, balance problems. She states she had the pulmonary emboli while Elliquis, She states recent heart murmur and may havenormal pressure hydrocephalus. She states she has to really watch what she eats and when she eats it to help control GERD. She drinks mildkshakes and ice cream to help control gerd but can still can get flares. She takes protonix 40 mg once a day opposite of Esomeprazole 40 mg once a day, famotidine 40 mg bid an sucralfate prn (she takes if mouth is sore. Head of bed is elevated. Review of Systems Constitutional: Fatigue. Eye: Negative. Ear/Nose/Mouth/Throat: Negative. Respiratory: Shortness of breath, Cough, Wheezing. Cardiovascular: Peripheral edema. Gastrointestinal: Negative except as documented in history of present illness. Genitourinary: Negative. Hematology/Lymphatics: Negative. Endocrine: Negative. Immunologic: Negative. Musculoskeletal: Joint pain, muscle weakness. Integumentary: Negative. Neurologic: Abnormal balance. Psychiatric: Anxiety, Depression. Health Status Allergies: Allergic Reactions (Selected) Severe Allergy Not found in Search- Severe sensitivity to any opiate. Severity Not Documented Nitroglyn E-R- Vomiting, flushing and headache. Potassium chloride- Shortness of breath, pain in arm and iv. Nonallergic Reactions (Selected) Severity Not Documented Benzodiazepines- Addiction. Latex- Contact rash.. Current medications: (Selected) Prescriptions Prescribed BD 1 mL Allergy Syringe 28G x 1/2": See Instructions, to be used to adminster Vitamin B12 injection, 1 kit, 5 Refill(s) BD TB SYRINGE 27GX1/2": See Instructions, TO BE USED TO ADMINSTER VITAMIN B12 INJECTION, 1 syringe,5 Refill(s) BD TB SYRINGE 27GX1/2": See Instructions, TO BE USED TO ADMINSTER VITAMIN B12 INJECTION, 1 syringe,5 Refill(s) BD TB SYRINGE 27GX1/2": See Instructions, TO BE USED TO ADMINSTER VITAMIN B12 INJECTION, 1 unknown unit, 5 Refill(s) FLUoxetine 10 mg oral capsule: 1 cap, PO, Daily, 30 cap, 6 Refill(s) Lexapro 10 mg oral tablet: 1 tab, PO, Daily, 30 tab, 6 Refill(s) Lidocaine Viscous 2% mucous membrane solution: 5 mL, topical, ac, for 21 day, PRN: as needed for mouth sore pain, 100 mL, 1 Refill(s) Vitamin D3 50,000 intl units (1250 mcg) oral capsule: 1 cap, PO, q7days, for 8 weeks, 8 cap Voltaren 1% topical gel: 1 appl, topical, qid, for 30 day, not to exceed 16 grams/day/single joint of lower extremities, PRN: Pain, 100 g, 2 Refill(s) amLODIPine 10 mg oral tablet: 1 tab, PO, Daily, 90 tab, 3 Refill(s) cyanocobalamin 1000 mcg/mL injectable solution: See Instructions, INJECT 1,000MCG EVERY MONTH, 3 mL, 5 Refill(s) esomeprazole 40 mg oral delayed release capsule: 1 cap, PO, Daily, 90 cap, 1 Refill(s) famotidine 20 mg oral tablet: 2 tab, PO, bid, for 90 day, 360 tab, 1 Refill(s) hydrALAZINE 10 mg oral tablet: 1 tab, PO, bid, for BLOOD PRESSURE, 180 tab, 3 Refill(s) hydrOXYzine hydrochloride 10 mg oral tablet: 1 tab, PO, bid, PRN: NEEDED FOR ANXIETY, 180 tab, 1Refill(s) levothyroxine 50 mcg (0.05 mg) oral tablet: See Instructions, 1 tab PO Daily for 6 days, then 2 po daily on one day of week, 34 tab, 3 Refill(s) metoprolol succinate 25 mg oral tablet, extended release: 1 tab, PO, Daily, 30 tab, 5 Refill(s) ondansetron 4 mg oral tablet: See Instructions, TAKE 1 TABLET BY MOUTH EVERY 8 HOURS, 270 tab, 0 Refill(s) pantoprazole 40 mg oral delayed release tablet: See Instructions, TAKE 1 TABLET BY MOUTH EVERY DAY,90 tab, 0 Refill(s) rOPINIRole 4 mg oral tablet: 1 tab, PO, qhs, 30 tab, 5 Refill(s) simvastatin 40 mg oral tablet: 1 tab, PO, qPM, for 90 day, 90 tab, 3 Refill(s) sucralfate 1 g oral tablet: 1 tab, PO, ac and hs, for 30 day, on an empty stomach, 120 tab, 1 Refill(s) valsartan 320 mg oral tablet: See Instructions, TAKE 1 TABLET BY MOUTH EVERY DAY, 90 tab, 3 Refill(s) warfarin 3 mg oral tablet: 2 tab, PO, Daily, 90 tab, 2 Refill(s). Problem list: Medical Adjustment disorder with depressed mood / SNOMED CT 07943139 / Confirmed Ankle edema / SNOMED CT 78121283 / Confirmed Annual physical exam / SNOMED CT 732018846 / Confirmed Anxiety / SNOMED CT 71515791 / Confirmed Anxious depression / SNOMED CT 156501333 / Confirmed Aortic heart murmur / SNOMED CT 114489540 / Confirmed Balance problem / SNOMED CT 5820002879 / Confirmed Benign essential tremor / SNOMED CT 1697810248 / Confirmed Benzodiazepine (tranquilizer) overdose / SNOMED CT 969211747 / Confirmed Chest tightness / SNOMED CT 102290889 / Confirmed Chronic cough / SNOMED CT 435136468 / Confirmed Dysphagia / SNOMED CT 45679766 / Confirmed Edema / SNOMED CT 317400307 / Confirmed Encounter for PPD test / SNOMED CT 008549424 / Confirmed Endometrial thickening on ultrasound / SNOMED CT 0108147137 / Confirmed Esophagitis, reflux / SNOMED CT 135492642 / Confirmed Facial tic / SNOMED CT 369559439 / Confirmed Fatigue / SNOMED CT 801892055 / Confirmed Gastroparesis / SNOMED CT 121667093 / Confirmed Generalized weakness / SNOMED CT 10733020 / Confirmed Hiatal hernia with GERD and esophagitis / SNOMED CT 7681302051 / Confirmed HTN (hypertension) / SNOMED CT 0292208592 / Confirmed HTN (hypertension) / SNOMED CT 2759083009 / Confirmed Hypothyroidism / SNOMED CT 13595623 / Confirmed Intestinal metaplasia of gastric cardia / SNOMED CT 4418566175 / Confirmed Left hip pain / SNOMED CT 61771948 / Confirmed Meniscus tear / SNOMED CT 624891238 / Confirmed Mild persistent reactive airway disease without complication / SNOMED CT 2780101549 / Confirmed Nonadherence to medication / SNOMED CT 302538009 / Confirmed Panic disorder / SNOMED CT 0654482969 / Confirmed Pes anserine bursitis / SNOMED CT 149330873 / Confirmed Poor balance / SNOMED CT 238356490 / Confirmed Urinary and fecal incontinence / SNOMED CT 890484967 / Confirmed Urinary and fecal incontinence / SNOMED CT 219245813 / Confirmed Weight disorder / SNOMED CT 583570160 / Confirmed Resolved: Acute dyspnea / SNOMED CT 181150145 Resolved: Acute head injury / SNOMED CT 019875369 Resolved: Acute pulmonary embolus / SNOMED CT 9619271898 Resolved: Bereavement / SNOMED CT 804348424 Resolved: Cerebral concussion / SNOMED CT 9740352954 Resolved: Chest discomfort / SNOMED CT 638836734 Resolved: Cough / SNOMED CT 95542523 Resolved: Facial trauma / SNOMED CT 509785457 Resolved: Fever / SNOMED CT 5797338007 Resolved: Left arm pain / SNOMED CT 658450210 Resolved: Left knee pain / SNOMED CT 68885592 Resolved: Needlestick injury accident / SNOMED CT 669728054 Resolved: Needlestick injury of finger / SNOMED CT 585511970 Resolved: Syncope, vasovagal / SNOMED CT 5547600868 Canceled: Acute COVID-19 / SNOMED CT 0655814999 Canceled: Acute UTI / SNOMED CT 7537771435 Canceled: Benzodiazepine misuse / SNOMED CT 8293965853 Canceled: Breast cancer screening by mammogram / SNOMED CT 918406567 Canceled: Chest tightness / SNOMED CT 427129547 Canceled: Combined urinary and fecal incontinence in child / SNOMED CT 0687937018 Canceled: Cough / SNOMED CT 99424850 Canceled: GERD (gastroesophageal reflux disease) / SNOMED CT 012129384 Canceled: GERD without esophagitis / SNOMED CT 5048249177 Canceled: Nausea / SNOMED CT 7405819729 Canceled: Paraesophageal hernia / SNOMED CT 3220335 Canceled: Pre-op exam / SNOMED CT 170570907 Canceled: Recurrent UTI / SNOMED CT 420548304 Canceled: Urgency of urination / SNOMED CT 757744114 All Problems Adjustment disorder with depressed mood / SNOMED CT 89821866 / Confirmed Ankle edema / SNOMED CT 92280335 / Confirmed Annual physical exam / SNOMED CT 415273203 / Confirmed Anxiety / SNOMED CT 07944705 / Confirmed Anxious depression / SNOMED CT 273390165 / Confirmed Aortic heart murmur / SNOMED CT 774772029 / Confirmed Balance problem / SNOMED CT 0665196087 / Confirmed Benign essential tremor / SNOMED CT 6995648633 / Confirmed Benzodiazepine (tranquilizer) overdose / SNOMED CT 150215674 / Confirmed Chest tightness / SNOMED CT 224742791 / Confirmed Chronic cough / SNOMED CT 590167126 / Confirmed Dysphagia / SNOMED CT 15802239 / Confirmed Edema / SNOMED CT 780540591 / Confirmed Encounter for PPD test / SNOMED CT 083213939 / Confirmed Endometrial thickening on ultrasound / SNOMED CT 1665904396 / Confirmed Esophagitis, reflux / SNOMED CT 819911704 / Confirmed Facial tic / SNOMED CT 550462354 / Confirmed Fatigue / SNOMED CT 672545471 / Confirmed Gastroparesis / SNOMED CT 933947457 / Confirmed Generalized weakness / SNOMED CT 21374406 / Confirmed Hiatal hernia with GERD and esophagitis / SNOMED CT 8611818136 / Confirmed HTN (hypertension) / SNOMED CT 5692072352 / Confirmed HTN (hypertension) / SNOMED CT 0115084168 / Confirmed Hypothyroidism / SNOMED CT 32392945 / Confirmed Intestinal metaplasia of gastric cardia / SNOMED CT 0443579919 / Confirmed Left hip pain / SNOMED CT 79457665 / Confirmed Meniscus tear / SNOMED CT 201745817 / Confirmed Mild persistent reactive airway disease without complication / SNOMED CT 5345392865 / Confirmed Nonadherence to medication / SNOMED CT 109782653 / Confirmed Panic disorder / SNOMED CT 6317251936 / Confirmed Pes anserine bursitis / SNOMED CT 997347682 / Confirmed Poor balance / SNOMED CT 934599843 / Confirmed Urinary and fecal incontinence / SNOMED CT 166699343 / Confirmed Urinary and fecal incontinence / SNOMED CT 705364727 / Confirmed Weight disorder / SNOMED CT 749697416 / Confirmed Resolved: Acute dyspnea / SNOMED CT 355556727 Resolved: Acute head injury / SNOMED CT 573408401 Resolved: Acute pulmonary embolus / SNOMED CT 8218877630 Resolved: Bereavement / SNOMED CT 930423016 Resolved: Cerebral concussion / SNOMED CT 9832586388 Resolved: Chest discomfort / SNOMED CT 957285072 Resolved: Cough / SNOMED CT 10881043 Resolved: Facial trauma / SNOMED CT 249969849 Resolved: Fever / SNOMED CT 3793735218 Resolved: Left arm pain / SNOMED CT 656586464 Resolved: Left knee pain / SNOMED CT 87300720 Resolved: Needlestick injury accident / SNOMED CT 015788215 Resolved: Needlestick injury of finger / SNOMED CT 370211992 Resolved: Syncope, vasovagal / SNOMED CT 9601218475 Canceled: Acute COVID-19 / SNOMED CT 4314940845 Canceled: Acute UTI / SNOMED CT 1115661908 Canceled: Benzodiazepine misuse / SNOMED CT 5987025444 Canceled: Breast cancer screening by mammogram / SNOMED CT 201781514 Canceled: Chest tightness / SNOMED CT 643073914 Canceled: 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 Histories Past Medical History: Resolved Left knee pain (91345051): Resolved. Acute dyspnea (821535148): Resolved. Chest discomfort (355514653): Resolved. Bereavement (863270451): Resolved. Needlestick injury of finger (062018136): Resolved. Syncope, vasovagal (4613346233): Resolved. Facial trauma (612774886): Resolved. Needlestick injury accident (355870994): Resolved. Acute head injury (864748948): Resolved. Cerebral concussion (8897763916): Resolved. Left arm pain (215808157): Resolved. Fever (3524194920): Resolved. Cough (32914071): Resolved. Acute pulmonary embolus (0703456362): Resolved.. Family History: Hypertension Mother Father Sister Brother MGM PGM Respiratory disease Mother Father MGF Alcoholism Father Mother PGM PGF Brother Cancer of colon MGM MGF PGM Stroke MGM Heart attack Father Brother . Procedure history: GASTRIC EMPTYING IMAG STUDY (44031) on 10/13/2022 at 71 Years. Comments: 10/14/2022 12:13 TIFFANY Sidhu MD, Jaswant Stone Tracer remaining was 66% at 1 hour, 35 % at 2 hours and 10% at 4 hours with normals being 30-90%, 30-60% and 10%. 10/14/2022 10:57 TIFFANY Salazar LPN, Erin Normal gastric emptying study without evidence of gastroparesis or rapid gastric emptying Upper GI (gastrointestinal) endoscopy ([id number]) on 07/07/2022 at 71 Years. Comments: 07/08/2022 07:34 TIFFANY Candelaria LPN, Andrew E [facility] Impression: 1. LA Grade D reflux esophagitis with no bleeding 2. Excessive gastric fluid 3. Normal examined duodenum 4. No specimens collected Colonoscopy ([id number]) on 06/24/2021 at 70 Years. Comments: 06/24/2021 16:50 TIFFAYN Lozada LPN, Karli R Internal hemorrhoids. Prep poor in placed obscuring mucosa, particularly in the right colon. The examination was otherwise normal on direct and retroflexion views. No specimens collected. Colonoscopy ([id number]) on 06/24/2021 at 70 Years. Comments: 06/25/2021 20:28 TIFFANY Lincoln MD, Cierra Burrows int. hemorrhoids, poor prep; repeat in 3 yrs due to poor prep Colonoscopy ([id number]) on 01/08/2021 at 70 Years. Comments: 05/19/2021 21:37 TIFFANY Lincoln MD, Cierra Burrows path - tubular adenoma X 2; next scope in 3 yrs 05/19/2021 17:12 TIFFANY Lozada LPN, Karli R Three 3 to 5 mm polyps in the transverse colon and in the ascending colon, removed with a cold snare. Resected and retrieved. Non bleeding hemorrhoids. Mammogram ([id number]) on 08/19/2020 at 69 Years. Comments: 08/20/2020 15:30 TIFFANY Lozada LPN, Karli R NO mammographic evidence of malignancy. 1 year screening is recommended. Chest x-ray ([id number]) on 05/27/2020 at 69 Years. Comments: 05/30/2020 09:20 TIFFANY Candelaria LPN, Andrew E [facility] Impression: 1. No acute cardiopulmonary findings CT angio of head/neck (46347) on 05/27/2020 at 69 Years. Comments: 05/30/2020 09:24 TIFFANY Candelaria LPN, Andrew E [facility] Impression: 1. Therre is no hemorrhage, mass effect, or evidence of acute territorial eschemia by CT criteria 2. Unremarkable CT angiogram of the brain 3. Unremarkable CT angiogram of the neck MRI ([id number]) on 05/27/2020 at 69 Years. Comments: 06/09/2020 14:27 TIFFANY Lee LPN, Diah BRAIN MRI WITHOUT CONTRAST IMPRESSION: No significant change compared to the prior study. No acute intracranial abnormality. Videoswallow ([id number]) on 04/11/2020 at 69 Years. Comments: 04/14/2020 06:32 ROSSANA Sidhu MD, Jaswant Stone [facility] Video swallow by speech path normal radiology reading and normal speech path evaluation of swallowing. Upper GI endoscopy ([id number]) on 03/28/2020 at 69 Years. Comments: 04/02/2020 10:48 ROSSANA Salazar LPN, Erin LA Grade B reflux esophagitis. Z-line regular, 35 cm from donald incisors. A medium amount of food (residue) in the stomach. Normal examined duodenum. No specimens collected. Full liquid diet for 1 week Diagnostic hysteroscopy ([id number]) on 01/28/2020 at 69 Years. CXR - Chest X-ray ([id number]) on 11/24/2019 at 69 Years. Comments: 11/26/2019 09:40 TIFFANY Lozada LPN, Karli R No acute process. Hernia repair ([id number]) on 07/20/2018 at 67 Years. Comments: 07/21/2018 13:36 TIFFANY Ledesma PA-C, Jessica A ventral Ultrasound ([id number]) on 05/11/2018 at 67 Years. Comments: 05/12/2018 07:26 TIFFANY Lee LPN, Diah US abdomen limited Impression: A fat-containing nonreducible right upper quandrant abdominal wall hernia. This correspounds to the patient's palpable abnormality. CXR - Chest X-ray ([id number]) on 08/23/2017 at 66 Years. Comments: 08/24/2017 10:07 TIFFANY Lozada LPN, Karli R Cardiomegaly without acute process. Barium swallow ([id number]) on 08/15/2017 at 66 Years. Comments: 08/15/2017 17:03 TIFFANY Candelaria LPN, Andrew E [facility] Impression: 1. Mild esophageal dysmotility 2. Postoperative changes from prior Steve fundoplication 3. No appreciable gastroesophageal reflux MRA of neck ([id number]) on 08/14/2017 at 66 Years. Comments: 08/15/2017 08:36 TIFFANY Lozada LPN, Karli R No significant stenosis within the bilateral common carotid, internal carotid or vertebral arteries. MRI of brain and brain stem with contrast ([id number]) on 08/14/2017 at 66 Years. Comments: 08/15/2017 08:38 TIFFANY Lozada LPN, Karli R 1. No acute intracranial findings. 2. No intracranial mass or pathologic enhancement. 3. Moderate presumed small vessel disease. CT of head ([id number]) on 08/13/2017 at 66 Years. Comments: 08/15/2017 07:51 TIFFANY Lozada LPN, Karli R No acute intracranial findings. CT of cervical spine ([id number]) on 08/13/2017 at 66 Years. Comments: 08/15/2017 07:52 TIFFANY Lozada LPN, Karli R No evidence of acute fracute or traumatic subluxation. CXR - Chest X-ray ([id number]) on 08/13/2017 at 66 Years. Comments: 08/15/2017 07:53 TIFFANY Lozada LPN, Karli R Stable mild chronic interstitial thickening. No acute findings. CT angiogram of head, neck and thorax ([id number]) on 08/13/2017 at 66 Years. Comments: 08/15/2017 08:07 TIFFANY Lozada LPN, Karli R No evidence of hemodynamically significant carotid or vertebral artery stenosis. No evidence of dissection. CT of head ([id number]) on 08/13/2017 at 66 Years. Comments: 08/15/2017 08:08 TIFFANY Lozada LPN, Karli R No significant abnormalities. Pathology report ([id number]) on 06/07/2017 at 66 Years. Comments: 06/14/2017 07:44 TIFFANY Candelaria LPN, Andrew E [facility] Stomach, antrum/body: 1. Mild chronic gastritis with intestinal metaplasia 2. Negative for dysplasia and carcinoma 3. H. Pylori immunoperoxidase stain negative Barium swallow ([id number]) on 06/06/2017 at 66 Years. Comments: 06/07/2017 07:40 TIFFANY Lozada LPN, Karli R 1. Dysmotility suggests presbyesophagus. 2. Small hiatal hernia versus postsurgical changes of the gastroesophageal junction from prior Steve. 3. The patient was unable to ingest the barium pill, which was expectorated. Stress echocardiography using dobutamine ([id number]) on 06/06/2017 at 66 Years. Comments: 06/08/2017 20:16 TIFFANY Lincoln MD, Cierra Burrows nml without inducible ischemia @ 82% MPHR Cardiac echo ([id number]) on 06/04/2017 at 66 Years. Comments: 06/08/2017 20:15 TIFFANY Lincoln MD, Amy L LV size & function nml; EF 60-65%; mod. concentric LVH; Grade I diastolic dysfunction; mild MR & TR; LA mildly dilated Chest x-ray ([id number]) on 06/03/2017 at 66 Years. Comments: 06/06/2017 11:00 TIFAFNY Candelaria LPN, Andrew E [facility] Impression: 1. No acute cardiopulmonary findings Stress echocardiography using dobutamine ([id number]) on 06/03/2017 at 66 Years. Upper GI endoscopy ([id number]) on 06/03/2017 at 66 Years. Comments: 06/09/2017 17:52 TIFFANY Salazar LPN, Erin Pathology results: Stomach, antrum/body, biopsies: 1) Mild chronic gastritis with intestinal metaplasia. 2) Negative for dysplasia and carcinoma. 3) H. pylori immunoperoxidase stain negative. 06/07/2017 17:22 TIFFANY Waters LPN, Kimbra J Impression: LA Grade A reflux esophagitis. Low-grade of narrowing, non-obstructing and mild Schatzki ring. Dilated. a medium amount of food (residue) in the stomach. Erythematous mucosa in the antrum. Biopsied. Normal examined duodenum. Facial bones X-ray ([id number]) on 08/30/2016 at 65 Years. Comments: 09/01/2016 09:42 TIFFANY Henry LPN, Allison IMPRESSION: NO FACIAL FRACTURE IDENTIFIED BY RADIOGRAPHY. Hand X-ray ([id number]) on 08/28/2016 at 65 Years. Comments: 08/30/2016 13:26 TIFFANY Candelaria LPN, Andrew E [facility] Impression: 1. No acute fracture or radiopaque foreign body within the left hand Colonoscopy ([id number]) on 01/08/2016 at 65 Years. Comments: 01/13/2016 21:25 ROSSANA Lincoln MD, Amy L tubular adenoma 01/08/2016 17:11 ROSSANA Candelaria LPN, Andrew E [facility] Impression: 1. One 5 mm polyp in the descending colon. Resected and retrieved 2. Non bleeding internal hemorrhoids Spirometry ([id number]) on 11/25/2015 at 65 Years. Comments: 11/27/2015 15:14 TIFFANY Candelaria LPN, Andrew E [facility] Impression: 1. The spirometry reveals mild obstruction with no change in the airflow with the use of albuterol Paraesophageal hernia ([id number]) on 07/11/2015 at 64 Years. Upper GI endoscopy ([id number]) on 05/16/2015 at 64 Years. Comments: 05/16/2015 17:31 TIFFANY Esparza LPN, Mayerling L Large hiatus hernia The examination was otherwise normal Normal mucosa was found in the entire esophagus The Perez ph capsule was deployed. No specimens collected Perez pH capsule ([id number]) on 05/16/2015 at 64 Years. Comments: 05/23/2015 17:05 TIFFANY Salazar LPN, Erin Significant acid reflux with positive correlation with chest pain symptom. Upper GI endoscopy ([id number]) on 03/07/2015 at 64 Years. Comments: 03/10/2015 08:09 ROSSANA Esparza LPN, Mayerling L Large hiatus hernia Normal mucosa was found in the entire esophagus The examination was otherwise normal The Perez pH capsule was deployed. No specimens collected. Ambulatory pH monitoring with Perez ([id number]) on 03/07/2015 at 64 Years. Comments: 03/17/2015 17:37 ROSSANA Esparza LPN, Mayerling L Premature displacement of the Perez clip after only a few hrs after the pt's first meal makes the results uninterpretable and invalid. Colonoscopy ([id number]) on 02/28/2009 at 58 Years. Comments: 11/18/2015 16:37 TIFFANY Lincoln MD, Cierra Burrows polyps Cystectomy hand ([id number]) in 2005 at 55 Years. Eyelid lift ([id number]) in 2005 at 55 Years. Comments: 11/18/2015 16:35 TIFFANY Lincoln MD, Amy L blepharoplasty Cardiac catheterization ([id number]) in 2003 at 53 Years. Sling procedure of bladder neck ([id number]) in 1991 at 41 Years. EA - Endometrial ablation ([id number]) in 1989 at 39 Years. Oral surgery ([id number]). Excision of ganglion cyst ([id number]). Comments: 11/18/2015 16:36 EDT - MD Salazar, Cierra Stormy left wrist. Social History Social & Psychosocial Habits Alcohol 10/12/2023 Frequency: 1-2 times per year Exercise 10/12/2023 Risk Assessment: Does not exercise Sexual 10/12/2023 Sexually active: No Self described orientation: Heterosexual Tobacco 10/12/2023 Risk Assessment: Denies Tobacco Use 10/12/2023 Use: Never smoker . Physical Examination Vital Signs 10/12/2023 14:39 EDT Heart Rate 85 bpm Respiratory Rate 17 br/min Systolic Blood Pressure 120 mmHg Diastolic Blood Pressure 76 mmHg SpO2 97 % Measurements from flowsheet : Measurements 10/12/2023 14:41 EDT Osteoporosis Screening Tool 3.42 10/12/2023 14:39 EDT Patient Weight 91.1 kg Weight 91.100 kg Weight Method Standing Scale Gastrointestinal: Soft, Non-tender, Non-distended, Normal bowel sounds. Impression and Plan gerd--grade D esophagitis on PPI, gastrin 359 08/2022 c/w PPI and not gastrinoma, contine the nexium, protonix and famotidone. A repeat Steve would be difficult. Continue elevation of head of bed. use prn sucralfate. Discussed new product on market Voquenza will order and if not expensive then patient states she can try it. Will add that to regiment for now. gastric intestinal metaplasia-----no surveillance at this point given high risk for sedation and also cannot be off anticoagulation hx of colon polyps--colo due 12/2023 2 day prep but no further surveillance given high risk of sedation and cannot be off anticoagulatin. pulmonary embolus 07/2023 while on Elliquis--now on coumadine OV 2 months. Electronic Signature on File Electronically Reviewed/Signed by: Jaswant Sidhu MD Author Signature Dt/Tm:10/12/2023 02:56 PM Division of Gastroenterology BDD * MD Nahum, Jaswant Stone: PERFORM Event Display: Gastroenterology Outpt Note Authored Date: [id number] per package insert Voquenza 20 mg for 8 weeks then 10 mg up to 6 months. Will check Mg and B12 alsosince that can go low on PPI and Voqueza Pt states bowels seems to be impacted and hard or else incontinent with diarrhea. Would recommend miralax 1 scoop of miralax for obstipation. Electronic Signature on File Electronically Reviewed/Signed by: Jaswant Sidhu MD Author Signature Dt/Tm:10/12/2023 03:02 PM Division of Gastroenterology BDD Patient Care team information Care Team Personnel Name: GATITO Breaux Tara Position: Nurse Pract - Family Med Member Role: Lifetime Relationship Address: [address] [place] [id number] [place] Name: MD Lincoln Amy L Position: Physician - Family Med Member Role: Primary Care Provider Address: [address] [address] [place] Name: GATITO Dean Shari A Position: Nurse Pract - Family Med Member Role: Lifetime Relationship Address: [address] [address] [place] Care Team Related Persons Name: OKSANA ROSALES Name: KOLBY ROSALES
[2023-11-04] MEDS: OPTIRAY 350 ONE (10:49)
[2023-11-04] MEDS: MIDAZOLAM HCL 1 MG/ML 2ML VIAL ONE (10:50)
[2023-11-04] MEDS: fentaNYL citrate PF 100 MCG/2 ML VIAL ONE (10:50)
[2023-11-04] MEDS: HEPARIN (PORCINE) 1000 UNIT/ML 10 ML (CATH LAB USE ONLY) ONE (10:50)
--- NOTE | 2023-11-04 11:19 | Post Anesthesia Assessment ---
Date of Service November 04, 2023 Post Sedation Assessment Vital Signs Pulse Resp BP Pulse Ox O2 Del Method 11/04/23 09:21 73 18 119/75 96 Room Air Recovery Score Activity: Moves 4 extremities Respiration: Deep Breath/Cough Circulation: +/-20% PreAnes Value Consciousness: Fully Awake Oxygen Saturation: > 92% On Room Air Discharge Sedation Level of Care: Fast Track Phase II Post Sedation Plan On clinical assessment, the patient appears to have tolerated the sedation without complications. Patient is recovering as anticipated. Patient will continue to be monitored by nursing and may be discharged when sedation discharge criteria are met per below protocol. Upon Completions of procedure up to 15 minutes continue every 5 minute vital signs and the P.A.R. score; then discharge to a Phase I or Fast Track to Phase II per the following guidelines: * Discharge Patient to appropriate Phase II area if PAR is 8 or greater or return to pre- procedure baseline. The post - procedure orders will be as directed. * If PAR score is less than 8 or not return to pre-procedure baseline then patient will follow Phase I monitoring till PAR is reached for Phase II. The Phase I may be done in procedure room or may call to secure a Phase I area. * If naloxone or flumazenil are used for reversal, hold in Phase I for continued monitoring from when last reversal dose was given for a minimum of 60 minutes or longer pending the nurse and/or physician discretion of patient condition before discharge to Phase II. Please call the Sedation Physician to re-evaluate and complete post-note for discharge to Phase II area. Do NOT discharge from procedure sedation or Phase 1 until post- sedation evaluation note is complete by procedure /sedation MD Sedation Discharge Instructions to be given to the patient at discharge to home. [facility] Procedure Codes (Charges) Indication for Procedure Indication for procedure: ROMANO Sedation/Anesthesia Procedure 1: Sedation/Anesthesia: 21543 Mod Sedation by the same physician;Init15 Min Child Age 5 & Up (Initial 15-minute, start time 1008) Total Sedation Time (minutes): 40 Procedure 2: Sedation/Anesthesia: 90310 Mod Sedation by the same physician; Ea [id number] Minutes (Additional 25 minutes, end time 1048) Total Sedation Time (minutes): 40
--- NOTE | 2023-11-04 15:33 | Cardiac Catheterization ---
[facility] Data: Heat Treater Head Cardiac Status Clinical evaluation leading to the procedure CAD Presenation: Stable angina Anginal Classification: CCS III Heart Failure: No Cardiogenic Shock within 24 Hours: No Cardiac Arrest within 24 Hours: No Imaging Studies Past 6 Months: Yes Stress Studies Past 6 Months: Yes Coronary Anatomy Dominant: Right Left Main (% Stenosis): Ostial (80-90%) LAD (% Stenosis): Mid (Up to 70%) and Distal (Early 30 to 40%) D1 (% Stenosis): Ostial (60 to 70%) D2 (% Stenosis): Normal Circumflex (% Stenosis): Distal (40 to 50%) OM1 (% Stenosis): Normal (Mild diffuse) OM2 (% Stenosis): Proximal (70%) RCA (% Stenosis): Normal (Scattered less than 20 to 30%) R PDA (% Stenosis): Normal R PL1 (% Stenosis): Normal Diagnostic Physicians Name: Jean Diaz MD, PhD Closure Device Percutaneous Entry Location: Radial and femoral Closure Device: None-Manual Hold and Radial Band Recommendations: CABG Cardiac Cath Procedure Full Procedure Date November 04, 2023 Pre-Procedure Diagnosis Pre-Procedure Diagnosis: Angina and Valvular Disease AUC Score AUC Score: 07 Post-Procedure Diagnosis Post-Procedure Diagnosis: Severe CAD Procedure(s) Performed Procedure(s) Performed: Coronary Angiography and Ultrasound Guided Vascular Access Nuclear Security Officer Jean Diaz MD, PhD Estimated Blood Loss Estimated Blood Loss: 10 cc Medication(s) Medication(s): Fentanyl, Heparin, Lidocaine 1%, Nicardipine, Nitroglycerin and Versed Summary of Findings Brief description: Patient was brought to the cardiac catheterization suite where she was shaved and prepped in a sterile fashion. Sedated using IV Versed and fentanyl. Soft tissues of the right wrist were anesthetized using 2 mL of 1% Xylocaine. The right radial artery was accessed with a modified Seldinger technique and a 6 [place] Islander radial artery glide sheath was placed. Patient was provided anticoagulation with IV heparin and antispasmodics including nicardipine and nitroglycerin. Left coronary angiography was attempted using a 5 [place]er Kirksey 4 diagnostic catheter. This did require use of a Wholey wire. Unfortunately the catheter could not be manipulated to engage the left main. It was therefore exchanged over a 0.035 J-tip wire for a 5 [place]er JL 3.5 diagnostic catheter. Left coronary angiography was performed in orthogonal views with this catheter. We next attempted right coronary angiography with a 5 [place]er JR4 diagnostic catheter, then a 5 [place]er 3 DRC diagnostic catheter, and finally a 4 [place]er 3 DRC diagnostic catheter. However, the patient's vascular anatomy did not allow us to torque the catheter into the right coronary ostium despite the additional use of an Amplatz stiff wire. Decision was made to abandon further attempts from the radial artery approach. Soft tissues of the right groin were anesthetized using 10 mL of 1% Xylocaine. Using the ultrasound for guidance (image saved), the right femoral artery was accessed with a 4 [place] Islander micropuncture kit and then exchanged for a 5 [place]er femoral artery sheath. The right coronary angiography was then performed in orthogonal views using a 5 [place]er JR4 diagnostic catheter. Diagnostic catheter was then removed. We had initially intended to perform right heart cath, however, the femoral vein was positioned behind the femoral artery and additionally the femoral artery had a high bifurcation. Since the patient had already received heparin we decided to forego right heart catheterization at this time. We felt the explanation for her exertional dyspnea was evident on her coronary angiography. Limited right femoral artery angiography was performed to evaluate for closure. Findings were not favorable and therefore the femoral artery sheath was removed when the ACT was less than 170 seconds and hemostasis was obtained with manual compression. The radial artery sheath was removed and hemostasis there was obtained using a vascular band. Patient was hemodynamically stable and asymptomatic. She was returned to the recovery area. This ended the case. Coronary angiography findings: LMT-arises from the left coronary sinus of Valsalva and there is significant calcification superior to the ostium. There is an ostial 80 to 90% stenosis. Could never fully engage the left main because of this lesion. Pressure dampened. IAQ-dxzrl-wexdkoa vessel. Proximal vessel has mild diffuse disease and is tortuous once it gets to the mid segment. There is a good bit of overlap here with the origin of a large first diagonal and a medium second diagonal. The ostium of the first diagonal appears to be 60 to 70% narrowed. The mid LAD also appears to have aneurysmal segment with napkin ring lesion of up to 70%. The distal vessel is less tortuous and has no more than 30 to 40% stenosis in the earlier portion. LCx-this is large caliber and nondominant. Proximal AV groove vessel has no disease. Gives a small to medium caliber OM1 which has mild diffuse disease. Mid AV groove vessel also has no angiographically significant disease and then provides a large branching OM 2 with proximal 70% stenosis. The distal AV groove vessel has 40 to 50% stenosis before it eventually terminates. RCA-originates in the right coronary sinus of Valsalva and there is significant calcification inferior to the ostium of the vessel. This is large caliber and dominant. It is tortuous in the mid to distal vessel and has scattered mild less than 20-30% stenosis. It then bifurcates into a large PDA and large posterior lateral branch. These vessels have no more than mild luminal irregularities. Summary: 1. Severe multivessel coronary disease involving the left main, OM 2, LAD, and borderline D1. 2. Recommend heart team evaluation regarding coronary artery bypass grafting versus high risk multivessel PCI. 3. Guideline directed medical therapy for secondary prevention of coronary disorders per primary printer slotter feeder Hemodynamics Rest Ao:: 104/63 mmHg Final Ao: 115/68 mmHg LV: Not performed Recommendations Recommendations: CABG Radiation Exposure (mGy) 1413 mGy, fluoroscopy time 10.9 minutes Contrast (mls) 135 Anesthesia 1 mg Versed, 25 mcg fentanyl IV. Start time 1008, end time 1048 Procedural Complication(s) None Disposition Heat Treater Head Holding/Recovery I attest to the content of the Intraoperative Record and any orders documented therein. Any exceptions are noted below. [facility] Card Cath Procedure Codes Cardiac Catheterization Procedure 1: Cardiovascular Cath Procedures: 92125 Coronaries Therapeutic Services & Ancillary Procedure 1: Cardiovascular Tx and Anc Procedures: 81434 Ultrasonic Guidance Vascular Access Moderate Sedation Procedure 1: Sedation/Anesthesia: 33712 Mod Sedation by the same physician;Init15 Min Child Age 5 & Up (Initial 15-minute, start time 1008) Procedure 2: Sedation/Anesthesia: 15544 Mod Sedation by the same physician; Ea [id number] Minutes (Additional 25 min, end time 1048) PG Care Time/CCT Total # of Minutes Spent Total Time Spent with Patient: Total time spent is greater than 50% in coordination of care (as documented) at patient's floor/unit and/or counseling patient:
--- NOTE | 2023-11-04 16:31 | History & Physical Report ---
Date of Service November 04, 2023 Assessment & Plan (1) Coronary artery disease: Plan: Planned transfer to [facility] with bed already assigned awaiting transport No current chest pain at rest EKG and baseline labs ordered Routine medications ordered if she is still here tonight Discussed with Dr Vela and will start aspirin, recommending IV heparin drip although by the time we get a baseline PTT suspect she will be off to [place] therefore can likely be started there. (2) Hx pulmonary embolism: Plan: Diagnosed in July (3) Restless legs syndrome: (4) Major depressive disorder, single episode, unspecified: (5) Essential tremor: (6) Status post Hank fundoplication: (7) GERD (gastroesophageal reflux disease): (8) HTN (hypertension): Plan Chronic conditions - continue her usual medications as above VTE Prophylaxis - IV heparin Diet - heart healthy Disposition - admit to PCU Admission and Anticipated Discharge Date Admission Date: November 04, 2023 History of Present Illness Chief Complaint: Severe coronary artery disease Primary Care Provider: Cierra Lincoln MD Brook Alexis is a 72-year-old female admitted following elective outpatient cardiac catheterization. Plan transfer to [place] from the [facility] however due to no immediate bed availability was admitted under the medicine service. She reports progressive worsening chest pain, presyncope and shortness of breath on exertion. She is currently chest pain-free. She denies any palpitations, current presyncope, claudication. She confirms taking both Nexium and pantoprazole for severe esophagitis however is currently under control with these medications. Allergies Allergy/AdvReac Type Severity Reaction Status Date / Time nitroglycerin Allergy Severe pruritis, Verified 11/04/23 09:32 headache, vomiting with patch (see comments) latex Allergy Mild rash Verified 11/04/23 09:32 potassium chloride AdvReac Mild "did not Verified 11/04/23 09:32 tolerate" IV potassium Home Medications Medication Instructions Recorded Confirmed Type ondansetron HCl 4 mg tablet 4 mg PO TID PRN Nausea 02/08/18 11/04/23 History pantoprazole 40 mg tablet,delayed 40 mg PO BID 02/08/18 11/04/23 History release simvastatin 20 mg tablet 20 mg PO HS 10/16/19 11/04/23 History amlodipine 10 mg tablet 10 mg PO QPM 12/04/20 11/04/23 History famotidine 20 mg tablet 20 mg PO QAM 08/14/22 11/04/23 History ropinirole 4 mg tablet 4 mg PO HS 08/14/22 11/04/23 History gabapentin 100 mg capsule 200 mg (2 x 100 mg) PO TID 30 days 07/27/23 11/04/23 Rx #180 caps esomeprazole magnesium 40 mg 40 mg PO QAM 08/10/23 11/04/23 History capsule,delayed release hydroxyzine HCl 10 mg tablet 10 mg PO BID PRN Anxiety 08/10/23 11/04/23 History valsartan 320 mg tablet 320 mg PO QAM 08/10/23 11/04/23 History warfarin 3 mg tablet 3 mg PO DAILY@1600 #30 tabs 08/14/23 11/04/23 Rx Lovenox 90 mg SC Q12 11/04/23 11/04/23 History fluoxetine 10 mg PO DAILY 11/04/23 11/04/23 History hydralazine 10 mg PO BID 11/04/23 11/04/23 History Past Med/Surg History Problem List (Updated 11/04/23 @ 23:48 by Timi Dumont MD) Coronary artery disease Gait apraxia Obesity Chest pain Lethargic Weakness generalized (Chronic) Restless legs syndrome (Chronic) Panic disorder (Chronic) Major depressive disorder, single episode, unspecified (Chronic) Lumbago (Chronic) Hyperlipidemia, unspecified (Chronic) Dyspnea (Chronic) Chronic pain of left knee (Chronic) Anxiety disorder, unspecified (Chronic) Ataxia (Chronic) Essential tremor Cerebrovascular disease Peripheral neuropathy Chest pain (Acute) Pneumonia (Acute) Abnormal CT scan, pelvis Endometrial thickening on ultrasound Dehydration (Acute) Perioral tremor Urinary incontinence Change in bowel movement Osteoarthritis of right foot Hallux valgus (acquired), right foot Hammertoe of second toe of right foot Pain in right foot Idiopathic scoliosis (Chronic) Status post Hank fundoplication Depression GERD (gastroesophageal reflux disease) has chronic cough HTN (hypertension) Medical History (Updated 11/04/23 @ 23:48 by Timi Dumont MD) History of colon polyps Hx pulmonary embolism 09/2019- on Eliquis Anxiety and depression History of COVID-19 11/2020; cough, congestion, loss of taste, fatigue; c/o ongoing fatigue Atrial fibrillation single episode 09/2019 converted with IV amiodarone in setting of PNA/PE Follows with [facility] Cardiology Osteoporosis PAF (paroxysmal atrial fibrillation) Hyponatremia Tremor benign essential tremor (left hand)- controlled History of blood transfusion after each childbirth--last 1984 Restless leg Balance problem under surveillance by PCP, no definitive diagnosis History of endometriosis Panic attacks Premature ventricular contractions (PVCs) (VPCs) Hyperlipidemia Reactive airway disease LAMBERTO (iron deficiency anemia) Surgical History H/O foot surgery Right foot first tarsometatarsal joint arthrodesis with application of Lapiplasty plates History of anesthesia reaction difficulty waking History of esophagogastroduodenoscopy (EGD) Hx of colonoscopy last 05/2021 @ [facility] History of surgery ENDOMETRIOMA REMOVAL + PARTIAL UNILATERAL OOPHORECTOMY + APPENDECTOMY History of hernia repair open ventral hernia repair: 07/20/18: Grade view 1, MAC#3, ETT 7.0 at [facility] History of bladder suspension procedure History of tooth extraction History of surgical removal of ganglion cyst LEFT WRIST S/p bilateral blepharoplasty History of cardiac cath X2; 15+ years ago- no stents Family History Grandmother (Paternal) Family hx of colon cancer Grandmother (Maternal) Family hx of colon cancer Other No family history of adverse response to anesthesia Social History Smoking Status: Never smoker Second Hand Exposure: No; Do You Dip or Chew Tobacco: No; Hx Alcohol Use: No Hx Substance Use: No Preferred Language: Scottish Communication Ability: Effective Field Crop I Farmworker Required: No Beliefs That Will Affect Care: None Current Living Situation: Spouse Feels Safe at Home: Yes Safety Concerns: Feels Safe At This Time Assistive Devices: None Review of Systems Review of Systems: All systems reviewed & are unremarkable except as noted in HPI & below Physical Exam Constitutional: WD/WN, vitals as above ENMT: external ear and nose normal, oropharynx normal Respiratory: normal respiratory effort, lungs clear to auscultation Cardiovascular: Rate/Rhythm: regular rate and regular rhythm Heart Sounds: + murmur (systolic) Extremities: normal capillary refill; no calf tenderness and no pedal edema Gastrointestinal (Abdomen): normal bowel sounds, soft, nontender, no hepatosplenomegaly Skin: no rashes, warm and dry Neurologic: moves all extremities and awake; not confused Psychiatric: A+Ox3, euthymic affect Results & Data Results & Data Vital Signs (Past 12 Hours) Vital Signs Pulse Resp BP Pulse Ox O2 Del Method 11/04/23 15:01 72 16 114/87 95 Room Air 11/04/23 14:00 70 17 114/51 L 98 Room Air 11/04/23 13:08 68 17 125/75 98 Room Air 11/04/23 12:45 69 18 98 Room Air 11/04/23 12:30 62 18 129/77 97 Room Air 11/04/23 12:15 61 18 122/74 97 Room Air 11/04/23 11:59 66 18 132/78 98 Room Air 11/04/23 11:40 62 18 120/72 98 Room Air 11/04/23 11:24 62 18 133/75 98 Room Air 11/04/23 09:21 73 18 119/75 96 Room Air Code Status & VTE Plan Code Status Full VTE Prophylaxis Plan VTE Prophylaxis will be ordered: Yes PG Care Time/CCT Total # of Minutes Spent Total Time Spent with Patient: Total time spent is greater than 50% in coordination of care (as documented) at patient's floor/unit and/or counseling patient: Coding Level of Care Code 75847 INT INP/OBS CARE 140MIN Diagnoses Coronary artery disease I25.10 Hx pulmonary embolism Z86.711 Restless legs syndrome G25.81 Major depressive disorder, single episode, unspecified F32.9 Essential tremor G25.0 Status post Hank fundoplication Z98.890 GERD (gastroesophageal reflux disease) K21.9 HTN (hypertension) I10
[2023-11-04] MEDS ORDERED: ONDANSETRON 4 MG OD TAB PO PRN (16:54)
[2023-11-04 17:29] LABS: Basophils # (auto) 0.09 K/uL (0.00-0.20); Basophils % (auto) 0.9 %; Eosinophils # (auto) 0.17 K/uL (0.00-0.50); Eosinophils % (auto) 1.6 %; Hematocrit (blood only) 37.7 % (37.0-47.0); Hemoglobin 11.7 g/dl (12.0-16.0); Immature Granulocytes # (auto) 0.04 K/uL (0.01-0.20); Immature Granulocytes % (auto) 0.4 %; Lymphocytes # (auto) 2.25 K/uL (1.20-3.40); Lymphocytes % (auto) 21.5 %; Mean Corpuscular Volume 80.6 fL (80.0-100.0); Mean Platelet Volume 9.4 fL (9.4-12.4); Monocytes % (auto) 7.7 %; Neutrophils % (auto) 67.9 %; Platelet Count 278 K/uL (130-400); RDW Coefficient of Variation 14.8 % (11.5-14.5); RDW Standard Deviation 43.2 fL (36.4-46.3); Red Blood Count 4.68 M/uL (4.20-5.40); White Blood Count 10.45 K/ul (4.8-10.8)
[2023-11-04 17:44] LABS: Bilirubin,Total 0.5 mg/dl (0.2-1.0); Calcium 8.8 mg/dl (8.6-10.3); Magnesium 1.7 mg/dl (1.7-2.4); Potassium 3.8 mmol/L (3.5-5.1)
[2023-11-04] MEDS: ASPIRIN 81 MG ECTAB PO STA (17:49)
[2023-11-04 17:50] LABS: Albumin Globulin Ratio 1.3 (0.9-2); BUN Creatinine Ratio 12.6 (10-20); Creatinine Clr Calc Pharmacy 48.1 ml/min; Est GFR (Non-African American) 53.5 ml/min; Globulin 3.1 gm/dl (2.5-4.0); Total Protein 7.1 gm/dl (6.0-8.3)
[2023-11-04 18:02] LABS: INR 1.1 (0.9-1.1); Partial Thromboplastin Time 27 Seconds (21-31); Prothrombin Time 11.9 Seconds (9.0-12.0)
[2023-11-04 18:07] LABS: Troponin I High Sensitivity 9.4 pg/ml (0-14)
[2023-11-04] MEDS ORDERED: Heparin IV Adult Wt-Based Standard *NO* INITIAL Bolus Protocol IV SCH (18:39)
[2023-11-04] MEDS: HEPARIN SODIUM/DEXTROSE 25,000 UNITS/500 ML BAG IV SCH (19:10)
[2023-11-04] MEDS: SIMVASTATIN 20 MG TAB PO SCH (20:05)
[2023-11-04] MEDS: hydrOXYzine HCl 10 MG TAB PO PRN (20:05)
[2023-11-04] MEDS: rOPINIRole HCL 2 MG TABLET PO SCH (20:06)
[2023-11-04] MEDS: GABAPENTIN 100 MG CAP PO SCH (20:06)
[2023-11-04] MEDS: PANTOprazole 40 MG TAB PO SCH (20:06)
[2023-11-04] MEDS: amLODIPine BESYLATE 5 MG TAB PO SCH (20:07)
[2023-11-04] MEDS: hydrALAZINE 10 MG TAB PO SCH (20:09)
[2023-11-04 23:49] VITALS: BP 146/67; RESP 18; TEMP 98.4; O2SAT 95
[2023-11-05 02:09] LABS: ANTI-Xa, UFH(UnfractionatedHep 0.43 IU/ml (0.3-0.7)
[2023-11-05 03:46] VITALS: PULSE 78
[2023-11-05] MEDS ORDERED: VALSARTAN 80 MG TAB PO SCH (09:00)
[2023-11-05] MEDS ORDERED: FLUoxetine HCL 10 MG CAP PO SCH (09:00)
[2023-11-05] MEDS ORDERED: FAMOTIDINE 20 MG TAB PO SCH (09:00)
[2023-11-05] MEDS ORDERED: ASPIRIN 81 MG ECTAB PO SCH (09:00)
--- NOTE | 2023-11-06 11:54 | Discharge Summary ---
Discharge Summary Date of Service November 05, 2023 Principal Dx & Hospital Course #1 = Principal Diagnosis (1) Coronary artery disease: Plan Patient was briefly admitted after outpatient cardiac catheterization. Recommended transfer to [facility] due to severe coronary artery disease for evaulation of coronary artyery bypass versus high risk multivessel PCI. She was transferred to [facility] later the same night. Admission HPI Per Admitting Provider Brook Alexis is a 72-year-old female admitted following elective outpatient cardiac catheterization. Plan transfer to [place] from the [facility] however due to no immediate bed availability was admitted under the medicine service. She reports progressive worsening chest pain, presyncope and shortness of breath on exertion. She is currently chest pain-free. She denies any palpitations, current presyncope, claudication. She confirms taking both Nexium and pantoprazole for severe esophagitis however is currently under control with these medications. Discharge Exam Patient not seen on day of discharge. Discharge Plan Discharge Items Patient Disposition: Transfer Acute Care Hospital Reason For Visit: CHEST PAIN Discharge Diagnosis: severe CAD Activity: Per Instructions section Non-emergency contact: Primary Care Provider Call non-emergency contact if: you have any medication questions, your symptoms worsen, your pain is not controlled, you have a fever, your wound has increased redness and your wound has increased drainage Follow-up/Referrals: Cierra Lincoln MD [Primary Care Provider] - Citlali Vela DO [Physician] - Diet: Heart Healthy [facility] Attending Provider Instructions: ACTIVITY RECOMMENDATIONS: It is common to feel weak and fatigue for a few days. * Do not drive or operate any motorized equipment for the next three days. * Limit stair usage (2 or 3 trips a day only) for the next three days. * Do not lift anything heavier than 10 pounds for the next three days. * Do not engage in vigorous exercise or any sports for the next five days. * You may shower the day after your procedure, but do not immerse the area for three days. Cleanse the site gently with soap and water. SPECIAL CARE INSTRUCTIONS: * You may replace the pressure dressing or band-aid the morning after the procedure. * After your procedure, it is normal to have a small bruise or small lump at the site. Examine your site daily for any change in the bruise or lump, redness, swelling, drainage or numbness. Notify your doctor if any change. BLEEDING: * If there is a small amount of bleeding at the site, lie down and apply firm pressure with a clean cloth for ten minutes. When the bleeding stops, lie quietly keeping the procedure limb straight for six hours. Notify your doctor as soon as possible. * If the bleeding does not stop after ten minutes or if there is a large amount of bleeding or spurting, call 911 immediately. Continue to lie down and hold firm pressure until help arrives. SKIN IRRITATION: * You may experience some redness and/or swelling in the area where radiation was administered. If any skin irritation occurs, please contact your family physician. FOLLOW UP VISIT: Keep any scheduled doctor appointments. Pending Studies at Discharge: No Stand-Alone Forms: My [facility] Skilled Items Patient informed of condition?: Yes DNR: No Discharge Level of Care: Other Communicable Disease: No Discharge Prognosis: Stable Lines: Peripheral IV Urinary Catheter: No Medications and DC Order Prescriptions: Continued gabapentin 100 mg capsule 200 mg PO TID 30 Days Qty: 180 5RF Patient Comments: PT ONLY TAKING 100MG TID ondansetron HCl 4 mg tablet 4 mg PO TID PRN (Reason: Nausea) pantoprazole 40 mg tablet,delayed release (DR/EC) 40 mg PO BID simvastatin 20 mg tablet 20 mg PO HS amlodipine 10 mg tablet 10 mg PO QPM famotidine 20 mg tablet 20 mg PO QAM ropinirole 4 mg tablet 4 mg PO HS Rx Instructions: FILLED 08/11/22 esomeprazole magnesium 40 mg capsule,delayed release(DR/EC) 40 mg PO QAM valsartan 320 mg Tablet 320 mg PO QAM hydroxyzine HCl 10 mg tablet 10 mg PO BID PRN (Reason: Anxiety) Lovenox 90 mg SC Q12 fluoxetine 10 mg PO DAILY hydralazine 10 mg PO BID Held warfarin 3 mg Tablet 3 mg PO DAILY@1600 Qty: 30 0RF Hold Instructions: Resume on 11/05/23. Discharge Orders: Discharge Order (Routine); Ordered 11/05/23 Ordered By: Monique Meadows Admission Data Admit Date/Time: 11/04/23 14:53 Attending Provider: Timi Dumont Admit Provider: Timi Dumont Primary Care Provider: Cierra Lincoln Other Providers: Baylee Cr; Jean Diaz Hospital Stay Data Consultations 11/04/23 16:43 Consult Cardiology Stat Procedures Performed Operation Date: 11/04/23 09:30 Actual Procedures p Cineradiography w/Routine Exam - Jean Diaz MD, PhD p Cath, Coronaries ONLY (no LV) - Jean Diaz MD, PhD Diagnostic Imagining Performed 11/04/23 06:37 CL Cath Imgs for PACS use only Routine Pending Results Patient Have Any Pending Studies at Discharge: No Discharge Instructions Given to Patient (Per Discharging Provider) ACTIVITY RECOMMENDATIONS: It is common to feel weak and fatigue for a few days. * Do not drive or operate any motorized equipment for the next three days. * Limit stair usage (2 or 3 trips a day only) for the next three days. * Do not lift anything heavier than 10 pounds for the next three days. * Do not engage in vigorous exercise or any sports for the next five days. * You may shower the day after your procedure, but do not immerse the area for three days. Cleanse the site gently with soap and water. SPECIAL CARE INSTRUCTIONS: * You may replace the pressure dressing or band-aid the morning after the procedure. * After your procedure, it is normal to have a small bruise or small lump at the site. Examine your site daily for any change in the bruise or lump, redness, swelling, drainage or numbness. Notify your doctor if any change. BLEEDING: * If there is a small amount of bleeding at the site, lie down and apply firm pressure with a clean cloth for ten minutes. When the bleeding stops, lie quietly keeping the procedure limb straight for six hours. Notify your doctor as soon as possible. * If the bleeding does not stop after ten minutes or if there is a large amount of bleeding or spurting, call 911 immediately. Continue to lie down and hold firm pressure until help arrives. SKIN IRRITATION: * You may experience some redness and/or swelling in the area where radiation was administered. If any skin irritation occurs, please contact your family physician. FOLLOW UP VISIT: Keep any scheduled doctor appointments. Total Time Total Time Spent Total Time Spent (In Minutes): 5 Coding Level of Care Code None Diagnoses Coronary artery disease I25.10
--- NOTE | 2023-11-06 22:14 | Electrocardiogram Report ---
Test Reason : Blood Pressure : */* mmHG Vent. Rate : 77 BPM Atrial Rate : 77 BPM P-R Int : 190 ms QRS Dur : 92 ms QT Int : 402 ms P-R-T Axes : 42 35 53 degrees QTcB Int : 454 ms Normal sinus rhythm Nonspecific T wave abnormality Abnormal ECG When compared with ECG of 10-Aug-2023 08:49, Premature ventricular complexes are no longer Present Confirmed by Jovanny German ([id number]) on 11/06/2023 10:13:43 PM Referred By: Citlali Vela Confirmed By: Jovnany German
== END 2023-11-05 01:20 | disposition short-term general hospital (02) | DRG 287 ==
LOC: CC 09:06 → SUATTDRO 14:53 → 2E 14:53
PROC: CLB.CCO (2023-11-04 09:30)

== ENCOUNTER 2024-06-15 12:08 | Observation (INO) ==
[2024-06-15 13:14] LABS: Hematocrit (blood only) 38.9 % (37.0-47.0); Mean Corpuscular Hemoglobin 27.5 pg (25.0-34.0); Mean Corpuscular Hgb Conc 33.4 g/dL (32.0-36.0); Mean Corpuscular Volume 82.4 fL (80.0-100.0); Mean Platelet Volume 9.2 fL (9.4-12.4); Platelet Count 248 K/uL (130-400); RDW Standard Deviation 48.2 fL (36.4-46.3); Red Blood Count 4.72 M/uL (4.20-5.40); White Blood Count 9.84 K/ul (4.8-10.8)
[2024-06-15 13:23] LABS: Albumin Globulin Ratio 1.4 (0.9-2); Albumin Level 4.3 gm/dl (3.4-5.0); BUN Creatinine Ratio 17.5 (10-20); Bilirubin,Total 0.5 mg/dl (0.2-1.0); Globulin 3.1 gm/dl (2.5-4.0); Potassium 3.5 mmol/L (3.5-5.1); Total Protein 7.4 gm/dl (6.0-8.3)
[2024-06-15 13:29] LABS: Troponin I High Sensitivity 26.1 pg/ml (0-14)
[2024-06-15 13:30] LABS: Partial Thromboplastin Ratio 1.3; Partial Thromboplastin Time 34 Seconds (21-31); Prothrombin Time 29.6 Seconds (9.0-12.0)
--- NOTE | 2024-06-15 13:36 | Emergency Department Note ---
Impression & Plan Weakness, Bloody stools, CLARENCE (acute kidney injury), Elevated INR ED Provider Note Provider: Jorge Tran MD CHIEF COMPLAINT: GI bleed symptoms, referred, shortness of breath HISTORY OF PRESENT ILLNESS: Patient is a 73-year-old female past medical history significant for CAD status post CABG, VTE and postoperative CABG A-fib on Eliquis, and prior fundoplication for hernia issues by her report presenting here today referred from outpatient cardiology office. Patient over the past week or so has noted some bloody stools and brown vomit. Has been developing worsening shortness of breath. Has been taking Eliquis and noting blood in the urine. Particular rectal bleeding over the last 3 days. Found to be orthostatic in the office and brought here for further evaluation. Has not taken Eliquis since yesterday. Is on a baby aspirin. Some central chest discomfort but no real abdominal pain reported. Will occasionally have some incontinence for a day and then have multiple days where she does not urinate. Did urinate some today. No falls but feels weak when she stands up. Has been able to eat or drink some. Has been taking her PPI. 1 small bloody bowel movement today. PAST MEDICAL HISTORY: As noted above MEDICATIONS: Reviewed home medications SOCIAL HISTORY: PHYSICAL EXAM: GENERAL: alert and oriented in no acute distress on stretcher Head: normocephalic and atraumatic EYES: No injection, discharge or icterus. NECK: Trachea midline. ENT: Mucous membranes pink and moist. LUNGS: Airway patent. No retractions. Breath sounds clear with good air entry without wheeze or crackles appreciable HEART: Regular rate and rhythm. No chest wall tenderness ABDOMEN: Soft and non-tender, without guarding or rebound. No masses appreciable. SKIN: Acyanotic, warm, dry, without rashes EXTREMITIES: Without tenderness trace swelling of the bilateral lower extremities. NEUROLOGICAL: No focal deficits. No aphasia. No facial droop or slurred speech. Ambulatory. EK bpm sinus tachycardia. No PVCs. Inferolateral T wave inversions without acute ST segment elevation. QTc 464. CONTINUOUS CARDIAC MONITORING: was ordered and showed a heart rate of 70s-100s bpm in normal sinus rhythm sinus tachycardia Patient's laboratory studies and imaging reviewed. Differential includes Cardiac ischemia, aortic dissection, pulmonary embolism, pneumothorax, pneumonia, pericarditis, myocarditis, esophageal rupture, GERD, cholecystitis, pancreatitis, musculoskeletal, GI bleed, colitis, kidney stone, dehydration, enteritis, as well as other pathologies. IMPRESSION/MEDICAL DECISION MAKING: Patient signs of cardiac history. Having some chest pressure. EKG with maybe some lateral T wave inversions. Troponin minimally elevated 26 today. Reports some GI bleed symptoms but not anemic on initial blood work. Denies severe abdominal pain and does not have significant abdominal tenderness at this time. Somewhat short of breath and orthostatic by report. Does have evidence of an acute kidney injury today which is new without severe electrolyte abnormality. Some slight swelling of the legs but she denies is significantly worse. Will obtain imaging of the chest as well as the abdomen pelvis without contrast given her renal dysfunction. Gently given small and IV fluid. Given a PPI given the reported GI bleed symptoms. Does not seem to be actively decompensating or vomiting blood at this time. CT chest and abdomen pelvis without findings of effusion/edema or pneumonia per radiology or findings of kidney stone or bladder distention. Trace amount of gas in the urinary bladder is noted but has not had a catheter. Will attempt to provide urine sample. Given her anticoagulated status doubt PE at this time. BNP not elevated. Given some gentle IV fluid hydration. Negative COVID flu RSV. UA pending collection. Again discussed with the patient concerns given her anticoagulation status and the reported GI bleed symptoms with the acute kidney injury and generalized weakness and mild shortness of breath coming in for further evaluation. Again not hypoxic or tachycardic of significance here and doubt this is PE especially with her anticoagulation. Given her GI history again given a PPI dose and should further be monitored here. Hospitalist team was consulted. Resident hospitalist team later contacted her pharmacy and it does not appear that she has NOT picked up her Eliquis and do question if she has been intermittently taking her Coumadin which is why her INR is elevated at 3.0 today. 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 DIAGNOSIS: CLARENCE, shortness of breath, weakness, chest pain DISPOSITION: Hospitalist will evaluate Patient was agreeable with this plan. Past Med/Surg History Problem List (Updated 06/15/24 @ 16:35 by Jorge Tran M.D.) Elevated INR (Acute) CLARENCE (acute kidney injury) (Acute) Bloody stools (Acute) Weakness (Acute) Coronary artery disease Gait apraxia Obesity Chest pain Lethargic Weakness generalized (Chronic) Restless legs syndrome (Chronic) Panic disorder (Chronic) Major depressive disorder, single episode, unspecified (Chronic) Lumbago (Chronic) Hyperlipidemia, unspecified (Chronic) Dyspnea (Chronic) Chronic pain of left knee (Chronic) Anxiety disorder, unspecified (Chronic) Ataxia (Chronic) Essential tremor Cerebrovascular disease Peripheral neuropathy Chest pain (Acute) Pneumonia (Acute) Abnormal CT scan, pelvis Endometrial thickening on ultrasound Dehydration (Acute) Perioral tremor Urinary incontinence Change in bowel movement Osteoarthritis of right foot Hallux valgus (acquired), right foot Hammertoe of second toe of right foot Pain in right foot Idiopathic scoliosis (Chronic) Status post Hank fundoplication Depression GERD (gastroesophageal reflux disease) has chronic cough HTN (hypertension) Medical History History of colon polyps Hx pulmonary embolism 09/2019- on Eliquis Anxiety and depression History of COVID-19 11/2020; cough, congestion, loss of taste, fatigue; c/o ongoing fatigue Atrial fibrillation single episode 09/2019 converted with IV amiodarone in setting of PNA/PE Follows with [facility] Cardiology Osteoporosis PAF (paroxysmal atrial fibrillation) Hyponatremia Tremor benign essential tremor (left hand)- controlled History of blood transfusion after each childbirth--last 1984 Restless leg Balance problem under surveillance by PCP, no definitive diagnosis History of endometriosis Panic attacks Premature ventricular contractions (PVCs) (VPCs) Hyperlipidemia Reactive airway disease LAMBERTO (iron deficiency anemia) Surgical History H/O foot surgery Right foot first tarsometatarsal joint arthrodesis with application of Lapiplasty plates History of anesthesia reaction difficulty waking History of esophagogastroduodenoscopy (EGD) Hx of colonoscopy last 05/2021 @ [facility] History of surgery ENDOMETRIOMA REMOVAL + PARTIAL UNILATERAL OOPHORECTOMY + APPENDECTOMY History of hernia repair open ventral hernia repair: 07/20/18: Grade view 1, MAC#3, ETT 7.0 at [facility] History of bladder suspension procedure History of tooth extraction History of surgical removal of ganglion cyst LEFT WRIST S/p bilateral blepharoplasty History of cardiac cath X2; 15+ years ago- no stents Family History Grandmother (Paternal) Family hx of colon cancer Grandmother (Maternal) Family hx of colon cancer Other No family history of adverse response to anesthesia Social History Smoking Status: Never smoker Second Hand Exposure: No; Do You Dip or Chew Tobacco: No; Hx Alcohol Use: No Hx Substance Use: No Preferred Language: Ukrainian Communication Ability: Effective Disk Recordist Required: No Beliefs That Will Affect Care: None Current Living Situation: Spouse 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 Feels Safe at Home: Yes Assistive Devices: None Allergies Allergies Allergy/AdvReac Type Severity Reaction Status Date / Time nitroglycerin Allergy Severe pruritis, Verified 11/04/23 09:32 headache, vomiting with patch (see comments) latex Allergy Mild rash Verified 11/04/23 09:32 potassium chloride AdvReac Mild "did not Verified 11/04/23 09:32 tolerate" IV potassium Home Meds Home Medications Medication Instructions Recorded Confirmed ondansetron HCl 4 mg tablet 4 mg PO TID PRN Nausea 02/08/18 06/15/24 pantoprazole 40 mg tablet,delayed 40 mg PO BID 02/08/18 06/15/24 release amlodipine 10 mg tablet 10 mg PO QPM 12/04/20 06/15/24 famotidine 20 mg tablet 20 mg PO QAM 08/14/22 06/15/24 ropinirole 4 mg tablet 4 mg PO HS 08/14/22 06/15/24 esomeprazole magnesium 40 mg 40 mg PO QAM 08/10/23 06/15/24 capsule,delayed release hydroxyzine HCl 10 mg tablet 10 mg PO BID PRN Anxiety 08/10/23 06/15/24 valsartan 320 mg tablet 320 mg PO QAM 08/10/23 06/15/24 fluoxetine 10 mg capsule 10 mg PO QAM 04/25/24 06/15/24 gabapentin 100 mg capsule 200 mg PO TID 04/25/24 06/15/24 amiodarone 200 mg tablet 100 mg PO QAM 06/15/24 06/15/24 apixaban 5 mg tablet (Eliquis) 5 mg PO BID 06/15/24 06/15/24 furosemide 40 mg tablet 40 mg PO QAM 06/15/24 06/15/24 rosuvastatin 40 mg tablet 40 mg PO HS 06/15/24 06/15/24 Results & Data (ED) Vital Signs Vital Signs - 24 hr 06/15/24 12:27 06/15/24 14:09 06/15/24 14:09 Temperature 36.6 C Temperature Source Temporal Artery Scan Pulse Rate 109 H Pulse Rate [Apical] 87 Respiratory Rate 16 18 Respiratory Effort / Characteristics Non-Labored Spontaneous Non-Labored Spontaneous Respiratory Depth Normal Normal Respiratory Pattern Regular Blood Pressure 117/90 Blood Pressure [Right Arm] 123/87 Blood Pressure Mean 99 Blood Pressure Mean [Right Arm] 99 Pulse Oximetry 96 96 96 Oxygen Delivery Method Room Air Room Air Room Air Sepsis Recent Fever Within 48 Hours No Sepsis New/Unexplained Change in Mental Status No Sepsis Action Taken by Nursing No Action Required 06/15/24 15:52 06/15/24 17:00 Temperature Temperature Source Pulse Rate 89 Pulse Rate [Apical] 77 Respiratory Rate 18 Respiratory Effort / Characteristics Non-Labored Spontaneous Respiratory Depth Normal Respiratory Pattern Regular Blood Pressure Blood Pressure [Right Arm] 140/72 Blood Pressure Mean Blood Pressure Mean [Right Arm] 94 Pulse Oximetry 97 Oxygen Delivery Method Room Air Sepsis Recent Fever Within 48 Hours Sepsis New/Unexplained Change in Mental Status Sepsis Action Taken by Nursing Laboratory Data 06/15/24 12:48 06/15/24 12:48 Lab Results 06/15/24 06/15/24 06/15/24 Range/Units 12:48 12:50 14:06 WBC 9.84 (4.8-10.8) K/ul RBC 4.72 (4.20-5.40) M/uL Hgb 13.0 (12.0-16.0) g/dl Hct 38.9 (37.0-47.0) % MCV 82.4 (80.0-100.0) fL MCH 27.5 (25.0-34.0) pg MCHC 33.4 (32.0-36.0) g/dL RDW Std Deviation 48.2 H (36.4-46.3) fL RDW Coeff of Ladi 16.0 H (11.5-14.5) % Plt Count 248 (130-400) K/uL MPV 9.2 L (9.4-12.4) fL PT 29.6 H (9.0-12.0) Seconds INR 3.0 H (0.9-1.1) APTT 34 H (21-31) Seconds PTT Ratio 1.3 Sodium 136 (136-145) mmol/L Potassium 3.5 (3.5-5.1) mmol/L Chloride 98 (98-107) mmol/L Carbon Dioxide 26 (21-32) mmol/L Anion Gap 12 H (3-11) BUN 36 H (6-23) mg/dl Creatinine 2.06 H (0.6-1.2) mg/dl Est Cr Clr Drug Dosing 24.0 ml/min eGFR 24.68 BUN/Creatinine Ratio 17.5 (10-20) Glucose 142 H (70-99(Fasting)) mg/dl Calcium 9.0 (8.6-10.3) mg/dl Total Bilirubin 0.5 (0.2-1.0) mg/dl AST 25 (13-39) U/L ALT 16 (7-52) U/L Alkaline Phosphatase 86 (34-104) U/L Troponin I High Sens 26.1 H (0-14) pg/ml B-Natriuretic Peptide 66 (0-100) pg/ml Total Protein 7.4 (6.0-8.3) gm/dl Albumin 4.3 (3.4-5.0) gm/dl Globulin 3.1 (2.5-4.0) gm/dl Albumin/Globulin Ratio 1.4 (0.9-2) Urine Color Urine Appearance (Clear) Urine pH (4.5-7.5) Ur Specific [place] (1.000-1.030) Urine Protein (Negative) Urine Glucose (UA) (Negative) Urine Ketones (Negative) Urine Blood (Negative) Urine Nitrite (Negative) Urine Bilirubin (Negative) Urine Urobilinogen (Negative) Ur Leukocyte Esterase (Negative) Urine WBC (Auto) (0-5) /hpf Urine RBC (Auto) (0-2) /hpf U Hyaline Cast (Auto) (0-2) /lpf U Epithel Cells (Auto) (0-2) /hpf Urine Bacteria (Auto) (None Seen) POC Stool Occult Blood (Negative) SARS-CoV-2 (PCR) NEGATIVE (Negative) Influenza Type A (PCR) Negative (Neg) Influenza Type B (PCR) Negative (Neg) RSV (RT-PCR) Negative (Neg) Blood Type Antibody Screen 0406/15/24 06/15/24 Range/Units 14:16 16:40 17:10 WBC (4.8-10.8) K/ul RBC (4.20-5.40) M/uL Hgb (12.0-16.0) g/dl Hct (37.0-47.0) % MCV (80.0-100.0) fL MCH (25.0-34.0) pg MCHC (32.0-36.0) g/dL RDW Std Deviation (36.4-46.3) fL RDW Coeff of Ladi (11.5-14.5) % Plt Count (130-400) K/uL MPV (9.4-12.4) fL PT (9.0-12.0) Seconds INR (0.9-1.1) APTT (21-31) Seconds PTT Ratio Sodium (136-145) mmol/L Potassium (3.5-5.1) mmol/L Chloride (98-107) mmol/L Carbon Dioxide (21-32) mmol/L Anion Gap (3-11) BUN (6-23) mg/dl Creatinine (0.6-1.2) mg/dl Est Cr Clr Drug Dosing ml/min eGFR BUN/Creatinine Ratio (10-20) Glucose (70-99(Fasting)) mg/dl Calcium (8.6-10.3) mg/dl Total Bilirubin (0.2-1.0) mg/dl AST (13-39) U/L ALT (7-52) U/L Alkaline Phosphatase (34-104) U/L Troponin I High Sens 29.0 H (0-14) pg/ml B-Natriuretic Peptide (0-100) pg/ml Total Protein (6.0-8.3) gm/dl Albumin (3.4-5.0) gm/dl Globulin (2.5-4.0) gm/dl Albumin/Globulin Ratio (0.9-2) Urine Color Yellow Urine Appearance Clear (Clear) Urine pH 5.5 (4.5-7.5) Ur Specific [place] 1.010 (1.000-1.030) Urine Protein Negative (Negative) Urine Glucose (UA) Negative (Negative) Urine Ketones Negative (Negative) Urine Blood Negative (Negative) Urine Nitrite Negative (Negative) Urine Bilirubin Negative (Negative) Urine Urobilinogen Negative (Negative) Ur Leukocyte Esterase 1+ H (Negative) Urine WBC (Auto) 0-5 (0-5) /hpf Urine RBC (Auto) 0-2 (0-2) /hpf U Hyaline Cast (Auto) 0-2 (0-2) /lpf U Epithel Cells (Auto) 0-2 (0-2) /hpf Urine Bacteria (Auto) 4+ H (None Seen) POC Stool Occult Blood (Negative) SARS-CoV-2 (PCR) (Negative) Influenza Type A (PCR) (Neg) Influenza Type B (PCR) (Neg) RSV (RT-PCR) (Neg) Blood Type A Positive Antibody Screen NEGATIVE 06/15/24 Range/Units 17:58 WBC (4.8-10.8) K/ul RBC (4.20-5.40) M/uL Hgb (12.0-16.0) g/dl Hct (37.0-47.0) % MCV (80.0-100.0) fL MCH (25.0-34.0) pg MCHC (32.0-36.0) g/dL RDW Std Deviation (36.4-46.3) fL RDW Coeff of Ladi (11.5-14.5) % Plt Count (130-400) K/uL MPV (9.4-12.4) fL PT (9.0-12.0) Seconds INR (0.9-1.1) APTT (21-31) Seconds PTT Ratio Sodium (136-145) mmol/L Potassium (3.5-5.1) mmol/L Chloride (98-107) mmol/L Carbon Dioxide (21-32) mmol/L Anion Gap (3-11) BUN (6-23) mg/dl Creatinine (0.6-1.2) mg/dl Est Cr Clr Drug Dosing ml/min eGFR BUN/Creatinine Ratio (10-20) Glucose (70-99(Fasting)) mg/dl Calcium (8.6-10.3) mg/dl Total Bilirubin (0.2-1.0) mg/dl AST (13-39) U/L ALT (7-52) U/L Alkaline Phosphatase (34-104) U/L Troponin I High Sens (0-14) pg/ml B-Natriuretic Peptide (0-100) pg/ml Total Protein (6.0-8.3) gm/dl Albumin (3.4-5.0) gm/dl Globulin (2.5-4.0) gm/dl Albumin/Globulin Ratio (0.9-2) Urine Color Urine Appearance (Clear) Urine pH (4.5-7.5) Ur Specific [place] (1.000-1.030) Urine Protein (Negative) Urine Glucose (UA) (Negative) Urine Ketones (Negative) Urine Blood (Negative) Urine Nitrite (Negative) Urine Bilirubin (Negative) Urine Urobilinogen (Negative) Ur Leukocyte Esterase (Negative) Urine WBC (Auto) (0-5) /hpf Urine RBC (Auto) (0-2) /hpf U Hyaline Cast (Auto) (0-2) /lpf U Epithel Cells (Auto) (0-2) /hpf Urine Bacteria (Auto) (None Seen) POC Stool Occult Blood Positive A (Negative) SARS-CoV-2 (PCR) (Negative) Influenza Type A (PCR) (Neg) Influenza Type B (PCR) (Neg) RSV (RT-PCR) (Neg) Blood Type Antibody Screen Administered Medications Discontinued Medications Pantoprazole Sodium 80 mg/ (Dextrose) 120 mls @ 480 mls/hr IV ONE STA Stop: 06/15/24 13:57 Last Infusion: 06/15/24 14:28 Dose: Infused Documented By: Admin: 06/15/24 14:13 Dose: 480 mls/hr Documented By: ROBERT Sodium Chloride (Nss) 250 mls @ 999 mls/hr IV .Q16M ONE Stop: 06/15/24 14:03 Last Infusion: 06/15/24 14:27 Dose: Infused Documented By: Admin: 06/15/24 14:11 Dose: 999 mls/hr Documented By: [facility] Imaging Data Radiologist's Impression: Abdomen/Pelvis CT 06/15/24 13:[address] WITHOUT CONTRAST CT DOSE: 2034 HISTORY: CLARENCE, gi bleed TECHNIQUE: Multiaxial CT images of the abdomen and pelvis were performed without contrast. A dose lowering technique was utilized adhering to the principles of ALARA. COMPARISON STUDY: 10/16/2019 FINDINGS: Abel: Liver, gallbladder, spleen, pancreas, and adrenal glands have an unremarkable non-IV contrasted appearance. There are a few stable likely small renal cysts. There is no hydronephrosis or renal calculi. There are scattered atherosclerotic calcifications. No abdominal aortic aneurysm. Pelvis: Uterus and adnexa are grossly unremarkable. Urinary bladder is nondistended. There is a small amount of gas within the urinary bladder, suggest clinical correlation for recent bladder instrumentation. There is sigmoid diverticulosis. No acute diverticulitis. There is moderate retained stool. No bowel inflammation or obstruction seen. No free fluid or free air. No enlarged adenopathy. Osseous structures: There is lumbar degenerative disc disease with grade 1 anterolisthesis of L4 on 5. No acute osseous findings. There is minimal scoliosis. IMPRESSION: No acute findings. ACT 112: Negative or not required by law. The above report was generated using voice recognition software. It may contain grammatical, syntax or spelling errors. Electronically signed by: Abdifatah Velez M.D. 06/15/2024 2:[address] 06/15/24 13:43 CT chest diagnostic wo con CT DOSE: 2035.87 mGy.cm CLINICAL HISTORY: 73 years-old Female with sob, GI bleed, CLARENCE, CP. Acute shortness of breath with GI bleed TECHNIQUE: Multiaxial CT images of the chest were performed without contrast. A dose lowering technique was utilized adhering to the principles of ALARA. COMPARISON: CTA chest 02/07/2024 FINDINGS: Heterogeneous thyroid. Cardiomegaly with prior median sternotomy, CABG and prosthetic aortic valve. Extensive [place] coronary artery calcifications. No pericardial effusion or thoracic aortic aneurysm. There is no lymphadenopathy. Descending thoracic aortic tortuosity. No pneumothorax, pleural effusion, airspace consolidation or pulmonary edema. Mild subpleural reticulation within the lateral right lung suggestive of scarring. There are no suspicious pulmonary nodules or masses. Central airways appear patent. No acute upper abdominal abnormality. Degenerative changes of the shoulders and spine. No acute fracture. IMPRESSION: 1. No acute intrathoracic abnormality. 2. No pleural effusion or airspace consolidation typical for pneumonia. ACT 112: Negative or not required by law. Electronically signed by: John Valdez M.D. 06/15/2024 2:17 PM Discharge Plan Visit Data Chief Complaint: GI Bleed Stated Complaint: RECTAL BLEEDING, ON BLOOD THINNERS ED Provider: Jorge Tran Discharge Problem: Weakness, Bloody stools, CLARENCE (acute kidney injury), Elevated INR Patient Disposition: Being Evaluated by Hospitalist Forms Stand Alone Forms: My [facility] Prescriptions Prescriptions: No Action ondansetron HCl 4 mg tablet 4 mg PO TID PRN (Reason: Nausea) pantoprazole 40 mg tablet,delayed release (DR/EC) 40 mg PO BID amlodipine 10 mg tablet 10 mg PO QPM famotidine 20 mg tablet 20 mg PO QAM ropinirole 4 mg tablet 4 mg PO HS Eliquis 5 mg Tablet 5 mg PO BID furosemide 40 mg tablet 40 mg PO QAM amiodarone 200 mg tablet 100 mg PO QAM rosuvastatin 40 mg tablet 40 mg PO HS esomeprazole magnesium 40 mg capsule,delayed release(DR/EC) 40 mg PO QAM valsartan 320 mg Tablet 320 mg PO QAM hydroxyzine HCl 10 mg tablet 10 mg PO BID PRN (Reason: Anxiety) fluoxetine 10 mg capsule 10 mg PO QAM gabapentin 100 mg capsule 200 mg PO TID Referrals Referrals: Cierra Lincoln MD [Primary Care Provider] -
[2024-06-15] MEDS: SODIUM CHLORIDE 0.9% 250 ML IV ONE (14:11)
[2024-06-15] MEDS: PANTOprazole 80 MG in DEXTROSE 5% 100 ML IV STA (14:13)
--- NOTE | 2024-06-15 14:18 | CT Scan Report ---
ABDOMEN AND PELVIS CT WITHOUT CONTRAST CT DOSE: 2034 HISTORY: CLARENCE, gi bleed TECHNIQUE: Multiaxial CT images of the abdomen and pelvis were performed without contrast. A dose lo wering technique was utilized adhering to the principles of ALARA. COMPARISON STUDY: 10/16/2019 FINDINGS: Abel: Liver, gallbladder, spleen, pancreas, and adrenal glands have an unremarkable non-IV contrasted appearance. There are a few stable likely small renal cysts. There is no hydronephrosis or renal dasha culi. There are scattered atherosclerotic calcifications. No abdominal aortic aneurysm. Pelvis: Uterus and adnexa are grossly unremarkable. Urinary bladder is nondistended. There is a small amount of gas within the urinary bladder, suggest clinical correlation for recent bladder instrument ation. There is sigmoid diverticulosis. No acute diverticulitis. There is moderate retained stool. No bowel inflammation or obstruction seen. No free fluid or free air. No enlarged adenopathy. Osseous structures: There is lumbar degenerative disc disease with grade 1 anterolisthesis of L4 on 5 . No acute osseous findings. There is minimal scoliosis. IMPRESSION: No acute findings. ACT 112: Negative or not required by law. The above report was generated using voice recognition software. It may contain grammatical, syntax o r spelling errors. Electronically signed by: Abdifatah Velez M.D. 06/15/2024 2:16 PM
--- NOTE | 2024-06-15 14:19 | CT Scan Report ---
CT chest diagnostic wo con CT DOSE: 2035.87 mGy.cm CLINICAL HISTORY: 73 years-old Female with sob, GI bleed, CLARENCE, CP. Acute shortness of breath with GI bleed TECHNIQUE: Multiaxial CT images of the chest were performed without contrast. A dose lowering techni que was utilized adhering to the principles of ALARA. COMPARISON: CTA chest 02/07/2024 FINDINGS: Heterogeneous thyroid. Cardiomegaly with prior median sternotomy, CABG and prosthetic aorti c valve. Extensive [place] coronary artery calcifications. No pericardial effusion or thoracic aortic aneurysm. There is no lymphadenopathy. Descending thoracic aortic tortuosity. No pneumothorax, pleural effusion, airspace consolidation or pulmonary edema. Mild subpleural reticul ation within the lateral right lung suggestive of scarring. There are no suspicious pulmonary nodules or masses. Central airways appear patent. No acute upper abdominal abnormality. Degenerative changes of the shoulders and spine. No acute fract ure. IMPRESSION: 1. No acute intrathoracic abnormality. 2. No pleural effusion or airspace consolidation typical for pneumonia. ACT 112: Negative or not required by law. Electronically signed by: John Valdez M.D. 06/15/2024 2:17 PM
--- NOTE | 2024-06-15 14:33 | Electrocardiogram Report ---
Test Reason : Blood Pressure : */* mmHG Vent. Rate : 101 BPM Atrial Rate : 101 BPM P-R Int : 152 ms QRS Dur : 86 ms QT Int : 358 ms P-R-T Axes : * 19 203 degrees QTcB Int : 464 ms Sinus tachycardia Abnormal ECG When compared with ECG of 25-Apr-2024 13:04, T wave inversion now evident in Inferior leads Inverted T waves have replaced nonspecific T wave abnormality in Lateral leads QT has lengthened Confirmed by Juloi Harper ([id number]) on 06/15/2024 2:32:51 PM Referred By: REFERRED SELF Confirmed By: Julio Harper
[2024-06-15 15:10] LABS: Influenza A virus by PCR Negative (Neg); Influenza B virus by PCR Negative (Neg); RSV by PCR Negative (Neg); SARS CoV2 RNA(COVID-19) Ceph NEGATIVE (Negative)
--- NOTE | 2024-06-15 15:40 | History & Physical Report ---
Date of Service June 15, 2024 Assessment & Plan (1) Elevated INR: (2) CLARENCE (acute kidney injury): (3) Bloody stools: (4) Weakness: (5) Coronary artery disease: (6) Restless legs syndrome: (7) Panic disorder: (8) Major depressive disorder, single episode, unspecified: (9) Hyperlipidemia, unspecified: (10) Anxiety disorder, unspecified: (11) Peripheral neuropathy: (12) Urinary incontinence: (13) GERD (gastroesophageal reflux disease): (14) Depression: (15) HTN (hypertension): Plan Brook is a 73 Y O Female with PMH of CAD S/P stent , Recent Open Heart Surgery(October 2023) with AVR, Obesity with BMI 39.9, Hypertension, Pulmonary Embolism, Hyperlipidemia, Restless Leg Syndrome, Anxiety with Panic Disorder, Major Depressive disorder,Ataxia, Essential Tremor, Peripheral Neuropathy, Urinary Incontinence, Osteoarthritis presented today after she was referred from cardiology office for orthostatic hypotension.She is admitted for Acute GI Bleed, Shortness of Breath with exertion S/P recent open heart surgery #Acute GI Bleed without anemia - Unclear etiology - Likely due to Eliquis . Not sure if patient is taking Eliquis or Warfarin recently. Patient reports she is adherent with Eliquis. Given her supratherapeutic INR, suspect might be some confusion with the medication -Hold Eliquis in the setting of acute GI Bleed -Protonix 40 mg IV BID -Hgb stable -GI consultation. May need endoscopy and Colonoscopy for further evaluation. Will Keep NPO overnight #Shortness of breath #Recent open heart surgery #Mild elevated troponin -Reports some pressure sensation in left chest and upper left arm since a week -CT chest: reveals no acute intrathoracic abnormality - Has h/o pulmonary emboli 2 years ago . Don't suspect PE given her supratherapeutic INR - EKG reveals new onset T wave inversion in inferior lead -Troponin mild elevated . Initial troponin 27. On repeat 29 - Has recent open heart surgery for AVR (Oct 2023) Plan -Admit in telemetry unit -Cardiology consultation. -Will trend troponin level -ECHO order placed -Repeat EKG in the AM #Orthostatic hypotension - Orthostatic vitals obtained in the clinic, consistent with orthostatic hypotension - Reports some weakness - NS 125ml/hr with total 500ml #CLARENCE -Likely due to recent decreased POI with n/v episode vs. underlying occult process - NS as above - Repeat BMP in AM. -Avoid nephrotoxic medications. #Supratherapeutic INR -INR: 3 -Normal liver enzymes -Not sure if patient is taking Eliquis or Warfarin recently. Started on Eliquis after her recent ER visit for supratherapeutic INR. She was on Warfarin before. -Called the pharmacy and pharmacy reports there is no recent refill of Eliquis - Patient reports she is adherent with Eliquis. Given her supratherapeutic INR, suspect might be some confusion with the medication -Will recheck PT/INR tomorrow morning after holding her meds today. #Chronic Conditions Hypertension: Will hold Amiodarone for now. Continue Amlodipine and valsartan Hyperlipidemia: Continue Rosuvastatin Restless leg syndrome:Continue Ropinirole GERD: will hold home meds. Give protonix IV BID Peripheral Neuropathy: Continue Gabapentin Anxiety and Depression: Continue Hydroxyzine and Fluoxetine Dispo: Telemetry unit VTE prophylaxis: Hold now in settings of Acute GI Bleed Code: Full History of Present Illness Primary Care Provider: Cierra Lincoln MD Brook is a 73 Y O Female with PMH of CAD S/P stent , Recent Open Heart Surgery(October 2023) with AVR, Obesity with BMI 39.9, Hypertension, Pulmonary Embolism, Hyperlipidemia, Restless Leg Syndrome, Anxiety with Panic Disorder, Major Depressive disorder,Ataxia, Essential Tremor, Peripheral Neuropathy, Urinary Incontinence, Osteoarthritis presented today referred from cardiology office for orthostatic hypotension. She reports having symptoms since a week. She had 1 episode of vomiting in past 1 week with bright red color blood and was black in color .She also reports having blood in stool since a week. She denies bleeding from nose, gums and other sites She also reports SOB for about a month but worsening since a week. Shortness of breath aggravated with exertion and relieved on rest. Has a little bit of pressure in left chest and upper arm. Denies palpitations . Has history of chronic cough. Has occasional incontinence and has multiple day she doesn't urinate in the past. But not having issues with urination currently. Denies abdominal pain or syncope Her Last ER visit was on end march for supratherapeutic INR. After this recent visit, Warfarin was stopped and she was started on Eliquis. She feels week currently. Her last dose of Eliquis was yesterday night. Her appetite is decreased and she is eating a lot less since a week. Normal bowel movement. Denies smoking and alcohol She lives with her . Allergies Allergy/AdvReac Type Severity Reaction Status Date / Time nitroglycerin Allergy Severe pruritis, Verified 11/04/23 09:32 headache, vomiting with patch (see comments) latex Allergy Mild rash Verified 11/04/23 09:32 potassium chloride AdvReac Mild "did not Verified 11/04/23 09:32 tolerate" IV potassium Home Medications Medication Instructions Recorded Confirmed Type ondansetron HCl 4 mg tablet 4 mg PO TID PRN Nausea 02/08/18 06/15/24 History pantoprazole 40 mg tablet,delayed 40 mg PO BID 02/08/18 06/15/24 History release amlodipine 10 mg tablet 10 mg PO QPM 12/04/20 06/15/24 History famotidine 20 mg tablet 20 mg PO QAM 08/14/22 06/15/24 History ropinirole 4 mg tablet 4 mg PO HS 08/14/22 06/15/24 History esomeprazole magnesium 40 mg 40 mg PO QAM 08/10/23 06/15/24 History capsule,delayed release hydroxyzine HCl 10 mg tablet 10 mg PO BID PRN Anxiety 08/10/23 06/15/24 History valsartan 320 mg tablet 320 mg PO QAM 08/10/23 06/15/24 History fluoxetine 10 mg capsule 10 mg PO QAM 04/25/24 06/15/24 History gabapentin 100 mg capsule 200 mg PO TID 04/25/24 06/15/24 History amiodarone 200 mg tablet 100 mg PO QAM 06/15/24 06/15/24 History apixaban 5 mg tablet (Eliquis) 5 mg PO BID 06/15/24 06/15/24 History furosemide 40 mg tablet 40 mg PO QAM 06/15/24 06/15/24 History rosuvastatin 40 mg tablet 40 mg PO HS 06/15/24 06/15/24 History Past Med/Surg History Problem List (Updated 06/15/24 @ 18:05 by Julio Naqvi MD) Elevated INR (Acute) CLARENCE (acute kidney injury) (Acute) Bloody stools (Acute) Weakness (Acute) Coronary artery disease Gait apraxia Obesity Restless legs syndrome (Chronic) Panic disorder (Chronic) Major depressive disorder, single episode, unspecified (Chronic) Lumbago (Chronic) Hyperlipidemia, unspecified (Chronic) Chronic pain of left knee (Chronic) Anxiety disorder, unspecified (Chronic) Essential tremor Cerebrovascular disease Peripheral neuropathy Endometrial thickening on ultrasound Perioral tremor Urinary incontinence Osteoarthritis of right foot Hallux valgus (acquired), right foot Hammertoe of second toe of right foot Idiopathic scoliosis (Chronic) Status post Hank fundoplication Depression GERD (gastroesophageal reflux disease) has chronic cough HTN (hypertension) Medical History (Updated 06/15/24 @ 18:05 by Julio Naqvi MD) Gastric volvulus History of colon polyps Hx pulmonary embolism 09/2019- on Eliquis Anxiety and depression History of COVID-19 11/2020; cough, congestion, loss of taste, fatigue; c/o ongoing fatigue Atrial fibrillation single episode 09/2019 converted with IV amiodarone in setting of PNA/PE Follows with [facility] Osteoporosis PAF (paroxysmal atrial fibrillation) Hyponatremia Tremor benign essential tremor (left hand)- controlled History of blood transfusion after each childbirth--last 1984 Restless leg Balance problem under surveillance by PCP, no definitive diagnosis History of endometriosis Panic attacks Premature ventricular contractions (PVCs) (VPCs) Hyperlipidemia Reactive airway disease LAMBERTO (iron deficiency anemia) Surgical History H/O foot surgery Right foot first tarsometatarsal joint arthrodesis with application of Lapiplasty plates History of anesthesia reaction difficulty waking History of esophagogastroduodenoscopy (EGD) Hx of colonoscopy last 05/2021 @ [facility] History of surgery ENDOMETRIOMA REMOVAL + PARTIAL UNILATERAL OOPHORECTOMY + APPENDECTOMY History of hernia repair open ventral hernia repair: 07/20/18: Grade view 1, MAC#3, ETT 7.0 at [facility] History of bladder suspension procedure History of tooth extraction History of surgical removal of ganglion cyst LEFT WRIST S/p bilateral blepharoplasty History of cardiac cath X2; 15+ years ago- no stents Family History Grandmother (Paternal) Family hx of colon cancer Grandmother (Maternal) Family hx of colon cancer Other No family history of adverse response to anesthesia Social History Smoking Status: Never smoker Second Hand Exposure: No; Do You Dip or Chew Tobacco: No; Hx Alcohol Use: No Hx Substance Use: No Preferred Language: Malagasy Communication Ability: Effective Shade Hanger Required: No Beliefs That Will Affect Care: None Current Living Situation: Spouse 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 Feels Safe at Home: Yes Assistive Devices: None Review of Systems Review of Systems: As per HPI Physical Exam Constitutional: WD/WN, vitals as above well developed; no acute distress Eyes: PERRL, conjunctivae normal, anicteric sclerae ENMT: external ear and nose normal, oropharynx normal Ears: no hearing impairment Neck: trachea midline, no thyromegaly trachea midline Respiratory: normal respiratory effort, lungs clear to auscultation normal respiratory effort and + respiratory distress; no labored breathing and no retractions Auscultation: lungs clear to auscultation bilaterally Cardiovascular: RRR, no murmur, no edema Rate/Rhythm: regular rate and regular rhythm Chest (Breasts): normal inspection/palpation of breasts Chest: normal inspection of chest Results & Data Results & Data Vital Signs (Past 12 Hours) Vital Signs Temp Pulse Pulse Resp BP BP Pulse Ox 06/15/24 14:09 96 06/15/24 14:09 87 18 123/87 96 06/15/24 12:27 36.6 C 109 H 16 117/90 96 O2 Del Method 06/15/24 14:09 Room Air 06/15/24 14:09 Room Air 06/15/24 12:27 Room Air Supervising Physician Co-Signing Physician Notes Attending attestation Pt seen and examined in concert with Dr. Longoria. In agreement with the documented findings as noted in the resident documentation with any exceptions or additions as noted here. Resting comfortably in bed without acute complaint. Reports multiple symptoms of variable chronicity. 1-2 months of progressive easy fatigability while sta nding/walking without associated lower extremity swelling or presyncope. Single episode of bloody/coffee ground emesis 2 days prior to evaluation with intermittent (?) dark, tarry bowel movements for weeks in the setting of PO iron supplementation. Intermittent left lateral shoulder pain which is acute on chronic - previously present prior to her AVR and stenting in Oct 2023, resolved since and restarted approximately last week, not present at time of examination. She reports that she is adherent to her medication, especially the Eliquis, though she is not specifically clear on the timeline. She denies recent warfarin use. She has had issues with supratherapeutic INR in the past few months. The pharmacy reports that the patient has no recent fills of apixaban. On examination, S1/S2 nl RRR 2-3/6 RICHARD. CTAB. Abd NT/ND BS+ve. Rectal exam w/ hard stool in vault, FOBT +ve faintly. Acute GI bleed without anemia, h/o Hank remotely - FOBT+ve stools, INR 3.0 - GI consult - trend CBC in AM and monitor for symptoms. Will hold on reversing due to stable HGB, no current sx, h/o PE and AVR/stent in 6 months as below. Ambulatory fatigue/weakness w/ mild elevated troponin, recent AVR/stent - Telemetry - hold AC. Repeat EKG in AM, trend troponin to peak, echocardiogram. Cardiology consultation for direction of anticoagulation. CLARENCE - likely secondary to recent decreased POI with n/v episode vs. underlying occult process - IVF as noted. Repeat BMP in AM. Avoid nephrotoxic medications. Else see resident documentation as noted.
[2024-06-15 17:02] LABS: Appearance Urine Clear (Clear); Bacteria Urine Automated 4+ (None Seen); Bilirubin Urine Negative (Negative); Blood Urine Negative (Negative); Cast Urine Automated 0-2 /lpf (0-2); Color Urine Yellow; Epithelial Cell Urine Auto 0-2 /hpf (0-2); Glucose Urine UA Negative (Negative); Ketones Urine Negative (Negative); Leukocyte Esterase Urine 1+ (Negative); Nitrite Urine Negative (Negative); Protein Urine Negative (Negative); RBC Urine Automated 0-2 /hpf (0-2); Urobilinogen Urine Negative (Negative); WBC Urine Automated 0-5 /hpf (0-5); pH Urine 5.5 (4.5-7.5)
[2024-06-15] MEDS: rOPINIRole HCL 2 MG TABLET PO STA (21:42)
[2024-06-15] MEDS: hydrOXYzine HCl 10 MG TAB PO STA (21:42)
[2024-06-15] MEDS ORDERED: ALUMINUM/MAGNESIUM SUSP 30 ML UDC PO PRN (21:44)
[2024-06-15] MEDS ORDERED: ACETAMINOPHEN 1,000 MG/100 ML VIAL IV PRN (21:44)
[2024-06-15] MEDS ORDERED: POLYETHYLENE (MIRALAX) 17 GM PACK PO PRN (21:44)
[2024-06-15] MEDS ORDERED: MAGNESIUM HYDROXIDE SUSP 30 ML UDC PO PRN (21:44)
[2024-06-15] MEDS ORDERED: ONDANSETRON 4 MG OD TAB PO PRN (22:01)
[2024-06-15] MEDS: ROSUVASTATIN CALCIUM 20 MG TAB PO SCH (23:57)
[2024-06-15] MEDS: GABAPENTIN 100 MG CAP PO SCH (23:57)
[2024-06-15] MEDS: PANTOprazole 40 MG/10 ML SYR IV SCH (23:57)
[2024-06-15] MEDS: amLODIPine BESYLATE 5 MG TAB PO SCH (23:57)
[2024-06-16] MEDS: SODIUM CHLORIDE 0.9% 500 ML IV SCH (00:03)
[2024-06-16] MEDS: LORazepam 2 MG/1 ML VIAL IV STA (00:03)
[2024-06-16 06:42] LABS: Basophils # (auto) 0.09 K/uL (0.00-0.20); Basophils % (auto) 1.2 %; Eosinophils # (auto) 0.25 K/uL (0.00-0.50); Eosinophils % (auto) 3.2 %; Hematocrit (blood only) 35.7 % (37.0-47.0); Hemoglobin 11.6 g/dl (12.0-16.0); Immature Granulocytes # (auto) 0.02 K/uL (0.01-0.20); Immature Granulocytes % (auto) 0.3 %; Lymphocytes # (auto) 2.28 K/uL (1.20-3.40); Lymphocytes % (auto) 29.4 %; Mean Corpuscular Hemoglobin 27.5 pg (25.0-34.0); Mean Corpuscular Hgb Conc 32.5 g/dL (32.0-36.0); Mean Corpuscular Volume 84.6 fL (80.0-100.0); Mean Platelet Volume 9.3 fL (9.4-12.4); Monocytes # (auto) 0.84 K/uL (0.11-0.59); Monocytes % (auto) 10.8 %; Neutrophils # (auto) 4.28 K/uL (1.40-6.50); Neutrophils % (auto) 55.1 %; Platelet Count 217 K/uL (130-400); RDW Coefficient of Variation 16.2 % (11.5-14.5); RDW Standard Deviation 50.3 fL (36.4-46.3); Red Blood Count 4.22 M/uL (4.20-5.40); White Blood Count 7.76 K/ul (4.8-10.8)
[2024-06-16 07:01] LABS: Albumin Globulin Ratio 1.4 (0.9-2); Albumin Level 3.8 gm/dl (3.4-5.0); BUN Creatinine Ratio 23.1 (10-20); Bilirubin,Total 0.5 mg/dl (0.2-1.0); Calcium 8.7 mg/dl (8.6-10.3); Creatinine Clr Calc Pharmacy 40.9 ml/min; Globulin 2.8 gm/dl (2.5-4.0); Potassium 3.1 mmol/L (3.5-5.1); Total Protein 6.6 gm/dl (6.0-8.3)
[2024-06-16 07:07] LABS: Troponin I High Sensitivity 21.6 pg/ml (0-14)
--- NOTE | 2024-06-16 08:19 | Hospitalist Progress Note ---
Date of Service June 16, 2024 Assessment & Plan (1) Elevated INR: (2) CLARENCE (acute kidney injury): (3) Coronary artery disease: (4) Restless legs syndrome: (5) Obesity: (6) Panic disorder: (7) Major depressive disorder, single episode, unspecified: (8) Hyperlipidemia, unspecified: (9) Anxiety disorder, unspecified: (10) Essential tremor: (11) HTN (hypertension): (12) GERD (gastroesophageal reflux disease): (13) Depression: Plan Brook is a 73 Y O Female with PMH of CAD S/P stent , Recent Open Heart Surgery(October 2023) with AVR, Obesity with BMI 39.9, Hypertension, Pulmonary Embolism, Hyperlipidemia, Restless Leg Syndrome, Anxiety with Panic Disorder, Major Depressive disorder,Ataxia, Essential Tremor, Peripheral Neuropathy, Urinary Incontinence, Osteoarthritis presented today after she was referred from cardiology office for orthostatic hypotension.She is admitted for Acute GI Bleed, Shortness of Breath with exertion S/P recent open heart surgery #Acute GI Bleed without anemia -GI consultation. Appreciate GI recs. No need of endoscopy or colonoscopy on inpatient stay -Hold Eliquis in the setting of acute GI Bleed -Protonix 40 mg IV BID -Hgb stable #Shortness of breath #Recent open heart surgery on AC -Reports some pressure sensation in left chest and upper left arm since a week -CT chest: reveals no acute intrathoracic abnormality - EKG reveals new onset T wave inversion in inferior lead. Repeat EKG in the AM: no changes -Troponin downtrending - Has recent open heart surgery for AVR (Oct 2023) -Cardiology consultation. Appreciate Cardio recs #Supratherapeutic INR -INR: 3 -No evidence of liver abnormality or liver disease -Patient is adamant that she is taking Eliquis -Monitor INR AM #Orthostatic hypotension(Resolved) #CLARENCE(Resolved) #Chronic Conditions Hypertension: Will hold Amiodarone for now. Continue Amlodipine and valsartan Hyperlipidemia: Continue Rosuvastatin Restless leg syndrome:Continue Ropinirole GERD: will hold home meds. Give protonix IV BID Peripheral Neuropathy: Continue Gabapentin Anxiety and Depression: Continue Hydroxyzine and Fluoxetine Dispo: Telemetry unit VTE prophylaxis: Hold now in settings of Acute GI Bleed Code: Full Admission and Anticipated Discharge Date Admission Date: June 15, 2024 Supervising Physician Co-Signing Physician Notes Attending attestation Pt seen and examined in concert with Dr. Longoria. In agreement with the documented findings as noted in the resident documentation with any exceptions or additions as noted here. Resting comfortably in bed, reports significant improvement in ambulatory function following hydration overnight. Reports that spouse examined medication bottles and 'definitely apixaban'. On examination, S1/S2 nl RRR 2-3/6 RICHARD. CTAB. Abd NT/ND BS+ve. Ambulatory fatigue/weakness w/ mild elevated troponin, recent AVR/stent - Telemetry - hold AC. Repeat EKG in AM without significant change, trop downtrended. Echocardiogram pending. Cardiology consultation for direction of anticoagulation. Acute GI bleed without anemia, h/o Hank remotely - FOBT+ve stools, INR 3.0 - GI consult - CBC with mild decrease following hydration. trend CBC in AM. No need for endoscopy on inpatient stay per GI. CLARENCE - significantly improved. likely secondary to recent decreased POI with n/v episode - Repeat BMP in AM. Avoid nephrotoxic medications. Else see resident documentation as noted. Subjective Overnight events: Couldn't sleep well as her anxiety got worse. No nay concerning overnight events Ongoing symptoms: Has some shortness of breath. Denies chest pain, N/V , and upper arm pain currently. Had her BM today which as black but no fresh blood. Peeing normal New concerns: no any Review of Systems Review of Systems: As per HPI Physical Exam Constitutional: WD/WN, vitals as above well developed; no acute distress Eyes: PERRL, conjunctivae normal, anicteric sclerae ENMT: external ear and nose normal, oropharynx normal Ears: no hearing impairment Neck: trachea midline, no thyromegaly trachea midline Respiratory: normal respiratory effort, lungs clear to auscultation normal respiratory effort and + respiratory distress; no labored breathing and no retractions Auscultation: lungs clear to auscultation bilaterally Cardiovascular: RRR, no murmur, no edema Rate/Rhythm: regular rate and regular rhythm Chest (Breasts): normal inspection/palpation of breasts Chest: normal inspection of chest Results & Data Results & Data Vital Signs (Past 12 Hours) Vital Signs Temp Pulse Pulse Resp BP Pulse Ox O2 Del Method 06/16/24 07:18 36.6 C 85 18 122/72 97 Room Air 06/16/24 07:00 82 06/16/24 04:00 36.6 C 77 16 114/72 94 Room Air 06/16/24 00:00 88 06/16/24 00:00 37.1 C 81 16 105/64 93 Room Air 06/15/24 22:49 36.7 C 80 16 122/88 97 Room Air 06/15/24 22:00 81 15 123/71 06/15/24 21:00 82 16 137/76 Room Air
[2024-06-16] MEDS: POTASSIUM CHLORIDE / WTR 10 MEQ/100 ML PLCT IV SCH (08:20)
[2024-06-16] MEDS: FLUoxetine HCL 10 MG CAP PO SCH (08:25)
[2024-06-16 08:50] LABS: Prothrombin Time 29.7 Seconds (9.0-12.0)
[2024-06-16] MEDS ORDERED: VALSARTAN 80 MG TAB PO SCH (09:00)
[2024-06-16] MEDS ORDERED: FUROSEMIDE 40 MG TAB PO SCH (09:00)
--- NOTE | 2024-06-16 10:20 | Gastrointestinal Consultation ---
Date of Consultation June 16, 2024 Assessment & Plan (1) Anemia: Pleasant lady with isolated episode of hematemesis, some blood in stool and hematuria about five days ago, none since. Bleeding from all three areas would support bleeding diathesis from eliquis or from her elevated INR and that bleeding seems to have stopped. She has had both EGD and colonoscopy in the not too distant past so I don't think we necessarily need to jump in and repeat testing. Of note, her hemoglobin today is more consistent with where it has been in the past several years than the hemoglobin on admit. I would be most concerned as to why her INR is still elevated if she hasn't been on warfarin for more than six weeks and she has no evidence of liver disease. Eliquis has been reported to cause insignificant increase in INR but not to this magnitude. I might consider hematology consultation. History of Present Illness Reason for Consultation: heme (+) stool Attending Physician: Julio Naqvi MD History of Present Illness 73 year old female who tells me that Tuesday or Tuesday of last week she had a solitary episode of vomiting of brown emesis with red streaks in it. This was associated with a dark stool (she takes iron) but as the stool sat in the water blood leached from it. She also had an episode of hematuria on the same day--this was a trip to the bathroom where she only urinated. She has had no symptoms since then. She feels well as I am seeing her. She had an INR of 3.0 on admit but she is adamant that she has not taken warfarin in 6 weeks. She is on eliquis and she says the pills do not look anything like each other. She has no history of liver disease. She had an EGD with evidence of reflux two years ago and a colonoscopy three years ago by Dr. Sidhu. Allergies Allergy/AdvReac Type Severity Reaction Status Date / Time nitroglycerin Allergy Severe pruritis, Verified 11/04/23 09:32 headache, vomiting with patch (see comments) latex Allergy Mild rash Verified 11/04/23 09:32 potassium chloride AdvReac Mild "did not Verified 11/04/23 09:32 tolerate" IV potassium Home Medications Medication Instructions Recorded Confirmed Type ondansetron HCl 4 mg tablet 4 mg PO TID PRN Nausea 02/08/18 06/15/24 History pantoprazole 40 mg tablet,delayed 40 mg PO BID 02/08/18 06/15/24 History release amlodipine 10 mg tablet 10 mg PO QPM 12/04/20 06/15/24 History famotidine 20 mg tablet 20 mg PO QAM 08/14/22 06/15/24 History ropinirole 4 mg tablet 4 mg PO HS 08/14/22 06/15/24 History esomeprazole magnesium 40 mg 40 mg PO QAM 08/10/23 06/15/24 History capsule,delayed release hydroxyzine HCl 10 mg tablet 10 mg PO BID PRN Anxiety 08/10/23 06/15/24 History valsartan 320 mg tablet 320 mg PO QAM 08/10/23 06/15/24 History fluoxetine 10 mg capsule 10 mg PO QAM 04/25/24 06/15/24 History gabapentin 100 mg capsule 200 mg PO TID 04/25/24 06/15/24 History amiodarone 200 mg tablet 100 mg PO QAM 06/15/24 06/15/24 History apixaban 5 mg tablet (Eliquis) 5 mg PO BID 06/15/24 06/15/24 History furosemide 40 mg tablet 40 mg PO QAM 06/15/24 06/15/24 History rosuvastatin 40 mg tablet 40 mg PO HS 06/15/24 06/15/24 History Patient History Medical History Gastric volvulus History of colon polyps Hx pulmonary embolism 09/2019- on Eliquis Anxiety and depression History of COVID-19 11/2020; cough, congestion, loss of taste, fatigue; c/o ongoing fatigue Atrial fibrillation single episode 09/2019 converted with IV amiodarone in setting of PNA/PE Follows with [facility] Cardiology Osteoporosis PAF (paroxysmal atrial fibrillation) Hyponatremia Tremor benign essential tremor (left hand)- controlled History of blood transfusion after each childbirth--last 1984 Restless leg Balance problem under surveillance by PCP, no definitive diagnosis History of endometriosis Panic attacks Premature ventricular contractions (PVCs) (VPCs) Hyperlipidemia Reactive airway disease LAMBERTO (iron deficiency anemia) Surgical History H/O foot surgery Right foot first tarsometatarsal joint arthrodesis with application of Lapiplasty plates History of anesthesia reaction difficulty waking History of esophagogastroduodenoscopy (EGD) Hx of colonoscopy last 05/2021 @ [facility] History of surgery ENDOMETRIOMA REMOVAL + PARTIAL UNILATERAL OOPHORECTOMY + APPENDECTOMY History of hernia repair open ventral hernia repair: 07/20/18: Grade view 1, MAC#3, ETT 7.0 at [facility] History of bladder suspension procedure History of tooth extraction History of surgical removal of ganglion cyst LEFT WRIST S/p bilateral blepharoplasty History of cardiac cath X2; 15+ years ago- no stents Family History Grandmother (Paternal) Family hx of colon cancer Grandmother (Maternal) Family hx of colon cancer Other No family history of adverse response to anesthesia Social History Smoking Status: Never smoker Second Hand Exposure: No; Do You Dip or Chew Tobacco: No; Hx Alcohol Use: No Hx Substance Use: No Preferred Language: Uzbek Communication Ability: Effective Angiographer Required: No Beliefs That Will Affect Care: None Current Living Situation: Spouse 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 Feels Safe at Home: Yes Safety Concerns: Feels Safe At This Time Assistive Devices: Denture - Upper and Denture - Lower Review of Systems Review of Systems: All systems reviewed & are unremarkable except as noted in HPI & below Physical Exam Physical Exam: Pleasant female in no distress Constitutional: WD/WN, vitals as above Neck: trachea midline, no thyromegaly Respiratory: normal respiratory effort, lungs clear to auscultation Cardiovascular: RRR, no murmur, no edema Gastrointestinal (Abdomen): normal bowel sounds, soft, nontender, no hepa tosplenomegaly Results & Data Vital Signs (Past 12 Hours) Vital Signs Temp Pulse Pulse Resp BP Pulse Ox O2 Del Method 06/16/24 07:18 36.6 C 85 18 122/72 97 Room Air 06/16/24 07:00 82 06/16/24 04:00 36.6 C 77 16 114/72 94 Room Air 06/16/24 00:00 88 06/16/24 00:00 37.1 C 81 16 105/64 93 Room Air 06/15/24 22:49 36.7 C 80 16 122/88 97 Room Air Laboratory Results 06/16/24 06/16/24 06/15/24 Range/Units 07:50 05:40 17:58 WBC 7.76 (4.8-10.8) K/ul RBC 4.22 (4.20-5.40) M/uL Hgb 11.6 L (12.0-16.0) g/dl Hct 35.7 L (37.0-47.0) % MCV 84.6 (80.0-100.0) fL MCH 27.5 (25.0-34.0) pg MCHC 32.5 (32.0-36.0) g/dL RDW Std Deviation 50.3 H (36.4-46.3) fL RDW Coeff of Ladi 16.2 H (11.5-14.5) % Plt Count 217 (130-400) K/uL MPV 9.3 L (9.4-12.4) fL Immature Gran % (Auto) 0.3 % Neut % (Auto) 55.1 % Lymph % (Auto) 29.4 % [place] % (Auto) 10.8 % Eos % (Auto) 3.2 % Baso % (Auto) 1.2 % Neut # (Auto) 4.28 (1.40-6.50) K/uL Lymph # (Auto) 2.28 (1.20-3.40) K/uL [place] # (Auto) 0.84 H (0.11-0.59) K/uL Eos # (Auto) 0.25 (0.00-0.50) K/uL Baso # (Auto) 0.09 (0.00-0.20) K/uL Immature Gran # (Auto) 0.02 (0.01-0.20) K/uL PT 29.7 H (9.0-12.0) Seconds INR 3.0 H (0.9-1.1) APTT (21-31) Seconds PTT Ratio Sodium 139 (136-145) mmol/L Potassium 3.1 L (3.5-5.1) mmol/L Chloride 102 (98-107) mmol/L Carbon Dioxide 29 (21-32) mmol/L Anion Gap 8 (3-11) BUN 28 H (6-23) mg/dl Creatinine 1.21 H D (0.6-1.2) mg/dl Est Cr Clr Drug Dosing 40.9 ml/min eGFR 46.74 BUN/Creatinine Ratio 23.1 H (10-20) Glucose 109 H (70-99(Fasting)) mg/dl Calcium 8.7 (8.6-10.3) mg/dl Total Bilirubin 0.5 (0.2-1.0) mg/dl AST 21 (13-39) U/L ALT 13 (7-52) U/L Alkaline Phosphatase 80 (34-104) U/L Troponin I High Sens 21.6 H (0-14) pg/ml B-Natriuretic Peptide (0-100) pg/ml Total Protein 6.6 (6.0-8.3) gm/dl Albumin 3.8 (3.4-5.0) gm/dl Globulin 2.8 (2.5-4.0) gm/dl Albumin/Globulin Ratio 1.4 (0.9-2) Urine Color Urine Appearance (Clear) Urine pH (4.5-7.5) Ur Specific [place] (1.000-1.030) Urine Protein (Negative) Urine Glucose (UA) (Negative) Urine Ketones (Negative) Urine Blood (Negative) Urine Nitrite (Negative) Urine Bilirubin (Negative) Urine Urobilinogen (Negative) Ur Leukocyte Esterase (Negative) Urine WBC (Auto) (0-5) /hpf Urine RBC (Auto) (0-2) /hpf U Hyaline Cast (Auto) (0-2) /lpf U Epithel Cells (Auto) (0-2) /hpf Urine Bacteria (Auto) (None Seen) POC Stool Occult Blood Positive A (Negative) SARS-CoV-2 (PCR) (Negative) Hepatitis C Ab Screen Pending Influenza Type A (PCR) (Neg) Influenza Type B (PCR) (Neg) RSV (RT-PCR) (Neg) Blood Type Antibody Screen 06/15/24 06/15/24 06/15/24 Range/Units 17:10 16:40 14:16 WBC (4.8-10.8) K/ul RBC (4.20-5.40) M/uL Hgb (12.0-16.0) g/dl Hct (37.0-47.0) % MCV (80.0-100.0) fL MCH (25.0-34.0) pg MCHC (32.0-36.0) g/dL RDW Std Deviation (36.4-46.3) fL RDW Coeff of Ladi (11.5-14.5) % Plt Count (130-400) K/uL MPV (9.4-12.4) fL Immature Gran % (Auto) % Neut % (Auto) % Lymph % (Auto) % [place] % (Auto) % Eos % (Auto) % Baso % (Auto) % Neut # (Auto) (1.40-6.50) K/uL Lymph # (Auto) (1.20-3.40) K/uL [place] # (Auto) (0.11-0.59) K/uL Eos # (Auto) (0.00-0.50) K/uL Baso # (Auto) (0.00-0.20) K/uL Immature Gran # (Auto) (0.01-0.20) K/uL PT (9.0-12.0) Seconds INR (0.9-1.1) APTT (21-31) Seconds PTT Ratio Sodium (136-145) mmol/L Potassium (3.5-5.1) mmol/L Chloride (98-107) mmol/L Carbon Dioxide (21-32) mmol/L Anion Gap (3-11) BUN (6-23) mg/dl Creatinine (0.6-1.2) mg/dl Est Cr Clr Drug Dosing ml/min eGFR BUN/Creatinine Ratio (10-20) Glucose (70-99(Fasting)) mg/dl Calcium (8.6-10.3) mg/dl Total Bilirubin (0.2-1.0) mg/dl AST (13-39) U/L ALT (7-52) U/L Alkaline Phosphatase (34-104) U/L Troponin I High Sens 29.0 H (0-14) pg/ml B-Natriuretic Peptide (0-100) pg/ml Total Protein (6.0-8.3) gm/dl Albumin (3.4-5.0) gm/dl Globulin (2.5-4.0) gm/dl Albumin/Globulin Ratio (0.9-2) Urine Color Yellow Urine Appearance Clear (Clear) Urine pH 5.5 (4.5-7.5) Ur Specific [place] 1.010 (1.000-1.030) Urine Protein Negative (Negative) Urine Glucose (UA) Negative (Negative) Urine Ketones Negative (Negative) Urine Blood Negative (Negative) Urine Nitrite Negative (Negative) Urine Bilirubin Negative (Negative) Urine Urobilinogen Negative (Negative) Ur Leukocyte Esterase 1+ H (Negative) Urine WBC (Auto) 0-5 (0-5) /hpf Urine RBC (Auto) 0-2 (0-2) /hpf U Hyaline Cast (Auto) 0-2 (0-2) /lpf U Epithel Cells (Auto) 0-2 (0-2) /hpf Urine Bacteria (Auto) 4+ H (None Seen) POC Stool Occult Blood (Negative) SARS-CoV-2 (PCR) (Negative) Hepatitis C Ab Screen Influenza Type A (PCR) (Neg) Influenza Type B (PCR) (Neg) RSV (RT-PCR) (Neg) Blood Type A Positive Antibody Screen NEGATIVE 06/15/24 06/15/24 06/15/24 Range/Units 14:06 12:50 12:48 WBC 9.84 (4.8-10.8) K/ul RBC 4.72 (4.20-5.40) M/uL Hgb 13.0 (12.0-16.0) g/dl Hct 38.9 (37.0-47.0) % MCV 82.4 (80.0-100.0) fL MCH 27.5 (25.0-34.0) pg MCHC 33.4 (32.0-36.0) g/dL RDW Std Deviation 48.2 H (36.4-46.3) fL RDW Coeff of Ladi 16.0 H (11.5-14.5) % Plt Count 248 (130-400) K/uL MPV 9.2 L (9.4-12.4) fL Immature Gran % (Auto) % Neut % (Auto) % Lymph % (Auto) % [place] % (Auto) % Eos % (Auto) % Baso % (Auto) % Neut # (Auto) (1.40-6.50) K/uL Lymph # (Auto) (1.20-3.40) K/uL [place] # (Auto) (0.11-0.59) K/uL Eos # (Auto) (0.00-0.50) K/uL Baso # (Auto) (0.00-0.20) K/uL Immature Gran # (Auto) (0.01-0.20) K/uL PT 29.6 H (9.0-12.0) Seconds INR 3.0 H (0.9-1.1) APTT 34 H (21-31) Seconds PTT Ratio 1.3 Sodium 136 (136-145) mmol/L Potassium 3.5 (3.5-5.1) mmol/L Chloride 98 (98-107) mmol/L Carbon Dioxide 26 (21-32) mmol/L Anion Gap 12 H (3-11) BUN 36 H (6-23) mg/dl Creatinine 2.06 H (0.6-1.2) mg/dl Est Cr Clr Drug Dosing 24.0 ml/min eGFR 24.68 BUN/Creatinine Ratio 17.5 (10-20) Glucose 142 H (70-99(Fasting)) mg/dl Calcium 9.0 (8.6-10.3) mg/dl Total Bilirubin 0.5 (0.2-1.0) mg/dl AST 25 (13-39) U/L ALT 16 (7-52) U/L Alkaline Phosphatase 86 (34-104) U/L Troponin I High Sens 26.1 H (0-14) pg/ml B-Natriuretic Peptide 66 (0-100) pg/ml Total Protein 7.4 (6.0-8.3) gm/dl Albumin 4.3 (3.4-5.0) gm/dl Globulin 3.1 (2.5-4.0) gm/dl Albumin/Globulin Ratio 1.4 (0.9-2) Urine Color Urine Appearance (Clear) Urine pH (4.5-7.5) Ur Specific [place] (1.000-1.030) Urine Protein (Negative) Urine Glucose (UA) (Negative) Urine Ketones (Negative) Urine Blood (Negative) Urine Nitrite (Negative) Urine Bilirubin (Negative) Urine Urobilinogen (Negative) Ur Leukocyte Esterase (Negative) Urine WBC (Auto) (0-5) /hpf Urine RBC (Auto) (0-2) /hpf U Hyaline Cast (Auto) (0-2) /lpf U Epithel Cells (Auto) (0-2) /hpf Urine Bacteria (Auto) (None Seen) POC Stool Occult Blood (Negative) SARS-CoV-2 (PCR) NEGATIVE (Negative) Hepatitis C Ab Screen Influenza Type A (PCR) Negative (Neg) Influenza Type B (PCR) Negative (Neg) RSV (RT-PCR) Negative (Neg) Blood Type Antibody Screen Diagnostic Findings Abdomen/Pelvis CT 06/15/24 13:[address] WITHOUT CONTRAST CT DOSE: 2034 HISTORY: CLARENCE, gi bleed TECHNIQUE: Multiaxial CT images of the abdomen and pelvis were performed without contrast. A dose lowering technique was utilized adhering to the principles of ALARA. COMPARISON STUDY: 10/16/2019 FINDINGS: Abel: Liver, gallbladder, spleen, pancreas, and adrenal glands have an unremarkable non-IV contrasted appearance. There are a few stable likely small renal cysts. There is no hydronephrosis or renal calculi. There are scattered atherosclerotic calcifications. No abdominal aortic aneurysm. Pelvis: Uterus and adnexa are grossly unremarkable. Urinary bladder is nondistended. There is a small amount of gas within the urinary bladder, suggest clinical correlation for recent bladder instrumentation. There is sigmoid diverticulosis. No acute diverticulitis. There is moderate retained stool. No bowel inflammation or obstruction seen. No free fluid or free air. No enlarged adenopathy. Osseous structures: There is lumbar degenerative disc disease with grade 1 anterolisthesis of L4 on 5. No acute osseous findings. There is minimal scoliosis. IMPRESSION: No acute findings. ACT 112: Negative or not required by law. The above report was generated using voice recognition software. It may contain grammatical, syntax or spelling errors. Electronically signed by: Abdifatah Velez M.D. 06/15/2024 2:[address] 06/15/24 13:43 CT chest diagnostic wo con CT DOSE: 5.87 mGy.cm CLINICAL HISTORY: 73 years-old Female with sob, GI bleed, CLARENCE, CP. Acute shortness of breath with GI bleed TECHNIQUE: Multiaxial CT images of the chest were performed without contrast. A dose lowering technique was utilized adhering to the principles of ALARA. COMPARISON: CTA chest 02/07/2024 FINDINGS: Heterogeneous thyroid. Cardiomegaly with prior median sternotomy, CABG and prosthetic aortic valve. Extensive big sandy coronary artery calcifications. No pericardial effusion or thoracic aortic aneurysm. There is no lymphadenopathy. Descending thoracic aortic tortuosity. No pneumothorax, pleural effusion, airspace consolidation or pulmonary edema. Mild subpleural reticulation within the lateral right lung suggestive of scarring. There are no suspicious pulmonary nodules or masses. Central airways appear patent. No acute upper abdominal abnormality. Degenerative changes of the shoulders and spine. No acute fracture. IMPRESSION: 1. No acute intrathoracic abnormality. 2. No pleural effusion or airspace consolidation typical for pneumonia. ACT 112: Negative or not required by law. Electronically signed by: John Valdez M.D. 06/15/2024 2:17 PM
--- NOTE | 2024-06-16 10:31 | Cardiology Consultation ---
Date of Consultation June 16, 2024 Assessment & Plan (1) Coronary artery disease: (2) PAF (paroxysmal atrial fibrillation): Plan 1. Aortic stenosis: She appears to have undergone a successful bioprosthetic aortic valve replacement in October 2023. However, the transvalvular gradients seem somewhat high. In fact, the gradients are identical to those obtained prior to her valve replacement. Not severe. 2. Coronary disease: She underwent two-vessel bypass at the time of aortic valve replacement in October 2023. No current symptoms suggestive of angina. She should continue aggressive secondary prevention with anticoagulation and high-dose rosuvastatin. 3. Atrial fibrillation: Seen in the postoperative period. Also remote history of atrial fibrillation in the setting of pulmonary emboli. No documented atrial fibrillation since that time. Brief episodes of "atrial fibrillation" described to the patient that are relatively fleeting in nature. Unclear if she requires continued anticoagulation from this standpoint, but she does have a history of recurrent pulmonary embolus and DVT which requires continued anticoagulation. She is being transition to Eliis due to difficulties controlling the INR while on amiodarone. Unfortunately, there appears to have been some confusion regarding her medications. 4. Dyspnea on exertion: Likely a pulmonary source. Preserved LV systolic function, abnormal aortic valve gradients, but not severe. BNP obtained at this time admission also normal. While she may have an element of gastrointestinal hemorrhage, overall hemoglobin levels generally normal. Holter monitoring demonstrated normal heart rate response without notable chronotropic incompetence. with respect to anticoagulation, from a cardiac standpoint she has PAF and anticoagulation could be interrupted for brief periods if necessary. More co ncerning is her history of venous thromboembolic disease. Interruption of anticoagulation should be limited in this regard and additional measures (ie mechanical) should be considered in the interim. History of Present Illness Reason for Consultation: Dyspnea, orthostasic hypotension. Requesting Physician: Von Attending Physician: Julio Naqvi MD History of Present Illness The patient is a 73-year-old woman with a history of aortic stenosis and coronary artery disease who underwent operative intervention in October 2023. This involved a bioprosthetic AVR and two-vessel bypass. In the postoperative period she had atrial fibrillation and was placed on amiodarone. She is also been on systemic anticoagulation for history of DVT and recurrent pulmonary e mbolus. It seems that the patient's presenting symptoms prior to valve surgery involve dyspnea on exertion. She states that she occasionally had some chest pains but this did not appear to be a primary feature of her presentation. Subsequent to the surgery she noted an improvement in her symptoms but does have some persistent dyspnea. She states that when she walks long distances she continues to get short of breath. This limits some of her activity. With mild activity and even ascending stairs she does not have significant breathing difficulty. No exertional chest pain at this point. She denies symptoms of dizziness and lightheadedness. She occasionally has episodes of "atrial fibrillation" which she describes as brief and relatively fleeting palpitations. No documented atrial fibrillation. No home monitoring of her heart rate. Yesterday she reportedly presented for routine evaluation in the outpatient setting and described some bloody stool. She was also felt to have an element of orthostatic hypotension and sent to the emergency room due to concerns about bleeding. She was discovered to have an elevated INR and there was some concern about medication noncompliance. She reports taking Eliquis at this time but according to the pharmacist has not yet picked up that prescription. This morning she is feeling well. She denies breathing difficulty at rest. No orthopnea. She is not having any palpitations. No abdominal complaints. She tolerated breakfast without incident. Allergies Allergy/AdvReac Type Severity Reaction Status Date / Time nitroglycerin Allergy Severe pruritis, Verified 11/04/23 09:32 headache, vomiting with patch (see comments) latex Allergy Mild rash Verified 11/04/23 09:32 potassium chloride AdvReac Mild "did not Verified 11/04/23 09:32 tolerate" IV potassium Home Medications Medication Instructions Recorded Confirmed Type ondansetron HCl 4 mg tablet 4 mg PO TID PRN Nausea 02/08/18 06/15/24 History pantoprazole 40 mg tablet,delayed 40 mg PO BID 02/08/18 06/15/24 History release amlodipine 10 mg tablet 10 mg PO QPM 12/04/20 06/15/24 History famotidine 20 mg tablet 20 mg PO QAM 08/14/22 06/15/24 History ropinirole 4 mg tablet 4 mg PO HS 08/14/22 06/15/24 History esomeprazole magnesium 40 mg 40 mg PO QAM 08/10/23 06/15/24 History capsule,delayed release hydroxyzine HCl 10 mg tablet 10 mg PO BID PRN Anxiety 08/10/23 06/15/24 History valsartan 320 mg tablet 320 mg PO QAM 08/10/23 06/15/24 History fluoxetine 10 mg capsule 10 mg PO QAM 04/25/24 06/15/24 History gabapentin 100 mg capsule 200 mg PO TID 04/25/24 06/15/24 History amiodarone 200 mg tablet 100 mg PO QAM 06/15/24 06/15/24 History apixaban 5 mg tablet (Eliquis) 5 mg PO BID 06/15/24 06/15/24 History furosemide 40 mg tablet 40 mg PO QAM 06/15/24 06/15/24 History rosuvastatin 40 mg tablet 40 mg PO HS 06/15/24 06/15/24 History Patient History Medical History Gastric volvulus History of colon polyps Hx pulmonary embolism 09/2019- on Eliquis Anxiety and depression History of COVID-19 11/2020; cough, congestion, loss of taste, fatigue; c/o ongoing fatigue Atrial fibrillation single episode 09/2019 converted with IV amiodarone in setting of PNA/PE Follows with [facility] Cardiology Osteoporosis PAF (paroxysmal atrial fibrillation) Hyponatremia Tremor benign essential tremor (left hand)- controlled History of blood transfusion after each childbirth--last 1984 Restless leg Balance problem under surveillance by PCP, no definitive diagnosis History of endometriosis Panic attacks Premature ventricular contractions (PVCs) (VPCs) Hyperlipidemia Reactive airway disease LAMBERTO (iron deficiency anemia) Surgical History H/O foot surgery Right foot first tarsometatarsal joint arthrodesis with application of Lapiplasty plates History of anesthesia reaction difficulty waking History of esophagogastroduodenoscopy (EGD) Hx of colonoscopy last 05/2021 @ [facility] History of surgery ENDOMETRIOMA REMOVAL + PARTIAL UNILATERAL OOPHORECTOMY + APPENDECTOMY History of hernia repair open ventral hernia repair: 07/20/18: Grade view 1, MAC#3, ETT 7.0 at [facility] History of bladder suspension procedure History of tooth extraction History of surgical removal of ganglion cyst LEFT WRIST S/p bilateral blepharoplasty History of cardiac cath X2; 15+ years ago- no stents Family History Grandmother (Paternal) Family hx of colon cancer Grandmother (Maternal) Family hx of colon cancer Other No family history of adverse response to anesthesia Social History Smoking Status: Never smoker Second Hand Exposure: No; Do You Dip or Chew Tobacco: No; Hx Alcohol Use: No Hx Substance Use: No Preferred Language: Filipino Communication Ability: Effective Cloth Bin Packer Required: No Beliefs That Will Affect Care: None Current Living Situation: Spouse 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 Mood affect appear normal. She answered all questions appropriately. HEENT: Sclerae are anicteric. Pupils are equal and reactive to light and accommodation. Extraocular movements were intact. Neuro: Cranial nerves intact Lungs: Lungs are clear to auscultation bilaterally. There are no rales wheezes or rhonchi. She has normal respiratory effort without use of accessory muscles. There is normal pulmonary excursion. Cardiac: The rhythm was regular. S1 and S2 were normal. Soft crescendo systolic murmur. The PMI was not markedly displaced on palpation. Abdomen: The abdomen was soft and nontender. Extremities: Patient has bilateral radial pulses that are equal in intensity. There is no evidence cyanosis or clubbing. There was no evidence of significant peripheral edema bilaterally. Skin: There are no rashes noted on examination today. Results & Data Vital Signs (Past 12 Hours) Vital Signs Temp Pulse Pulse Resp BP Pulse Ox O2 Del Method 06/16/24 07:18 36.6 C 85 18 122/72 97 Room Air 06/16/24 07:00 82 06/16/24 04:00 36.6 C 77 16 114/72 94 Room Air 06/16/24 00:00 88 06/16/24 00:00 37.1 C 81 16 105/64 93 Room Air 06/15/24 22:49 36.7 C 80 16 122/88 97 Room Air Laboratory Results Abnormal Lab Results 06/15/24 06/15/24 06/15/24 12:48 12:50 14:06 WBC 9.84 RBC 4.72 Hgb 13.0 Hct 38.9 MCV 82.4 MCH 27.5 MCHC 33.4 RDW Std Deviation 48.2 H RDW Coeff of Ladi 16.0 H Plt Count 248 MPV 9.2 L Immature Gran % (Auto) Neut % (Auto) Lymph % (Auto) [place] % (Auto) Eos % (Auto) Baso % (Auto) Neut # (Auto) Lymph # (Auto) [place] # (Auto) Eos # (Auto) Baso # (Auto) Immature Gran # (Auto) PT 29.6 H INR 3.0 H APTT 34 H PTT Ratio 1.3 Sodium 136 Potassium 3.5 Chloride 98 Carbon Dioxide 26 Anion Gap 12 H BUN 36 H Creatinine 2.06 H Est Cr Clr Drug Dosing 24.0 eGFR 24.68 BUN/Creatinine Ratio 17.5 Glucose 142 H Calcium 9.0 Total Bilirubin 0.5 AST 25 ALT 16 Alkaline Phosphatase 86 Troponin I High Sens 26.1 H B-Natriuretic Peptide 66 Total Protein 7.4 Albumin 4.3 Globulin 3.1 Albumin/Globulin Ratio 1.4 Urine Color Urine Appearance Urine pH Ur Specific Nadeau Urine Protein Urine Glucose (UA) Urine Ketones Urine Blood Urine Nitrite Urine Bilirubin Urine Urobilinogen Ur Leukocyte Esterase Urine WBC (Auto) Urine RBC (Auto) U Hyaline Cast (Auto) U Epithel Cells (Auto) Urine Bacteria (Auto) POC Stool Occult Blood SARS-CoV-2 (PCR) NEGATIVE Influenza Type A (PCR) Negative Influenza Type B (PCR) Negative RSV (RT-PCR) Negative Blood Type Antibody Screen 06/15/24 06/15/24 06/15/24 14:16 16:40 17:10 WBC RBC Hgb Hct MCV MCH MCHC RDW Std Deviation RDW Coeff of Ladi Plt Count MPV Immature Gran % (Auto) Neut % (Auto) Lymph % (Auto) [place]ois % (Auto) Eos % (Auto) Baso % (Auto) Neut # (Auto) Lymph # (Auto) [place]ois # (Auto) Eos # (Auto) Baso # (Auto) Immature Gran # (Auto) PT INR APTT PTT Ratio Sodium Potassium Chloride Carbon Dioxide Anion Gap BUN Creatinine Est Cr Clr Drug Dosing eGFR BUN/Creatinine Ratio Glucose Calcium Total Bilirubin AST ALT Alkaline Phosphatase Troponin I High Sens 29.0 H B-Natriuretic Peptide Total Protein Albumin Globulin Albumin/Globulin Ratio Urine Color Yellow Urine Appearance Clear Urine pH 5.5 Ur Specific Nadeau 1.010 Urine Protein Negative Urine Glucose (UA) Negative Urine Ketones Negative Urine Blood Negative Urine Nitrite Negative Urine Bilirubin Negative Urine Urobilinogen Negative Ur Leukocyte Esterase 1+ H Urine WBC (Auto) 0-5 Urine RBC (Auto) 0-2 U Hyaline Cast (Auto) 0-2 U Epithel Cells (Auto) 0-2 Urine Bacteria (Auto) 4+ H POC Stool Occult Blood SARS-CoV-2 (PCR) Influenza Type A (PCR) Influenza Type B (PCR) RSV (RT-PCR) Blood Type A Positive Antibody Screen NEGATIVE 06/15/24 06/16/24 06/16/24 17:58 05:40 07:50 WBC 7.76 RBC 4.22 Hgb 11.6 L Hct 35.7 L MCV 84.6 MCH 27.5 MCHC 32.5 RDW Std Deviation 50.3 H RDW Coeff of Ladi 16.2 H Plt Count 217 MPV 9.3 L Immature Gran % (Auto) 0.3 Neut % (Auto) 55.1 Lymph % (Auto) 29.4 [place]roquois % (Auto) 10.8 Eos % (Auto) 3.2 Baso % (Auto) 1.2 Neut # (Auto) 4.28 Lymph # (Auto) 2.28 [place]ois # (Auto) 0.84 H Eos # (Auto) 0.25 Baso # (Auto) 0.09 Immature Gran # (Auto) 0.02 PT 29.7 H INR 3.0 H APTT PTT Ratio Sodium 139 Potassium 3.1 L Chloride 102 Carbon Dioxide 29 Anion Gap 8 BUN 28 H Creatinine 1.21 H D Est Cr Clr Drug Dosing 40.9 eGFR 46.74 BUN/Creatinine Ratio 23.1 H Glucose 109 H Calcium 8.7 Total Bilirubin 0.5 AST 21 ALT 13 Alkaline Phosphatase 80 Troponin I High Sens 21.6 H B-Natriuretic Peptide Total Protein 6.6 Albumin 3.8 Globulin 2.8 Albumin/Globulin Ratio 1.4 Urine Color Urine Appearance Urine pH Ur Specific Nadeau Urine Protein Urine Glucose (UA) Urine Ketones Urine Blood Urine Nitrite Urine Bilirubin Urine Urobilinogen Ur Leukocyte Esterase Urine WBC (Auto) Urine RBC (Auto) U Hyaline Cast (Auto) U Epithel Cells (Auto) Urine Bacteria (Auto) POC Stool Occult Blood Positive A SARS-CoV-2 (PCR) Influenza Type A (PCR) Influenza Type B (PCR) RSV (RT-PCR) Blood Type Antibody Screen Diagnostic Findings Chest CT and abdominal CT were both performed. Neither demonstrate any acute abnormality. Cardiac catheterization 11/04/2023: Severe multivessel coronary disease involving the ostial left main, OM2, LAD and first diagonal branch. Coronary artery bypass grafting and bioprosthetic aortic valve replacement 10/2023 with 21 mm pericardial tissue valve, UNGER to LAD and saphenous vein graft to OM1 Echocardiogram 06/16/2024: Normal left ventricular systolic function with ejection fraction of 60 to 65%. Mild left atrial dilation. Bioprosthetic aortic valve with elevated gradients, moderate valvular aortic stenosis, moderate tricuspid regurgitation with normal RV filling pressures. PG Care Time/CCT Total # of Minutes Spent Total Time Spent with Patient: Total time spent is greater than 50% in coordination of care (as documented) at patient's floor/unit and/or counseling patient: Coding Level of Care Code 84927 INT INP/OBS CARE 3/75MIN Diagnoses Coronary artery disease I25.10 PAF (paroxysmal atrial fibrillation) I48.0
--- NOTE | 2024-06-16 11:36 | XCELERA ---
[id number]
[2024-06-16] MEDS: POTASSIUM CHLORIDE 20 MEQ/15 ML UDC PO SCH (11:49)
--- NOTE | 2024-06-16 18:29 | Electrocardiogram Report ---
Test Reason : Blood Pressure : */* mmHG Vent. Rate : 78 BPM Atrial Rate : 78 BPM P-R Int : 128 ms QRS Dur : 96 ms QT Int : 404 ms P-R-T Axes : -56 17 171 degrees QTcB Int : 460 ms Normal sinus rhythm Abnormal ECG When compared with ECG of 15-Jun-2024 12:39, Nonspecific T wave abnormality, worse in Anterior leads Confirmed by Julio Harper ([id number]) on 06/16/2024 6:29:46 PM Referred By: REFERRED SELF Confirmed By: Julio Harper
[2024-06-16] MEDS: rOPINIRole HCL 2 MG TABLET PO SCH (20:48)
[2024-06-16] MEDS: MELATONIN 3 MG TAB PO PRN (20:52)
[2024-06-16] MEDS: hydrOXYzine HCl 10 MG TAB PO PRN (20:57)
[2024-06-17 00:25] VITALS: RESP 18
[2024-06-17 06:34] LABS: Basophils % (auto) 1.4 %; Eosinophils # (auto) 0.27 K/uL (0.00-0.50); Eosinophils % (auto) 3.9 %; Hematocrit (blood only) 34.7 % (37.0-47.0); Hemoglobin 11.2 g/dl (12.0-16.0); Immature Granulocytes # (auto) 0.02 K/uL (0.01-0.20); Immature Granulocytes % (auto) 0.3 %; Lymphocytes # (auto) 2.57 K/uL (1.20-3.40); Lymphocytes % (auto) 37.2 %; Mean Corpuscular Hemoglobin 27.5 pg (25.0-34.0); Mean Corpuscular Hgb Conc 32.3 g/dL (32.0-36.0); Mean Platelet Volume 9.2 fL (9.4-12.4); Monocytes # (auto) 0.65 K/uL (0.11-0.59); Monocytes % (auto) 9.4 %; Neutrophils # (auto) 3.29 K/uL (1.40-6.50); Neutrophils % (auto) 47.8 %; Platelet Count 219 K/uL (130-400); RDW Standard Deviation 50.1 fL (36.4-46.3); Red Blood Count 4.08 M/uL (4.20-5.40)
[2024-06-17 06:37] LABS: Albumin Globulin Ratio 1.4 (0.9-2); Albumin Level 3.7 gm/dl (3.4-5.0); BUN Creatinine Ratio 23.2 (10-20); Bilirubin,Total 0.4 mg/dl (0.2-1.0); Calcium 8.8 mg/dl (8.6-10.3); Globulin 2.6 gm/dl (2.5-4.0); Potassium 3.3 mmol/L (3.5-5.1); Total Protein 6.3 gm/dl (6.0-8.3)
[2024-06-17 06:55] LABS: INR 2.6 (0.9-1.1); Prothrombin Time 25.7 Seconds (9.0-12.0)
[2024-06-17 07:12] VITALS: BP 128/76; TEMP 97.9; O2SAT 96
--- NOTE | 2024-06-17 09:27 | Discharge Summary ---
Discharge Summary Date of Service June 17, 2024 Principal Dx & Hospital Course #1 = Principal Diagnosis (1) Elevated INR: (2) Bloody stools: Plan Brook is a 73 Y O Female with PMH of CAD S/P stent , Recent Open Heart Surgery(October 2023) with AVR, Obesity with BMI 39.9, Hypertension, Pulmonary Embolism, Hyperlipidemia, Restless Leg Syndrome, Anxiety with Panic Disorder, Major Depressive disorder,Ataxia, Essential Tremor, Peripheral Neuropathy, Urinary Incontinence, Osteoarthritis presented today after she was referred from cardiology office for orthostatic hypotension.She is admitted for Acute GI Bleed, Shortness of Breath with exertion S/P recent open heart surgery #Acute GI Bleed without anemia -GI consultation. Appreciate GI recs. No need of endoscopy or colonoscopy on inpatient stay -Hold Eliquis in the setting of acute GI Bleed; patient will ultimately need to restart this medicine, will defer to PCP. -Hgb stable #Shortness of breath #Recent open heart surgery on AC -Reports some pressure sensation in left chest and upper left arm since a week -CT chest: reveals no acute intrathoracic abnormality - EKG reveals new onset T wave inversion in inferior lead. Repeat EKG in the AM: no changes -Troponin downtrending - Has recent open heart surgery for AVR (Oct 2023) -Cardiology consultation. Appreciate Cardio recs: holding valsartan, amiodarone and lasix. will defer to PCP as to when this will be continue #Supratherapeutic INR -INR: 3 -No evidence of liver abnormality or liver disease -Patient is adamant that she is taking Eliquis -Previous hospitalist service was concerned that she may be taking warfarin. #Orthostatic hypotension(Resolved) #CLARENCE(Resolved) #Chronic Conditions Hypertension: Continue Amlodipine Hyperlipidemia: Continue Rosuvastatin Restless leg syndrome:Continue Ropinirole GERD: will hold home meds. Give protonix IV BID Peripheral Neuropathy: Continue Gabapentin Anxiety and Depression: Continue Hydroxyzine and Fluoxetine Admission HPI Per Admitting Provider Brook is a 73 Y O Female with PMH of CAD S/P stent , Recent Open Heart Surgery(October 2023) with AVR, Obesity with BMI 39.9, Hypertension, Pulmonary Embolism, Hyperlipidemia, Restless Leg Syndrome, Anxiety with Panic Disorder, Major Depressive disorder,Ataxia, Essential Tremor, Peripheral Neuropathy, Urinary Incontinence, Osteoarthritis presented today referred from cardiology office for orthostatic hypotension. She reports having symptoms since a week. She had 1 episode of vomiting in past 1 week with bright red color blood and was black in color .She also reports having blood in stool since a week. She denies bleeding from nose, gums and other sites She also reports SOB for about a month but worsening since a week. Shortness of breath aggravated with exertion and relieved on rest. Has a little bit of pressure in left chest and upper arm. Denies palpitations . Has history of chronic cough. Has occasional incontinence and has multiple day she doesn't urinate in the past. But not having issues with urination currently. Denies abdominal pain or syncope Her Last ER visit was on end of March for supratherapeutic INR. After this recent visit, Warfarin was stopped and she was started on Eliquis. She feels week currently. Her last dose of Eliquis was yesterday night. Her appetite is decreased and she is eating a lot less since a week. Normal bowel movement. Denies smoking and alcohol She lives with her . Discharge Exam Constitutional WD/WN, vitals as above Eyes PERRL, conjunctivae normal, anicteric sclerae Neck trachea midline, no thyromegaly Cardiovascular RRR, no murmur, no edema Gastrointestinal (Abdomen) normal bowel sounds, soft, nontender, no hepatosplenomegaly Discharge Plan Discharge Items Patient Disposition: Home - Self-Care Reason For Visit: GIB, Discharge Diagnosis: GIB Activity: Resume your previous activity Non-emergency contact: Primary Care Provider Call non-emergency contact if: you have any medication questions Follow-up/Referrals: Cierra Lincoln MD [Primary Care Provider] - Diet: Heart Healthy Addtl Attending Provider Instructions: You had an elevated INR and had a GI bleed. Will recommend close followup with PCP within one week. Also recommend followup with Cardiology. WIll hold Eliquis, amiodarone, furosemide and valsartan. Pending Studies at Discharge: No Stand-Alone Forms: My Made[employer], Smoking Cessation Medications and IA Order Prescriptions: Continued ondansetron HCl 4 mg tablet 4 mg PO TID PRN (Reason: Nausea) pantoprazole 40 mg tablet,delayed release (DR/EC) 40 mg PO BID amlodipine 10 mg tablet 10 mg PO QPM famotidine 20 mg tablet 20 mg PO QAM ropinirole 4 mg tablet 4 mg PO HS rosuvastatin 40 mg tablet 40 mg PO HS esomeprazole magnesium 40 mg capsule,delayed release(DR/EC) 40 mg PO QAM hydroxyzine HCl 10 mg tablet 10 mg PO BID PRN (Reason: Anxiety) fluoxetine 10 mg capsule 10 mg PO QAM gabapentin 100 mg capsule 200 mg PO TID Held Eliquis 5 mg Tablet 5 mg PO BID Hold Instructions: Provider's Order Hold anticoagulation until cleared by PCP. furosemide 40 mg tablet 40 mg PO QAM Hold Instructions: Provider's Order until cleared by PCP amiodarone 200 mg tablet 100 mg PO QAM Hold Instructions: Provider's Order until cleared by PCP valsartan 320 mg Tablet 320 mg PO QAM Hold Instructions: Provider's Order until seen by PCP Discharge Orders: Discharge Order (Routine); Ordered 06/17/24 Ordered By: Ion Pena Discharge Order- CHF (Routine); Ordered 06/17/24 Ordered By: Ion Pena Admission Data Admit Date/Time: 06/15/24 18:26 Attending Provider: Ion Pena Admit Provider: Parviz Longoria Primary Care Provider: Cierra Lincoln Other Providers: Parviz Longoria; Kimber Washington Jr; Julio Harper Other Interventions: Discharge Summary Assessment (RN) Last Done: 06/17/24 10:49 Hospital Stay Data Consultations 06/15/24 15:28 ED Decision to Admit Stat 06/15/24 21:44 Consult Cardiology Routine Consult Gastroenterology Routine Diagnostic Imagining Performed 06/15/24 13:43 CT abd pelvis wo con Stat CT chest diagnostic wo con Stat Pending Results Patient Have Any Pending Studies at Discharge: No Discharge Instructions Given to Patient (Per Discharging Provider) You had an elevated INR and had a GI bleed. Will recommend close followup with PCP within one week. Also recommend followup with Cardiology. WIll hold Eliquis, amiodarone, furosemide and valsartan. Total Time Total Time Spent Total Time Spent (In Minutes): 32 Coding Level of Care Code 35578 INP/OBS DISCH >30 MIN Diagnoses Elevated INR R79.1 Bloody stools K92.1
--- NOTE | 2024-06-17 10:15 | Gastroenterology Progress Note ---
Date of Service June 17, 2024 Assessment & Plan (1) Bloody stools: Plan: She just had that isolate episode of bleeding from UGI tract, rectum and bladder. Likely related to coagulation status. I don't plan evaluation at this time as she has had procedures in the not too distant past Admission and Anticipated Discharge Date Admission Date: June 15, 2024 Subjective Feels well. No more bleeding. INR down a tad Physical Exam Physical Exam: She looks well Constitutional: WD/WN, vitals as above Results & Data Vital Signs (Past 12 Hours) Vital Signs Temp Pulse Pulse Resp BP Pulse Ox O2 Del Method 06/17/24 07:12 36.6 C 69 18 128/76 96 Room Air 06/17/24 07:00 76 06/17/24 04:00 36.7 C 75 18 108/67 93 Room Air 06/17/24 00:00 36.6 C 84 18 112/72 95 Room Air
[2024-06-17 11:02] VITALS: PULSE 69
== END 2024-06-17 11:49 | disposition home or self-care (01) ==
LOC: ED 12:08 → EDINP 18:26 → INTOOBSV 18:26 → SUATTDRO 18:26 → 2E 21:45
DX: R32 Unspecified urinary incontinence; G62.9 Polyneuropathy, unspecified; R53.1 Weakness; I95.1 Orthostatic hypotension; Z98.890 Other specified postprocedural states; E66.9 Obesity, unspecified; R79.1 Abnormal coagulation profile; F41.0 Panic disorder [episodic paroxysmal anxiety]; I48.0 Paroxysmal atrial fibrillation; I35.0 Nonrheumatic aortic (valve) stenosis; K21.9 Gastro-esophageal reflux disease without esophagitis; K92.2 Gastrointestinal hemorrhage, unspecified; I10 Essential (primary) hypertension; F32.9 Major depressive disorder, single episode, unspecified; R79.89 Other specified abnormal findings of blood chemistry; Z79.01 Long term (current) use of anticoagulants; Z95.5 Presence of coronary angioplasty implant and graft; G25.81 Restless legs syndrome; Z79.899 Other long term (current) drug therapy; I25.10 Atherosclerotic heart disease of native coronary artery without angina pectoris; Z88.8 Allergy status to other drugs, medicaments and biological substances; N17.9 Acute kidney failure, unspecified; E78.5 Hyperlipidemia, unspecified; Z91.040 Latex allergy status

== ENCOUNTER 2024-09-05 16:52 | Observation (INO) ==
--- NOTE | 2024-09-05 17:14 | Emergency Department Note ---
Impression & Plan Generalized weakness, CLARENCE (acute kidney injury), Hypokalemia, Elevated troponin, GI bleed ED Provider Note HISTORY OF PRESENT ILLNESS: Patient is a 73-year-old female presenting with hematemesis, hematuria and bloody stool. Patient reports that symptoms have been ongoing for the last 4 days. Reports feeling very lightheaded and dizzy and also very short of breath. She takes Eliquis daily. Patient was just discharged from the hospital a few weeks ago for similar symptoms. Patient denies any fevers. Reports right lower quadrant abdominal pain. Reports that every time she vomits she has significant amounts of bright red blood and also now passing clots in her vomit. She reports that when she urinates it is bright red. Patient denies any recent sick contact exposures. She reports that she had significant reflux throughout the night last night and she thinks that is contributing to her bloody vomit. She states that "I just need to sleep I am so tired." ROS: as above PHYSICAL EXAM: Constitutional: Patient appears in no acute distress. HENT: Head: Normocephalic and atraumatic. Eyes: EOMI, PERRL Mouth/Throat: Mucous membranes moist. Neck: Trachea midline. Neck supple. Cardiovascular: RRR, No murmurs, rubs or gallops. Intact distal pulses. Pulmonary/Chest: No respiratory distress. Breath sounds clear and equal bilaterally. No wheezes or rales. Abdominal: Abdomen soft, no tenderness, rebound or guarding. Musculoskeletal: No edema, tenderness or deformity noted. Skin: Warm and dry. No rash, erythema, pallor or cyanosis Psychiatric: Appropriate mood and affect for situation. Neurological: Alert and keenly responsive. CN II-XII grossly intact, moving all extremities equally and fully. MDM: - Vitals signs stable. - History obtained via patient. History as above. - Chronic conditions affecting care: GERD; HTN; CVA; HLD; depression; CAD; hx of PE - Differential diagnoses include, but are not limited to: gastritis; coagulopathy; bleeding peptic ulcer; bowel obstruction; dehydration - Order placed for continuous cardiac monitoring. At this time, monitor showed rate of 82 bpm with normal sinus rhythm, per my interpretation. - External medical records reviewed. Discharge summary dated 07/31/2024 was reviewed. Patient was admitted for an acute GI bleed. She had an EGD performed on 07/30/2024 and a colonoscopy on 07/30/2024. There were multiple diverticula within the sigmoid colon. - EKG image interpreted by myself showed normal sinus rhythm. Rate 86 bpm. QT 422. No acute ischemic changes. - Laboratory workup interpreted by myself showed normal WBC; normal PT/INR; hypokalemia (K 3.1); elevated anion gap (14); CLARENCE (Cr 1.25); elevated BUN (31); elevated troponin (17.8); normal lipase - UA negative for obvious infection. Noted to have ketonuria - CT abdomen/pelvis with IV contrast showed no acute findings. - Patient given 4 mg IV zofran and 80 mg IV protonix in ER. - Discussion was had with employment evaluator/case manager about patient's case and need for admission - Hospitalist, Dr. Moore, consulted for admission - Patient admitted to [facility] Hospitalist service for further evaluation and management. ASSESSMENT AND PLAN: Diagnosis: Generalized weakness; CLARENCE; acute hypokalemia; elevated troponin; GI bleed Plan: Admit Past Med/Surg History Problem List (Updated 09/05/24 @ 22:20 by Martha Messina MD) GI bleed (Acute) Elevated troponin (Acute) Hypokalemia (Acute) CLARENCE (acute kidney injury) (Acute) Generalized weakness (Acute) Elevated INR (Acute) CLARENCE (acute kidney injury) (Acute) Bloody stools (Acute) Weakness (Acute) Coronary artery disease Gait apraxia Obesity Restless legs syndrome (Chronic) Panic disorder (Chronic) Major depressive disorder, single episode, unspecified (Chronic) Lumbago (Chronic) Hyperlipidemia, unspecified (Chronic) Chronic pain of left knee (Chronic) Anxiety disorder, unspecified (Chronic) Essential tremor Cerebrovascular disease Peripheral neuropathy Endometrial thickening on ultrasound Perioral tremor Urinary incontinence Osteoarthritis of right foot Hallux valgus (acquired), right foot Hammertoe of second toe of right foot Idiopathic scoliosis (Chronic) Status post Hank fundoplication Depression GERD (gastroesophageal reflux disease) has chronic cough HTN (hypertension) Medical History Gastric volvulus History of colon polyps Hx pulmonary embolism 09/2019- on Eliquis Anxiety and depression History of COVID-19 11/2020; cough, congestion, loss of taste, fatigue; c/o ongoing fatigue Atrial fibrillation single episode 09/2019 converted with IV amiodarone in setting of PNA/PE Follows with [facility] Cardiology Osteoporosis PAF (paroxysmal atrial fibrillation) Hyponatremia Tremor benign essential tremor (left hand)- controlled History of blood transfusion after each childbirth--last 1984 Restless leg Balance problem under surveillance by PCP, no definitive diagnosis History of endometriosis Panic attacks Premature ventricular contractions (PVCs) (VPCs) Hyperlipidemia Reactive airway disease LAMBERTO (iron deficiency anemia) Surgical History H/O foot surgery Right foot first tarsometatarsal joint arthrodesis with application of Lapiplasty plates History of anesthesia reaction difficulty waking History of esophagogastroduodenoscopy (EGD) Hx of colonoscopy last 05/2021 @ [facility] History of surgery ENDOMETRIOMA REMOVAL + PARTIAL UNILATERAL OOPHORECTOMY + APPENDECTOMY History of hernia repair open ventral hernia repair: 07/20/18: Grade view 1, MAC#3, ETT 7.0 at [facility] History of bladder suspension procedure History of tooth extraction History of surgical removal of ganglion cyst LEFT WRIST S/p bilateral blepharoplasty History of cardiac cath X2; 15+ years ago- no stents Family History Grandmother (Paternal) Family hx of colon cancer Grandmother (Maternal) Family hx of colon cancer Other No family history of adverse response to anesthesia Social History Smoking Status: Never smoker Second Hand Exposure: No; Do You Dip or Chew Tobacco: No; Hx Alcohol Use: No Hx Substance Use: No Preferred Language: Georgian Communication Ability: Effective Manager Of Global Required: No Beliefs That Will Affect Care: None Current Living Situation: Spouse 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 Feels Safe at Home: Yes Assistive Devices: Cane Allergies Allergies Allergy/AdvReac Type Severity Reaction Status Date / Time nitroglycerin Allergy Severe pruritis, Verified 09/05/24 19:24 headache, vomiting with patch (see comments) latex Allergy Mild rash Verified 09/05/24 19:24 potassium chloride AdvReac Mild "did not Verified 09/05/24 19:24 tolerate" IV potassium Home Meds Home Medications Medication Instructions Recorded Confirmed amlodipine 10 mg tablet 10 mg PO QPM 12/04/20 09/05/24 famotidine 20 mg tablet 20 mg PO QAM 08/14/22 09/05/24 ropinirole 4 mg tablet 4 mg PO HS 08/14/22 09/05/24 esomeprazole magnesium 40 mg 40 mg PO QAM 08/10/23 09/05/24 capsule,delayed release hydroxyzine HCl 10 mg tablet 10 mg PO BID PRN Anxiety 08/10/23 09/05/24 apixaban 5 mg tablet (Eliquis) 5 mg PO BID 06/15/24 09/05/24 furosemide 40 mg tablet 40 mg PO QAM 06/15/24 09/05/24 rosuvastatin 40 mg tablet 40 mg PO HS 06/15/24 09/05/24 gabapentin 100 mg capsule 200 mg PO TID 09/05/24 09/05/24 metoprolol succinate 50 mg 50 mg PO QPM 09/05/24 09/05/24 tablet,extended release 24 hr Results & Data (ED) Vital Signs Vital Signs - 24 hr 09/05/24 16:54 09/05/24 17:12 09/05/24 17:12 Temperature 36.7 C Temperature Source Temporal Artery Scan Pulse Rate 90 Pulse Rate [Apical] 78 Pulse Rate from SpO2 Sensor Pulse Rhythm Pulse Rhythm [Apical] Regular Pulse Strength [Apical] Normal Respiratory Rate 20 18 Respiratory Effort / Characteristics Non-Labored Spontaneous Non-Labored Spontaneous Respiratory Depth Normal Normal Respiratory Pattern Regular Blood Pressure 125/86 Blood Pressure [Right Arm] 147/77 H Blood Pressure Mean 99 Blood Pressure Mean [Right Arm] 100 Blood Pressure Position [Right Arm] Lying Pulse Oximetry 95 96 97 Oxygen Delivery Method Room Air Room Air Room Air Sepsis Recent Fever Within 48 Hours No Sepsis New/Unexplained Change in Mental Status No Sepsis Action Taken by Nursing No Action Required 09/05/24 17:12 09/05/24 18:51 09/05/24 18:53 Temperature Temperature Source Pulse Rate 79 76 75 Pulse Rate [Apical] Pulse Rate from SpO2 Sensor 76 Pulse Rhythm Regular Pulse Rhythm [Apical] Pulse Strength [Apical] Respiratory Rate 16 17 Respiratory Effort / Characteristics Respiratory Depth Respiratory Pattern Blood Pressure Blood Pressure [Right Arm] Blood Pressure Mean Blood Pressure Mean [Right Arm] Blood Pressure Position [Right Arm] Pulse Oximetry 96 97 Oxygen Delivery Method Room Air Sepsis Recent Fever Within 48 Hours Sepsis New/Unexplained Change in Mental Status Sepsis Action Taken by Nursing 09/05/24 19:00 09/05/24 19:16 09/05/24 19:24 Temperature Temperature Source Pulse Rate 77 76 Pulse Rate [Apical] Pulse Rate from SpO2 Sensor 76 77 Pulse Rhythm Pulse Rhythm [Apical] Pulse Strength [Apical] Respiratory Rate 15 12 Respiratory Effort / Characteristics Respiratory Depth Respiratory Pattern Blood Pressure 153/74 H 153/74 H Blood Pressure [Right Arm] Blood Pressure Mean 100 105 Blood Pressure Mean [Right Arm] Blood Pressure Position [Right Arm] Pulse Oximetry 97 98 Oxygen Delivery Method Sepsis Recent Fever Within 48 Hours Sepsis New/Unexplained Change in Mental Status Sepsis Action Taken by Nursing 09/05/24 19:36 09/05/24 19:38 09/05/24 19:38 Temperature Temperature Source Pulse Rate 73 Pulse Rate [Apical] Pulse Rate from SpO2 Sensor 73 Pulse Rhythm Pulse Rhythm [Apical] Pulse Strength [Apical] Respiratory Rate 13 Respiratory Effort / Characteristics Respiratory Depth Respiratory Pattern Blood Pressure 164/102 H 164/102 H Blood Pressure [Right Arm] Blood Pressure Mean 108 108 Blood Pressure Mean [Right Arm] Blood Pressure Position [Right Arm] Pulse Oximetry 93 Oxygen Delivery Method Sepsis Recent Fever Within 48 Hours Sepsis New/Unexplained Change in Mental Status Sepsis Action Taken by Nursing 09/05/24 19:38 09/05/24 19:42 09/05/24 19:51 Temperature Temperature Source Pulse Rate 77 77 Pulse Rate [Apical] Pulse Rate from SpO2 Sensor 77 76 Pulse Rhythm Pulse Rhythm [Apical] Pulse Strength [Apical] Respiratory Rate 14 14 Respiratory Effort / Characteristics Respiratory Depth Respiratory Pattern Blood Pressure 164/102 H Blood Pressure [Right Arm] Blood Pressure Mean 108 Blood Pressure Mean [Right Arm] Blood Pressure Position [Right Arm] Pulse Oximetry 94 95 Oxygen Delivery Method Sepsis Recent Fever Within 48 Hours Sepsis New/Unexplained Change in Mental Status Sepsis Action Taken by Nursing 09/05/24 20:03 09/05/24 20:15 09/05/24 20:21 Temperature Temperature Source Pulse Rate 70 74 75 Pulse Rate [Apical] Pulse Rate from SpO2 Sensor 67 74 74 Pulse Rhythm Pulse Rhythm [Apical] Pulse Strength [Apical] Respiratory Rate 20 22 17 Respiratory Effort / Characteristics Respiratory Depth Respiratory Pattern Blood Pressure Blood Pressure [Right Arm] Blood Pressure Mean Blood Pressure Mean [Right Arm] Blood Pressure Position [Right Arm] Pulse Oximetry 95 95 96 Oxygen Delivery Method Sepsis Recent Fever Within 48 Hours Sepsis New/Unexplained Change in Mental Status Sepsis Action Taken by Nursing 09/05/24 20:42 09/05/24 20:45 09/05/24 21:04 Temperature Temperature Source Pulse Rate 83 86 Pulse Rate [Apical] Pulse Rate from SpO2 Sensor 83 85 Pulse Rhythm Pulse Rhythm [Apical] Pulse Strength [Apical] Respiratory Rate 23 16 Respiratory Effort / Characteristics Respiratory Depth Respiratory Pattern Blood Pressure 127/70 Blood Pressure [Right Arm] Blood Pressure Mean 84 Blood Pressure Mean [Right Arm] Blood Pressure Position [Right Arm] Pulse Oximetry 97 97 Oxygen Delivery Method Sepsis Recent Fever Within 48 Hours Sepsis New/Unexplained Change in Mental Status Sepsis Action Taken by Nursing 09/05/24 21:04 09/05/24 21:04 09/05/24 21:06 Temperature Temperature Source Pulse Rate 86 Pulse Rate [Apical] Pulse Rate from SpO2 Sensor 86 Pulse Rhythm Pulse Rhythm [Apical] Pulse Strength [Apical] Respiratory Rate 25 H Respiratory Effort / Characteristics Respiratory Depth Respiratory Pattern Blood Pressure 127/70 127/70 Blood Pressure [Right Arm] Blood Pressure Mean 84 84 Blood Pressure Mean [Right Arm] Blood Pressure Position [Right Arm] Pulse Oximetry 98 Oxygen Delivery Method Sepsis Recent Fever Within 48 Hours Sepsis New/Unexplained Change in Mental Status Sepsis Action Taken by Nursing 09/05/24 21:12 09/05/24 21:24 09/05/24 21:30 Temperature Temperature Source Pulse Rate 87 84 Pulse Rate [Apical] Pulse Rate from SpO2 Sensor 87 81 Pulse Rhythm Pulse Rhythm [Apical] Pulse Strength [Apical] Respiratory Rate 19 16 Respiratory Effort / Characteristics Respiratory Depth Respiratory Pattern Blood Pressure 97/73 L Blood Pressure [Right Arm] Blood Pressure Mean 79 Blood Pressure Mean [Right Arm] Blood Pressure Position [Right Arm] Pulse Oximetry 97 95 Oxygen Delivery Method Sepsis Recent Fever Within 48 Hours Sepsis New/Unexplained Change in Mental Status Sepsis Action Taken by Nursing 09/05/24 21:30 09/05/24 21:30 09/05/24 21:42 Temperature Temperature Source Pulse Rate 83 86 Pulse Rate [Apical] Pulse Rate from SpO2 Sensor 83 85 Pulse Rhythm Pulse Rhythm [Apical] Pulse Strength [Apical] Respiratory Rate 15 17 Respiratory Effort / Characteristics Respiratory Depth Respiratory Pattern Blood Pressure 97/73 L Blood Pressure [Right Arm] Blood Pressure Mean 79 Blood Pressure Mean [Right Arm] Blood Pressure Position [Right Arm] Pulse Oximetry 95 98 Oxygen Delivery Method Sepsis Recent Fever Within 48 Hours Sepsis New/Unexplained Change in Mental Status Sepsis Action Taken by Nursing 09/05/24 21:51 09/05/24 22:00 09/05/24 22:00 Temperature Temperature Source Pulse Rate 81 Pulse Rate [Apical] Pulse Rate from SpO2 Sensor 81 Pulse Rhythm Pulse Rhythm [Apical] Pulse Strength [Apical] Respiratory Rate 15 Respiratory Effort / Characteristics Respiratory Depth Respiratory Pattern Blood Pressure 117/72 117/72 Blood Pressure [Right Arm] Blood Pressure Mean 93 93 Blood Pressure Mean [Right Arm] Blood Pressure Position [Right Arm] Pulse Oximetry 98 Oxygen Delivery Method Sepsis Recent Fever Within 48 Hours Sepsis New/Unexplained Change in Mental Status Sepsis Action Taken by Nursing 09/05/24 22:00 Temperature Temperature Source Pulse Rate 82 Pulse Rate [Apical] Pulse Rate from SpO2 Sensor 82 Pulse Rhythm Pulse Rhythm [Apical] Pulse Strength [Apical] Respiratory Rate 18 Respiratory Effort / Characteristics Respiratory Depth Respiratory Pattern Blood Pressure Blood Pressure [Right Arm] Blood Pressure Mean Blood Pressure Mean [Right Arm] Blood Pressure Position [Right Arm] Pulse Oximetry 99 Oxygen Delivery Method Sepsis Recent Fever Within 48 Hours Sepsis New/Unexplained Change in Mental Status Sepsis Action Taken by Nursing Laboratory Data 09/05/24 17:07 09/05/24 17:07 Lab Results 09/05/24 09/05/24 09/05/24 Range/Units 17:07 17:21 21:04 WBC 9.10 (4.8-10.8) K/ul RBC 4.30 (4.20-5.40) M/uL Hgb 12.1 (12.0-16.0) g/dl Hct 36.4 L (37.0-47.0) % MCV 84.7 (80.0-100.0) fL MCH 28.1 (25.0-34.0) pg MCHC 33.2 (32.0-36.0) g/dL RDW Std Deviation 42.8 (36.4-46.3) fL RDW Coeff of Ladi 13.9 (11.5-14.5) % Plt Count 235 (130-400) K/uL MPV 9.0 L (9.4-12.4) fL Immature Gran % (Auto) 0.4 % Neut % (Auto) 66.3 % Lymph % (Auto) 23.8 % [place] % (Auto) 7.9 % Eos % (Auto) 0.5 % Baso % (Auto) 1.1 % Neut # (Auto) 6.02 (1.40-6.50) K/uL Lymph # (Auto) 2.17 (1.20-3.40) K/uL [place] # (Auto) 0.72 H (0.11-0.59) K/uL Eos # (Auto) 0.05 (0.00-0.50) K/uL Baso # (Auto) 0.10 (0.00-0.20) K/uL Immature Gran # (Auto) 0.04 (0.01-0.20) K/uL PT 11.4 (9.0-12.0) Seconds INR 1.1 (0.9-1.1) Sodium 139 (136-145) mmol/L Potassium 3.1 L (3.5-5.1) mmol/L Chloride 102 (98-107) mmol/L Carbon Dioxide 23 (21-32) mmol/L Anion Gap 14 H (3-11) BUN 31 H (6-23) mg/dl Creatinine 1.25 H (0.6-1.2) mg/dl Est Cr Clr Drug Dosing 39.6 ml/min eGFR 44.95 BUN/Creatinine Ratio 24.8 H (10-20) Glucose 136 H (70-99(Fasting)) mg/dl Calcium 9.6 (8.6-10.3) mg/dl Total Bilirubin 0.8 (0.2-1.0) mg/dl AST 20 (13-39) U/L ALT 14 (7-52) U/L Alkaline Phosphatase 77 (34-104) U/L Troponin I High Sens 17.8 H (0-14) pg/ml Total Protein 7.6 (6.0-8.3) gm/dl Albumin 4.5 (3.4-5.0) gm/dl Globulin 3.1 (2.5-4.0) gm/dl Albumin/Globulin Ratio 1.5 (0.9-2) Lipase 32 (11-82) U/L Urine Color Yellow Urine Appearance Clear (Clear) Urine pH 6.0 (4.5-7.5) Ur Specific [place] > 1.045 H (1.000-1.030) Urine Protein 1+ H (Negative) Urine Glucose (UA) Negative (Negative) Urine Ketones Trace H (Negative) Urine Blood Negative (Negative) Urine Nitrite Negative (Negative) Urine Bilirubin Negative (Negative) Urine Urobilinogen Negative (Negative) Ur Leukocyte Esterase Negative (Negative) Urine WBC (Auto) 0-5 (0-5) /hpf Urine RBC (Auto) 3-5 H (0-2) /hpf U Hyaline Cast (Auto) 0-2 (0-2) /lpf U Epithel Cells (Auto) 3-5 H (0-2) /hpf Urine Bacteria (Auto) 1+ H (None Seen) Urine Comment Blood Type A Positive Antibody Screen NEGATIVE Administered Medications Discontinued Medications Pantoprazole Sodium 80 mg/ (Dextrose) 120 mls @ 480 mls/hr IV ONE STA Stop: 09/05/24 17:18 Last Admin: 09/05/24 18:16 Dose: 480 mls/hr Documented By: DANETTE Ioversol (Optiray 320 100ml) 92 ml IV ONCE ONE Stop: 09/05/24 18:04 Last Admin: 09/05/24 18:03 Dose: 92 ml Documented By: ROSE MARY Ondansetron HCl (Ondansetron Inj 2 Mg/Ml 2 Ml Vial) 4 mg IV NOW STA Stop: 09/05/24 17:05 Last Admin: 09/05/24 17:23 Dose: 4 mg Documented By: DANETTE Imaging Data Radiologist's Impression: Abdomen/Pelvis CT 09/05/24 17:04 EXAMINATION: CT of the abdomen and pelvis performed after the administration of IV contrast TECHNIQUE: Helical CT images from the lung bases through the symphysis pubis were obtained with contrast. Coronal and sagittal reformatted images were generated at a workstation for further assessment. Dose reduction techniques were achieved by using automatic exposure control and/or adjustment of mA and/or kV according to patient size and/or use of iterative reconstruction technique. COMPARISON: July 28, 2024 HISTORY: Abdominal pain FINDINGS: Lower chest: No consolidation. No pleural effusion or pneumothorax. Mechanical aortic valve replacement. Liver: No suspicious liver lesions. Portal veins appear patent. Gallbladder: No gallstones. No evidence of acute cholecystitis. Spleen: Normal size. Pancreas: No suspicious pancreatic lesions. The pancreatic duct is not dilated. Adrenal glands: No adrenal nodules. Kidneys: No hydronephrosis or obstructing renal stones. Scattered small renal cysts. Bladder / Pelvic organs: Unremarkable. Bowel: No bowel obstruction. No abnormal bowel wall thickening. The appendix is not definitely seen. The cecum again is seen to be positioned in the left upper quadrant. No findings to suggest acute GI bleed on this single portal venous phase study. Lymph nodes: No retroperitoneal, mesenteric, or pelvic lymphadenopathy. Peritoneum / Retroperitoneum: No free fluid or air within the abdomen. Vessels: No infrarenal aortic aneurysm. Moderate aortoiliac calcification. Bones and soft tissues: No suspicious lesion in the bones. IMPRESSION: No acute findings in the abdomen or pelvis. Placement of the cecum in the left upper quadrant, suggesting a mobile cecum. Electronically signed by Julio Barfield 09-05-2024 6:37 PM Discharge Plan Visit Data Chief Complaint: Bleeding Stated Complaint: BLOODY STOOL,URINE,VOMITING ED Provider: Martha Messina Discharge Problem: Generalized weakness, CLARENCE (acute kidney injury), Hypokalemia, Elevated troponin, GI bleed Condition: Fair Forms Stand Alone Forms: [facility] Prescriptions Prescriptions: No Action amlodipine 10 mg tablet 10 mg PO QPM famotidine 20 mg tablet 20 mg PO QAM ropinirole 4 mg tablet 4 mg PO HS Eliquis 5 mg Tablet 5 mg PO BID Hold Instructions: Provider's Order Hold anticoagulation until cleared by PCP. furosemide 40 mg tablet 40 mg PO QAM Hold Instructions: Provider's Order until cleared by PCP rosuvastatin 40 mg tablet 40 mg PO HS metoprolol succinate 50 mg tablet extended release 24 hr 50 mg PO QPM gabapentin 100 mg capsule 200 mg PO TID esomeprazole magnesium 40 mg capsule,delayed release(DR/EC) 40 mg PO QAM hydroxyzine HCl 10 mg tablet 10 mg PO BID PRN (Reason: Anxiety) Referrals Referrals: Cierra Lincoln MD [Primary Care Provider] -
[2024-09-05 17:19] LABS: Hematocrit (blood only) 36.4 % (37.0-47.0); Hemoglobin 12.1 g/dl (12.0-16.0); Immature Granulocytes # (auto) 0.04 K/uL (0.01-0.20); Immature Granulocytes % (auto) 0.4 %; Mean Corpuscular Hemoglobin 28.1 pg (25.0-34.0); Mean Corpuscular Volume 84.7 fL (80.0-100.0); Platelet Count 235 K/uL (130-400); RDW Standard Deviation 42.8 fL (36.4-46.3); Red Blood Count 4.30 M/uL (4.20-5.40); White Blood Count 9.10 K/ul (4.8-10.8)
[2024-09-05] MEDS: ONDANSETRON INJ 2 MG/ML 2 ML VIAL IV STA (17:23)
[2024-09-05 17:40] LABS: Alanine Aminotransferase 14.0 U/L (7-52); Albumin Globulin Ratio 1.5 (0.9-2); Alkaline Phosphatase 77.0 U/L (34-104); Anion Gap 14.0 (3-11); Bilirubin,Total 0.8 mg/dl (0.2-1.0); Blood Urea Nitrogen 31.0 mg/dl (6-23); Calcium 9.6 mg/dl (8.6-10.3); Carbon Dioxide 23.0 mmol/L (21-32); Chloride 102.0 mmol/L (98-107); Creatinine Clr Calc Pharmacy 39.6 ml/min; Globulin 3.1 gm/dl (2.5-4.0); Glucose 136.0 mg/dl (70-99(Fasting)); Lipase 32.0 U/L (11-82); Potassium 3.1 mmol/L (3.5-5.1); Sodium 139.0 mmol/L (136-145); Total Protein 7.6 gm/dl (6.0-8.3)
[2024-09-05 17:50] LABS: INR 1.1 (0.9-1.1); Prothrombin Time 11.4 Seconds (9.0-12.0)
[2024-09-05] MEDS: OPTIRAY 320 100ml IV ONE (18:03)
--- NOTE | 2024-09-05 18:37 | CT Scan Report ---
EXAMINATION: CT of the abdomen and pelvis performed after the administration of IV contrast TECHNIQUE: Helical CT images from the lung bases through the symphysis pubis were obtained with contrast. Coronal and sagittal reformatted images were generated at a workstation for further assessment. Dose reduction techniques were achieved by using automatic exposure control and/or adjustment of mA and/or kV according to patient size and/or use of iterative reconstruction technique. COMPARISON: July 28, 2024 HISTORY: Abdominal pain FINDINGS: Lower chest: No consolidation. No pleural effusion or pneumothorax. Mechanical aortic valve replacement. Liver: No suspicious liver lesions. Portal veins appear patent. Gallbladder: No gallstones. No evidence of acute cholecystitis. Spleen: Normal size. Pancreas: No suspicious pancreatic lesions. The pancreatic duct is not dilated. Adrenal glands: No adrenal nodules. Kidneys: No hydronephrosis or obstructing renal stones. Scattered small renal cysts. Bladder / Pelvic organs: Unremarkable. Bowel: No bowel obstruction. No abnormal bowel wall thickening. The appendix is not definitely seen. The cecum again is seen to be positioned in the left upper quadrant. No findings to suggest acute GI bleed on this single portal venous phase study. Lymph nodes: No retroperitoneal, mesenteric, or pelvic lymphadenopathy. Peritoneum / Retroperitoneum: No free fluid or air within the abdomen. Vessels: No infrarenal aortic aneurysm. Moderate aortoiliac calcification. Bones and soft tissues: No suspicious lesion in the bones. IMPRESSION: No acute findings in the abdomen or pelvis. Placement of the cecum in the left upper quadrant, suggesting a mobile cecum. Electronically signed by Julio Barfield 09-05-2024 6:37 PM
[2024-09-05 21:23] LABS: Appearance Urine Clear (Clear); Bacteria Urine Automated 1+ (None Seen); Cast Urine Automated 0-2 /lpf (0-2); Glucose Urine UA Negative (Negative); WBC Urine Automated 0-5 /hpf (0-5)
--- NOTE | 2024-09-05 22:00 | History & Physical Report ---
Date of Service September 05, 2024 Assessment & Plan (1) GI bleed: (2) HTN (hypertension): (3) Hyperlipidemia, unspecified: (4) Coronary artery disease: (5) Hx pulmonary embolism: (6) PAF (paroxysmal atrial fibrillation): Plan 73-year-old female presenting with complaint of GI bleed, black stools with occasional bright red blood. Patient was admitted for similar complaints 07/28 - 07/31/2024. She had EGD and colon at that time with no revealing source. She was found to have diverticulosis. Patient could possibly have ongoing diverticular bleed. She is hemodynamically stable. Hemoglobin = 12.1, hematocrit = 36.4 #GI bleedsuspected. Source unclear. Patient is hemodynamically stable, no brisk bleeding, hemoglobin = 12.1, hematocrit = 36.4. BUN is mildly elevated at 31. Patient does appear to be somewhat dry on exam and lab values. Suspect H/H to decrease on repeat after she receives IV fluid hydration. Admit to medical telemetry Maintain peripheral IV access Hemoccult all stools Monitor CBC every 8 hourstransfuse for bleed, symptomatic anemia or hemoglobin less than 7 Continue Protonix drip for now Continue Pepcid 20 mg p.o. daily Consider consultation with GI should patient drop her hemoglobin Check stool PCR #Elevated troponin very mild elevation of troponin at 17.8. Patient has chronic elevation of troponin upon review of prior labs. She denies chest pain Repeat troponin in the morning #AKIsuspect secondary to volume contraction. Patient reports that she has not been eating or drinking well since returning home BUN = 31, creatinine = 1.25. Increased from most recent value of 0.85 on 07/30/2024 Will continue gentle IV fluids with LR at 100 mL/h Repeat chemistry in the morning Avoid nephrotoxic agents Renal dosing were needed #Hypertensionpatient's blood pressure presently well-controlled hold antihypertensivesamlodipine, metoprolol for now Continue to monitor blood pressure #Hyperlipidemia hold Crestor for now #History of pulmonary embolismpatient on anticoagulation with Eliquis Hold Eliquis for now in setting of presumed bleed #Paroxysmal atrial fibrillationpatient presently in sinus rhythm Hold metoprolol and Eliquis for now #Urinary complaintsetiology uncertain. Possibly urinary retention during the days for decreased output with overflow incontinence when she is incontinent of urine? Have ordered postvoid residual volume Bladder scan as needed Check UA and culture History of Present Illness Chief Complaint: rectal bleed Primary Care Provider: Cierra Lincoln MD Brook Alexis is a 73-year-old female with history of atrial fibrillation on Eliquis anticoagulation, coronary artery disease status post two-vessel CABG, hypertension, hyperlipidemia, GERD, prior PE on anticoagulation presenting with complaint of ongoing bloody bowel movements. Patient was admitted to [facility] from July 28 through July 31 with complaints of a GI bleed. She had a colonoscopy performed on July 30, 2024 which revealed multiple diverticuli in the sigmoid colon. EGD with normal esophagus, prior Hank fundoplication with healthy-appearing mucosa. Patient reports that on 09/02 she developed right lower quadrant abdominal pain with some radiation into her back. She gets fairly severe pain then has a bowel movement. She reports that her bowel movements have been black in color, liquid in consistency. She does see occasional bright red blood as well. Bloody bowel movements have been ongoing for the last several days. She reports 5-6 to 6/day. Also with some nausea and vomiting. No rikki blood but she reports the vomitus is darker in color. No bruising or bleeding gums. She has been taking her Eliquis as directed however, did not take it today. patient additionally reports occasional pink coloration to her urine. She states that she will be incontinent of urine for an entire day then will go several days without passing any urine at all. She reports that sometimes she needs to strain to start her urinary stream And has some difficulty urinating in certain positions. She denies rectal pain. No vaginal bulging or prolapse reported. In the ER she is afebrile, hemodynamically stable ER course: Protonix bolus and drip Allergies Allergy/AdvReac Type Severity Reaction Status Date / Time nitroglycerin Allergy Severe pruritis, Verified 09/05/24 19:24 headache, vomiting with patch (see comments) latex Allergy Mild rash Verified 09/05/24 19:24 potassium chloride AdvReac Mild "did not Verified 09/05/24 19:24 tolerate" IV potassium Home Medications Medication Instructions Recorded Confirmed Type amlodipine 10 mg tablet 10 mg PO QPM 12/04/20 09/05/24 History famotidine 20 mg tablet 20 mg PO QAM 08/14/22 09/05/24 History ropinirole 4 mg tablet 4 mg PO HS 08/14/22 09/05/24 History esomeprazole magnesium 40 mg 40 mg PO QAM 08/10/23 09/05/24 History capsule,delayed release hydroxyzine HCl 10 mg tablet 10 mg PO BID PRN Anxiety 08/10/23 09/05/24 History apixaban 5 mg tablet (Eliquis) 5 mg PO BID 06/15/24 09/05/24 History furosemide 40 mg tablet 40 mg PO QAM 06/15/24 09/05/24 History rosuvastatin 40 mg tablet 40 mg PO HS 06/15/24 09/05/24 History gabapentin 100 mg capsule 200 mg PO TID 09/05/24 09/05/24 History metoprolol succinate 50 mg 50 mg PO QPM 09/05/24 09/05/24 History tablet,extended release 24 hr Past Med/Surg History Problem List GI bleed (Acute) Elevated troponin (Acute) Hypokalemia (Acute) CLARENCE (acute kidney injury) (Acute) Generalized weakness (Acute) Elevated INR (Acute) CLARENCE (acute kidney injury) (Acute) Bloody stools (Acute) Weakness (Acute) Coronary artery disease Gait apraxia Obesity Restless legs syndrome (Chronic) Panic disorder (Chronic) Major depressive disorder, single episode, unspecified (Chronic) Lumbago (Chronic) Hyperlipidemia, unspecified (Chronic) Chronic pain of left knee (Chronic) Anxiety disorder, unspecified (Chronic) Essential tremor Cerebrovascular disease Peripheral neuropathy Endometrial thickening on ultrasound Perioral tremor Urinary incontinence Osteoarthritis of right foot Hallux valgus (acquired), right foot Hammertoe of second toe of right foot Idiopathic scoliosis (Chronic) Status post Hank fundoplication Depression GERD (gastroesophageal reflux disease) has chronic cough HTN (hypertension) Medical History Chest pain Fluid overload Hypercalcemia Hypoxia Hypercalcemia Hypomagnesemia Hypokalemia due to excessive gastrointestinal loss of potassium Gastric volvulus History of colon polyps Hx pulmonary embolism 09/2019- on Eliquis Anxiety and depression History of COVID-19 11/2020; cough, congestion, loss of taste, fatigue; c/o ongoing fatigue Atrial fibrillation single episode 09/2019 converted with IV amiodarone in setting of PNA/PE Follows with [facility] Cardiology Osteoporosis PAF (paroxysmal atrial fibrillation) Hyponatremia Tremor benign essential tremor (left hand)- controlled History of blood transfusion after each childbirth--last 1984 Restless leg Balance problem under surveillance by PCP, no definitive diagnosis History of endometriosis Panic attacks Premature ventricular contractions (PVCs) (VPCs) Hyperlipidemia Reactive airway disease LAMBERTO (iron deficiency anemia) Surgical History H/O foot surgery Right foot first tarsometatarsal joint arthrodesis with application of Lapiplasty plates History of anesthesia reaction difficulty waking History of esophagogastroduodenoscopy (EGD) Hx of colonoscopy last 05/2021 @ [facility] History of surgery ENDOMETRIOMA REMOVAL + PARTIAL UNILATERAL OOPHORECTOMY + APPENDECTOMY History of hernia repair open ventral hernia repair: 07/20/18: Grade view 1, MAC#3, ETT 7.0 at [facility] History of bladder suspension procedure History of tooth extraction History of surgical removal of ganglion cyst LEFT WRIST S/p bilateral blepharoplasty History of cardiac cath X2; 15+ years ago- no stents Family History Grandmother (Paternal) Family hx of colon cancer Grandmother (Maternal) Family hx of colon cancer Other No family history of adverse response to anesthesia Social History Smoking Status: Never smoker Second Hand Exposure: No; Do You Dip or Chew Tobacco: No; Hx Alcohol Use: No Hx Substance Use: No Preferred Language: Kenyan Communication Ability: Effective Certified Personal Finance Counselor Required: No Beliefs That Will Affect Care: None Current Living Situation: Spouse 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 Feels Safe at Home: Yes Safety Concerns: Feels Safe At This Time Assistive Devices: Denture - Upper and Denture - Lower Review of Systems Review of Systems: All systems reviewed & are unremarkable except as noted in HPI & below Physical Exam Physical Exam: General: patient resting comfortably, NAD, non-toxic in appearance, AA&O x 4 Skin: warm, dry, intact, no rashes or lesions HEENT: NC/AT, PERRL, EOMI, anicteric sclera, conjunctiva without injection, external ear normal to inspection and nontender, nares patent, moist mucus membranes, dentition intact, no oropharyngeal lesions, neck supple, trachea midline, no LAD, no thyromegaly, no JVD Heart: +S1/S2, regular, no m/r/g Lungs: equal air entry bilaterally, no rales/rhonchi/wheezes Abd: +BS, soft, NT/ND, no masses/organomegaly/ascites Ext: warm, 2+ pulses in UE/LE bilaterally, no clubbing/cyanosis or edema Neuro: nonfocal, patient AA&O x 4, speech intact, no facial droop, moving all extremities on command with equal strength 5/5 Rectal exam external hemorrhoids present with no bleeding. No stool in the vault. Weakly heme positive Results & Data Results & Data Vital Signs (Past 12 Hours) Vital Signs Temp Pulse Pulse Resp BP BP Pulse Ox 09/05/24 21:04 127/70 09/05/24 20:45 86 16 97 09/05/24 20:42 83 23 97 09/05/24 20:21 75 17 96 09/05/24 20:15 74 22 95 09/05/24 20:03 70 20 95 09/05/24 19:51 77 14 95 09/05/24 19:42 77 14 94 09/05/24 19:38 164/102 H 09/05/24 19:38 164/102 H 09/05/24 19:38 164/102 H 09/05/24 19:36 73 13 93 09/05/24 19:24 76 12 98 09/05/24 19:16 153/74 H 09/05/24 19:00 77 15 153/74 H 97 09/05/24 18:53 75 09/05/24 18:51 76 17 97 09/05/24 17:12 79 16 96 09/05/24 17:12 78 18 147/77 H 97 09/05/24 17:12 96 09/05/24 16:54 36.7 C 90 20 125/86 95 O2 Del Method 09/05/24 21:04 09/05/24 20:45 09/05/24 20:42 09/05/24 20:21 09/05/24 20:15 09/05/24 20:03 09/05/24 19:51 09/05/24 19:42 09/05/24 19:38 09/05/24 19:38 09/05/24 19:38 09/05/24 19:36 09/05/24 19:24 09/05/24 19:16 09/05/24 19:00 09/05/24 18:53 09/05/24 18:51 09/05/24 17:12 Room Air 09/05/24 17:12 Room Air 09/05/24 17:12 Room Air 09/05/24 16:54 Room Air Laboratory Results Laboratory Results WBC 9.10 K/ul (4.8-10.8) 09/05/24 17:07 RBC 4.30 M/uL (4.20-5.40) 09/05/24 17:07 Hgb 12.1 g/dl (12.0-16.0) 09/05/24 17:07 Hct 36.4 % (37.0-47.0) L 09/05/24 17:07 MCV 84.7 fL (80.0-100.0) 09/05/24 17:07 MCH 28.1 pg (25.0-34.0) 09/05/24 17:07 MCHC 33.2 g/dL (32.0-36.0) 09/05/24 17:07 RDW Std Deviation 42.8 fL (36.4-46.3) 09/05/24 17:07 RDW Coeff of Ladi 13.9 % (11.5-14.5) 09/05/24 17:07 Plt Count 235 K/uL (130-400) 09/05/24 17:07 MPV 9.0 fL (9.4-12.4) L 09/05/24 17:07 Immature Gran % (Auto) 0.4 % 09/05/24 17:07 Neut % (Auto) 66.3 % 09/05/24 17:07 Lymph % (Auto) 23.8 % 09/05/24 17:07 Quay % (Auto) 7.9 % 09/05/24 17:07 Eos % (Auto) 0.5 % 09/05/24 17:07 Baso % (Auto) 1.1 % 09/05/24 17:07 Neut # (Auto) 6.02 K/uL (1.40-6.50) 09/05/24 17:07 Lymph # (Auto) 2.17 K/uL (1.20-3.40) 09/05/24 17:07 Quay # (Auto) 0.72 K/uL (0.11-0.59) H 09/05/24 17:07 Eos # (Auto) 0.05 K/uL (0.00-0.50) 09/05/24 17:07 Baso # (Auto) 0.10 K/uL (0.00-0.20) 09/05/24 17:07 Immature Gran # (Auto) 0.04 K/uL (0.01-0.20) 09/05/24 17:07 PT 11.4 Seconds (9.0-12.0) 09/05/24 17:07 INR 1.1 (0.9-1.1) 09/05/24 17:07 Sodium 139 mmol/L (136-145) 09/05/24 17:07 Potassium 3.1 mmol/L (3.5-5.1) L 09/05/24 17:07 Chloride 102 mmol/L (98-107) 09/05/24 17:07 Carbon Dioxide 23 mmol/L (21-32) 09/05/24 17:07 Anion Gap 14 (3-11) H 09/05/24 17:07 BUN 31 mg/dl (6-23) H 09/05/24 17:07 Creatinine 1.25 mg/dl (0.6-1.2) H 09/05/24 17:07 Est Cr Clr Drug Dosing 39.6 ml/min 09/05/24 17:07 eGFR 44.95 09/05/24 17:07 BUN/Creatinine Ratio 24.8 (10-20) H 09/05/24 17:07 Glucose 136 mg/dl (70-99(Fasting)) H 09/05/24 17:07 Calcium 9.6 mg/dl (8.6-10.3) 09/05/24 17:07 Total Bilirubin 0.8 mg/dl (0.2-1.0) 09/05/24 17:07 AST 20 U/L (13-39) 09/05/24 17:07 ALT 14 U/L (7-52) 09/05/24 17:07 Alkaline Phosphatase 77 U/L (34-104) 09/05/24 17:07 Troponin I High Sens 17.8 pg/ml (0-14) H 09/05/24 17:07 Total Protein 7.6 gm/dl (6.0-8.3) 09/05/24 17:07 Albumin 4.5 gm/dl (3.4-5.0) 09/05/24 17:07 Globulin 3.1 gm/dl (2.5-4.0) 09/05/24 17:07 Albumin/Globulin Ratio 1.5 (0.9-2) 09/05/24 17:07 Lipase 32 U/L (11-82) 09/05/24 17:07 Urine Color Yellow 09/05/24 21:04 Urine Appearance Clear (Clear) 09/05/24 21:04 Urine pH 6.0 (4.5-7.5) 09/05/24 21:04 Ur Specific [place] > 1.045 (1.000-1.030) H 09/05/24 21:04 Urine Protein 1+ (Negative) H 09/05/24 21:04 Urine Glucose (UA) Negative (Negative) 09/05/24 21:04 Urine Ketones Trace (Negative) H 09/05/24 21:04 Urine Blood Negative (Negative) 09/05/24 21:04 Urine Nitrite Negative (Negative) 09/05/24 21:04 Urine Bilirubin Negative (Negative) 09/05/24 21:04 Urine Urobilinogen Negative (Negative) 09/05/24 21:04 Ur Leukocyte Esterase Negative (Negative) 09/05/24 21:04 Urine WBC (Auto) 0-5 /hpf (0-5) 09/05/24 21:04 Urine RBC (Auto) 3-5 /hpf (0-2) H 09/05/24 21:04 U Hyaline Cast (Auto) 0-2 /lpf (0-2) 09/05/24 21:04 U Epithel Cells (Auto) 3-5 /hpf (0-2) H 09/05/24 21:04 Urine Bacteria (Auto) 1+ (None Seen) H 09/05/24 21:04 Urine Comment 09/05/24 21:04 Blood Type A Positive 09/05/24 17:21 Antibody Screen NEGATIVE 09/05/24 17:21 Impressions Abdomen/Pelvis CT 09/05/24 17:04 EXAMINATION: CT of the abdomen and pelvis performed after the administration of IV contrast TECHNIQUE: Helical CT images from the lung bases through the symphysis pubis were obtained with contrast. Coronal and sagittal reformatted images were generated at a workstation for further assessment. Dose reduction techniques were achieved by using automatic exposure control and/or adjustment of mA and/or kV according to patient size and/or use of iterative reconstruction technique. COMPARISON: July 28, 2024 HISTORY: Abdominal pain FINDINGS: Lower chest: No consolidation. No pleural effusion or pneumothorax. Mechanical aortic valve replacement. Liver: No suspicious liver lesions. Portal veins appear patent. Gallbladder: No gallstones. No evidence of acute cholecystitis. Spleen: Normal size. Pancreas: No suspicious pancreatic lesions. The pancreatic duct is not dilated. Adrenal glands: No adrenal nodules. Kidneys: No hydronephrosis or obstructing renal stones. Scattered small renal cysts. Bladder / Pelvic organs: Unremarkable. Bowel: No bowel obstruction. No abnormal bowel wall thickening. The appendix is not definitely seen. The cecum again is seen to be positioned in the left upper quadrant. No findings to suggest acute GI bleed on this single portal venous phase study. Lymph nodes: No retroperitoneal, mesenteric, or pelvic lymphadenopathy. Peritoneum / Retroperitoneum: No free fluid or air within the abdomen. Vessels: No infrarenal aortic aneurysm. Moderate aortoiliac calcification. Bones and soft tissues: No suspicious lesion in the bones. IMPRESSION: No acute findings in the abdomen or pelvis. Placement of the cecum in the left upper quadrant, suggesting a mobile cecum. Electronically signed by Julio Barfield 09-05-2024 6:37 PM PG Care Time/CCT Total # of Minutes Spent Total Time Spent with Patient: Total time spent is greater than 50% in coordination of care (as documented) at patient's floor/unit and/or counseling patient: Coding Level of Care Code 02810 INT INP/OBS CARE 3/75MIN Diagnoses GI bleed K92.2 HTN (hypertension) I10 Hyperlipidemia, unspecified E78.5 Coronary artery disease I25.10 Hx pulmonary embolism Z86.711 PAF (paroxysmal atrial fibrillation) I48.0
[2024-09-06] MEDS ORDERED: ONDANSETRON INJ 2 MG/ML 2 ML VIAL IV PRN (00:42)
[2024-09-06] MEDS ORDERED: ACETAMINOPHEN 325 MG TAB PO PRN (00:42)
[2024-09-06] MEDS ORDERED: PANTOPRAZOLE BOLUS/DRIP IV STA (00:42)
[2024-09-06] MEDS: MELATONIN 3 MG TAB PO PRN (01:14)
[2024-09-06] MEDS: POTASSIUM CHLORIDE CRTAB 20 MEQ TABCR PO STA ×2 (01:14→09:14)
[2024-09-06] MEDS: LACTATED RINGER'S 1,000 ML IV SCH (02:30)
[2024-09-06] MEDS: PANTOprazole 40 MG in DEXTROSE 5% MINI-B 100 ML IV SCH (02:52)
[2024-09-06] MEDS: METOPROLOL TARTRATE 1 MG/ML VIAL IV STA (07:35)
[2024-09-06 08:06] LABS: Hematocrit (blood only) 32.6 % (37.0-47.0); Hemoglobin 10.8 g/dl (12.0-16.0); Mean Corpuscular Hemoglobin 28.4 pg (25.0-34.0); Mean Corpuscular Volume 85.8 fL (80.0-100.0); Platelet Count 191 K/uL (130-400); RDW Standard Deviation 43.2 fL (36.4-46.3); Red Blood Count 3.80 M/uL (4.20-5.40); White Blood Count 7.91 K/ul (4.8-10.8)
[2024-09-06 08:23] LABS: Anion Gap 8.0 (3-11); Blood Urea Nitrogen 24.0 mg/dl (6-23); Calcium 8.8 mg/dl (8.6-10.3); Carbon Dioxide 26.0 mmol/L (21-32); Chloride 103.0 mmol/L (98-107); Creatinine Clr Calc Pharmacy 49.6 ml/min; Glucose 112.0 mg/dl (70-99(Fasting)); Potassium 3.1 mmol/L (3.5-5.1); Sodium 137.0 mmol/L (136-145)
[2024-09-06] MEDS: GABAPENTIN 100 MG CAP PO SCH (09:14)
[2024-09-06] MEDS: FAMOTIDINE 20 MG TAB PO SCH (09:14)
[2024-09-06] MEDS: METOPROLOL TARTRATE 25 MG TAB PO SCH (10:48)
[2024-09-06] MEDS: PANTOprazole 40 MG/10 ML SYR IV SCH (10:48)
[2024-09-06] MEDS ORDERED: METOPROLOL TARTRATE 1 MG/ML VIAL IV SCH (12:00)
[2024-09-06 12:55] LABS: Hematocrit (blood only) 34.3 % (37.0-47.0); Hemoglobin 11.3 g/dl (12.0-16.0); Mean Corpuscular Hemoglobin 28.3 pg (25.0-34.0); Mean Corpuscular Volume 85.8 fL (80.0-100.0); Platelet Count 207 K/uL (130-400); RDW Standard Deviation 42.7 fL (36.4-46.3); Red Blood Count 4.00 M/uL (4.20-5.40); White Blood Count 7.29 K/ul (4.8-10.8)
--- NOTE | 2024-09-06 12:55 | Hospitalist Progress Note ---
Date of Service September 06, 2024 Assessment & Plan (1) GI bleed: (2) HTN (hypertension): (3) Hyperlipidemia, unspecified: (4) Coronary artery disease: (5) Hx pulmonary embolism: (6) PAF (paroxysmal atrial fibrillation): Plan 73-year-old female presenting with complaint of GI bleed, black stools with occasional bright red blood. Patient was admitted for similar complaints 07/28 - 07/31/2024. She had EGD and colon at that time with no revealing source. She was found to have diverticulosis. Patient could possibly have ongoing diverticular bleed. She is hemodynamically stable. Hemoglobin = 12.1, hematocrit = 36.4 on admission. #GI bleedsuspected. Source unclear. Patient is hemodynamically stable, no brisk bleeding, hemoglobin = 12.1, hematocrit = 36.4. BUN is mildly elevated at 31. Patient does appear to be somewhat dry on exam and lab values. Suspect H/H to decrease on repeat after she receives IV fluid hydration. Admitted to medical telemetry Maintain peripheral IV access Hemoccult all stools Monitor CBC every 8 hourstransfuse for symptomatic anemia or hemoglobin less than 7 D/C PPI drip and change to Protonix 40mg IV BID Continue Pepcid 20 mg p.o. daily Consult GI, appreciate recommendations - NPO currently, but can have meds - HGB 10.8 on AM labs, but suspect dilution as opposed to active bleeding #Elevated troponin very mild elevation of troponin at 17.8. Patient has chronic elevation of troponin upon review of prior labs. She denies chest pain Repeat troponin this AM 17.0, essentially unchanged, ACS ruled out #AKIsuspect secondary to volume contraction. Patient reports that she has not been eating or drinking well since returning home BUN = 31, creatinine = 1.25. Increased from most recent value of 0.85 on 07/30/2024 Will continue gentle IV fluids with LR at 100 mL/h Repeat chemistry this AM noted improvement in her creatinine to 0.98 Avoid nephrotoxic agents Renal dosing were needed - CLARENCE has resolved #Hypertensionpatient's blood pressure presently well-controlled hold antihypertensivesamlodipine Continue to monitor blood pressure #Hyperlipidemia hold Crestor for now #History of pulmonary embolismpatient on anticoagulation with Eliquis Hold Eliquis for now in setting of presumed bleed #Paroxysmal atrial fibrillationpatient presently flipped into afib with variable rate control Hold Eliquis - Given a dose of IV Metoprolol 5mg x1 and then given a dose of Lopressor 25mg PO x1 - Resume Metoprolol Succinate 50mg qHS tonight #Urinary complaintsetiology uncertain. Possibly urinary retention during the days for decreased output with overflow incontinence when she is incontinent of urine? Have ordered postvoid residual volume Bladder scan as needed UA not grossly infected, urine cultures pending, afebrile Labs ordered for tomorrow AM to trend H&H and to monitor renal fxn and electrolytes. Await input from GI. Anticipate possibly home tomorrow if no plans for intervention or further evidence of GI bleeding as well as H&H remains stable. Advance diet this evening if no GI intervention. Admission and Anticipated Discharge Date Admission Date: September 05, 2024 Supervising Physician Co-Signing Physician Notes The patient was not seen by me. The chart was reviewed. Case discussed with BRYANT Lebron. Agree with assessment and plan Subjective Brook is a 73 yo F admitted for possible GI bleed, reported coffee-grounds appearing emesis 2 days ago, bloody diarrhea and some nausea. Denies abd pain or fever. Nursing reported in afib this AM with variable rate. Was given a dose of IV Metoprolol 5mg x1 with improvement in HR. Her PO metoprolol succ was held d/t her NPO status. Review of Systems 2 Review of Systems: All systems reviewed and are unremarkable except as noted in HPI and below. Denies fever, chills, fatigue, headache, nasal congestion, sore throat, cough, chest pain, shortness of breath, palpitations, orthopnea, PND, abdominal pain, constipation, dysuria, hematuria, frequency, back pain, joint pain or swelling, easy bruising or bleeding, skin lesions or rashes. Physical Exam 2 Physical Exam: GENERAL: 73 yo well nourished elderly WF. Cooperative. No distress. LUNGS: Clear to auscultation bilaterally. No W/R/R. CARDIOVASCULAR: Irregular rate and rhythm ABDOMEN: Soft, non-tender and non-distended. BS normoactive x 4 quad. EXTREMITIES: No edema. Non-tender. Peripheral pulses +2/4. SKIN: Warm, dry, intact. No rashes or lesions. Results & Data Results & Data Vital Signs (Past 12 Hours) Vital Signs Temp Pulse Pulse Resp BP BP Pulse Ox 09/06/24 11:24 36.7 C 108 H 18 105/76 94 09/06/24 08:04 36.8 C 120 H 20 119/76 96 09/06/24 07:50 112 H 129/85 09/06/24 07:35 124 H 119/76 09/06/24 05:59 68 09/06/24 02:34 36.7 C 71 16 116/72 93 09/06/24 00:56 85 09/06/24 00:52 Laboratory Results 09/06/24 07:41 Hgb= 10.8 Hct=32.6 PG Care Time/CCT Total # of Minutes Spent Total Time Spent with Patient: Total time spent is greater than 50% in coordination of care (as documented) at patient's floor/unit and/or counseling patient: 36 minutes Coding Level of Care Code 73061 SUB INP/OBS CARE 2/35MIN Diagnoses GI bleed K92.2 HTN (hypertension) I10 Hyperlipidemia, unspecified E78.5 Coronary artery disease I25.10 Hx pulmonary embolism Z86.711 PAF (paroxysmal atrial fibrillation) I48.0
--- NOTE | 2024-09-06 13:16 | Gastrointestinal Consultation ---
Date of Consultation September 06, 2024 Assessment & Plan (1) GI bleed: -Continue PPI therapy -Needs outpatient VCE for further evaluation Supervising Physician Co-Signing Physician Notes I saw and examined this patient with our nurse practitioner and agree with her assessment and plan. Presents with recurrent episodes of bleeding a mix between melena and bright red blood. Patient endoscopy and colonoscopy are unrevealing. Her hemoglobin is stable. Endoscopy and colonoscopy were unrevealing for significant causes for bleeding. In light of this we need to consider small bowel source for her bleeding. Recommended outpatient capsule study. Our office will set that up. If she remains stable with stable hemoglobin okay to discharge from our standpoint. History of Present Illness Reason for Consultation: "GI bleed" Attending Physician: Bradley Carbajal MD History of Present Illness Patient is a 73 yo female with PMH of afib on Eliquis, CAD s/p CABG, HTN, HLD, GERD, & history of PE who presents again for ongoing intermittent episodes of rectal bleeding. She was recently admitted for the same concerns. She had an EGD & colonoscopy on 07/30/24 without acute bleed source. She was noted to have diverticulosis and evidence of a prior Hank. She was feeling well but then on 09/02 she developed RLQ abdominal pain with radiation into her back. She notes recently having black liquid stools with occasional bright red. These episodes go on for several days then resolve. She takes Eliquis daily. She takes Famotidine 20 mg daily along with Nexium 40 mg daily. She is currently hemodynamically stable. H/H currently 11.3/34.3. She has a very mild elevation of troponin. AST/ALT unremarkable. CT abdomen/pelvis with IV contrast performed in the ED was negative. Allergies Allergy/AdvReac Type Severity Reaction Status Date / Time nitroglycerin Allergy Severe pruritis, Verified 09/05/24 19:24 headache, vomiting with patch (see comments) latex Allergy Mild rash Verified 09/05/24 19:24 potassium chloride AdvReac Mild "did not Verified 09/05/24 19:24 tolerate" IV potassium Home Medications Medication Instructions Recorded Confirmed Type amlodipine 10 mg tablet 10 mg PO QPM 12/04/20 09/05/24 History famotidine 20 mg tablet 20 mg PO QAM 08/14/22 09/05/24 History ropinirole 4 mg tablet 4 mg PO HS 08/14/22 09/05/24 History esomeprazole magnesium 40 mg 40 mg PO QAM 08/10/23 09/05/24 History capsule,delayed release hydroxyzine HCl 10 mg tablet 10 mg PO BID PRN Anxiety 08/10/23 09/05/24 History apixaban 5 mg tablet (Eliquis) 5 mg PO BID 06/15/24 09/05/24 History furosemide 40 mg tablet 40 mg PO QAM 06/15/24 09/05/24 History rosuvastatin 40 mg tablet 40 mg PO HS 06/15/24 09/05/24 History gabapentin 100 mg capsule 200 mg PO TID 09/05/24 09/05/24 History metoprolol succinate 50 mg 50 mg PO QPM 09/05/24 09/05/24 History tablet,extended release 24 hr Patient History Medical History Chest pain Fluid overload Hypercalcemia Hypoxia Hypercalcemia Hypomagnesemia Hypokalemia due to excessive gastrointestinal loss of potassium Gastric volvulus History of colon polyps Hx pulmonary embolism 09/2019- on Eliquis Anxiety and depression History of COVID-19 11/2020; cough, congestion, loss of taste, fatigue; c/o ongoing fatigue Atrial fibrillation single episode 09/2019 converted with IV amiodarone in setting of PNA/PE Follows with [facility] Osteoporosis PAF (paroxysmal atrial fibrillation) Hyponatremia Tremor benign essential tremor (left hand)- controlled History of blood transfusion after each childbirth--last 1984 Restless leg Balance problem under surveillance by PCP, no definitive diagnosis History of endometriosis Panic attacks Premature ventricular contractions (PVCs) (VPCs) Hyperlipidemia Reactive airway disease LAMBERTO (iron deficiency anemia) Surgical History H/O foot surgery Right foot first tarsometatarsal joint arthrodesis with application of Lapiplasty plates History of anesthesia reaction difficulty waking History of esophagogastroduodenoscopy (EGD) Hx of colonoscopy last 05/2021 @ [facility] History of surgery ENDOMETRIOMA REMOVAL + PARTIAL UNILATERAL OOPHORECTOMY + APPENDECTOMY History of hernia repair open ventral hernia repair: 07/20/18: Grade view 1, MAC#3, ETT 7.0 at [facility] History of bladder suspension procedure History of tooth extraction History of surgical removal of ganglion cyst LEFT WRIST S/p bilateral blepharoplasty History of cardiac cath X2; 15+ years ago- no stents Family History Grandmother (Paternal) Family hx of colon cancer Grandmother (Maternal) Family hx of colon cancer Other No family history of adverse response to anesthesia Social History Smoking Status: Never smoker Second Hand Exposure: No; Do You Dip or Chew Tobacco: No; Hx Alcohol Use: No Hx Substance Use: No Preferred Language: Korean Communication Ability: Effective Forensic Computer Examiner Required: No Beliefs That Will Affect Care: None Current Living Situation: Spouse 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 Feels Safe at Home: Yes Safety Concerns: Feels Safe At This Time Assistive Devices: None Review of Systems Constitutional: no fever and no chills Respiratory: no cough and no dyspnea Cardiovascular: no chest pain Gastrointestinal: + blood in stools and + melena; no abdom inal pain (none at present) Physical Exam Constitutional: well developed Respiratory: normal respiratory effort Cardiovascular: Rate/Rhythm: regular rate Gastrointestinal (Abdomen): normal bowel sounds, soft, nontender, no hepatosplenomegaly Results & Data Vital Signs (Past 12 Hours) Vital Signs Temp Pulse Pulse Resp BP BP Pulse Ox 09/06/24 11:24 36.7 C 108 H 18 105/76 94 09/06/24 08:04 36.8 C 120 H 20 119/76 96 09/06/24 07:50 112 H 129/85 09/06/24 07:35 124 H 119/76 09/06/24 05:59 68 09/06/24 02:34 36.7 C 71 16 116/72 93 O2 Del Method 09/06/24 11:24 Room Air 09/06/24 08:04 Room Air 09/06/24 07:50 09/06/24 07:35 09/06/24 05:59 09/06/24 02:34 Room Air Laboratory Results Laboratory Results - last 48 hr 09/05/24 09/05/24 09/05/24 17:07 17:21 21:04 WBC 9.10 RBC 4.30 Hgb 12.1 Hct 36.4 L MCV 84.7 MCH 28.1 MCHC 33.2 RDW Std Deviation 42.8 RDW Coeff of Ladi 13.9 Plt Count 235 MPV 9.0 L Immature Gran % (Auto) 0.4 Neut % (Auto) 66.3 Lymph % (Auto) 23.8 Day % (Auto) 7.9 Eos % (Auto) 0.5 Baso % (Auto) 1.1 Neut # (Auto) 6.02 Lymph # (Auto) 2.17 Day # (Auto) 0.72 H Eos # (Auto) 0.05 Baso # (Auto) 0.10 Immature Gran # (Auto) 0.04 PT 11.4 INR 1.1 Sodium 139 Potassium 3.1 L Chloride 102 Carbon Dioxide 23 Anion Gap 14 H BUN 31 H Creatinine 1.25 H Est Cr Clr Drug Dosing 39.6 eGFR 44.95 BUN/Creatinine Ratio 24.8 H Glucose 136 H Calcium 9.6 Total Bilirubin 0.8 AST 20 ALT 14 Alkaline Phosphatase 77 Troponin I High Sens 17.8 H Total Protein 7.6 Albumin 4.5 Globulin 3.1 Albumin/Globulin Ratio 1.5 Lipase 32 Urine Color Yellow Urine Appearance Clear Urine pH 6.0 Ur Specific [place] > 1.045 H Urine Protein 1+ H Urine Glucose (UA) Negative Urine Ketones Trace H Urine Blood Negative Urine Nitrite Negative Urine Bilirubin Negative Urine Urobilinogen Negative Ur Leukocyte Esterase Negative Urine WBC (Auto) 0-5 Urine RBC (Auto) 3-5 H U Hyaline Cast (Auto) 0-2 U Epithel Cells (Auto) 3-5 H Urine Bacteria (Auto) 1+ H Urine Comment Blood Type A Positive Antibody Screen NEGATIVE 09/06/24 09/06/24 07:41 12:32 WBC 7.91 7.29 RBC 3.80 L 4.00 L Hgb 10.8 L 11.3 L Hct 32.6 L 34.3 L MCV 85.8 85.8 MCH 28.4 28.3 MCHC 33.1 32.9 RDW Std Deviation 43.2 42.7 RDW Coeff of Ladi 13.7 13.7 Plt Count 191 207 MPV 9.2 L 9.3 L Immature Gran % (Auto) Neut % (Auto) Lymph % (Auto) Day % (Auto) Eos % (Auto) Baso % (Auto) Neut # (Auto) Lymph # (Auto) Day # (Auto) Eos # (Auto) Baso # (Auto) Immature Gran # (Auto) PT INR Sodium 137 Potassium 3.1 L Chloride 103 Carbon Dioxide 26 Anion Gap 8 BUN 24 H Creatinine 0.98 Est Cr Clr Drug Dosing 49.6 eGFR 60.19 BUN/Creatinine Ratio 24.5 H Glucose 112 H Calcium 8.8 Total Bilirubin AST ALT Alkaline Phosphatase Troponin I High Sens 17.0 H Total Protein Albumin Globulin Albumin/Globulin Ratio Lipase Urine Color Urine Appearance Urine pH Ur Specific [place] Urine Protein Urine Glucose (UA) Urine Ketones Urine Blood Urine Nitrite Urine Bilirubin Urine Urobilinogen Ur Leukocyte Esterase Urine WBC (Auto) Urine RBC (Auto) U Hyaline Cast (Auto) U Epithel Cells (Auto) Urine Bacteria (Auto) Urine Comment Blood Type Antibody Screen PG Care Time/CCT Total # of Minutes Spent Total Time Spent with Patient: Total time spent is greater than 50% in coordination of care (as documented) at patient's floor/unit and/or counseling patient: Coding Level of Care Code 56437 INT INP/OBS CARE 3/75MIN Diagnoses GI bleed K92.2
--- NOTE | 2024-09-06 17:38 | Electrocardiogram Report ---
Test Reason : Blood Pressure : */* mmHG Vent. Rate : 86 BPM Atrial Rate : 86 BPM P-R Int : 160 ms QRS Dur : 86 ms QT Int : 422 ms P-R-T Axes : 37 8 -7 degrees QTcB Int : 504 ms Sinus rhythm with occasional Premature ventricular complexes Minimal voltage criteria for LVH, may be normal variant Nonspecific ST and T wave abnormality Abnormal ECG When compared with ECG of 28-Jul-2024 17:06, Nonspecific T wave abnormality, worse in Inferior leads QT has lengthened Confirmed by Julio Harper ([id number]) on 09/06/2024 5:37:50 PM Referred By: REFERRED SELF Confirmed By: Julio Harper
--- NOTE | 2024-09-06 18:39 | Electrocardiogram Report ---
Test Reason : Blood Pressure : */* mmHG Vent. Rate : 119 BPM Atrial Rate : 119 BPM P-R Int : * ms QRS Dur : 90 ms QT Int : 326 ms P-R-T Axes : * 36 263 degrees QTcB Int : 458 ms Atrial fibrillation with rapid ventricular response Abnormal ECG When compared with ECG of 05-Sep-2024 17:06, (unconfirmed) Atrial fibrillation has replaced Sinus rhythm Confirmed by Julio Harper ([id number]) on 09/06/2024 6:39:17 PM Referred By: REFERRED SELF Confirmed By: Julio Harper
[2024-09-06 19:51] VITALS: RESP 18
[2024-09-06] MEDS: METOPROLOL SUCC 50MG EXT REL TAB PO SCH (20:30)
[2024-09-06] MEDS: ROSUVASTATIN CALCIUM 20 MG TAB PO SCH (20:30)
[2024-09-06 20:38] LABS: Hematocrit (blood only) 32.7 % (37.0-47.0); Hemoglobin 10.6 g/dl (12.0-16.0); Mean Corpuscular Hemoglobin 28.1 pg (25.0-34.0); Mean Corpuscular Volume 86.7 fL (80.0-100.0); Platelet Count 210 K/uL (130-400); RDW Standard Deviation 43.1 fL (36.4-46.3); Red Blood Count 3.77 M/uL (4.20-5.40); White Blood Count 9.75 K/ul (4.8-10.8)
[2024-09-07] MEDS: SODIUM CHLORIDE 0.9% 500 ML IV ONE (03:47)
[2024-09-07 05:53] LABS: Hematocrit (blood only) 30.3 % (37.0-47.0); Hemoglobin 9.7 g/dl (12.0-16.0); Immature Granulocytes # (auto) 0.02 K/uL (0.01-0.20); Immature Granulocytes % (auto) 0.2 %; Mean Corpuscular Hemoglobin 28.6 pg (25.0-34.0); Mean Corpuscular Volume 89.4 fL (80.0-100.0); Platelet Count 187 K/uL (130-400); RDW Standard Deviation 45.3 fL (36.4-46.3); Red Blood Count 3.39 M/uL (4.20-5.40); White Blood Count 8.53 K/ul (4.8-10.8)
[2024-09-07 06:11] LABS: Anion Gap 6.0 (3-11); Blood Urea Nitrogen 23.0 mg/dl (6-23); Calcium 8.0 mg/dl (8.6-10.3); Carbon Dioxide 25.0 mmol/L (21-32); Chloride 108.0 mmol/L (98-107); Creatinine Clr Calc Pharmacy 45.6 ml/min; Glucose 112.0 mg/dl (70-99(Fasting)); Magnesium 1.7 mg/dl (1.7-2.4); Potassium 3.6 mmol/L (3.5-5.1); Sodium 139.0 mmol/L (136-145)
[2024-09-07 11:33] VITALS: BP 115/75; PULSE 59; TEMP 97.5; O2SAT 97
--- NOTE | 2024-09-07 11:34 | Discharge Summary ---
Date of Service September 07, 2024 Admission HPI Per Admitting Provider Brook Alexis is a 73-year-old female with history of atrial fibrillation on Eliquis anticoagulation, coronary artery disease status post two-vessel CABG, hypertension, hyperlipidemia, GERD, prior PE on anticoagulation presenting with complaint of ongoing bloody bowel movements. Patient was admitted to [facility] from July 28 through July 31 with complaints of a GI bleed. She had a colonoscopy performed on July 30, 2024 which revealed multiple diverticuli in the sigmoid colon. EGD with normal esophagus, prior Hank fundoplication with healthy-appearing mucosa. Patient reports that on 09/02 she developed right lower quadrant abdominal pain with some radiation into her back. She gets fairly severe pain then has a bowel movement. She reports that her bowel movements have been black in color, liquid in consistency. She does see occasional bright red blood as well. Bloody bowel movements have been ongoing for the last several days. She reports 5-6 to 6/day. Also with some nausea and vomiting. No rikki blood but she reports the vomitus is darker in color. No bruising or bleeding gums. She has been taking her Eliquis as directed however, did not take it today. patient additionally reports occasional pink coloration to her urine. She states that she will be incontinent of urine for an entire day then will go several days without passing any urine at all. She reports that sometimes she needs to strain to start her urinary stream And has some difficulty urinating in certain positions. She denies rectal pain. No vaginal bulging or prolapse reported. In the ER she is afebrile, hemodynamically stable ER course: Protonix bolus and drip Specialty Data Hospitalist Discharge diagnosis: GI bleed hypokalemia UTI Discharge assessment: Vital Signs Temp Pulse Pulse Resp BP BP Pulse Ox 09/07/24 08:20 36.5 C 65 18 94/57 L 95 09/07/24 05:48 76 09/07/24 04:57 97/62 L 127/65 09/07/24 03:26 89/45 L 85/52 L 09/07/24 02:45 37.0 C 69 18 87/52 L 93 09/06/24 22:46 09/06/24 22:20 36.8 C 83 18 93/61 L 90 09/06/24 22:01 84 09/06/24 19:34 37.1 C 92 H 18 102/69 92 09/06/24 15:00 36.8 C 110 H 20 107/62 93 09/06/24 13:56 09/06/24 13:00 117 H GENERAL: 73 yo well nourished elderly WF. Cooperative. No distress. LUNGS: Clear to auscultation bilaterally. No W/R/R. CARDIOVASCULAR: Irregular rate and rhythm ABDOMEN: Soft, non-tender and non-distended. BS normoactive x 4 quad. EXTREMITIES: No edema. Non-tender. Peripheral pulses +2/4. SKIN: Warm, dry, intact. No rashes or lesions. Discharge Data Consultations 09/05/24 19:44 ED Decision to Admit Stat 09/06/24 09:09 Consult Gastroenterology Routine Procedures Performed 09/07/24 05:30 09/07/24 05:30 Abdomen/Pelvis CT 09/05/24 17:04 EXAMINATION: CT of the abdomen and pelvis performed after the administration of IV contrast TECHNIQUE: Helical CT images from the lung bases through the symphysis pubis were obtained with contrast. Coronal and sagittal reformatted images were generated at a workstation for further assessment. Dose reduction techniques were achieved by using automatic exposure control and/or adjustment of mA and/or kV according to patient size and/or use of iterative reconstruction technique. COMPARISON: July 28, 2024 HISTORY: Abdominal pain FINDINGS: Lower chest: No consolidation. No pleural effusion or pneumothorax. Mechanical aortic valve replacement. Liver: No suspicious liver lesions. Portal veins appear patent. Gallbladder: No gallstones. No evidence of acute cholecystitis. Spleen: Normal size. Pancreas: No suspicious pancreatic lesions. The pancreatic duct is not dilated. Adrenal glands: No adrenal nodules. Kidneys: No hydronephrosis or obstructing renal stones. Scattered small renal cysts. Bladder / Pelvic organs: Unremarkable. Bowel: No bowel obstruction. No abnormal bowel wall thickening. The appendix is not definitely seen. The cecum again is seen to be positioned in the left upper quadrant. No findings to suggest acute GI bleed on this single portal venous phase study. Lymph nodes: No retroperitoneal, mesenteric, or pelvic lymphadenopathy. Peritoneum / Retroperitoneum: No free fluid or air within the abdomen. Vessels: No infrarenal aortic aneurysm. Moderate aortoiliac calcification. Bones and soft tissues: No suspicious lesion in the bones. IMPRESSION: No acute findings in the abdomen or pelvis. Placement of the cecum in the left upper quadrant, suggesting a mobile cecum. Electronically signed by Julio Barfield 09-05-2024 6:37 PM Hospital Course (1) GI bleed: (2) HTN (hypertension): (3) Hyperlipidemia, unspecified: (4) Coronary artery disease: (5) Hx pulmonary embolism: (6) PAF (paroxysmal atrial fibrillation): Plan 73-year-old female presenting with complaint of GI bleed, black stools with occasional bright red blood. Patient was admitted for similar complaints 07/28 - 07/31/2024. She had EGD and colon at that time with no revealing source. She was found to have diverticulosis. Patient could possibly have ongoing diverticular bleed. She is hemodynamically stable. Hemoglobin = 12.1, hematocrit = 36.4 on admission. #GI bleedsuspected. Source unclear. Patient is hemodynamically stable, no brisk bleeding, hemoglobin = 12.1, hematocrit = 36.4. BUN is mildly elevated at 31. Patient does appear to be somewhat dry on exam and lab values. Suspect H/H to decrease on repeat after she receives IV fluid hydration. Admitted to medical telemetry Maintain peripheral IV access Hemoccult all stools Monitor CBC every 8 hourstransfuse for symptomatic anemia or hemoglobin less than 7 D/C PPI drip and change to Protonix 40mg IV BID Continue Pepcid 20 mg p.o. daily Consulted GI, seen on 09/06, recommended outpatient f/u with small bowel endoscopy - NPO currently, but can have meds - HGB 9.7 on AM labs, but suspect dilution as opposed to active bleeding #Elevated troponin very mild elevation of troponin at 17.8. Patient has chronic elevation of troponin upon review of prior labs. She denies chest pain Repeat troponin this AM 17.0, essentially unchanged, ACS ruled out #AKIsuspect secondary to volume contraction. Patient reports that she has not been eating or drinking well since returning home BUN = 31, creatinine = 1.25. Increased from most recent value of 0.85 on 07/30/2024 Will continue gentle IV fluids with LR at 100 mL/h Repeat chemistry this AM noted improvement in her creatinine to 0.98 Avoid nephrotoxic agents Renal dosing were needed - CLARENCE has resolved #Hypertensionpatient's blood pressure presently well-controlled amlodipine held throughout stay Continue to monitor blood pressure #Hyperlipidemia hold Crestor for now #History of pulmonary embolismpatient on anticoagulation with Eliquis Hold Eliquis for now in setting of presumed bleed #Paroxysmal atrial fibrillationpatient presently flipped into afib with variable rate control Hold Eliquis - Given a dose of IV Metoprolol 5mg x1 and then given a dose of Lopressor 25mg PO x1 on 09/06 in AM - Resumed Metoprolol Succinate 50mg qHS on 09/06 - Flipped back into NSR noted on tele monitor on 09/07 #UTI UA did not appear grossly infected but urine cx with growth of enterococcus faecalis, sensitivities pending - D/c home on course of nitrofurantoin 100mg BID x5 days Patient was seen this AM, feeling better, tolerating dietary advancement. H&H stable. Is medically stable for discharge home with outpatient f/u with pcp and GI to undergo small bowel endoscopy. Hold eliquis for at least the next 2 weeks or until seen in follow up and undergoes additional diagnostic study. Could consider possibly resuming at decreased dose, but would defer to pcp/GI on this. Explained that she is at risk when she flips into Afib of stroke while being off of the Eliquis, she voiced understanding. Additionally, her amlodipine has been held during her stay and her BP this AM is 94/57. Would continue holding/discontinue upon discharge. She can f/u with her family doctor to determine if this medication needs to be resumed. Plan has been d/w Dr. Carbajal who is in agreement with aforementioned. Total time for discharge: 36 minutes Supervising Physician Co-Signing Physician Notes The patient was not seen by me. The chart was reviewed. Case discussed with BRYANT Lebron. Agree with assessment and plan Coding Level of Care Code 33641 INP/OBS DISCH >30 MIN Diagnoses GI bleed K92.2 HTN (hypertension) I10 Hyperlipidemia, unspecified E78.5 Coronary artery disease I25.10 Hx pulmonary embolism Z86.711 PAF (paroxysmal atrial fibrillation) I48.0
== END 2024-09-07 12:59 | disposition home or self-care (01) | DRG 813 ==
LOC: SUATTDRO → ED 16:52 → INTOOBSV 22:00 → 2N 22:00 → SUATTDRO 22:00 → 2N 09-06